=== PATIENT | male | born 1955 | race African-American/Black ===

== ENCOUNTER 2020-05-02 18:33 | Inpatient (IN) | payer OTHER, SELFPAY ==
[2020-05-02] VITALS (10 sets, daily range): BP systolic 142–171; BP diastolic 91–109; PULSE 72–101; RESP 18–35; TEMP 36.6–37.2; O2SAT 98–100
--- NOTE | ~2020-05-02 | XR_ITS ---
EXAMINATION: XR chest 1V portable INDICATION: Shortness of breath and hypoxia TECHNIQUE: Portable AP chest at 1907 hours COMPARISON: None available FINDINGS: There are airspace opacities of the mid and lower lung zones. No pleural effusion or pneumo thorax is identified. The heart size is upper limits of normal for technique. IMPRESSION: 1. Airspace opacities of the mid and lower lung zones, consistent with atelectasis versus pneumonia. Reviewed, dictated and finalized at location A. IMPRESSION: 1. Airspace opacities of the mid and lower lung zones, consistent with atelecta sis versus pneumonia.
--- NOTE | 2020-05-02 18:36 | ECG_ITS ---
Measurements Intervals [place] Rate: 97 P: MT: 0 QRS: 55 QRSD: 122 T: 96 QT: 376 QTc: 479 Interpretive Statements ECTOPIC ATRIAL RHYTHM CHANGES TO SINUS RHYTHM VENTRICULAR PREMATURE COMPLEX BORDERLINE ST-T WAVE ABNORMALITY- HIGH LATERAL LEADS BASELINE ARTIFACT- II, III, AVF, V2-V6 ABNORMAL ECG Electronically Signed On 05-02-2020 19:40:12 CDT by Willard Funk D.O.
--- NOTE | 2020-05-02 18:46 | ED.GENADULT ---
HPI - General Adult General Chief complaint: Shortness of Breath/Dyspnea Stated complaint: difficulty breathing Time Seen by Provider: 05/02/20 18:35 Source: patient and other (friend) History of Present Illness HPI narrative: Patient is a 65 y/o male complaining of severe SOB starting earlier today. There is no alleviating or exacerbating factor. He has some cough. He denies chest pain for fever. He was given Neb by EMS. He has history of COPD. He is not on O2. He reportedly had sat of 53% on RA when EMS arrived. He was given Neb and started on CPAP by EMS. Related Data Home Medications Medication Instructions Recorded Confirmed Unable to Obtain Home Medications 05/02/20 05/02/20 Allergies Allergy/AdvReac Type Severity Reaction Status Date / Time No Known Allergies Allergy Verified 05/02/20 18:47 Review of Systems Constitutional: Constitutional: Denies chills, Denies fever(s), Denies headache(s) and Denies weakness Eyes: Eyes: Denies blurry vision ENT: Denies headache(s) and Denies neck pain Cardiovascular: Cardiovascular: Denies chest pain and Reports dyspnea Respiratory: Respiratory: Reports cough and Reports dyspnea Gastrointestinal: Gastrointestinal: Denies abdominal pain, Denies diarrhea, Denies nausea and Denies vomiting Genitourinary: Genitourinary: Denies hematuria and Denies dysuria Musculoskeletal: Musculoskeletal: Denies back pain and Denies neck pain Neurologic: Denies headache(s) and Denies weakness [facility] Social History Social History Smoking status: Current every day smoker Tobacco type: cigarettes Alcohol intake: current Drinks per week: 10 Substance use: never Gender identity (if verbalized by the patient): Male Spiritual care concerns: No Exam Const: General: well developed and acute distress Orientation/consciousness: oriented to person, oriented to place, oriented to time and patient oriented x3 HENMT: Head: normocephalic Ears: external ears normal General nose exam: Normal external nose present Eyes: General: appearance normal, both eyes and all related structures Conjunctivae: conjunctivae normal Neck: Neck: normal visual inspection and full ROM Chest: Chest palpation & inspection: normal inspection of the chest and no tenderness Resp: Effort & Inspection: labored and tachypneic Cardio: Rate: tachycardic Rhythm: regular rhythm GI: GI Palp: No abdominal tenderness and Yes Soft to palpation Skin: General skin exam: normal color and turgor normal Neuro: General: oriented to person, oriented to place, oriented to time and patient oriented x3 Cognition (Neuro): normal cognition Extrem: General: normal to inspection, full ROM and edema bilateral Psych: Appearance: grossly normal Mental Status: mental status grossly normal Affect: normal affect Course Consultations Consultation #1: Discussed with DWIGHT Mendiola, who agrees to admit to Dr. Schaefer. Date: 05/02/20 Time: 19:43 Vital Signs Vital signs: Vital Signs Temperature 37.2 C 05/02/20 18:40 Pulse Rate 101 H 05/02/20 18:40 Respiratory Rate 34 H 05/02/20 18:40 Blood Pressure 161/100 H 05/02/20 18:40 Pulse Oximetry 100 05/02/20 18:40 Temperature 36.6 C 05/02/20 20:22 Pulse Rate 87 05/02/20 21:10 Respiratory Rate 31 H 05/02/20 21:10 Blood Pressure 164/100 H 05/02/20 20:49 Pulse Oximetry 100 05/02/20 21:10 Medical Decision Making Vital Signs Vital Signs: Vital Signs Temperature 37.2 C 05/02/20 18:40 Pulse Rate 101 H 05/02/20 18:40 Respiratory Rate 34 H 05/02/20 18:40 Blood Pressure 161/100 H 05/02/20 18:40 Pulse Oximetry 100 05/02/20 18:40 Temperature 36.6 C 05/02/20 20:22 Pulse Rate 87 05/02/20 21:10 Respiratory Rate 31 H 05/02/20 21:10 Blood Pressure 164/100 H 05/02/20 20:49 Pulse Oximetry 100 05/02/20 21:10 Lab Data Result diagrams: 05/02/20 18:42 10/0
[2020-05-02 18:47] LABS: Alveolar/Arterial O2 Gradient 32.3 mmHg; Base Excess ABG -0.8 mEq/l (+/-2.0); Device NASAL CANNULA; Fractional Inspired Oxygen 32 %; HCO3 ABG 27.3 mEq/l (22.0-26.0); Modified Allen's Test Pass; Oxygen Content ABG 17.7 %vol (16.0-22.0); Oxygen Saturation ABG 97.9 % (95.0-100.0); Oxyhemoglobin 94.3 % THb (90.0-100.0); PCO2 ABG 60.9 mmHg (35.0-45.0); PO2 ABG 124.6 mmHg (80.0-100.0); PO2 FiO2 Ratio Arterial Blood 3.89 %; Site Drawn RIGHT RADIAL; Total Hemoglobin 13.2 g/dL (12.0-18.0); pH ABG 7.269 (7.350-7.450)
[2020-05-02] MEDS: Please add drug allergy info to patient profile. 1 EACH XX (18:51)
[2020-05-02] MEDS: methylPREDNISolone SOD SUCC 125 MG VIAL IV PUSH (18:51)
[2020-05-02] MEDS: FUROSEMIDE INJ 40 MG/4 ML VIAL IV PUSH (18:51)
[2020-05-02 18:52] LABS: Basophils Percent Auto 0.5 % (0.2-1.2); Eosinophils Absolute Auto 0.2 K/mm3 (0-0.3); Eosinophils Percent Auto 2.4 % (0-4.4); Hemoglobin 12.5 g/dL (14.0-18.0); Immature Granulocyte Absolute 0.05 K/mm3 (0.00-0.031); Immature Granulocyte Percent A 0.6 % (0-0.5); Lymphocytes Absolute Auto 2.04 K/mm3 (0.9-3.2); Lymphocytes Percent Auto 24.3 % (18.3-44.2); Mean Corpuscular HGB Conc 32.1 g/dl (32-36); Mean Corpuscular Hemoglobin 29.6 pg (26-34); Mean Corpuscular Volume 92.4 fl (80-100); Mean Platelet Volume 10.2 fl (7.4-10.4); Monocytes Absolute Auto 0.5 K/mm3 (0.1-0.6); Monocytes Percent Auto 6.3 % (2.6-8.5); Neutrophils Absolute Auto 5.5 K/mm3 (1.3-6.7); Neutrophils Percent Auto 65.9 % (45.5-73.1); Platelet Count Result 251 k/mm3 (150-375); Red Blood Count 4.22 M/mm3 (4.6-6.20); Red Cell Distribution Width 14.8 % (11.5-14.5); White Blood Count 8.4 K/mm3 (4.5-10.0)
--- NOTE | 2020-05-02 18:53 | PC.NURSE ---
pt and family unable to give home medications at this time.
[2020-05-02 19:01] LABS: Alanine Aminotransferase 18 U/L (4-50); Albumin Level 4.5 g/dL (3.5-5.1); Alkaline Phosphatase 94 U/L (38-126); Anion Gap 12 mmol/L (8-16); Aspartate Amino Transferase 26 U/L (17-59); Bilirubin,Total 0.2 mg/dL (0.2-1.3); Blood Urea Nitrogen 13 mg/dL (9-20); Calcium 9.2 mg/dL (8.4-10.2); Carbon Dioxide 30 mmol/L (22-30); Chloride 99 mmol/L (98-107); Estimated CRCL calculation 78 ml/min; Estimated Glomerular Filt Rate > 60; Glucose 171 mg/dL (75-110); Potassium 3.7 mmol/L (3.4-5.0); Sodium 141 mmol/L (137-145)
--- NOTE | 2020-05-02 19:08 | PC.NURSE ---
assumed care of pt at this time. Report from Jarad
--- NOTE | 2020-05-02 19:08 | PC.NURSE ---
REPORT TO LAVELL CRUZ AT THIS TIME, SHE HAS ASSUMED PT CARE.
[2020-05-02 19:15] LABS: NT Pro B Type Natriuretic Pept 274 PG/ML (5-100); Troponin I 0.034 ng/mL (0.000-0.034)
--- NOTE | 2020-05-02 21:17 | PC.NURSE ---
This patient, Philip Barron, was admitted to Intensive Care Unit-2. Patient/family oriented to hospital policies and general routines including ID bracelet, bed and alarms, visiting hours, pain management, procedures, bathroom and other care routines, personal items, smoking policy, room service/diet, and visiting hours. Valuables list has been completed. Information on how to activate the Rapid Response Team has been discussed. Patient/Family are encouraged to report perceived risks to care and to ask questions if they do not understand what they are told or what they should do.
[2020-05-02 21:51] LABS: Alveolar/Arterial O2 Gradient 57.6 mmHg; Base Excess ABG 0.3 mEq/l (+/-2.0); Fractional Inspired Oxygen 35 %; HCO3 ABG 24.7 mEq/l (22.0-26.0); Oxygen Saturation ABG 98.9 % (95.0-100.0); Oxyhemoglobin 96.8 % THb (90.0-100.0); PCO2 ABG 39.2 mmHg (35.0-45.0); PO2 ABG 146.4 mmHg (80.0-100.0); PO2 FiO2 Ratio Arterial Blood 4.18 %; pH ABG 7.417 (7.350-7.450)
[2020-05-02 21:52] LABS: Device BIPAP; Expiratory Pressure 8 cmH2O; Inspiratory Pressure 14 cmH2O; Modified Allen's Test Pass; Site Drawn RIGHT RADIAL
[2020-05-02 22:19] LABS: Troponin I 0.069 ng/mL (0.000-0.034)
[2020-05-03] VITALS (10 sets, daily range): BP systolic 136–147; BP diastolic 69–88; PULSE 75–91; RESP 18–22; TEMP 36.4–37.4; O2SAT 95–99
[2020-05-03 00:47] LABS: Troponin I 0.069 ng/mL (0.000-0.034)
--- NOTE | 2020-05-03 06:53 | PM.IMHP ---
H&P: HPI History of Present Illness Date/Time: 05/03/20 06:53 Chief complaint: acute respiratory failure Narrative: Philip Barron is a 65 year old male with PMHx DMII, HTN, COPD. He has a history of COPD, uses inhalers at home, however does not recall the medications. Will call pharmacy to reconcile medications. He went to [place], [place] 2 days ago to meet some friends. After he came back home he felt SOB. He states he has these episodes of dyspnea every once in a while, last time 5 years ago. He still smokes 1/2 ppd. He denies sick contacts, travels outside of [place]. In the ED: he was found to be hypoxic 53% on RA and tachypneic with RR 30s. labs normal. ABG 7.269/60.9/124.6. He was given nebulizer treatment and CPAP. He was admitted overnight to ICU for acute hypoxic and hypercapnic respiratory failure. Review of Systems Review of Systems: All systems reviewed & are unremarkable except as noted in HPI and below PMFSH Past Medical History Medical History (Updated 05/03/20 @ 08:32 by Elza Apple DO) COPD (chronic obstructive pulmonary disease) DMII (diabetes mellitus, type 2) HTN (hypertension) Family History Family History (Updated 05/03/20 @ 08:31 by Elza Apple DO) Other Diabetes mellitus Hypertension Social History Social History (Updated 05/03/20 @ 08:47 by Elza Apple DO) Smoking packs per day: 0.5 Smoking cigarettes per day: 10.0 Smoking status: Current every day smoker Tobacco type: cigarettes Alcohol intake: current Drinks per week: 10 Substance use: never Living arrangements: alone Occupation/Education: unemployed Additional occupation/education comments: Disabled Gender identity (if verbalized by the patient): Male Spiritual care concerns: No Meds Home Medications and Allergies Home Medications Medication Instructions Recorded Confirmed Type albuterol sulfate 2.5 mg INHALATION Q4H PRN 05/03/20 05/03/20 History albuterol sulfate See Rx Instructions .ROUTE 05/03/20 05/03/20 History .COMPLEX PRN cilostazol 1 mg PO TID 05/03/20 05/03/20 History gabapentin 300 mg PO BID 05/03/20 05/03/20 History hydrochlorothiazide 25 mg PO DAILY 05/03/20 05/03/20 History sitagliptin [Januvia] 100 mg PO DAILY 05/03/20 05/03/20 History trazodone 50 mg PO HS 05/03/20 05/03/20 History Allergies Allergy/AdvReac Type Severity Reaction Status Date / Time No Known Allergies Allergy Verified 05/02/20 18:47 Vital Signs Vital Signs - 24 hr 05/02/20 18:40 05/02/20 18:45 05/02/20 18:52 Temperature 37.2 C Pulse Rate 101 H 97 93 Respiratory Rate 34 H 35 H Blood Pressure 161/100 H 171/109 H Pulse Oximetry 100 100 100 05/02/20 18:55 05/02/20 20:22 05/02/20 20:49 Temperature 36.6 C Pulse Rate 94 87 88 Respiratory Rate 34 H 26 H 19 Blood Pressure 158/91 H 164/100 H Pulse Oximetry 100 100 100 05/02/20 21:10 05/02/20 22:00 05/02/20 22:49 Temperature 37.1 C Pulse Rate 87 76 73 Respiratory Rate 31 H 18 Blood Pressure 142/92 H Pulse Oximetry 100 100 100 05/02/20 23:26 05/03/20 00:00 05/03/20 01:39 Temperature 37.4 C Pulse Rate 72 77 75 Respiratory Rate 19 22 H Blood Pressure 140/81 Pulse Oximetry 98 95 99 05/03/20 01:40 05/03/20 02:00 05/03/20 04:00 Temperature 37.1 C Pulse Rate 75 78 77 Respiratory Rate 18 18 20 Blood Pressure 140/73 147/88 H Pulse Oximetry 98 99 96 05/03/20 06:00 Temperature 36.4 C Pulse Rate 76 Respiratory Rate 22 H Blood Pressure 136/69 Pulse Oximetry 98 H&P: Results Labs Labs: Short CBC 05/02/20 Range/Units 18:42 WBC 8.4 (4.5-10.0) K/mm3 Hgb 12.5 L (14.0-18.0) g/dL Hct 39.0 L (42.0-52.0) % Plt Count 251 (150-375) k/mm3 BMP 05/02/20 18:42 Sodium 141 Potassium 3.7 Chloride 99 Carbon Dioxide 30 BUN 13 Creatinine 1.00 Glucose 171 H Calcium 9.2 Cardiac Enzymes 05/02/20 05/02/20 05/03/20 Range/Units 18:42 21:48 00:10 Trop
[2020-05-03 09:29] LABS: Glucose Point of Care 166 (65-105)
--- NOTE | 2020-05-03 09:34 | PM.SD ---
Same Day Admit/Disch: HPI History of Present Illness Chief complaint: acute respiratory failure Narrative: Philip Barron is a 65 year old male with PMHx DMII, HTN, COPD. He has a history of COPD, uses inhalers at home, however does not recall the medications. Will call pharmacy to reconcile medications. He went to [place], [place] 2 days ago to meet some friends. After he came back home he felt SOB. He states he has these episodes of dyspnea every once in a while, last time 5 years ago. He still smokes 1/2 ppd. He denies sick contacts. Denies fever, chills, nausea, vomiting, diarrhea, chest pain, sputum production. In the ED: he was found to be hypoxic 53% on RA and tachypneic with RR 30s. labs normal, troponin <0.08. ABG 7.269/60.9/124.6. He was given nebulizer treatment and Bipap for 1 hour. He was admitted overnight to ICU for acute hypoxic respiratory failure. F/u ABG showed 7.417/39.2/146.4. Once he got to the ICU, he was O2sat 100% on room air. [facility] Past Medical History Medical History (Updated 05/03/20 @ 09:51 by Elza Apple DO) COPD (chronic obstructive pulmonary disease) Diabetes mellitus with peripheral autonomic neuropathy HTN (hypertension) Insomnia Family History Family History (Updated 05/03/20 @ 08:31 by Elza Apple DO) Other Diabetes mellitus Hypertension Social History Social History (Updated 05/03/20 @ 08:47 by Elza Apple DO) Smoking packs per day: 0.5 Smoking cigarettes per day: 10.0 Smoking status: Current every day smoker Tobacco type: cigarettes Alcohol intake: current Drinks per week: 10 Substance use: never Living arrangements: alone Occupation/Education: unemployed Additional occupation/education comments: Disabled Gender identity (if verbalized by the patient): Male Spiritual care concerns: No Same Day Admit/Disch: Med Pre-admit Medications Home Medications Medication Instructions Recorded Confirmed Type albuterol sulfate 2.5 mg INHALATION Q4H PRN 05/03/20 05/03/20 History albuterol sulfate See Rx Instructions .ROUTE 05/03/20 05/03/20 History .COMPLEX PRN cilostazol 1 mg PO TID 05/03/20 05/03/20 History gabapentin 300 mg PO BID 05/03/20 05/03/20 History hydrochlorothiazide 25 mg PO DAILY 05/03/20 05/03/20 History sitagliptin [Januvia] 100 mg PO DAILY 05/03/20 05/03/20 History trazodone 50 mg PO HS 05/03/20 05/03/20 History Exam Const: General: no acute distress HENMT: General nose exam: Normal nares present Mouth: Yes moist mucous membranes Eyes: General: appearance normal, both eyes and all related structures Sclera: sclerae normal Pupils: Equal, round and reactive pupils present Neck: Neck: supple and no JVD Resp: Effort & Inspection: normal respiratory effort Auscultation: no crackles, no rales, no rhonchi and wheezes expiratory wheezes and scattered wheezes Cardio: Rate: regular rate Rhythm: regular rhythm Heart sounds: no murmurs and no rubs GI: Auscultation: normal bowel sounds Skin: General skin exam: normal color Rashes: rashes noted Other: RLE distal dryness Neuro: Cognition (Neuro): normal cognition Speech: normal speech Motor exam (neuro): 5/5 motor strength present throughout Sensory Exam: normal sensation Extrem: General: normal to inspection and normal exam except as noted Other: dry skin RLE distal Psych: Mental Status: mental status grossly normal Affect: normal affect DS: Data Data Completed and Pending Labs on day of discharge: Labs from last 24 hours 05/03/20 05/03/20 05/02/20 09:08 00:10 21:48 WBC RBC Hgb Hct MCV MCH MCHC RDW Plt Count MPV Immature Gran % (Auto) Neut % (Auto) Lymph % (Auto) [place] % (Auto) Eos % (Auto) Baso % (Auto) Lymph # (Auto) [place] # (Auto) Eos # (Auto) Baso # (Auto) Abs Immat Gran (auto) Absolute Neuts (auto) Absolute Nucleated RBC Nucleated RBC % Puncture Si
[2020-05-03] MEDS: ALBUTEROL SULFATE (*SP) AEROSOL 1 PUFF 2 PUFF INHALATION ×2 (10:07→11:50)
[2020-05-03 12:39] LABS: Glucose Point of Care 156 (65-105)
[2020-05-03 14:31] LABS: SARS-CoV-2 RNA PCR Negative
== END 2020-05-03 13:40 | disposition home or self-care (01) | DRG 133 ==
LOC: ANHED 19:52 → ANHICU 21:34
PROVIDERS: Admitting Provider Internal Medicine; Emergency Provider Emergency Medicine; Visit Provider Student in an Organized Health Care Education/Training Program
DX: J96.01 Acute respiratory failure with hypoxia (principal); J44.1 Chronic obstructive pulmonary disease with (acute) exacerbation; Z20.828 Contact with and (suspected) exposure to other viral communicable diseases; E11.43 Type 2 diabetes mellitus with diabetic autonomic (poly)neuropathy; I10 Essential (primary) hypertension; G47.00 Insomnia, unspecified; F17.210 Nicotine dependence, cigarettes, uncomplicated
CPT/HCPCS: 36415; 36600; 71045; 80053; 82805; 83880; 84484; 85025; 87635; 93005; 94002; 94640; 96374; 96375; 99291; A9270; C9803; J1940; J2930; U0003

== ENCOUNTER 2021-02-27 18:21 | Inpatient (IN) | payer MEDICARE, MEDICAID, SELFPAY ==
--- NOTE | ~2021-02-27 | MR_ITS ---
EXAMINATION: MR brain/brain stem wo/w con DATE: 02/28/2021 12:45 INDICATION: Seizure. TECHNIQUE: Magnetic resonance imaging (MRI) of the brain and brainstem was performed without and with 20 mL MultiHance intravenous contrast. Sequences included sagittal and axial T1-weighted FSE, axial diffusion-weighted FS EPI, axial T2*-weighted GRE, axial T2-weighted FLAIR Propeller, and axial T2-we ighted Propeller. Postcontrast sequences included axial and coronal T1-weighted FSE. Apparent diffusi on coefficient (ADC) maps were created. COMPARISON: Head CT 02/27/2021 FINDINGS: There is old lacunar infarcts in the artem and thalami. There are old infarcts involving kathya ateral basal ganglia and anterior limb left internal capsule. There is a small old infarct in right f rontal lobe. There are scattered areas of nonspecific increased T2-weighted signal intensity in the c erebral white matter, which is within normal limits for the patient's age. There is no intracranial h emorrhage, acute infarction, or abnormal intracranial mass lesion. There is ex vacuo dilatation of an terior body of left lateral ventricle. There is an old blowout fracture of medial wall of left orbit. There are likely changes of right ocular lens replacement surgery. The mastoid air cells are normal. IMPRESSION: 1. Multiple old infarcts in the brain. Reviewed, dictated and finalized at location A.
--- NOTE | ~2021-02-27 | CT_ITS ---
EXAMINATION: CT brain wo con DATE: 02/27/2021 20:03 INDICATION: Seizure. TECHNIQUE: Computed tomography (CT) of the head was performed without intravenous contrast. The mA wa s adjusted according to patient size. Iterative reconstruction technique was employed. The dose-lengt h product was 605.33 mGy-cm. COMPARISON: None FINDINGS: There is an old lacunar infarct in the artem. There are old infarcts involving the bilateral basal ganglia and anterior limb left internal capsule. There is a small old infarct in right frontal lobe. There is no intracranial hemorrhage, acute infarction, or abnormal intracranial mass lesion. T he ventricles are normal in size. There are likely changes of right ocular lens replacement surgery. There is an old blowout fracture of medial wall of left orbit. The mastoid air cells are normal. IMPRESSION: 1. Multiple old infarcts in the brain. Reviewed, dictated and finalized at location A.
--- NOTE | ~2021-02-27 | US_ITS ---
EXAMINATION: US carotid duplex BI DATE: 02/28/2021 13:09 INDICATION: Stroke and seizure. Cerebral atherosclerosis. TECHNIQUE: Grayscale, color Doppler, and pulsed Doppler images of the cervical carotid arteries were obtained. The degree of vessel stenosis is placed in one of the following categories: normal, <50%, 5 0-69%, >=70% but less than near-occlusion, near-occlusion, or total occlusion. Note that percent sten osis relative to normal distal artery lumen diameter is indirectly measured from velocity measurement s as described by Jose Ramon, et al. Radiology 2003; [id number]. COMPARISON: None. FINDINGS: RIGHT: The right common carotid artery (CCA) peak systolic velocity (PSV) is 69 cm/s. The right internal car otid artery (ICA) PSV is 84 cm/s. The right ICA end-diastolic velocity (EDV) is 40 cm/s. The right IC A/CCA PSV ratio is 1.2. Grayscale and color Doppler images yield an estimate of <50% diameter reducti on from plaque in the ICA. The external carotid artery (ECA) PSV is 117 cm/s. There is antegrade flow in the right vertebral artery. LEFT: The left CCA PSV is 61 cm/s. The left ICA PSV is 85 cm/s. The left ICA EDV is 28 cm/s. The left ICA/C CA PSV ratio is 1.4. Grayscale and color Doppler images yield an estimate of <50% diameter reduction from plaque in the ICA. The ECA PSV is 68 cm/s. There is antegrade flow in the left vertebral artery. IMPRESSION: 1. <50% stenosis in the right internal carotid artery. 2. <50% stenosis in the left internal carotid artery. Reviewed, dictated and finalized at location A.
[2021-02-27 18:20] VITALS: BP 132/92; PULSE 86; RESP 22; TEMP 36.2; O2SAT 98
[2021-02-27 18:27] VITALS: RESP 16; O2SAT 99
--- NOTE | 2021-02-27 19:09 | PC.NURSE ---
report to LAVELL Ortiz
--- NOTE | 2021-02-27 19:25 | PC.NURSE ---
Assumed care of pt at this time. Pt A&Ox4, resting on stretcher. No complaints at this time. Reviewed visitor policy with pt and family.
[2021-02-27 19:26] VITALS: BP 122/77; PULSE 89; RESP 26; O2SAT 97
[2021-02-27 19:50] LABS: Alanine Aminotransferase 19 U/L (4-50); Albumin Level 4.4 g/dL (3.5-5.1); Alkaline Phosphatase 78 U/L (38-126); Anion Gap 16 mmol/L (8-16); Aspartate Amino Transferase 28 U/L (17-59); Bilirubin,Total 0.4 mg/dL (0.2-1.3); Blood Urea Nitrogen 17 mg/dL (9-20); Calcium 9.6 mg/dL (8.4-10.2); Carbon Dioxide 19 mmol/L (22-30); Chloride 102 mmol/L (98-107); Estimated CRCL calculation 73 ml/min; Estimated Glomerular Filt Rate > 60; Glucose 122 mg/dL (65-110); Phosphorus 4.1 mg/dL (2.5-4.5); Potassium 3.8 mmol/L (3.4-5.0); Sodium 137 mmol/L (137-145)
[2021-02-27 19:54] LABS: Basophils Percent Auto 0.4 % (0.2-1.2); Eosinophils Absolute Auto 0.2 K/mm3 (0-0.3); Eosinophils Percent Auto 2.3 % (0-4.4); Hematocrit 37.5 % (42.0-52.0); Hemoglobin 11.7 g/dL (14.0-18.0); Immature Granulocyte Absolute 0.05 K/mm3 (0.00-0.031); Immature Granulocyte Percent A 0.6 % (0-0.5); Lymphocytes Absolute Auto 2.41 K/mm3 (0.9-3.2); Lymphocytes Percent Auto 26.6 % (18.3-44.2); Mean Corpuscular HGB Conc 31.2 g/dl (32-36); Mean Corpuscular Hemoglobin 27.6 pg (26-34); Mean Corpuscular Volume 88.4 fl (80-100); Monocytes Absolute Auto 0.7 K/mm3 (0.1-0.6); Monocytes Percent Auto 8.2 % (2.6-8.5); Neutrophils Absolute Auto 5.6 K/mm3 (1.3-6.7); Neutrophils Percent Auto 61.9 % (45.5-73.1); Platelet Count Result 243 k/mm3 (150-375); Red Blood Count 4.24 M/mm3 (4.6-6.20); Red Cell Distribution Width 15.2 % (11.5-14.5); White Blood Count 9.1 K/mm3 (4.5-10.0)
[2021-02-27 20:02] LABS: Ethanol 42 mg/dL (<10)
[2021-02-27 20:26] LABS: Add Urine Microscopic? YES; Appearance Urine Clear (Clear); Bilirubin Urine Negative (Negative); Blood Urine Negative (Negative); Color Urine Yellow (Yellow); Glucose Urine UA Negative (Negative); Ketones Urine Negative (Negative); Leukocyte Esterase Ur Negative LEU/UL (Negative); Nitrate Urine Negative (Negative); Protein Urine 1+ mg/dL (Negative); RBC Urine 0-2 /hpf (0-2); Specific Grav Ur 1.015 (1.001-1.035); Squamous Epithelial Cell Urine Rare /hpf (Few); Urobilinogen Urine Negative mg/dL (<2.0); WBC Urine 0-3 /hpf
[2021-02-27 20:39] LABS: Amphetamine Screen Urine Negative (Negative); Barbiturate Screen Urine Negative (Negative); Benzodiazepines Screen Urine Negative (Negative); Cannabinoid Screen Urine Negative (Negative); Cocaine Screen Urine Negative (Negative); Methadone Screen Urine Negative (Negative); Opiate Screen Urine Negative (Negative); Phencyclidine Screen Urine Negative (Negative)
[2021-02-27 21:17] VITALS: BP 111/54; PULSE 85; RESP 27; O2SAT 100
[2021-02-27 22:15] VITALS: BP 125/79; PULSE 82; RESP 29; O2SAT 100
--- NOTE | 2021-02-27 22:59 | PC.NURSE ---
Pt c/o SOB at this time, increased WOB noted. Pt states he uses inhalers at home and hasn't been able to use since hes been in ED. EDP notified.
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
[2021-02-27] MEDS: ALBUTEROL SULFATE (*SP) AEROSOL 1 PUFF 2 PUFF INHALATION (23:32)
--- NOTE | 2021-02-27 23:36 | ECG_ITS ---
Measurements Intervals [place] Rate: 87 P: 258 [place]: 103 QRS: 50 QRSD: 98 T: 49 QT: 363 QTc: 439 Interpretive Statements ECTOPIC ATRIAL RHYTHM NONSPECIFIC T-WAVE ABNORMALITY- DIFFUSE LEADS BASELINE ARTIFACT- I, II, III, AVR, AVL, AVF, V4-V6 ABNORMAL ECG Electronically Signed On 03-01-2021 8:49:11 CDT by Willard Funk D.O.
--- NOTE | 2021-02-27 23:36 | PC.NURSE ---
respiratory at bedside
[2021-02-28] VITALS (15 sets, daily range): BP systolic 111–146; BP diastolic 65–90; PULSE 60–84; RESP 14–22; TEMP 36.1–36.9; O2SAT 96–100; BMI 32.5
--- NOTE | 2021-02-28 | ECHO_ITS ---
Patient Info Name: Philip Barron Age: 66 years : 1955 Gender: Male Ht: 73 in Wt: 246 lbs BSA: 2.43 m2 HR: 79 bpm BP: 132 / 81 mmHg Heart Rhythm: Sinus Rhythm Technical Quality: Fair Exam Date: 02/28/2021 9:49 AM Exam Location: [facility] Exam Room: [facility] Patient Status: Inpatient Admit Date: 02/27/2021 Staff Ordering Physician: Brenna Trejo MD Metalsmith Apprentice: [place] RDCS Attending Provider: Brenna Trejo MD Referring Physician: Maya JEFF; Exam Type: CA echo doppler color flow Study Info Indications - seizure Complete two-dimensional, color flow and Doppler transthoracic echocardiogram is performed. Summary 1. Complete two-dimensional, color flow and Doppler transthoracic echocardiogram is performed. 2. Left ventricular chamber dimension is normal. 3. Left ventricular systolic function is hyperdynamic, estimated at >70%. 4. The aortic valve is normal. 5. The mitral valve has normal leaflets. 6. Small posterior pericardial effusion. Left Ventricle Left ventricular chamber dimension is normal. Left ventricular systolic function is hyperdynamic, estimated at >70%. The left ventricular diastolic function is normal. Right Ventricle Right ventricular chamber dimension is normal. Left Atria Left atrial chamber dimension is normal. Right Atria Right atrial chamber dimension is normal. Aortic Valve The aortic valve is normal. Pulmonic Valve The pulmonic valve is not well visualized. Mitral Valve The mitral valve has normal leaflets. Tricuspid Valve The tricuspid valve leaflets are normal. Pericardium/Pleural There is trivial pericardial effusion. Aorta The aortic root size at the sinus of Valsalva is normal. Left Ventricular Outflow Tract Name Value Normal LVOT 2D LVOT Diameter 2.2 cm LVOT Doppler LVOT Peak Gradient 3 mmHg LVOT Mean Gradient 2 mmHg LVOT VTI 19 cm LVOT VTI/AV VTI Ratio 0.9 LVOT Stroke Volume 72 ml LVOT CO 14.1 l/min LVOT CI 5.8 l/min/m2 Pulmonic Valve Name Value Normal PV Doppler PV Peak Gradient 3 mmHg Mitral Valve Name Value Normal MV Doppler MV Decel [place] 333 cm/s2 MV PHT 60 ms MV Area (PHT) 3.7 cm2 4.0-5.0 MV Diastolic Function
[2021-02-28] MEDS: levETIRAcetam 1000MG/NACL100ML 1,000 MG/100 ML BAG 400 MG IVPB (00:15)
--- NOTE | 2021-02-28 00:53 | PM.IMHP ---
H&P: HPI History of Present Illness Date/Time: 02/28/21 00:53 Chief Complaint: SEIZURE Narrative: THIS IS A 66-YEAR-OLD MALE WITH PAST MEDICAL HISTORY SIGNIFICANT FOR COPD / EMPHYSEMA, PATIENT SMOKES 10 CIGARETTES A DAY DAILY, HYPERTENSION, TYPE 2 DIABETES MELLITUS. PATIENT HAS BEEN HIS USUAL STATE OF HEALTH UP UNTIL TODAY IN THE AFTERNOON AFTER ARRIVING HOME FROM [employer]OPPING AROUND WHEN HE HAD HIS EYES ROLL OVER AND HE FELL WITH A SEIZURE GRAND MAL SEIZURE TO THE GROUND CALLED EMS AND PATIENT WAS RUSHED TO THE HOSPITAL THERE WAS NO RELAXATION OF OF SPHINCTERS. PATIENT HAS NO RECOLLECTION OF THE EVENT. AT THE TIME OF MY VISIT HE DENIED ANY DISCOMFORT NO SHORTNESS OF BREATH NO COUGH NO SPUTUM PRODUCTION NO FEVERS NO RIGORS NO CHILLS NO DIZZINESS NO LIGHTHEADEDNESS NO HEADACHES NO CHANGES IN VISION. PRELIMINARY WORKUP WAS SIGNIFICANT FOR CT OF THE HEAD WITH MULTIPLE OLD STROKES. Review of Systems Review of Systems: SEIZURE Constitutional: Constitutional: Denies chills, Denies fatigue, Denies fever(s) and Denies weakness Eyes: Eyes: Denies change in vision ENT: Denies dysphagia, Denies dizziness, Denies nasal congestion, Denies nasal discharge, Denies nasal obstruction and Denies odynophagia Cardiovascular: Cardiovascular: Denies chest pain, Denies chest pain at rest, Denies chest pain with activity, Denies irregular heart rhythm, Denies leg edema, Denies lightheadedness, Denies radiating jaw, neck or arm pain, Denies palpitations, Denies dyspnea and Denies dyspnea on exertion Respiratory: Respiratory: Denies cough, Denies dyspnea and Denies wheezing Gastrointestinal: Gastrointestinal: Denies abdominal pain, Denies diarrhea, Denies nausea and Denies vomiting Genitourinary: Genitourinary: Reports no additional male genitourinary complaints Musculoskeletal: Comments: RIGHT WRIST BRACE Integumentary/Breasts: Skin/Breast: Reports system reviewed and no additional complaints, except as docu Neurologic: Denies Neuro-related abnormal movements, Denies vertigo, Denies dizziness and Reports seizure-like activity Psychiatric: Psychiatric: Reports no additional psychiatric complaints Endocrine: Endocrine: Reports no additional endocrine complaints Hematologic/Lymphatic: Hematologic/Lymphatic: Reports no additional hematologic/lymphatic complaints Allergic/Immunologic: Allergic/Immunologic: Reports no additional allergic/immunologic complaints [facility] Past Medical History Medical History (Updated 02/28/21 @ 01:05 by Brenna Trejo MD) COPD (chronic obstructive pulmonary disease) Diabetes mellitus with peripheral autonomic neuropathy HTN (hypertension) Insomnia Family History Family History (Updated 05/03/20 @ 08:31 by Elza Apple DO) Other Diabetes mellitus Hypertension Social History Social History (Updated 05/03/20 @ 08:47 by Elza Apple DO) Smoking packs per day: 0.5 Smoking cigarettes per day: 10.0 Smoking status: Current every day smoker Tobacco type: cigarettes Alcohol intake: current Drinks per week: 10 Substance use: never Additional occupation/education comments: Disabled Gender identity (if verbalized by the patient): Male Spiritual care concerns: No Meds Home Medications and Allergies Home Medications Medication Instructions Recorded Confirmed Type Januvia 100 mg PO DAILY 05/03/20 05/03/20 History albuterol sulfate See Rx Instructions .ROUTE 05/03/20 05/03/20 History .COMPLEX PRN cilostazol 1 mg PO TID 05/03/20 05/03/20 History gabapentin 300 mg PO BID 05/03/20 05/03/20 History hydrochlorothiazide 25 mg PO DAILY 05/03/20 05/03/20 History ipratropium-albuterol 3 ml INHALATION QID PRN #120 ml 05/03/20 Rx prednisone 40 mg PO DAILY #10 tablet 05/03/20 Rx trazodone 50 mg PO HS 05/03/20 05/03/20 History Allergies Allergy/AdvReac Type Severity Reaction Status Date / Time No Known Allergies Allergy Verified 02/27/21 18:25 Cindy
--- NOTE | 2021-02-28 01:17 | PC.NURSE ---
This patient, Philip Barron, was admitted to [facility] Surg Room 315-02. Patient/family oriented to hospital policies and general routines including ID bracelet, bed and alarms, visiting hours, pain management, procedures, bathroom and other care routines, personal items, smoking policy, room service/diet, and visiting hours. Information on how to activate the Rapid Response Team has been discussed. Patient/Family are encouraged to report perceived risks to care and to ask questions if they do not understand what they are told or what they should do.
[2021-02-28] MEDS: ALBUTEROL SULFATE NEB 2.5 MG/0.5 ML INH INHALATION ×5 (03:05→21:26)
[2021-02-28] MEDS: IPRATROPIUM BR 0.02% INH SOLN 0.5 MG/2.5 ML VIAL INHALATION ×5 (03:05→21:26)
--- NOTE | 2021-02-28 10:14 | WPDNEURCNPN ---
Assessment and Plan Additional Plan evaluation up until now has documented the fairly normal CBC with hemoglobin of 11.7 normal chemistry with blood sugar elevated and CT scan with multiple stroke without any bleed and normal ventricles, patient will be staffed is started on anticonvulsants and MRI of the brain will be obtained rule out any space-occupying lesion Consult date: 02/28/21 Time Seen: 08:30 HPI: Philip Barron is a 66 year old male has been admitted to the hospital with the information that he was in his usual state of health up until the day of admission in the afternoon after arriving from the [employer] shopping and suddenly his eyes rolled over and he fell with a seizure which was described as grand mal he was rushed to the hospital patient was unable to recall the event and complained of no discomfort at the time of initial evaluation patient does carry the history of 1. COPD with emphysema with history of smoking 10 cigarettes a day daily, history of COPD, she of diabetes mellitus with peripheral and autonomic neuropathy,h/o of hypertension, patient is reportedly drinking 10 drinks per week and smoking every day, his medications include Januvia, gabapentin, hydrochlorothiazide, prednisone, and trazodone, Review of Systems Review of Systems: All systems reviewed & are unremarkable except as noted in HPI and below PMFSH Past Medical History Medical History COPD (chronic obstructive pulmonary disease) Diabetes mellitus with peripheral autonomic neuropathy HTN (hypertension) Insomnia Family History Family History Sibling Diabetes mellitus Mother Hypertension Social History Social History Smoking packs per day: 0.5 Smoking cigarettes per day: 10.0 Years smoked: 49 Smoking pack-years: 24.50 Smoking status: Heavy tobacco smoker Tobacco type: cigarettes Second hand tobacco smoke exposure: Yes Alcohol intake: current Drinks per week: 7 Substance use: never Additional occupation/education comments: Disabled Gender identity (if verbalized by the patient): Male Spiritual care concerns: No Meds Home Medications and Allergies Home Medications Medication Instructions Recorded Confirmed Type Januvia 100 mg PO DAILY 05/03/20 02/28/21 History albuterol sulfate See Rx Instructions .ROUTE 05/03/20 02/28/21 History .COMPLEX PRN gabapentin 300 mg PO BID 05/03/20 02/28/21 History hydrochlorothiazide 25 mg PO DAILY 05/03/20 02/28/21 History ipratropium-albuterol 3 ml INHALATION QID PRN #120 ml 05/03/20 02/28/21 Rx Allergies Allergy/AdvReac Type Severity Reaction Status Date / Time No Known Allergies Allergy Verified 02/27/21 18:25 Vital Signs Vital Signs - 24 hr 02/27/21 18:20 02/27/21 18:27 02/27/21 19:26 Temperature 36.2 C L Pulse Rate 86 89 Respiratory Rate 22 H 16 26 H Blood Pressure 132/92 H 122/77 Pulse Oximetry 98 99 97 02/27/21 21:17 02/27/21 22:15 02/28/21 00:18 Temperature Pulse Rate 85 82 84 Respiratory Rate 27 H 29 H 22 H Blood Pressure 111/54 L 125/79 116/71 Pulse Oximetry 100 100 96 02/28/21 01:00 02/28/21 03:05 02/28/21 06:00 Temperature 36.1 C L 36.6 C Pulse Rate 82 66 75 Respiratory Rate 18 16 18 Blood Pressure 111/65 132/81 Pulse Oximetry 97 100 02/28/21 08:32 02/28/21 08:40 Temperature Pulse Rate 70 74 Respiratory Rate 18 18 Blood Pressure Pulse Oximetry Exam Narrative: examination revealed him to be awake alert cooperative in no obvious acute distress head normocephalic with no cranial bruit ear nose throat examination normal neck is supple with no cervical bruit no thyromegaly no lymphadenopathy heart regular with no murmur lungs clear with occasional rhonchi abdomen is soft with no organomegaly and neurologically was awake alert oriented x3 his speech nor dysphasic
[2021-02-28] MEDS: GABAPENTIN 300 MG CAPSULE PO ×2 (10:59→21:33)
[2021-02-28] MEDS: levETIRAcetam 500 MG TABLET PO ×2 (10:59→21:33)
[2021-02-28] MEDS: NICOTINE (*PBKC) 21 MG PATCH 1 PATCH TRANSDERM (11:50)
[2021-02-28] MEDS: hydroCHLOROthiazide 25 MG TABLET PO (11:51)
[2021-02-28] MEDS: ATORVASTATIN 40 MG TABLET PO (11:51)
[2021-02-28] MEDS: CLOPIDOGREL BISULFATE 75 MG TABLET PO (11:51)
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
[2021-02-28 17:43] LABS: Glucose Point of Care 206 mg/dl (65-105)
[2021-02-28] MEDS: INSULIN ASPART (*BKC) 100 UNITS/ML SUB-Q (18:51)
[2021-02-28] MEDS: THIAMINE HCL 100 MG TABLET PO (18:51)
[2021-02-28 21:49] LABS: Glucose Point of Care 136 mg/dl (65-105)
[2021-03-01] VITALS (14 sets, daily range): BP systolic 129–145; BP diastolic 76–88; PULSE 64–79; RESP 18–20; TEMP 36.2–36.7; O2SAT 98–100
[2021-03-01] MEDS: ALBUTEROL SULFATE NEB 2.5 MG/0.5 ML INH INHALATION ×4 (00:29→12:39)
[2021-03-01] MEDS: IPRATROPIUM BR 0.02% INH SOLN 0.5 MG/2.5 ML VIAL INHALATION ×4 (00:29→12:39)
[2021-03-01 06:51] LABS: Hematocrit 35.1 % (42.0-52.0); Hemoglobin 11.1 g/dL (14.0-18.0); Mean Corpuscular HGB Conc 31.6 g/dl (32-36); Mean Corpuscular Hemoglobin 27.5 pg (26-34); Mean Corpuscular Volume 87.1 fl (80-100); Mean Platelet Volume 10.5 fl (7.4-10.4); Platelet Count Result 205 k/mm3 (150-375); Red Blood Count 4.03 M/mm3 (4.6-6.20); Red Cell Distribution Width 14.9 % (11.5-14.5); White Blood Count 7.4 K/mm3 (4.5-10.0)
[2021-03-01 07:03] LABS: Anion Gap 7 mmol/L (8-16); Blood Urea Nitrogen 20 mg/dL (9-20); Calcium 9.8 mg/dL (8.4-10.2); Carbon Dioxide 27 mmol/L (22-30); Chloride 102 mmol/L (98-107); Estimated CRCL calculation 79 ml/min; Estimated Glomerular Filt Rate > 60; Glucose 142 mg/dL (65-110); Potassium 3.9 mmol/L (3.4-5.0); Sodium 136 mmol/L (137-145)
[2021-03-01 07:22] LABS: Hemoglobin A1C 7.6 % (<5.7)
[2021-03-01 07:39] LABS: Glucose Point of Care 156 mg/dl (65-105)
[2021-03-01] MEDS: NICOTINE (*PBKC) 21 MG PATCH 1 PATCH TRANSDERM (07:58)
[2021-03-01] MEDS: hydroCHLOROthiazide 25 MG TABLET PO (07:58)
[2021-03-01] MEDS: THIAMINE HCL 100 MG TABLET PO (07:59)
[2021-03-01] MEDS: FOLIC ACID 1 MG TABLET PO (07:59)
[2021-03-01] MEDS: ATORVASTATIN 40 MG TABLET PO (07:59)
[2021-03-01] MEDS: ENOXAPARIN 40 MG/0.4 ML SYRINGE SUB-Q (07:59)
[2021-03-01] MEDS: levETIRAcetam 500 MG TABLET PO (07:59)
[2021-03-01] MEDS: CLOPIDOGREL BISULFATE 75 MG TABLET PO (07:59)
[2021-03-01] MEDS: GABAPENTIN 300 MG CAPSULE PO (07:59)
[2021-03-01 08:06] LABS: Folic Acid 6.8 ng/mL (2.76->20)
--- NOTE | 2021-03-01 08:36 | PCRCNOTE ---
Window of time for administration has passed. See next scheduled administration.
[2021-03-01 09:02] LABS: Thyroid Stimulating Hormone Reflex < 0.015 uIU/mL (0.465-4.68)
--- NOTE | 2021-03-01 10:10 | WPDNEUROLOGY ---
Neurology EEG Report General Information Date of Study: 02/28/21 TEST eeg DIAGNOSIS seizures CONDITION OF RECORDING awake drowsy and sleep EEG NUMBER [id number] CLINICAL HISTORY patient reported he was told he had a stroke yesterday, he does not remember what happened or how he got here but feels fine now EEG DESCRIPTION basic resting occipital frequency consists of moderate amount of medium voltage 8 to 10 hertz per 2nd alpha admixed with low-voltage 15 to 21 hertz per 2nd beta activity. Low-voltage beta activity seen diffusely during drowsiness. Bilateral symmetrical sleep spindles are seen during sleep with muscle artifacts. Hyperventilation not done. Photic stimulation not done. Non paroxysmal. Nonfocal. Nonlateralizing. IMPRESSION No significant abnormalities noted
[2021-03-01 10:41] LABS: Free T4 Free Thyroxine Reflex 0.79 ng/dL (0.78-2.19)
[2021-03-01 11:41] LABS: Total Triiodothyronine (T3) 1.09 NG/ML (0.97-1.69)
[2021-03-01 12:26] LABS: Glucose Point of Care 148 mg/dl (65-105)
--- NOTE | 2021-03-01 13:39 | PM.DS ---
DS: Admitting Diagnosis Admitting Diagnosis Seizure DS: Discharge Diagnosis Discharge Diagnosis (1) Seizure: Code(s): R56.9 - Unspecified convulsions Status: Acute Assessment and Plan: (2) Cerebrovascular accident, old: Code(s): Z86.73 - Personal history of transient ischemic attack (TIA), and cerebral infarction without residual deficits Status: Acute (3) COPD (chronic obstructive pulmonary disease) with emphysema: Code(s): J43.9 - Emphysema, unspecified Status: Acute (4) Tobacco dependence: Code(s): F17.200 - Nicotine dependence, unspecified, uncomplicated Status: Acute (5) Alcoholism: Code(s): F10.20 - Alcohol dependence, uncomplicated Status: Acute (6) HTN (hypertension): Code(s): I10 - Essential (primary) hypertension Status: Acute (7) Diabetes mellitus with peripheral autonomic neuropathy: Code(s): E11.43 - Type 2 diabetes mellitus with diabetic autonomic (poly)neuropathy Status: Acute (8) Subclinical hyperthyroidism: Code(s): E05.90 - Thyrotoxicosis, unspecified without thyrotoxic crisis or storm Status: Acute DS: Summary Hospital Course Reason for hospitalization: 66yo male with Alcoholism, COPD, DM and HTN here for seizure. Please see H&P for details. Hospital Course: Patient admitted to [address] [place] [address] for seizures. He was started on Keppra. Etiology unclear but he does have history of strokes by the CT scan. He was unaware of having any strokes in the past. Urine drug screen was negative. Alcohol level was 42. He does admit to drinking 1 pint of alcohol per week so consider alcohol withdrawal seizures. Consider also dysrhythmia and as such he was placed on telemetry but no signifincat dysrhythmias noted. Carotid Doppler negative for severe stenosis. Brain MRI showed no acute findings but did reveal old CVAs. EEG was completed which showed normal record. Neurology was consulted. Patient was educated about the benefits of smoking and alcohol cessation. We started thiamine and folate and he was placed on CIWA protocol (CIWA ranged from 0-1). Blood pressure remained well controlled. Plavix and Lipitor added for his history of CVA but will change to aspirin. B12/Folate levels normal. TSH was <0.015 but FT4 0.79 and TT3 1.1 so felt to be subclinical hyperthyroid. No treatment but with plans for repeat thyroid levels after discharge. Glucose remained reasonably well controlled but A1c 7.6. Will need tighter glycemic control but this was deferred to his PCP. Patient did well and was able to be discharged home on 03/01/21. Patient's PCP is Angelia Oconnell but could not locate this provider's phone number to contact. My card was given to the patient Status at Discharge Cognitive/behavioral status at discharge: Stable Time Spent with Patient Time attestation: Total time spent providing and/or coordinating discharge services:38 minutes Time spent: Greater than 30 minutes Exam Narrative: AF 97.1 129/76 72 18 98% ra Gen - NARD sitting up in chair Chest - few inspiratory rhonchi, nml RR CV - RRR S1/S2; Tele showing occasional PVCs Abd - Soft, NT/ND, Positive BS Ext - No pedal edema Neuro - Alert and oriented. Focal right upper extremity weakness. Psych - Nml mood and affect Skin - Warm and dry DS: Data Data Completed and Pending Labs on day of discharge: Labs from last 24 hours 03/01/21 03/01/21 03/01/21 11:34 07:36 06:37 WBC RBC Hgb Hct MCV MCH MCHC RDW Plt Count MPV Sodium Potassium Chloride Carbon Dioxide Anion Gap BUN Creatinine Estim Creat Clear Calc Estimated GFR Glucose POC Capillary Glucose 148 H 156 H Hemoglobin A1c Calcium Vitamin B12 Folate TSH (Reflex) Free T4 Total T3 1.09 03/01/21 03/01/21 03/01/21 06:37 06:37 06:37 WBC RBC Hgb Hct MCV MCH MCHC RD
== END 2021-03-01 16:30 | disposition home or self-care (01) | DRG 101 ==
LOC: ANHED 23:38 → ANH3MEDSUR 02-28 02:20
PROVIDERS: Admitting Provider Internal Medicine; Emergency Provider Emergency Medicine; Visit Provider Internal Medicine
DX: R56.9 Unspecified convulsions (principal); E11.43 Type 2 diabetes mellitus with diabetic autonomic (poly)neuropathy; J43.9 Emphysema, unspecified; F17.210 Nicotine dependence, cigarettes, uncomplicated; F10.20 Alcohol dependence, uncomplicated; Y90.2 Blood alcohol level of 40-59 mg/100 ml; I10 Essential (primary) hypertension; E05.90 Thyrotoxicosis, unspecified without thyrotoxic crisis or storm; G47.00 Insomnia, unspecified; Z79.899 Other long term (current) drug therapy; Z86.73 Personal history of transient ischemic attack (TIA), and cerebral infarction without residual deficits
CPT/HCPCS: 36415; 70450; 70553; 80048; 80053; 80307; 81001; 82607; 82746; 82948; 83036; 84100; 84439; 84443; 84480; 85025; 85027; 93005; 93306; 93880; 94640; 95816; 99285; A9270; A9577; J1650; J1815; J1953

== ENCOUNTER 2021-06-06 11:00 | Outpatient (RCR) | payer MEDICARE, MEDICAID, SELFPAY ==
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
--- NOTE | 2021-05-04 10:55 | PCPTNOTE ---
The patient was cancelled for today's appt. The patient will be seeing OT instead of PT due to complexity of dx being more appropriate for OT. All PT visits to be cancelled and pt to continue with OT for same dx.
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
--- NOTE | 2021-05-16 09:53 | PCOTNOTE ---
Patient called & cancelled scheduled appointment this date due to not feeling well.
--- NOTE | 2021-05-18 11:45 | PCOTNOTE ---
Patient called & cancelled scheduled appointment this date due to not feeling well.
--- NOTE | 2021-05-28 11:35 | PCOTNOTE ---
Patient did not show or call to cancel scheduled appointment this AM. Called patient's phone number in our system and the voicemail said Lavern ; did not leave message. Late note for 05/25 - Patient did not show or call to cancel scheduled appointment.
--- NOTE | 2021-05-28 11:45 | PCOTNOTE ---
Patient called back and stated that he forgot about today's appointment and that he will be at Friday's appointment.
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
--- NOTE | 2021-06-08 11:26 | PCOTNOTE ---
OCCUPATIONAL THERAPY DISCHARGE NOTIFICATION 06/08/21 Patient:Philip Barron Date of :1955 Philip called today to cancel all of his remaining therapy appointments. He had a nerve conduction study done yesterday and his surgeon reports that he needs another surgery and to cancel therapy at this time. Patient?s initial visit was on 05/09/2021 and he had a total of 4 visits. The goals have been not met. Thank you for referring this patient to [facility]. Please review, sign, date and return this discharge summary KAI. I have been updated about the patient's current status and I agree with discharge from the above service at this time. Referring Physician Date Referring Provider: Tj Coughlin MD
== END 2021-06-08 12:44 | disposition home or self-care (01) ==
LOC: ANHOT 11:00
PROVIDERS: Visit Provider Psychiatry & Neurology Neurology
DX: R53.1 Weakness (principal)
CPT/HCPCS: 97110; 97112; 97162; 97166; L3806

== ENCOUNTER 2021-09-07 12:30 | Outpatient (RCR) | payer MEDICARE, MEDICAID, SELFPAY ==
--- NOTE | 2021-07-19 14:46 | OTOPEVAL ---
OCCUPATIONAL THERAPY INITIAL EVALUATION REPORT 07/19/21 Thank you for referring Philip Barron to [facility].? The patient is scheduled to be seen for therapy? 1-3x/week for 6 weeks. Please review, sign, date and return this plan of care KAI. I agree with and certify that the following plan of care is medically necessary. Referring Physician Date Attending Provider: Per Glez MD Referring Provider: Jessica Driscoll PA-C *OT Outpatient Evaluation Start: 07/19/21 13:36 Outpatient Past Medical History Past Medical History Source of Past Medical History Recalled from Previous Visit, Confirmed with Patient/Family Neurological History Hx Cerebrovascular Accident (CVA) Yes Hx Seizures Yes Cardiovascular History Hx Hypertension Yes Respiratory History Hx Asthma Yes Hx Chronic Obstructive Pulmonary Disease Yes (COPD) Hx Other Respiratory Disorders Yes: tobacco dependence Gastrointestinal History Hx Gastrointestinal Disorders No Significant History Genitourinary History Hx Genitourinary Disorders No Significant History Hematological History Hx Hematological Disorders No Significant History Endocrine History Hx Diabetes Yes: type 2 HEENT History Hx Glaucoma Yes Integumentary History Hx Skin Disorders No Significant History Reproductive History Hx Reproductive Disorders No Significant History Psychosocial History Hx Psychiatric Disorders No Significant History Pain History History of Any Previous or Ongoing No Significant History Instance of Pain Anesthesia History Hx Anesthesia Reactions No Significant History Other History Hx Other Medical Conditions Yes: Alcoholism Evaluation Information Problem Additional Evaluation Detail h/o radial nerve injury 09/10/20 07/12/21: Radial nerve exploration and decompression, radial tunnel release, cubital tunnel release, guyon canal release, carpal tunnel release, and pronator teres release Pain Assessment Timing of Pain Assessment Timing of Pain Assessment Assessment Pain Scale Pain Scale Used Numeric (1 - 10) Self Report Pain Assessment Right Arm(s) Reported Pain Level 0 Lowest Pain Intensity 0 Greatest Pain Intensity 0 Pain Score Pain Score 0: Self Report Upper Extremity Range of Motion Scapular/ Shoulder Range of Motion Right Shoulder Flexion - Active 100 Shoulder Extension - Active 60 Shoulder Abduction - Active 100 Shoulder Medial Rotation - Active Able to touch right hand to Query Text:Reach Behind the Back iliac
--- NOTE | 2021-08-14 11:29 | PCOTNOTE ---
Patient did not show up for scheduled appointment this date. Called patient and he did not answer. Voicemail box is full.
--- NOTE | 2021-08-16 11:41 | OTOPEVAL ---
OCCUPATIONAL THERAPY RE-EVALUATION AND POC UPDATE 08/16/21 Philip is making progress with functional flexibility of the right UE. He unfortunately continues to show no active wrist, finger, or thumb extension at this time. We have also submitted the paperwork for MANUEL splint for wrist extension. Continued skilled OT indicated for use of thermal modalities, CPM, ROM, strengthening, weight bearing, and electrical stimulation to facilitate optimal functional ROM and strength of the right UE. Thank you for referring [place] Barron to [facility].? The patient is scheduled to be seen for therapy? 2x/week for 4 weeks. Please review, sign, date and return this plan of care KAI. I agree with and certify that the following plan of care is medically necessary. Referring Physician Date Attending Provider: Per Glez MD Referring Provider: Jessica Driscoll PA-C *OT Outpatient Evaluation Start: 07/19/21 13:36 Evaluation Information Additional Evaluation Detail h/o radial nerve injury 09/10/20 07/12/21: Radial nerve exploration and decompression, radial tunnel release, cubital tunnel release, guyon canal release, carpal tunnel release, and pronator teres release of the right UE Subjective Information Patient has been working with Query Text:As Reported By Patient/ oupatient OT x4 weeks. He has Family attended 7 sessions total. OT has been focusing on improved flexibilty and ROM of the right UE. He reports that in the past 4 weeks his arm has become more flexibile and he has noticed a decrease in the swelling. Pain Assessment Timing of Pain Assessment Timing of Pain Assessment Re-assessment Pain Scale Pain Scale Used Numeric (1 - 10) Self Report Pain Assessment Right Arm(s) Reported Pain Level 0 Lowest Pain Intensity 0 Greatest Pain Intensity 0 Pain Score Pain Score 0: Self Report Upper Extremity Range of Motion Scapular/ Shoulder Range of Motion Right Shoulder Flexion - Active 120 Shoulder Extension - Active 60 Shoulder Abduction - Active 130 Shoulder Medial Rotation - Active Able to touch right hand to Query Text:Reach Behind the Back iliac crest. Shoulder Lateral Rotation - Active Able to touch right hand to Query Text:Reach Behind the Head top of head. Scapular/Shoulder Range of Motion Shoulder flexion improved from Comments 120* Shoulder abduction improved from 100* Shoulder ext, IR, and ER remained unchanged.
--- NOTE | 2021-08-21 08:47 | PCOTNOTE ---
Patient called & cancelled scheduled appointment this date due to having an allergic reaction to a shot he got yesterday.
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
--- NOTE | 2021-09-13 13:18 | PCOTNOTE ---
Patient did not show up for scheduled appointment (his re-evaluation) this date. Attempted to call the patient and there was no answer and his mailbox is full.
--- NOTE | 2021-10-17 11:39 | PCOTNOTE ---
This treatment is being continued on visit number [id number]. Please see documentation on both accounts to view progress. Completed interventions, outcomes, and problems have been marked as Inactive to facilitate the copying of the Care plan routine for recurring accounts.
== END 2021-10-17 11:28 | disposition home or self-care (01) ==
LOC: ANHOT 12:30
DX: S41.111D Laceration without foreign body of right upper arm, subsequent encounter (principal); S44.21XD Injury of radial nerve at upper arm level, right arm, subsequent encounter; G56.01 Carpal tunnel syndrome, right upper limb; G56.21 Lesion of ulnar nerve, right upper limb; M21.331 Wrist drop, right wrist
CPT/HCPCS: 97110; 97140; 97166; 97763; L3806

== ENCOUNTER 2021-11-16 11:00 | Outpatient (RCR) | payer MEDICARE, MEDICAID, SELFPAY ==
--- NOTE | 2021-10-17 11:39 | PCOTNOTE ---
The treatment documented on this account is a continuation of the treatment documented on visit number [id number]. Please see documentation on both accounts to view progress. The Plan of Care has been transitioned and updated within the new V#. I have addressed and agree with the discipline specific Problems, Interventions, and Goals for the current certification period. Completed interventions, outcomes, and problems have been marked as Inactive to facilitate the copying of the Care plan routine for recurring accounts.
--- NOTE | 2021-10-17 14:06 | OTOPEVAL ---
Addendum entered by KINA Brown/Sharmila, T 10/17/21 14:19: The patient is scheduled to be seen for therapy?2x/week for 4 weeks. Original Note: OCCUPATIONAL THERAPY RE-EVALUATION REPORT 10/17/21 Philip presents today after missing a month of therapy due to poor attendance and our clinic was not able to get a hold of him. Measurements today demonstrate slight improvements with active/passive forearm supination and passive wrist extension since his last re-evaluation on 08/16/21. He reports daily compliance with his MANUEL brace. Continued skilled OT indicated for use of thermal modalities for improved tissued extensibility, CPM, ROM, strengthening, weight bearing, electrical stimulation, splinting, and HEP education/progression to facilitate optimal functional ROM and strength of the right UE. Thank you for referring Philip Barron to [facility].? The patient is scheduled to be seen for therapy? ____x/week for ___ weeks. Please review, sign, date and return this plan of care AKI. I agree with and certify that the following plan of care is medically necessary. Referring Physician Date Attending Provider: Per Glez MD Referring Provider: Jessica Driscoll PA-C Additional Evaluation Detail h/o radial nerve injury 09/10/20 07/12/21: Radial nerve exploration and decompression, radial tunnel release, cubital tunnel release, guyon canal release, carpal tunnel release, and pronator teres release of the right UE Subjective Information Patient did not show for his Query Text:As Reported By Patient/ last re-evaluation, scheduled Family the week of 09/11/21. The last OT visit was on 09/07/21. We were unable to get a hold of him to reschedule. So unfortunately the last re- evaluation was completed . Patient reports that his arm feels more flexible, but continues to report no active wrist extension. He reports daily compliance with MANUEL brace daily and wears his custom orthotics. Pain Assessment Timing of Pain Assessment Timing of Pain Assessment Assessment Self Report Self Report Pain Level 0 Pain Score Pain Score 0: Self Report Upper Extremity Range of Motion Scapular/ Shoulder Range of Motion Right Shoulder Flexion - Active 125 Shoulder Extension - Active 70 Shoulder Abduction - Active 135 Shoulder Medial Rotation - Active Able to touch right hand to Query Text:Reach Behind the Back iliac crest. Shoulder Lateral Rotation - Active Able to touch right hand to Query Text:Reach Behind the Head
--- NOTE | 2021-10-17 16:12 | PTOPEVAL ---
PHYSICAL THERAPY INITIAL EVALUATION. Thank you for referring Philip Barron to [facility].? The patient is scheduled to be seen for therapy? 2x/week for 4 weeks. Please review, sign, date and return this plan of care KAI. I agree with and certify that the following plan of care is medically necessary. Referring Physician Date Attending Provider: PHYSICIAN NOT ON STAFF *PT Outpatient Evaluation Start: 10/17/21 Evaluation Information Diagnosis Weakness Subjective Information Pt states he is having no Query Text:As Reported By Patient/ difficulty getting around his Family home. Pt states he can walk fine and does not know why he is in therapy. He reports he is having surgery on 11/07/21 to remove calluses from his feet as he is diabetic. Pain Assessment Pain Score Pain Score 0: Self Report Lower Extremity Range of Motion General Lower Extremity Range of Motion WFL/Left,WFL/Right Lower Extremity Muscle Strength Testing Gross Lower Extremity Strength B LE grossly 4+/5 SLS: R < 1s, L < 1s Balance Assessment Tinetti Balance Assessment Tinetti Composite Score (Balance + Gait) Interpretation of Scores At risk for falls (19-24) 5 Time Sit to Stand Time in Seconds 19 5 Time Sit to Stand Comments without use of UEs. 1 loss of Query Text:Normative Data: If Greater balance requiring physical Than 15 Seconds, 74% Increase Risk for assist, restarted the test Recurrent Falls after Gait Assessment Gait Pattern Trendelenburg Gait Gait Pattern Observed Decreased Stride Length - Left ,Decreased Stride Length - Right Other Gait Observations Decreased gait speed, step length, and stride length. 2 Minute Walk Total Distance Walked (feet) 143 2 Minute Walk Gait Speed Score (feet/ 1.19 second) Number of Breaks Required 1 2 Minute Walk Test Comments Pt sat down after 1 lap and refused to go any further. 48s to complete 143 ft. Pt reports 10/10 pain in his B feet R>L and shortness of breath after 1 lap. PT Clinical Summary Philip is a 66 y/o male presents to therapy today with a diagnosis of weakness. He has been seen by occupational therapy previously and as still currently being treated for a radial nerve injury.
--- NOTE | 2021-10-26 13:21 | PCPTNOTE ---
Patient did not show up for scheduled appointment this date. Called and left voicemail about missed appointment. Reminded Pt of upcoming OT and PT appointments on Friday10/29/21 @ 11:00am and 12:00pm. This is Pt's first N/S.
--- NOTE | 2021-10-31 10:13 | PCPTNOTE ---
Patient called & cancelled scheduled appointment this date due to having an appointment to have blood drawn.
--- NOTE | 2021-11-16 10:46 | OTOPEVAL ---
OCCUPATIONAL THERAPY RE-EVALUATION REPORT AND D/C SUMMARY 11/16/21 Philip presents for OT re-evaluation after 6 treatment sessions since 10/17/21. Unfortunately there have only been minor improvements in ROM. Active ROM of the forearm remained unchanged. Passive supination improved by 5-10 degrees. No active wrist extension. Passive wrist extension improved by 5-10 degrees. He reports daily compliance with wearing his MANUEL brace (reports he wears in 1x/day). The patient would like to follow up with the MD before additional therapy is continued. At this time we are discharging from skilled therapy services with patient independent with all materials. Thank you for referring Philip Barron to [facility].? Please review, sign, date and return this D/C Summary KAI. I agree with and certify that the following plan of care is medically necessary. 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 He reports daily compliance with MANUEL brace and wears his custom orthotics. Pain Assessment Timing of Pain Assessment Timing of Pain Assessment Assessment Self Report Self Report Pain Level 0 Pain Score Pain Score 0: Self Report Upper Extremity Range of Motion Elbow/Forearm Range of Motion Right Elbow Flexion - Active 130 Elbow Extension - Active -30 Forearm Supination - Active 40 Forearm Supination - Passive 70 Elbow/Forearm Range of Motion Comments Flexion remained at 130* Extension decreased from -20* Active supination remained at 40* Passive supination improved from 65* Wrist Range of Motion Right Wrist Range of Motion Comments The wrist rests in 55* of flexion with no active extension palpable. Passive extension improved from 30* to 35*. Philip's initial OT evaluation at this clinic was on 05/09/21 where his passive
--- NOTE | 2021-11-16 11:51 | PTOPEVAL ---
PHYSICAL THERAPY PROGRESS REPORT AND DISCHARGE SUMMARY. Thank you for referring Philip Barron to [facility] [place].? The patient is scheduled to be discharged from skilled physical therapy services at this time. Please review, sign, date and return this plan of care KAI. I agree with and certify that the following plan of care is medically necessary. Referring Physician Date Attending Provider: PHYSICIAN NOT ON STAFF Evaluation Information Diagnosis Weakness Subjective Information Pt reports no improvement in Query Text:As Reported By Patient/ his balance or strength since Family starting therapy. Pain Assessment Pain Score Pain Score 0: Self Report Lower Extremity Range of Motion General Lower Extremity Range of Motion WFL/Left,WFL/Right Lower Extremity Muscle Strength Testing Gross Lower Extremity Strength B LE grossly 4+/5 SLS: R < 2s, L < 2s Balance Assessment 5 Time Sit to Stand Time in Seconds 14 5 Time Sit to Stand Comments without use of UEs, initially 19s Gait Assessment Gait Pattern Assessment Gait Pattern Trendelenburg Gait Gait Pattern Observed Decreased Stride Length - Left ,Decreased Stride Length -Right 2 Minute Walk 2 Minute Walk Test Comments At initial visit, pt sat down after 1 lap and refused to go any further. 48s to complete 143 ft. He did this again today. Pt declines pain in his leg but reports shortness of breath after 1 lap. PT Clinical Summary Philip presents to therapy today for his progress report following 5 therapy visits. Today he demonstrates improvements in his 5xSTS score. He continues to demonstrate balance impairments, decreased endurance, and decreased functional mobility. He reports poor compliance with his home exercises program and states he should probably just be discharged from therapy. Philip will then be discharged from skilled physical therapy services at this time. He was educated on the benefits of continuing his exercise and staying active upon discharge. PT Services Indicated No Treatment Frequency and Dur
== END 2021-12-06 15:50 | disposition home or self-care (01) ==
LOC: ANHPT 11:00
DX: S41.111D Laceration without foreign body of right upper arm, subsequent encounter (principal); S44.21XD Injury of radial nerve at upper arm level, right arm, subsequent encounter; G56.01 Carpal tunnel syndrome, right upper limb; G56.21 Lesion of ulnar nerve, right upper limb; M21.331 Wrist drop, right wrist
CPT/HCPCS: 97110; 97161; 97530

== ENCOUNTER 2022-10-06 15:34 | Inpatient (IN) | payer MEDICARE, MEDICAID, SELFPAY ==
[2022-10-06] VITALS (7 sets, daily range): BP systolic 118–172; BP diastolic 55–90; PULSE 62–80; RESP 16–24; TEMP 36.1–36.6; O2SAT 97–100; BMI 30.6
--- NOTE | ~2022-10-06 | MR_ITS ---
EXAMINATION: MR brain/brain stem wo/w con DATE: 10/07/2022 14:58 INDICATION: Transient ischemic attack. TECHNIQUE: Magnetic resonance imaging (MRI) of the brain and brainstem was performed without and with 20 mL MultiHance intravenous contrast. COMPARISON: Head CT 10/06/2022, 02/27/21 FINDINGS: There are acute and subacute infarcts in the bilateral cerebellum and bilateral occipital l obes. There is acute infarct in the anterior aspect of right thalamus. There is an old infarct in rig ht frontal lobe. There are scattered areas of nonspecific increased T2-weighted signal intensity in t he cerebral white matter and artem. There is an old lacunar infarct in the artem. There is no intracran ial hemorrhage or abnormal mass lesion. There is an old infarct in the left basal ganglia and anterio r limb left internal capsule. The ventricles are normal in size. There is an old blowout fracture inv olving the medial wall and floor of left orbit. There are likely changes of right ocular lens replace ment surgery. The mastoid air cells are normal. IMPRESSION: 1. Acute and subacute infarcts involving the bilateral cerebellum and bilateral occipital lobes. 2. Acute infarct in right thalamus. 3. Old infarcts involving the right frontal lobe, left basal ganglia, anterior limb left internal cap josie, and artem. 4. Mild nonspecific cerebral white matter disease and pontine disease, which likely represents chroni c small vessel ischemic disease. Reviewed, dictated and finalized at location A. IMPRESSION: 1. Acute and subacute infarcts involving the bilateral cerebellum and bilateral occipital lobes. 2. Acute infarct in right thalamus. 3. Old infarcts involving the right frontal lobe, left basal ganglia, anterior limb left internal capsule, and artem. 4. Mild nonspecific cerebral white matter disease and pontine disease, which jarvis aguila represents chronic small vessel ischemic disease.
--- NOTE | ~2022-10-06 | MR_ITS ---
EXAMINATION: MRA brain wo con DATE: 10/07/2022 14:58 INDICATION: Transient ischemic episode TECHNIQUE: Magnetic resonance angiography (MRA) of the brain was performed without intravenous contrast by the 3 D [id number] technique. COMPARISON: CT angiogram of the brain performed 10/06/2022 FINDINGS: Evaluation is mildly limited by some motion blurring. There is loss of the normal flow related signal in the intracranial left vertebral artery which occurs between the takeoff of the left inferior cere bellar artery and the confluence with the right vertebral and basilar arteries. There appears be a se manan 70-90% stenosis in the distal right vertebral artery and proximal basilar artery. The mid to dis melissa basilar artery and bilateral P1 segments are patent. Flow related signal is seen within the inter nal carotid arteries. There is some stenosis along the bilateral carotid siphons. The position of est imation of the degree of stenosis however is significantly limited by motion but appears to be of mod erate severity (50-70% stenosis) at the proximal aspect of the right carotid siphon and otherwise <50 %. There are no aneurysms identified. Bilateral A1 segments are patent. Flow in the cerebral arteries is symmetric. Chronic lacunar infarcts at the bilateral ganglia and the periventricular anterior rig ht frontal lobe and a couple in the artem. There is increased signal along the gyri at the anterior as pect of the bilateral cerebellar hemispheres with additional small region of increased signal within the right cerebellar hemisphere suspicious for acute to subacute infarcts. IMPRESSION: 1. Scattered atherosclerotic disease with high-grade stenosis at the distal right vertebral and proxi mal basilar arteries and occlusion of the distal left vertebral artery. 2. Moderate 50-70% stenosis at the proximal aspect of the right carotid siphon with mild, <50% stenos is throughout the remainder of the bilateral carotid siphons. 3. Regions of edema in the anterior bilateral occipital lobes and at the right cerebellar hemisphere corresponding to acute infarcts. Correlate with separate brain MRI report for further detail 4. Chronic old lacunar infarcts at the artem, right frontal lobe periventricular white matter and bila teral basal ganglia. Reviewed, dictated and finalized at location B. IMPRESSION: 1. Scattered atherosclerotic disease with high-grade stenosis at the distal rig ht vertebral and proximal basilar arteries and occlusion of the distal left carrie tebral artery. 2. Moderate 50-70% stenosis at the proximal aspect of the right carotid siphon with mild, <50% stenosis throughout the remainder of the bilateral carotid siph ons. 3. Regions of edema in the anterior bilateral occipital lobes and at the right cerebellar hemisphere corresponding to acute infarcts. Correlate with separate brain MRI report for further detail 4. Chronic old lacunar infarcts at the artem, right frontal lobe periventricular white matter and bilateral basal ganglia.
--- NOTE | ~2022-10-06 | CT_ITS ---
CT ANGIOGRAM NECK AND HEAD History: CVA. Technique: Serial spiral axial images through the head and neck were obtained during arterial phase I V injection of 100 cc of Omnipaque 350. 3-D postprocessing and MIP images were then reconstructed on the remote workstation. Dose reduction technique was used on this scan by utilizing automated exposur e control and iterative reconstruction technique. The dose-length product (DLP) was 1252.50 mGy-cm. CTA neck findings: Bilateral vertebral arteries are patent. There is focal high-grade stenosis at th e distal right vertebral artery related to calcified plaque (series 5 image 180). There is also high- grade stenosis at the distal left internal carotid artery, again related to large calcified plaque (s eries 5 images 178-183). Bilateral common carotid, internal carotid, and external carotid arteries are patent. There are small calcified plaques at the proximal right internal carotid artery without stenosis. There is large marleen cified plaque at the distal left common carotid artery, with high-grade, approximately 95%, stenosis at the distal left common carotid artery. No distinct stenosis of the proximal left internal carotid artery. The proximal right internal carotid artery demonstrates 0% stenosis relative to the normal di stal artery lumen diameter. The proximal left internal carotid artery demonstrates 0% stenosis relati ve to the normal distal artery lumen diameter. CTA head findings: There is complete lack of opacification of the proximal basilar artery, consistent with embolus versus possibly severe stenosis. The mid and distal basilar artery are patent. Bilatera l posterior cerebral arteries are patent. Distal internal carotid arteries, middle cerebral arteries, and anterior cerebral arteries are patent. No large vessel occlusion. There is extensive atheroscler otic change of the cavernous portions of the bilateral internal carotid arteries, with areas of high- grade stenosis bilaterally in these regions. Impression: Focal area of lack of enhancement of the proximal basilar artery, compatible with either embolus or s evere stenosis. Mid and distal basilar artery and posterior cerebral arteries are patent. Focal high-grade stenoses at the distal vertebral arteries related to atherosclerotic calcification, as detailed above. Extensive calcified plaque with high-grade (95%) stenosis at the distal left common carotid artery. Extensive atherosclerotic calcification of the bilateral cavernous internal carotid arteries, with ar eas of high-grade stenosis bilaterally in these regions. Reviewed, dictated and finalized at location M. Impression: Focal area of lack of enhancement of the proximal basilar artery, compatible wi th either embolus or severe stenosis. Mid and distal basilar artery and posteri or cerebral arteries are patent. Focal high-grade stenoses at the distal vertebral arteries related to atheroscl erotic calcification, as detailed above. Extensive calcified plaque with high-grade (95%) stenosis at the distal left co mmon carotid artery. Extensive atherosclerotic calcification of the bilateral cavernous internal car otid arteries, with areas of high-grade stenosis bilaterally in these regions.
--- NOTE | ~2022-10-06 | MR_ITS ---
EXAMINATION: MRA neck wo/w con DATE: 10/07/2022 14:59 INDICATION: Transient ischemic attack. TECHNIQUE: Magnetic resonance angiography (MRA) of the neck was performed without and with 20 mL Mult iHance intravenous contrast. COMPARISON: Neck CTA 10/06/2022 FINDINGS: The vertebral arteries are codominant. There is severe stenosis of distal left vertebral artery. Ther e is mild stenosis of distal right vertebral artery. There is severe stenosis of proximal basilar art shahla. There is moderate stenosis of distal left common carotid artery. There is plaque in the proximal internal carotid arteries. There is 0% stenosis of the proximal right internal carotid artery relati ve to normal distal artery lumen diameter (NASCET criteria). There is 0% stenosis of the proximal le ft internal carotid artery relative to normal distal artery lumen diameter. There is moderate stenosi s of the intracranial internal carotid arteries. IMPRESSION: 1. Severe stenosis of distal left vertebral artery and proximal basilar artery. 2. Moderate stenosis of distal left common carotid artery. 3. 0% stenosis of the proximal internal carotid arteries relative to normal distal artery lumen diame ters (NASCET criteria). 4. Moderate stenosis of the intracranial internal carotid arteries. Reviewed, dictated and finalized at location A. IMPRESSION: 1. Severe stenosis of distal left vertebral artery and proximal basilar artery. 2. Moderate stenosis of distal left common carotid artery. 3. 0% stenosis of the proximal internal carotid arteries relative to normal dis melissa artery lumen diameters (NASCET criteria). 4. Moderate stenosis of the intracranial internal carotid arteries.
--- NOTE | ~2022-10-06 | CT_ITS ---
Non-contrast Head CT History: Altered mental status COMPARISON: 02/27/2021 Technique: Axial non-contrast imaging of the brain was performed. Dose reduction technique was used on this scan by utilizing automated exposure control and iterative reconstruction technique. The dose -length product (DLP) was 605.33 mGy-cm. Findings: There are hypodense areas involving the bilateral cerebellar hemispheres, right greater den n left, as well as the bilateral occipital lobes, suspicious for subacute versus possibly chronic inf arcts. Stable chronic lacunar infarct noted in the left basal ganglia. The ventricles and subarachnoi d spaces are normal in size. The calvarium appears normal. The visualized paranasal sinuses and mas toid air cells are clear. Impression: Extensive hypodense areas in the bilateral cerebellar hemispheres and bilateral occipital lobes, susp icious for subacute versus possibly chronic infarcts. MRI advised to better assess for restricted dif fusion which would indicate acute to subacute ischemia. There is stable chronic lacunar infarct in th e left basal ganglia. Reviewed, dictated and finalized at location M. Impression: Extensive hypodense areas in the bilateral cerebellar hemispheres and bilateral occipital lobes, suspicious for subacute versus possibly chronic infarcts. MRI advised to better assess for restricted diffusion which would indicate acute t o subacute ischemia. There is stable chronic lacunar infarct in the left basal ganglia.
--- NOTE | 2022-10-06 15:49 | ECG_ITS ---
Measurements Intervals [place] Rate: 68 P: -84 IA: 101 QRS: 30 QRSD: 95 T: -20 QT: 318 QTc: 340 Interpretive Statements ECTOPIC ATRIAL RHYTHM ATRIAL AND VENTRICULAR PREMATURE COMPLEXES NONSPECIFIC T-WAVE ABNORMALITY- INF/HIGH LAT LEADS BASELINE ARTIFACT- I, II, AVR, V4-V6 ABNORMAL ECG COMPARED TO ECG 02/27/2021 23:36:10 NO SIGNIFICANT CHANGES Electronically Signed On 10-06-2022 20:33:03 CDT by Willard Funk D.O.
[2022-10-06 16:10] LABS: Basophils Percent Auto 0.4 % (0.2-1.2); Eosinophils Absolute Auto 0.2 K/mm3 (0-0.3); Eosinophils Percent Auto 2.2 % (0-4.4); Hematocrit 40.1 % (42.0-52.0); Hemoglobin 13.1 g/dL (14.0-18.0); Immature Granulocyte Absolute 0.05 K/mm3 (0.00-0.031); Immature Granulocyte Percent A 0.7 % (0-0.5); Lymphocytes Absolute Auto 1.76 K/mm3 (0.9-3.2); Lymphocytes Percent Auto 25.8 % (18.3-44.2); Mean Corpuscular HGB Conc 32.7 g/dl (32-36); Mean Corpuscular Hemoglobin 29.4 pg (26-34); Mean Corpuscular Volume 89.9 fl (80-100); Mean Platelet Volume 10.3 fl (7.4-10.4); Monocytes Absolute Auto 0.5 K/mm3 (0.1-0.6); Monocytes Percent Auto 6.7 % (2.6-8.5); Neutrophils Absolute Auto 4.4 K/mm3 (1.3-6.7); Neutrophils Percent Auto 64.2 % (45.5-73.1); Platelet Count Result 228 k/mm3 (150-375); Red Blood Count 4.46 M/mm3 (4.6-6.20); Red Cell Distribution Width 13.7 % (11.5-14.5); White Blood Count 6.8 K/mm3 (4.5-10.0)
[2022-10-06 16:21] LABS: Alanine Aminotransferase 17 U/L (6-50); Albumin Level 4.2 g/dL (3.5-5.1); Alkaline Phosphatase 86 U/L (38-126); Anion Gap 6 mmol/L (8-16); Aspartate Amino Transferase 22 U/L (17-59); Bilirubin,Total 0.5 mg/dL (0.2-1.3); Blood Urea Nitrogen 7 mg/dL (9-20); Calcium 9.4 mg/dL (8.4-10.2); Carbon Dioxide 30 mmol/L (22-30); Chloride 102 mmol/L (98-107); Estimated CRCL calculation 91 ml/min; Estimated Glomerular Filt Rate > 60; Glucose 86 mg/dL (65-110); Potassium 3.8 mmol/L (3.4-5.0); Sodium 138 mmol/L (137-145)
[2022-10-06 17:08] LABS: Appearance Urine Clear (Clear); Bilirubin Urine Negative (Negative); Blood Urine Negative (Negative); Color Urine Yellow (Yellow); Glucose Urine UA Negative (Negative); Ketones Urine Negative (Negative); Leukocyte Esterase Ur Negative LEU/UL (Negative); Nitrate Urine Negative (Negative); Protein Urine Negative (Negative); Specific Grav Ur 1.007 (1.001-1.035)
[2022-10-06 17:12] LABS: Add Urine Microscopic? NO
[2022-10-06 17:33] LABS: Influenza A QL RT-PCR Negative (Negative); Influenza B QL RT-PCR Negative (Negative); RSV RNA, RT-PCR Negative (Negative); SARS-CoV-2 RNA PCR Negative
[2022-10-06 17:44] LABS: Magnesium 1.9 mg/dL (1.6-2.3)
--- NOTE | 2022-10-06 17:47 | ECG_ITS ---
Measurements Intervals [place] Rate: 68 P: -90 LA: 111 QRS: 52 QRSD: 92 T: 87 QT: 411 QTc: 439 Interpretive Statements ECTOPIC ATRIAL RHYTHM ATRIAL AND VENTRICULAR PREMATURE COMPLEXES BORDERLINE T WAVE ABNORMALITY- LAT/HIGH LAT LEADS BASELINE ARTIFACT- I, II, III, V1-V2 ABNORMAL ECG COMPARED TO ECG 10/06/2022 15:59:59 NO SIGNIFICANT CHANGES Electronically Signed On 10-06-2022 20:41:10 CDT by Willard Funk D.O.
[2022-10-06 18:21] LABS: Thyroid Stimulating Hormone Reflex 0.635 uIU/mL (0.465-4.68)
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
--- NOTE | 2022-10-06 20:22 | PM.IMHP ---
H&P: HPI History of Present Illness Date/Time: 10/06/22 20:22 Chief Complaint: Altered mental status Narrative: This is a 67-year-old male with past medical history significant for multiple strokes, former tobacco user, type diabetes mellitus, alcoholism, COPD/emphysema, hypertension. Patient was brought to the emergency room for evaluation after he started driving her a radically his scooter at [employer] and had garbled speech patient has no recollection of the events I am obtaining most of the history from daughter who is at bedside at the time of my visit patient had total resolution of symptoms according to daughter. Patient has been his usual state of health up until this point. Denies any vision changes, headaches, shortness of breath, cough, sputum production, fevers, rigors, chills, nausea, vomiting patient has right hand paralysis secondary to trauma. Preliminary workup was significant for CT angiogram of the brain was reported as: CTA head findings: There is complete lack of opacification of the proximal basilar artery, consistent with embolus versus possibly severe stenosis. The mid and distal basilar artery are patent. Bilateral posterior cerebral arteries are patent. Distal internal carotid arteries, middle cerebral arteries, and anterior cerebral arteries are patent. No large vessel occlusion. There is extensive atherosclerotic change of the cavernous portions of the bilateral internal carotid arteries, with areas of high-grade stenosis bilaterally in these regions. Impression: Focal area of lack of enhancement of the proximal basilar artery, compatible with either embolus or severe stenosis. Mid and distal basilar artery and posterior cerebral arteries are patent. Focal high-grade stenoses at the distal vertebral arteries related to atherosclerotic calcification, as detailed above. Extensive calcified plaque with high-grade (95%) stenosis at the distal left common carotid artery. Extensive atherosclerotic calcification of the bilateral cavernous internal carotid arteries, with areas of high-grade stenosis bilaterally in these regions. Review of Systems Review of Systems: ROS unobtainable: Yes unobtainable due to mental status (Patient has no recollection of events) [facility] Past Medical History Medical History Alcoholism COPD (chronic obstructive pulmonary disease) Diabetes mellitus with peripheral autonomic neuropathy HTN (hypertension) Insomnia Subclinical hyperthyroidism Family History Family History Sibling Diabetes mellitus Mother Hypertension Social History Social History Smoking packs per day: 1 Smoking cigarettes per day: 20.0 Years smoked: 50 Smoking pack-years: 50.00 Smoking status: Current every day smoker Tobacco type: cigarettes Second hand tobacco smoke exposure: Yes Alcohol intake: current Drinks per week: 6 Substance use: never Substance use type: does not use Living arrangements: alone Occupation/Education: unemployed Additional occupation/education comments: Disabled Gender identity (if verbalized by the patient): Male Spiritual care concerns: No Meds Home Medications and Allergies Home Medications Medication Instructions Recorded Confirmed Type albuterol sulfate 90 mcg/actuation See Rx Instructions .Route 05/03/20 10/06/22 History aerosol inhaler .COMPLEX PRN Shortness Of Breath sitagliptin phosphate 100 mg 100 mg PO DAILY 05/03/20 10/06/22 History tablet (Januvia) aspirin 81 mg chewable tablet 81 mg PO DAILY #30 tabs 03/01/21 10/06/22 Rx gabapentin 300 mg capsule 300 mg PO BID #60 caps 04/23/22 10/06/22 Rx amlodipine 5 mg tablet 5 mg PO DAILY 10/06/22 10/06/22 History budesonide-formoterol HFA 160 1 inh inhalation DAILY 10/06/22 10/06/22 History mcg-4.5 mcg/actuation
--- NOTE | 2022-10-06 21:00 | PC.NURSE ---
Patient sitting on edge of bed eating at this time. Patient was able to ambulate to toilet and urinate with 1 assist.
--- NOTE | 2022-10-06 22:15 | PC.NURSE ---
This patient, Philip Barron, was admitted to IMU Room 205-02. Patient/family oriented to hospital policies and general routines including ID bracelet, bed and alarms, visiting hours, pain management, procedures, bathroom and other care routines, personal items, smoking policy, room service/diet, and visiting hours. Information on how to activate the Rapid Response Team has been discussed. Patient/Family are encouraged to report perceived risks to care and to ask questions if they do not understand what they are told or what they should do.
[2022-10-07] VITALS (13 sets, daily range): BP systolic 110–141; BP diastolic 50–89; PULSE 55–69; RESP 15–20; TEMP 36.6–36.8; O2SAT 98–100
[2022-10-07] MEDS: ALBUTEROL SULFATE (*SP) AEROSOL 1 PUFF 2 PUFF INHALATION (05:01)
--- NOTE | 2022-10-07 09:18 | PM.IMPN ---
Progress Note: A&P Assessment and Plan (1) AMS (altered mental status): Code(s): R41.82 - Altered mental status, unspecified Status: Acute Assessment and Plan: Resolved Concern for TIA versus CVA (2) Brain TIA: Code(s): G45.9 - Transient cerebral ischemic attack, unspecified Status: Acute Assessment and Plan: Head and neck CTA showed severe stenosis of the proximal basilar artery, high-grade stenoses at the distal vertebral arteries, extensive plaque with high-grade 95% stenosis at the distal left common carotid artery, extensive atherosclerotic disease of the bilateral cavernous internal carotid arteries with high-grade stenosis bilaterally Neurology consult ordered and pending Continue neuro checks Will likely need neurosurgical consultation (3) Diabetes mellitus with peripheral autonomic neuropathy: Code(s): E11.43 - Type 2 diabetes mellitus with diabetic autonomic (poly)neuropathy Status: Acute Assessment and Plan: Accu-Cheks, sliding scale, check A1c, Januvia (4) COPD (chronic obstructive pulmonary disease): Code(s): J44.9 - Chronic obstructive pulmonary disease, unspecified Status: Acute Assessment and Plan: Not in exacerbation, stable (5) Alcoholism: Code(s): F10.20 - Alcohol dependence, uncomplicated Status: Acute Assessment and Plan: Check serum alcohol CIWA per protocol (6) Tobacco dependence: Code(s): F17.200 - Nicotine dependence, unspecified, uncomplicated Status: Acute Assessment and Plan: Nicotine patch as needed Plan DVT prophylaxis with SCDs GI prophylaxis not indicated Code status full code Subjective Date/time seen: 10/07/22 09:18 Interval history: 67-year-old male with past medical history of multiple strokes, diabetes, alcoholism is presenting after he was found driving his scooter radically a [employer] with dysarthria and amnesia of the event. Symptoms completely resolved upon arrival to the ER. No overnight events noted. No chest pain or shortness of breath. No nausea, vomiting or diarrhea. No fevers or chills. Review of Systems Review of Systems: 12 point review of systems was assessed and was negative except as noted in the HPI Exam Narrative: General: No acute distress, alert and oriented per baseline HEENT: Atraumatic, normocephalic, mucous membranes moist CV: Regular rate and rhythm, S1, S2 Lungs: Clear to auscultation bilaterally, no rales or crackles noted, no wheezes, good air entry Abdomen: Soft, nontender, nondistended Extremities: Normal to inspection Skin: No rashes noted, no lesions or wounds seen Psych: Euthymic, normal affect Neuro: Cranial nerves 2-12 grossly intact, strength +5/5 upper and lower extremities bilaterally Objective Data Vital Signs Vital Signs: Vital Signs - 24 hr 10/06/22 15:39 10/06/22 16:13 10/06/22 16:15 Temperature 97.8 F Pulse Rate 80 75 68 Respiratory Rate 16 19 23 H Blood Pressure 172/90 H 165/88 H Pulse Oximetry 100 100 Oxygen Delivery Room Air 10/06/22 16:17 10/06/22 22:23 10/06/22 22:39 Temperature 97 F L Pulse Rate 65 70 Respiratory Rate 24 H 20 Blood Pressure 164/86 H 169/89 H Pulse Oximetry 100 97 Oxygen Delivery Room Air 10/06/22 22:27 10/06/22 23:38 10/07/22 00:00 Temperature 97.8 F Pulse Rate 69 62 Respiratory Rate 20 Blood Pressure 118/55 L Pulse Oximetry 97 Oxygen Delivery Room Air 10/07/22 00:00 10/07/22 02:00 10/07/22 04:35 Temperature Pulse Rate 55 L 59 L Respiratory Rate Blood Pressure Pulse Oximetry Oxygen Delivery Room Air 10/07/22 04:00 10/07/22 04:00 10/07/22 05:52 Temperature 97.8 F Pulse Rate 61 55 L 65 Respiratory Rate 18 Blood Pressure 129/75 Pulse Oximetry 98 Oxygen Delivery 10/07/22 07:40 10/07/22 08:00 Temperature 97.8 F Pulse Rate 60 60 Respiratory Rate 18 Blo
[2022-10-07] MEDS: FLUTICASONE/SALMETEROL 115-21 MCG INHALER 1 PUFF 2 PUFF INHALATION ×2 (09:44→19:40)
[2022-10-07 09:54] LABS: Ethanol < 10 mg/dL (<10)
[2022-10-07] MEDS: amLODIPine BESYLATE 5 MG TABLET PO (10:16)
[2022-10-07] MEDS: GABAPENTIN 300 MG CAPSULE PO ×2 (10:16→18:25)
[2022-10-07] MEDS: lisinopriL 10 MG TABLET 30 MG PO (10:17)
[2022-10-07] MEDS: ASPIRIN 81 MG CHEWABLE TABLET PO (10:17)
--- NOTE | 2022-10-07 10:59 | WPDNEURCNPN ---
Assessment and Plan Assessment and plan (1) Acute stroke due to ischemia: Code(s): I63.9 - Cerebral infarction, unspecified Status: Acute (2) AMS (altered mental status): Code(s): R41.82 - Altered mental status, unspecified Status: Acute (3) Diabetes mellitus with peripheral autonomic neuropathy: Code(s): E11.43 - Type 2 diabetes mellitus with diabetic autonomic (poly)neuropathy Status: Acute (4) COPD (chronic obstructive pulmonary disease): Code(s): J44.9 - Chronic obstructive pulmonary disease, unspecified Status: Acute (5) HTN (hypertension): Code(s): I10 - Essential (primary) hypertension Status: Acute (6) Tobacco dependence: Code(s): F17.200 - Nicotine dependence, unspecified, uncomplicated Status: Acute (7) Seizure: Code(s): R56.9 - Unspecified convulsions Status: Acute Plan Philip Barron is a 67 year old male with a history of prior left sided lacunar stroke, seizures, COPD, alcohol use, chronic smoker, hypothyroidism, and diabetes who presented due to altered mental status. Found to have bilateral occipital and cerebellar infarcts (subacute vs chronic). CTA brain revealed possible thrombus vs high grade stenosis of the proximal basilar artery -- which is likely the etiology of his stroke. No intervention was recommended for patient as his symptoms resolved. - MRI brain w/o contrast - MRA brain and MRA neck - Start Aspirin 81mg daily - If no complete vessel occlusion, will also add Plavix x 3 months - Check LDL, will likely need statin - Surface echocardiogram - Resume home Keppra 500mg BID - Discussed importance of smoking cessation Consult date: 10/07/22 Reason for consult: Concern for stroke HPI: Philip Barron is a 67 year old male with a history of prior left sided lacunar stroke, seizures, COPD, alcohol use, chronic smoker, hypothyroidism, and diabetes who presented due to altered mental status. Patient was driving a motorized scooter erratically on the day of presetnation and appeared to be leaning to the right. This episode lasted about five minutes, and then patient was back to baseline. Family does report that patient seemed more confused over the past few weeks. His blood pressure on admission was in the 170s systolic. Labs were unrevealing. His CT head showed possible subacute vs chronic infarct in the bilateral cerebellar hemispheres and bilateral occipital lobes. CTA brain/carotid showed possible embolus or severe stenosis at the proximal basilar artery, high grade stenosis of the distal vertebral arteries, 95% stenosis of the distal left common carotid artery and high grade stenosis in bilateral cavernous ICAs. Case was discussed with [facility] stroke team who recommend against thrombectomy for this patient. They recommended MRA brain for more detailed view of stenosis. Review of Systems Constitutional: Constitutional: Reports no additional constitutional complaints Eyes: Eyes: Reports no additional eye complaints ENT: Reports system reviewed and no additional complaints, except as documented Cardiovascular: Cardiovascular: Reports no additional cardiovascular complaints Respiratory: Respiratory: Reports no additional respiratory complaints Gastrointestinal: Gastrointestinal: Reports no additional gastrointestinal complaints Genitourinary: Genitourinary: Reports no additional male genitourinary complaints Musculoskeletal: Musculoskeletal: Reports no additional musculoskeletal complaints Integumentary/Breasts: Skin/Breast: Reports system reviewed and no additional complaints, except as docu Neurologic: Reports as per HPI Psychiatric: Psychiatric: Reports confusion PMFSH Past Medical History Medical History Alcoholism COPD (chronic obstructive pulmonary disease) Diabetes mellitus with peripheral autonomic neuropathy HTN (hypertension) Insomnia Subclinical hyp
[2022-10-07 12:06] LABS: Glucose Point of Care 136 mg/dl (65-105)
[2022-10-07 13:32] LABS: Glucose Point of Care 163 mg/dl (65-105)
[2022-10-07 16:23] LABS: Glucose Point of Care 194 mg/dl (65-105)
[2022-10-07] MEDS: ATORVASTATIN 40 MG TABLET 80 MG PO (18:25)
[2022-10-07] MEDS: EMPAGLIFLOZIN 10 MG TABLET PO (18:26)
[2022-10-07] MEDS: CLOPIDOGREL BISULFATE 75 MG TABLET PO (18:26)
[2022-10-07] MEDS: SODIUM CHLORIDE 0.9% IV 500 ML IV CONT (18:27)
[2022-10-07 20:04] LABS: Glucose Point of Care 178 mg/dl (65-105)
[2022-10-08] VITALS (7 sets, daily range): BP systolic 128; BP diastolic 65; PULSE 55–73; RESP 12; TEMP 36.6; O2SAT 98
--- NOTE | 2022-10-08 | ECHO_ITS ---
Patient Info Name: Philip Barron Age: 67 years : 1955 Gender: Male Ht: 73 in Wt: 231 lbs BSA: 2.35 m2 HR: 57 bpm BP: 140 / 76 mmHg Heart Rhythm: Sinus Rhythm Technical Quality: Fair Exam Date: 10/08/2022 7:42 AM Exam Location: Echo Lab Patient Status: Inpatient Admit Date: 10/07/2022 Staff Ordering Physician: Kinza Mancuso DO Geographical Historian: Brenda Delong RDCS Attending Provider: Brenna Trejo MD Referring Physician: Jamee FORD; Exam Type: CA echo doppler w bubble study Study Info Indications - CVA Complete two-dimensional, color flow and Doppler transthoracic echocardiogram is performed with agitated saline. Contrast/Agitated Saline Contrast/Ag. Saline: Agitated Saline Amount: 30.00 ml Administered By: Brenda Delong RDCS Existing IV Access: Yes IV Access Condition: patent with no signs of infiltration Summary 1. Left ventricular chamber dimension is normal. 2. Left ventricular systolic function is normal, estimated at 65-70%. 3. There is moderately increased left ventricular wall thickness. 4. The left ventricular diastolic function is grade I diastolic dysfunction. 5. Right ventricular systolic function is normal. 6. Right atrial chamber dimension is mildly enlarged. 7. Intact interatrial septum visualized by color flow and agitated saline imaging. Negative bubble study. 8. There is mild tricuspid valve regurgitation. Left Ventricle Left ventricular chamber dimension is normal. Left ventricular systolic function is normal, estimated at 65-70%. There is moderately increased left ventricular wall thickness. The left ventricular diastolic function is grade I diastolic dysfunction. Right Ventricle Right ventricular chamber dimension is normal. Right ventricular systolic function is normal. Left Atria Left atrial chamber dimension is normal. Right Atria Right atrial chamber dimension is mildly enlarged. Atrial Septum Intact interatrial septum visualized by color flow and agitated saline imaging. Negative bubble study. Aortic Valve The aortic valve is probable trileaflet. There is no aortic valve stenosis. There is no aortic valve regurgitation. Pulmonic Valve The pulmonic valve is not well visualized. Mitral Valve The mitral valve has normal leaflets. There is no mitral valve stenosis. There is trace mitral valve regurgitation. The mitral valve annulus is mildly calcified. Tricuspid Valve There is no significant tricuspid valve stenosis. There is mild tricuspid valve regurgitation. Pericardium/Pleural The pericardium appears epicardial fat pad. There is no pericardial effusion. Inferior Vena Cava Normal inferior vena cava with >50% collapse upon inspiration consistent with normal right atrial pressure, 3 mmHg. Aorta The aortic root size at the sinus of Valsalva is normal. Left Ventricular Outflow Tract Name Value Normal LVOT 2D LVOT Diameter 2.2 cm LVOT Doppler LVOT Peak Gradient 1 mmHg LVOT Mean Gradient 1 mmHg
[2022-10-08 02:38] LABS: Barbiturate Screen Urine Negative (Negative); Benzodiazepines Screen Urine Negative (Negative)
[2022-10-08 02:40] LABS: Cannabinoid Screen Urine Negative (Negative); Cocaine Screen Urine Negative (Negative); Methadone Screen Urine Negative (Negative); Opiate Screen Urine Negative (Negative); Phencyclidine Screen Urine Negative (Negative)
[2022-10-08 02:43] LABS: Amphetamine Screen Urine Negative (Negative)
[2022-10-08 07:51] LABS: Glucose Point of Care 123 mg/dl (65-105)
[2022-10-08] MEDS: FLUTICASONE/SALMETEROL 115-21 MCG INHALER 1 PUFF 2 PUFF INHALATION (08:26)
[2022-10-08] MEDS: ATORVASTATIN 40 MG TABLET 80 MG PO (09:20)
[2022-10-08] MEDS: ASPIRIN 81 MG CHEWABLE TABLET PO (09:20)
[2022-10-08] MEDS: CLOPIDOGREL BISULFATE 75 MG TABLET PO (09:20)
[2022-10-08] MEDS: EMPAGLIFLOZIN 10 MG TABLET PO (09:20)
[2022-10-08] MEDS: GABAPENTIN 300 MG CAPSULE PO (09:20)
--- NOTE | 2022-10-08 12:02 | PM.IMPN ---
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, high-grade stenoses at the distal vertebral arteries, extensive plaque with high-grade 95% stenosis at the distal left common carotid artery, extensive atherosclerotic disease of the bilateral cavernous internal carotid arteries with high-grade stenosis bilaterally Neurology consult ordered and pending Continue neuro checks Neurosurgical consultation pending Stroke Neurology [facility] recommending aspirin 81 mg, Plavix 75 mg, Lipitor 80 mg, Jardiance 10 mg and to keep blood pressure systolic 130-150, diastolic 70-90 with neuro checks q.4 hours while inpatient, NIHSS qshift (3) Diabetes mellitus with peripheral autonomic neuropathy: Code(s): E11.43 - Type 2 diabetes mellitus with diabetic autonomic (poly)neuropathy Status: Acute Assessment and Plan: Accu-Cheks, sliding scale, check A1c, Januvia (4) COPD (chronic obstructive pulmonary disease): Code(s): J44.9 - Chronic obstructive pulmonary disease, unspecified Status: Acute Assessment and Plan: Not in exacerbation, stable (5) Alcoholism: Code(s): F10.20 - Alcohol dependence, uncomplicated Status: Acute Assessment and Plan: Check serum alcohol CIWA per protocol (6) Tobacco dependence: Code(s): F17.200 - Nicotine dependence, unspecified, uncomplicated Status: Acute Assessment and Plan: Nicotine patch as needed Plan DVT prophylaxis with SCDs GI prophylaxis not indicated Code status full code Subjective Date/time seen: 10/08/22 12:02 Interval history: 67-year-old male with past medical history of multiple strokes, diabetes, alcoholism is presenting after he was found driving his scooter radically a [employer] with dysarthria and amnesia of the event. Symptoms completely resolved upon arrival to the ER. No overnight events noted. No chest pain or shortness of breath. No nausea, vomiting or diarrhea. No fevers or chills. Exam Narrative: General: No acute distress, alert and oriented per baseline HEENT: Atraumatic, normocephalic, mucous membranes moist CV: Regular rate and rhythm, S1, S2 Lungs: Clear to auscultation bilaterally, no rales or crackles noted, no wheezes, good air entry Abdomen: Soft, nontender, nondistended Extremities: Normal to inspection Skin: No rashes noted, no lesions or wounds seen Psych: Euthymic, normal affect Neuro: Cranial nerves 2-12 grossly intact, strength +5/5 upper and lower extremities bilaterally Objective Data Vital Signs Vital Signs: Vital Signs - 24 hr 10/07/22 16:00 10/07/22 16:00 10/07/22 18:08 Temperature 97.8 F Pulse Rate 63 63 Respiratory Rate 20 Blood Pressure 110/50 L 121/71 Pulse Oximetry 100 Oxygen Delivery 10/07/22 19:40 10/07/22 20:00 10/07/22 20:00 Temperature Pulse Rate 69 63 Respiratory Rate 15 Blood Pressure Pulse Oximetry Oxygen Delivery Room Air 10/07/22 23:54 10/08/22 00:00 10/08/22 04:00 Temperature 98.2 F Pulse Rate 68 56 L 57 L Respiratory Rate 20 Blood Pressure 140/76 Pulse Oximetry 99 Oxygen Delivery 10/08/22 05:51 10/08/22 07:55 Temperature 97.9 F Pulse Rate 57 L Respiratory Rate 12 Blood Pressure 128/65 Pulse Oximetry 98 98 Oxygen Delivery Room Air Intake/Output Intake/Output: Intake & Output 10/05/22 10/06/22 10/07/22 10/08/22 22:59 23:59 23:59 23:59 Intake Total 1080 390 Output Total 950 600 Balance 130 -210 Meds/Results Medications: Active Medications Generic Name Dose Route Start Las
[2022-10-08 12:05] LABS: Glucose Point of Care 108 mg/dl (65-105)
--- NOTE | 2022-10-08 17:17 | PM.DS ---
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, high-grade stenoses at the distal vertebral arteries, extensive plaque with high-grade 95% stenosis at the distal left common carotid artery, extensive atherosclerotic disease of the bilateral cavernous internal carotid arteries with high-grade stenosis bilaterally Neurology consult ordered and pending Continue neuro checks Neurosurgical consultation pending Stroke Neurology [facility] recommending aspirin 81 mg, Plavix 75 mg, Lipitor 80 mg, Jardiance 10 mg and to keep blood pressure systolic 130-150, diastolic 70-90 with neuro checks q.4 hours while inpatient, NIHSS qshift (3) Diabetes mellitus with peripheral autonomic neuropathy: Code(s): E11.43 - Type 2 diabetes mellitus with diabetic autonomic (poly)neuropathy Status: Acute Assessment and Plan: Accu-Cheks, sliding scale, check A1c, Januvia (4) COPD (chronic obstructive pulmonary disease): Code(s): J44.9 - Chronic obstructive pulmonary disease, unspecified Status: Acute Assessment and Plan: Not in exacerbation, stable (5) Alcoholism: Code(s): F10.20 - Alcohol dependence, uncomplicated Status: Acute Assessment and Plan: Check serum alcohol CIWA per protocol (6) Tobacco dependence: Code(s): F17.200 - Nicotine dependence, unspecified, uncomplicated Status: Acute Assessment and Plan: Nicotine patch as needed Plan DVT prophylaxis with SCDs GI prophylaxis not indicated Code status full code DS: Summary Hospital Course Hospital Course: 67-year-old male with past medical history significant for multiple strokes, tobacco abuse, diabetes, COPD and emphysema presented with mental status found to have acute CVA. MRI, head and neck CTA ordered and showed multiple high-grade stenotic lesions throughout the brain. Stroke Neurology team at [facility] was consulted and recommended aspirin 81 mg, Plavix 75 mg, Lipitor 80 mg, Jardiance 10 mg and follow-up outpatient. All of patient's symptoms resolved. He was discharged in stable condition with close outpatient follow-up by Neurology. See above for details. Time Spent with Patient Time attestation: Total time spent providing and/or coordinating discharge services: Exam Narrative: General: No acute distress, alert and oriented per baseline HEENT: Atraumatic, normocephalic, mucous membranes moist CV: Regular rate and rhythm, S1, S2 Lungs: Clear to auscultation bilaterally, no rales or crackles noted, no wheezes, good air entry Abdomen: Soft, nontender, nondistended Extremities: Normal to inspection Skin: No rashes noted, no lesions or wounds seen Psych: Euthymic, normal affect Neuro: Cranial nerves 2-12 grossly intact, strength +5/5 upper and lower extremities bilaterally DS: Data Data Completed and Pending Labs on day of discharge: Labs from last 24 hours 10/08/22 10/08/22 10/08/22 11:43 07:34 02:14 POC Capillary Glucose 108 H 123 H Urine Opiates Screen Negative Urine Methadone Screen Negative Ur Barbiturates Screen Negative Ur Phencyclidine Scrn Negative Ur Amphetamine Screen Negative U Benzodiazepines Scrn Negative Urine Cocaine Screen Negative U Cannabinoids Screen Negative 10/07/22 19:49 POC Capillary Glucose 178 H Urine Opiates Screen Urine Methadone Screen Ur Barbiturates Screen Ur Phencyclidine Scrn Ur Amphetamine Screen U Benzodiazepines Scrn Urine Cocaine Screen U Cannabinoi
== END 2022-10-08 18:03 | disposition home or self-care (01) | DRG 69 ==
LOC: ANHED 20:06 → ANHIMU 21:07
PROVIDERS: Emergency Medicine; Admitting Provider Internal Medicine; Emergency Provider Emergency Medicine; PCP Nurse Practitioner Family; Visit Provider Student in an Organized Health Care Education/Training Program
DX: G45.9 Transient cerebral ischemic attack, unspecified (principal); E11.43 Type 2 diabetes mellitus with diabetic autonomic (poly)neuropathy; F10.20 Alcohol dependence, uncomplicated; F17.210 Nicotine dependence, cigarettes, uncomplicated; R47.1 Dysarthria and anarthria; J43.9 Emphysema, unspecified; Z79.82 Long term (current) use of aspirin; Z79.899 Other long term (current) drug therapy; Z20.822 Contact with and (suspected) exposure to COVID-19
CPT/HCPCS: 36415; 70450; 70496; 70498; 70544; 70549; 70553; 80053; 80307; 81003; 82948; 83735; 84443; 85025; 87637; 93005; 93306; 94640; 94762; 96360; 96375; 99285; A9270; A9577; G0378; J7040; Q9967

== ENCOUNTER 2023-09-03 12:48 | Emergency (ER) | payer OTHER, SELFPAY ==
[2023-09-03] VITALS (7 sets, daily range): BP systolic 135–141; BP diastolic 74–89; PULSE 72–75; RESP 14–18; TEMP 36.7–36.8; O2SAT 99–100
--- NOTE | 2023-09-03 13:39 | ED.LOWEXIN ---
HPI - Extremity Injury (Lower) General Chief Complaint: Extremity Injury, Lower Stated Complaint: diabetic, foot pain Time Seen by Provider: 09/03/23 13:16 Source: patient and family Mode of arrival: ambulatory Limitations: no limitations History of Present Illness HPI Narrative: This is a 68 year old male that presents to the ER for foot pain. Ongoing over the last several months. Reports history of neuropathy due to diabetes. 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 Denies fever, erythema or edema. Related Data Home Medications Medication Instructions Recorded Confirmed albuterol sulfate 90 mcg/actuation See Rx Instructions .Route 05/03/20 10/06/22 aerosol inhaler .COMPLEX PRN Shortness Of Breath amlodipine 5 mg tablet 5 mg PO DAILY 10/06/22 10/06/22 budesonide-formoterol HFA 160 1 inh inhalation DAILY 10/06/22 10/06/22 mcg-4.5 mcg/actuation aerosol inhaler (Symbicort) lisinopril 30 mg tablet 30 mg PO DAILY 10/06/22 10/06/22 Allergies Allergy/AdvReac Type Severity Reaction Status Date / Time No Known Allergies Allergy Verified 12/19/22 13:06 Review of Systems Review of Systems: CONSTITUTIONAL: Denies fever SKIN: Denies rash All systems reviewed & are unremarkable except as noted in HPI and below PMFSH Past Medical History Medical History Alcoholism COPD (chronic obstructive pulmonary disease) Diabetes mellitus with peripheral autonomic neuropathy HTN (hypertension) Insomnia Subclinical hyperthyroidism Family History Family History Sibling Diabetes mellitus Mother Hypertension Social History Social History Smoking packs per day: 2 Smoking cigarettes per day: 40.0 Years smoked: 50 Smoking pack-years: 100.00 Smoking status: Current every day smoker Tobacco type: cigarettes Second hand tobacco smoke exposure: Yes Alcohol intake: current Drinks per week: 6 Substance use: never Substance use type: does not use Lack of Transportation: No Lack of Food: Often True Current Housing: I Have Housing Concerned About Future Housing: No Difficulty Paying Gas/Electric Bills: No Difficulty Paying for Meds: YES Currently Unemployed: YES Education: High School Diploma/GED Difficulty w/ Childcare or Family Care: No Living arrangements: alone Occupation/Education: unemployed Additional occupation/education comments: Disabled Gender identity (if verbalized by the patient): Male Spiritual care concerns: No Exam Narrative: GENERAL: Well-appearing, well-nourished, and in no acute distress. HEAD: Normocephalic, atraumatic. EYES: EOMI. CHEST: No respiratory distress. HEART: Regular rate EXTREMITIES: Normal range of motion. No erythema or edema. Toenails are overgrown and very thick. No wounds noted SKIN: Warm, dry, no rash. NEURO: No focal deficits. Alert and oriented x3. PSYCH: Normal mood and affect Course Course Emergency Course: Patient and family agree with plan of care Vital Signs Vital signs: Vital Signs Blood Pressure 141/89 H 09/03/23 12:54 Temperature 98.2 F 09/03/23 13:46 Pulse Rate 72 09/03/23 13:46 Respiratory Rate 18 09/03/23 13:46 Blood Pressure 136/74 09/03/23 13:46 Pulse Oximetry 99 09/03/23 13:46 Oxygen Delivery Room Air 09/03/23 13:01 MDM - Extremity Injury (Lower) MDM Narrative Medical decision making narrative: Patient presents to the emergency department for overgrown toenail. Reporting they were having trouble getting him in to see a base filler operator due to his insurance. Patient is afebrile and nontoxic appearing. There are no wounds or evidence of infection on his exam. He does already take gabapentin for his diabetic neuropathy. I was able to find provid
== END 2023-09-03 14:06 | disposition home or self-care (01) ==
LOC: ANHED 14:02
PROVIDERS: Emergency Provider Physician Assistant; PCP Nurse Practitioner Family
DX: L60.8 Other nail disorders (principal); G62.9 Polyneuropathy, unspecified; J44.9 Chronic obstructive pulmonary disease, unspecified; E11.9 Type 2 diabetes mellitus without complications; I10 Essential (primary) hypertension; F17.210 Nicotine dependence, cigarettes, uncomplicated
CPT/HCPCS: 99281

== ENCOUNTER 2024-09-07 14:52 | Observation (INO) | payer OTHER, SELFPAY ==
[2024-09-07] VITALS (11 sets, daily range): BP systolic 145–192; BP diastolic 80–155; PULSE 78–96; RESP 16–31; TEMP 36.6–36.7; O2SAT 94–100
--- NOTE | ~2024-09-07 | XR_ITS ---
CHEST RADIOGRAPH, PA AND LATERAL CLINICAL HISTORY: sob . COMPARISON: 05/02/2020 TECHNIQUE: PA and lateral views of the chest. FINDINGS The cardiomediastinal silhouette is unremarkable. The lungs are clear. Visualized osseous structures and soft tissues are unremarkable. IMPRESSION: No focal infiltrate or effusion. Reviewed, dictated and finalized at location A. GLASS TECHNICIAN
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
--- OUTSIDE RECORDS SUMMARY | 2024-09-07 15:33 | XMS_ITS | Clinical Summary ---
Author Organization [facility] Medical Office Building A Address [address] [place] [address] Care Team Providers Care Therapist Phys Name Role Phone Cecile Terrell NP Primary Care Provider [phone] Allergies No known active allergies Medications albuterol HFA (PROVENTIL HFA,VENTOLIN HFA,PROAIR HFA) 90 mcg/actuation inhaler Inhale 2 puffs every 6 (six) hours as needed 7 Active beclomethasone dipropionate (Qvar RediHaler) 40 mcg/actuation inhaler INL 2 PFS PO BID 9 Active budesonide-formot Lesia (SYMBICORT) 80-4.5 mcg/actuation inhaler Inhale 2 puffs 2 (two) times a day Active gabapentin (NEURONTIN) 300 mg capsule Take 300 mg by mouth 2 (two) times a day Active hydroCHLOROthiazi de (HYDRODIURIL) 25 mg tablet Take 25 mg by mouth daily 8 Active lisinopriL (PRINIVIL,ZESTRIL ) 5 mg tablet Take 5 mg by mouth daily 9 Active simvastatin (ZOCOR) 40 mg tablet Take 40 mg by mouth nightly 8 Active Januvia 100 mg tablet TK 1 T PO QD 0 Active traMADoL (ULTRAM) 50 mg tablet TK 1 T PO Q 12 H PRN 8 Active Incruse Ellipta 62.5 mcg/actuation blister with device INL 1 PUFF PO QD 0 Active aspirin 81 mg enteric coated tablet Take 81 mg by mouth daily Active Active Problems Problem Noted Date Diagnosed Date Other fecal abnormalities 07/24/2020 Overview (07/24/2020): Added automatically from request for surgery [id number] Positive colorectal cancer s creening using DNA-based stool test 07/24/2020 Overview (07/24/2020): Added automatically from request for surgery [id number] PVD (peripheral vascular disease) (CMS/HCC) 02/2020 Assessment & Plan (03/13/2021 1:56 PM CDT): Patient has 1 block claudication but wants to remain conservative with his management. I have encouraged him to continue with walking, resting with claudication, and then continued walking. He will continue with aggressive secondary risk factor modification including smoking cessation attempts. I will plan to review his care on an annual or as-needed basis. Assessment & Plan (03/08/2020 10:13 AM CDT): Patient has not yet obtained his lower extremity CT angiogram to evaluate his claudicant like pain and nonhealing diabetic ulcers. This will be obtained and will contact him by phone if no change in therapy can be offered. Type 2 diabetes mellitus wit h diabetic peripheral angiopathy without gangrene, without long-term current use of insulin 11/03/2019 Essential hypertension 11/03/2019 Assessment & Plan (03/08/2020 10:14 AM CDT): Patient's blood pressure was again elevated today. It may be reasonable to consider substitution of a moderate dihydropyridine calcium channel shania for his lisinopril. I will leave that decision up to you. Mixed hyperlipidemia 11/03/2019 Bilateral carotid artery stenosis 11/03/2019 Assessment & Plan (03/13/2021 1:56 PM CDT): Patient remains asymptomatic with his known carotid disease. He will continue with aggressive secondary risk factor modification. Assessment & Plan (03/08/2020 10:13 AM CDT): With mild disease we will continue with aggressive secondary risk factor modification. I will relook at his lipid profile to make sure his target value of 50 mg/dL or less has been achieved. Other emphysema 11/03/2019 Shortness of breath 11/03/2019 Assessment & Plan (03/08/2020 10:15 AM CDT): The patient has not yet obtain proBNP value. We will obtain this along with metabolic panel prior to his CT angiogram. Smoker 11/03/2019 Assessment & Plan (03/08/2020 10:14 AM CDT): I again stressed the importance of smoking cessation. Surgical History Surgery Date Site/Laterality Comments COLONOSCOPY 08/22/2020 Medical History Medical History Date Comments Shortness of breath Type 2 diabetes mellitus (HCC) Hypertension COPD (chronic obstructive pulmonary disease) (HC C) Carotid artery disease (HCC) Hyperlipidemia Family History Medical History Relation Name Comments No Known Problems Brother No Known Problems Father No Known Problems Father's Brother No Known Problems Father's Sister No Known Problems Maternal Grandfather No Known Problems Maternal Grandmother No Known Problems Mother No Known Problems Mother's Brother No Known Problems Mother's Sister No Known Problems Paternal Grandfather No Known Problems Paternal Grandmother No Known Problems Sister Relation Name Status Comments Brother Father Father's Brother Father's Sister Maternal Grandfather Maternal Grandmother Mother Mother's Brother Mother's Sister Paternal Grandfather Paternal Grandmother Sister Social History Tobacco Use Types Packs/Day Years Used Date Smoking Tobacco: Every Day Cigarettes 0.5 40 Personal Safety Answer Date Recorded Getting School Help Needed Not on file 09/23 Sex and Gender Information Value Date Recorded Sex Assigned at Not on file Legal Sex Male 9:22 AM [employer] Gender Identity Not on file Sexual Orientation Not on file Obstetrics History Last Filed Vital Signs Vital Sign Reading Time Taken Comments Blood Pressure 114/70 03/13/2021 1:17 PM CDT Pulse 66 03/13/2021 1:17 PM CDT Temperature 36 C (96.8 F) 08/22/2020 2:57 PM [employer] Respiratory Rate 14 03/13/2021 1:17 PM CDT Oxygen Saturation 100% 08/22/2020 2:57 PM [employer] Inhaled Oxygen Concentration - - Weight 112.5 kg (248 lb) 04/03/2023 1:41 PM CDT Height 185.4 cm (6' 1 ) 04/03/2023 1:41 PM CDT Body Mass Index 32.72 04/03/2023 1:41 PM CDT Plan of Treatment Health Maintenance Due Date Last Done Comments Albumin Creatinine Ratio, Urine 1955 Depression Screening 1955 Fall Risk Assessment 1955 Hepatitis C Screening 1955 Prostate Cancer Screening-PSA 1955 Dilated Eye Exam 1955 Foot Exam 1955 Pneumococcal vaccine 65+ (1 of 2 - PCV) 1963 Hepatitis B Screening 1975 Zoster Vaccine (1 of 2) 2007 Abdominal Aortic Aneurysm (A AA) Screen 2022 04/04/2020 Well Visit 65+ 2022 Hemoglobin A1C 09/24/2022 03/27/2022, 10/31/2021 Lipid Panel 10/31/2022 10/31/2021, 04/04/2020 eGFR 03/27/2023 03/27/2022, 04/0 12/2021, 04/04/2020 Influenza Vaccine (#1) 2024 , 06/05/2019, 06/04/2019, Additional history exists DTaP/Tdap/Td Vaccine (3 - Td or Tdap) 2028 01/12/2018, 08/17/2017 Colon Cancer Screening-Colonoscopy 08/22/2030 08/22/2020 Colon Cancer Screening-CT Colonography Discontinued 08/22/2020 Colon Cancer Screening-DNA Stool Discontinued 08/22/19 Colon Cancer Screening-FIT Discontinued 08/22/2020 Colon Cancer Screening-Sigmoidoscopy Discontinued 08/22/2020 Procedures Procedure Name Priority Date/Time Associated Diagnosis Comments EGFR Routine 03/27/2022 12:52 PM CDT HEMOGLOBIN A1C Routine 03/27/2022 12:52 PM CDT LIPID PANEL Routine 10/31/2021 11:45 AM CDT COLONOSCOPY 08/22/2020 1:47 PM [employer] CTA ABDOMINAL AORTA AND BILATERAL ILIOFEMORAL RUNOFF Schedule Routine, Read Routine (OP Routine) 04/04/2020 4:17 PM CDT Claudication (CMS/HCC) from Last 3 Months or Most Recently Relevant to Health Maintenance Results * eGFR (03/27/2022 12:52 PM CDT) eGFR 77 mL/min/1. 73 m2 [facility]) Comment: Interpretive Data Reference Interval Normal >/= 90 mL/min/1.73m2 Mildly decreased* 60 - 89 mL/min/1.73m2 Mildly to moderately decreased 45 - 59 mL/min/1.73m2 Moderately to severely decreased 30 - 44 mL/min/1.73m2 Severely decreased 15 - 29 mL/min/1.73m2 Kidney Failure < 15 mL/min/1.73m2 *Relative to young adult level Estimated glomerular filtration rate is determined by the 2020 CKD-EPI equation recommended by the National Kidney Foundation (A Unifying Approach to GFR Estimation: Recommendations of the NKF-ASK Task Force on Reassessing the Inclusion of Race in Diagnosing Kidney Disease, JASN 2020). The CKD-EPI equation should not be used for patients with unstable renal function and has not been validated in children and those over 70. Current interpretive data was last reviewed 2021. Blood 03/27/2022 12:5 2 PM CDT 03/27/2022 3:20 PM CDT us Jt Banegas MD LAB BLOOD ORDERABL ES Final Result [facility] ([place]) [address] [facility] [place] [address] * (ABNORMAL) Hemoglobin A1c (03/27/2022 12:52 PM CDT) Hgb A1C 6.6(H) 4.0 - 5.6 % [facility] Estimated Average Glucose 143 mg/dL [facility] Comment: The ADA recommends reporting an estimated Average Glucose (eAG) with all Hemoglobin A1c results using the equation derived from a study of 507 normal and diabetic adults. Minority populations were underrepresented and children were not included. (Diabetes Care 31:4482-9994, 2008). The eAG is not equivalent to a fasting glucose. Blood 03/27/2022 12:5 2 PM CDT 03/27/2022 3:20 PM CDT Jt Banegas MD LAB BLOOD ORDERABL ES Final Result [facility] Department [place] [address] * Lipid panel (10/31/2021 11:45 AM CDT) Cholesterol 159 30 - 199 mg/dL [facility]) Comment: Interpretive Data Ages < or = 19 years Acceptable: <170 mg/dL Borderline high: 170-199 mg/dL High: >or= 200 mg/dL Ages > or = 20 years Desirable: <200 mg/dL Borderline high: 200-239 mg/dL High: >or= 240 mg/dL Literature References: 1. Expert Panel on Integrated Guidelines for Cardiovascular Health and Risk Reduction in Children and Adolescents. Pediatrics 2011;128:S213 2. NCEP Expert Panel. Circulation 2004;110:227 Current Interpretive Data was last revised on 2018. Triglycerides 85 <=149 mg/dL [facility]) Comment: Interpretive Data Ages < or = 9 years Acceptable: <75 mg/dL Borderline high: 75-99 mg/dL High: >or= 100 mg/dL Ages 10 to 20 years Acceptable: <90 mg/dL Borderline high: 90-129 mg/dL High: >or= 130 mg/dL Ages > or = 20 years Desirable: <150 mg/dL Borderline high: 150-199 mg/dL High: 200-499 mg/dL Very high: >or= 499 mg/dL Literature References: 1. Expert Panel on Integrated Guidelines for Cardiovascular Health and Risk Reduction in Children and Adolescents. Pediatrics 2011;128:S213 2. NCEP Expert Panel. Circulation 2004;110:227 Current Interpretive Data was last revised on 2018. HDL 46 >=40 mg/dL [facility] ([place]) Comment: Interpretive Data Ages < or = 19 years Acceptable: >45 mg/dL Borderline low: 40-45 mg/dL Low: <40 mg/dL Ages > or = 20 years Desirable: >or= 60 mg/dL Low: <40 mg/dL Literature References: 1. Expert Panel on Integrated Guidelines for Cardiovascular Health and Risk Reduction in Children and Adolescents. Pediatrics 2011;128:S213 2. NCEP Expert Panel. Circulation 2004;110:227 Current Interpretive Data was last revised on 2018. LDL, calculated 96 <=129 mg/dL [facility] ([place]) Comment: Interpretive Data Ages < or = 19 years Acceptable: <110 mg/dL Borderline high: 110-129 mg/dL High: >or= 130 mg/dL Ages > or = 20 years Optimal: <100 mg/dL Near optimal: 100-129 mg/dL Borderline high: 130-159 mg/dL High: >160 mg/dL Literature References: 1. Expert Panel on Integrated Guidelines for Cardiovascular Health and Risk Reduction in Children and Adolescents. Pediatrics 2011;128:S213 2. NCEP Expert Panel. Circulation 2004;110:227 Current Interpretive Data was last revised on 2018. Non-HDL Cholesterol 113 mg/dL [facility] ([place]) Comment: Interpretive Data Ages < or = 19 years Acceptable: <120 mg/dL Borderline high: 120-144 mg/dL High: >145 mg/dL Ages > or = 20 years When triglycerides are >200 mg/dL, Non-HDL cholesterol is a secondary target of therapy with treatment goals that are 30 mg/dL greater than the LDL cholesterol target. Literature References: 1. Expert Panel on Integrated Guidelines for Cardiovascular Health and Risk Reduction in Children and Adolescents. Pediatrics 2011;128:S213 2. NCEP Expert Panel. Circulation 2004;110:227 Current Interpretive Data was last revised on 2018. Chol/HDL ratio 3 [facility] ([place]) Blood 10/31/2021 11:4 5 AM CDT 10/31/2021 12:09 PM CDT Olseun Banegas MD LAB BLOOD ORDERABL ES Final Result [facility] [place] [address] Department of Laboratories [place], [place] [id number] * COLONOSCOPY (08/22/2020 1:47 PM [employer]ER) Anatomical Region Laterality Modality Other Narrative Procedure Note Ignacio Landers MD - 08/22/2020 1:[address] [facility] Patient Name: Philip Barron Procedure Date: 08/22/2020 1:47 PM Date of : 1955 Admit Type: Outpatient Age: 65 Gender: Male Attending MD: Ignacio Landers M.D. Room: [facility] ENDOSCOPY ROOM 1 Note Status: Finalized Patient Profile: This is a 65 year old male. No family history ofcolon cancer. Noted recently positive Cologuard test. Procedure: Colonoscopy Indications: Screening for colorectal malignant neoplasm, This is the patient's first colonoscopy Referring MD: Vineet Conklin, ANP Providers: Ignacio Landers M.D. Impression: - Diverticulosis in the sigmoid colon and in the descending colon. - One 5 mm polyp in the sigmoid colon, removed witha jumbo cold forceps. Resected and retrieved. - Internal hemorrhoids. Recommendation: - Await pathology results. - Repeat colonoscopy in 3 years for screeningpurposes. - Continue present medications. Medicines: Monitored Anesthesia Care Complications: No immediate complications. Estimated Blood Loss: Estimated blood loss: none. Procedure: Pre-Anesthesia Assessment: - Prior to the procedure, a History and Physical was performed, and patient medications and allergieswere reviewed. The patient's tolerance of previous anesthesia was also reviewed. The risks and benefitsof the procedure and the sedation options and riskswere discussed with the patient. All questions were answered, and informed consent was obtained. Prior Anticoagulants: The patient has taken no previous anticoagulant or antiplatelet agents. ASA Grade Assessment: II - A patient with mild systemicdisease. After reviewing the risks and benefits, the patientwas deemed in satisfactory condition to undergo the procedure. The benefits, risks and alternatives of theprocedure and sedation were discussed and informed consent was obtained. All questions were answered. Please referto the signed informed consent document in the medical record. The scope was passed under direct vision.The Pediatric Colonoscope [id number]-H190L [id number] was introduced through the anus and advanced to the the cecum, identified by appendiceal orifice andileocecal valve. The bowel preparation used was Miralax. The bowel preparation used was bisacodyl tablets. Bowel prep was administered using a split dose. Thequality of the bowel preparation was good. Findings: The perianal and digital rectal examinations were normal. The cecum appeared normal. The ascending colon appeared normal. The transverse colon is unremarkable. Multiple small-mouthed diverticula were found in the sigmoid colonand descending colon. A 5 mm polyp was found in the sigmoid colon. The polyp was sessile.The polyp was removed with a jumbo cold forceps. Resection and retrieval were complete. Internal hemorrhoids were found during retroflexion. The hemorrhoids were small. Electronically signed by Ignacio Landers M.D. Ignacio Landers M.D. 08/22/2020 2:31:41 PM Number of Addenda: 0 Note Initiated On: 08/22/2020 1:47 PM Procedure Code(s): --- Professional --- 47905, Colonoscopy, flexible; with biopsy, single or multiple Diagnosis Code(s): --- Professional --- Z12.11, Encounter for screening for malignant neoplasm of colon K64.8, Other hemorrhoids D12.5, Benign neoplasm of sigmoid colon K57.30, Diverticulosis of large intestine without perforation orabscess without bleeding CPT copyright 2017 [employer]. All rights reserved. The codes documented in this report are preliminary and upon medicare sales representative reviewmay be revised to meet current compliance requirements. Recognized by the [employer] for promoting quality in endoscopy Ignacio Landers MD ENDOSCOPY PROCEDURES Final Result * CTA Abdominal Aorta And Bilateral Iliofemoral Runoff (04/04/2020 4:17 PM CDT) Anatomical Region Laterality Modality Body Bilateral Computed Tomogra phy 04/04/2020 4:19 PM CDT Impressions 04/04/2020 4:42 PM CDT 1. Right lower extremity: 1 cm moderate stenosis at the origin of the SFA. Diffuse atherosclerosis of the vessels in the leg with two-vessel runoff to the ankle consisting of a severely and diffusely diseased anterior tibial artery and a reconstituted peroneal artery. 2. Left lower extremity: Diffuse atherosclerosis of the vessels in the leg, slightly better than the right. Two-vessel runoff to the ankle consisting of a severely and diffusely diseased anterior tibial artery and a peroneal artery with multifocal severe stenoses proximally. 3. Small indeterminate pulmonary nodules at the lung bases. Recommend follow-up chest CT in 6-12 months to document stability. Electronically signed by: Jono Cortez M.D. Narrative 04/04/2020 4:42 PM CDT EXAMINATION: CTA ABDOMINAL AORTA AND BILATERAL ILIOFEMORAL RUNOFF ORDERING HEALTHCARE PROVIDER: GIL BREWSTER HISTORY: 65-year-old male with peripheral vascular disease presents with bilateral lower extremity claudication. COMPARISON: None available. TECHNIQUE: CT angiography of the abdomen, pelvis, and lower extremities was performed following the uneventful intravenous administration of 125 ml Optiray-350. Vascular 3D images were generated on a dedicated workstation and also reviewed. FINDINGS: VASCULAR FINDINGS: Abdominal Aorta and Branches: Celiac axis: no significant stenosis SMA: no significant stenosis NIKHIL: A least moderate stenosis at the origin. Right renal vessels: 2 right renal arteries without significant stenosis Left renal vessels: 2 left renal arteries without significant stenosis Infrarenal aorta: Diffuse atherosclerotic calcification without significant stenosis or aneurysmal dilatation. Pelvic Vessels: R. Common iliac artery: no significant stenosis R. External iliac artery: no significant stenosis R. Internal iliac artery: no significant stenosis L. Common iliac artery: no significant stenosis L. External iliac artery: no significant stenosis L. Internal iliac artery: no significant stenosis Right Lower Extremity: R. Common femoral artery: no significant stenosis R. Profunda femoris artery: no significant stenosis R. Superficial femoral artery: Short segmental moderate narrowing of 1 cm at the origin. The remainder of the vessel is diffusely atherosclerotic without significant stenosis. R. Popliteal artery: No significant stenosis R. Anterior tibial artery: Diffusely and heavily calcified which limits sensitivity for evaluation of luminal patency. There is likely multifocal severe stenosis. R. Tibioperoneal trunk: Occluded. R. Posterior tibial artery: Diffusely calcified without definite internal flow, likely occluded. R. Peroneal artery: Reconstituted proximally and patent to the level of the ankle. R. Dorsalis pedis artery: Occluded proximally with distal reconstitution through collaterals. R. Plantar artery: Reconstituted approximately and appears patent. Left Lower Extremity: L. Common femoral artery: no significant stenosis L. Profunda femoris artery: no significant stenosis L. Superficial femoral artery: no significant stenosis L. Popliteal artery: no significant stenosis L. Anterior tibial artery: Occluded at the origin with proximal reconstitution. Multifocal severe stenoses are seen throughout the entire vessel. L. Tibioperoneal trunk: Severe stenosis throughout. L. Posterior tibial artery: Diffusely atherosclerotic without definite flow. L. Peroneal artery: Multifocal severe stenoses proximally, but patent to the ankle. L. Dorsalis pedis artery: Occluded proximally with reconstitution in the mid foot. L. Plantar artery: Reconstituted and appears patent. NON-VASCULAR FINDINGS: Patchy bibasilar opacities are present, likely atelectasis. There are small bilateral Bochdalek hernias. A 7 mm nodule is noted in the left lung base. Another 5 mm nodule in the right lower lobe adjacent to the major fissure also present. Liver, spleen, kidneys, adrenals, pancreas, gallbladder, visualized gastrointestinal tract including the appendix, and urinary bladder are normal on this arterial phase study. Prostate gland is within upper limits of normal in size. Morphology of bilateral seminal seminal vesicles is normal and symmetric. Colonic diverticulosis present without diverticulitis. Bone window images demonstrate no suspicious osseous lesions or acute fractures. Procedure Note Jono Cortez MD - 04/04/2020 EXAMINATION: CTA ABDOMINAL AORTA AND BILATERAL ILIOFEMORAL RUNOFF ORDERING HEALTHCARE PROVIDER: GIL BREWSTER HISTORY: 65-year-old male with peripheral vascular disease presents with bilateral lower extremity claudication. COMPARISON: None available. TECHNIQUE: CT angiography of the abdomen, pelvis, and lower extremities was performed following the uneventful intravenous administration of 125 ml Optiray-350. Vascular 3D images were generated on a dedicated workstation and also reviewed. FINDINGS: VASCULAR FINDINGS: Abdominal Aorta and Branches: Celiac axis: no significant stenosis SMA: no significant stenosis NIKHIL: A least moderate stenosis at the origin. Right renal vessels: 2 right renal arteries without significant stenosis Left renal vessels: 2 left renal arteries without significant stenosis Infrarenal aorta: Diffuse atherosclerotic calcification without significant stenosis or aneurysmal dilatation. Pelvic Vessels: R. Common iliac artery: no significant stenosis R. External iliac artery: no significant stenosis R. Internal iliac artery: no significant stenosis L. Common iliac artery: no significant stenosis L. External iliac artery: no significant stenosis L. Internal iliac artery: no significant stenosis Right Lower Extremity: R. Common femoral artery: no significant stenosis R. Profunda femoris artery: no significant stenosis R. Superficial femoral artery: Short segmental moderate narrowing of 1 cm at the origin. The remainder of the vessel is diffusely atherosclerotic without significant stenosis. R. Popliteal artery: No significant stenosis R. Anterior tibial artery: Diffusely and heavily calcified which limits sensitivity for evaluation of luminal patency. There is likely multifocal severe stenosis. R. Tibioperoneal trunk: Occluded. R. Posterior tibial artery: Diffusely calcified without definite internal flow, likely occluded. R. Peroneal artery: Reconstituted proximally and patent to the level of the ankle. R. Dorsalis pedis artery: Occluded proximally with distal reconstitution through collaterals. R. Plantar artery: Reconstituted approximately and appears patent. Left Lower Extremity: L. Common femoral artery: no significant stenosis L. Profunda femoris artery: no significant stenosis L. Superficial femoral artery: no significant stenosis L. Popliteal artery: no significant stenosis L. Anterior tibial artery: Occluded at the origin with proximal reconstitution. Multifocal severe stenoses are seen throughout the entire vessel. L. Tibioperoneal trunk: Severe stenosis throughout. L. Posterior tibial artery: Diffusely atherosclerotic without definite flow. L. Peroneal artery: Multifocal severe stenoses proximally, but patent to the ankle. L. Dorsalis pedis artery: Occluded proximally with reconstitution in the mid foot. L. Plantar artery: Reconstituted and appears patent. NON-VASCULAR FINDINGS: Patchy bibasilar opacities are present, likely atelectasis. There are small bilateral Bochdalek hernias. A 7 mm nodule is noted in the left lung base. Another 5 mm nodule in the right lower lobe adjacent to the major fissure also present. Liver, spleen, kidneys, adrenals, pancreas, gallbladder, visualized gastrointestinal tract including the appendix, and urinary bladder are normal on this arterial phase study. Prostate gland is within upper limits of normal in size. Morphology of bilateral seminal seminal vesicles is normal and symmetric. Colonic diverticulosis present without diverticulitis. Bone window images demonstrate no suspicious osseous lesions or acute fractures. IMPRESSION: 1. Right lower extremity: 1 cm moderate stenosis at the origin of the SFA. Diffuse atherosclerosis of the vessels in the leg with two-vessel runoff to the ankle consisting of a severely and diffusely diseased anterior tibial artery and a reconstituted peroneal artery. 2. Left lower extremity: Diffuse atherosclerosis of the vessels in the leg, slightly better than the right. Two-vessel runoff to the ankle consisting of a severely and diffusely diseased anterior tibial artery and a peroneal artery with multifocal severe stenoses proximally. 3. Small indeterminate pulmonary nodules at the lung bases. Recommend follow-up chest CT in 6-12 months to document stability. Electronically signed by: Jono Cortez M.D. Gil Brewster DO IMG CT PROCEDURES Final Res ult from Last 3 Months or Most Recently Relevant to Health Maintenance Insurance [facility] MEDICARE [facility] MEDICARE IDPA MANAGED MEDICARE GENERIC RISK OTHER [facility] MEDICARE HMO [facility] Advance Directives For more information, please contact: [phone] * Full Code (Latest Code Status on File) Date Activated Date Inactivated Comments 08/22/2020 1:38 PM 08/22/2020 7:14 PM * Full Code Date Activated Date Inactivated Comments 08/22/2020 1:38 PM 08/22/2020 1:38 PM Care Teams Therapist Phys Relationship Specialty Start Date End Date Cecile Terrell NP [address] [address] PCP - General Family Medicine 03/13/21
--- OUTSIDE RECORDS SUMMARY | 2024-09-07 15:33 | XMS_ITS | Referral Summary ---
Author Organization [facility] Address [address] [place] [address] Care Team Providers Care Biophysics Scientist Name Role Phone Unknown, Provider Primary Care Provider Unavaila ble Source Comments [facility],non-owned Affiliates and Associated Physician Practices is amultiple site organization consisting of ambulatory clinics and hospital sitesin [place], [place], [place] and [place]. This disclosure is being madepursuant to the Care Everywhere program and may not contain all information available regarding this patient. 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 [...] file Gender Identity Male 09/11/2020 8:16 AM [employer]AD [employer] WORK[employer] Sexual Orientation Not on file Last Filed Vital Signs Vital Sign Reading Time Taken Comments Blood Pressure 143/89 08/19/2023 3:24 PM LE[employer] WORK[employer] Pulse 71 08/19/2023 3:24 PM LEAD SUP[employer] WORK[employer] Temperature 36.6 C (97.9 F) 08/19/2023 3:24 PM LEAD SUPPL[employer] WORKER Respiratory Rate 18 08/19/2023 3:24 PM LEAD SUPPLY WORKER Oxygen Saturation 98% 08/19/2023 3:24 PM LEAD SUPPLY WORKER Inhaled Oxygen Concentration - - Weight 110.5 kg (243 lb 9.6 oz) 08/19/2023 3:24 PM LEAD SUPPLY WORKER Height 185.4 cm (6' 1 ) 08/19/2023 3:24 PM LEAD SUPPLY WORKER Body Mass Index 32.14 08/19/2023 3:24 PM LEAD SUPPLY WORKER Functional Status Functional Status Response Date of Assess ment Is person deaf or have serious hearing difficult y? No 12/16/2022 Is person blind or have serious difficulty seein g? No 12/16/2022 Does person have serious dif ficulty walking/climbing stairs? Yes 12/16/2022 Does person have difficulty dressing/bathing? Ye s 12/16/2022 Does person have difficulty doing errands alone? Yes 12/16/2022 Cognitive Status Response Date of Assessm ent Does person have difficulty concentrating/remembering/making decisions? No 12/16/2022 Plan of Treatment Not on file Goals Goal Patient Goal Type Associated Problems Recent Progress Patient-Stated? Author Mobility General No change(2020 12:52 PM CDT) No Fe Thapa, RN Note: Expected end date: 07/27/21 The goal is to maintain or improve your mobility at the optimum level for you. Interventions: PT Medical Devices Implanted Type Area Section Weaver Device Identifier Shelf Expiration Date Model / Serial / Lot Graft Tissue Avance Nrv 30mm Algrf 4-5mm Implanted:Qty: 1 on 09/12/2020 by Per Glez MD at 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) HEMOGLOBIN A1C Routine 09/11/2020 8:14 AM LEAD SUPPLY WORKER from Last 3 Months or Most Recently Relevant to Health Maintenance Results * (ABNORMAL) BASIC METABOLIC PANEL (CALCIUM TOTAL) (12/16/2022 8:35 AM [facility]) BUN 10 7 - 26 mg/dL 12/16/2022 9:29 AM [facility] Creatinine 0.94 0.71 - 1.16 mg/dL 12/16/2022 9:29 AM [facility] Sodium 143 136 - 145 mmol/L 12/16/2022 9:29 AM [facility] Potassium 4.4 3.5 - 4.5 mmol/L 12/16/2022 9:29 AM [facility] Chloride 105 98 - 107 mmol/L 12/16/2022 9:29 AM [facility] CO2 27 22 - 29 mmol/L 12/16/2022 9:29 AM [facility] Glucose 129(H) 70 - 115 mg/dL 12/16/2022 9:29 AM [facility] Calcium 9.3 8.4 - 10.2 mg/dL 12/16/2022 9:29 AM [facility] Anion Gap 15 8 - 18 12/16/2022 9:29 AM [facility] BUN/Creatinine Ratio 11 7 - 23 12/16/2022 9:29 AM [facility] Osmolality Calculated 297 270 - 300 mOsm/kg 12/16/2022 9:29 AM [facility] eGFR by CKD-EPI 90 >=90 mL/min/1.7 3 m2 12/16/2022 9:29 AM [facility] Blood BLOOD SPECIMEN / Unknown Venipuncture / Unknown 12/16/2022 8:35 AM T 12/16/2022 9:02 AM [facility] Fanta Grubbs PA-C LAB - CHEMISTRY O RDERABLES [facility] [address] [place] [address], [facility] [phone] * (ABNORMAL) HEMOGLOBIN A1C (09/11/2020 8:14 AM [facility]) Hemoglobin A1c 7.1(H) 4.4 - 6.3 % 09/11/2020 10:41 AM [facility] Estimated Average Glucose 157 mg/dL 09/11/2020 10:41 AM [facility] Comment: HbA1c Interpretation: Treatment target values recommended by ADA and other clinical organizations should be used to evaluate metabolic control in patients. Treatment Target Values: Normal : < 5.7% Pre-diabetes: 5.7-6.4% Diabetes: Equal to or greater than 6.5% Reference: [place] Diabetes Association Standards of Care in Diabetes -2014 In patients 70 years and older consider HbA1c target range of 7.0-7.5% Reference: Diabetes Mellitus in Older People: Position Statement on behalf of the International Association of Gerontology and Geriatrics (IAGG), the Diabetes Working Republican for Older People (EDWPOP), and the International Task Force of Experts in Diabetes. Mikhail Godinez, et al. J [employer] Medical Directors Association. 2012 Test results diagnostic of diabetes should be repeated for confirmation. The Sebia Capillary 2 assay for the measurement of HbA1c is a National Glycohemoglobin Standardization Program (NGSP)certified method. Blood BLOOD SPECIMEN / Unknown Venipuncture / Unknown 09/11/2020 8:14 AM LEAD SUPPLY WORKER 09/11/2020 8:18 AM LEAD SUPPLY WORKER Narrative [facility] - 09/11/2020 10:41 AM LEAD SUPPLY WORKER note^<nlbl:[email or web address]_changed> Margarita Plata APRN-CLIENT SERVICES ASSISTANT LAB - CHEMISTRY ORDERABLES [facility] [address] [place] [address], [facility] [phone] from Last 3 Months or Most Recently Relevant to Health Maintenance Insurance Payer Benefit Plan / Group Subscriber ID Effective Dates Phone Address Type [facility] [place] [facility] [place] MED[place] [id number] 02/25/2023-Pres ent [address] [place] [address] Medicaid Managed Care [facility] HMO POS MEDICARE ADV [id number] 07/28/2022-Pres ent [employer] [address] [address] [place] [address] Medicare-Man aged Care MEDICAID - OUT OF STATE [place] [id number] Effective for all dates [address] [address] [place] [address] Medicaid MEDICAID - OUT OF STATE [place] [id number] Effective for all dates [address] [address] [place] [address] Medicaid MEDICARE WPS MEDICARE PART B [id number] 06/27/2020-Pre sent [address] [address] [place] [address] Medicare MEDICAID - OUT OF STATE [place] [id number] Effective for all dates [address] [address] [place] [address] Medicaid MEDICARE WPS MEDICARE PART B [id number] 06/27/2020-Pre sent [address] [address] [place] [address] Medicare MEDICAID - OUT OF STATE [place] [id number] Effective for all dates [address] [address] [place] [address] Medicaid MEDICAID - OUT OF STATE [place] [id number] Effective for all dates [address] [address] [place] [address] Medicaid MEDICAID - OUT OF STATE [place] [id number] Effective for all dates [address] [address] [place] [address] Medicaid [employer] HMO POS MEDICARE ADV [id number] 07/28/2022-Pres ent [employer] [address] [address] [place] [address] Medicare-Man aged Care MEDICAID - OUT OF STATE [place] [id number] Effective for all dates [address] [address] [place] [address] Medicaid MEDICARE WPS MEDICARE PART B [id number] 06/27/2020-Pre sent [address] [address] [place] [address] Medicare [employer] WELL[employer] HMO POS MEDICARE ADV [id number] 07/28/2021-Pres ent [employer] [address] [address] [place] [address] Medicare-Man aged Care MEDICAID - OUT OF STATE MEDICAID [facility] PUBLIC AID [id number] Effective for all dates [address] [address] [place] [address] Medicaid MEDICARE WPS MEDICARE PART B [id number] 06/27/2020-Pre sent [address] [address] [place] [address] Medicare [employer] WELL[employer]ARE HMO POS MEDICARE ADV [id number] 07/28/2021-Pres ent [employer] [address] [address] [place] [address] Medicare-Man aged Care MEDICAID - OUT OF STATE MED[place]ID [place] PUBLIC [place] [id number] Effective for all dates [address] [address] [place] [address] Medicaid MEDICARE WPS MEDICARE PART B [id number] 06/27/2020-Pre sent [address] [address] [place] [address] Medicare [employer] HMO POS MEDICARE ADV [id number] 07/28/2021-Pres ent [employer] [address] [address] [place] [address] Medicare-Man aged Care MEDICAID - OUT OF STATE MED[place] [id number] Effective for all dates [address] [address] [place] [address] Medicaid MEDICARE WPS MEDICARE PART B [id number] 06/27/2020-Pre sent [address] [address] [place] [address] Medicare [employer] WELLCARE HMO POS MEDICARE ADV [id number] 07/28/2021-Pres ent [employer] [address] [address] [place] [address] Medicare-Man aged Care MEDICAID - OUT OF STATE [place] [id number] Effective for all dates [address] [address] [place] [address] Medicaid MEDICARE WPS MEDICARE PART B [id number] 06/27/2020-Pre sent [address] [address] [place] [address] Medicare [employer] WELLCARE HMO POS MEDICARE ADV [id number] 07/28/2021-Pres ent [employer] [address] [address] [place] [address] Medicare-Man aged Care MEDICAID - OUT OF STATE MEDICAID [facility] PUBLIC AID [id number] Effective for all dates [address] [address] [place] [address] Medicaid MEDICARE WPS MEDICARE PART B [id number] 06/27/2020-Pre sent [address] [address] [place] [address] Medicare [employer] WELL[employer]ARE HMO POS MEDICARE ADV [id number] 07/28/2021-Pres ent [employer] [address] [address] [place] [address] Medicare-Man aged Care MEDICAID - OUT OF STATE MEDICAID [place] [id number] Effective for all dates [address] [address] [place] [address] Medicaid MEDICARE WPS MEDICARE PART B [id number] 06/27/2020-Pre sent [address] [address] [place] [address] Medicare [employer] WELL[employer]ARE HMO POS MEDICARE ADV [id number] 07/28/2021-Pres ent [employer] [address] [address] [place] [address] Medicare-Man aged Care MEDICAID - OUT OF STATE MED[place] [id number] Effective for all dates [address] [address] [place] [address] Medicaid MEDICARE WPS MEDICARE PART B [id number] 06/27/2020-Pre sent [address] [address] [place] [address] Medicare [employer] WELL[employer]ARE HMO POS MEDICARE ADV [id number] 07/28/2021-Pres ent [employer] [address] [address] [place] [address] Medicare-Man aged Care MEDICAID - OUT OF STATE MEDICAID [place] [id number] Effective for all dates [address] [address] [place] [address] Medicaid [employer] WELL[employer]ARE HMO POS MEDICARE ADV [id number] 07/28/2022-Pres ent [employer] [address] [address] [place] [address] Medicare-Man aged Care [employer] HMO POS MEDICARE ADV [id number] 07/28/2021-Pres ent [employer] [address] [address] [place] [address] Medicare-Man aged Care MEDICAID - OUT OF STATE [place] [id number] Effective for all dates [address] [address] [place] [address] Medicaid [employer] WELL[employer]ARE HMO POS MEDICARE ADV [id number] 07/28/2021-Pres ent [employer] [address] [address] [place] [address] Medicare-Man aged Care MEDICAID - OUT OF STATE MED[place] [id number] Effective for all dates [address] [address] [place] [address] Medicaid [employer] WELL[employer]ARE HMO POS MEDICARE ADV [id number] 07/28/2021-Pres ent [employer] [address] [address] [place] [address] Medicare-Man aged Care MEDICAID - OUT OF STATE MED[place] [id number] Effective for all dates [address] [address] [place] [address] Medicaid [employer] WELLCARE HMO POS MEDICARE ADV [id number] 07/28/2021-Pres ent [employer] [address] [address] [place] [address] Medicare-Man aged Care MEDICAID - OUT OF STATE MEDICAID [facility] PUBLIC AID [id number] Effective for all dates [id number] [place] [place] [address] Medicaid [employer] WELLCARE HMO POS MEDICARE ADV [id number] 07/28/2021-Pres ent [employer] [address] [address] [place] [address] Medicare-Man aged Care MEDICAID - OUT OF STATE MED[place] [id number] Effective for all dates [address] [address] [place] [address] Medicaid [employer] WELLCARE HMO POS MEDICARE ADV [id number] 07/28/2021-Pres ent [employer] [address] [address] [place] [address] Medicare-Man aged Care MEDICAID - OUT OF STATE MEDICAID [facility] PUBLIC AID [id number] Effective for all dates [address] [address] [place] [address] Medicaid [employer] WELLCARE HMO POS MEDICARE ADV [id number] 07/28/2021-Pres ent [employer] [address] [address] [place] [address] Medicare-Man aged Care MEDICAID - OUT OF STATE MEDICAID [facility] PUBLIC AID [id number] Effective for all dates [address] [address] [place] [address] Medicaid [employer] WELLCARE HMO POS MEDICARE ADV [id number] 07/28/2021-Pres ent [employer] [address] [address] [place] [address] Medicare-Man aged Care MEDICAID - OUT OF STATE MEDICAID [facility] PUBLIC AID [id number] Effective for all dates [address] [address] [place] [address] Medicaid [employer] WELLCARE HMO POS MEDICARE ADV [id number] 07/28/2021-Pres ent [employer] [address] [address] [place] [address] Medicare-Man aged Care MEDICAID - OUT OF STATE MED[place]ID [place] PUBLIC A[place] [id number] Effective for all dates [address] [address] [place] [address] Medicaid [employer] WELLCARE HMO POS MEDICARE ADV [id number] 07/28/2021-Pres ent [employer] [address] [address] [place] [address] Medicare-Man aged Care MEDICAID - OUT OF STATE MEDICAID [facility] PUBLIC AID [id number] Effective for all dates [address] [address] [place] [address] Medicaid [employer] WELLCARE HMO POS MEDICARE ADV [id number] 07/28/2021-Pres ent [employer] [address] [address] [place] [address] Medicare-Man aged Care MEDICAID - OUT OF STATE MEDICAID [facility] PUBLIC AID [id number] Effective for all dates [address] [address] [place] [address] Medicaid [employer] WELLCARE HMO POS MEDICARE ADV [id number] 07/28/2021-Pres ent [employer] [address] [address] [place] [address] Medicare-Man aged Care MEDICAID - OUT OF STATE MEDICAID [facility] PUBLIC AID [id number] Effective for all dates [address] [address] [place] [address] Medicaid [employer] WELLCARE HMO POS MEDICARE ADV [id number] 07/28/2021-Pres ent [employer] [address] [address] [place] [address] Medicare-Man aged Care MEDICAID - OUT OF STATE MEDICAID [place] [id number] Effective for all dates [address] [address] [place] [address] Medicaid [employer] WELLCARE HMO POS MEDICARE ADV [id number] 07/28/2021-Pres ent [employer] [address] [address] [place] [address] Medicare-Man aged Care MEDICAID - OUT OF STATE MEDICAID [place] [id number] Effective for all dates [address] [address] [place] [address] Medicaid [employer] WELLCARE HMO POS MEDICARE ADV [id number] 07/28/2021-Pres ent [employer] [address] [address] [place] [address] Medicare-Man aged Care MEDICAID - OUT OF STATE MEDICAID [place] [id number] Effective for all dates [address] [address] [place] [address] Medicaid [employer] WELLCARE HMO POS MEDICARE ADV [id number] 07/28/2021-Pres ent [employer] [address] [address] [place] [address] Medicare-Man aged Care MEDICAID - OUT OF STATE MEDICAID [place] PUBLIC [place] [id number] Effective for all dates [address] [address] [place] [address] Medicaid [employer] WELLCARE HMO POS MEDICARE ADV [id number] 07/28/2021-Pres ent [employer] [address] [address] [place] [address] Medicare-Man aged Care MEDICAID - OUT OF STATE MEDICAID [place] PUBLIC [place] [id number] Effective for all dates [address] [address] [place] [address] Medicaid MEDICARE WPS MEDICARE PART B [id number] 06/27/2020-Pre sent [address] [address] [place] [address] Medicare MEDICAID - OUT OF STATE MEDICAID [place] [id number] Effective for all dates [address] [address] [place] [address] Medicaid MEDICARE WPS MEDICARE PART B [id number] 06/27/2020-Pre sent [address] [address] [place] [address] Medicare MEDICAID - OUT OF STATE MEDICAID [place] [id number] Effective for all dates [address] [address] [place] [address] Medicaid MEDICARE WPS MEDICARE PART B [id number] 06/27/2020-Pre sent [address] [address] [place] [address] Medicare MEDICAID - OUT OF STATE MEDICAID [place] [id number] Effective for all dates [address] [address] [place] [address] Medicaid MEDICARE WPS MEDICARE PART B [id number] 06/27/2020-Pre sent [address] [address] [place] [address] Medicare MEDICAID - OUT OF STATE MEDICAID [place] [id number] Effective for all dates [address] [address] [place] [address] Medicaid MEDICARE WPS MEDICARE PART B [id number] 06/27/2020-Pre sent [address] [address] [place] [address] Medicare MEDICAID - OUT OF STATE MEDICAID [facility] PUBLIC AID [id number] Effective for all dates [address] [address] [place] [address] Medicaid MEDICARE WPS MEDICARE PART B [id number] 06/27/2020-Pre sent [address] [address] [place] [address] Medicare MEDICAID - OUT OF STATE MEDICAID [place] [id number] Effective for all dates [address] [address] [place] [address] Medicaid MEDICAID - OUT OF STATE MEDICAID [place] [id number] Effective for all dates [address] [address] [place] [address] Medicaid MEDICAID - OUT OF STATE MEDICAID [place] [id number] Effective for all dates [address] [address] [place] [address] Medicaid MEDICAID - OUT OF STATE MEDICAID [place] [id number] Effective for all dates [address] [address] [place] [address] Medicaid MEDICAID - OUT OF [facility] MEDICAID - [place] [id number] Effective for all dates [address] [address] [place] [address] Medicaid MEDICAID - OUT OF [facility] MEDICAID - [place] [id number] Effective for all dates [id number] [place] [address] Medicaid MEDICAID - OUT OF [facility] MEDICAID - [place] [id number] Effective for all dates [address] [address] [place] [address] Medicaid MEDICAID - OUT OF [facility] MEDICAID - [place] [id number] Effective for all dates [address] [address] [place] [address] Medicaid MEDICARE WPS MEDICARE PART B [id number] 06/27/2020-Pre sent [address] [address] [place] [address] Medicare MEDICARE WPS MEDICARE PART B [id number] 06/27/2020-Pre sent [address] [address] [place] [address] Medicare Advance Directives * Full Code (Latest Code Status on File) Date Activated Date Inactivated Comments 09/11/2020 11:47 PM 09/13/2020 3:46 PM * Full Code Date Activated Date Inactivated Comments 09/10/2020 11:11 AM 09/11/2020 7:25 PM Care Teams Biophysics Scientist Relationship Specialty Start Date End Date Unknown, Provider PCP - General 01/01/18
--- OUTSIDE RECORDS SUMMARY | 2024-09-07 15:33 | XMS_ITS | Referral Summary ---
Author Organization [facility] Medical Office Building A Address [address] [place] [address] Care Team Providers Care Clinical Unit Coordinator Name Role Phone Cecile Terrell NP Primary Care Provider [phone] Allergies No known active allergies Medications albuterol [...] (07/24/2020): Added automatically from request for surgery [id number] Positive colorectal cancer s creening using DNA-based stool test 07/24/2020 Overview (07/24/2020): Added automatically from request for surgery [id number] PVD (peripheral vascular disease) (CMS/HCC) 02/2020 Assessment [...] again stressed the importance of smoking cessation. Social History Tobacco Use Types Packs/Day Years Used Date Smoking Tobacco: Every Day Cigarettes 0.5 40 Personal Safety Answer Date Recorded Getting School Help Needed Not on file 09/23 Sex and Gender Information Value Date Recorded Sex Assigned at Not on file Legal Sex Male 9:22 AM SERVICE DELIVERY MANAGEMENT CONSULTANT Gender Identity Not on file Sexual Orientation Not on file Last Filed Vital Signs Vital Sign Reading Time Taken Comments Blood Pressure 114/70 03/13/2021 1:17 PM CDT Pulse 66 03/13/2021 1:17 PM CDT Temperature 36 C (96.8 F) 08/22/2020 2:57 PM SERVICE DELIVERY MANAGEMENT CONSULTANT Respiratory Rate 14 03/13/2021 1:17 PM CDT Oxygen Saturation 100% 08/22/2020 2:57 PM SERVICE DELIVERY MANAGEMENT CONSULTANT Inhaled Oxygen Concentration - - Weight 112.5 kg (248 lb) 04/03/2023 1:41 PM CDT Height 185.4 cm (6' 1 ) 04/03/2023 1:41 PM CDT Body Mass Index 32.72 04/03/2023 1:41 PM CDT Plan of Treatment Not on file Procedures Procedure Name Priority Date/Time Associated Diagnosis Comments EGFR Routine 03/27/2022 12:52 PM CDT HEMOGLOBIN A1C Routine 03/27/2022 12:52 PM CDT LIPID PANEL Routine 10/31/2021 11:45 AM CDT COLONOSCOPY 08/22/2020 1:47 PM SERVICE DELIVERY MANAGEMENT CONSULTANT CTA ABDOMINAL AORTA AND BILATERAL ILIOFEMORAL RUNOFF [...] BLOOD ORDERABL ES Final Result DALLIN WILCOX ([place]) 1 [facility] Department of Laboratories [place], [place] [id number] * (ABNORMAL) Hemoglobin A1c (03/27/2022 12:52 PM [...] and children were not included. (Diabetes Care 31:4495-6468, 2008). The eAG is not equivalent to a fasting glucose. Blood 03/27/2022 12:5 2 PM CDT 03/27/2022 3:20 PM CDT Jt Banegas MD LAB BLOOD ORDERABL ES Final Result DALLIN WILCOX ([place]) 1 [facility] Department [place] [address] * Lipid panel (10/31/2021 11:45 AM CDT) [...] last revised on 2018. Chol/HDL ratio 3 TAYLORNE Fatou WILCOX ([place]) Blood 10/31/2021 11:4 5 AM CDT 10/31/2021 12:09 PM CDT Jt Banegas MD LAB BLOOD ORDERABL ES Final Result DALLIN [facility] [place] 1 [facility] Department [place] [address] * COLONOSCOPY (08/22/2020 1:47 PM SERVICE DELIVERY MANAGEMENT CONSULTANT) Anatomical Region Laterality Modality Other Narrative Procedure Note Ignacio Landers MD - 08/22/2020 1:47 PM CST [facility] Patient Name: Philip Barron Procedure Date: 08/22/2020 1:47 PM Date of : 1955 Admit Type: Outpatient Age: 65 Gender: Male Attending MD: Ignacio Landers M.D. Room: [facility] ROOM 1 Note Status: Finalized Patient [...] passed under direct vision.The Pediatric Colonoscope PCF-H190L [id number] was introduced through the anus and advanced [...] 1:47 PM Procedure Code(s): --- Professional --- 76638, Colonoscopy, flexible; with biopsy, single or multiple Diagnosis Code(s): --- Professional --- Z12.11, Encounter for screening for malignant neoplasm of colon K64.8, Other hemorrhoids D12.5, Benign neoplasm of sigmoid colon K57.30, Diverticulosis of large intestine without perforation orabscess without bleeding CPT copyright 2017 [employer]. All rights reserved. The codes documented in this report are preliminary and upon chief mechanical engineer reviewmay be revised to meet current compliance requirements. Recognized by the [place] [employer] for promoting quality [...] Most Recently Relevant to Health Maintenance Insurance [facility] MEDICARE O [facility] MEDICARE IDPA MANAGED MEDICARE GENERIC RISK OTHER [facility] MEDICARE HMO [facility] Advance Directives For more information, please contact: [phone] * Full Code (Latest Code Status on File) Date Activated Date Inactivated Comments 08/22/2020 1:38 PM 08/22/2020 7:14 PM * Full Code Date Activated Date Inactivated Comments 08/22/2020 1:38 PM 08/22/2020 1:38 PM Care Teams Clinical Unit Coordinator Relationship Specialty Start Date End Date Cecile Terrell NP [address] [address] PCP - General Family Medicine 03/13/21
--- OUTSIDE RECORDS SUMMARY | 2024-09-07 15:34 | XMS_ITS | Encounter Summary ---
Author Organization [facility] Address [address] [facility] [place] [address] Phone Care Team Providers Care Potato Inspector Name Role Phone Cecile Terrell APRN, CNP Primary Care Provider Reason for Referral * PT/OT/ST (Routine) - Closed Specialty Diagnoses / Procedures Referred By Contdave t Referred To Contact Occupational Therapy Diagnoses Wrist drop, right wrist Cecile Terrell APRN, CNP [address] [place] [address] Phone: tel: fax: [facility] at [address] [address] Phone: tel: fax: Referral ID Status Reason Start Date Expiration Date Visits Re quested Visits Authorized [id number] Closed 03/11/2024 50 3 Scheduling Instructions Encounter Details Date Type Department Care Team (Latest Contact Info) Description 03/11/2024 Transcribe Orders [facility] [address] [place] [address] Cecile Terrell APRN, CNP [address] [place] [address] Wrist drop, right wrist (Primary Dx) Social History Tobacco Use Types Packs/Day Years Used Date Smoking Tobacco: Every Day Cigarettes Smokeless Tobacco: Never Comments:about 10 cigarettes Alcohol Use Standard Drinks/Week Comments Not Currently 0 (1 standard drink = 0.6 oz pur e alcohol) daily Sex and Gender Information Value Date Recorded Sex Assigned at Not on file Legal Sex Male 10:26 PM CDT Gender Identity Not on file Sexual Orientation Not on file documented as of this encounter Plan of Treatment Scheduled Referrals Name Type Priority Associated Diagnoses Order Schedule OCCUPATIONAL THERAPY REFERRAL Outpatient Referral Routine Wrist drop, right wrist Expected: 03/11/2024, Expires: 03/11/2025 documented as of this encounter Visit Diagnoses Diagnosis Wrist drop, right wrist- Primary documented in this encounter Care Teams Potato Inspector Relationship Specialty Start Date End Date Cecile Terrell APRN, [employer] [address] [place] [address] PCP - General Advanced Practice Nurse 04/22/22 documented as of this encounter
--- OUTSIDE RECORDS SUMMARY | 2024-09-07 15:34 | XMS_ITS | Data Portability ---
Author Organization [facility] AMIESugar Address [address] [place] [address] Care Team Providers Care Box Annealer Name Role Phone RYLEE, CECILE Primary Care Provider [phone] Assessment Encounter Date Assessment Date Assessment LastModified by Organization Details LastModified Time 08/21/2023 08/21/2023 Mr. Barron presented in office today for f/u appointment. Not available 08/23/2023 13:11:46 12/18/2023 12/18/2023 Mr. Barron presented in the office today accompanied by caregiver for follow up appointment and Medicare wellness exam. Not available 12/20/2023 19:49:07 01/20/2024 01/20/2024 Mr. Barron arrived in the office today, accompanied by caregiver, for a wigh-gw-qdnd appointment regarding the need for a powered wheelchair to assist with mobility. Not available 01/22/2024 14:43:15 02/19/2024 02/19/2024 Mr. Barron presented in office today for follow up appointment. Patient complaining of tooth pain since last visit. Not available 02/22/2024 23:36:33 Plan of Treatment Reminders Order Date Submit Date Provider Last Modified By Organization Details Last Modified Time Details Appointments None recorded. Lab CBC w/ auto diff 2023 024 jose ramon [facility] (Lab), [address] [place], [address], 12:56:51 ige, total, serum 2023 024 jose ramon [facility] ([facility]), [address], [place], [address], 12:57:29 HbA1c (hemoglob in A1c), blood 2023 024 [facility], [address] [facility] [address], [place], [address], 4 11:14:59 lipid panel, serum 2023 024 [facility], [address] [facility], [place], [address], 4 11:14:59 PSA, total, serum or plasma 2023 024 [facility], [address] [place] [address] 2, [place], [address], 4 11:14:59 CMP, serum or plasma 2023 024 [facility], [address] [facility] [address], [place], [address], 4 11:14:59 CBC w/ auto diff 2023 024 [facility], [address] [place] [address] 2, [place], [address], 11:14:59 HbA1c (hemoglob in A1c), blood 2023 024 [facility] In-Office Order, Internal Use Only DO Not Attach Compendium DO Not Attach Compendium, Do Not Delete/merge, [id number] 12:31:30 Referral physical therapist referral 2023 024 [facility], [address] [facility], [facility] [address], [place], [address], 4 12:06:29 podiatris t referral 2023 024 [facility] Prado DPM, [address] [facility], [address], [place], [address], 4 15:08:08 podiatris t referral 2023 024 garrett [facility], [facility], [address], [facility] [address], [place], [address], 4 13:38:43 gastroent erologist referral 2023 024 alfredofitz Singletary MD, [address] [facility], [facility] [address], [place], [address], 4 12:59:51 Procedures pulmonary stress test, simple (PROC) - 6 Minute Walk Test 2023 024 [facility], [address] [place] [address], [address], 5 05:01:11 polysomno graphy, split night (PROC) 2023 024 [facility], [address] [place] [address], [address], 5 05:01:11 Surgeries None recorded. Imaging LDCT, chest, for lung cancer screening 2023 024 [facility], [address] [place] [address], [address], 4 09:55:58 PFT, complete - W/ Post Bronchodi lator Spirometr y 2023 024 [facility], [address] [place] [address], [address], 4 05:01:06 Medication Orders albuterol sulfate HFA 90 mcg/actua tion aerosol inhaler 2023 024 [id number], [address] [facility], [place], [place], [id number], 4 12:02:57 Symbicort 160 mcg-4.5 mcg/actua tion HFA aerosol inhaler 2023 024 [facility], [address] [facility], [place], [place], [id number], 4 10:46:50 doxycycli ne monohydra te 100 mg tablet 2023 024 [facility], [address] [facility], [place], [place], [id number], 4 10:46:01 prednison e 10 mg tablets in a dose pack 2023 024 [facility] #69020, [address] [facility], [place], [place], [id number], 4 10:46:55 albuterol sulfate HFA 90 mcg/actua tion aerosol inhaler 2023 024 [facility], [address] [facility], [place], [place], [id number], 4 11:01:18 bupropion HCl XL 150 mg 24 hr tablet, extended release [address] [facility] #92499, [address] [facility], [place], [place], [id number], 4 14:33:14 amoxicill in 875 mg tablet 2023 024 [facility], [address] [place], [place], [id number], 4 12:19:48 bupropion HCl XL 150 mg 24 hr tablet, extended release [address] [facility] #67259, [address] [place] [address], [id number], 12:24:31 Patient TargetsNo targets recorded. Patient Instructions Encounter Date Encounter Id Patient Instructions Last Modified By Organization Details Last Modified Time 08/21/2023 [id number] - Always present to ER or Urgent Care with any progression of/alarming symptoms, significant changes in symptoms or any concerning or urgent matters Not available 08/23/2023 13:17:26 10/27/2023 [id number] Quitting Tobacco : Care Instructions ajamous Not available 10/27/2023 10:46:37 chronic obstructive pulmonary disease (COPD): care instructions ajamous Not available 10/27/2023 10:46:37 learning about chronic bronchitis ajamous Not available 10/27/2023 10:46:38 12/18/2023 [id number] Quitting Tobacco : Care Instructions Not available 12/20/2023 19:55:20 advance care planning: care instructions Not available 12/18/2023 11:08:50 preventing falls : care instructions Not available 12/18/2023 11:08:51 Quitting Tobacco : Care Instructions Not available 12/18/2023 11:08:51 Medicare [facility] Preventive Checklist Not available 12/18/2023 11:08:51 eating healthy foods: care instructions Not available 12/18/2023 11:08:51 AD8 Dementia Screening Interview Not available 12/18/2023 11:08:51 A healthy lifestyle: care instructions Not available 12/18/2023 11:08:50 - Always present to ER or Urgent Care with any progression of/alarming symptoms, significant changes in symptoms or any concerning or urgent matters Not available 12/18/2023 11:00:29 01/20/2024 [id number] - Always present to ER or Urgent Care with any progression of/alarming symptoms, significant changes in symptoms or any concerning or urgent matters Not available 01/20/2024 10:39:56 02/19/2024 [id number] - Always present to ER or Urgent Care with any progression of/alarming symptoms, significant changes in symptoms or any concerning or urgent matters Not available 02/19/2024 12:17:04 Reason for Referral [employer] Supervisor Referral for Type 2 diabetes mellitus Referring Physician: Cecile Mckee [facility], Encounter Date: 08/21/2023 Physical Therapist Referral for Cerebrovascular accident Referring Physician: Cecile Mckee [facility] [place], Encounter Date: 08/21/2023 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 Referral for History of polyp of colon Referring Physician: Cecile Mckee [facility] [place], Encounter Date: 12/18/2023 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 Problems Name Problem SNOMED Code Status Onset Date Resolution Date Notes Provider Name and Address Organization Details Recorded Time Type 2 diabetes mellitus 00007828 Active 2017 Not Available [facility] 2 22:01:02 Well controlled type 2 diabetes mellitus 809494737 Active 2017 Not Available [facility] 2 22:01:02 Feeling suicidal 265293744 Active 2017 Not Available [facility] 2 22:01:02 Pain in bilateral legs 7092531986779 9108 Active 2017 Not Available [facility] 2 22:01:02 Foot callus 670515163 Active 2017 Not Available [facility] 2 22:01:02 Neuropathy 735546502 Active 2018 Not Available [facility] 2 22:01:02 Pain in bilateral lower legs 6181419945547 9106 Active 2018 Not Available [facility] 2 22:01:02 Insomnia 135522534 Active 2019 Not Available [facility] 2 22:01:02 Peripheral vascular disease 753531847 Active 2019 Not Available [facility] 2 22:01:02 Body mass index 30+ - obesity 755902896 Active 2021 Not Available [facility] 2 22:01:02 Dizziness 293545706 Active 2022 CECILE MCKEE NP Attn: Accounting ,[address] [place], [address] , [place] [facility] 3 11:55:08 Cerebrovas cular accident 651626402 Active 2022 CECILE MCKEE NP Attn: Accounting ,[address] [place], [place], [address] [place] [address] , [place] - [facility] 4 16:28:56 Hyperlipid emia 01616522 Active 2023 CECILE MCKEE NP Attn: Accounting ,[address] [place], [address] , [place] [facility] 4 11:08:40 Impaired mobility 83137538 Active 2023 CECILE MCKEE NP Attn: Accounting ,[address] [place], [address] , [place] [facility] 4 14:34:08 Chronic obstructiv e pulmonary disease 22473996 Active Not Available [facility] 2 22:01:02 Essential hypertensi on 58670839 Active Not Available [facility] 2 22:01:02 Tobacco user 405664968 Active Not Available [facility] 2 22:01:02 Blood glucose outside reference range 642988829 Active Not Available [facility] 2 22:01:02 Dyspnea 842767729 Active Not Available [facility] 2 22:01:02 Problem Notes None recorded. Medical Equipment None Reported. Allergies No known drug allergies Medications Name Sig Start Date Stop Date Status Note LastModified by Organization Details LastModified Time atorvastati n 40 mg tablet TAKE 2 TABLETS BY MOUTH DAILY 07/03 completed Not Available Not Available Not Available terbinafine HCl 1 % topical cream 10/26 completed Not Available Not Available Not Available Qvar 80 mcg/actuati on Metered Aerosol oral inhaler Inhale 2 puffs twice a day by inhalatio n route. 03/13 completed Not Available Not Available Not Available prednisone 10 mg tablet 12/17 completed Not Available Not Available Not Available nicotine 14 mg/24 hr daily transdermal patch Apply 1 patch every day by transderm al route. 10/26 completed Not Available Not Available Not Available ipratropium 0.5 mg-albutero l 3 mg (2.5 mg base)/3 mL nebulizatio n soln U 3 ML VIA NEB QID PRF SOB 03/15 completed Not Available Not Available Not Available albuterol sulfate 2.5 mg/3 mL (0.083 %) solution for nebulizatio n USE 1 VIAL PER NEBULIZER THREE TIMES DAILY NEEDED active Not Available Not Available No t Available ammonium lactate 12 % lotion APPLY TO FEET TWICE DAILY 07/16 completed Not Available Not Available Not Available trazodone 50 mg tablet Take 1 tablet every day by oral route at bedtime. 10/26 completed Not Available Not Available Not Available cilostazol 50 mg tablet TAKE 1 TABLET BY MOUTH TWICE DAILY 09/18 completed Not Available Not Available Not Available ofloxacin 0.3 % eye drops 10/26 completed Not Available Not Available Not Available levetiracet am 500 mg tablet TAKE 1 TABLET BY MOUTH EVERY 12 HOURS 07/03 completed Not Available Not Available Not Available hydrocodone 5 mg-acetamin ophen 325 mg tablet TAKE 1 TABLET BY MOUTH EVERY 6 HOURS NEEDED FOR PAIN 01/15 completed Not Available Not Available Not Available lisinopril 20 mg tablet TAKE 1 TABLET BY MOUTH EVERY DAY 10/10 completed Not Available Not Available Not Available ondansetron HCl 4 mg tablet active Not Available Not Available Not Available prednisone 20 mg tablet 10/26 completed Not Available Not Available Not Available clopidogrel 75 mg tablet TAKE 1 TABLET BY MOUTH EVERY DAY 12/17 completed Not Available Not Available Not Available amlodipine 5 mg tablet TAKE 1 TABLET BY MOUTH EVERY DAY active Not Available Not Available No t Available sildenafil 25 mg tablet Take 1 tablet by oral route. 01/15 completed Not Available Not Available Not Available aspirin 81 mg tablet,wendie yed release TAKE 1 TABLET BY MOUTH EVERY DAY 07/03 completed Not Available Not Available Not Available doxycycline monohydrate 100 mg tablet TAKE 1 TABLET BY MOUTH TWICE DAILY FOR 7 DAYS 12/17 completed Not Available Not Available Not Available tramadol 50 mg tablet TAKE 1 TABLET BY MOUTH EVERY 12 HOURS NEEDED active Not Available Not Available No t Available triamcinolo ne acetonide 0.1 % topical cream APPLY THIN LAYER EXTERNALL Y TO THE AFFECTED AREA TWICE DAILY 10/26 completed Not Available Not Available Not Available simvastatin 40 mg tablet 10/26 completed Not Available Not Available Not Available ketorolac 0.5 % eye drops 10/26 completed Not Available Not Available Not Available prednisone 10 mg tablets in a dose pack Take 1 dose pk by oral route for 6 days. 12/17 completed Not Available Not Available Not Available amoxicillin 875 mg tablet Take 1 tablet every 12 hours by oral route for 7 days. active Not Available Not Available No t Available prednisolon e acetate 1 % eye drops,suspe nsion 10/26 completed Not Available Not Available Not Available trazodone 100 mg tablet TAKE 1 TABLET BY MOUTH EVERY DAY 01/15 completed Not Available Not Available Not Available ciprofloxac in 0.3 % eye drops active Not Available Not Available No t Available amlodipine 10 mg tablet take one tablet by mouth every day 03/13 completed Not Available Not Available Not Available benzonatate 100 mg capsule Take 1 capsule 3 times a day by oral route for 10 days. 07/03 completed Not Available Not Available Not Available cephalexin 500 mg capsule 02/04 completed Not Available Not Available Not Available nystatin 100,000 unit/gram topical cream APPLY THIN LAYER TO EFFECTED AREA TWICE DAILY 10/26 completed Not Available Not Available Not Available lisinopril 10 mg tablet Take 1 tablet every day by oral route. 03/11 completed Not Available Not Available Not Available Advair Diskus 250 mcg-50 mcg/dose powder for inhalation INHALE 1 PUFF BY MOUTH TWICE DAILY active Not Available Not Available No t Available nicotine 21 mg/24 hr daily transdermal patch Apply 1 patch every day by transderm al route. 11/19 completed Not Available Not Available Not Available lisinopril 30 mg tablet TAKE 1 TABLET BY MOUTH EVERY DAY 2024 active Not Available Not Available Not Avai lable betamethaso ne dipropionat e 0.05 % topical cream APPLY THIN LAYER EXTERNALL Y TO THE AFFECTED AREA EVERY DAY 10/26 completed Not Available Not Available Not Available gabapentin 300 mg capsule TAKE 1 CAPSULE BY MOUTH TWICE DAILY active Not Available Not Available No t Available sertraline 25 mg tablet 10/26 completed Not Available Not Available Not Available aspirin 81 mg chewable tablet CHEW AND SWALLOW 1 TABLET BY MOUTH DAILY 01/15 completed Not Available Not Available Not Available ammonium lactate 12 % topical cream APPLY TOPICALLY TO THE AFFECTED AREA EVERY DAY NEEDED active Not Available Not Available No t Available lisinopril 5 mg tablet 03/11 completed Not Available Not Available Not Available hydrochloro thiazide 25 mg tablet TAKE 1 TABLET BY MOUTH EVERY DAY active Not Available Not Available No t Available gabapentin 100 mg capsule 10/26 completed Not Available Not Available Not Available albuterol sulfate HFA 90 mcg/actuati on aerosol inhaler INHALE 2 PUFFS BY MOUTH EVERY 4 HOURS NEEDED 2023 active Not Available Not Available Not Avai lable ketoconazol e 2 % topical cream APPLY TOPICALLY TO THE AFFECTED AREA ON TOENAILS EVERY DAY 12/17 completed Not Available Not Available Not Available sertraline 50 mg tablet 10/26 completed Not Available Not Available Not Available nicotine 7 mg/24 hr daily transdermal patch Apply 1 patch every day by transderm al route. 10/26 completed Not Available Not Available Not Available nicotine 21mg/24hr-1 4mg/24hr-7m g/24hr daily transderm patches,seq uentl Apply 1 patch every day by transderm al route as directed. 02/04 completed Not Available Not Available Not Available bupropion HCl XL 150 mg 24 hr tablet, extended release TAKE 1 TABLET BY MOUTH EVERY DAY active Not Available Not Available No t Available amlodipine 10 mg-atorvast atin 10 mg tablet 03/13 completed Not Available Not Available Not Available Spiriva with HandiHaler 18 mcg and inhalation capsules INHALE CONTENTS OF 1 CAPSULE ONCE DAILY USING HANDIHALE R 08/11 completed Not Available Not Available Not Available Flovent HFA 44 mcg/actuati on aerosol inhaler INHALE 2 PUFFS BY MOUTH TWICE DAILY 08/30 completed Not Available Not Available Not Available Flovent HFA 110 mcg/actuati on aerosol inhaler INHALE 1 PUFF BY MOUTH TWICE DAILY 10/26 completed Not Available Not Available Not Available pregabalin 25 mg capsule TAKE ONE CAPSULE BY MOUTH TWICE DAILY 01/15 completed Not Available Not Available Not Available Advair HFA 115 mcg-21 mcg/actuati on aerosol inhaler USE 2 INHALATIO NS BY MOUTH TWICE DAILY active Not Available Not Available No t Available Januvia 100 mg tablet TAKE 1 TABLET BY MOUTH EVERY DAY, NEEDS TO SCHEDULE APPOINTME NT WITH PCP FOR ADDITIONA L REFILLS 2024 active Not Available Not Available Not Avai lable hydrochloro thiazide 12.5 mg tablet TAKE 1 TABLET BY MOUTH EVERY DAY active Not Available Not Available No t Available Symbicort 80 mcg-4.5 mcg/actuati on HFA aerosol inhaler INHALE 2 PUFFS BY MOUTH TWICE DAILY 03/17 completed Not Available Not Available Not Available Tudorza Pressair 400 mcg/actuati on breath activated 03/11 completed Not Available Not Available Not Available Jardiance 10 mg tablet TAKE 1 TABLET BY MOUTH DAILY 11/19 completed Not Available Not Available Not Available Spiriva Respimat 2.5 mcg/actuati on solution for inhalation Inhale 2 puff(s) every day by inhalatio n route. 08/11 completed Not Available Not Available Not Available Incruse Ellipta 62.5 mcg/actuati on powder for inhalation INHALE 1 PUFF BY MOUTH EVERY DAY 03/15 completed Not Available Not Available Not Available Qvar RediHaler 40 mcg/actuati on HFA breath activated aerosol INHALE 2 PUFFS BY MOUTH TWICE DAILY 06/04 completed Not Available Not Available Not Available Afluria Quad 60 mcg (15 mcg x 4)/0.5 mL IM suspension 07/10 completed Not Available Not Available Not Available Afluria Qd (36 mos up)(PF)60 mcg (15 mcg x4)/0.5 mL IM syringe 07/10 completed Not Available Not Available Not Available aspirin 81 mg capsule Take 1 capsule every day by oral route. 01/15 completed Not Available Not Available Not Available Breyna 160 mcg-4.5 mcg/actuati on HFA aerosol inhaler INHALE 2 PUFFS BY MOUTH TWICE DAILY active Not Available Not Available No t Available Vitals Date Recorded Body height Body mass index (BMI) Body weight Oxygen saturation Oxygen saturation in Arterial blood by Pulse oximetry Heart rate Respiratory rate Body temperature Systolic blood pressure Diastolic blood pressure Provider Name and Address Organization Details Last Updated DateTime 4 186.69 cm 31.8 kg/m2 920726. 89 g 97 % 97 % 78 /min 18 /min 97.3 [degF] 138 mm[Hg] 80 mm[Hg] Olga Rendon LPN [facility] 4 11:34:34 Date Recorded Body height Pain severity - 0-10 verbal numeric rating [Score] - Reported Body temperature Body mass index (BMI) Body weight Oxygen saturation Oxygen saturation in Arterial blood by Pulse oximetry Heart rate Respiratory rate Systolic blood pressure Diastolic blood pressure Provider Name and Address Organization Details Last Updated DateTime 4 185.42 cm 0 98.4 [degF] 31.4 kg/m2 452873. 98 g 96 % 96 % 76 /min 18 /min 120 mm[Hg] 72 mm[Hg] Cecile Jasso LPN [facility] 4 10:00:23 Date Recorded Body height Respiratory rate Body mass index (BMI) Body weight Body temperature Heart rate Oxygen saturation Oxygen saturation in Arterial blood by Pulse oximetry Systolic blood pressure Diastolic blood pressure Provider Name and Address Organization Details Last Updated DateTime 4 185.42 cm 16 /min 31.6 kg/m2 458778. 73 g 97.1 [degF] 77 /min 94 % 94 % 115 mm[Hg] 70 mm[Hg] Kallie Loera MA [facility] 4 10:53:57 Date Recorded Body height Respiratory rate Body mass index (BMI) Body weight Body temperature Heart rate Oxygen saturation Oxygen saturation in Arterial blood by Pulse oximetry Systolic blood pressure Diastolic blood pressure Provider Name and Address Organization Details Last Updated DateTime 4 185.42 cm 16 /min 31.8 kg/m2 211567. 11 g 96.9 [degF] 89 /min 91 % 91 % 126 mm[Hg] 75 mm[Hg] Kallie Loera MA [facility] 4 10:36:24 Date Recorded Body height Respiratory rate Body mass index (BMI) Body weight Body temperature Heart rate Oxygen saturation Oxygen saturation in Arterial blood by Pulse oximetry Systolic blood pressure Diastolic blood pressure Provider Name and Address Organization Details Last Updated DateTime 4 185.42 cm 16 /min 30.7 kg/m2 996082. 88 g 96.9 [degF] 68 /min 97 % 97 % 147 mm[Hg] 84 mm[Hg] Kallie Loera MA [facility] 4 12:06:25 Date Recorded Systolic blood pressure Diastolic blood pressure Provider Name and Address Organization Details Last Updated DateTime 02/19/2024 131 mm[Hg] 82 mm[Hg] CECILE MCKEE NP Attn: Accounting,[address] [place], [address], [facility] 02/19/2024 12:24:27 Social History Question Answer Notes LastModified by Organizat ion Details LastModified Time Tobacco Smoking Status Current Every Day Smoker Yesy Aguirre MA [facility], [facility] 04/26/2015 10:19:30 Do You Have An Advance Directive? No Information not available 10/27/2023 What Is Your Level Of Alcohol Consumption? Moderate 3 Beers A Day [email or web address] Information not available 03/15/2022 Are You Blind Or Do You Have Difficulty Seeing? No Information not available 10/26/2020 What Is Your Level Of Caffeine Consumption? Heavy 1-3 Cups Coffee Per Day Information not available 03/12/2021 In The 14 Days Before Symptom Onset, Have You Had Close Contact With A Laboratory-confi rmed COVID-19 While That Case Was Ill? No Information not available 08/20/2021 In The 14 Days Before Symptom Onset, Have You Had Close Contact With A Person Who Is Under Investigation For COVID-19 While That Person Was Ill? No Information not available 08/20/2021 Have You Been To An Area Known To Be High Risk For COVID-19? No Information not available 08/20/2021 Are You Currently Employed? No Disability Information not available 10/26/2020 Are You Deaf Or Do You Have Serious Difficulty Hearing? No Information not available 10/26/2020 What Type Of Diet Are You Following? REGULAR Information not available 10/26/2020 Are There Any Guns Present In Your Home? No Information not available 01/15/2022 Marital Status Single [email or web address] Informatio n not available 04/26/2015 Do You Have A Medical Power Of Record Tester? No Information not available 10/27/2023 What Was The Date Of Your Most Recent Tobacco Screening? 02/19/2024 Information not available 02/19/2024 What Is Your Current Pack Years? 30ormorepac kyears Information not available 11/19/2022 What Is Your Relationship Status? Single Information not available 10/26/2020 Do You Use Your Seat Belt Or Car Seat Routinely? Yes Information not available 08/20/2021 Do You Have Smoke And Carbon Monoxide Detectors In Your Home? Yes Information not available 10/26/2020 At What Age Did You Start Smoking Tobacco? 15 Information not available 07/16/2022 Are You Passively Exposed To Smoke? Yes Information not available 10/26/2020 How Much Tobacco Do You Smoke? 1 PPD Smokes 1 1/2 Pack Daily Information not available 11/19/2022 Do You Feel Stressed (tense, Restless, Nervous, Or Anxious, Or Unable To Sleep At Night)? [id number] Information not available 10/26/2020 Do You Use Any Illicit Or Recreational Drugs? No Information not available 10/26/2020 Do You Use Sunscreen Routinely? No Information not available 01/15/2022 Has Tobacco Cessation Counseling Been Provided? Yes Information not available 08/20/2021 On What Date Was Tobacco Cessation Counseling Provided? 02/19/2024 Information not available 02/19/2024 How Many Years Have You Smoked Tobacco? 53 Information not available 08/21/2023 Do You Or Have You Ever Used Any Other Forms Of Tobacco Or Nicotine? No Information not available 10/26/2020 Sex: Male Functional Status Question Answer Note LastModified by Organization D etails LastModified Time Are you able to care for yourself? Yes Information n ot available 10/26/2020 Mental Status None recorded. Family History Relationship Description Onset Age of this Age Resolved Age Notes LastModified by Organization Details LastModified Time Mother Alcohol abuse [email or web address] Not available 2015 15:16:33 Mother Diabetes mellitus [email or web address] Not available 2015 15:16:33 Mother Heart disease [email or web address] Not available 2015 15:16:33 Mother Hypertensive disorder [email or web address] Not available 2015 15:16:33 Father Alcohol abuse [email or web address] Not available 2015 15:16:33 Sister Hypertensive disorder [email or web address] Not available 2015 15:16:33 Brother Hypertensive disorder [email or web address] Not available 2015 15:16:33 Medical History Condition Response High Blood Pressure Y Stroke Y COPD Y Asthma Y Immunizations Vaccine Type Date Status Note Provider Nam e and Address Organization Details Recorded Time Influenza, split virus, quadrivalent, preservative 8 completed Not Available [facility] 02/12/2022 22:01:02 Influenza, split virus, quadrivalent, preservative 9 completed Not Available [facility] 08/21/2023 11:12:24 Influenza, split virus, quadrivalent, preservative 0 completed Not Available [facility] 08/21/2023 11:12:24 COVID-19, mRNA, LNP-S, PF, 100 mcg/0.5mL dose or 50 mcg/0.25mL dose 1 completed CECILE MCKEE NP Attn: Accounting[address] [place], [address], [facility] 07/16/2022 12:34:00 Influenza, split virus, quadrivalent, preservative 11/15/202 1 completed Not Available [facility] 08/21/2023 11:12:24 pneumococcal polysaccharide PPV23 2 completed CECILE MCKEE, REED MAN Attn: Accounting[address] [facility], [place], [address], [place] [facility] 07/16/2022 12:34:00 Influenza, split virus, quadrivalent, preservative 5 completed CECILE MCKEE, REED MAN Attn: Accounting,[address] [facility], [place], [place], [address] [place] [address], [place] [facility] 07/16/2022 12:34:00 Influenza, split virus, quadrivalent, preservative 9 completed CECILE MCKEE, REED MAN Attn: Accounting,[address] [facility], [place], [address], [place] [facility] 07/16/2022 12:34:00 Tdap 8 completed CECILE MCKEE, REED MAN Attn: Accounting,[address] [facility], [place], [address], [place] [facility] 07/16/2022 12:34:00 Influenza, split virus, quadrivalent, PF 1 completed CECILE MCKEE, REED MAN Attn: Accounting,[address] [facility], [place], [address], [place] [facility] 07/16/2022 12:34:00 Influenza, split virus, quadrivalent, PF 0 completed CECILE MCKEE, REED MAN Attn: Accounting,[address] [facility], [place], [address], [place] [facility] 07/16/2022 12:34:00 Tdap 8 completed CECILE MCKEE, REED MAN Attn: Accounting,[address] [facility], [place], [address], [place] [facility] 07/16/2022 12:34:00 Influenza, adjuvanted, quadrivalent, PF 2 completed CECILE MCKEE, REED MAN Attn: Accounting,[address] [facility], [place], [address], [place] [facility] 07/16/2022 12:39:32 Influenza, high-dose, quadrivalent, PF 3 completed CECILE MCKEE, REED MAN Attn: Accounting,[address] [place], [place], [address] [place] [address], [place] [facility] 07/03/2023 11:18:46 Pneumococcal conjugate PCV20, polysaccharide [id number] conjugate, adjuvant, PF 3 completed CECILE MCKEE, REED MAN Attn: Accounting[address] [place], [address], [place] [facility] 07/03/2023 11:18:46 COVID-19, mRNA, LNP-S, PF, haritha-sucrose, 30 mcg/0.3 mL 3 completed CECILE MCKEE, REED MAN Attn: Accounting[address] [place], [place], [address] [place] [address], [place] [facility] 07/03/2023 11:18:46 COVID-19, mRNA, LNP-S, PF, 100 mcg/0.5mL dose or 50 mcg/0.25mL dose 1 completed Sarah Sandoval LPN null, [place] [facility] 11/03/2020 12:23:21 COVID-19, mRNA, LNP-S, PF, 100 mcg/0.5mL dose or 50 mcg/0.25mL dose 1 completed Ahmet Rodriguez [place], [place] [facility] 12/01/2020 16:10:47 Past Encounters Encounter ID Performer Location Encounter Start Date Encounter Closed Date Diagnosis/Indication Diagnosis SNOMED-CT Code Diagnosis ICD10 Code Diagnosis Note [id number] Tatianna Lindsay [facility] [address] [place] [address] 04/26/2015 10:05:11 04/26/2015 14:16:21 Chronic obstructive pulmonary disease 24671913 Essential hypertension 98504813 Tobacco user 442971691 Adult heal th examination 561359601 Screening for malignant neoplasm of prostate 344972494 Influenza vaccine needed 1140743436 [id number] Vineet Lindsay [facility] [address] [place] [address] 11/02/2015 10:18:01 11/02/2015 12:26:48 Dyspnea 749762585 R06.00 Chronic ob structive pulmonary disease 24154759 J44.9 Tobacco user 715594349 Z 72.0 [id number] Vineet Lindsay [facility] [address] [place] [address] 11/16/2015 15:08:14 11/17/2015 09:40:13 Dyspnea 158378866 R06.00 Chronic ob structive pulmonary disease 59472764 J44.9 Essential hypertension 61851075 I10 [id number] Vineet Lindsay [facility] [address] [place] [address] 03/13/2017 14:24:48 03/14/2017 10:04:56 Chronic obstructive pulmonary disease 00014264 J44.9 Tobacco user 323282205 Z 72.0 Essential hypertension 19900685 I10 Adult heal th examination 300186880 Z00.00 [id number] Lincoln Hollis MD [facility] [address] [place] [address] 08/19/2017 16:17:27 08/21/2017 11:22:41 Essential hypertension 32062674 I10 Blood gluc ose outside reference range 907580400 R73.09 Chronic ob structive pulmonary disease 04869788 J44.9 Hyperglycemia 06665610 R 73.9 Soft tissu e lesion of foot region 878656236 M79.9 Smoker 90180744 F17.275 [id number] LilliamNell Lindsay [facility] [address] [place] [address] 1 10/13/2017 14:01:00 10/14/2017 11:16:44 Chronic obstructive pulmonary disease 93946253 J44.9 Tobacco user 633372608 Z 72.0 Essential hypertension 81608494 I10 Well contr olled type 2 diabetes mellitus 563077157 E11.9 Serum crea tinine above reference range 096486045 R79.89 [id number] Vineet Anderson 14 IM 4 [facility] [address] [address] 02/04/2018 14:12:52 02/17/2018 09:42:19 Tobacco user 768340609 Z72.0 Chronic ob structive pulmonary disease 63114591 J44.9 Well contr olled type 2 diabetes mellitus 254802095 E11.9 Essential hypertension 47597617 I10 Pain in bi lateral legs 1667891132 1052957 M79.604 M79.586 [id number] Vineet Anderson 14 IM 4 [facility] [place] [address] 03/09/2018 13:34:57 03/11/2018 10:22:53 Feeling suicidal 619823075 R45.851 Recent hospitaliz ation at [place] Has f/u with psych gissel. Pain in bi lateral legs 3400592917 3816873 M79.604 M79.605 Has f/u with cardiology [id number] Vineet Anderson 14 IM 4 [facility] [place] [address] 04/01/2018 12:39:27 04/02/2018 14:54:46 Foot callus 213118378 L84 [id number] Vineet Anderson 14 IM 4 [facility] [place] [address] 06/17/2018 15:37:43 06/20/2018 11:14:15 Tobacco user 287886397 Z72.0 Chronic ob structive pulmonary disease 53713766 J44.9 Well contr olled type 2 diabetes mellitus 820735526 E11.9 Essential hypertension 24596787 I10 [id number] Vineet Anderson 14 IM 4 [facility] [place] [address] 10/13/2018 14:32:52 10/14/2018 09:24:56 Tobacco user 336581151 Z72.0 Chronic ob structive pulmonary disease 35135154 J44.9 Well contr olled type 2 diabetes mellitus 247716267 E11.9 Essential hypertension 84911507 I10 Preparatio n of medical certificate 508350003 Z02.79 Surgical clearance for cataract [id number] THU Atkinson 14 IM 4 [facility] [place] [address] 01/25/2019 10:51:18 01/26/2019 11:29:54 Tobacco user 849234321 Z72.0 Chronic ob structive pulmonary disease 37001647 J44.9 Well contr olled type 2 diabetes mellitus 228146343 E11.9 Essential hypertension 96991464 I10 Neuropathy 371779783 G62 .9 Pain in bi lateral lower legs 4247375831 0216820 M79.661 M79.899 [id number] THU Atkinson 14 IM 4 [facility] [place] [address] 03/11/2019 15:09:34 03/12/2019 12:24:54 Pain in bilateral lower legs 1056753878 0775227 M79.661 M79.662 Essential hypertension 98353569 I10 Acute exac erbation of chronic obstructive pulmonary disease 613898952 J44.1 Order nebulizer machine [id number] THU Atkinson 14 IM [address] [facility] [place] [address] 06/10/2019 14:11:23 06/11/2019 10:06:10 Tobacco user 563104073 Z72.0 Chronic ob structive pulmonary disease 43463585 J44.9 Well contr olled type 2 diabetes mellitus 567084061 E11.9 Essential hypertension 26091608 I10 Neuropathy 551539192 G62 .9 [id number] Vineet Anderson 14 IM [address] [facility] [place] [address] 10/27/2019 08:02:43 10/28/2019 14:24:19 Tobacco user 210308214 Z72.0 Chronic ob structive pulmonary disease 29828206 J44.9 Neuropathy 517503336 G62 .9 Type 2 dinorah betes mellitus 13244049 E11.9 Essential hypertension 20595425 I10 Insomnia 847577478 G47.0 0 Peripheral vascular disease 474486316 I73.9 [id number] Vineet Anderson 14 IM [address] [facility] [place] [address] 01/26/2020 09:21:05 01/31/2020 17:16:46 Tobacco user 878189610 Z72.0 Chronic ob structive pulmonary disease 69080629 J44.9 Insomnia 726941579 G47.0 0 Neuropathy 652871325 G62 .9 Type 2 dinorah betes mellitus 15147157 E11.9 Essential hypertension 00335214 I10 [id number] THU Atkinson 14 IM [address] [facility] [place] [address] 06/08/2020 14:59:58 06/09/2020 21:02:34 Tobacco user 481510490 Z72.0 Chronic ob structive pulmonary disease 39619567 J44.9 Insomnia 296760015 G47.0 0 Neuropathy 675908137 G62 .9 Peripheral vascular disease 583755620 I73.9 Type 2 dinorah betes mellitus 94545979 E11.9 Essential hypertension 41626780 I10 Screening for malignant neoplasm of colon 635048409 Z12.11 [id number] [facility] [address] [place] [address] 10/26/2020 10:35:42 10/30/2020 14:39:24 Essential hypertension 04207628 I10 - b/p in office today 158/100 - Continue medication as prescribed and diet/exerc ise as previously discussed. - Take occasional BP s, call if consistent ly >140/90. - Discussed reasons for sooner f/u than months. - Patient verbalizes understand ing. Type 2 dinorah betes mellitus 87766140 E11.21 - Educated on goal of blood sugars (A1C of 7% and fasting of 80-130) and informatio n below. Postprandi al BG of less than 180. - Encouraged weight loss and diet changes. - Monitor BP with goal of <130/80. - Stop smoking. - Continue statin and next level due {{3 months 6 months* 1 year}} - Eye exam yearly and dentist regularly. - Next A1C due {{1 month 2 months 3 months * 6 months}} - Next microalbum in due {{2 months 3 months 6 months 9 months 1 year*}} - RTC or call if blood sugars not controlled . - Check feet daily and notify PCP immediatel y of abnormalit y. - F/U in {{1 week 2 weeks 1 month 3 months * 6 months}} Tobacco user 655354407 Z 72.0 - Patient is a current cigarette smoker, states he smokes 1 pk per day and currently has no desire to quit. - Patient advised in the derogatory effects of smoking - Counseling for smoking cessation completed Screening for malignant neoplasm of prostate 599680533 Z12.5 Chronic ob structive pulmonary disease 11066531 J44.9 - Encouraged and educated on the importance of pneumonia and influenza vaccinatio n. - Encouraged good pulmonary hygiene. Patient to notify provider if condition worsens or report immediatel y to ED with respirator y distress. - RTC in 3 months. (unstable 1 month) [id number] EDEN Henning 14 IM 4 [facility] [place] [address] 11/03/2020 11:14:51 11/04/2020 11:11:19 Administration of SARS-CoV-2 antigen vaccine 377905275 Z23 [id number] CECILE MCKEE NP [facility] [address] [place] [address] 11/16/2020 11:38:47 11/17/2020 14:23:23 Complaining of erectile dysfunction 910715671 N52.9 Essential hypertension 49107285 I10 - b/p in office today - Continue medication as prescribed and diet/exerc ise as previously discussed. - Take occasional BP s, call if consistent ly >140/90. - Discussed reasons for sooner f/u than months. - Patient verbalizes understand ing. Chronic ob structive pulmonary disease 45854542 J44.9 - Encouraged and educated on the importance of pneumonia and influenza vaccinatio n. - Encouraged good pulmonary hygiene. Patient to notify provider if condition worsens or report immediatel y to ED with respirator y distress. - RTC in 3 months. (unstable 1 month) [id number] Maddi Zambrano LPN [facility] [address] [place] [address] 12/01/2020 15:54:01 12/18/2020 15:34:43 Administration of SARS-CoV-2 antigen vaccine 364805386 Z23 [id number] MILY DAMONn 14 IM 4 [facility] Dr [address] [place] [address] 03/12/2021 11:39:24 03/19/2021 15:36:34 Essential hypertension 33038980 I10 - b/p in office today , patient states he had not taken his medication . - Continue medication as prescribed and diet/exerc ise as previously discussed. - Take occasional BP s, call if consistent ly >140/90. - Discussed reasons for sooner f/u than months. - Patient verbalizes understand ing. Serum thyr oid stimulating hormone level outside reference range 489067038 R79.89 Renewal of prescription 320738676 Z76.0 [id number] CECILE MCKEE NP Justin 14 IM 4 [facility] [address] [place] [address] 08/20/2021 11:40:17 08/23/2021 13:13:04 Essential hypertension 90704306 I10 - b/p in office today 130/78 - Continue medication as prescribed and diet/exerc ise as previously discussed. - Take occasional BP s, call if consistent ly >140/90. - Discussed reasons for sooner f/u than months. - Patient verbalizes understand ing. Well contr olled type 2 diabetes mellitus 290250927 E11.9 - Educated on goal of blood sugars (A1C of 7% and fasting of 80-130) and informatio n below. Postprandi al BG of less than 180.- Encouraged weight loss and diet changes.- Monitor BP with goal of <130/80.- Stop smoking.- Eye exam yearly and dentist regularly. - Next A1C due {{2 months 3 months 6 months* 9 months 1 year}}- RTC or call if blood sugars not controlled .- Check feet daily and notify PCP immediatel y of abnormalit y.- Take ASA daily.F/U in {{1 week 2 weeks 1 month 3 months 6 months*}} Tobacco user 526372958 Z 72.0 - Patient is a current cigarette smoker, states he smokes 1/4 pk per day and currently has no desire to quit. - Patient advised in the derogatory effects of smoking - Counseling for smoking cessation completed Administra tion of pneumococcal vaccine 85571159 Z23 - recommende d annual pneumococc al vaccinatio n Chronic ob structive pulmonary disease 80370805 J44.9 - Encouraged and educated on the importance of pneumonia and influenza vaccinatio n. - Encouraged good pulmonary hygiene. Patient to notify provider if condition worsens or report immediatel y to ED with respirator y distress. - RTC in 3 months. (unstable 1 month) [id number] CECILE MCKEE NP [facility] [address] [place] [address] 10/18/2021 10:05:10 10/23/2021 11:14:29 Pre-surgery evaluation 590924310 Z01.818 - Scheduled for [facility] on 11/[address] Waters Chronic ob structive pulmonary disease 31783110 J44.9 - Encouraged and educated on the importance of pneumonia and influenza vaccinatio n. - Encouraged good pulmonary hygiene. Patient to notify provider if condition worsens or report immediatel y to ED with respirator y distress. - RTC in 3 months. (unstable 1 month) Tobacco user 502630564 Z 72.0 - Patient is a current cigarette smoker, states he smokes 1/4 pk per day and currently has no desire to quit. - Patient advised in the derogatory effects of smoking - Counseling for smoking cessation completed [id number] DEANDRE GARCIA NP [facility] (Adult Med) [address] [place] [address] 03/15/2022 14:36:11 03/18/2022 12:01:54 Chronic obstructive pulmonary disease 57571835 J44.9 MDI [facility] Lu pickering, 6 min walk Dyspnea on exertion 6084 5006 R06.09 Echo, r/o PHTN Body mass index 30+ - obesity 227309884 Z68.32 Nicotine dependence 5629 4008 Z87.891 down to 5 cigarettes a day for past 4 months1/2 ppd for 50 years, 25 PYH Snoring 19396575 R06.83 Overnight oximetry study pending, may need sleep study Essential hypertension 58779585 I10 [id number] CECILE MCKEE NP [facility] [address] [place] [address] 01/15/2022 11:19:53 01/16/2022 11:29:57 Essential hypertension 13211461 I10 - b/p in office today 128/72 - Continue medication as prescribed and diet/exerc ise as previously discussed. - Take occasional BP s, call if consistent ly >140/90. - Discussed reasons for sooner f/u than months. - Patient verbalizes understand ing. Type 2 dinorah betes mellitus 78807893 E11.21 - Educated on goal of blood sugars (A1C of 7% and fasting of 80-130) and informatio n below. Postprandi al BG of less than 180. - Encouraged weight loss and diet changes. - Monitor BP with goal of <130/80. - Stop smoking. - Continue statin and next level due {{3 months 6 months* 1 year}} - Eye exam yearly and dentist regularly. - Next A1C due {{1 month 2 months 3 months 6 months*}} - Next microalbum in due {{2 months 3 months 6 months 9 months 1 year*}} - RTC or call if blood sugars not controlled . - Check feet daily and notify PCP immediatel y of abnormalit y. - F/U in {{1 week 2 weeks 1 month 3 months 6 months*}} Tobacco user 305483104 Z 72.0 - Patient is a current cigarette smoker, states he smokes 1/4 pk per day and currently has no desire to quit. - Patient advised in the derogatory effects of smoking - Counseling for smoking cessation completed Body mass index 30+ - obesity 289554897 Z68.31 advised low fat, low cholestero l, low carb diet, regular exercise and weight reduction. Positive s creening for depression on PHQ-9 (Patient Health Questionnaire 9) 5166155787 60439 Z13.89 - Discussed symptoms of depression /anxiety as well as the different treatment types.- All questions and concerns were addressed. - Pt is to monitor symptoms and RTC sooner if symptoms are worsening or not improving. [id number] CECILE MCKEE NP [facility] [address] [place] [address] 07/16/2022 12:07:46 07/17/2022 14:49:46 Essential hypertension 68610195 I10 - b/p in office today 148/86. Patient states he has not been taking Lisinopril . - Continue medication as prescribed and diet/exerc ise as previously discussed. - Take occasional BP s, call if consistent ly >140/90. - Discussed reasons for sooner f/u than months. - Patient verbalizes understand ing. Tobacco user 705368725 Z 72.0 - Patient is a current cigarette smoker, states he smokes 1/4 pk per day and currently has no desire to quit. - Patient advised in the derogatory effects of smoking - Counseling for smoking cessation completed Obesity 671057414 E66.9 advised low fat, low cholestero l, low carb diet, regular exercise and weight reduction. Type 2 dinorah betes mellitus 57265297 E11.21 - Educated on goal of blood sugars (A1C of 7% and fasting of 80-130) and informatio n below. Postprandi al BG of less than 180. - Encouraged weight loss and diet changes. - Monitor BP with goal of <130/80. - Stop smoking. - Continue statin and next level due {{3 months 6 months* 1 year}} - Eye exam yearly and dentist regularly. - Next A1C due {{1 month 2 months 3 months 6 months*}} - Next microalbum in due {{2 months 3 months 6 months 9 months 1 year*}} - RTC or call if blood sugars not controlled . - Check feet daily and notify PCP immediatel y of abnormalit y. - F/U in {{1 week 2 weeks 1 month 3 months 6 months*}} Renewal of prescription 595715935 Z76.0 [id number] Lincoln Hollis MD [facility] [address] [place] [address] 09/02/2022 10:40:43 09/04/2022 09:44:15 Tobacco user 685532451 Z72.0 - Patient is a current cigarette smoker, states he smokes 1/4 pk per day and currently has no desire to quit. - Patient advised in the derogatory effects of smoking - Counseling for smoking cessation completed Essential hypertension 14267842 I10 - b/p in office today 148/86. Patient states he has not been taking Lisinopril . - Continue medication as prescribed and diet/exerc ise as previously discussed. - Take occasional BP s, call if consistent ly >140/90. - Discussed reasons for sooner f/u than months. - Patient verbalizes understand ing. Dizziness 461988414 R42 - Patient reports improvemen t of dizzy spells after he eats sugar.- Patient encourage to check blood sugar and blood pressure the next time he has an episode of dizziness. VU.- RTC for new or worsening symptoms. Type 2 dinorah betes mellitus 50392915 E11.21 - Educated on goal of blood sugars (A1C of 7% and fasting of 80-130) and informatio n below. Postprandi al BG of less than 180. - Encouraged weight loss and diet changes. - Monitor BP with goal of <130/80. - Stop smoking. - Continue statin and next level due {{3 months 6 months* 1 year}} - Eye exam yearly and dentist regularly. - Next A1C due {{1 month 2 months 3 months 6 months*}} - Next microalbum in due {{2 months 3 months 6 months 9 months 1 year*}} - RTC or call if blood sugars not controlled . - Check feet daily and notify PCP immediatel y of abnormalit y. - F/U in {{1 week 2 weeks 1 month 3 months 6 months*}} [id number] CECILE MCKEE NP [facility] [address] [place] [address] 09/18/2022 15:06:47 09/19/2022 09:55:38 Essential hypertension 67799351 I10 - b/p in office today 161/92 - Continue medication as prescribed and diet/exerc ise as previously discussed. - Take occasional BP s, call if consistent ly >140/90. - Discussed reasons for sooner f/u than months. - Patient verbalizes understand ing. History of syncope 41117 70628 51946 Z86.79 - r/o cardiac etiology Hemiparesis 44489027 G81 .91 - Patient advised to present to ER to r/o CVA [id number] [facility] (Adult Med) [address] [place] [address] 10/30/2022 11:50:21 10/31/2022 09:15:42 Chronic obstructive pulmonary disease 66827560 J44.9 StableMDI [facility] buterol, nebsRefill Symbicort 160 mcg Nicotine dependence 5629 4008 Z87.891 1/2 ppd for 50 years, 25 PYHWill order LDCT, lung cancer screening. Discussed risk/benef its, importance of annual screening adherence, and smoking cessation. Body mass index 30+ - obesity 960393296 Z68.32 Essential hypertension 01074069 I10 Controlled [id number] CECILE MCKEE NP [facility] [address] [place] [address] 11/19/2022 11:05:52 11/20/2022 11:02:15 Essential hypertension 42229440 I10 - b/p in office today 150/73 - Continue medication as prescribed and diet/exerc ise as previously discussed. - Take occasional BP s, call if consistent ly >140/90. - Discussed reasons for sooner f/u than months. - Patient verbalizes understand ing. Tobacco user 123749645 Z 72.0 - Patient is a current cigarette smoker, states he smokes 1.5 pk per day and currently has no desire to quit. - Patient advised in the derogatory effects of smoking - Counseling for smoking cessation completed Type 2 dinorah betes mellitus 88969172 E11.21 - Educated on goal of blood sugars (A1C of 7% and fasting of 80-130) and informatio n below. Postprandi al BG of less than 180. - Encouraged weight loss and diet changes. - Monitor BP with goal of <130/80. - Stop smoking. - Continue statin and next level due {{3 months 6 months* 1 year}} - Eye exam yearly and dentist regularly. - Next A1C due {{1 month 2 months 3 months 6 months*}} - Next microalbum in due {{2 months 3 months 6 months 9 months 1 year*}} - RTC or call if blood sugars not controlled . - Check feet daily and notify PCP immediatel y of abnormalit y. - F/U in {{1 week 2 weeks 1 month 3 months 6 months*}} Cerebrovas cular accident [id number] I63.9 - Bettye, the patient's niece, reports that the patient has an appointmen t with a neurologis t on 12/21/2022 but cannot recollect the name. [id number] CECILE MCKEE NP [facility] [address] [place] [address] 12/31/2022 11:05:21 01/03/2023 14:55:02 Essential hypertension [id number] I10 - b/p in office today 151/82 - Continue medication as prescribed and diet/exerc ise as previously discussed. - Take occasional BP s, call if consistent ly >140/90. - Discussed reasons for sooner f/u than 6 months. - Patient verbalizes understand ing. Type 2 dinorah betes mellitus 14274140 E11.21 - Educated on goal of blood sugars (A1C of 7% and fasting of 80-130) and informatio n below. Postprandi al BG of less than 180. - Encouraged weight loss and diet changes. - Monitor BP with goal of <130/80. - Stop smoking. - Continue statin and next level due {{3 months 6 months* 1 year}} - Eye exam yearly and dentist regularly. - Next A1C due {{1 month 2 months 3 months 6 months*}} - Next microalbum in due {{2 months 3 months 6 months 9 months 1 year*}} - RTC or call if blood sugars not controlled . - Check feet daily and notify PCP immediatel y of abnormalit y. - F/U in {{1 week 2 weeks 1 month 3 months 6 months*}} Cerebrovas cular accident [id number] I63.9 - Bettye golden reports patient needs assistance with (cooking, dressing, cleaning) Upper resp iratory infection 46042554 J06.9 [id number] CECILE MCKEE NP [facility] [address] [place] [address] 07/03/2023 11:06:35 07/29/2023 14:05:51 Chronic obstructive pulmonary disease 11108301 J44.9 - Encouraged and educated on the importance of pneumonia and influenza vaccinatio n. - Encouraged good pulmonary hygiene. Patient to notify provider if condition worsens or report immediatel y to ED with respirator y distress. - RTC in 3 months. (unstable 1 month) Essential hypertension 56997790 I10 - b/p in office today 138/84 - Continue medication as prescribed and diet/exerc ise as previously discussed. - Take occasional BP s, call if consistent ly >140/90. - Discussed reasons for sooner f/u than 6 months. - Patient verbalizes understand ing. Type 2 dinorah betes mellitus 14246953 E11.21 - Educated on goal of blood sugars (A1C of 7% and fasting of 80-130) and informatio n below. Postprandi al BG of less than 180. - Encouraged weight loss and diet changes. - Monitor BP with goal of <130/80. - Stop smoking. - Continue statin and next level due {{3 months 6 months* 1 year}} - Eye exam yearly and dentist regularly. - Next A1C due {{1 month 2 months 3 months 6 months*}} - Next microalbum in due {{2 months 3 months 6 months 9 months 1 year*}} - RTC or call if blood sugars not controlled . - Check feet daily and notify PCP immediatel y of abnormalit y. - F/U in {{1 week 2 weeks 1 month 3 months 6 months*}} Tobacco user [id number] Z 72.0 - Patient is a current cigarette smoker, states he smokes 1.5 pk per day and currently has no desire to quit. - Patient advised in the derogatory effects of smoking - Counseling for smoking cessation completed [id number] CECILE MCKEE NP [facility] [address] [place] [address] 08/21/2023 10:53:19 08/28/2023 16:08:48 Essential hypertension 52117257 I10 - b/p in office today 138/84 - Continue medication as prescribed and diet/exerc ise as previously discussed. - Take occasional BP s, call if consistent ly >140/90. - Discussed reasons for sooner f/u than 6 months. - Patient verbalizes understand ing. Type 2 dinorah betes mellitus 61831425 E11.21 - Educated on goal of blood sugars (A1C of 7% and fasting of 80-130) and informatio n below. Postprandi al BG of less than 180. - Encouraged weight loss and diet changes. - Monitor BP with goal of <130/80. - Stop smoking. - Continue statin and next level due {{3 months 6 months* 1 year}} - Eye exam yearly and dentist regularly. - Next A1C due {{1 month 2 months 3 months 6 months*}} - Next microalbum in due {{2 months 3 months 6 months 9 months 1 year*}} - RTC or call if blood sugars not controlled . - Check feet daily and notify PCP immediatel y of abnormalit y. - F/U in {{1 week 2 weeks 1 month 3 months 6 months*}} Cerebrovas cular accident [id number] I63.9 - Bettye niece reports patient needs assistance with (cooking, dressing, cleaning) Tobacco user [id number] Z 72.0 - Patient is a current cigarette smoker, states he smokes 1.5 pk per day and currently has no desire to quit. - Patient advised in the derogatory effects of smoking - Counseling for smoking cessation completed Chronic ob structive pulmonary disease 02616711 J44.9 - Encouraged and educated on the importance of pneumonia and influenza vaccinatio n. - Encouraged good pulmonary hygiene. Patient to notify provider if condition worsens or report immediatel y to ED with respirator y distress. - RTC in 3 months. (unstable 1 month) [id number] Rajni Jordan MD [facility] [address] [place] [address] 10/27/2023 09:12:41 10/29/2023 16:10:28 Chronic bronchitis 60392292 J42 I will check PFTs, 6MWT, CBC and IgE Pulmonary emphysema 8743 3001 J43.9 I will add Symbicort to Albuterol and give steroids and doxy Sleep disorder 99235836 G47.9 I will check Split sleep study Nicotine dependence 5629 4008 F17.200 30 PYH, I will check LDCT [id number] CECILE MCKEE NP [facility] [address] [place] [address] 12/18/2023 10:31:00 12/23/2023 16:01:46 Tobacco user 197688834 Z72.0 - Patient is a current cigarette smoker, states he smokes 1.5 pk per day and currently has no desire to quit. - Patient advised in the derogatory effects of smoking - Counseling for smoking cessation completed Essential hypertension 56390179 I10 - b/p in office today 115/70 - Continue medication as prescribed and diet/exerc ise as previously discussed. - Take occasional BP s, call if consistent ly >140/90. - Discussed reasons for sooner f/u than 6 months. - Patient verbalizes understand ing. Type 2 dinorah betes mellitus 79912899 E11.21 - Educated on goal of blood sugars (A1C of 7% and fasting of 80-130) and informatio n below. Postprandi al BG of less than 180. - Encouraged weight loss and diet changes. - Monitor BP with goal of <130/80. - Stop smoking. - Continue statin and next level due {{3 months 6 months* 1 year}} - Eye exam yearly and dentist regularly. - Next A1C due {{1 month 2 months 3 months 6 months*}} - Next microalbum in due {{2 months 3 months 6 months 9 months 1 year*}} - RTC or call if blood sugars not controlled . - Check feet daily and notify PCP immediatel y of abnormalit y. - F/U in {{1 week 2 weeks 1 month 3 months 6 months*}} Screening for malignant neoplasm of prostate 900286476 Z12.5 Obesity 995637882 E66.9 advised low fat, low cholestero l, low carb diet, regular exercise and weight reduction. History of polyp of colon 717241436 Z86.010 - 5 mm polyp removed 07/2020, repeat colonoscop y was recommende d at 5 years Adult [facility] th examination 134183317 Z00.00 Health Risk Assessment collected and reviewed Hyperlipidemia 71025419 E78.5 [id number] CECILE MCKEE NP [facility] [address] [place] [address] 01/20/2024 10:06:28 01/26/2024 13:40:47 Depressive disorder 81050291 F32.A Chronic ob structive pulmonary disease 99019504 J44.9 - Encouraged and educated on the importance of pneumonia and influenza vaccinatio n. - Encouraged good pulmonary hygiene. Patient to notify provider if condition worsens or report immediatel y to ED with respirator y distress. - RTC in 3 months. (unstable 1 month) [id number] CECILE MCKEE NP [facility] [address] [place] [address] 02/19/2024 11:56:39 02/23/2024 09:55:15 Type 2 diabetes mellitus 70521358 E11.21 - Educated on goal of blood sugars (A1C of 7% and fasting of 80-130) and informatio n below. Postprandi al BG of less than 180. - Encouraged weight loss and diet changes. - Monitor BP with goal of <130/80. - Stop smoking. - Continue statin and next level due {{3 months 6 months* 1 year}} - Eye exam yearly and dentist regularly. - Next A1C due {{1 month 2 months 3 months 6 months*}} - Next microalbum in due {{2 months 3 months 6 months 9 months 1 year*}} - RTC or call if blood sugars not controlled . - Check feet daily and notify PCP immediatel y of abnormalit y. - F/U in {{1 week 2 weeks 1 month 3 months 6 months*}} Essential hypertension 37159611 I10 - b/p in office today 147/84, repeat pressure 131/82 - Continue medication as prescribed and diet/exerc ise as previously discussed. - Take occasional BP s, call if consistent ly >140/90. - Discussed reasons for sooner f/u than 4 months. - Patient verbalizes understand ing. Depressive disorder 9241 1794 F32.A - Discussed symptoms of depression /anxiety as well as the different treatment types.- Pt to started on Hydroxyzin e daily as directed.- Encouraged psychother apy in adjunct with medication therapy,.- All questions and concerns were addressed. - Pt to take meds as directed.- Pt is to monitor symptoms and RTC sooner if symptoms are worsening or not improving. Infection of tooth 54103 8007 K04.7 - Apply ice/cold pack on the outside of cheek for 10 to 20 minutes at a time to reduce pain and face swelling in face and jaw- Take the full course of antibiotic s as prescribed , even if you are feeling better- Take pain reliever in conjuction with anbx to help with pain- Do not smoke or vape with nicotine.- Schedule appointmen t with dentist- RTC if you have new or worse symptoms of infection Health Concerns Section Related Observation LastModified by Organization Detai ls LastModified Time None Recorded Concern Status LastModified by Organization Details LastModified Time None Recorded Advance Directives Directive N: Payers Encounter Date Sequence Insurance Name Policy Number Policy Pal[place] Covered Member ID Pal[place] Member ID Guarantor Name 08/21/2023 1 [facility] ON OR AFTER 07/28/2020 - DUAL ELIGIBLE (MEDICARE REPLACEMENT/AD VANTAGE - HMO) [id number] Philip Barron [id number] Philip Barron 10/27/2023 2 [place] WHEN MEDICARE OR MEDICARE REPLACEMENT PRIMARY) Philip Barron [id number] Philip Barron 10/27/2023 1 [facility] - DOS ON OR AFTER 2020 - DUAL ELIGIBLE (MEDICARE REPLACEMENT/AD VANTAGE - HMO) [id number] Philip Barron [id number] Philip Barron 12/18/2023 1 [facility] - DOS ON OR AFTER 2020 - DUAL ELIGIBLE (MEDICARE REPLACEMENT/AD VANTAGE - HMO) [id number] Philip Barron [id number] Philip Barron 01/20/2024 1 [facility] - DOS ON OR AFTER 2020 - DUAL ELIGIBLE (MEDICARE REPLACEMENT/AD VANTAGE - HMO) [id number] Philip Barron [id number] Philip Barron 02/19/2024 1 [facility] - DOS ON OR AFTER 2020 - DUAL ELIGIBLE (MEDICARE REPLACEMENT/AD VANTAGE - HMO) [id number] Philip Barron [id number] Philip Barron Notes Date Note Type Note Provider Name and Address Organization Details Recorded Time 08/21/2023 text/html Diabetes F/UReported bypatient.Labs:last A1C result: 7.0 (07/03/23)Hypertens ion F/UReported bypatient.Associate d Symptoms:no dizziness; no lightheadedness; no chest pain; no shortness of breath; no palpitations Medications:taking medications as directed CECILE MCKEE NP Attn: [employer],[address] [place], [address], [facility] 08/23/2023 13:18:13 10/27/2023 text/html Patient is here for evaluation of SOB. He has 30 PYH of smoking. He lives in [facility], He's up to date with COVID-19 vaccine. He has history of wheezing, cough and exertional dyspnea. he sleeps OK. Rajni Jordan MD [address] [place], [address], [facility] 10/27/2023 10:47:07 12/18/2023 text/html Diabetes F/UReported bypatient.Labs:last A1C result: 7.0Hypertension F/UReported bypatient.Associate d Symptoms:no dizziness; no lightheadedness; no chest pain; no shortness of breath; no palpitations; no edema Medications:taking medications as directed; no side effects from medicationMAW 2Reported bypatient.Diet and Nutrition:healthy diet Fracture Risk:no history of fractures; no sudden unexplained fractures Concentration and Memory:decreased concentrating ability;memory lapses or loss;forgetting words Speech/Motor difficulties:speech difficulties;diffic ulty expressing formulated concepts;difficulty writing/copying;kno cking things over when trying to pick them up Hearing:no loss of hearing Vision:worsening;bl urred vision Activities of Daily Living:able to bathe with limited or no assistance; able to contol urination and bowels; able to toilet with limited or no assistance;unable to dress without assistance;unable to feed self without assistance;unable to get out of chair or bed without assistance;unable to groom without assistance Instrumental Activities of Daily Living:unable to do house work without assistance;unable to grocery shop without assistance;unable to manage medications without assistance;unable to to prepare meals without assistance Falls Risk Assessment:no dizziness/vertigo; fall(s) in the past year 1 Home Safety:no unsafe marcos hazzards; working smoke/CO detectors; no fire arms; has hand bars in the bathroom/shower; good lighting in the home Mr. Barron presented in the office today accompanied by caregiver for follow up appointment and Medicare wellness exam. CECILE MCKEE NP Attn: [facility],[address] [place], [address], [facility] 12/20/2023 19:57:42 01/20/2024 text/html Mr. Barron arrived in the office today, accompanied by caregiver, for a [id number] appointment regarding the need for a powered wheelchair to assist with mobility. CECILE MCKEE NP Attn: [facility],[address] [place], [address], [facility] 01/22/2024 14:43:52 02/19/2024 text/html Anxiety/Depressi onR eported bypatient.Quality:s ymptoms improved Severity:denies suicidal ideations Duration:stablizing Diabetes F/UReported bypatient.Labs:last A1C result: 7.0 (07/03/2023)Hyperte nsion F/UReported bypatient.Associate d Symptoms:no dizziness; no lightheadedness; no chest pain; no shortness of breath; no palpitations; no edema Medications:taking medications as directed; no side effects from medication Mr. Barron presented in office today for follow up appointment. Patient complaining of tooth pain since last visit. CECILE MCKEE NP Attn: [employer],[address] [place], [address], [facility] 02/22/2024 23:37:17
--- OUTSIDE RECORDS SUMMARY | 2024-09-07 15:34 | XMS_ITS | Encounter Summary ---
Author Organization [facility] Address [address] [place] [address] [place] [address] Care Team Providers Care Windows Migration Technician Name Role Phone Unknown, Provider Primary Care Provider Unavaila ble Reason for Visit * Reason Comments Refill Request Encounter Details Date Type Department Care Team (Late st Contact Info) Description 10/14/2018 Refill [facility] [address] [facility] [address] [place] [address] Nava Morgan MD [address] [place] [address] Refill Request Social History Tobacco Use Types Packs/Day Years Used Date Smoking Tobacco: Every Day Cigarettes 0.5 35 Smokeless Tobacco: Never Alcohol Use Standard Drinks/Week Comments No 0 (1 standard drink = 0.6 oz pur e alcohol) Sex and Gender Information Value Date Recorded Sex Assigned at Not on file Gender Identity Male 09/11/2020 8:16 AM RESEARCH NURSE Sexual Orientation Not on file documented as of this encounter Plan of Treatment Not on file documented as of this encounter Visit Diagnoses Not on filedocumented in this encounter Additional Health Concerns Infection Onset Date Last Indicated Resolved Time COVID-19 Under Investigation 09/10/2020 09/10/2020 09/10/2020 9:39 PM RESEARCH NURSE documented as of this encounter Care Teams Windows Migration Technician Relationship Specialty Start Date End Date Unknown, Provider PCP - General 01/01/18 documented as of this encounter
--- OUTSIDE RECORDS SUMMARY | 2024-09-07 15:34 | XMS_ITS | Encounter Summary ---
Author Organization [facility] Address [address] [place] [address] Phone Care Team Providers Care Information Technology Assistant Name Role Phone Xander, Cecile Godinez APRN, SHARI Primary Care Provider Reason for Visit * Reason Onset Date Comments Appointment 04/01/2024 Encounter Details Date Type Department Care Team (Late st Contact Info) Description [facility]/01[facility]2024 [facility] [address], [address] [place] [id number] Carlos Patino PTA [place] Appointment Social History Tobacco Use Types Packs/Day Years [...] on file documented as of this encounter Miscellaneous Notes * Telephone Encounter - Carlos Patino PTA - 04/01/2024 9:26 AM CDT ----- Message from Diana sent at 04/01/2024 8:50 AM CDT ----- Regarding: cdx sick from covid and flu vaccine documented in this encounter Plan of Treatment Not on file documented as of this encounter Visit Diagnoses Not on filedocumented in this encounter Care Teams Information Technology Assistant Relationship Specialty Start Date End Date Cecile Terrell, HAND MOLDER, CORPORATE COMPLIANCE DIRECTOR [address] [place] [address] PCP - General Advanced Practice Nurse 04/22/22 documented as of this encounter
--- OUTSIDE RECORDS SUMMARY | 2024-09-07 15:34 | XMS_ITS | Patient Health Summary ---
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 measuring 68%. 2. 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 I, Dr. Sarwat Lanza, was present and performed/supervised theentire procedure. Moderate sedation on this adult patient was ordered by me, administered intravenously in my presence, and monitored by [facility] as an independent trained observer who was present throughout the procedure. The following parameters were monitored: oxygen saturation, heart rate, blood pressure, and response to care. For details on pre-moderate sedation and post-moderate sedation patient evaluation,please review the evaluation forms in [facility]. For details on monitored clinical parameters during the intra-service sedation time, please review the procedure nurse documentation in [facility]. ISarwat MD have personally reviewed and interpreted this examination/study. > Interpreting Provider: Sarwat Lanza MD on 12/18/2022 11:21 AM Sarwat Lanza MD IR ORDERABLES * (ABNORMAL) GLUCOSE - POINT OF CARE (12/16/2022 8:49 AM CDT) Only the most recent of16 resultswithin the time period is included. Glucose WB/POC 140(H) 70 - 115 mg/dL 12/16/2022 1:50 PM CDT [facility] Specimen Type Cap Fingerstick 2022 1:50 PM CDT [facility] Blood BLOOD SPECIMEN / Unknown 12/16/2022 8:49 AM CDT 12/16/2022 1:50 PM CDT Sarwat Lanza MD LAB - POINT OF CARE ORDERABLES Performing Organization Address [facility] Co de Phone Number [address] [phone], [facility] [phone] * PT-INR [facility] (12/16/2022 8:35 AM CDT) Only the most recent of2 resultswithin the time period is included. PT 14.4 12.1 - 14.8 Seconds 12/16/2022 9:26 AM CDT [facility] INR 1.1 See Comment 12/16/2022 9:26 AM T [facility] Comment:The suggested therap eutic range for standard coumadin (warfarin) therapy is an INR of 2.0-3.0. For high-risk patients (Mechanical Mitral Valve Prosthesis, etc.), the suggested prophylactic therapeutic range is an INR of 2.5-3.5. Blood BLOOD SPECIMEN / Unknown Venipuncture / Unknown 12/16/2022 8:35 AM CDT 12/16/2022 9:02 AM CDT Fanta Grubbs PA-C LAB - COAGULATION ORDERABLES Performing Organization Address [facility]/ZIP Co de Phone Number [address] [phone], [facility] [phone] * (ABNORMAL) CBC W AUTO DIFFERENTIAL (12/16/2022 8:35 AM CDT) Only the most recent of5 resultswithin the time period is included. WBC 7.6 3.5 - 10.5 10 3/uL 12/16/2022 9:06 AM CDT [facility] RBC 4.53 4.30 - 5.70 10 6/uL 12/16/2022 9:06 AM [facility] Hemoglobin 12.9 12.0 - 17.6 g/dL 12/16/2022 9:06 AM [facility] Hematocrit 40.6 35.2 - 51.7 % 12/16/2022 9:06 AM [facility] MCV 89.6 80.7 - 98.3 fL 12/16/2022 9:06 AM [facility] MCH 28.5 26.7 - 34.0 pg 12/16/2022 9:06 AM [facility] MCHC 31.8 30.8 - 35.9 g/dL 12/16/2022 9:06 AM [facility] RDW-SD 46.0 36.0 - 50.0 fL 12/16/2022 9:06 AM [facility] RDW-CV 14.0 11.2 - 14.8 % 12/16/2022 9:06 AM [facility] Platelet Count 214 150 - 400 10 3/uL 12/16/2022 9:06 AM [facility] MPV 10.5 9.4 - 12.9 fL 12/16/2022 9:06 AM [facility] nRBC Absolute 0.00 0 10 3/uL 12/16/2022 9:06 AM [facility] nRBC Auto 0.0 0 /100 WBC 12/16/2022 9:06 AM [facility] Neutrophils % 70.7(H) 35.0 - 70.0 % 12/16/2022 9:06 AM [facility] Lymphocytes % 19.7(L) 20.0 - 43.0 % 12/16/2022 9:06 AM [facility] Monocytes % 6.4 5.0 - 13.0 % 12/16/2022 9:06 AM [facility] Eosinophils % 2.1 0.0 - 6.0 % 12/16/2022 9:06 AM [facility] Basophil % 0.4 0.0 - 2.0 % 12/16/2022 9:06 AM [facility] Neutrophils Absolute 5.39 1.60 - 7.00 10 3/uL 12/16/2022 9:06 AM [facility] Lymphocyte Absolute 1.50 1.10 - 3.90 10 3/uL 12/16/2022 9:06 AM [facility] Monocytes Absolute 0.49 0.26 - 1.07 10 3/uL 12/16/2022 9:06 AM [facility] Eosinophils Absolute 0.16 0.00 - 0.47 10 3/uL 12/16/2022 9:06 AM [facility] Basophils Absolute 0.03 0.00 - 0.08 10 3/uL 12/16/2022 9:06 AM [facility] Immature Granulocytes % 0.7 0.0 - 1.0 % 12/16/2022 9:06 AM [facility] Immature Granulocytes Absolute 0.05 12/16/2022 9:06 AM [facility] Blood BLOOD SPECIMEN / Unknown Venipuncture / Unknown 12/16/2022 8:35 AM CDT 12/16/2022 9:02 AM CDT Fanta Grubbs PA-C LAB - HEMATOLOGY ORDERABLES [facility] [address] [place] [phone], [facility] [phone] * (ABNORMAL) BASIC METABOLIC PANEL (CALCIUM TOTAL) (12/16/2022 8:35 AM CDT) Only the most recent of5 resultswithin the time period is included. BUN 10 7 - 26 mg/dL 12/16/2022 9:29 AM [facility] Creatinine 0.94 0.71 - 1.16 mg/dL 12/16/2022 9:29 AM [facility] Sodium 143 136 - 145 mmol/L 12/16/2022 9:29 AM [facility] Potassium 4.4 3.5 - 4.5 mmol/L 12/16/2022 9:29 AM [facility] Chloride 105 98 - 107 mmol/L 12/16/2022 9:29 AM [facility] CO2 27 22 - 29 mmol/L 12/16/2022 9:29 AM [facility] Glucose 129(H) 70 - 115 mg/dL 12/16/2022 9:29 AM [facility] Calcium 9.3 8.4 - 10.2 mg/dL 12/16/2022 9:29 AM [facility] Anion Gap 15 8 - 18 12/16/2022 9:29 AM [facility] BUN/Creatinine Ratio 11 7 - 23 12/16/2022 9:29 AM [facility] Osmolality Calculated 297 270 - 300 mOsm/kg 12/16/2022 9:29 AM [facility] eGFR by CKD-EPI 90 >=90 mL/min/1.7 3 m2 12/16/2022 9:29 AM [facility] Blood BLOOD SPECIMEN / Unknown Venipuncture / Unknown 12/16/2022 8:35 AM CDT 12/16/2022 9:02 AM CDT Fanta Grubbs PA-C LAB - CHEMISTRY O RDERABLES Performing Organization Address City/State/[facility] Co de Phone Number [facility] [address] [place] [phone], [facility] [phone] * CARDIAC RHYTHM STRIP ORDER (07/09/2021 5:42 PM SECURITY OPERATIONS SPECIALIST) Only the most recent of2 resultswithin the time period is included. Narrative 07/09/2021 5:42 PM SECURITY OPERATIONS SPECIALIST Ordered by an unspecified provider. Scanned Document CARDIAC SERVICES ORD ERABLES * ETT LINE PERFORMABLE (07/04/2021 11:28 AM SECURITY OPERATIONS SPECIALIST) Narrative Mckenzie Hagen APRN-CRNA - 07/04/2021 11:28 AM SECURITY OPERATIONS SPECIALIST Mckenzie Hagen APRN-CRNA 07/04/2021 11:29 AM Endotracheal Tube Placement: Patient Location: OR. Intubation Event Date/Time: 07/04/2021 11:18 AM Procedure: intubation (22929). Procedure Section: Sedation: under general anesthesia. Indications for Airway Management: anesthesia Procedure pretreatments used? No Induction: standard IV Patient Position: sniffing Mask Ventilation: easy. Blade Type: Lisa Blade Size: 4 Laryngoscopy View: grade 1 (full cords) Intubation Adjuncts: stylet Tube: endotracheal tube Tube type: cuff - inflated Tube Size (MM): 8 Depth of Insertion (CM): 22 Measured From: gums Cuff volume (mL): 6 Cuff Inflated With: air Number of Attempts: 1. Placement Verified By: direct visualization, bilateral breath sounds, chest auscultation and CO2 monitor Tube secured with: adhesive tape. Dentition unchanged? Yes Difficult Airway? No. Procedure Start Time: 07/04/2021 11:18 AM. Staff Section Anesthesia Provider: Mckenzie Hagen APRN-CRNA, Performed the procedure John Cartagena DO GENERAL ANESTHESIA O RDERABLES * EMG WITH NERVE CONDUCTION STUDY (05/31/2021 3:32 PM CDT) Narrative Per Marrufo MD - 05/31/2021 3:32 PM CDT Per Marrufo MD 05/31/2021 3:[address], [address] [phone] Patient: Philip Barron V #: Physician: Per Marrufo MD Sex: Male ID#: [id number] Ref Phys: Angela Garvey. PA-Med : 1955 Date: 05/31/2021 Development Manager: Jona Cool Patient Complaints: The patient is a 66 year old male with complaints of pain, numbness, weakness, and tingling in the right hand. The symptoms have been present for 9 months. The patient has a history of diabetes mellitus. Query right wrist drop. EMG & NCV Findings: 1. The left radial motor nerve conduction study showed prolonged onset latency (Elbow, 4.0 ms), prolonged onset latency (Up Arm, 6.7 ms), and slow conduction velocity (Elbow-Up Arm, 44 m/s). 2. The right radial motor nerve conduction study showed prolonged onset latency (Forearm, 4.7 ms), small amplitude (Forearm, 1.2 mV), prolonged onset latency (Up Arm, 5.6 ms), and small amplitude (Up Arm, 0.1 mV). 3. The right ulnar motor nerve conduction study showed prolonged onset latency (3.7 ms) and slow conduction velocity (A Elbow-B Elbow, 36 m/s). 4. The right radial Anti Sensory nerve conduction study showed no response (Wrist) and no response (Site 2). 5. The right Median Digit II Sensory nerve conduction study showed prolonged peak latency (4.3 ms), small amplitude (15.2 V), and slow conduction velocity (Wrist-2nd Digit, 37 m/s). 6. The right Ulnar Digit V Sensory nerve conduction study showed prolonged peak latency (4.8 ms), small amplitude (9.2 V), and slow conduction velocity (Wrist-5th Digit, 34 m/s). 7. All remaining nerve conduction studies (as indicated in the following tables) were normal. 8. F Wave minimal latencies the right median F wave was no response. 9. The right ulnar F wave was no response. Needle EMG evaluation of the right first dorsal interosseous muscle showed increased insertional activity, 1+ Fibs/PSWs, large motor unit amplitude, long motor unit duration, few polyphasic potentials, and moderately reduced recruitment. The right extensor indicis muscle showed increased insertional activity, 2+ Fibs/PSWs, absent motor unit amplitude, absent motor unit duration, absent polyphasic potentials, and absent recruitment. The right extensor digitorum communis muscle showed increased insertional activity, increased Fibs/PSWs, absent motor unit amplitude, absent motor unit duration, absent polyphasic potentials, and absent recruitment. The right triceps muscle showed mildly reduced recruitment. The right flexor carpi ulnaris muscle showed large motor unit amplitude, long motor unit duration, and moderately reduced recruitment. The right brachioradialis muscle showed increased insertional activity, increased Fibs/PSWs, absent motor unit duration, and absent recruitment. EMG of all remaining muscles (as indicated in the following table) was normal. IMPRESSION This is an abnormal EDX study indicative of: 1. 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 This is supported by findings of absent radial sensory potential, severely low radial motor potential and denervation potentials at and distal to brachioradialis and other innervated myotome. 2. Moderate right ulnar neuropathy across elbow. 3. 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 4. The medial antebrachial cutaneous showed normal symmetric potentials. The right lateral antebrachial cutaneous response showed relative low potential but in isolation not supportive of brachial plexopathy. Per Marrufo MD Diplomate, [place] [employer] and [employer] Board Certified in Clinical Neurophysiology and Neurology Nerve Conduction Studies Motor Summary Table Stim Site NR Onset (ms) Norm Onset (ms) O-P Amp (mV) Norm O-P Amp Neg Area (mVms) Site1 Site2 Delta-0 (ms) Dist (cm) Master (m/s) Norm Master (m/s) Right Median Motor (Abd Poll Brev) 36.3 C Wrist 4.1 <4.5 14.5 >3 39.73 Elbow Wrist 5.0 27.0 54 >48 Elbow 9.1 13.0 39.34 Left Radial Motor (Ext Ind Prop) 36.3 C Forearm 2.7 <2.9 5.2 >2.0 24.40 Forearm Elbow 1.3 11.0 85 >50 Elbow 4.0 <2.9 4.9 >2.0 25.39 Elbow Up Arm 2.7 12.0 44 >50 Up Arm 6.7 <2.9 4.5 >2.0 22.95 Right Radial Motor (Ext Ind Prop) 36.3 C Forearm 4.7 <2.9 1.2 >2.0 5.25 Up Arm 5.6 <2.9 0.1 >2.0 0.15 Site 4 8.3 0.0 0.00 Right Ulnar Motor (Abd Dig Minimi) 36.3 C Wrist 3.7 <3.6 16.6 >5 55.10 B Elbow Wrist 4.4 24.0 55 >48 B Elbow 8.1 15.8 56.03 A Elbow B Elbow 2.8 10.0 36 >48 A Elbow 10.9 13.1 44.20 Anti Sensory Summary Table Stim Site NR Onset (ms) Peak (ms) Norm Onset (ms) O-P Amp ( V) Norm O-P Amp Site1 Site2 Delta-0 (ms) Dist (cm) Master (m/s) Norm Master (m/s) Left Lat Ante Brach Cutan Anti Sensory (Lat Forearm) 36.3 C Lat Biceps 2.3 2.7 7.4 Lat Biceps Lat Forearm 2.3 0.0 Site 2 2.3 2.7 8.3 Right Lat Ante Brach Cutan Anti Sensory (Lat Forearm) 36.3 C Lat Biceps 1.8 2.3 1.8 Lat Biceps Lat Forearm 1.8 0.0 Site 2 1.9 2.3 0.7 Left Med Ante Brach Cutan Anti Sensory (Med Forearm) 36.3 C Elbow 1.5 1.9 9.5 Elbow Med Forearm 1.5 0.0 Right Med Ante Brach Cutan Anti Sensory (Med Forearm) 36.3 C Elbow 1.5 2.0 11.7 Elbow Med Forearm 1.5 0.0 Right Radial Anti Sensory (Snuff Box) 36.3 C Wrist NR >15 Wrist Snuff Box 10.0 Site 2 NR Sensory Summary Table Stim Site NR Onset (ms) Peak (ms) P-T Amp ( V) Norm P-T Amp Site1 Site2 Delta-0 (ms) Dist (cm) Master (m/s) Norm Master (m/s) Right Median Digit II Sensory (2nd Digit) 36.3 C Wrist 3.8 4.3 15.2 >20 Wrist 2nd Digit 3.8 14.0 37 >48 Right Ulnar Digit V Sensory (5th Digit) 36.3 C Wrist 4.1 4.8 9.2 >17.0 Wrist 5th Digit 4.1 14.0 34 >50 F Wave Studies NR F-Lat (ms) Lat Norm (ms) L-R F-Lat (ms) L-R Lat Norm Right Median (Mrkrs) (Abd Poll Brev) 36.3 C NR <33 <2.2 Right Ulnar (Mrkrs) (Abd Dig Min) 36.3 C NR <36 <2.5 EMG Side Muscle Nerve Root Insrt Fibs Psw Fasc Amp Dur Poly Recrt Comm Right 1stDorInt Ulnar C8-T1 Incr Nml 1+ 0 Incr Incr 1+ Reduced (mod) Right ExtIndicis Radial (Post Int) C7-8 Incr 2+ 1+ 0 NA NA NA NA Right ExtDigCom Radial (Post Int) C7-8 Incr 3+ 2+ 0 NA NA NA NA Right Triceps Radial C6-7-8 Nml Nml Nml 0 Nml Nml 0 Reduced (mild) Right FlexCarpiUln Ulnar C8,T1 Nml Nml Nml 0 Incr Incr 0 Reduced (mod) Right Abd Poll Brev Median C8-T1 Nml Nml Nml 0 Nml Nml 0 Nml Right Brachioradialis Radial C5-6 Incr 3+ 2+ 0 Nml NA 0 NA Waveforms: Angela Garvey PA-C NEUROLOGY ORDERABLE S * EMG WITH NERVE CONDUCTION STUDY (01/26/2021 1:08 PM CDT) Narrative Mendy Saucedo MD - 01/26/2021 1:08 PM CDT Mendy Saucedo MD 01/26/2021 2:45 PM Full Name: Philip Barron Procedure #: [id number] Gender: Male Date of : 1955 Visit Date: 01/26/2021 13:04 Age: 66 Years Examining Physician: Mendy Saucedo MD Referring Physician: Per Glez MD Reason for Test: laceration of right upper extremity. History: Previous injury to the right upper limb. Repeat EDX is recommended for assessment of severity and for prognosis. Previous study was done in October 13, 2020. Pt s exam is limited due to pain and he is guarding his right arm in a flexed position so exam is not possible. SNC Nerve / Sites Rec. Site Onset Lat Peak Lat PP Amp Segments Distance Peak Diff Velocity Temp. ms ms V mm ms m/s C R Radial - Anatomical snuff box (Forearm) Forearm Wrist NR NR NR Forearm - Wrist 100 NR 31.6 Ref. ?2.5 ?15.0 Ref. ?53 R Median, Ulnar - Transcarpal comparison Median Palm Wrist 2.3 2.8 16.9 Median Palm - Wrist 80 35 32 Ref. ?2.2 ?40.0 Ref. ?53 Ulnar Palm Wrist 1.5 2.4 8.7 Ulnar Palm - Wrist 80 52 31.7 Ref. ?2.1 ?11.0 Ref. ?53 Median Palm - Ulnar Palm 0.3 31.7 Ref. ?0.4 R Lateral antebrachial cutaneous - Forearm (Elbow) Elbow Forearm 2.5 3.0 13.6 Elbow - Forearm 120 48 32.4 Ref. ?3.3 ?5.0 Ref. 2 Forearm 2.4 3.0 15.1 2 - Elbow 0.0 33 R Medial antebrachial cutaneous - Forearm (Elbow) Elbow Forearm 2.9 3.4 7.2 Elbow - Forearm 120 41 Ref. ?3.3 ?3.0 Ref. MNC Nerve / Sites Muscle Latency Amplitude Segments Lat Diff Distance Velocity ms mV ms mm m/s R Median - APB Wrist APB 4.7 10.1 Wrist - APB 70 Ref. ?4.5 ?3.0 Ref. Elbow APB 10.6 9.3 Elbow - Wrist 5.9 290 49 Ref. Ref. ?48 R Ulnar - ADM Wrist ADM 3.4 12.7 Wrist - ADM 70 Ref. ?3.6 ?5.0 Ref. B.Elbow ADM 8.6 11.8 B.Elbow - Wrist 5.2 270 52 Ref. Ref. ?48 A.Elbow ADM 11.3 10.8 A.Elbow - B.Elbow 2.7 100 37 Ref. Ref. ?48 A.Elbow - Wrist 7.9 R Radial - EIP Forearm EIP NR NR Forearm - EIP Ref. ?2.0 Ref. R Ulnar - FDI Wrist FDI 4.6 5.8 Wrist - FDI B.Elbow FDI 10.3 5.5 B.Elbow - Wrist 5.6 270 48 Ref. Ref. ?49 A.Elbow FDI 12.8 5.1 A.Elbow - B.Elbow 2.5 100 40 Ref. Ref. ?49 A.Elbow - Wrist 8.2 EMG Summary Table Insertional Spontaneous Volitional MUAPs Muscle Nerve Roots Insertional Fib PSW Fasc Duration Amplitude Poly Recruitment R. APB Median C8-T1 Normal Pt did not tolerate. Interpretation: The right radial sensory SNAP response is absent. The right radial motor CMAP response is absent. The right median sensory SNAP amplitude is decreased; the peak latency is prolonged; and the conduction velocity is reduced. The right ulnar sensory SNAP amplitude is decreased; the peak latency is prolonged; and the conduction velocity is reduced. The right medial antebrachial sensory SNAP amplitude is normal; the peak latency is prolonged. The right lateral antebrachial sensory SNAP response is normal. The right median motor CMAP amplitude is normal; the distal latency is prolonged, and the conduction velocity is normal. The right ulnar motor CMAP amplitude is normal when recording at the FDI, the distal latency is normal and the conduction velocity is reduced across the elbow. The right ulnar motor CMAP amplitude is normal when recording at the ADM, the distal latency is normal and the conduction velocity is reduced across the elbow. The needle EMG exam of the right APB was not tolerated by the patient and he declined completion of the study. Conclusions: This study is incomplete as patient did not tolerate the needle EMG exam. This study is abnormal. There is evidence for: 1. 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 The exact severity is not determined in this study due to the inability to obtain NEE due to patient s intolerance to pain as above. These findings are unchanged when compared to the previous study done on October 13/2021. 2. Right ulnar neuropathy at the elbow. The severity of which is not determined in this study due to inability to obtain the NEE data as above. These findings are unchanged when compared to the previous study done on October 13/2021. 3. Right radial neuropathy the severity and exact localization of which is not determined in this study due to the above mentioned reasons. These findings are also unchanged when compared to the previous study done on October 13/2021. 4. 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 Further conclusion is not possible due to the absence of the NEE data. When compared with previous study, this current study shows improvement of the right lateral antebrachial nerve s amplitude while persistence of the prolonged latency of the right medial antebrachial nerve. Clinical correlation is recommended. Mendy Saucedo MD Per Glez MD NEUROLOGY ORDERABLES * APHERESIS/TRANSFUSION ORDER (09/18/2020 6:59 PM SECURITY OPERATIONS SPECIALIST) Narrative 09/18/2020 6:59 PM SECURITY OPERATIONS SPECIALIST Ordered by an unspecified provider. Scanned Document NURSING - VITAL SIGN S AND ASSESSMENT * EKG 12-LEAD (09/13/2020 6:03 AM SECURITY OPERATIONS SPECIALIST) Ventricular Rate 73 BPM [facility] Atrial Rate 73 BPM [facility] P-R Interval 138 ms [facility] QRS Duration ms 90 ms [facility] Q-T Interval ms 412 ms [facility] QTC Calculation (Bezet) 453 ms [facility] Calculated R [place] 31 degrees [facility] Calculated T [place] 72 degrees [facility] Interpretation EKG NORMAL SINUS RHYTHM NONSPECIFIC T WAVE ABNORMALITY ABNORMAL ECG Confirmed by MD Claudia, Iker ([id number]) on 09/13/2020 7:50:42 AM [facility] M[facility] 09/13/2020 6:03 AM SECURITY OPERATIONS SPECIALIST 09/13/2020 7:50 AM SECURITY OPERATIONS SPECIALIST Fer Jasso DO ECG ORDERABLES Performing Organization Address City/[facility]/ZIP Co de Phone Number [facility] * MAGNESIUM BLOOD (09/13/2020 2:51 AM SECURITY OPERATIONS SPECIALIST) Only the most recent of3 resultswithin the time period is included. Magnesium 2.0 1.6 - 2.6 mg/dL 09/13/2020 4:42 AM SECURITY OPERATIONS SPECIALIST [facility] Blood BLOOD SPECIMEN / Unknown Lab Venipuncture / Unknown 09/13/2020 2:51 AM SECURITY OPERATIONS SPECIALIST 09/13/2020 4:13 AM SECURITY OPERATIONS SPECIALIST Fer Jasso DO LAB - CHEMISTRY ORDE RABLES Performing Organization Address City/[facility] Co de Phone Number [facility] [address] [phone] * ETT LINE PERFORMABLE (09/12/2020 1:04 PM SECURITY OPERATIONS SPECIALIST) Narrative Hayley Johnston APRN-CRNA - 09/12/2020 1:04 PM SECURITY OPERATIONS SPECIALIST Hayley Johnston APRN-CRNA 09/12/2020 1:04 PM Endotracheal Tube Placement: Patient Location: OR. Intubation Event Date/Time: 09/12/2020 12:21 PM Procedure: intubation (37421). Procedure Section: Sedation: under general anesthesia. Indications for Airway Management: anesthesia Induction: standard IV Patient Position: sniffing Mask Ventilation: easy. Blade Type: Mc Blade Size: 2 Laryngoscopy View: grade 2 (partial cords) Intubation Adjuncts: cricoid pressure and stylet Tube: endotracheal tube Placement: oral Tube type: cuff - inflated Tube Size (MM): 8 Depth of Insertion (CM): 23 Measured From: lips Cuff volume (mL): 9 Cuff Inflated With: air Number of Attempts: 1. Ventilation between attempts: No. Placement Verified By: direct visualization, bilateral breath sounds, chest auscultation and CO2 monitor Tube secured with: adhesive tape. Difficult Airway? No. Procedure Start Time: 09/12/2020 12:21 PM. Staff Section Anesthesia Provider: Hayley Johnston APRN-HIMA, Performed the procedure John Cartagena DO GENERAL ANESTHESIA O RDERABLES * PREPARE (CROSSMATCH) RBC UNIT(S), 1 Units (09/12/2020 2:17 AM SECURITY OPERATIONS SPECIALIST) Only the most recent of2 resultswithin the time period is included. [facility] Unit Description N/A [facility] BLOOD [facility]ANK LAB Blood Bank BLOOD SPECIMEN / Unknown 09/10/2020 11:30 AM SECURITY OPERATIONS SPECIALIST Sergio Vela DO LAB - BLOOD BANK ORD ERABLES Performing Organization Address [facility]/ZIP Co de Phone Number [facility]OD [facility] [address] [place] [address], [facility] [phone] * PHOSPHORUS BLOOD (09/12/2020 1:58 AM SECURITY OPERATIONS SPECIALIST) Only the most recent of2 resultswithin the time period is included. [facility] Phosphorus 3.7 2.3 - 4.7 mg/dL 09/12/2020 2:47 AM SECURITY OPERATIONS SPECIALIST [facility] Blood BLOOD SPECIMEN / Unknown Venipuncture / Unknown 09/12/2020 1:58 AM SECURITY OPERATIONS SPECIALIST 09/12/2020 2:26 AM SECURITY OPERATIONS SPECIALIST Tomer Nolasco MD LAB - CHEMISTRY JANETTE SANDHU [facility] [address] [place] [address] * (ABNORMAL) HEMOGLOBIN A1C (09/11/2020 8:14 AM SECURITY OPERATIONS SPECIALIST) [facility] Hemoglobin A1c 7.1(H) 4.4 - 6.3 % 09/11/2020 10:41 AM [facility] Estimated Average Glucose 157 mg/dL 09/11/2020 10:41 AM [facility] Comment: HbA1c Interpretation: Treatment target values recommended by ADA and other clinical organizations should be used to evaluate metabolic control in patients. Treatment Target Values: Normal : < 5.7% Pre-diabetes: 5.7-6.4% Diabetes: Equal to or greater than 6.5% Reference: [place] Diabetes Association Standards of Care in Diabetes -2014 In patients 70 years and older consider HbA1c target range of 7.0-7.5% Reference: Diabetes Mellitus in Older People: Position Statement on behalf of the International Association of Gerontology and Geriatrics (IAGG), the Diabetes Working Republican for Older People (EDWPOP), and the International Task Force of Experts in Diabetes. Mikhail Godinez, et al. J [employer] Association. 2012 Test results diagnostic of diabetes should be repeated for confirmation. The Sebia Capillary 2 assay for the measurement of HbA1c is a National Glycohemoglobin Standardization Program (NGSP)certified method. Blood BLOOD SPECIMEN / Unknown Venipuncture / Unknown 09/11/2020 8:14 AM SECURITY OPERATIONS SPECIALIST 09/11/2020 8:18 AM SECURITY OPERATIONS SPECIALIST Narrative [facility] - 09/11/2020 10:41 AM SECURITY OPERATIONS SPECIALIST note^<nlbl:demographic_changed> Margarita Plata APRN-PHOTOGRAPHER ASSISTANT LAB - CHEMISTRY ORDERABLES Performing Organization Address City/State/[facility] Co de Phone Number [address] [address], [facility] [phone] * XR CHEST 1VW PORTABLE (09/11/2020 4:37 AM SECURITY OPERATIONS SPECIALIST) Only the most recent of2 resultswithin the time period is included. Anatomical Region Laterality Modality Chest Radiographic Emilee ging 09/11/2020 8:47 AM SECURITY OPERATIONS SPECIALIST Impressions 09/11/2020 2:46 PM SECURITY OPERATIONS SPECIALIST FINDINGS/IMPRESSION: There is a small left pleural effusion with associated compressive atelectasis. There is mild bilateral lower lung field opacities, likely representing atelectasis and/or pneumonia. There is no pneumothorax. The cardiomediastinal silhouette is normal. The visible bony thorax is intact. Dictated by Alec Dumas MD (transporter radiology). I, Dr.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 gastrocnemius muscle and left rectusfemoris. IMPRESSION: Right lower extremity angiogram: Patent to the knee. 1 vessel runoffbelow the knee. Left lower extremity angiogram: Patent to the knee. 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 Dictated by Sondra Dobbins MD (transporter radiology). I, Dr. KIM HAMILTON M.D. have personally reviewed and interpreted this examination/study. This report was electronically signed by KIM HAMILTON M.D. on 02/06/2018 4:38 PM . Nava Morgan MD CT ORDERABLES * (ABNORMAL) CREATININE BLOOD - POCT (IP) [facility] (02/06/2018 7:43 AM CDT) Creatinine POCT 1.51(A) 0.3 - 1.3 mg/dL [facility] POCT TESTING eGFR POCT 60 60 ml/min [facility] POCT TESTING Blood BLOOD SPECIMEN / Unknown 02/06/2018 7:43 AM CDT Nava Morgan MD LAB - POINT OF CARE ORDERABLES [facility] POCT TESTING [address] [phone] Care Teams Newspaper Managing Editor Relationship Specialty Start Date End Date Unknown, Provider PCP - General 01/01/18
--- OUTSIDE RECORDS SUMMARY | 2024-09-07 15:34 | XMS_ITS | Encounter Summary ---
Author Organization [facility] Address [address] [facility] [place] [address] Phone Care Team Providers Care Table Tender Name Role Phone Cecile Terrell APRN, CNP Primary Care Provider Reason for Referral * PT/OT/ST (Routine) - Closed Specialty Diagnoses / Procedures Referred By Contdave t Referred To Contact Physical Therapy Diagnoses Cerebrovascular accident (CVA), unspecified mechanism (HCC) Cecile Terrell APRN, CNP [address] [place] [address] Phone: tel: fax: [facility] at [address] [address] Phone: tel: fax: Referral ID Status Reason Start Date Expiration Date Visits Re quested Visits Authorized [id number] Closed 02/11/2024 50 11 Scheduling Instructions Encounter Details Date Type Department Care Team (Latest Contact Info) Description 02/11/2024 Transcribe Orders [facility] [address] [place] [address] Cecile Terrell APRN, CNP [address] [place] [address] Cerebrovascular accident (CVA), unspecified mechanism (HCC) (Primary Dx) Social History Tobacco Use Types [...] Scheduled Referrals Name Type Priority Associated Diagnoses Orde r Schedule PHYSICAL THERAPY REFERRAL Outpatient Referral Routine Cerebrovascular accident (CVA), unspecified mechanism (HCC) Expected: 02/11/2024, Expires: 02/10/2025 documented as of this encounter Visit Diagnoses Diagnosis Cerebrovascular accident (CVA), unspecified mechanism (HCC)- Primary documented in this encounter Care Teams Table Tender Relationship Specialty Start Date End Date Cecile Terrell APRN, CAR RECORD CLERK [address] [place] [address] PCP - General Advanced Practice Nurse 04/22/22 documented as of this encounter
--- OUTSIDE RECORDS SUMMARY | 2024-09-07 15:34 | XMS_ITS | Encounter Summary ---
Author Organization [facility] Address [address] [place] [address] Phone Care Team Providers Care Exercise Science Instructor Name Role Phone Romaine Frank DO Primary Care Provider Vineet Conklin GUSSET FOLDER Primary Care Provider [phone] Cecile Terrell GUSSET FOLDER Primary Care Provider + [phone] Encounter Details Date Type Department Care Team (Late st Contact Info) Description 05/13/2014 Orders Only [facility] O[facility]CON[facility] Provider, MD Nereyda [address] [place] [id number] Social History Tobacco Use Types Packs/Day Years Used Date Smoking Tobacco: Never Assessed Sex and Gender Information Value Date Recorded Sex Assigned at Not on file 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 Historical Provider NURSING COMMUNICATION Fin al Result documented in this encounter Visit Diagnoses Not on filedocumented in this encounter Care Teams Exercise Science Instructor Relationship Specialty Start Date End Date Romaine Frank DO [address] [place] [address] [address] [place] [address] PCP - General Cardiovascular Disease 09/14/19 0 Vineet Conklin NP [address] [facility] [address] [place] [address] PCP - General Internal Medicine 12/09/19 03/12/21 Cecile Terrell NP [address] [address] PCP - General Family Medicine 03/13/21 documented as of this encounter
--- OUTSIDE RECORDS SUMMARY | 2024-09-07 15:34 | XMS_ITS | Data Portability ---
Author Organization [facility]) Address [address] [place] [address] Care Team Providers Care Railroad Emergency Services Manager Name Role Phone ALLEN GILMORE Primary Care Provider [phone] Assessment Encounter Date Assessment Date Assessment LastModified by Organization Details LastModified Time 10/05/2021 10/05/2021 66 y/o with history of diabetes and hypertension. Presenting with bilateral lower extremity pain at rest. Ultrasound performed today shows evidence of severe arterial disease. I believe that he is at risk for limb loss. This represents critical limb ischemia. My recommendation is lower extremity angiogram with possible intervention. He does also appear to have venous disease. I plan to bring him back after his arterial disease has been addressed to get a venous ultrasound. After his arterial disease has been treated, I would also prescribe compression therapy. Given that he is a diabetic, I will refer him to Podiatry for routine foot care. The risks, benefits, and alternatives were discussed with the patient. The patient states they understand and wish to proceed. Treatment planning is underway. I spent a total of 60 minutes with the patient. The time was spent reviewing the chart and forming a treatment plan [email or web address] Not available 10/05/2021 12:48:55 12/04/2021 12/04/2021 66 yo with symptomatic PVD, s/p right lower extremity intervention. Patient is feeling better with improved symptoms and improved skin integrity. He is scheduled for another revascularization of the left lower extremity. [email or web address] Not available 12/04/2021 10:04:06 03/22/2022 03/22/2022 67 yo with symptomatic PVD, s/p right lower extremity intervention. He has significant improvement in his right lower extremity rest pain. However, he continues to complain of left lower extremity pain, particularly upon ambulation. He has tried conservative therapy, however his symptoms that he will persist. I will plan for left lower extremity angiogram with revascularization. Treatment planning is underway. [email or web address] Not available 03/22/2022 09:57:22 Plan of Treatment Reminders Order Date Submit Date Provider Last Modified By Organization Details Last Modified Time Details Appointments None recorded. Lab None recorded. Referral fish drier referral - For Routine Diabetic Foot Care 2021 022 [email or web address] 3 Carlos Hammonds, [address] [place], [address], 12:37:33 Procedures None recorded. Surgeries None recorded. Imaging None recorded. Medication Orders Adult Low Dose Aspirin 81 mg tablet,wendie yed release 2021 022 [id number], [address] , [place], [place], [id number], 12:02:24 Plavix 75 mg tablet 2021 022 [id number], [address], [place], [place], [id number], 12:02:25 Patient TargetsNo targets recorded. Patient InstructionsNo instructions recorded. 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 [email or web address] Not Available 2021 17:00:54 Result Notes None recorded. Problems Name Problem SNOMED Code Status Onset Date Resolution Date Notes Provider Name and Address Organization Details Recorded Time Essential hypertension 41426786 Active 2021 donovan rodriguez, [place] [facility] and 2 07:17:04 Diabetes mellitus 12950827 Active 2021 donovan june null, [place] - [facility] and 07:17:01 Moderate chronic obstructive pulmonary disease 043316726 Active 2021 donovan june null, [place] - [facility] and 07:17:09 Problem Notes None recorded. Procedures Surgical History Date Name Laterality Status Provider Name and Address Organization Details Recorded Time OA LE revascularization completed Jt Banegas MD [address] [place] [address], [phone], [place] - [facility] 11/19/2021 12:01:11 OA LE revascularization [place] Jt Banegas [place] [address] [place] [address], [phone], [place] - [facility] and 11/11/2021 03:47:29 [email or web address] completed Anahy Karthik [place] - [facility] and 10/05/2021 12:55:33 OA LE Quantiflow study completed [facility] - [facility] and 10/05/2021 11:26:41 procedure on upper arm completed [facility] - [facility] and 10/05/2021 11:34:13 Imaging Results Imaging Date Name Status [facility]Modified by [facility] Details LastModified Time 10/04/2021 US, doppler, venous completed [email or web address] Information not available 12/12/2021 17:00:54 Procedure Notes None recorded. Medical Equipment None Reported. Allergies No known drug allergies Medications Name Sig Start Date Stop Date Status Note LastModified by Organization Details LastModified Time albuterol sulfate 2.5 mg/3 mL (0.083 %) solution for nebulization USE 3 ML VIA NEBULIZER THREE TIMES DAILY NEEDED active Not Available Not Available No t Available lisinopril 20 mg tablet TAKE 1 TABLET BY MOUTH DAILY active Not Available Not Available No t Available Plavix 75 mg tablet Take 1 tablet(s) every day by oral route for 90 days. active Not Available Not Available No t Available aspirin 81 mg tablet,delaye d release TAKE 1 TABLET BY MOUTH EVERY DAY active Not Available Not Available No t Available trazodone 100 mg tablet Take 1 tablet twice a day by oral route. active Not Available Not Available No t Available gabapentin 300 mg capsule TAKE 1 CAPSULE BY MOUTH TWICE DAILY active Not Available Not Available No t Available hydrochloroth iazide 25 mg tablet TAKE 1 TABLET BY MOUTH EVERY DAY active Not Available Not Available No t Available albuterol sulfate HFA 90 mcg/actuation aerosol inhaler INHALE 2 PUFFS BY MOUTH EVERY 4 HOURS NEEDED active Not Available Not Available No t Available Flovent HFA 44 mcg/actuation aerosol inhaler INHALE 2 PUFFS BY MOUTH TWICE DAILY active Not Available Not Available No t Available sertraline active Not Available Not Av ailable Not Available Januvia 100 mg tablet TAKE 1 TABLET BY MOUTH EVERY DAY active Not Available Not Available No t Available Symbicort 160 mcg-4.5 mcg/actuation HFA aerosol inhaler INHALE 2 PUFFS BY MOUTH TWICE DAILY active Not Available Not Available No t Available Vitals Date Recorded Body height Body mass index (BMI) Body weight Heart rate Heart rate Systolic blood pressure Diastolic blood pressure Systolic blood pressure Diastolic blood pressure Provider Name and Address Organization Details Last Updated DateTime 2 185.42 cm 33.8 kg/m2 410619. 65 g 70 /min 60 /min 160 mm[Hg] 89 mm[Hg] 142 mm[Hg] 76 mm[Hg] aSrah Oquendo [facility] 2 12:17:14 Date Recorded Body height Body mass index (BMI) Body weight Heart rate Systolic blood pressure Diastolic blood pressure Provider Name and Address Organization Details Last Updated DateTime 2 185.42 cm 33.8 kg/m2 694811. 65 g 60 /min 142 mm[Hg] 76 mm[Hg] Anahy Angeles [facility] 2 12:55:47 Date Recorded Body height Body mass index (BMI) Body weight Heart rate Systolic blood pressure Diastolic blood pressure Provider Name and Address Organization Details Last Updated DateTime 2 185.42 cm 33.4 kg/m2 349455. 87 g 74 /min 98 mm[Hg] 58 mm[Hg] donovan june [place] - [facility] 2 08:38:06 Date Recorded Body height Body mass index (BMI) Body weight Heart rate Systolic blood pressure Diastolic blood pressure Provider Name and Address Organization Details Last Updated DateTime 2 185.42 cm 31 kg/m2 362615. 21 g 78 /min 123 mm[Hg] 77 mm[Hg] donovan june [place] - [facility] 2 07:16:19 Date Recorded Body height Provider Name an d Address Organization Details Last Updated DateTime 12/04/2021 185.42 cm Divina Hallmandridge [place] - [facility] 12/04/2021 09:58:35 Date Recorded Body height Provider Name an d Address Organization Details Last Updated DateTime 03/22/2022 185.42 cm Anahy Angeles [place] - [facility] 03/22/2022 09:31:18 Social History Question Answer Notes LastModified by [email or web address] ion Details LastModified Time Tobacco Smoking Status Current Every Day Smoker Sarah rodriguez, [place] - [facility] and 10/05/2021 11:31:45 Are You Blind Or Do You Have Difficulty Seeing? Yes Difficulty Seeing. Went To Eye Doctor Yesterday And Will Be Getting Glasses. [email or web address] Information not available 10/05/2021 In The 14 Days Before Symptom Onset, Have You Had Close Contact With A Laboratory-confi rmed COVID-19 While That Case Was Ill? No [email or web address] Information not available 10/05/2021 In The 14 Days Before Symptom Onset, Have You Had Close Contact With A Person Who Is Under Investigation For COVID-19 While That Person Was Ill? No [email or web address] Information not available 10/05/2021 Have You Been To An Area Known To Be High Risk For COVID-19? No [email or web address] Information not available 10/05/2021 Are You Deaf Or Do You Have Serious Difficulty Hearing? No Information not available 10/05/2021 What Type Of Diet Are You Following? DIABETIC Patient Is Supposed To Be On A Diabetic Diet, But States He Eats What He Wants. [email or web address] Information not available 10/05/2021 Have You Processed Blood Or Body Fluids From An Ebola Virus Disease Patient Without Appropriate PPE? No [email or web address] Information not available 10/05/2021 Do You Reside In Or Have You Traveled To An Area Where Ebola Virus Transmission Is Active? No [email or web address] Information not available 10/05/2021 What Is The Highest Grade Or Level Of School You Have Completed Or The Highest Degree You Have Received? HK65166-5 [email or web address] Information not available 10/05/2021 What Was The Date Of Your Most Recent Tobacco Screening? 03/22/2022 [email or web address] Information not available 03/22/2022 How Much Tobacco Do You Smoke? 0.5 PPD [email or web address] Information not available 03/22/2022 Do You Or Have You Ever Used Any Other Forms Of Tobacco Or Nicotine? No [email or web address] Information not available 03/22/2022 Sex: Unknown Functional Status Question Answer Note LastModified by Organizat ion Details LastModified Time Do you have difficulty walking or climbing stairs? Yes Has issues because of the pain in his legs and the callouses on his feet. [email or web address] Information not available 10/05/2021 Are you able to walk? YESWOREST Stops frequently to issues with his legs. States It's like they lose energy. Information not available 10/05/2021 Do you have difficulty doing errands alone? No [email or web address] Information not available 10/05/2021 Do you have difficulty dressing or bathing? No [email or web address] Information not available 10/05/2021 What is your exercise level? None [email or web address] Information not available 10/05/2021 Mental Status Question Answer Note LastModified by Organization D etails LastModified Time Do you have difficulty concentrating, remembering or making decisions? No Information no t available 10/05/2021 Family History Nothing Reported. Medical History Condition Response Anxiety Disorder N Varicose Veins N Anticoagulation therapy N Diabetes Y Coronary Artery Disease N Bleeding Disorder N Hyperlipidemia N Cancer N Stroke N Asthma N COPD Y Pacemaker N Clotting Disorder N Anemia N Neurologic Disorder N Hepatitis N Genitourinary Disease N Heart Disease N Ulcers N Gastrointestinal Disease N Pulmonary Embolism N Deep Vein Thrombosis N Hypertension Y Kidney Disease N Past Encounters Encounter ID Performer Location Encounter Start Date Encounter Closed Date Diagnosis/Indication Diagnosis SNOMED-CT Code Diagnosis ICD10 Code Diagnosis Note [id number] Jt Banegas MD [address] ( [facility] [address] [place] [address] 10/05/2021 10:50:39 10/09/2021 10:42:19 Peripheral vascular disease 292765557 I73.9 Varicose v eins of lower extremity 98233792 I83.893 Primary ve nous insufficiency of leg 652334917 I87.2 Bilateral lower limb pain at rest due to atherosclerosis 2499793768 5191833 I70.223 Complicati on due to diabetes mellitus 74563752 E11.59 [id number] Anahy [address] [place] [address] [place] [address] 10/05/2021 12:45:41 10/10/2021 11:13:53 Bilateral lower limb pain at rest due to atherosclerosis 6674989862 7207487 I70.223 [id number] ( [place] ) [address] [place] [address] 11/07/2021 08:11:12 11/19/2021 12:50:05 Bilateral lower limb pain at rest due to atherosclerosis 5197978144 2513652 I70.223 [id number] Jt Banegas MD [address] ( [place] ) [address] [place] [address] 11/19/2021 06:55:59 11/19/2021 17:47:49 Bilateral lower limb pain at rest due to atherosclerosis 6620704255 7145617 I70.[id number] [address] [facility] ,[facility] [address] [place] [address] 12/04/2021 09:46:32 12/04/2021 10:19:40 Bilateral lower limb pain at rest due to atherosclerosis 1773980764 0098778 I70.223 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 [place] [address] 03/22/2022 09:29:10 03/22/2022 10:04:47 Bilateral lower limb pain at rest due to atherosclerosis 3444429379 8801128 I70.223 Health Concerns Section Related Observation LastModified by Organization Detai ls LastModified Time None Recorded Concern Status LastModified by Organization Details LastModified Time None Recorded Advance Directives Directive None Recorded Payers Encounter Date Sequence Insurance Name Policy Number Policy Palma Covered Member ID Palma Member ID Guarantor Name 10/05/2021 1 [employer] (MEDICARE REPLACEMENT/A DVANTAGE - PPO) Philip Barron [id number] Philip Barron 11/07/2021 1 [employer] (MEDICARE REPLACEMENT/A DVANTAGE - PPO) Philip Barron [id number] Philip Barron 11/19/2021 1 [employer] (MEDICARE REPLACEMENT/A DVANTAGE - PPO) Philip Barron [id number] Philip Barron 12/04/2021 1 [employer] (MEDICARE REPLACEMENT/A DVANTAGE - PPO) Philip Anderson [id number] Philip Anderson 03/22/2022 1 [employer] (MEDICARE REPLACEMENT/A DVANTAGE - PPO) Philip Anderson [id number] Philip Anderson Notes Date Note Type Note Provider Name and Address Organization Details Recorded Time 10/05/2021 text/html Arterial Occlusi ve Disease: Lower ExtremityReported bypatient.[facility] Quality:cramping; burning; aching; tingling; pain with exertion; cramping with exertion Severity:severe Duration:has noted for years Onset/Timing:continuou s; at rest; with exercise begins at <1/2 block; with exercise begins at 1 block Context:tobacco use Aggravating Factors:walking; standing Associated Symptoms:weakness;numb ness/tingling;paresthe susan;[place] [address], [address], [facility] and 10/05/2021 13:31:13 11/07/2021 text/html Patient with a h istory of {{right left bilateral *}}{{claudication rest pain* tissue loss/ulcer}}, presenting for angiogram with possible intervention Jt Banegas MD [address] [place] [address], [address], [address], [facility] and 11/11/2021 03:58:24 11/19/2021 text/html Patient with a h istory of {{right left bilateral *}}{{claudication rest pain* tissue loss/ulcer}}, presenting for angiogram with possible intervention Jt Banegas MD [address] [place] [address], [phone], [facility] and 11/19/2021 12:02:39 12/04/2021 text/html {{____ 66#}} yo with symptomatic PVD, presenting for follow up after lower extremity intervention. There are no acute issues. He reports his right leg and foot is feeling much better. He is able to walk more easily (yesterday he was able to walk to the park for the first time in a long time and he is planning on fishing in his [place] for the first time ever). Divina rodriguez, [facility] and 12/04/2021 10:05:08 03/22/2022 text/html {{____ 67#}} yo with symptomatic PVD, presenting for follow up after Right lower extremity intervention. He reports that when he is stationary, his legs feel similar. However, when he ambulates, he feels pain in his left lower extremity. 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 Otherwise, stated he has been doing fine since his procedure. He has no other complaints. He has not been taking his plavix. Jt Banegas [place] [address] [place] [address], [address], [address], [facility] and 03/22/2022 09:58:15
--- OUTSIDE RECORDS SUMMARY | 2024-09-07 15:34 | XMS_ITS | Encounter Summary ---
Author Organization [facility] Healthcare Address [address] [place] [address] Care Team Providers Care Twister Hand Name Role Phone Vineet Conklin COIL MACHINE OPERATOR Primary Care Provider [phone] Cecile Terrell COIL MACHINE OPERATOR Primary Care Provider [phone] Encounter Details Date Type Department Care Team ([facility] Contact Info) Description 03/21/[address] [address] [place] Pelayo, Social History Tobacco Use Types Packs/Day Years Used Date Smoking Tobacco: Every Day Sex and Gender Information Value Date Recorded Sex Assigned at Not on file 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
--- OUTSIDE RECORDS SUMMARY | 2024-09-07 15:34 | XMS_ITS | Data Portability ---
Author Organization [facility] [employer], Main Office Address [address] [place] [address] Assessment Encounter Date Assessment Date Assessment LastModified by Organization Details LastModified Time 11/04/2022 11/04/2022 This note is dictated and transcribed by [employer]. Sanding Machine Tender variances may occur. Despite proofreading, typographical errors may occur. [email or web address] Not available 11/04/2022 12:28:44 Plan of Treatment Reminders Order Date Submit Date Provider Last Modified By Organization Details Last Modified Time Details Appointments None recorded. Lab None recorded. Referral None recorded. Procedures None recorded. Surgeries None recorded. Imaging None recorded. Medication Orders ammonium lactate 12 % topical cream [address] [id number], [address], [place], [id number], 3 12:50:54 ketoconazol e 2 % topical cream 2022 023 [email or web address] [facility] #[id number], [address], [place], [phone], 4 08:37:08 Patient TargetsNo targets recorded. Patient InstructionsNo instructions recorded. Reason for Referral None Reported. Problems Name Problem SNOMED Code Status Onset Date Resolution Date Notes Provider Name and Address Organization Details Recorded Time Hypercholeste rolemia 72121386 Active 2017 Not Available [facility] 3 20:19:51 Dry skin 19910733 Active 2019 Not Available [facility] 3 20:19:51 Foot callus 849832757 Active 2019 Not Available [facility] 3 20:19:51 Dry skin dermatitis 149872023 Active 2019 Not Available [facility] 3 20:19:51 Bronchitis 04291574 Active 2017 Not Available [facility] 3 20:19:51 Depressive disorder 74206882 Active 2017 Not Available [facility] 3 20:19:51 Arthritis 0862022 Active 2017 Not Available [facility] 3 20:19:51 Onychomycosis of toenails 426293668 Active 2017 Not Available [facility] 3 20:19:51 Diabetic peripheral neuropathy 953549754 Active 2017 Not Available [facility] 3 20:19:52 Foot pain 98300050 Active 2017 Not Available [facility] 3 20:19:52 Tinea pedis 4133103 Active 2019 Not Available [facility] 3 20:19:52 Diabetes mellitus 28717948 Active 2017 Not Available [facility] 3 20:19:52 Severe dry skin 802155185 Active 2022 Markus Kerr DPM [address], [place], [address] , [employer] 3 12:28:19 Notes:eye problems, difficul ty sleeping, balance problems, numbness or tingling, shortness of breath, excessive thirst, sleep apnea, vision problems Problem Notes None recorded. Procedures Surgical History Date Name Laterality Status Provider Name and Address Organization Details Recorded Time 3 Nail Debridement completed Markus Kerr DPM [address], [place], [address], [employer] 11/04/2022 14:49:25 3 Callus Debridement, One completed Markus Kerr DPM [address], [place], [address], [employer] 11/04/2022 14:49:17 Imaging Results None recorded. Procedure Notes None recorded. Medical Equipment None Reported. Allergies No known drug allergies Medications Name Sig Start Date Stop Date Status Note LastModified by Organization Details LastModified Time atorvastati n 40 mg tablet TAKE 2 TABLETS BY MOUTH DAILY 03/08 completed Not Available Not Available Not Available terbinafine HCl 1 % topical cream CINDY TO THE AFFECTED AND SURROUNDI NG AREAS OF SKIN ONCE D active Not Available Not Available No t Available prednisone 10 mg tablet active Not Available Not Available Not Available nicotine 14 mg/24 hr daily transdermal patch 03/08 completed Not Available Not Available Not Available ipratropium 0.5 mg-albutero l 3 mg (2.5 mg base)/3 mL nebulizatio n soln U 3 ML VIA NEB QID PRF SOB 03/08 completed Not Available Not Available Not Available albuterol sulfate 2.5 mg/3 mL (0.083 %) solution for nebulizatio n USE 1 VIAL PER NEBULIZER THREE TIMES DAILY NEEDED active Not Available Not Available No t Available ammonium lactate 12 % lotion APPLY TO FEET TWICE DAILY 03/08 completed Not Available Not Available Not Available trazodone 50 mg tablet TK 1 T PO QD HS active Not Available Not Available No t Available cilostazol 50 mg tablet TAKE 1 TABLET BY MOUTH TWICE DAILY 03/08 completed Not Available Not Available Not Available ofloxacin 0.3 % eye drops 03/08 completed Not Available Not Available Not Available levetiracet am 500 mg tablet TAKE 1 TABLET BY MOUTH EVERY 12 HOURS 03/08 completed Not Available Not Available Not Available hydrocodone 5 mg-acetamin ophen 325 mg tablet TAKE 1 TABLET BY MOUTH EVERY 6 HOURS NEEDED FOR PAIN 03/08 completed Not Available Not Available Not Available lisinopril 20 mg tablet TAKE 1 TABLET BY MOUTH EVERY DAY 03/08 completed Not Available Not Available Not Available prednisone 20 mg tablet TK 2 TS PO D active Not Available Not Available No t Available clopidogrel 75 mg tablet TAKE 1 TABLET BY MOUTH EVERY DAY 03/08 completed Not Available Not Available Not Available amlodipine 5 mg tablet TAKE 1 TABLET BY MOUTH EVERY DAY 03/08 completed Not Available Not Available Not Available aspirin 81 mg tablet,wendie yed release TAKE 1 TABLET BY MOUTH EVERY DAY 03/08 completed Not Available Not Available Not Available doxycycline monohydrate 100 mg tablet TAKE 1 TABLET BY MOUTH TWICE DAILY FOR 7 DAYS active Not Available Not Available No t Available tramadol 50 mg tablet active Not Available Not Available No t Available triamcinolo ne acetonide 0.1 % topical cream CINDY TO THE BOTTOM OF BOTH FEET IN THE MORNING active Not Available Not Available No t Available simvastatin 40 mg tablet TK 1 T PO HS active Not Available Not Available No t Available ketorolac 0.5 % eye drops 03/08 completed Not Available Not Available Not Available amoxicillin 875 mg tablet TAKE 1 TABLET BY MOUTH EVERY 12 HOURS FOR 7 DAYS active Not Available Not Available No t Available prednisolon e acetate 1 % eye drops,suspe nsion active Not Available Not Available Not Available trazodone 100 mg tablet TAKE 1 TABLET BY MOUTH EVERY DAY active Not Available Not Available No t Available cephalexin 500 mg capsule 08/23 completed Not Available Not Available Not Available lisinopril 10 mg tablet 03/08 completed Not Available Not Available Not Available Advair Diskus 250 mcg-50 mcg/dose powder for inhalation INHALE 1 PUFF BY MOUTH TWICE DAILY active Not Available Not Available No t Available nicotine 21 mg/24 hr daily transdermal patch CINDY 1 PA EXT TO THE SKIN QD 03/08 completed Not Available Not Available Not Available lisinopril 30 mg tablet TAKE 1 TABLET BY MOUTH EVERY DAY active Not Available Not Available No t Available gabapentin 300 mg capsule TAKE 1 CAPSULE BY MOUTH TWICE DAILY active Not Available Not Available No t Available sertraline 25 mg tablet active Not Available Not Available Not Available aspirin 81 mg chewable tablet CHEW AND SWALLOW 1 TABLET BY MOUTH DAILY 03/08 completed Not Available Not Available Not Available ammonium lactate 12 % topical cream APPLY TOPICALLY TO THE AFFECTED AREA EVERY DAY NEEDED active Not Available Not Available No t Available lisinopril 5 mg tablet TK 1 T PO QD 03/08 completed Not Available Not Available Not Available hydrochloro thiazide 25 mg tablet TAKE 1 TABLET BY MOUTH EVERY DAY 03/08 completed Not Available Not Available Not Available gabapentin 100 mg capsule 03/08 completed Not Available Not Available Not Available albuterol sulfate HFA 90 mcg/actuati on aerosol inhaler INHALE 2 PUFFS BY MOUTH EVERY 4 HOURS NEEDED active Not Available Not Available No t Available ketoconazol e 2 % topical cream APPLY TOPICALLY TO THE AFFECTED AREA ON TOENAILS EVERY DAY 03/08 completed Not Available Not Available Not Available sertraline 50 mg tablet active Not Available Not Available Not Available nicotine 7 mg/24 hr daily transdermal patch 03/08 completed Not Available Not Available Not Available bupropion HCl XL 150 mg 24 hr tablet, extended release TAKE 1 TABLET BY MOUTH EVERY DAY active Not Available Not Available No t Available Spiriva with HandiHaler 18 mcg and inhalation capsules active Not Available Not Available Not Available OneTouch UltraSoft Lancets TEST BLOOD SUGARS ONCE D active Not Available Not Available No t Available Flovent HFA 44 mcg/actuati on aerosol inhaler INHALE 2 PUFFS BY MOUTH TWICE DAILY 03/08 completed Not Available Not Available Not Available Flovent HFA 110 mcg/actuati on aerosol inhaler INHALE 1 PUFF BY MOUTH TWICE DAILY 03/08 completed Not Available Not Available Not Available pregabalin 25 mg capsule TAKE ONE CAPSULE BY MOUTH TWICE DAILY active Not Available Not Available No t Available OneTouch Ultra2 Meter kit USE TO TEST BS ONCE D active Not Available Not Available No t Available Advair HFA 115 mcg-21 mcg/actuati on aerosol inhaler USE 2 INHALATIO NS BY MOUTH TWICE DAILY active Not Available Not Available No t Available Januvia 100 mg tablet TAKE 1 TABLET BY MOUTH EVERY DAY active Not Available Not Available No t Available hydrochloro thiazide 12.5 mg tablet TAKE 1 TABLET BY MOUTH EVERY DAY active Not Available Not Available No t Available Symbicort 80 mcg-4.5 mcg/actuati on HFA aerosol inhaler INL 2 PFS PO BID active Not Available Not Available No t Available Jardiance 10 mg tablet TAKE 1 TABLET BY MOUTH DAILY 03/08 completed Not Available Not Available Not Available Spiriva Respimat 2.5 mcg/actuati on solution for inhalation INL 2 PFS PO QD active Not Available Not Available No t Available Incruse Ellipta 62.5 mcg/actuati on powder for inhalation INHALE 1 PUFF BY MOUTH EVERY DAY 03/08 completed Not Available Not Available Not Available Qvar RediHaler 40 mcg/actuati on HFA breath activated aerosol INHALE 2 PUFFS BY MOUTH TWICE DAILY active Not Available Not Available No t Available OneTouch Ultra Blue Test Strip TEST BS ONCE D UTD active Not Available Not Available No t Available Afluria Qd 2018- (36 mos up)(PF)60 mcg (15 mcg x4)/0.5 mL IM syringe ADM 0.5ML IM UTD 03/08 completed Not Available Not Available Not Available Afluria Qd 2019- (36 mos up)(PF)60 mcg (15 mcg x4)/0.5 mL IM syringe ADM 0.5ML IM UTD 03/08 completed Not Available Not Available Not Available Breyna 160 mcg-4.5 mcg/actuati on HFA aerosol inhaler Inhale 2 puffs twice a day by inhalatio n route. active Not Available Not Available No t Available Vitals Date Recorded Body mass index (BMI) Body mass index (BMI) Body height Body height Body height Heart rate Body weight Body weight Systolic blood pressure Diastolic blood pressure Provider Name and Address Organization Details Last Updated DateTime 3 20.7 kg/m2 20.7 kg/m2 185.42 cm 185.42 cm 185.42 cm 56 /min 83547 g 68185 g 110 mm[Hg] 90 mm[Hg] Not Available [facility] 3 20:19:29 Date Recorded Heart rate Respiratory rate Oxygen saturation Oxygen saturation in Arterial blood by Pulse oximetry Systolic blood pressure Diastolic blood pressure Provider Name and Address Organization Details Last Updated DateTime 3 80 /min 18 /min 98 % 98 % 123 mm[Hg] 66 mm[Hg] Odalys Sierra [facility] [employer] 3 12:02:15 Social History Question Answer Notes LastModified by Organizat ion Details LastModified Time Tobacco Smoking Status Current Every Day Smoker RITO Yoon null, [facility] [employer] 03/08/2024 08:39:24 What Is Your Level Of Alcohol Consumption? Moderate Information not available 03/08/2024 Do You Use Any Illicit Or Recreational Drugs? No Information not available 03/08/2024 Sex: Unknown Functional Status None recorded. Mental Status None recorded. Family History Relationship Description Onset Age of this Age Resolved Age Notes LastModified by Organization Details LastModified Time Mother Alcohol abuse [email or web address] Not available 2023 08:38:19 Mother Diabetes mellitus [email or web address] Not available 2023 08:38:27 Mother Heart disease [email or web address] Not available 2023 08:38:36 Mother Hypertensive disorder [email or web address] Not available 2023 08:38:43 Father Alcohol abuse [email or web address] Not available 2023 08:38:51 Brother Hypertensive disorder [email or web address] Not available 2023 08:38:58 Sister Hypertensive disorder [email or web address] Not available 2023 08:39:02 Medical History Condition Response ARTHRITIS Y DIABETES, TYPE Y DEPRESSION (INCLUDING POST ) Y COPD Y HYPERTENSION Y STROKE/TIA Y HIGH CHOLESTEROL / HYPERLIPIDEMIA Y Past Encounters Encounter ID Performer Location Encounter Start Date Encounter Closed Date Diagnosis/Indication Diagnosis SNOMED-CT Code Diagnosis ICD10 Code Diagnosis Note [id number] [facility] [address] [place] [address] 10/09/2020 00:00:00 10/09/2020 09:57:58 [id number] [facility] [address] [place] [address] 03/05/2021 00:00:00 03/05/2021 14:48:07 [id number] [facility] [address] [place] [address] 06/14/2021 00:00:00 06/14/2021 20:46:13 [id number] Markus Kerr DPM [facility] [address] [place] [address] 11/04/2022 11:56:31 11/04/2022 15:22:57 Severe dry skin 755224487 L85.3 Rx Amlactin newDaily foot hygieneFol low-up 3 months Onychomyco sis of toenails 471902863 B35.1 Educated on conditionN ails 1 through 10 were debrided with sharp mechanical debridemen t without incident. Nails were debrided and greater than 50% length and thickness where needed. Diabetic p eripheral neuropathy 788549683 E11.40 Patient educated on neuropathy , diabetes, diabetic diet, and daily foot exams. Patient is to check feet daily for new wounds, blisters, redness to prevent infection and ulceration s to the feet. Patient will return to clinic in 3 months for diabetic foot workup. Health Concerns Section Related Observation LastModified by Organization Detai ls LastModified Time None Recorded Concern Status LastModified by Organization Details LastModified Time None Recorded Advance Directives Directive None Recorded Payers Encounter Date Sequence Insurance Name Policy Number Policy Palma Covered Member ID Palma Member ID Guarantor Name 11/04/2022 1 [place] Philip Barron [id number] Philip Barron 11/04/2022 1 [place] [facility] Philip Barron [id number] Philip E Anderson Notes Date Note Type Note Provider Name and Address Organization Details Recorded Time 11/04/2022 text/html . Patient is a 67-year-old male who returns the office for follow-up on diabetic foot exam. Patient has neuropathy of the feet but denies any wounds or infection. Patient states he has a significantly painful callus under the plantar right foot and elongated toenails. Patient states that he cannot cut his own nails or take care of the callus. Patient denies any open wounds or sores. Patient denies any injury of the foot. Patient denies any other pedal complaints. Markus Kerr DPM [address] [facility], [facility] [address], [place], [address], [facility] 11/04/2022 14:50:14
--- OUTSIDE RECORDS SUMMARY | 2024-09-07 15:34 | XMS_ITS | Clinical Summary ---
Author Organization [facility] Address [address] [place] [address] Phone Care Team Providers Care Behavioral Technician Name Role Phone Xander, Cecile Godinez APRN, SHARI Primary Care Provider Allergies No known active allergies Medications albuterol (PROVENTIL HFA, VENTOLIN HFA) 108 (90 Base) MCG/ACT Aerosol Solution take 2 Puffs by inhalation every 6 hours as needed for Wheezing. 1 Inhaler 7 Active JANUVIA 100 MG Tablet TK 1 T PO QD 4 8 Active Umeclidinium [place] (INCRUSE ELLIPTA IN) take by inhalation. Active budesonide-form oterol fumarate (SYMBICORT) 80-4.5 MCG/ACT Aerosol take 2 Puffs by inhalation 2 times daily. Active hydroCHLOROthia zide 25 MG Tablet Take 25 mg by mouth daily. Active LISINOPRIL PO Take 5 mg by mouth. Active gabapentin (NEURONTIN) 300 MG Capsule Take 300 mg by mouth 2 times daily. Active predniSONE (DELTASONE) 20 MG Tablet Use as directed. 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 [place] or callus 10/06/2017 Dermatophytosis of nail 10/06/2017 Immunizations Immunization Administration Dates Next Due Influenza Vaccine greater than 3 yrs 06/04/2019 TDAP Vaccine 01/12/2018,08/17/2017 Family History Medical History Relation Name Comments Diabetes Brother Diabetes Mother Relation Name Status Comments Brother Mother Social History Tobacco Use Types Packs/Day Years Used Date Smoking Tobacco: Every Day Cigarettes Smokeless Tobacco: Never Tobacco Cessation:Ready to Q uit: Yes; Counseling Given: Yes Comments:about 10 cigarettes Alcohol Use Standard Drinks/Week Comments Not Currently 0 (1 standard drink = 0.6 oz pur e alcohol) daily Sex and Gender Information Value Date Recorded Sex Assigned at Not on file Legal Sex Male 10:26 PM CDT Gender Identity Not on file Sexual Orientation Not on file Last Filed Vital Signs Vital Sign Reading Time Taken Comments Blood Pressure 152/90 06/18/2019 12:50 PM COMPUTER PROGRAMMER Pulse 77 06/18/2019 12:50 PM COMPUTER PROGRAMMER Temperature 36.7 C (98.1 F) 06/18/2019 12:50 PM COMPUTER PROGRAMMER Respiratory Rate 17 06/18/2019 12:50 PM COMPUTER PROGRAMMER Oxygen Saturation 94% 06/18/2019 12:50 PM COMPUTER PROGRAMMER Inhaled Oxygen Concentration - - Weight 115.7 kg (255 lb) 06/18/2019 12:50 PM COMPUTER PROGRAMMER Height 185.4 cm (6' 1 ) 06/18/2019 12:50 PM COMPUTER PROGRAMMER Body Mass Index 33.64 06/18/2019 12:50 PM COMPUTER PROGRAMMER Plan of Treatment Health Maintenance Due Date Last Done Comments Diabetes: Eye Exam 1957 Diabetes: Foot Exam 1955 Hepatitis C Virus (HCV) Screening 1955 Cologuard 2007 Immunochemical Fecal Occult Blood 2007 Zoster Immunization (1 of 2) 2007 PSA Discussion 01/14/2012 Diabetes: Nephropathy Screening 03/05/2020 03/05/2019, 02/25/2018, 03/01/2016 Diabetes: Hemoglobin A1c 09/24/2022 03/27/2022, 08/28 SARS-COV-2 Immunization ( season) 2024 04/02/2024, 05/15/2023, 06/28/2021, Additional history exists Td Immunization Every 10 Years (Adults With 1 Tdap) 2028 01/12/2018, 08/17/2017 Colonoscopy 08/22/2030 08/22/2020 Colorectal Cancer Screening 08/22/2030 Respiratory Syncytial Virus (RSV) Immunization (Adult) (1 - 1-dose 75+ series) 01/14/2032 08/22/2020 DTaP/Tdap/Td Immunization Discontinued 01/12/2018, Pneumococcal Immunization (50+ years) Completed 06/08/2023, 08/20/2021 Pneumococcal Immunization Combined Discontinued 06/08/2023, 08/20/2021 Influenza Immunization Completed 4, 05/15/2023, 06/01/2022, Additional history exists Hepatitis B Immunization Aged Out No longer eligible based on patient's age to complete this topic Meningococcal Immunization (ACWY) Aged Out No longer eligible based on patient's age to complete this topic Rotavirus Immunization Aged Out No lo nger eligible based on patient's age to complete this topic Procedures Procedure Name Priority Date/Time Associated Diagnosis Comments CMP (COMPREHENSIVE METABOLIC PANEL) STAT 03/05/2019 1:35 PM CDT from Last 3 Months or Most Recently Relevant to Health Maintenance Results * (ABNORMAL) CMP (Comprehensive Metabolic Panel) (03/05/2019 1:35 PM CDT) SODIUM 138 136 - 144 mmol/L 03/05/2019 2:07 PM CDT [facility] POTASSIUM 4.0 3.5 - 5.1 mmol/L 03/05/2019 2:07 PM CDT [facility] CHLORIDE 99(L) 100 - 110 mmol/L 03/05/2019 2:07 PM CDT [facility] CO2, VENOUS 28 22 - 32 mmol/L 03/05/2019 2:07 PM CDT [facility] ANION GAP 15.0 8.0 - 20.0 mmol/L 03/05/2019 2:07 PM CDT [facility] GLUCOSE 114(H) 70 - 99 mg/dL 03/05/2019 2:07 PM CDT [facility] BUN 9 8 - 23 mg/dL 03/05/2019 2:07 PM CDT [facility] CREATININE, BLOOD 1.10 0.80 - 1.30 mg/dL 03/05/2019 2:07 PM CDT [facility] BUN/CREATININE RATIO 8(L) 12 - 20 ratio 03/05/2019 2:07 PM [facility] TOTAL PROTEIN 7.6 6.0 - 8.3 g/dL 03/05/2019 2:07 PM T [facility] ALBUMIN 4.1 3.5 - 5.2 g/dL 03/05/2019 2:07 PM T [facility] Comment: The colormetric methods used for the determination of Albumin may lead to falsely elevated test results in patients suffering from renal failure or insufficiency due to interference with other proteins. A/G RATIO 1.2 1.0 - 2.0 03/05/2019 2:07 PM CDT [facility] CALCIUM 9.9 8.9 - 10.3 mg/dL 03/05/2019 2:07 PM [facility] T BILI 0.3 <=1.2 mg/dL 03/05/2019 2:07 PM [facility] SGOT (AST) 22 <=40 U/L 03/05/2019 2:07 PM [facility] SGPT (ALT) 18 <=41 U/L 03/05/2019 2:07 PM T [facility] ALKALINE PHOSPHATASE 76 40 - 130 U/L 03/05/2019 2:07 PM [facility] GFR, EST. NONAFRICAN >60 >=60 03/05/2019 2:07 PM CDT [facility] GFR, EST. >60 >=60 019 2:07 PM [facility] Comment: Creatinine Clearance is the preferred criteria for selecting drug dose adjustments in renally impaired patients. The GFR is provided as additional pertinent clinical information. GFR is reported in mL/min/1.73 sq m. Blood specimen (specimen) Venous Catheter (IV) / Unknown 03/05/2019 1:35 PM CDT 03/05/2019 1:43 PM CDT Sergio Mcgowan MD CHEMISTRY ORDERABLES Final Result [facility] [address] [place] [address] from Last 3 Months or Most Recently Relevant to Health Maintenance Insurance MEDICARE C [employer] Care Teams Behavioral Technician Relationship Specialty Start Date End Date Cecile Terrell APRN, CONTAINER W[employer]ER MACHINE [address] [place] [address] PCP - General Advanced Practice Nurse 04/22/22
--- NOTE | 2024-09-07 17:45 | ED.SOB ---
HPI - SOB/Dyspnea General Chief Complaint: Shortness of Breath/Dyspnea <Fanta Ruffin PA-C - Last Filed: 09/07/24 17:55> Stated Complaint: shortness of breath <Fanta Ruffin PA-C - Last Filed: 09/07/24 17:55> Time Seen by Provider: 09/07/24 17:46 <WILY Crook Last Filed: 09/07/24 17:55> Focused HPI: Patient is a 69 y/o male, with PMH of copd, DM, HTN, alcoholism, who presents to the ED via EMS with report of SOB. patient reports having increased shortness of breath since yesterday. Worse with exertion. He has had a mild cough, rhinorrhea, subjective fevers over the last couple of days. He does note that he ran out of his inhalers 2 days ago. Also states he has been out of his nebulizer machine since this summer. Has not followed up with his doctor for this. Denies pain or swelling in legs, significant chest pain, sick contacts. GENERAL: Appears older than stated age, well-nourished, and in no acute distress. HEAD: Normocephalic, atraumatic. CHEST: Clear to auscultation. ?No respiratory distress. No significant focal lung sounds. HEART: Regular rate and rhythm.? NEURO: ?Alert and oriented x3. [place]. Patient screened in triage and initial orders placed.? ?Additional care and disposition to be based upon?diagnostic testing and treatment. <Fanta Ruffin PA-C - Last Filed: 09/07/24 17:55> Source: patient <WILY Crook Last Filed: 09/07/24 17:55> Mode of arrival: EMS <WILY Crook Last Filed: 09/07/24 17:55> Limitations: no limitations <WILY Crook Last Filed: 09/07/24 17:55> History of Present Illness HPI Narrative: Agree with the above with the following additions/corrections: Has been short of breath for a few days. Does not chronically have a cough with his COPD but does now. No previous Bipap or intubation for COPD exacerbation. Not on anticoagulation. No chest pain. Denies edema. No hemoptysis. No prior DVT/PE. <Yamileth Dove MD - Last Filed: 09/09/24 11:08> Related Data Home Medications: Home Medications ?Medication ?Instructions ?Recorded ?Confirmed ?Last Taken ?Type albuterol sulfate 90 mcg/actuation See Rx Instructions .Route 05/03/20 09/07/24 02/27/21 History aerosol inhaler .COMPLEX PRN Shortness Of Breath amlodipine 5 mg tablet 5 mg PO DAILY 10/06/22 09/07/24 Unknown History budesonide-formoterol HFA 160 1 inh inhalation DAILY 10/06/22 09/07/24 Unknown History mcg-4.5 mcg/actuation aerosol inhaler (Symbicort) lisinopril 30 mg tablet 30 mg PO DAILY 10/06/22 09/07/24 09/07/24 History <Fanta Ruffin PA-C - Last Filed: 09/07/24 17:55> Allergies/Adverse Reactions: Allergies Allergy/AdvReac Type Severity Reaction Status Date / Time No Known Allergies Allergy Verified 09/07/24 21:05 <Fanta Ruffin PA-C - Last Filed: 09/07/24 17:55> [facility] Past Medical History Medical History: Medical History Subclinical hyperthyroidism Alcoholism Diabetes mellitus with peripheral autonomic neuropathy Insomnia COPD (chronic obstructive pulmonary disease) HTN (hypertension) <Fanta Ruffin PA-C - Last Filed: 09/07/24 17:55> Family History Family History: Family History Sibling Diabetes mellitus Mother Hypertension Father Liver failure <Fanta Ruffin PA-C - Last Filed: 09/07/24 17:55> Social History Social History: Social History Smoking packs per day: 1 Smoking cigarettes per day: 20.0 Years smoked: 50 Smoking pack-years: 50.00 Smoking status: Current every day smoker Tobacco type: cigarettes Second hand tobacco smoke exposure: Yes Alcohol intake: former Drinks per week: 6 Substance use: never Substance use type: does not use Do You Feel Safe in your Home?: Yes Lack of Transportation: No Lack of Food: Never True Current Housing: I Have Housing Concerned About Future Housing: No Difficulty Paying Gas/Electric Bills: No Difficulty Paying for Meds: No Currently Unemployed: No Education: Grade School Difficulty w/ Childcare or Family Care: No Living arrangements: alone Occupation/Education: unemployed Additional occupation/education comments: Disabled Gender identity (if verbalized by the patient): Male Spiritual care concerns: No <Fanta Ruffin PA-C - Last Filed: 09/07/24 17:55> Exam Narrative: GENERAL: Well-appearing, well-nourished, and in no acute distress. HEAD: Normocephalic, atraumatic. EYES: Non injected, non icteric ENT: Nares clear, no rhinorrhea or epistaxis. NECK: Supple. CHEST: Speaking in full sentences but labored, becomes dyspneic and tachypneic. Diffuse wheezes bilaterally. HEART: Regular rate and rhythm. . ABDOMEN: Soft, nondistended. EXTREMITIES: Normal range of motion. No lower extremity edema bilaterally. SKIN: Warm, dry, no rash. NEURO: No focal deficits. Alert and oriented x3. PSYCH: Normal mood and affect. <Yamileth Dove MD - Last Filed: 09/09/24 11:08> Course Vital Signs Vital signs: Vital Signs Temperature 97.9 F 09/07/24 15:12 Pulse Rate 96 09/07/24 15:12 Respiratory Rate 16 09/07/24 15:12 Blood Pressure 145/99 H 09/07/24 15:12 Pulse Oximetry 100 09/07/24 15:12 Oxygen Delivery Room Air 09/07/24 15:12 Temperature 97.4 F L 09/09/24 08:00 Pulse Rate 65 09/09/24 10:33 Respiratory Rate 18 09/09/24 10:33 Blood Pressure 142/88 H 09/09/24 08:00 Pulse Oximetry 99 09/09/24 10:23 Oxygen Delivery Room Air 09/09/24 10:23 <Fanta Ruffin PA-C - Last Filed: 09/07/24 17:55> Vital Signs Temperature 97.9 F 09/07/24 15:12 Pulse Rate 96 09/07/24 15:12 Respiratory Rate 16 09/07/24 15:12 Blood Pressure 145/99 H 09/07/24 15:12 Pulse Oximetry 100 09/07/24 15:12 Oxygen Delivery Room Air 09/07/24 15:12 Temperature 97.4 F L 09/09/24 08:00 Pulse Rate 65 09/09/24 10:33 Respiratory Rate 18 09/09/24 10:33 Blood Pressure 142/88 H 09/09/24 08:00 Pulse Oximetry 99 09/09/24 10:23 Oxygen Delivery Room Air 09/09/24 10:23 <Yamileth Dove MD - Last Filed: 09/09/24 11:08> MDM - SOB/Dyspnea MDM Narrative Medical decision making narrative: MSE by CINDY in triage. <Fanta Ruffin PA-C - Last Filed: 09/07/24 17:55> MSE by CINDY in triage. Patient has a history of COPD and is a smoker. Presents with SOB and a new cough. Ran out of inhalers and nebulizer machine broken. In the emergency department he is afebrile with vital signs notable for hypertension. The hypertension worsens upon repeat assessment and he has also becomes tachypneic at this time. BNP iselevated, less than would be predicted for acute heart failure given the reference range of the assay for patient's age, though close. His troponin is barely though technically elevated, less than previous. Given Aspirin and will obtain repeat. Viral swab negative. YEARS Algorithm : No Clinical signs of DVT: No Hemoptysis: No PE is most likely diagnosis: No D-dimer >1000ng/mL: No Result: PE Excluded; will not proceed with further workup. BAP-65 Score for Acute Exacerbation of COPD (predicts mortality in acute COPD exacerbation) BUN >/=25 mg/dL (No 0, Yes +1): 0 AMS (No 0, Yes +1): 0 Pulse >/=109 beats/min (No 0, Yes +1): 0 Age, years: 41-64 versus >/= 65: >65 Result: Class III , 1% in hospital mortality. Has received steroid, magnesium, DuoNeb and multiple albuterol treatments. 3 hour troponin is still elevated, higher than previous. 6 hours ordered. He remains without chest pain on reassessment and although States he is feeling somewhat better he continues to be tight and wheezy. Patient will require admission for continued management monitoring. 6 hour troponin ordered as are fluids and additional albuterol. Diabetic diet ordered. Confirms Full Code status. Discussed with hospitalist Dr Dupree. Will be IMU given NSTEMI. <Yamileth Dove MD - Last Filed: 09/09/24 11:08> Differential Diagnosis Differential diagnosis: Likely acute exacerbation of chronic obstructive airways disease, congestive heart failure, community acquired pneumonia, pulmonary embolism and other (ACS) <Yamileth Dove MD - Last Filed: 09/09/24 11:08> Lab Data Attestation: I reviewed the patient's lab results. <Yamileth Dove MD - Last Filed: 09/09/24 11:08> Result diagrams: 09/08/24 05:24 09/08/24 05:24 <Fanta Ruffin PA-C - Last Filed: 09/07/24 17:55> Labs: Lab Results 09/07/24 09/07/24 09/07/24 Range/Units 18:52 21:17 21:17 WBC 7.4 (4.5-10.0) K/mm3 RBC 4.58 L (4.6-6.20) M/mm3 Hgb 13.9 L (14.0-18.0) g/dL Hct 42.3 (42.0-52.0) % MCV 92.4 (80-100) fl MCH 30.3 (26-34) pg MCHC 32.9 (32-36) g/dl RDW 14.2 (11.5-14.5) % Plt Count 218 (150-375) k/mm3 MPV 10.0 (7.4-10.4) fl Immature Gran % (Auto) 0.5 (0-0.5) % Neut % (Auto) 65.4 (45.5-73.1) % Lymph % (Auto) 19.7 (18.3-44.2) % [place] % (Auto) 7.6 (2.6-8.5) % Eos % (Auto) 6.4 H (0-4.4) % Baso % (Auto) 0.4 (0.2-1.2) % Lymph # (Auto) 1.45 (0.9-3.2) K/mm3 [place] # (Auto) 0.6 (0.1-0.6) K/mm3 Eos # (Auto) 0.5 H (0-0.3) K/mm3 Baso # (Auto) 0.0 (0.0-0.1) K/mm3 Abs Immat Gran (auto) 0.04 H (0.00-0.031) K/mm3 Absolute Neuts (auto) 4.8 (1.3-6.7) K/mm3 Absolute Nucleated RBC 0.000 (0.0-0.012) K/mm3 Nucleated RBC % 0.0 (0.0-0.2) % PT 15.0 H (11.1-14.7) Seconds INR 1.2 APTT 28.3 (22.3-36.8) Seconds D-Dimer 0.95 H (<0.48) ug/mL Sodium 141 (137-145) mmol/L Potassium 3.9 (3.4-5.0) mmol/L Chloride 104 (98-107) mmol/L Carbon Dioxide 29 (22-30) mmol/L Anion Gap 8 (4-12) mmol/L BUN 12 D (9-20) mg/dL Creatinine 0.99 (0.7-1.3) mg/dL Estim Creat Clear Calc Not Reportable Estimated GFR > 60 (59 - ) Glucose 92 (65-110) mg/dL Calcium 9.5 (8.4-10.2) mg/dL Magnesium 1.7 Cancelled (1.6-2.3) mg/dL Total Bilirubin 0.5 (0.2-1.3) mg/dL AST 24 (17-59) U/L ALT 15 (6-50) U/L Alkaline Phosphatase 82 (38-126) U/L Troponin I 0.035 H* 0.042 H* (0.000-0.034) ng/mL NT-Pro-B Natriuret Pep 810 H (19.9-100) pg/mL Total Protein 7.0 (6.3-8.2) g/dL Albumin 4.2 (3.5-5.1) g/dL Influenza A (RT-PCR) Negative (Negative) Influenza B (RT-PCR) Negative (Negative) RSV (RT-PCR) Negative (Negative) SARS-CoV-2 RNA (RT-PCR) Negative (Negative) <Fanta Ruffin PA-C - Last Filed: 09/07/24 17:55> Lab Results 09/07/24 09/07/24 09/07/24 Range/Units 18:52 21:17 21:17 WBC 7.4 (4.5-10.0) K/mm3 RBC 4.58 L (4.6-6.20) M/mm3 Hgb 13.9 L (14.0-18.0) g/dL Hct 42.3 (42.0-52.0) % MCV 92.4 (80-100) fl MCH 30.3 (26-34) pg MCHC 32.9 (32-36) g/dl RDW 14.2 (11.5-14.5) % Plt Count 218 (150-375) k/mm3 MPV 10.0 (7.4-10.4) fl Immature Gran % (Auto) 0.5 (0-0.5) % Neut % (Auto) 65.4 (45.5-73.1) % Lymph % (Auto) 19.7 (18.3-44.2) % [place] % (Auto) 7.6 (2.6-8.5) % Eos % (Auto) 6.4 H (0-4.4) % Baso % (Auto) 0.4 (0.2-1.2) % Lymph # (Auto) 1.45 (0.9-3.2) K/mm3 [place] # (Auto) 0.6 (0.1-0.6) K/mm3 Eos # (Auto) 0.5 H (0-0.3) K/mm3 Baso # (Auto) 0.0 (0.0-0.1) K/mm3 Abs Immat Gran (auto) 0.04 H (0.00-0.031) K/mm3 Absolute Neuts (auto) 4.8 (1.3-6.7) K/mm3 Absolute Nucleated RBC 0.000 (0.0-0.012) K/mm3 Nucleated RBC % 0.0 (0.0-0.2) % PT 15.0 H (11.1-14.7) Seconds INR 1.2 APTT 28.3 (22.3-36.8) Seconds D-Dimer 0.95 H (<0.48) ug/mL Sodium 141 (137-145) mmol/L Potassium 3.9 (3.4-5.0) mmol/L Chloride 104 (98-107) mmol/L Carbon Dioxide 29 (22-30) mmol/L Anion Gap 8 (4-12) mmol/L BUN 12 D (9-20) mg/dL Creatinine 0.99 (0.7-1.3) mg/dL Estim Creat Clear Calc Not Reportable Estimated GFR > 60 (59 - ) Glucose 92 (65-110) mg/dL Calcium 9.5 (8.4-10.2) mg/dL Magnesium 1.7 Cancelled (1.6-2.3) mg/dL Total Bilirubin 0.5 (0.2-1.3) mg/dL AST 24 (17-59) U/L ALT 15 (6-50) U/L Alkaline Phosphatase 82 (38-126) U/L Troponin I 0.035 H* 0.042 H* (0.000-0.034) ng/mL NT-Pro-B Natriuret Pep 810 H (19.9-100) pg/mL Total Protein 7.0 (6.3-8.2) g/dL Albumin 4.2 (3.5-5.1) g/dL Influenza A (RT-PCR) Negative (Negative) Influenza B (RT-PCR) Negative (Negative) RSV (RT-PCR) Negative (Negative) SARS-CoV-2 RNA (RT-PCR) Negative (Negative) <Yamileth Dove MD - Last Filed: 09/09/24 11:08> Imaging Data Radiologist's impression: MPRESSION: No focal infiltrate or effusion. <Yamileth Dove MD - Last Filed: 09/09/24 11:08> ECG Data EKG #1: Attestation: I personally reviewed and interpreted this ECG as follows: <Yamileth Dove MD - Last Filed: 09/09/24 11:08> ECG completion date: 09/07/24 <Yamileth Dove MD - Last Filed: 09/09/24 11:08> ECG completion time: 18:58 <Yamileth Dove MD - Last Filed: 09/09/24 11:08> Interpretation: Pre populated EKG algorithm suggests a junctional rhythm however are appreciable P-waves in complexes. [employer] interprets as atrial. Ventricular rate 79 beats per minute, SC interval 1 2. QRS 98. QT/QTC 402/437. Good R-wave progression across the precordial leads. T-wave flattening in inferior leads. <Yamileth Dove MD - Last Filed: 09/09/24 11:08> Discharge Plan Discharge Clinical Impression: Non-ST elevation [place] (NSTEMI), COPD exacerbation, Smokes cigarettes <Fanta Ruffin PA-C - Last Filed: 09/07/24 17:55> Patient Disposition: Still a Patient <Fanta Ruffin PA-C - Last Filed: 09/07/24 17:55> Condition: Stable <Fanta Ruffin PA-C - Last Filed: 09/07/24 17:55>
--- NOTE | 2024-09-07 17:50 | ECG_ITS ---
Test Date: 2024-09-07 18:58:28 Measurements Intervals [place] Rate: 79 P: 266 NV: 102 QRS: 51 QRSD: 98 T: 60 QT: 402 QTc: 462 Interpretive Statements ECTOPIC ATRIAL RHYTHM WITH OCCASIONAL VENTRICULAR PREMATURE COMPLEXES NONSPECIFIC ST & T-WAVE ABNORMALITY- DIFFUSE LEADS BASELINE ARTIFACT- I, II, III, AVR, AVL, AVF, V1-V6 ABNORMAL ECG No previous ECG available for comparison Electronically Signed On 09-07-2024 20:07:31 [employer] by Willard Funk D.O.
[2024-09-07 19:01] LABS: Basophils Percent Auto 0.4 % (0.2-1.2); Eosinophils Absolute Auto 0.5 K/mm3 (0-0.3); Eosinophils Percent Auto 6.4 % (0-4.4); Hematocrit 42.3 % (42.0-52.0); Hemoglobin 13.9 g/dL (14.0-18.0); Immature Granulocyte Absolute 0.04 K/mm3 (0.00-0.031); Immature Granulocyte Percent A 0.5 % (0-0.5); Lymphocytes Absolute Auto 1.45 K/mm3 (0.9-3.2); Lymphocytes Percent Auto 19.7 % (18.3-44.2); Mean Corpuscular HGB Conc 32.9 g/dl (32-36); Mean Corpuscular Hemoglobin 30.3 pg (26-34); Mean Corpuscular Volume 92.4 fl (80-100); Monocytes Absolute Auto 0.6 K/mm3 (0.1-0.6); Monocytes Percent Auto 7.6 % (2.6-8.5); Neutrophils Absolute Auto 4.8 K/mm3 (1.3-6.7); Neutrophils Percent Auto 65.4 % (45.5-73.1); Platelet Count Result 218 k/mm3 (150-375); Red Blood Count 4.58 M/mm3 (4.6-6.20); Red Cell Distribution Width 14.2 % (11.5-14.5); White Blood Count 7.4 K/mm3 (4.5-10.0)
[2024-09-07 19:11] LABS: Alanine Aminotransferase 15 U/L (6-50); Albumin Level 4.2 g/dL (3.5-5.1); Alkaline Phosphatase 82 U/L (38-126); Anion Gap 8 mmol/L (4-12); Aspartate Amino Transferase 24 U/L (17-59); Bilirubin,Total 0.5 mg/dL (0.2-1.3); Blood Urea Nitrogen 12 mg/dL (9-20); Calcium 9.5 mg/dL (8.4-10.2); Carbon Dioxide 29 mmol/L (22-30); Chloride 104 mmol/L (98-107); Estimated Glomerular Filt Rate > 60; Glucose 92 mg/dL (65-110); Potassium 3.9 mmol/L (3.4-5.0); Sodium 141 mmol/L (137-145)
[2024-09-07 19:25] LABS: INR 1.2
[2024-09-07 19:27] LABS: NT Pro B Type Natriuretic Pept 810 pg/mL (19.9-100); Partial Thromboplastin Time 28.3 Seconds (22.3-36.8); Troponin I 0.035 ng/mL (0.000-0.034)
[2024-09-07 19:48] LABS: Influenza A QL RT-PCR Negative (Negative); Influenza B QL RT-PCR Negative (Negative); RSV RNA, RT-PCR Negative (Negative); SARS-CoV-2 RNA PCR Negative (Negative)
--- OUTSIDE RECORDS SUMMARY | 2024-09-07 21:00 | XMS_ITS | Referral Summary ---
Author Organization [facility] [employer] Address [address] [place] [address] Care Team Providers Care Information Systems Consultant Name Role Phone Unknown, Provider Primary Care Provider Unavaila ble Source Comments [facility] [employer],non-owned Affiliates and Associated Physician Practices is amultiple site organization consisting of ambulatory clinics and hospital sitesin [place], [place], [place] and [place]. This disclosure is being madepursuant to the Care Everywhere program and may not contain all information available regarding this patient. 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 [...] file Gender Identity Male 09/11/2020 8:16 AM [employer] Sexual Orientation Not on file Last Filed Vital Signs Vital Sign Reading Time Taken Comments Blood Pressure 143/89 08/19/2023 3:24 PM [employer] Pulse 71 08/19/2023 3:24 PM [employer] Temperature 36.6 C (97.9 F) 08/19/2023 3:24 PM [employer] Respiratory Rate 18 08/19/2023 3:24 PM [employer] Oxygen Saturation 98% 08/19/2023 3:24 PM [employer] Inhaled Oxygen Concentration - - Weight 110.5 kg (243 lb 9.6 oz) 08/19/2023 3:24 PM [employer] Height 185.4 cm (6' 1 ) 08/19/2023 3:24 PM [employer] Body Mass Index 32.14 08/19/2023 3:24 PM [employer] Functional Status Functional Status Response Date of [...] Interventions: PT Medical Devices Implanted Type Area [employer]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 Shelf Expiration Date Model / Serial / Lot Graft Tissue Avance Nrv 30mm Algrf 4-5mm Implanted:Qty: 1 on 09/12/2020 by Per Glez MD at [facility] Right: Arm [employer] 05/27/2023 [id number] / / [id number] Description:CC Procedures Procedure Name Priority Date/Time Associated Diagnosis Comments BASIC METABOLIC PANEL (CALCIUM TOTAL) Routine 12/16/2022 8:35 AM CDT 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) HEMOGLOBIN A1C Routine 09/11/2020 8:14 AM [employer] from Last 3 Months or Most Recently Relevant to Health Maintenance Results * (ABNORMAL) BASIC METABOLIC PANEL (CALCIUM TOTAL) (12/16/2022 8:35 AM [facility]) BUN 10 7 - 26 mg/dL 12/16/2022 9:29 AM [facility] Creatinine 0.94 0.71 - 1.16 mg/dL 12/16/2022 9:29 AM [facility] Sodium 143 136 - 145 mmol/L 12/16/2022 9:29 AM [facility] Potassium 4.4 3.5 - 4.5 mmol/L 12/16/2022 9:29 AM [facility] Chloride 105 98 - 107 mmol/L 12/16/2022 9:29 AM [facility] CO2 27 22 - 29 mmol/L 12/16/2022 9:29 AM [facility] Glucose 129(H) 70 - 115 mg/dL 12/16/2022 9:29 AM [facility] Calcium 9.3 8.4 - 10.2 mg/dL 12/16/2022 9:29 AM [facility] Anion Gap 15 8 - 18 12/16/2022 9:29 AM [facility] BUN/Creatinine Ratio 11 7 - 23 12/16/2022 9:29 AM [facility] Osmolality Calculated 297 270 - 300 mOsm/kg 12/16/2022 9:29 AM [facility] eGFR by CKD-EPI 90 >=90 mL/min/1.7 3 m2 12/16/2022 9:29 AM [facility] Blood BLOOD SPECIMEN / Unknown Venipuncture / Unknown 12/16/2022 8:35 AM T 12/16/2022 9:02 AM [facility] Fanta Grubbs PA-C LAB - CHEMISTRY O RDERABLES [facility] [address] [place] [address], [facility] [phone] * (ABNORMAL) HEMOGLOBIN A1C (09/11/2020 8:14 AM [facility]) Hemoglobin A1c 7.1(H) 4.4 - 6.3 % 09/11/2020 10:41 AM [facility] Estimated Average Glucose 157 mg/dL 09/11/2020 10:41 AM [facility] Comment: HbA1c Interpretation: Treatment target values recommended by ADA and other clinical organizations should be used to evaluate metabolic control in patients. Treatment Target Values: Normal : < 5.7% Pre-diabetes: 5.7-6.4% Diabetes: Equal to or greater than 6.5% Reference: [place] Diabetes Association Standards of Care in Diabetes -2014 In patients 70 years and older consider HbA1c target range of 7.0-7.5% Reference: Diabetes Mellitus in Older People: Position Statement on behalf of the International Association of Gerontology and Geriatrics (IAGG), the Diabetes Working Democrat for Older People (EDWPOP), and the International Task Force of Experts in Diabetes. Mikhail Godinez, et al. J Citizen [place] Medical Directors Association. 2012 Test results diagnostic of diabetes should be repeated for confirmation. The Sebia Capillary 2 assay for the measurement of HbA1c is a National Glycohemoglobin Standardization Program (NGSP)certified method. Blood BLOOD SPECIMEN / Unknown Venipuncture / Unknown 09/11/2020 8:14 AM [employer] 09/11/2020 8:18 AM [employer] Narrative [facility] - 09/11/2020 10:41 AM [employer] note^<nlbl:[email or web address]_changed> Margarita Plata APRN-COMPRESSOR MECHANIC LAB - CHEMISTRY ORDERABLES [facility] [address] [place] [address], [facility] [phone] from Last 3 Months or Most Recently Relevant to Health Maintenance Insurance Payer Benefit Plan / Group Subscriber ID Effective Dates Phone Address Type [facility] [employer] [facility] [place] [employer] [place] [id number] 02/25/2023-Pres ent [address] [place] [address] Medicaid Managed Care [facility] HMO POS MEDICARE ADV [id number] 07/28/2022-Pres ent [employer] [address] [address] [place] [address] Medicare-Man aged Care MEDICAID - OUT OF STATE [place] PUBLIC [place] [id number] Effective for all dates [address] [address] [place] [address] Medicaid MEDICAID - OUT OF STATE [place] [id number] Effective for all dates [address] [address] [place] [address] Medicaid MEDICARE WPS MEDICARE PART B [id number] 06/27/2020-Pre sent [address] [address] [place] [address] Medicare MEDICAID - OUT OF STATE [place] [id number] Effective for all dates [address] [address] [place] [address] Medicaid MEDICARE WPS MEDICARE PART B [id number] 06/27/2020-Pre sent [address] [address] [place] [address] Medicare MEDICAID - OUT OF STATE MED[place] [id number] Effective for all dates [address] [address] [place] [address] Medicaid MEDICAID - [place] OF STATE MED[place] [id number] Effective for all dates [address] [address] [place] [address] Medicaid MEDICAID - OUT OF STATE MED[place] [id number] Effective for all dates [address] [address] [place] [address] Medicaid [employer] WELLCARE HMO POS MEDICARE ADV [id number] 07/28/2022-Pres ent [employer] [address] [address] [place] [address] Medicare-Man aged Care MEDICAID - OUT OF STATE MED[place] [id number] Effective for all dates [address] [address] [place] [address] Medicaid MEDICARE WPS MEDICARE PART B [id number] 06/27/2020-Pre [place] [address] [address] [place] [address] Medicare [employer] WELLCARE HMO POS MEDICARE ADV [id number] 07/28/2021-Pres ent [employer] [address] [address] [place] [address] Medicare-Man aged Care MEDICAID - OUT OF STATE MEDICAID [facility] PUBLIC AID [id number] Effective for all dates [address] [address] [place] [address] Medicaid MEDICARE WPS MEDICARE PART B [id number] 06/27/2020-Pre sent [address] [address] [place] [address] Medicare [employer]LL[employer] WELLCARE HMO POS MEDICARE ADV [id number] 07/28/2021-Pres ent [employer] [address] [address] [place] [address] Medicare-Man aged Care MEDICAID - OUT OF STATE MEDICAID - [place] PUBLIC AID [id number] Effective for all dates [address] [address] [place] [address] Medicaid MEDICARE WPS MEDICARE PART B [id number] 06/27/2020-Pre [place] [address] [address] [place] [address] Medicare [employer]LL[employer] WELLCARE HMO POS MEDICARE ADV [id number] 07/28/2021-Pres ent [employer] [address] [address] [place] [address] Medicare-Man aged Care MEDICAID - OUT OF STATE MEDICA[place] PUBLIC AID [id number] Effective for all dates [address] [address] [place] [address] Medicaid MEDICARE WPS MEDICARE PART B [id number] 06/27/2020-Pre sent [address] [address] [place] [address] Medicare [employer]LL[employer] WELLCARE HMO POS MEDICARE ADV [id number] 07/28/2021-Pres ent [employer] [address] [address] [place] [address] Medicare-Man aged Care MEDICAID - OUT OF STATE MED[place] [id number] Effective for all dates [address] [address] [place] [address] Medicaid MEDICARE WPS MEDICARE PART B [id number] 06/27/2020-Pre sent [address] [address] [place] [address] Medicare WELLCARE WELLCARE HMO POS MEDICARE ADV [id number] 07/28/2021-Pres ent [employer] [address] [address] [place] [address] Medicare-Man aged Care MEDICAID - OUT OF STATE MEDICAID [facility] PUBLIC AID [id number] Effective for all dates [address] [address] [place] [address] Medicaid MEDICARE WPS MEDICARE PART B [id number] 06/27/2020-Pre sent [address] [address] [place] [address] Medicare WELL[employer]ARE WELLCARE HMO POS MEDICARE ADV [id number] 07/28/2021-Pres ent [employer] [address] [address] [place] [address] Medicare-Man aged Care MEDICAID - OUT OF STATE MEDICAID [place] PUBLIC [place]ID [id number] Effective for all dates [address] [address] [place] [address] Medicaid MEDICARE WPS MEDICARE PART B [id number] 06/27/2020-Pre sent [address] [address] [place] [address] Medicare [employer]LL[employer] WELLCARE HMO POS MEDICARE ADV [id number] 07/28/2021-Pres ent [employer] [address] [address] [place] [address] Medicare-Man aged Care MEDICAID - OUT OF STATE MEDICAID [place] PUBLIC AID [id number] Effective for all dates [address] [address] [place] [address] Medicaid MEDICARE WPS MEDICARE PART B [id number] 06/27/2020-Pre sent [address] [address] [place] [address] Medicare WELLCARE WELLCARE HMO POS MEDICARE ADV [id number] 07/28/2021-Pres ent [employer] [address] [address] [place] [address] Medicare-Man aged Care MEDICAID - OUT OF STATE MEDICAID - [place] PUBLIC AID [id number] Effective for all dates [address] [address] [place] [address] Medicaid [employer]LL[employer] WELLCARE HMO POS MEDICARE ADV [id number] 07/28/2022-Pres ent [employer] [address] [address] [place] [address] Medicare-Man aged Care [employer] WELLCARE HMO POS MEDICARE ADV [id number] 07/28/2021-Pres ent [employer] [address] [address] [place] [address] Medicare-Man aged Care MEDICAID - OUT OF STATE MEDICAID [place] PUBLIC [place] [id number] Effective for all dates [address] [address] [place] [address] Medicaid WELLCARE WELLCARE HMO POS MEDICARE ADV [id number] 07/28/2021-Pres ent [employer] [address] [address] [place] [address] Medicare-Man aged Care MEDICAID - OUT OF STATE MED[place]ID [place] [id number] Effective for all dates [address] [address] [place] [address] Medicaid [employer]LL[employer]ARE WELLCARE HMO POS MEDICARE ADV [id number] 07/28/2021-Pres ent [employer] [address] [address] [place] [address] Medicare-Man aged Care MEDICAID - OUT OF STATE MED[place]ID [place] [id number] Effective for all dates [address] [address] [place] [address] Medicaid [employer]LLCARE WELLCARE HMO POS MEDICARE ADV [id number] 07/28/2021-Pres ent [employer] [address] [address] [place] [address] Medicare-Man aged Care MEDICAID - OUT OF STATE MEDICAID [facility] PUBLIC AID [id number] Effective for all dates [address] [place] [address] Medicaid WELLCARE WELLCARE HMO POS MEDICARE ADV [id number] 07/28/2021-Pres ent [employer] [address] [address] [place] [address] Medicare-Man aged Care MEDICAID - OUT OF STATE MED[place]ID [place] [id number] Effective for all dates [address] [address] [place] [address] Medicaid WELLCARE WELLCARE HMO POS MEDICARE ADV [id number] 07/28/2021-Pres ent [employer] [address] [address] [place] [address] Medicare-Man aged Care MEDICAID - OUT OF STATE MEDICAID [facility] PUBLIC AID [id number] Effective for all dates [address] [address] [place] [address] Medicaid WELLCARE WELLCARE HMO POS MEDICARE ADV [id number] 07/28/2021-Pres ent [employer] [address] [address] [place] [address] Medicare-Man aged Care MEDICAID - OUT OF STATE MEDICAID [facility] PUBLIC AID [id number] Effective for all dates [address] [address] [place] [address] Medicaid WELLCARE WELLCARE HMO POS MEDICARE ADV [id number] 07/28/2021-Pres ent [employer] [address] [address] [place] [address] Medicare-Man aged Care MEDICAID - OUT OF STATE MEDICAID [facility] PUBLIC AID [id number] Effective for all dates [address] [address] [place] [address] Medicaid WELLCARE WELLCARE HMO POS MEDICARE ADV [id number] 07/28/2021-Pres ent [employer] [address] [address] [place] [address] Medicare-Man aged Care MEDICAID - OUT OF STATE MEDICAID - [place] PUBLIC AID [id number] Effective for all dates [address] [address] [place] [address] Medicaid WELLCARE WELLCARE HMO POS MEDICARE ADV [id number] 07/28/2021-Pres ent [employer] [address] [address] [place] [address] Medicare-Man aged Care MEDICAID - OUT OF STATE MEDICAID [facility] PUBLIC AID [id number] Effective for all dates [address] [address] [place] [address] Medicaid WELLCARE WELLCARE HMO POS MEDICARE ADV [id number] 07/28/2021-Pres ent [employer] [address] [address] [place] [address] Medicare-Man aged Care MEDICAID - OUT OF STATE MEDICAID [facility] PUBLIC AID [id number] Effective for all dates [address] [address] [place] [address] Medicaid WELLCARE WELLCARE HMO POS MEDICARE ADV [id number] 07/28/2021-Pres ent [employer] [address] [address] [place] [address] Medicare-Man aged Care MEDICAID - OUT OF STATE MEDICAID [facility] PUBLIC AID [id number] Effective for all dates [address] [address] [place] [address] Medicaid WELLCARE WELLCARE HMO POS MEDICARE ADV [id number] 07/28/2021-Pres ent [employer] [address] [address] [place] [address] Medicare-Man aged Care MEDICAID - OUT OF STATE MED[place]ID [place] PUBLIC AID [id number] Effective for all dates [address] [address] [place] [address] Medicaid WELLCARE WELLCARE HMO POS MEDICARE ADV [id number] 07/28/2021-Pres ent [employer] [address] [address] [place] [address] Medicare-Man aged Care MEDICAID - OUT OF STATE MEDICAID [place] PUBLIC A[place] [id number] Effective for all dates [address] [address] [place] [address] Medicaid WELLCARE WELLCARE HMO POS MEDICARE ADV [id number] 07/28/2021-Pres ent [employer] [address] [address] [place] [address] Medicare-Man aged Care MEDICAID - OUT OF STATE MEDICAID [place] PUBLIC AID [id number] Effective for all dates [address] [address] [place] [address] Medicaid WELLCARE WELLCARE HMO POS MEDICARE ADV [id number] 07/28/2021-Pres ent [employer] [address] [address] [place] [address] Medicare-Man aged Care MEDICAID - OUT OF STATE MEDICAID [place] PUBLIC A[place] [id number] Effective for all dates [address] [address] [place] [address] Medicaid WELLCARE WELLCARE HMO POS MEDICARE ADV [id number] 07/28/2021-Pres ent [employer] [address] [address] [place] [address] Medicare-Man aged Care MEDICAID - OUT OF STATE MED[place]ID [place] [id number] Effective for all dates [address] [address] [place] [address] Medicaid MEDICARE WPS MEDICARE PART B [id number] 06/27/2020-Pre sent [address] [address] [place] [address] Medicare MEDICAID - OUT OF STATE MED[place]ID [place] [id number] Effective for all dates [address] [address] [place] [address] Medicaid MEDICARE WPS MEDICARE PART B [id number] 06/27/2020-Pre sent [address] [address] [place] [address] Medicare MEDICAID - OUT OF STATE MED[place]ID [place] [id number] Effective for all dates [address] [address] [place] [address] Medicaid MEDICARE WPS MEDICARE PART B [id number] 06/27/2020-Pre sent [address] [address] [place] [address] Medicare MEDICAID - OUT OF STATE MED[place]ID [place] [id number] Effective for all dates [address] [address] [place] [address] Medicaid MEDICARE WPS MEDICARE PART B [id number] 06/27/2020-Pre sent [address] [address] [place] [address] Medicare MEDICAID - OUT OF STATE MEDICAID [place] [id number] Effective for all dates [address] [address] [place] [address] Medicaid MEDICARE WPS MEDICARE PART B [id number] 06/27/2020-Pre sent [address] [address] [place] [address] Medicare MEDICAID - OUT OF STATE MEDICAID [facility] PUBLIC AID [id number] Effective for all dates [address] [address] [place] [address] Medicaid MEDICARE WPS MEDICARE PART B [id number] 06/27/2020-Pre sent [address] [address] [place] [address] Medicare MEDICAID - OUT OF STATE MED[place]ID [place] [id number] Effective for all dates [address] [address] [place] [address] Medicaid MEDICAID - OUT OF STATE MEDICAID [place] [id number] Effective for all dates [address] [address] [place] [address] Medicaid MEDICAID - OUT OF STATE MEDICAID [place] [id number] Effective for all dates [address] [address] [place] [address] Medicaid MEDICAID - OUT OF STATE MEDICAID [place] PUBLIC A[place] [id number] Effective for all dates [address] [address] [place] [address] Medicaid MEDICAID - OUT OF [facility] MEDICAID - [place] PUBLIC AID [id number] Effective for all dates [address] [address] [place] [address] Medicaid MEDICAID - OUT OF [facility] MEDICAID - [place] PUBLIC AID [id number] Effective for all dates [address] [place] [address] Medicaid MEDICAID - OUT OF [facility] MEDICAID - [place] PUBLIC AID [id number] Effective for all dates [address] [address] [place] [address] Medicaid MEDICAID - OUT OF [facility] MEDICAID - [place] PUBLIC AID [id number] Effective for all dates [address] [address] [place] [address] Medicaid MEDICARE WPS MEDICARE PART B [id number] 06/27/2020-Pre sent [address] [address] [place] [address] Medicare MEDICARE WPS MEDICARE PART B [id number] 06/27/2020-Pre sent [address] [address] [place] [address] Medicare Advance Directives * Full Code (Latest Code Status on File) Date Activated Date Inactivated Comments 09/11/2020 11:47 PM 09/13/2020 3:46 PM * Full Code Date Activated Date Inactivated Comments 09/10/2020 11:11 AM 09/11/2020 7:25 PM Care Teams Information Systems Consultant Relationship Specialty Start Date End Date Unknown, Provider PCP - General 01/01/18
--- OUTSIDE RECORDS SUMMARY | 2024-09-07 21:00 | XMS_ITS | Clinical Summary ---
Author Organization [facility] [employer] Address [address] [place] [address] Care Team Providers Care Protective Signal Superintendent Name Role Phone Unknown, Provider Primary Care Provider Unavaila ble Source Comments [facility] [employer],non-owned Affiliates and Associated Physician Practices is amultiple site organization consisting of ambulatory clinics and hospital sitesin [place], [place] and [place]. This disclosure is being madepursuant to the Care Everywhere program and may not contain all information available regarding this patient. 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 [...] file Gender Identity Male 09/11/2020 8:16 AM VOCATIONAL 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 TEACHER Sexual Orientation Not on file Last Filed Vital Signs Vital Sign Reading Time Taken Comments Blood Pressure 143/89 08/19/2023 3:24 PM VOCATIONAL CHILDCARE TEACHER Pulse 71 08/19/2023 3:24 PM VOCATIONAL CHILDCARE TEACHER Temperature 36.6 C (97.9 F) 08/19/2023 3:24 PM VOCATIONAL CHILDCARE TEACHER Respiratory Rate 18 08/19/2023 3:24 PM VOCATIONAL CHILDCARE TEACHER Oxygen Saturation 98% 08/19/2023 3:24 PM VOCATIONAL CHILDCARE TEACHER Inhaled Oxygen Concentration - - Weight 110.5 kg (243 lb 9.6 oz) 08/19/2023 3:24 PM VOCATIONAL CHILDCARE TEACHER Height 185.4 cm (6' 1 ) 08/19/2023 3:24 PM VOCATIONAL CHILDCARE TEACHER Body Mass Index 32.14 08/19/2023 3:24 PM VOCATIONAL CHILDCARE TEACHER Plan of Treatment Health Maintenance Due Date [...] Interventions: PT Medical Devices Implanted Type Area Rolled Glass Crosscutter Device Identifier Shelf Expiration Date Model / Serial / Lot Graft Tissue Avance Nrv 30mm Algrf 4-5mm Implanted:Qty: 1 on 09/12/2020 by Per Glez MD at [facility] Right: Arm [employer] 05/27/2023 [id number] / / [id number] Description:CC Procedures Procedure Name Priority Date/Time Associated Diagnosis Comments BASIC METABOLIC PANEL (CALCIUM TOTAL) Routine 12/16/2022 8:35 AM CDT 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) HEMOGLOBIN A1C Routine 09/11/2020 8:14 AM VOCATIONAL CHILDCARE TEACHER from Last 3 Months or Most Recently Relevant to Health Maintenance Results * (ABNORMAL) BASIC METABOLIC PANEL (CALCIUM TOTAL) (12/16/2022 8:35 AM CDT) BUN 10 7 - 26 mg/dL 12/16/2022 9:29 AM CDT [facility] Creatinine 0.94 0.71 - 1.16 mg/dL 12/16/2022 9:29 AM CDT [facility] Sodium 143 136 - 145 mmol/L 12/16/2022 9:29 AM [facility] Potassium 4.4 3.5 - 4.5 mmol/L 12/16/2022 9:29 AM [facility] Chloride 105 98 - 107 mmol/L 12/16/2022 9:29 AM [facility] CO2 27 22 - 29 mmol/L 12/16/2022 9:29 AM [facility] Glucose 129(H) 70 - 115 mg/dL 12/16/2022 9:29 AM [facility] Calcium 9.3 8.4 - 10.2 mg/dL 12/16/2022 9:29 AM [facility] Anion Gap 15 8 - 18 12/16/2022 9:29 AM [facility] BUN/Creatinine Ratio 11 7 - 23 12/16/2022 9:29 AM [facility] Osmolality Calculated 297 270 - 300 mOsm/kg 12/16/2022 9:29 AM [facility] eGFR by CKD-EPI 90 >=90 mL/min/1.7 3 m2 12/16/2022 9:29 AM [facility] Blood BLOOD SPECIMEN / Unknown Venipuncture / Unknown 12/16/2022 8:35 AM T 12/16/2022 9:02 AM [facility] Fanta Grubbs PA-C LAB - CHEMISTRY O RDERABLES [facility] [address] [place] [address], [facility] [phone] * (ABNORMAL) HEMOGLOBIN A1C (09/11/2020 8:14 AM [facility]) Hemoglobin A1c 7.1(H) 4.4 - 6.3 % 09/11/2020 10:41 AM [facility] Estimated Average Glucose 157 mg/dL 09/11/2020 10:41 AM [facility] Comment: HbA1c Interpretation: Treatment target values recommended by ADA and other clinical organizations should be used to evaluate metabolic control in patients. Treatment Target Values: Normal : < 5.7% Pre-diabetes: 5.7-6.4% Diabetes: Equal to or greater than 6.5% Reference: [place] Diabetes Association Standards of Care in Diabetes -2014 In patients 70 years and older consider HbA1c target range of 7.0-7.5% Reference: Diabetes Mellitus in Older People: Position Statement on behalf of the International Association of Gerontology and Geriatrics (IAGG), the Diabetes Working Democrat for Older People (EDWPOP), and the International Task Force of Experts in Diabetes. Mikhail Godinez et al. J [place] Medical Directors Association. 2012 Test results diagnostic of diabetes should be repeated for confirmation. The Sebia Capillary 2 assay for the measurement of HbA1c is a National Glycohemoglobin Standardization Program (NGSP)certified method. Blood BLOOD SPECIMEN / Unknown Venipuncture / Unknown 09/11/2020 8:14 AM VOCATIONAL CHILDCARE TEACHER 09/11/2020 8:18 AM VOCATIONAL CHILDCARE TEACHER Narrative [facility] - 09/11/2020 10:41 AM VOCATIONAL CHILDCARE TEACHER note^<nlbl:demographic_changed> Margarita Plata APRN-HOTEL SECURITY OFFICER LAB - CHEMISTRY ORDERABLES Performing Organization Address City/State/[facility] Co de Phone Number [facility] [address] [place] [address], [facility] [phone] from Last 3 Months or Most Recently Relevant to Health Maintenance Insurance Payer Benefit Plan / Group Subscriber ID Effective Dates Phone Address Type [facility] [place] [facility] [id number] 02/25/2023-Pres ent [address] [place] [address] Medicaid Managed Care WELLCARE WELLCARE HMO POS MEDICARE ADV [id number] 07/28/2022-Pres ent [facility] [address] [address] [place] [address] Medicare-Man aged Care MEDICAID - OUT OF [facility] [place]ID [place] [id number] Effective for all dates [address] [address] [place] [address] Medicaid MEDICAID - OUT OF [facility] [place]ID [place] [id number] Effective for all dates [address] [address] [place] [address] Medicaid MEDICARE WPS MEDICARE PART B [id number] 06/27/2020-Pre sent [address] [address] [place] [address] Medicare MEDICAID - OUT OF STATE [place] [id number] Effective for all dates [address] [address] [place] [address] Medicaid MEDICARE WPS MEDICARE PART B [id number] 06/27/2020-Pre sent [address] [address] [place] [address] Medicare MEDICAID - OUT OF STATE [place] [id number] Effective for all dates [address] [address] [place] [address] Medicaid MEDICAID - OUT OF [facility] [place]ICAID [place] [id number] Effective for all dates [address] [address] [place] [address] Medicaid MEDICAID - OUT OF [facility] [place]ID [place] [id number] Effective for all dates [address] [address] [place] [address] Medicaid WELLCARE WELLCARE HMO POS MEDICARE ADV [id number] 07/28/2022-Pres ent [employer] [address] [address] [place] [address] Medicare-Man aged Care MEDICAID - OUT OF STATE MEDICA[place] [id number] Effective for all dates [address] [address] [place] [address] Medicaid MEDICARE WPS MEDICARE PART B [id number] 06/27/2020-Pre sent [address] [address] [place] [address] Medicare WELLCARE WELLCARE HMO POS MEDICARE ADV [id number] 07/28/2021-Pres ent [employer] PLANS [address] [address] [place] [address] Medicare-Man aged Care MEDICAID - OUT OF STATE [place] [id number] Effective for all dates [address] [address] [place] [address] Medicaid MEDICARE WPS MEDICARE PART B [id number] 06/27/2020-Pre sent [address] [address] [place] [address] Medicare WELLCARE WELLCARE HMO POS MEDICARE ADV [id number] 07/28/2021-Pres ent [employer] PLANS [address] [address] [place] [address] Medicare-Man aged Care MEDICAID - OUT OF STATE MEDICAID [facility] PUBLIC AID [id number] Effective for all dates [address] [address] [place] [address] Medicaid MEDICARE WPS MEDICARE PART B [id number] 06/27/2020-Pre sent [address] [address] [place] [address] Medicare WELLCARE WELLCARE HMO POS MEDICARE ADV [id number] 07/28/2021-Pres ent [employer] PLANS [address] [address] [place] [address] Medicare-Man aged Care MEDICAID - OUT OF STATE MED[place] [id number] Effective for all dates [address] [address] [place] [address] Medicaid MEDICARE WPS MEDICARE PART B [id number] 06/27/2020-Pre sent [address] [address] [place] [address] Medicare WELLCARE WELLCARE HMO POS MEDICARE ADV [id number] 07/28/2021-Pres ent [employer] [facility] PLANS [address] [address] [place] [address] Medicare-Man aged Care MEDICAID - OUT OF STATE MED[place] [id number] Effective for all dates [address] [address] [place] [address] Medicaid MEDICARE WPS MEDICARE PART B [id number] 06/27/2020-Pre sent [address] [address] [place] [address] Medicare WELLCARE WELLCARE HMO POS MEDICARE ADV [id number] 07/28/2021-Pres ent [employer] [facility] PL[employer] [address] [address] [place] [address] Medicare-Man aged Care MEDICAID - OUT OF STATE MED[place] [id number] Effective for all dates [address] [address] [place] [address] Medicaid MEDICARE WPS MEDICARE PART B [id number] 06/27/2020-Pre sent [address] [address] [place] [address] Medicare WELLCARE WELLCARE HMO POS MEDICARE ADV [id number] 07/28/2021-Pres ent [employer] [facility] [address] [address] [place] [address] Medicare-Man aged Care MEDICAID - OUT OF STATE MED[place] [id number] Effective for all dates [address] [address] [place] [address] Medicaid MEDICARE WPS MEDICARE PART B [id number] 06/27/2020-Pre sent [address] [address] [place] [address] Medicare WELLCARE WELLCARE HMO POS MEDICARE ADV [id number] 07/28/2021-Pres ent [employer] [facility] [address] [address] [place] [address] Medicare-Man aged Care MEDICAID - OUT OF STATE MED[place] [id number] Effective for all dates [address] [address] [place] [address] Medicaid MEDICARE WPS MEDICARE PART B [id number] 06/27/2020-Pre sent [address] [address] [place] [address] Medicare WELLCARE WELLCARE HMO POS MEDICARE ADV [id number] 07/28/2021-Pres ent [employer] [facility] [address] [address] [place] [address] Medicare-Man aged Care MEDICAID - OUT OF STATE MED[place] [id number] Effective for all dates [address] [address] [place] [address] Medicaid WELLCARE WELLCARE HMO POS MEDICARE ADV [id number] 07/28/2022-Pres ent [employer] [facility] [address] [address] [place] [address] Medicare-Man aged Care WELLCARE WELLCARE HMO POS MEDICARE ADV [id number] 07/28/2021-Pres ent [employer] [facility] [address] [address] [place] [address] Medicare-Man aged Care MEDICAID - OUT OF STATE MEDICA[place] [id number] Effective for all dates [address] [address] [place] [address] Medicaid WELLCARE WELLCARE HMO POS MEDICARE ADV [id number] 07/28/2021-Pres ent [employer] [facility] [address] [address] [place] [address] Medicare-Man aged Care MEDICAID - OUT OF STATE MED[place]ID [place] [id number] Effective for all dates [address] [address] [place] [address] Medicaid WELLCARE WELLCARE HMO POS MEDICARE ADV [id number] 07/28/2021-Pres ent [employer] [facility] [address] [address] [place] [address] Medicare-Man aged Care MEDICAID - OUT OF STATE [place] [id number] Effective for all dates [address] [address] [place] [address] Medicaid WELLCARE WELLCARE HMO POS MEDICARE ADV [id number] 07/28/2021-Pres ent [employer] [facility] [address] [address] [place] [address] Medicare-Man aged Care MEDICAID - OUT OF STATE MEDICAID [facility] PUBLIC AID [id number] Effective for all dates [address] [address] [place] [address] Medicaid WELLCARE WELLCARE HMO POS MEDICARE ADV [id number] 07/28/2021-Pres ent [employer] [facility] [address] [address] [place] [address] Medicare-Man aged Care MEDICAID - OUT OF STATE MED[place]ID [place] [id number] Effective for all dates [address] [address] [place] [address] Medicaid WELLCARE WELLCARE HMO POS MEDICARE ADV [id number] 07/28/2021-Pres ent [employer] [facility] [address] [address] [place] [address] Medicare-Man aged Care MEDICAID - OUT OF STATE MEDICAID [facility] PUBLIC AID [id number] Effective for all dates [address] [address] [place] [address] Medicaid WELLCARE WELLCARE HMO POS MEDICARE ADV [id number] 07/28/2021-Pres ent [employer] [facility] [address] [address] [place] [address] Medicare-Man aged Care MEDICAID - OUT OF STATE [place] [id number] Effective for all dates [address] [address] [place] [address] Medicaid WELLCARE WELLCARE HMO POS MEDICARE ADV [id number] 07/28/2021-Pres ent [employer] [facility] [address] [address] [place] [address] Medicare-Man aged Care MEDICAID - OUT OF [place] [id number] Effective for all dates [address] [address] [place] [address] Medicaid WELLCARE WELLCARE HMO POS MEDICARE ADV [id number] 07/28/2021-Pres ent [employer] [facility] [address] [address] [place] [address] Medicare-Man aged Care MEDICAID - OUT OF STATE MED[place] [id number] Effective for all dates [address] [address] [place] [address] Medicaid WELLCARE WELLCARE HMO POS MEDICARE ADV [id number] 07/28/2021-Pres ent [employer] [facility] [address] [address] [place] [address] Medicare-Man aged Care MEDICAID - OUT OF STATE MED[place] [id number] Effective for all dates [address] [address] [place] [address] Medicaid WELLCARE WELLCARE HMO POS MEDICARE ADV [id number] 07/28/2021-Pres ent [employer] [facility] [address] [address] [place] [address] Medicare-Man aged Care MEDICAID - OUT OF STATE MEDICAID [place] [id number] Effective for all dates [address] [address] [place] [address] Medicaid WELLCARE WELLCARE HMO POS MEDICARE ADV [id number] 07/28/2021-Pres ent [facility] [facility] [employer] [address] [address] [place] [address] Medicare-Man aged Care MEDICAID - OUT OF STATE MEDICAID [place] [id number] Effective for all dates [address] [address] [place] [address] Medicaid WELLCARE WELLCARE HMO POS MEDICARE ADV [id number] 07/28/2021-Pres ent [employer] [facility] [employer] [address] [address] [place] [address] Medicare-Man aged Care MEDICAID - OUT OF STATE MEDICAID [place] [id number] Effective for all dates [address] [address] [place] [address] Medicaid WELLCARE WELLCARE HMO POS MEDICARE ADV [id number] 07/28/2021-Pres ent [employer] [facility] [employer] [address] [address] [place] [address] Medicare-Man aged Care MEDICAID - OUT OF STATE MED[place]ID [place] [id number] Effective for all dates [address] [address] [place] [address] Medicaid WELLCARE WELLCARE HMO POS MEDICARE ADV [id number] 07/28/2021-Pres ent [employer] [facility] [employer] [address] [address] [place] [address] Medicare-Man aged Care MEDICAID - OUT OF STATE MED[place]ID [place] [id number] Effective for all dates [address] [address] [place] [address] Medicaid WELLCARE WELLCARE HMO POS MEDICARE ADV [id number] 07/28/2021-Pres ent [employer] [facility] [address] [address] [place] [address] Medicare-Man aged Care MEDICAID - OUT OF STATE MEDICAID [place] [id number] Effective for all dates [address] [address] [place] [address] Medicaid WELLCARE WELLCARE HMO POS MEDICARE ADV [id number] 07/28/2021-Pres ent [employer] [facility] [employer] [address] [address] [place] [address] Medicare-Man aged Care MEDICAID - OUT OF STATE MEDICAID [place] [id number] Effective for all dates [address] [address] [place] [address] Medicaid MEDICARE WPS MEDICARE PART B [id number] 06/27/2020-Pre sent [address] [address] [place] [address] Medicare MEDICAID - OUT OF STATE MEDICAID [place] [id number] Effective for all dates [address] [address] [place] [address] Medicaid MEDICARE WPS MEDICARE PART B [id number] 06/27/2020-Pre sent [address] [address] [place] [address] Medicare MEDICAID - OUT OF STATE MEDICAID [place] [id number] Effective for all dates [address] [address] [place] [address] Medicaid MEDICARE WPS MEDICARE PART B [id number] 06/27/2020-Pre sent [address] [address] [place] [address] Medicare MEDICAID - OUT OF STATE MEDICAID [place] [id number] Effective for all dates [address] [address] [place] [address] Medicaid MEDICARE WPS MEDICARE PART B [id number] 06/27/2020-Pre sent [address] [address] [place] [address] Medicare MEDICAID - OUT OF STATE MEDICAID [place] [id number] Effective for all dates [address] [address] [place] [address] Medicaid MEDICARE WPS MEDICARE PART B [id number] 06/27/2020-Pre sent [address] [address] [place] [address] Medicare MEDICAID - OUT OF STATE MEDICAID [place] [id number] Effective for all dates [id number] [place] [address] Medicaid MEDICARE WPS MEDICARE PART B [id number] 06/27/2020-Pre sent [address] [address] [place] [address] Medicare MEDICAID - OUT OF STATE MEDICAID - [place] [id number] Effective for all dates [id number] [place] [address] Medicaid MEDICAID - OUT OF STATE MEDICAID [place] [id number] Effective for all dates [address] [place] [address] Medicaid MEDICAID - OUT OF STATE MEDICAID - [place] [id number] Effective for all dates [address] [place] [address] Medicaid MEDICAID - OUT OF STATE MEDICAID - [place] [id number] Effective for all dates [id number] [place] [address] Medicaid MEDICAID - OUT OF STATE MEDICAID - [place] [id number] Effective for all dates [id number] [place] [address] Medicaid MEDICAID - OUT OF STATE MEDICAID - [place] [id number] Effective for all dates [id number] [place] [address] Medicaid MEDICAID - OUT OF STATE MEDICAID - [place] [id number] Effective for all dates [id number] [place] [address] Medicaid MEDICAID - OUT OF STATE MEDICAID - [place] [id number] Effective for all dates [phone] [address] [address] [place] [address] Medicaid MEDICARE WPS MEDICARE PART B [id number] 06/27/2020-Pre sent [address] [address] [place] [address] Medicare MEDICARE WPS MEDICARE PART B [id number] 06/27/2020-Pre sent [address] [address] [place] [address] Medicare Advance Directives * Full Code (Latest Code Status on File) Date Activated Date Inactivated Comments 09/11/2020 11:47 PM 09/13/2020 3:46 PM * Full Code Date Activated Date Inactivated Comments 09/10/2020 11:11 AM 09/11/2020 7:25 PM Care Teams Protective Signal Superintendent Relationship Specialty Start Date End Date Unknown, Provider PCP - General 01/01/18
--- OUTSIDE RECORDS SUMMARY | 2024-09-07 21:00 | XMS_ITS | Clinical Summary ---
Author Organization [facility] Medical Office Building A Address [address] [place] [address] Care Team Providers Care Vacuum Cooker Operator Name Role Phone Cecile Terrell NP Primary Care Provider [phone] Allergies No known active allergies Medications albuterol [...] (07/24/2020): Added automatically from request for surgery [id number] Positive colorectal cancer s creening using DNA-based stool test 07/24/2020 Overview (07/24/2020): Added automatically from request for surgery [id number] PVD (peripheral vascular disease) (CMS/HCC) 02/2020 Assessment [...] on file Legal Sex Male 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 Gender Identity Not on file Sexual Orientation Not on file Obstetrics History Last Filed Vital Signs Vital Sign Reading Time Taken Comments Blood Pressure 114/70 03/13/2021 1:17 PM CDT Pulse 66 03/13/2021 1:17 PM CDT Temperature 36 C (96.8 F) 08/22/2020 2:57 PM MECHANICAL PRESS OPERATOR Respiratory Rate 14 03/13/2021 1:17 PM CDT Oxygen Saturation 100% 08/22/2020 2:57 PM MECHANICAL PRESS OPERATOR Inhaled Oxygen Concentration - - Weight 112.5 [...] 11:45 AM CDT COLONOSCOPY 08/22/2020 1:47 PM MECHANICAL PRESS OPERATOR CTA ABDOMINAL AORTA AND BILATERAL ILIOFEMORAL RUNOFF [...] BLOOD ORDERABL ES Final Result [facility] ([place]) [facility] [place] [address] * (ABNORMAL) Hemoglobin A1c (03/27/2022 [...] and children were not included. (Diabetes Care 31:1873-1602, 2008). The eAG is not equivalent to a fasting glucose. Blood 03/27/2022 12:5 2 PM CDT 03/27/2022 3:20 PM CDT Jt Banegas MD LAB BLOOD ORDERABL ES Final Result [facility] Department [place] [address] * Lipid panel (10/31/2021 11:45 AM CDT) [...] MD LAB BLOOD ORDERABL ES Final Result [facility] [place] [address] Department of Laboratories [place], [place] [id number] * COLONOSCOPY (08/22/2020 1:47 PM MECHANICAL PRESS OPERATOR) Anatomical Region Laterality Modality Other Narrative Procedure Note Ignacio Landers MD - 08/22/2020 1:47 PM CST [facility] Patient Name: Philip Barron Procedure Date: 08/22/2020 1:47 PM Date of : 1955 Admit Type: Outpatient Age: 65 Gender: Male Attending MD: Ignacio Landers M.D. Room: [facility] ENDOSCOPY ROOM 1 Note Status: Finalized Patient [...] passed under direct vision.The Pediatric Colonoscope [id number] was introduced through the anus and advanced [...] 1:47 PM Procedure Code(s): --- Professional --- 91064, Colonoscopy, flexible; with biopsy, single or multiple Diagnosis Code(s): --- Professional --- Z12.11, Encounter for screening for malignant neoplasm of colon K64.8, Other hemorrhoids D12.5, Benign neoplasm of sigmoid colon K57.30, Diverticulosis of large intestine without perforation orabscess without bleeding CPT copyright 2017 [employer]. All rights reserved. The codes documented in this report are preliminary and upon textile machine operator reviewmay be revised to meet current compliance requirements. Recognized by the [employer] for promoting quality [...] months to document stability. Electronically signed by: Joon Cortez M.D. Narrative 04/04/2020 4:42 PM CDT [...] Most Recently Relevant to Health Maintenance Insurance [facility] MEDICARE O [facility] MEDICARE IDPA MANAGED MEDICARE GENERIC RISK OTHER [facility] MEDICARE HMO [facility] Advance Directives For more information, please contact: [phone] * Full Code (Latest Code Status on File) Date Activated Date Inactivated Comments 08/22/2020 1:38 PM 08/22/2020 7:14 PM * Full Code Date Activated Date Inactivated Comments 08/22/2020 1:38 PM 08/22/2020 1:38 PM Care Teams Vacuum Cooker Operator Relationship Specialty Start Date End Date Cecile Terrell NP [address] [address] PCP - General Family Medicine 03/13/21
--- OUTSIDE RECORDS SUMMARY | 2024-09-07 21:00 | XMS_ITS | Referral Summary ---
Author Organization [facility] Medical Office Building A Address [address] [place] [address] Care Team Providers Care Admissions Dean Name Role Phone Cecile Terrell NP Primary Care Provider [phone] Allergies No known active allergies Medications albuterol [...] (07/24/2020): Added automatically from request for surgery [id number] Positive colorectal cancer s creening using DNA-based stool test 07/24/2020 Overview (07/24/2020): Added automatically from request for surgery [id number] PVD (peripheral vascular disease) (CMS/HCC) 02/2020 Assessment [...] on file Legal Sex Male 9:22 AM 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] Result DALLIN WILCOX ([place]) 1 [facility] Department of Laboratories [place], [place] [id number] * (ABNORMAL) Hemoglobin A1c (03/27/2022 12:52 PM [...] and children were not included. (Diabetes Care 31:5224-9828, 2008). The eAG is not equivalent to a fasting glucose. Blood 03/27/2022 12:5 2 PM CDT 03/27/2022 3:20 PM CDT Jt Banegas MD LAB BLOOD ORDERABL ES Final Result DALLIN WILCOX ([place]) 1 [facility] [place] [address] * Lipid panel (10/31/2021 11:45 AM CDT) [...] LAB BLOOD ORDERABL ES Final Result [facility] [place] 1 [facility] [place] [address] * COLONOSCOPY (08/22/2020 1:47 PM INFANTRY INDIRECT FI[employer]MEMBER) Anatomical Region Laterality Modality Other Narrative Procedure Note Ignacio Landers MD - 08/22/2020 1:47 PM CST [facility] Patient Name: Philip Barron Procedure Date: 08/22/2020 1:47 PM Date of : 1955 Admit Type: Outpatient Age: 65 Gender: Male Attending MD: Ignacio Landers M.D. Room: [facility] RO[facility] 1 Note Status: Finalized Patient [...] passed under direct vision.The Pediatric Colonoscope [id number] was introduced through the anus and advanced [...] 1:47 PM Procedure Code(s): --- Professional --- 98310, Colonoscopy, flexible; with biopsy, single or multiple Diagnosis Code(s): --- Professional --- Z12.11, Encounter for screening for malignant neoplasm of colon K64.8, Other hemorrhoids D12.5, Benign neoplasm of sigmoid colon K57.30, Diverticulosis of large intestine without perforation orabscess without bleeding CPT copyright 2017 [employer]. All rights reserved. The codes documented in this report are preliminary and upon customer sales distributor reviewmay be revised to meet current compliance [...] Most Recently Relevant to Health Maintenance Insurance [facility] MEDICARE O [facility] MEDICARE IDPA MANAGED MEDICARE GENERIC RISK [facility] Advance Directives For more information, please contact: [phone] * Full Code (Latest Code Status on File) Date Activated Date Inactivated Comments 08/22/2020 1:38 PM 08/22/2020 7:14 PM * Full Code Date Activated Date Inactivated Comments 08/22/2020 1:38 PM 08/22/2020 1:38 PM Care Teams Admissions Dean Relationship Specialty Start Date End Date Cecile Terrell NP [address] [address] PCP - General Family Medicine 03/13/21
--- OUTSIDE RECORDS SUMMARY | 2024-09-07 21:00 | XMS_ITS | Patient Health Summary ---
Author Organization [facility] Address [address] [place] [address] Care Team Providers Care Winterizer Name Role Phone Unknown, Provider Primary Care Provider Unavaila ble Note from [facility],non-owned Affiliates and Associated Physician Practices is amultiple site organization consisting of ambulatory clinics and hospital sitesin [place], [place], [place] and [place]. This disclosure is being madepursuant to the Care Everywhere program and may not contain all information available regarding this patient. 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 [...] file Gender Identity Male 09/11/2020 8:16 AM [employer] Sexual Orientation Not on file Last Filed Vital Signs Vital Sign Reading Time Taken Comments Blood Pressure 143/89 08/19/2023 3:24 PM [employer] Pulse 71 08/19/2023 3:24 PM [employer] Temperature 36.6 C (97.9 F) 08/19/2023 3:24 PM [employer] Respiratory Rate 18 08/19/2023 3:24 PM [employer] Oxygen Saturation 98% 08/19/2023 3:24 PM [employer] Inhaled Oxygen Concentration - - Weight 110.5 kg (243 lb 9.6 oz) 08/19/2023 3:24 PM [employer] Height 185.4 cm (6' 1 ) 08/19/2023 3:24 PM [employer] Body Mass Index 32.14 08/19/2023 3:24 PM [employer] Medical Devices Implanted Type Area Early Childhood Assistant Device Identifier Shelf Expiration Date Model / Serial / Lot Graft Tissue Avance Nrv 30mm Algrf 4-5mm Implanted:Qty: 1 on 09/12/2020 by Per Glez MD at [facility] Right: Arm [employer] 05/27/2023 [id number] / / [id number] Description:CC Procedures * VAS LEFT ARTERIAL DUPLEX [...] 07/04/2021) * ENDOTRACHEAL TUBE NOTE(Performed 07/04/2021) * ID REVISE MEDIAN N/CARPAL TUNNEL SURG(Performed 07/04/2021) Performed [...] 09/13/2020) Performed for Atrial fibrillation, unspecified type ([facility]) * MAGNESIUM BLOOD(Performed 09/13/2020) * CBC W AUTO DIFFERENTIAL(Performed 09/13/2020) * BASIC METABOLIC PANEL (CALCIUM TOTAL)(Performed 09/13/2020) * GLUCOSE - POINT OF CARE(Performed 09/12/2020) * GLUCOSE - POINT OF CARE(Performed 09/12/2020) * GLUCOSE - POINT OF CARE(Performed 09/12/2020) * ENDOTRACHEAL TUBE NOTE(Performed 09/12/2020) * ID MUSC/TENDON REPAIR EACH; ARM/ELBOW(Performed 09/12/2020) Performed for [...] 09/10/2020) * ENDOTRACHEAL TUBE NOTE(Performed 09/10/2020) * ID EXPLORE WOUND,EXTREMITY(Performed 09/10/2020) Performed for Disorder * [...] LEFT ARTERIAL DUPLEX LE (09/08/2023 10:47 AM [employer]) Anatomical Region Laterality Modality Lower Extremity Intravascular Ul trasound 09/08/2023 9:36 AM [employer] Narrative Procedure Note Rob Yancey MD - 09/11/2023 Jono Morgan MD VASCULAR LAB ORDER DERRICK * VAS ARTERIAL ANKLE ARM INDEX (09/08/2023 10:47 AM [employer]) Anatomical Region Laterality Modality Ankle / Foot, Upper Extremity In travascular Ultrasound 09/08/2023 9:54 AM [employer] Narrative Procedure Note Rob Yancey MD - 09/09/2023 Authorizing Provider Result Kate Morgan MD VASCULAR LAB ORDER DERRICK * VAS CAROTID DUPLEX BILATERAL (09/08/2023 10:36 AM [employer]) Anatomical Region Laterality Modality Neck Intravascular Ul trasound 09/08/2023 9:07 AM [employer] Narrative Procedure Note Rob Yancey MD - [...] evaluation, please review the evaluation forms in [facility]. For details on monitored clinical parameters during the intra-service sedation time, please review the procedure nurse documentation in [facility]. Sarwat De Leon MD have personally reviewed [...] angiography to further evaluate degree of stenosis. Inspector Structural Bonding: Franchise Development Manager(s): Andrew Root Vessels: Ultrasound Guided Access of [...] this adult patient was ordered by the shuffle board operator, administered intravenously in my presence, and [...] patient evaluation, please review the evaluation in [facility]. For details on monitored clinical parameters during the intra-service sedation time, please review the procedure nurse documentation in [facility]. Procedural detail: The risks, benefits, and alternatives [...] Following a series of exchanges, a 5 Angolan 11 cm Glidesheath slender was placed in the radial artery. A radial angiogram was performed through the sheath. A spasmolytic cocktail containing 3000u heparin, 2.5mg verapamil, and 200mcg of nitroglycerin was administered. A 5 Angolan Glidecath Golden 2 diagnostic catheter along with [...] angiography to further evaluate degree of stenosis. Inspector Structural Bonding: Franchise Development Manager(s): Andrew Root Vessels: Ultrasound Guided Access of [...] this adult patient was ordered by the shuffle board operator, administered intravenously in my presence, and [...] patient evaluation, please review the evaluation in [facility]. For details on monitored clinical parameters during the intra-service sedation time, please review the procedure nurse documentation in [facility]. Procedural detail: The risks, benefits, and alternatives [...] needle. Followinga series of exchanges, a 5 Angolan 11 cm Glidesheath slender was placed inthe radial artery. A radial angiogram was performed through the sheath. A spasmolytic cocktail containing 3000u heparin, 2.5mg verapamil, [id number] of nitroglycerin was administered. A 5 Angolan Glidecath Golden 2 diagnostic catheter along with [...] the arterial system.Hemostasis was achieved using a ProspX radial band closure device. Hemostasis was immediate [...] intravenously in my presence, and monitored by [facility] as an independent trained observer who was present throughout the procedure. The following parameters were monitored: oxygen saturation, heart rate, blood pressure, and response to care. For details on pre-moderate sedation and post-moderate sedation patient evaluation,please review the evaluation forms in [facility]. For details on monitored clinical parameters during the intra-service sedation time, please review the procedure nurse documentation in [facility]. ISarwat MD have personally reviewed and interpreted [...] Type Cap Fingerstick 2022 1:50 PM CDT [facility] Blood BLOOD SPECIMEN / Unknown 12/16/2022 8:49 AM CDT 12/16/2022 1:50 PM CDT Sarwat Lanza MD LAB - POINT OF CARE ORDERABLES Performing Organization Address [facility] Co de Phone Number [address] [phone], [facility] [phone] * PT-INR [facility] (12/16/2022 8:35 AM CDT) Only the most recent of2 resultswithin the time period is included. PT 14.4 12.1 - 14.8 Seconds 12/16/2022 9:26 AM CDT [facility] INR 1.1 See Comment 12/16/2022 9:26 AM T [facility] Comment:The suggested therap eutic range for standard coumadin (warfarin) therapy is an INR of 2.0-3.0. For high-risk patients (Mechanical Mitral Valve Prosthesis, etc.), the suggested prophylactic therapeutic range is an INR of 2.5-3.5. Blood BLOOD SPECIMEN / Unknown Venipuncture / Unknown 12/16/2022 8:35 AM CDT 12/16/2022 9:02 AM CDT Fanta Grubbs PA-C LAB - COAGULATION ORDERABLES Performing Organization Address [facility]/ZIP Co de Phone Number [address] [address], [facility] [phone] * (ABNORMAL) CBC W AUTO DIFFERENTIAL (12/16/2022 8:35 AM CDT) Only the most recent of5 resultswithin the time period is included. WBC 7.6 3.5 - 10.5 10 3/uL 12/16/2022 9:06 AM CDT [facility] RBC 4.53 4.30 - 5.70 10 6/uL 12/16/2022 9:06 AM [facility] Hemoglobin 12.9 12.0 - 17.6 g/dL 12/16/2022 9:06 AM [facility] Hematocrit 40.6 35.2 - 51.7 % 12/16/2022 9:06 AM [facility] MCV 89.6 80.7 - 98.3 fL 12/16/2022 9:06 AM [facility] MCH 28.5 26.7 - 34.0 pg 12/16/2022 9:06 AM [facility] MCHC 31.8 30.8 - 35.9 g/dL 12/16/2022 9:06 AM [facility] RDW-SD 46.0 36.0 - 50.0 fL 12/16/2022 9:06 AM [facility] RDW-CV 14.0 11.2 - 14.8 % 12/16/2022 9:06 AM [facility] Platelet Count 214 150 - 400 10 3/uL 12/16/2022 9:06 AM [facility] MPV 10.5 9.4 - 12.9 fL 12/16/2022 9:06 AM [facility] nRBC Absolute 0.00 0 10 3/uL 12/16/2022 9:06 AM [facility] nRBC Auto 0.0 0 /100 WBC 12/16/2022 9:06 AM [facility] Neutrophils % 70.7(H) 35.0 - 70.0 % 12/16/2022 9:06 AM [facility] Lymphocytes % 19.7(L) 20.0 - 43.0 % 12/16/2022 9:06 AM [facility] Monocytes % 6.4 5.0 - 13.0 % 12/16/2022 9:06 AM [facility] Eosinophils % 2.1 0.0 - 6.0 % 12/16/2022 9:06 AM [facility] Basophil % 0.4 0.0 - 2.0 % 12/16/2022 9:06 AM [facility] Neutrophils Absolute 5.39 1.60 - 7.00 10 3/uL 12/16/2022 9:06 AM [facility] Lymphocyte Absolute 1.50 1.10 - 3.90 10 3/uL 12/16/2022 9:06 AM [facility] Monocytes Absolute 0.49 0.26 - 1.07 10 3/uL 12/16/2022 9:06 AM [facility] Eosinophils Absolute 0.16 0.00 - 0.47 10 3/uL 12/16/2022 9:06 AM [facility] Basophils Absolute 0.03 0.00 - 0.08 10 3/uL 12/16/2022 9:06 AM [facility] Immature Granulocytes % 0.7 0.0 - 1.0 % 12/16/2022 9:06 AM [facility] Immature Granulocytes Absolute 0.05 12/16/2022 9:06 AM [facility] Blood BLOOD SPECIMEN / Unknown Venipuncture / Unknown 12/16/2022 8:35 AM CDT 12/16/2022 9:02 AM CDT Fanta Grubbs PA-C LAB - HEMATOLOGY ORDERABLES [facility] [address] [place] [address], [facility] [phone] * (ABNORMAL) BASIC METABOLIC PANEL (CALCIUM TOTAL) (12/16/2022 8:35 AM CDT) Only the most recent of5 resultswithin the time period is included. BUN 10 7 - 26 mg/dL 12/16/2022 9:29 AM [facility] Creatinine 0.94 0.71 - 1.16 mg/dL 12/16/2022 9:29 AM [facility] Sodium 143 136 - 145 mmol/L 12/16/2022 9:29 AM [facility] Potassium 4.4 3.5 - 4.5 mmol/L 12/16/2022 9:29 AM [facility] Chloride 105 98 - 107 mmol/L 12/16/2022 9:29 AM [facility] CO2 27 22 - 29 mmol/L 12/16/2022 9:29 AM [facility] Glucose 129(H) 70 - 115 mg/dL 12/16/2022 9:29 AM [facility] Calcium 9.3 8.4 - 10.2 mg/dL 12/16/2022 9:29 AM [facility] Anion Gap 15 8 - 18 12/16/2022 9:29 AM [facility] BUN/Creatinine Ratio 11 7 - 23 12/16/2022 9:29 AM [facility] Osmolality Calculated 297 270 - 300 mOsm/kg 12/16/2022 9:29 AM [facility] eGFR by CKD-EPI 90 >=90 mL/min/1.7 3 m2 12/16/2022 9:29 AM [facility] Blood BLOOD SPECIMEN / Unknown Venipuncture / Unknown 12/16/2022 8:35 AM CDT 12/16/2022 9:02 AM CDT Fanta Grubbs PA-C LAB - CHEMISTRY O RDERABLES Performing Organization Address City/State/[facility] Co de Phone Number [facility] [address] [place] [phone], [facility] [phone] * CARDIAC RHYTHM STRIP ORDER (07/09/2021 5:42 PM [employer]) Only the most recent of2 resultswithin the time period is included. Narrative 07/09/2021 5:42 PM [employer] Ordered by an unspecified provider. Scanned Document CARDIAC SERVICES ORD ERABLES * ETT LINE PERFORMABLE (07/04/2021 11:28 AM [employer]) Narrative Mckenzie Hagen APRN-CRNA - 07/04/2021 11:28 AM [employer] Mckenzie Hagen APRN-CRNA 07/04/2021 11:29 AM Endotracheal Tube Placement: Patient Location: OR. Intubation Event Date/Time: 07/04/2021 11:18 AM Procedure: intubation ([id number]). Procedure Section: Sedation: under general anesthesia. Indications [...] CDT Per Marrufo MD 05/31/2021 3:[address], [address] [phone] Patient: Philip Barron V #: Physician: Per Marrufo MD Sex: Male ID#: [id number] Ref Phys: Angela Garvey. PA-Med : 1955 Date: 05/31/2021 Sales Agent Insurance: Jona Cool Patient Complaints: The patient is [...] of brachial plexopathy. Per Marrufo MD Diplomate, [place] Board of Psychiatry and Neurology Board Certified [...] ORDERABLES * APHERESIS/TRANSFUSION ORDER (09/18/2020 6:59 PM [employer]) Narrative 09/18/2020 6:59 PM [employer] Ordered by an unspecified provider. Scanned Document NURSING - VITAL SIGN S AND ASSESSMENT * EKG 12-LEAD (09/13/2020 6:03 AM [employer]) Ventricular Rate 73 BPM [facility] Atrial Rate 73 BPM [facility] P-R Interval 138 ms [facility] QRS Duration ms 90 ms [facility] Q-T Interval ms 412 ms [facility] QTC Calculation (Bezet) 453 ms [facility] Calculated R [place] 31 degrees [facility] Calculated T [place] 72 degrees [facility] Interpretation EKG NORMAL SINUS RHYTHM NONSPECIFIC T WAVE ABNORMALITY ABNORMAL ECG Confirmed by MD Claudia, Iker ([id number]) on 09/13/2020 7:50:42 AM [facility] MUSE 09/13/2020 6:03 AM [employer] 09/13/2020 7:50 AM [employer] Fer Jasso DO ECG ORDERABLES Performing Organization Address City/[facility]/ZIP Co de Phone Number [facility] MUSE * MAGNESIUM BLOOD (09/13/2020 2:51 AM [employer] EX[employer]) Only the most recent of3 resultswithin the time period is included. Magnesium 2.0 1.6 - 2.6 mg/dL 09/13/2020 4:42 AM [employer]EC [facility] Blood BLOOD SPECIMEN / Unknown Lab Venipuncture / Unknown 09/13/2020 2:51 AM [employer] 09/13/2020 4:13 AM [employer] Fer Jasso DO LAB - CHEMISTRY ORDE RABLES Performing Organization Address City/[facility] Co de Phone Number [facility] [address] [phone] * ETT LINE PERFORMABLE (09/12/2020 1:04 PM [employer]) Narrative Hayley Johnston APRN-CRNA - 09/12/2020 1:04 PM [employer] Hayley Johnston APRN-CRNA 09/12/2020 1:04 PM Endotracheal Tube Placement: Patient Location: OR. Intubation Event Date/Time: 09/12/2020 12:21 PM Procedure: intubation ([id number]). Procedure Section: Sedation: under general anesthesia. Indications [...] RBC UNIT(S), 1 Units (09/12/2020 2:17 AM [employer]) Only the most recent of2 resultswithin the time period is included. [facility] Unit Description N/A [facility] BLOOD BANK LAB Blood Bank BLOOD SPECIMEN / Unknown 09/10/2020 11:30 AM [employer] Sergio Vela DO LAB - BLOOD BANK ORD ERABLES Performing Organization Address [facility]/ZIP Co de Phone Number [facility] BLOOD BANK LAB [address] [place] [address], [facility] [phone] * PHOSPHORUS BLOOD (09/12/2020 1:58 AM [employer] EX[employer]) Only the most recent of2 resultswithin the time period is included. [facility] Phosphorus 3.7 2.3 - 4.7 mg/dL 09/12/2020 2:47 AM [employer] EXEC [facility] Blood BLOOD SPECIMEN / Unknown Venipuncture / Unknown 09/12/2020 1:58 AM [employer] 09/12/2020 2:26 AM [employer] Tomer Nolasco MD LAB - CHEMISTRY JANETTE SANDHU [facility] [address] [place] [address] * (ABNORMAL) HEMOGLOBIN A1C (09/11/2020 8:14 AM [employer] EXEC) [facility] Hemoglobin A1c 7.1(H) 4.4 - 6.3 % 09/11/2020 10:41 AM [facility] Estimated Average Glucose 157 mg/dL 09/11/2020 10:41 AM [facility] Comment: HbA1c Interpretation: Treatment target values recommended by ADA and other clinical organizations should be used to evaluate metabolic control in patients. Treatment Target Values: Normal : < 5.7% Pre-diabetes: 5.7-6.4% Diabetes: Equal to or greater than 6.5% Reference: [place] Diabetes Association Standards of Care in Diabetes -2014 In patients 70 years and older consider HbA1c target range of 7.0-7.5% Reference: Diabetes Mellitus in Older People: Position Statement on behalf of the International Association of Gerontology and Geriatrics (IAGG), the Diabetes Working Green Party for Older People (EDWPOP), and the International Task Force of Experts in Diabetes. Mikhail Godinez, et al. J [employer] Medical Directors Association. 2012 Test results diagnostic of diabetes should be repeated for confirmation. The Sebia Capillary 2 assay for the measurement of HbA1c is a National Glycohemoglobin Standardization Program (NGSP)certified method. Blood BLOOD SPECIMEN / Unknown Venipuncture / Unknown 09/11/2020 8:14 AM [employer] 09/11/2020 8:18 AM [employer] EXEC Narrative [facility] - 09/11/2020 10:41 AM [employer] note^<nlbl:demographic_changed> Margarita Plata APRN-SOLDER [employer] MAKER LAB - CHEMISTRY ORDERABLES Performing Organization Address City/State/[facility] Co de Phone Number [address] [phone], [facility] [phone] * XR CHEST 1VW PORTABLE (09/11/2020 4:37 AM [employer]) Only the most recent of2 resultswithin the time period is included. Anatomical Region Laterality Modality Chest Radiographic Emilee ging 09/11/2020 8:47 AM [employer] Impressions 09/11/2020 2:46 PM [employer] FINDINGS/IMPRESSION: There is a small left pleural effusion with associated compressive atelectasis. There is mild bilateral lower lung field opacities, likely representing atelectasis and/or pneumonia. There is no pneumothorax. The cardiomediastinal silhouette is normal. The visible bony thorax is intact. Dictated by Alec Dumas MD (human resources vice president). I, Dr. HOEP KIM have personally reviewed and interpreted this examination/study. This report was electronically signed by HOPE KIM on 09/11/2020 2:46 PM . Narrative 09/11/2020 2:46 PM [employer] EXAMINATION: XR CHEST 1VW PORTABLE HISTORY: S41.111A: [...] thorax isintact. Dictated by Alec Dumas MD (human resources vice president). I, Dr. HOPE KIM have personally reviewed and interpreted this examination/study. This report was electronically signed by HOPE KIM on 12:46 PM . Sergio Gretchen Mirian DO DIAGNOSTIC IMAGING O RDERABLES * SARS-COV-2 (COVID-19)+INFLU A+B PCR RAPID (09/10/2020 6:30 PM [employer]) COVID-19 PCR Not detected Not detected 09/10/19 9:39 PM [employer]EC [facility] Influenza A Rapid KIAH Not Detected Not Detected 09/10/2020 9:39 PM [employer]EC [facility] Influenza B KIAH Rapid Not Detected Not Detected 09/10/2020 9:39 PM [employer]EC [facility] Microbiology SPECIMEN FROM NASOPHARYNGEAL STRUCTURE / Unknown Collection / Unknown 09/10/2020 6:30 PM [employer] 09/10/2020 9:11 PM [employer] EXEC Narrative [facility] - 09/10/2020 9:39 PM [employer] Influenza assay performed by Nucleic Acid [employer]ification. [...] acid amplification assay performance was validated by [facility]. This test has been authorized by the [...] Vela DO LAB - MICROBIOLOGY O RDERABLES [address] [address], [facility] [phone] * 4 Units (09/10/2020 1:45 PM [employer] EX[employer]) Unit Description LR Whole BLood [facility] BLOOD BANK LAB Unit ABO O [facility] BLOOD [facility] LAB Unit Rh POS [facility] BLOOD BANK LAB Product [facility] [id number] [facility] B LOOD BANK LAB Unit Donor # [id number] [facility] BLOOD [facility]ANK LAB Unit Status released [facility] BLOO D BANK LAB Product Code [id number] [facility] BLO OD BANK LAB Blood Type Barcode 5100 [facility] BLOOD [facility]ANK LAB Expiration Date [id number] S BLOOD BANK LAB Unit Description LR Whole BLood [facility] BLOOD BANK LAB Unit ABO O [facility] BLOOD BANK LAB Unit Rh POS [facility] BLOOD BANK LAB Product Number [id number] [facility] B LOOD BANK LAB Unit Donor # [id number] [facility] BLOOD [facility]ANK LAB Unit Status released [facility] BLOO D BANK LAB Product Code [id number] [facility] BLO OD BANK LAB Blood Type Barcode 5100 [facility] BLOOD BANK LAB Expiration Date [id number] S BLOOD BANK LAB Unit Description LR Whole BLood [facility] BLOOD BANK LAB Unit ABO O [facility] BLOOD BANK LAB Unit Rh POS [facility] BLOOD BANK LAB Product Number [id number] [facility] B LOOD BANK LAB Unit Donor # [id number] [facility] BLOOD BANK LAB Unit Status released [facility] Product Code [id number] [facility] Blood Type Barcode [address] [facility] Expiration Date [id number] S BLOOD BANK LAB Unit Description LR Whole [facility] BLOOD BANK LAB Unit ABO O [facility] BLOOD B[facility] LAB Unit POS [facility] BLOOD [facility] LAB Product Number [id number] [facility] B LOOD BANK LAB Unit Donor # [id number] [facility] BLOOD [facility]ANK LAB Unit Status released [facility] BLOO D BANK LAB Product Code [id number] [facility] BLO OD BANK LAB Blood Type Barcode 5100 [facility] BLOOD [facility] LAB Expiration Date [id number] S BLOOD BANK LAB Unit Description LR Whole BLood [facility] BLOOD BANK LAB Unit ABO O [facility] BLOOD [facility] LAB Unit POS [facility] BLOOD [facility] LAB Product Number [id number] [facility] B LOOD BANK LAB Unit Donor # [id number] [facility] BLOOD BANK LAB Unit Status transfused [facility] BLO OD BANK LAB Product Code [id number] [facility] BLO OD BANK LAB Blood Type Barcode 5100 [facility] BLOOD BANK LAB Expiration Date [id number] S BLOOD BANK LAB Unit Description LR Whole BLood [facility] BLOOD BANK LAB Unit ABO O [facility] BLOOD BANK LAB Unit POS [facility] BLOOD BANK LAB Product Number [id number] [facility] B LOOD BANK LAB Unit Donor # [id number] [facility] BLOOD BANK LAB Unit Status released [facility] BLOO D BANK LAB Product Code [id number] [facility] BLO OD BANK LAB Blood Type Barcode 5100 [facility] Expiration Date [id number] S BLOOD BANK LAB Unit Description LR Whole BLood [facility] B[facility]OD [facility] Unit ABO O [facility] Unit Rh POS [facility] Product Number [id number] [facility] B LOOD BANK LAB Unit Donor # [id number] [facility] Unit Status released [facility] D [facility] Product Code [id number] [facility] OD [facility] Blood Type Barcode 5100 [facility] Expiration Date [id number] [facility] BLOOD [facility]ANK [facility] Unit Description LR Whole BLood [facility] Unit ABO O [facility] Unit POS [facility] Product Number [id number] [facility] B LOOD BANK LAB Unit Donor # [id number] [facility] Unit Status released [facility] Product Code [id number] [facility] OD [facility] Blood Type Barcode 5100 [facility] Expiration Date [id number] [facility] BLOOD [facility] LAB Blood Bank BLOOD SPECIMEN / Unknown 09/10/2020 11:30 AM B2B MANAGED SERVICE SALES EXEC Justin Tafoya MD LAB - BLOOD BANK OR DERABLES [facility] B[facility]OD [facility] [address] [place] [address], [facility] [phone] * PREPARE FFP UNIT(S), 6 Units (09/10/2020 1:07 PM B2B MANAGED SERVICE SALES EXEC) Unit Description Thawed Plasma 5D [facility] B[facility]OD [facility] Unit ABO AB [facility] Unit POS [facility] Product Number [id number] [facility] B LOOD BANK LAB Unit Donor # [id number] [facility] Unit Status released [facility] BL[facility] D [facility] Product Code [id number] [facility] OD BANK [facility] Blood Type Barcode 8400 [facility] Expiration Date [id number] [facility] BLOOD [facility] Unit Description Thawed Plasma 5D [facility] Unit ABO AB [facility] Unit POS [facility] Product Number [id number] [facility] B LOOD BANK LAB Unit Donor # [id number] [facility] Unit Status released [facility] Product Code [id number] [facility] OD BANK [facility] Blood Type Barcode 8400 [facility] Expiration Date [id number] [facility] BLOOD [facility] Unit Description Thawed Plasma 5D [facility] Unit ABO AB [facility] Unit POS [facility] Product Number [id number] [facility] B LOOD BANK LAB Unit Donor # [id number] [facility] Unit Status released [facility] BL[facility] D [facility] Product Code [id number] [facility] BLO OD BANK [facility] Blood Type Barcode 8400 [facility] Expiration Date [id number] S BLOOD BANK LAB Unit Description Thawed Plasma 5D [facility] Unit ABO AB [facility] Unit Rh POS [facility] Product Number [id number] [facility] B LOOD BANK LAB Unit Donor # [id number] [facility] Unit Status released [facility] BL[facility] D [facility]ANK [facility] Product Code [id number] [facility] B[facility] OD [facility]ANK [facility] Blood Type Barcode 8400 [facility] Expiration Date [id number] [facility] BLOOD [facility] LAB Blood Bank BLOOD SPECIMEN / Unknown 09/10/2020 11:30 AM B2B MANAGED SERVICE SALES EXEC Sergio Vela DO LAB - BLOOD BANK ORD ERABLES [facility] B[facility]OD [facility] [address] [place] [address], [place] [phone] * PREPARE PLATELET PHERESIS UNIT(S), 1 Units (09/10/2020 1:04 PM B2B MANAGED SERVICE SALES EXEC) Unit Description LR PLT Phere IRR [facility] B[facility]OD [facility] Unit ABO O [facility] B[facility] Unit Rh POS [facility] Product Number [id number] [facility] B LOOD BANK LAB Unit Donor # [id number] [facility] Unit Status released [facility] BL[facility] D [facility] Product Code [id number] [facility] BLO OD BANK LAB Blood Type Barcode 5100 [facility] Expiration Date [id number] [facility] BLOOD BANK LAB Blood Bank BLOOD SPECIMEN / Unknown 09/10/2020 11:30 AM B2B MANAGED SERVICE SALES EXEC Sergio Vela DO LAB - BLOOD BANK ORD ERABLES [facility] B[facility]OD [facility] [address] [place] [address], [place] [phone] * ETT LINE PERFORMABLE (09/10/2020 11:42 AM B2B MANAGED SERVICE SALES EXEC) Narrative Angela Duran MD - 09/10/2020 11:42 AM B2B MANAGED SERVICE SALES EXEC Angela Duran MD 09/10/2020 11:42 AM Endotracheal Tube Placement: Patient Location: OR. Intubation Event Date/Time: 09/10/2020 11:22 AM Procedure: intubation (02100). Procedure Section: Sedation: under general anesthesia. Indications [...] RIGHT 2VW OR MORE (09/10/2020 11:24 AM B2B MANAGED SERVICE SALES EXEC) Anatomical Region Laterality Modality Upper Extremity Radiographic Emilee ging 09/10/2020 12:1 3 PM B2B MANAGED SERVICE SALES EXEC Impressions 09/10/2020 3:29 PM B2B MANAGED SERVICE SALES EXEC FINDINGS/IMPRESSION: There is a proximal arm tourniquet. A soft tissue defect with subjacent soft tissue swelling and subcutaneous gas is seen in the mid-distal arm. The humerus appears intact. No large embedded radiopaque foreign body is identified. Medial and lateral distal humeral epicondylar enthesopathy. Report dictated by Ke Rodríguez MD (human resources vice president). I, Dr. EMIL ALLEN have personally reviewed and interpreted this examination/study. This report was electronically signed by EMIL ALLEN on 09/10/2020 3:29 PM . Narrative 09/10/2020 3:29 PM B2B MANAGED SERVICE SALES EXEC EXAMINATION: XR HUMERUS RIGHT 2VW OR MORE [...] enthesopathy. Report dictated by Ke Rodríguez MD (human resources vice president). I, Dr. EMIL ALLEN have personally reviewed and interpreted this examination/study. This report was electronically signed by EMIL ALLEN on 09/10/2020 3:29 PM . Sergio Vela DO DIAGNOSTIC IMAGING O RDERABLES * PTT [facility] (09/10/2020 11:23 AM B2B MANAGED SERVICE SALES EXEC) APTT 25.7 23.0 - 38.4 Seconds 09/10/2020 11:39 AM B2B MANAGED SERVICE SALES EXEC [facility] Comment:Suggested therapeuti c range for full dose I.V. unfractionated heparin therapy for venous thromboembolism is 71 to 109 seconds. Blood BLOOD SPECIMEN / Unknown Venipuncture / Unknown 09/10/2020 11:23 AM B2B MANAGED SERVICE SALES EXEC 09/10/2020 11:31 AM B2B MANAGED SERVICE SALES EXEC Sergio Vela DO LAB - COAGULATION OR DERABLES [facility] [address] [place] [address], [facility] [phone] * TYPE + SCREEN PANEL (09/10/2020 11:23 AM B2B MANAGED SERVICE SALES EXEC) Antibody Screen NEG 12:16 PM B2B MANAGED SERVICE SALES EXEC [facility] BLOOD [facility] ABO Rh O POS 09/10/2020 12:16 PM B2B MANAGED SERVICE SALES EXEC [facility] B[facility]OD [facility] Blood Bank BLOOD SPECIMEN / Unknown Venipuncture / Unknown 09/10/2020 11:23 AM B2B MANAGED SERVICE SALES EXEC 09/10/2020 11:30 AM B2B MANAGED SERVICE SALES EXEC Sergio Vela DO LAB - BLOOD BANK ORD SARI Performing Organization Address [facility]/ZIP Co de Phone Number [facility] BLOOD BANK LAB [address] [place] [address], [facility] [phone] * (ABNORMAL) ALCOHOL ETHYL BLOOD (09/10/2020 11:23 AM B2B MANAGED SERVICE SALES EXEC) Ethanol (mg/dL) 38(H) None Detected mg/dL 09/10/2020 12:07 PM B2B MANAGED SERVICE SALES EXEC [facility] Comment:Ethanol in the patie nt's blood will contribute to the osmolar gap. Ethanol's contribution to the osmolar gap can be estimated by dividing the concentration of ethanol in mg/dL by 4.6. Blood BLOOD SPECIMEN / Unknown Venipuncture / Unknown 09/10/2020 11:23 AM B2B MANAGED SERVICE SALES EXEC 09/10/2020 11:28 AM B2B MANAGED SERVICE SALES EXEC Sergio Wardper LAB - CHEMISTRY JANETTE SANDHU Performing Organization Address [facility]/ZIP Co de Phone Number [facility] [address] [place] [address], [facility] [phone] * CARDIAC EKG ORDER (02/09/2018 1:53 PM [...] with reconstitution. Dictated by Sondra Dobbins MD (human resources vice president). I, Dr. KIM HAMILTON M.D. have personally [...] with reconstitution. Dictated by Sondra Dobbins MD (human resources vice president). I, Dr. KIM HAMILTON M.D. have personally reviewed and interpreted this examination/study. This report was electronically signed by KIM HAMILTON M.D. on 02/06/2018 4:38 PM . Nava Morgan MD CT ORDERABLES * (ABNORMAL) CREATININE BLOOD - POCT (IP) [facility] (02/06/2018 7:43 AM CDT) Creatinine POCT 1.51(A) 0.3 - 1.3 mg/dL [facility] POCT TESTING eGFR POCT 60 60 ml/min [facility] POCT TESTING Blood BLOOD SPECIMEN / Unknown 02/06/2018 7:43 AM CDT Nava Morgan MD LAB - POINT OF CARE ORDERABLES [facility] POCT TESTING [address] [phone] Care Teams Winterizer Relationship Specialty Start Date End Date Unknown, Provider PCP - General 01/01/18
--- OUTSIDE RECORDS SUMMARY | 2024-09-07 21:01 | XMS_ITS | Encounter Summary ---
Author Organization [facility] Address [address] [place] [address] Phone Care Team Providers Care Narcotics And Vice Detective Name Role Phone Romaine Frank DO Primary Care Provider Vineet Conklin POLICYHOLDER INFORMATION CLERK Primary Care Provider [phone] Cecile Terrell POLICYHOLDER INFORMATION CLERK Primary Care Provider + [phone] Encounter Details Date Type Department Care Team (Late st Contact Info) Description 05/13/2014 Orders Only [facility] OPH CLINCONV Provider, MD Nereyda [address] [place] [address] Social History Tobacco Use Types Packs/Day Years Used Date Smoking Tobacco: Never Assessed Sex and Gender Information Value Date Recorded Sex Assigned at Not on file Legal Sex Male 9:22 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
--- OUTSIDE RECORDS SUMMARY | 2024-09-07 21:01 | XMS_ITS | Encounter Summary ---
Author Organization [facility] Address [address] [facility] [place] [address] Phone Care Team Providers Care Anode Worker Name Role Phone Cecile Terrell APRN, CNP Primary Care Provider Reason for Referral * PT/OT/ST (Routine) - Closed Specialty Diagnoses / Procedures Referred By Contdave t Referred To Contact Physical Therapy Diagnoses Cerebrovascular accident (CVA), unspecified mechanism (HCC) Cecile Terrell APRN, CNP [address] [place] [address] Phone: tel: fax: [facility] at [address] [address] Phone: tel: fax: Referral ID Status Reason Start Date Expiration Date Visits Re quested Visits Authorized [id number] Closed 02/11/2024 50 11 Scheduling Instructions Encounter Details Date Type Department Care Team (Latest Contact Info) Description 02/11/2024 Transcribe Orders [facility] [address] [place] [address] Cecile Terrell APRN, CNP [address] [place] [address] Cerebrovascular accident (CVA), unspecified mechanism [...] Primary documented in this encounter Care Teams Anode Worker Relationship Specialty Start Date End Date Cecile Terrell APRN, SPRINKLING SYSTEM INSTALLER [address] [place] [address] PCP - General Advanced Practice Nurse 04/22/22 documented as of this encounter
--- OUTSIDE RECORDS SUMMARY | 2024-09-07 21:01 | XMS_ITS | Clinical Summary ---
Author Organization [facility] Address [address] [place] [address] Phone Care Team Providers Care Manager Case Name Role Phone Xander, Cecile Godinez APRN, SHARI Primary Care Provider Allergies No known active allergies Medications albuterol (PROVENTIL HFA, VENTOLIN HFA) 108 (90 Base) MCG/ACT Aerosol Solution take 2 Puffs by inhalation every 6 hours as needed for Wheezing. 1 Inhaler 7 Active JANUVIA 100 MG Tablet TK 1 T PO QD 4 8 Active Umeclidinium [place] (INCRUSE [place]) take by inhalation. 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 [place] or callus 10/06/2017 Dermatophytosis of nail 10/06/2017 [...] Comments Blood Pressure 152/90 06/18/2019 12:50 PM ANNEALING OVEN OPERATOR Pulse 77 06/18/2019 12:50 PM ANNEALING OVEN OPERATOR Temperature 36.7 C (98.1 F) 06/18/2019 12:50 PM ANNEALING OVEN OPERATOR Respiratory Rate 17 06/18/2019 12:50 PM ANNEALING OVEN OPERATOR Oxygen Saturation 94% 06/18/2019 12:50 PM ANNEALING OVEN OPERATOR Inhaled Oxygen Concentration - - Weight 115.7 kg (255 lb) 06/18/2019 12:50 PM ANNEALING OVEN OPERATOR Height 185.4 cm (6' 1 ) 06/18/2019 12:50 PM ANNEALING OVEN OPERATOR Body Mass Index 33.64 06/18/2019 12:50 PM ANNEALING OVEN OPERATOR Plan of Treatment Health Maintenance Due Date [...] - 144 mmol/L 03/05/2019 2:07 PM CDT [facility] POTASSIUM 4.0 3.5 - 5.1 mmol/L 03/05/2019 2:07 PM CDT [facility] CHLORIDE 99(L) 100 - 110 mmol/L 03/05/2019 2:07 PM CDT [facility] CO2, VENOUS 28 22 - 32 mmol/L 03/05/2019 2:07 PM CDT [facility] ANION GAP 15.0 8.0 - 20.0 mmol/L 03/05/2019 2:07 PM CDT [facility] GLUCOSE 114(H) 70 - 99 mg/dL 03/05/2019 2:07 PM CDT [facility] BUN 9 8 - 23 mg/dL 03/05/2019 2:07 PM CDT [facility] CREATININE, BLOOD 1.10 0.80 - 1.30 mg/dL 03/05/2019 2:07 PM CDT [facility] BUN/CREATININE RATIO 8(L) 12 - 20 ratio 03/05/2019 2:07 PM [facility] TOTAL PROTEIN 7.6 6.0 - 8.3 g/dL 03/05/2019 2:07 PM T [facility] ALBUMIN 4.1 3.5 - 5.2 g/dL 03/05/2019 2:07 PM T [facility] Comment: The colormetric methods used for the determination of Albumin may lead to falsely elevated test results in patients suffering from renal failure or insufficiency due to interference with other proteins. A/G RATIO 1.2 1.0 - 2.0 03/05/2019 2:07 PM CDT [facility] CALCIUM 9.9 8.9 - 10.3 mg/dL 03/05/2019 2:07 PM [facility] T BILI 0.3 <=1.2 mg/dL 03/05/2019 2:07 PM [facility] SGOT (AST) 22 <=40 U/L 03/05/2019 2:07 PM [facility] SGPT (ALT) 18 <=41 U/L 03/05/2019 2:07 PM T [facility] ALKALINE PHOSPHATASE 76 40 - 130 U/L 03/05/2019 2:07 PM [facility] GFR, EST. NONAFRICAN >60 >=60 03/05/2019 2:07 PM CDT [facility] GFR, EST. >60 >=60 019 2:07 PM [facility] Comment: Creatinine Clearance is the preferred criteria for selecting drug dose adjustments in renally impaired patients. The GFR is provided as additional pertinent clinical information. GFR is reported in mL/min/1.73 sq m. Blood specimen (specimen) Venous Catheter (IV) / Unknown 03/05/2019 1:35 PM CDT 03/05/2019 1:43 PM CDT Sergio Mcgowan MD CHEMISTRY ORDERABLES Final Result [facility] [address] [place] [address] from Last 3 Months or Most Recently Relevant to Health Maintenance Insurance MEDICARE C [place] Care Teams Manager Case Relationship Specialty Start Date End Date Cecile Terrell APRN, SUPERVISOR MATRIX [address] [place] [address] PCP - General Advanced Practice Nurse 04/22/22
--- OUTSIDE RECORDS SUMMARY | 2024-09-07 21:01 | XMS_ITS | Encounter Summary ---
Author Organization [facility] Address [address] [facility] [place] [address] Phone Care Team Providers Care Python Programmer Name Role Phone Cecile Terrell APRN, CNP Primary Care Provider Reason for Referral * PT/OT/ST (Routine) - Closed Specialty Diagnoses / Procedures Referred By Contdave t Referred To Contact Occupational Therapy Diagnoses Wrist drop, right wrist Cecile Terrell APRN, CNP [address] [place] [address] Phone: tel: fax: [facility] at [address] [address] Phone: tel: fax: Referral ID Status Reason Start Date Expiration Date Visits Re quested Visits Authorized [id number] Closed 03/11/2024 50 3 Scheduling Instructions Encounter Details Date Type Department Care Team (Latest Contact Info) Description 03/11/2024 Transcribe Orders [facility] [address] [place] [address] Cecile Terrell APRN, CNP [address] [place] [address] Wrist drop, right wrist (Primary [...] Primary documented in this encounter Care Teams Python Programmer Relationship Specialty Start Date End Date Cecile Terrell APRN, FINANCIAL AID MANAGER [address] [place] [address] PCP - General Advanced Practice Nurse 04/22/22 documented as of this encounter
--- OUTSIDE RECORDS SUMMARY | 2024-09-07 21:01 | XMS_ITS | Encounter Summary ---
Author Organization [facility] Address [address] [place] [address] [place] [address] Care Team Providers Care Depositing Machine Operator Name Role Phone Unknown, Provider Primary Care Provider Unavaila ble Reason for Visit * Reason Comments Refill Request Encounter Details Date Type Department Care Team (Late st Contact Info) Description 10/14/2018 Refill [facility] [address] [facility] [address] [place] [address] Nava Morgan MD [address] [place] [address] Refill Request Social History Tobacco Use Types Packs/Day Years Used Date Smoking Tobacco: Every Day Cigarettes 0.5 35 Smokeless Tobacco: Never Alcohol Use Standard Drinks/Week Comments No 0 (1 standard drink = 0.6 oz pur e alcohol) Sex and Gender Information Value Date Recorded Sex Assigned at Not on file Gender Identity Male 09/11/2020 8:16 AM DRYING MACHINE OPERATOR Sexual Orientation Not on file documented as of this encounter Plan of Treatment Not on file documented as of this encounter Visit Diagnoses Not on filedocumented in this encounter Additional Health Concerns Infection Onset Date Last Indicated Resolved Time COVID-19 Under Investigation 09/10/2020 09/10/2020 09/10/2020 9:39 PM DRYING MACHINE OPERATOR documented as of this encounter Care Teams Depositing Machine Operator Relationship Specialty Start Date End Date Unknown, Provider PCP - General 01/01/18 documented as of this encounter
--- OUTSIDE RECORDS SUMMARY | 2024-09-07 21:01 | XMS_ITS | Encounter Summary ---
Author Organization [facility] Healthcare Address [address] [place] [address] Care Team Providers Care Canvass Manager Name Role Phone Vineet Conklin BARREL HANDLER Primary Care Provider [phone] Cecile Terrell BARREL HANDLER Primary Care Provider [phone] Encounter Details Date Type Department Care Team ([facility] Contact Info) Description 03/21/[address] [address] [place], Social History Tobacco Use Types Packs/Day Years Used Date Smoking Tobacco: Every Day Sex and Gender Information Value Date Recorded Sex Assigned at Not on file Legal Sex Male 9:22 AM PLASTERER HELPER Gender Identity Not on file Sexual Orientation Not on file documented as of this encounter Plan of Treatment Not on file documented as of this encounter Visit Diagnoses Not on filedocumented in this encounter Care Teams Canvass Manager Relationship Specialty Start Date End Date Vineet Conklin NP PCP - General Internal Medicine 12/09/19 03/12/21 Cecile Terrell NP [address] [address] PCP - General Family Medicine 03/13/21 documented as of this encounter
--- OUTSIDE RECORDS SUMMARY | 2024-09-07 21:01 | XMS_ITS | Encounter Summary ---
Author Organization [facility] Address [address] [place] [address] Phone Care Team Providers Care Landscape Crew Member Name Role Phone Xander, Cecile Godinez APRN, SHARI Primary Care Provider Reason for Visit * Reason Onset Date Comments Appointment 04/01/2024 Encounter Details Date Type Department Care Team (Late st Contact Info) Description 04/01/2024 [facility]phone [facility] [address], [address] [place] [phone] Carlos Patino PTA [place] Appointment Social History Tobacco Use Types Packs/Day [...] on filedocumented in this encounter Care Teams Landscape Crew Member Relationship Specialty Start Date End Date Cecile Terrell, VIDEO NETWORK ENGINEER, LADLE WATCHER [address] [place] [address] PCP - General Advanced Practice Nurse 04/22/22 documented as of this encounter
--- NOTE | 2024-09-07 21:08 | ECG_ITS ---
Test Date: 2024-09-07 21:32:42 Measurements Intervals [place] Rate: 81 P: -87 WA: 114 QRS: 43 QRSD: 94 T: 30 QT: 398 QTc: 465 Interpretive Statements ECTOPIC ATRIAL RHYTHM NONSPECIFIC T-WAVE ABNORMALITY- ANT/INF LEADS BASELINE ARTIFACT- I, AVR, AVL, AVF, V4-V5 ABNORMAL ECG ABNORMAL RHYTHM ECG Compared to ECG 09/07/2024 18:58:28 NO SIGNIFICANT CHANGE Electronically Signed On 09-08-2024 07:01:49 FACILITIES COORDINATOR by Willard Funk D.O.
[2024-09-07] MEDS: IPRATROPIUM 0.5 MG/ALBUTEROL SULFATE 2.5 MG AMPUL.NEB 3 ML INHALATION ×2 (21:17→23:12)
[2024-09-07] MEDS: methylPREDNISolone SOD SUCC 125 MG VIAL IV PUSH (21:21)
[2024-09-07] MEDS: MAGNESIUM SULF 2 GM/WATER 50ML 2 GM/50 ML BAG IVPB (21:22)
[2024-09-07] MEDS: AZITHROMYCIN 500 MG/NS 250 ML 500 MG/250 ML BAG 250 MG IVPB (21:27)
[2024-09-07] MEDS: ALBUTEROL SULFATE NEB 2.5 MG/3 ML INH 10 MG INHALATION (21:30)
[2024-09-07 21:33] LABS: Magnesium 1.7 mg/dL (1.6-2.3)
[2024-09-07 21:57] LABS: D Dimer 0.95 ug/mL (<0.48)
[2024-09-07 22:14] LABS: Troponin I 0.042 ng/mL (0.000-0.034)
[2024-09-07] MEDS: SODIUM CHLORIDE 0.9% IV 1,000 ML 999 ML IV CONT (23:14)
[2024-09-08] VITALS (26 sets, daily range): BP systolic 143–180; BP diastolic 70–86; PULSE 58–95; RESP 16–22; TEMP 36.3–36.7; O2SAT 95–100; BMI 30.9
--- NOTE | 2024-09-08 00:21 | ADMGEN ---
This patient, Philip Barron, was admitted to IMU Room 206-. Patient/family oriented to hospital policies and general routines including ID bracelet, bed and alarms, visiting hours, pain management, procedures, bathroom and other care routines, personal items, smoking policy, room service/diet, and visiting hours. Information on how to activate the Rapid Response Team has been discussed. Patient/Family are encouraged to report perceived risks to care and to ask questions if they do not understand what they are told or what they should do.
--- NOTE | 2024-09-08 00:41 | P.HP_ITS ---
H&P: HPI History of Present Illness Date/Time: 09/08/24 00:41 Chief Complaint: Shortness of breath Narrative: This is a pleasant 69-year-old male with a past medical history COPD, non-insulin diabetes mellitus, hypertension, alcohol use disorder, peripheral neuropathy. The patient presents from home to [place] ER via EMS for shortness of breath for 1 day. The patient often responds with sarcasm which did her so accurate information gathering and upon multiple attempts to retrieve accurate medical information it is not possible. Reportedly the patient has had cough rhinorrhea subjective fevers and shortness of breath over 1 or 2 days. He reports he is out of his nebulizer machine and does not take medications because he ran out. When asked about illicit drug use he reports that is not possible since he is 69 years old. He reports active tobacco abuse. When asked about alcohol use he reports sometimes and when asked about how many drinks per week or day he has he repeats the words sometimes. In the ER he had an elevated troponin 2.035 and then 0.042. Quad viral screen negative. Chest x-ray without acute abnormalities. Saturating well on room air, uncontrolled hypertension. In the ER the patient was given DuoNebs, magnesium, Solu-Medrol, azithromycin. Afterwards patient reported he was feeling better. Review of Systems Review of Systems: All systems reviewed & are unremarkable except as noted in HPI and below (HPI) PMFSH Past Medical History Medical History Alcoholism COPD (chronic obstructive pulmonary disease) Diabetes mellitus with peripheral autonomic neuropathy HTN (hypertension) Insomnia Subclinical hyperthyroidism Family History Family History Sibling Diabetes mellitus Mother Hypertension Social History Social History Smoking packs per day: 2 Smoking cigarettes per day: 40.0 Years smoked: 50 Smoking pack-years: 100.00 Smoking status: Current every day smoker Tobacco type: cigarettes Second hand tobacco smoke exposure: Yes Alcohol intake: current Drinks per week: 6 Substance use: never Substance use type: does not use Lack of Transportation: No Lack of Food: Often True Current Housing: I Have Housing Concerned About Future Housing: No Difficulty Paying Gas/Electric Bills: No Difficulty Paying for Meds: YES Currently Unemployed: YES Education: High School Diploma/GED Difficulty w/ Childcare or Family Care: No Living arrangements: alone Occupation/Education: unemployed Additional occupation/education comments: Disabled Gender identity (if verbalized by the patient): Male Spiritual care concerns: No Meds Home Medications and Allergies Home Medications ?Medication ?Instructions ?Recorded ?Confirmed ?Type albuterol sulfate 90 mcg/actuation See Rx Instructions .Route 05/03/20 09/07/24 History aerosol inhaler .COMPLEX PRN Shortness Of Breath amlodipine 5 mg tablet 5 mg PO DAILY 10/06/22 09/07/24 History budesonide-formoterol HFA 160 1 inh inhalation DAILY 10/06/22 09/07/24 History mcg-4.5 mcg/actuation aerosol inhaler (Symbicort) lisinopril 30 mg tablet 30 mg PO DAILY 10/06/22 09/07/24 History atorvastatin 40 mg tablet 80 mg (2 x 40 mg) PO DAILY 1 month 10/08/22 09/07/24 Rx #60 tabs empagliflozin 10 mg tablet 10 mg PO DAILY 1 month #30 tabs 10/08/22 09/07/24 Rx (Jardiance) gabapentin 300 mg capsule See Rx Instructions .Route 05/14/23 09/07/24 Rx .COMPLEX #60 caps Allergies Allergy/AdvReac Type Severity Reaction Status Date / Time No Known Allergies Allergy Verified 09/07/24 21:05 Vital Signs Vital Signs - 24 hr 09/07/24 15:12 09/07/24 20:21 09/07/24 21:02 Temperature 97.9 F 98.0 F Pulse Rate 96 84 85 Respiratory Rate 16 22 H Blood Pressure 145/99 H 173/94 H Pulse Oximetry 100 94 Oxygen Delivery Room Air 09/07/24 21:03 09/07/24 21:03 09/07/24 21:04 Temperature Pulse Rate 86 Respiratory Rate 31 H Blood Pressure 192/155 H Pulse Oximetry 100 100 100 Oxygen Delivery Room Air Room Air 09/07/24 21:19 09/07/24 21:25 09/07/24 22:32 Temperature Pulse Rate 84 84 Respiratory Rate 26 H 26 H Blood Pressure Pulse Oximetry 100 Oxygen Delivery Room Air 09/07/24 22:33 09/07/24 23:14 09/07/24 23:24 Temperature 97.8 F Pulse Rate 82 82 78 Respiratory Rate 23 H 25 H 27 H Blood Pressure 162/80 H Pulse Oximetry 97 Oxygen Delivery 09/08/24 00:15 Temperature 97.4 F L Pulse Rate 80 Respiratory Rate 16 Blood Pressure 174/77 H Pulse Oximetry 98 Oxygen Delivery Exam Const: General: comfortable and no acute distress Other: A&O x3 Eyes: Pupils: Equal, round and reactive pupils present Neck: Neck: supple Resp: Effort & Inspection: normal respiratory effort Other: Expiratory wheeze Cardio: Rate: regular rate Rhythm: regular rhythm Heart sounds: no gallops, no murmurs and no rubs GI: GI Palp: Yes Soft to palpation and No Tenderness to palpation present (GI) Extrem: General: no edema H&P: Results Labs Labs: Short CBC 09/07/24 Range/Units 18:52 WBC 7.4 (4.5-10.0) K/mm3 Hgb 13.9 L (14.0-18.0) g/dL Hct 42.3 (42.0-52.0) % Plt Count 218 (150-375) k/mm3 BMP 09/07/24 18:52 Sodium 141 Potassium 3.9 Chloride 104 Carbon Dioxide 29 BUN 12 D Creatinine 0.99 Glucose 92 Calcium 9.5 Cardiac Enzymes 09/07/24 09/07/24 Range/Units 18:52 21:17 Troponin I 0.035 H* 0.042 H* (0.000-0.034) ng/mL Liver Function 09/07/24 Range/Units 18:52 Total Bilirubin 0.5 (0.2-1.3) mg/dL AST 24 (17-59) U/L ALT 15 (6-50) U/L Alkaline Phosphatase 82 (38-126) U/L Albumin 4.2 (3.5-5.1) g/dL Assessment and Plan Assessment and plan (1) HTN (hypertension): Code(s): I10 - Essential (primary) hypertension Status: Acute (2) Acute exacerbation of chronic obstructive pulmonary disease (COPD): Code(s): J44.1 - Chronic obstructive pulmonary disease with (acute) exacerbation Status: Acute (3) Tobacco dependence: Code(s): F17.200 - Nicotine dependence, unspecified, uncomplicated Status: Acute Plan This is a pleasant 69-year-old male with a past medical history COPD, non-insulin diabetes mellitus, hypertension, alcohol use disorder, peripheral neuropathy. The patient presents from home to [place] ER via EMS for shortness of breath for 1 day. The patient often responds with sarcasm which did her so accurate information gathering and upon multiple attempts to retrieve accurate medical information it is not possible. Reportedly the patient has had cough rhinorrhea subjective fevers and shortness of breath over 1 or 2 days. He reports he is out of his nebulizer machine and does not take medications because he ran out. When asked about illicit drug use he reports that is not possible since he is 69 years old. He reports active tobacco abuse. When asked about alcohol use he reports sometimes and when asked about how many drinks per week or day he has he repeats the words sometimes. In the ER he had an elevated troponin 2.035 and then 0.042. Quad viral screen negative. Chest x-ray without acute abnormalities. Saturating well on room air, uncontrolled hypertension. In the ER the patient was given DuoNebs, magnesium, Solu-Medrol, azithromycin. Afterwards patient reported he was feeling better. ----- Acute COPD exacerbation. He has a new cough, azithromycin started. Received Solu-Medrol, continue with prednisone. DuoNebs q.6 hours. Continue to trend out troponins. No chest pain, likely demand ischemia. EKG without acute ischemia. He received aspirin. Continue HEADING SAW OPERATOR atorvastatin Uncontrolled hypertension. Continue his HEADING SAW OPERATOR amlodipine 5 mg p.o. q.day and lisinopril 30 mg p.o. q.day. continue management after repeat blood pressure. ----- Cardiac diabetic diet Patient wishes to be full code. Reason lock IV. Hospitalist [facility] Advance Care Plan I have confirmed that the patient's Advanced Care Plan is present, code status is documented, or surrogate decision maker is listed in patient medical record.: Yes Medication Reconciliation I have utilized all available resources to obtain, update and review the patients current medications (includes all prescriptions, OTC, herbals, cannabis, and nutritional supplements).: Yes
[2024-09-08 00:50] LABS: Glucose Point of Care 174 mg/dl (65-105)
[2024-09-08 01:38] LABS: Troponin I 0.033 ng/mL (0.000-0.034)
[2024-09-08] MEDS: amLODIPine BESYLATE 5 MG TABLET PO (01:44)
[2024-09-08] MEDS: lisinopriL 10 MG TABLET 30 MG PO (01:45)
[2024-09-08] MEDS: IPRATROPIUM 0.5 MG/ALBUTEROL SULFATE 2.5 MG AMPUL.NEB 3 ML INHALATION ×4 (02:21→21:30)
[2024-09-08 05:52] LABS: Eosinophils Percent Auto 0.2 % (0-4.4); Hematocrit 42.1 % (42.0-52.0); Hemoglobin 13.6 g/dL (14.0-18.0); Immature Granulocyte Absolute 0.04 K/mm3 (0.00-0.031); Immature Granulocyte Percent A 0.6 % (0-0.5); Lymphocytes Absolute Auto 0.29 K/mm3 (0.9-3.2); Lymphocytes Percent Auto 4.5 % (18.3-44.2); Mean Corpuscular HGB Conc 32.3 g/dl (32-36); Mean Corpuscular Hemoglobin 30.2 pg (26-34); Mean Corpuscular Volume 93.3 fl (80-100); Mean Platelet Volume 10.7 fl (7.4-10.4); Monocytes Absolute Auto 0.1 K/mm3 (0.1-0.6); Monocytes Percent Auto 1.2 % (2.6-8.5); Neutrophils Percent Auto 93.5 % (45.5-73.1); Platelet Count Result 205 k/mm3 (150-375); Red Blood Count 4.51 M/mm3 (4.6-6.20); Red Cell Distribution Width 14.1 % (11.5-14.5); White Blood Count 6.4 K/mm3 (4.5-10.0)
[2024-09-08 06:08] LABS: Anion Gap 9 mmol/L (4-12); Blood Urea Nitrogen 13 mg/dL (9-20); Carbon Dioxide 26 mmol/L (22-30); Chloride 104 mmol/L (98-107); Estimated CRCL calculation 89 ml/min; Estimated Glomerular Filt Rate > 60; Glucose 231 mg/dL (65-110); Magnesium 2.1 mg/dL (1.6-2.3); Potassium 4.3 mmol/L (3.4-5.0); Sodium 139 mmol/L (137-145)
[2024-09-08 06:19] LABS: Procalcitonin 0.1 ng/mL
[2024-09-08] MEDS: LABETALOL HCL INJ 100 MG/20 ML VIAL 10 MG IV PUSH (06:19)
[2024-09-08 07:58] LABS: Glucose Point of Care 212 mg/dl (65-105)
[2024-09-08] MEDS: INSULIN GLARGINE (*BKC) 100 UNITS/ML 10 UNITS SUB-Q (09:26)
[2024-09-08] MEDS: INSULIN ASPART (*BKC) 100 UNITS/ML SUB-Q ×2 (09:27→20:10)
[2024-09-08] MEDS: FLUTICASONE/SALMETEROL 115-21 MCG INHALER 1 PUFF 2 PUFF INHALATION ×2 (09:28→21:30)
[2024-09-08] MEDS: ATORVASTATIN 40 MG TABLET 80 MG PO (09:29)
[2024-09-08] MEDS: ENOXAPARIN 40 MG/0.4 ML SYRINGE SUB-Q (09:29)
[2024-09-08] MEDS: GABAPENTIN 300 MG CAPSULE BY MOUTH ×2 (09:29→16:41)
[2024-09-08] MEDS: predniSONE 20 MG TABLET 40 MG PO (09:30)
--- NOTE | 2024-09-08 10:08 | PM.IMPN ---
Progress Note: A&P Assessment and Plan (1) HTN (hypertension): Code(s): I10 - Essential (primary) hypertension Status: Acute (2) Acute exacerbation of chronic obstructive pulmonary disease (COPD): Code(s): J44.1 - Chronic obstructive pulmonary disease with (acute) exacerbation Status: Acute (3) Tobacco dependence: Code(s): F17.200 - Nicotine dependence, unspecified, uncomplicated Status: Acute Plan This is a pleasant 69-year-old male with a past medical history COPD, non-insulin diabetes mellitus, hypertension, alcohol use disorder, peripheral neuropathy. The patient presents from home to [place] ER via EMS for shortness of breath for 1 day. patient has had cough rhinorrhea subjective fevers and shortness of breath over 1 or 2 days. He reports he is out of his nebulizer machine and does not take medications because he ran out. Elevated troponin In the ER he had an elevated troponin 2.035 and then 0.042. Patient denies chest pain EKG shows ectopic atrial rhythm no specific ST or T-wave changes Continue Lipitor Possible demand ischemia due to uncontrolled infection and COPD exacerbation Start aspirin 325 mg once, 80 mg daily p.o. Follow-up echocardiogram Telemetry monitoring Consult cardiology for evaluation treatment Acute COPD exacerbation. Patient has a productive cough, tobacco dependence Patient has acute better bronchitis Azithromycin started. X-ray shows no acute pulmonary issue Received Solu-Medrol, continue with prednisone. DuoNebs q.6 hours. Uncontrolled hypertension. 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 q.day and lisinopril 30 mg p.o. q.day. continue management after repeat blood pressure. Uncontrolled type 2 diabetes Likely secondary to steroid Start glargine 10 unit daily Start insulin sliding scale a.c. and q.h.s. ----- Cardiac diabetic diet Patient wishes to be full code. Reason lock IV. Subjective Date/time seen: 09/08/24 10:08 Interval history: Saw exam patient today, patient still has dyspnea, improving, patient has palpitation, denies lightheadedness, patient still has some chest pain, worse with cough. Patient is afebrile, blood pressure stable, Exam Narrative: GENERAL: Pleasant, in no acute distress. Well-nourished. - EYES: EOMI. Anicteric. - HENT: Moist mucous membranes. - LUNGS: Coarse breath sound bilaterally no wheezing, rhonchi, or rales. - CARDIOVASCULAR: Regular rate and rhythm. No murmur. No JVD. - ABDOMEN: Soft, non-tender and non-distended. No palpable masses. - EXTREMITIES: No edema. Peripheral pulses 2+. Non-tender. - NEUROLOGIC: No focal neurological deficits. CN II-XII grossly intact. - PSYCHIATRIC: Awake, Alert and oriented x 3. Appropriate mood and affect. - SKIN: No rashes or lesions. Warm. - LYMPH: No cervical lymphadenopathy. Objective Data Vital Signs Vital Signs: Vital Signs - 24 hr 09/07/24 15:12 09/07/24 20:21 09/07/24 21:02 Temperature 97.9 F 98.0 F Pulse Rate 96 84 85 Respiratory Rate 16 22 H Blood Pressure 145/99 H 173/94 H Pulse Oximetry 100 94 Oxygen Delivery Room Air 09/07/24 21:03 09/07/24 21:03 09/07/24 21:04 Temperature Pulse Rate 86 Respiratory Rate 31 H Blood Pressure 192/155 H Pulse Oximetry 100 100 100 Oxygen Delivery Room Air Room Air 09/07/24 21:19 09/07/24 21:25 09/07/24 22:32 Temperature Pulse Rate 84 84 Respiratory Rate 26 H 26 H Blood Pressure Pulse Oximetry 100 Oxygen Delivery Room Air 09/07/24 22:33 09/07/24 23:14 09/07/24 23:24 Temperature 97.8 F Pulse Rate 82 82 78 Respiratory Rate 23 H 25 H 27 H Blood Pressure 162/80 H Pulse Oximetry 97 Oxygen Delivery 09/08/24 00:15 09/08/24 00:29 09/08/24 02:00 Temperature 97.4 F L Pulse Rate 80 80 85 Respiratory Rate 16 Blood Pressure 174/77 H Pulse Oximetry 98 Oxygen Delivery 09/08/24 02:21 09/08/24 02:27 09/08/24 04:00 Temperature Pulse Rate 82 83 75 Respiratory Rate 18 18 Blood Pressure Pulse Oximetry Oxygen Delivery 09/08/24 05:33 09/08/24 06:00 09/08/24 06:19 Temperature 97.6 F Pulse Rate 77 69 68 Respiratory Rate 18 Blood Pressure 180/86 H Pulse Oximetry 95 Oxygen Delivery 09/08/24 07:40 09/08/24 09:29 09/08/24 09:29 Temperature 97.6 F Pulse Rate 95 60 Respiratory Rate 18 18 Blood Pressure 151/71 H Pulse Oximetry 100 98 Oxygen Delivery Room Air 09/08/24 09:36 Temperature Pulse Rate 58 L Respiratory Rate 18 Blood Pressure Pulse Oximetry Oxygen Delivery Intake/Output Intake/Output: Intake & Output 09/05/24 09/06/24 09/07/24 09/08/24 23:59 23:59 23:59 23:59 Intake Total 300 1480 Balance 300 1480 Meds/Results Medications: Active Medications Generic Name Dose Route Start Last Admin Trade Name Freq PRN Reason Stop Dose Admin Acetaminophen 650 mg 09/07/24 23:12 Acetaminophen 325 Mg Tablet PO Q4H PRN Mild Pain (1-3) or Fever Albuterol/Ipratropium 3 ml 09/08/24 02:00 09/08/24 09:28 Ipratropium 0.5 Mg/Albuterol Sulfate 2.5 Mg Ampul.Neb 3 Ml INHALATION 3 ml Q6HRT KELVIN Administration Amlodipine Besylate 5 mg 09/08/24 09:00 09/08/24 01:30 Amlodipine Besylate 5 Mg Tablet PO Not Given DAILY KELVIN Atorvastatin Calcium 80 mg 09/08/24 09:00 09/08/24 09:29 Atorvastatin 40 Mg Tablet PO 80 mg DAILY KELVIN Administration Dextrose 12.5 gm 09/07/24 23:22 Dextrose 50% 25 Gm/50 Ml Syringe IV PUSH PRN PRN Hypoglycemia Protocol Enoxaparin Sodium 40 mg 09/08/24 09:00 09/08/24 09:29 Enoxaparin 40 Mg/0.4 Ml Syringe SUB-Q 40 mg DAILY KELVIN Administration Gabapentin 300 mg 09/08/24 09:00 09/08/24 09:29 Gabapentin 300 Mg Capsule BY MOUTH 300 mg BID KELVIN Administration Glucose 15 gm 09/07/24 23:22 Glucose Oral Gel 15 Gm Of Glucse In 37.5 Gm Tube PO PRN PRN Hypoglycemia Protocol Dextrose 1,000 mls @ 100 mls/hr 09/07/24 23:22 Dextrose 5% 1,000 Ml IVPB PRN PRN Hypoglycemia Protocol Azithromycin 250 mg/ Sodium 250 mls @ 250 mls/hr 09/08/24 22:00 Chloride IVPB Q24H [facility] Insulin Aspart 3 - 6 units 09/08/24 12:00 09/08/24 09:27 Insulin Aspart (*Bkc) 100 Units/Ml SUB-Q 3 units TIDWM [facility] Administration Protocol Insulin Aspart 1 - 3 units 09/08/24 21:00 Insulin Aspart (*Bkc) 100 Units/Ml SUB-Q HS [facility] Protocol Insulin Glargine 10 units 09/08/24 09:00 09/08/24 09:26 Insulin Glargine (*Bkc) 100 Units/Ml SUB-Q 10 units DAILY KELVIN Administration Lisinopril 30 mg 09/08/24 09:00 09/08/24 01:31 Lisinopril 10 Mg Tablet PO Not Given DAILY KELVIN Prednisone 40 mg 09/08/24 08:00 09/08/24 09:30 Prednisone 20 Mg Tablet PO 40 mg DAILY@0800 [facility] Administration Fluticasone/Salmeterol 2 puff 09/08/24 08:00 09/08/24 09:28 Fluticasone/Salmeterol 115-21 Mcg Inhaler 1 Puff INHALATION 2 puff Q12HRT [facility] Administration Radiology Results: ITS Impressions Chest X-Ray 09/07/24 18:40 IMPRESSION: No focal infiltrate or effusion. Labs Labs: Laboratory Results - last 24 hr 09/07/24 09/07/24 09/07/24 18:52 21:17 21:17 WBC 7.4 RBC 4.58 L Hgb 13.9 L Hct 42.3 MCV 92.4 MCH 30.3 MCHC 32.9 RDW 14.2 Plt Count 218 MPV 10.0 Immature Gran % (Auto) 0.5 Neut % (Auto) 65.4 Lymph % (Auto) 19.7 [place] % (Auto) 7.6 Eos % (Auto) 6.4 H Baso % (Auto) 0.4 Lymph # (Auto) 1.45 [place] # (Auto) 0.6 Eos # (Auto) 0.5 H Baso # (Auto) 0.0 Abs Immat Gran (auto) 0.04 H Absolute Neuts (auto) 4.8 Absolute Nucleated RBC 0.000 Nucleated RBC % 0.0 PT 15.0 H INR 1.2 APTT 28.3 D-Dimer 0.95 H Sodium 141 Potassium 3.9 Chloride 104 Carbon Dioxide 29 Anion Gap 8 BUN 12 D Creatinine 0.99 Estim Creat Clear Calc Not Reportable Estimated GFR > 60 Glucose 92 POC Capillary Glucose Calcium 9.5 Magnesium 1.7 Cancelled Total Bilirubin 0.5 AST 24 ALT 15 Alkaline Phosphatase 82 Troponin I 0.035 H* 0.042 H* NT-Pro-B Natriuret Pep 810 H Total Protein 7.0 Albumin 4.2 Procalcitonin Influenza A (RT-PCR) Negative Influenza B (RT-PCR) Negative RSV (RT-PCR) Negative SARS-CoV-2 RNA (RT-PCR) Negative 09/08/24 09/08/24 09/08/24 00:47 01:04 05:24 WBC 6.4 RBC 4.51 L Hgb 13.6 L Hct 42.1 MCV 93.3 MCH 30.2 MCHC 32.3 RDW 14.1 Plt Count 205 MPV 10.7 H Immature Gran % (Auto) 0.6 H Neut % (Auto) 93.5 H Lymph % (Auto) 4.5 L [place] % (Auto) 1.2 L Eos % (Auto) 0.2 Baso % (Auto) 0.0 L Lymph # (Auto) 0.29 L [place] # (Auto) 0.1 Eos # (Auto) 0.0 Baso # (Auto) 0.0 Abs Immat Gran (auto) 0.04 H Absolute Neuts (auto) 6.0 Absolute Nucleated RBC 0.000 Nucleated RBC % 0.0 PT INR APTT D-Dimer Sodium 139 Potassium 4.3 Chloride 104 Carbon Dioxide 26 Anion Gap 9 BUN 13 Creatinine 0.90 Estim Creat Clear Calc 89 Estimated GFR > 60 Glucose 231 H POC Capillary Glucose 174 H Calcium 9.0 Magnesium 2.1 Total Bilirubin AST ALT Alkaline Phosphatase Troponin I 0.033 D NT-Pro-B Natriuret Pep Total Protein Albumin Procalcitonin 0.1 Influenza A (RT-PCR) Influenza B (RT-PCR) RSV (RT-PCR) SARS-CoV-2 RNA (RT-PCR) 09/08/24 07:52 WBC RBC Hgb Hct MCV MCH MCHC RDW Plt Count MPV Immature Gran % (Auto) Neut % (Auto) Lymph % (Auto) [place] % (Auto) Eos % (Auto) Baso % (Auto) Lymph # (Auto) [place] # (Auto) Eos # (Auto) Baso # (Auto) Abs Immat Gran (auto) Absolute Neuts (auto) Absolute Nucleated RBC Nucleated RBC % PT INR APTT D-Dimer Sodium Potassium Chloride Carbon Dioxide Anion Gap BUN Creatinine Estim Creat Clear Calc Estimated GFR Glucose POC Capillary Glucose 212 H Calcium Magnesium Total Bilirubin AST ALT Alkaline Phosphatase Troponin I NT-Pro-B Natriuret Pep Total Protein Albumin Procalcitonin Influenza A (RT-PCR) Influenza B (RT-PCR) RSV (RT-PCR) SARS-CoV-2 RNA (RT-PCR)
[2024-09-08 11:31] LABS: Glucose Point of Care 182 mg/dl (65-105)
--- NOTE | 2024-09-08 12:55 | P.CONCA_ITS ---
Assessment and Plan Assessment and plan (1) Elevated troponin: Code(s): R79.89 - Other specified abnormal findings of blood chemistry Status: Acute Plan 1. Elevated troponin 2. Acute COPD exacerbation 3. Non-insulin dependent diabetes 4. Hypertension 5. Alcohol use 6. Peripheral neuropathy PLAN: -Troponin elevation is minimal and flat. This is not an acute coronary syndrome, likely 2/2 COPD exacerbation. Echocardiogram ordered by primary team. If echo without significant abnormality, then no additional cardiac workup recommended. History of Present Illness History of Present Illness Consult date/time: 09/08/24 12:55 Requesting physician: Dawna Hobbs MD Consult reason: Other (Elevated troponin) Reason For Visit: COPD exacerbation; NSTEMI Narrative: We are consulted for elevated troponin. This is a 69 year old male with COPD, non-insulin dependent diabetes, hypertension, alcohol use, peripheral neuropathy who presented with shortness of breath. Admitted for COPD exacerbation. Workup showed troponin elevation of 0.035, 0.042, 0.033. He denies chest pain. EKGs show ectopic atrial rhythm with nonspecific STTW abnormality. No prior cardiac history. He is feeling better with treatment of his COPD. Review of Systems 2 Review of Systems: All systems reviewed & are unremarkable except as noted in HPI and below (HPI) [facility] Past Medical History Medical History Subclinical hyperthyroidism Alcoholism Diabetes mellitus with peripheral autonomic neuropathy Insomnia COPD (chronic obstructive pulmonary disease) HTN (hypertension) Family History Family History Sibling Diabetes mellitus Mother Hypertension Father Liver failure Social History Social History Smoking packs per day: 1 Smoking cigarettes per day: 20.0 Years smoked: 50 Smoking pack-years: 50.00 Smoking status: Current every day smoker Tobacco type: cigarettes Second hand tobacco smoke exposure: Yes Alcohol intake: former Drinks per week: 6 Substance use: never Substance use type: does not use Do You Feel Safe in your Home?: Yes Lack of Transportation: No Lack of Food: Never True Current Housing: I Have Housing Concerned About Future Housing: No Difficulty Paying Gas/Electric Bills: No Difficulty Paying for Meds: No Currently Unemployed: No Education: Grade School Difficulty w/ Childcare or Family Care: No Living arrangements: alone Occupation/Education: unemployed Additional occupation/education comments: Disabled Gender identity (if verbalized by the patient): Male Spiritual care concerns: No Meds Home Medications and Allergies Home Medications ?Medication ?Instructions ?Recorded ?Confirmed ?Type albuterol sulfate 90 mcg/actuation See Rx Instructions .Route 05/03/20 09/07/24 History aerosol inhaler .COMPLEX PRN Shortness Of Breath amlodipine 5 mg tablet 5 mg PO DAILY 10/06/22 09/07/24 History budesonide-formoterol HFA 160 1 inh inhalation DAILY 10/06/22 09/07/24 History mcg-4.5 mcg/actuation aerosol inhaler (Symbicort) lisinopril 30 mg tablet 30 mg PO DAILY 10/06/22 09/07/24 History atorvastatin 40 mg tablet 80 mg (2 x 40 mg) PO DAILY 1 month 10/08/22 09/07/24 Rx #60 tabs empagliflozin 10 mg tablet 10 mg PO DAILY 1 month #30 tabs 10/08/22 09/07/24 Rx (Jardiance) gabapentin 300 mg capsule See Rx Instructions .Route 05/14/23 09/07/24 Rx .COMPLEX #60 caps Allergies Allergy/AdvReac Type Severity Reaction Status Date / Time No Known Allergies Allergy Verified 09/07/24 21:05 Vital Signs Vital Signs - 24 hr 09/07/24 15:12 09/07/24 20:21 09/07/24 21:02 Temperature 36.6 C 36.7 C Pulse Rate 96 84 85 Respiratory Rate 16 22 H Blood Pressure 145/99 H 173/94 H Pulse Oximetry 100 94 Oxygen Delivery Room Air 09/07/24 21:03 09/07/24 21:03 09/07/24 21:04 Temperature Pulse Rate 86 Respiratory Rate 31 H Blood Pressure 192/155 H Pulse Oximetry 100 100 100 Oxygen Delivery Room Air Room Air 09/07/24 21:19 09/07/24 21:25 09/07/24 22:32 Temperature Pulse Rate 84 84 Respiratory Rate 26 H 26 H Blood Pressure Pulse Oximetry 100 Oxygen Delivery Room Air 09/07/24 22:33 09/07/24 23:14 09/07/24 23:24 Temperature 36.6 C Pulse Rate 82 82 78 Respiratory Rate 23 H 25 H 27 H Blood Pressure 162/80 H Pulse Oximetry 97 Oxygen Delivery 09/08/24 00:15 09/08/24 00:29 09/08/24 02:00 Temperature 36.3 C L Pulse Rate 80 80 85 Respiratory Rate 16 Blood Pressure 174/77 H Pulse Oximetry 98 Oxygen Delivery 09/08/24 02:21 09/08/24 02:27 09/08/24 04:00 Temperature Pulse Rate 82 83 75 Respiratory Rate 18 18 Blood Pressure Pulse Oximetry Oxygen Delivery 09/08/24 05:33 09/08/24 06:00 09/08/24 06:19 Temperature 36.4 C Pulse Rate 77 69 68 Respiratory Rate 18 Blood Pressure 180/86 H Pulse Oximetry 95 Oxygen Delivery 09/08/24 07:40 09/08/24 08:00 09/08/24 08:00 Temperature 36.4 C Pulse Rate 95 61 Respiratory Rate 18 Blood Pressure 151/71 H Pulse Oximetry 100 98 Oxygen Delivery Room Air 09/08/24 09:29 09/08/24 09:29 09/08/24 09:36 Temperature Pulse Rate 60 58 L Respiratory Rate 18 18 Blood Pressure Pulse Oximetry 98 Oxygen Delivery Room Air 09/08/24 10:00 09/08/24 11:39 Temperature 36.6 C Pulse Rate 71 71 Respiratory Rate 22 H Blood Pressure 143/74 H Pulse Oximetry 100 Oxygen Delivery Exam 2 Const: General: no acute distress HENMT: Mouth: Yes moist mucous membranes Eyes: General: appearance normal, both eyes and all related structures S clera: sclerae normal Resp: Effort & Inspection: normal respiratory effort Cardio: Rate: regular rate Rhythm: regular rhythm Heart sounds: no murmurs Skin: General skin exam: normal color Neuro: Speech: normal speech Psych: Mental Status: mental status grossly normal Affect: normal affect Results Labs and Meds 09/08/24 05:24 09/08/24 05:24 Lab results: Cardiac Enzymes 09/07/24 09/07/24 09/08/24 Range/Units 18:52 21:17 01:04 AST 24 (17-59) U/L Troponin I 0.035 H* 0.042 H* 0.033 D (0.000-0.034) ng/mL Coagulation 09/07/24 Range/Units 18:52 PT 15.0 H (11.1-14.7) Seconds APTT 28.3 (22.3-36.8) Seconds CBC 09/07/24 09/08/24 Range/Units 18:52 05:24 WBC 7.4 6.4 (4.5-10.0) K/mm3 RBC 4.58 L 4.51 L (4.6-6.20) M/mm3 Hgb 13.9 L 13.6 L (14.0-18.0) g/dL Hct 42.3 42.1 (42.0-52.0) % Plt Count 218 205 (150-375) k/mm3 Lymph # (Auto) 1.45 0.29 L (0.9-3.2) K/mm3 [place] # (Auto) 0.6 0.1 (0.1-0.6) K/mm3 Eos # (Auto) 0.5 H 0.0 (0-0.3) K/mm3 Baso # (Auto) 0.0 0.0 (0.0-0.1) K/mm3 Comprehensive Metabolic Panel 09/07/24 09/08/24 Range/Units 18:52 05:24 Sodium 141 139 (137-145) mmol/L Potassium 3.9 4.3 (3.4-5.0) mmol/L Chloride 104 104 (98-107) mmol/L Carbon Dioxide 29 26 (22-30) mmol/L BUN 12 D 13 (9-20) mg/dL Creatinine 0.99 0.90 (0.7-1.3) mg/dL Glucose 92 231 H (65-110) mg/dL Calcium 9.5 9.0 (8.4-10.2) mg/dL AST 24 (17-59) U/L ALT 15 (6-50) U/L Alkaline Phosphatase 82 (38-126) U/L Total Protein 7.0 (6.3-8.2) g/dL Albumin 4.2 (3.5-5.1) g/dL Intake and Output 09/07/24 09/08/24 09/08/24 23:59 07:59 15:59 Intake Total 300 1240 480 Output Total 300 Balance 300 1240 180 Intake: IV 300 1000 Sodium Chloride 0.9% IV 1,000 1000 ml @ 999 mls/hr IV CONT .Q1H1M STA Rx#:[id number] Azithromycin 500 mg/Ns 250 ml 250 500 mg In 250 ml @ 250 mls/hr IVPB ONCE ONE Rx#:[id number] Magnesium Sulf 2 gm/Water 50Ml 50 2 gm In 50 ml @ 25 mls/hr IVPB ONCE ONE Rx#:[id number] Oral 240 480 Output: Urine 300 Other: # Unmeasured Voids 1 Patient Weight 09/08/24 23:59 Weight 106.3 kg
[2024-09-08 16:19] LABS: Glucose Point of Care 176 mg/dl (65-105)
[2024-09-08 19:54] LABS: Glucose Point of Care 209 mg/dl (65-105)
[2024-09-08] MEDS: AZITHROMYCIN IV 250 MG in SODIUM CHLORIDE 0.9% IV 250 ML IVPB (22:19)
[2024-09-09] VITALS (28 sets, daily range): BP systolic 111–162; BP diastolic 65–92; PULSE 61–82; RESP 16–24; TEMP 36.3–36.7; O2SAT 95–100
[2024-09-09] MEDS: IPRATROPIUM 0.5 MG/ALBUTEROL SULFATE 2.5 MG AMPUL.NEB 3 ML INHALATION ×5 (02:25→19:35)
[2024-09-09 08:14] LABS: Glucose Point of Care 122 mg/dl (65-105)
--- NOTE | 2024-09-09 08:29 | P.PNIM_ITS ---
Progress Note: A&P Assessment and Plan (1) HTN (hypertension): Code(s): I10 - Essential (primary) hypertension Status: Acute (2) Acute exacerbation of chronic obstructive pulmonary disease (COPD): Code(s): J44.1 - Chronic obstructive pulmonary disease with (acute) exacerbation Status: Acute (3) Tobacco dependence: Code(s): F17.200 - Nicotine dependence, unspecified, uncomplicated Status: Acute Plan This is a pleasant 69-year-old male with a past medical history COPD, non-insulin diabetes mellitus, hypertension, alcohol use disorder, peripheral neuropathy. The patient presents from home to [place] [facility] via EMS for shortness of breath for 1 day. patient has had cough rhinorrhea subjective fevers and shortness of breath over 1 or 2 days. He reports he is out of his nebulizer machine and does not take medications because he ran out. Acute COPD exacerbation. Patient has a productive cough, tobacco dependence Patient has acute better bronchitis Azithromycin started. X-ray shows no acute pulmonary issue Received Solu-Medrol, continue with prednisone. DuoNebs q.6 hours. Uncontrolled hypertension. continue his [employer] amlodipine 5 mg p.o. q.day and lisinopril 30 mg p.o. q.day. continue management after repeat blood pressure. Uncontrolled type 2 diabetes Likely secondary to steroid Start glargine 10 unit daily Start insulin sliding scale a.c. and q.h.s. Elevated troponin In the ER he had an elevated troponin 2.035 and then 0.042. Patient denies chest pain EKG shows ectopic atrial rhythm no specific ST or T-wave changes Continue Lipitor Possible demand ischemia due toinfection and COPD exacerbation Start aspirin 325 mg once, 80 mg daily p.o. Follow-up echocardiogram pending Telemetry monitoring Consult cardiology for evaluation treatment Appreciate laboratory sample carrier consultation - Cardiac diabetic diet Patient wishes to be full code. Reason lock IV. Subjective Date/time seen: 09/09/24 08:29 Interval history: I saw examined patient today patient feels better today, dyspnea continue to improve, denies chest pain abdomen pain Patient is afebrile, blood pressure stable, Exam Narrative: GENERAL: Pleasant, in no acute distress. Well-nourished. - EYES: EOMI. Anicteric. - HENT: Moist mucous membranes. - LUNGS: Coarse breath sound bilaterall y no wheezing, rhonchi, or rales. - CARDIOVASCULAR: Regular rate and rhyth m. No murmur. No JVD. - ABDOMEN: Soft, non-tender and non-dist ended. No palpable masses. - EXTREMITIES: No edema. Peripheral puls es 2+. Non-tender. - NEUROLOGIC: No focal neurological defi cits. CN II-XII grossly intact. - PSYCHIATRIC: Awake, Alert and oriented x 3. Appropriate mood and affect. - SKIN: No rashes or lesions. Warm. - LYMPH: No cervical lymphadenopathy. Objective Data Vital Signs Vital Signs: Vital Signs - 24 hr 09/08/24 09:29 09/08/24 09:29 09/08/24 09:36 Temperature Pulse Rate 60 58 L Respiratory Rate 18 18 Blood Pressure Pulse Oximetry 98 Oxygen Delivery Room Air 09/08/24 10:00 09/08/24 11:39 09/08/24 12:00 Temperature 97.8 F Pulse Rate 71 71 Respiratory Rate 22 H Blood Pressure 143/74 H Pulse Oximetry 100 100 Oxygen Delivery Room Air 09/08/24 12:00 09/08/24 14:00 09/08/24 14:17 Temperature Pulse Rate 73 71 72 Respiratory Rate 18 Blood Pressure Pulse Oximetry Oxygen Delivery 09/08/24 14:26 09/08/24 16:00 09/08/24 16:00 Temperature 98 F Pulse Rate 68 76 74 Respiratory Rate 18 20 Blood Pressure 161/80 H Pulse Oximetry 100 Oxygen Delivery 09/08/24 16:00 09/08/24 18:00 09/08/24 20:00 Temperature Pulse Rate 86 75 Respiratory Rate Blood Pressure Pulse Oximetry 100 Oxygen Delivery Room Air 09/08/24 20:02 09/08/24 21:30 09/08/24 21:42 Temperature 98.1 F Pulse Rate 79 77 77 Respiratory Rate 20 20 20 Blood Pressure 150/70 H Pulse Oximetry 96 Oxygen Delivery 09/08/24 22:00 09/09/24 00:00 09/09/24 00:06 Temperature 98.1 F Pulse Rate 76 76 82 Respiratory Rate 20 Blood Pressure 128/65 Pulse Oximetry 95 Oxygen Delivery 09/09/24 02:00 09/09/24 02:25 09/09/24 02:37 Temperature Pulse Rate 68 68 68 Respiratory Rate 16 16 Blood Pressure Pulse Oximetry Oxygen Delivery 09/09/24 03:41 09/09/24 04:00 02/13/25 05:59 Temperature 97.6 F Pulse Rate 65 63 68 Respiratory Rate 20 16 Blood Pressure 111/87 Pulse Oximetry 100 Oxygen Delivery 09/09/24 06:00 09/09/24 06:07 09/09/24 08:00 Temperature 97.4 F L Pulse Rate 61 68 63 Respiratory Rate 16 20 Blood Pressure 142/88 H Pulse Oximetry 99 Oxygen Delivery Intake/Output Intake/Output: Intake & Output 09/06/24 09/07/24 09/08/24 09/09/24 23:59 23:59 23:59 23:59 Intake Total 300 2160 250 Output Total 550 Balance 300 1610 250 Meds/Results Medications: Active Medications Generic Name Dose Route Start Last Admin Trade Name Freq PRN Reason Stop Dose Admin Acetaminophen 650 mg 09/07/24 23:12 Acetaminophen 325 Mg Tablet PO Q4H PRN Mild Pain (1-3) or Fever Albuterol/Ipratropium 3 ml 09/08/24 02:00 09/09/24 02:25 Ipratropium 0.5 Mg/Albuterol Sulfate 2.5 Mg Ampul.Neb 3 Ml INHALATION 3 ml Q6HRT KELVIN Administration Amlodipine Besylate 5 mg 09/08/24 09:00 09/08/24 01:30 Amlodipine Besylate 5 Mg Tablet PO Not Given DAILY KELVIN Atorvastatin Calcium 80 mg 09/08/24 09:00 09/08/24 09:29 Atorvastatin 40 Mg Tablet PO 80 mg DAILY KELVIN Administration Dextrose 12.5 gm 09/07/24 23:22 Dextrose 50% 25 Gm/50 Ml Syringe IV PUSH PRN PRN Hypoglycemia Protocol Enoxaparin Sodium 40 mg 09/08/24 09:00 09/08/24 09:29 Enoxaparin 40 Mg/0.4 Ml Syringe SUB-Q 40 mg DAILY KELVIN Administration Gabapentin 300 mg 09/08/24 09:00 09/08/24 16:41 Gabapentin 300 Mg Capsule BY MOUTH 300 mg BID KELVIN Administration Glucose 15 gm 09/07/24 23:22 Glucose Oral Gel 15 Gm Of Glucse In 37.5 Gm Tube PO PRN PRN Hypoglycemia Protocol Dextrose 1,000 mls @ 100 mls/hr 09/07/24 23:22 Dextrose 5% 1,000 Ml IVPB PRN PRN Hypoglycemia Protocol Azithromycin 250 mg/ Sodium 250 mls @ 250 mls/hr 09/08/24 22:00 09/08/24 22:19 Chloride IVPB 250 mls/hr Q24H KELVIN Administration Insulin Aspart 3 - 6 units 09/08/24 12:00 09/08/24 16:41 Insulin Aspart (*Bkc) 100 Units/Ml SUB-Q Not Given TIDWM KELVIN Protocol Insulin Aspart 1 - 3 units 09/08/24 21:00 09/08/24 20:10 Insulin Aspart (*Bkc) 100 Units/Ml SUB-Q 1 units HS KELVIN Administration Protocol Insulin Glargine 10 units 09/08/24 09:00 09/08/24 09:26 Insulin Glargine (*Bkc) 100 Units/Ml SUB-Q 10 units DAILY KELVIN Administration Lisinopril 30 mg 09/08/24 09:00 09/08/24 01:31 Lisinopril 10 Mg Tablet PO Not Given DAILY KELVIN Perflutren Lipid Microsphere 0 ml 09/08/24 10:18 Perflutren Lipid Microspheres 1.5 Ml Vial Diluted To 10 Ml Total Volume IV PUSH 09/11/24 10:18 ONCE PRN adequate visualization Protocol Prednisone 40 mg 09/08/24 08:00 09/08/24 09:30 Prednisone 20 Mg Tablet PO 40 mg DAILY@0800 [facility] Administration Fluticasone/Salmeterol 2 puff 09/08/24 08:00 09/08/24 21:30 Fluticasone/Salmeterol 115-21 Mcg Inhaler 1 Puff INHALATION 2 puff Q12HRT KELVIN Administration Radiology Results: ITS Impressions Chest X-Ray 09/07/24 18:40 IMPRESSION: No focal infiltrate or effusion. Labs Labs: Laboratory Results - last 24 hr 09/08/24 09/08/24 09/08/24 11:28 16:14 19:47 POC Capillary Glucose 182 H 176 H 209 H 09/09/24 07:51 POC Capillary Glucose 122 H
[2024-09-09] MEDS: amLODIPine BESYLATE 5 MG TABLET PO (09:37)
[2024-09-09] MEDS: INSULIN GLARGINE (*BKC) 100 UNITS/ML 10 UNITS SUB-Q (09:37)
[2024-09-09] MEDS: predniSONE 20 MG TABLET 40 MG PO (09:37)
[2024-09-09] MEDS: ATORVASTATIN 40 MG TABLET 80 MG PO (09:37)
[2024-09-09] MEDS: lisinopriL 10 MG TABLET 30 MG PO (09:38)
[2024-09-09] MEDS: GABAPENTIN 300 MG CAPSULE BY MOUTH ×2 (09:38→18:12)
[2024-09-09] MEDS: ENOXAPARIN 40 MG/0.4 ML SYRINGE SUB-Q (09:39)
--- NOTE | 2024-09-09 10:18 | ECHO_ITS ---
Patient Info Name: Philip Barron Age: 69 years : 1955 Gender: Male Ht: 73 in Wt: 236 lbs BSA: 2.37 m2 HR: 68 bpm BP: 118 / 87 mmHg Heart Rhythm: Sinus Rhythm Technical Quality: Good Exam Date: 09/09/2024 2:06 PM Exam Location: Echo Lab Exam Room: [facility] Patient Status: Inpatient Admit Date: 09/07/2024 Staff Ordering Physician: Dawna Hobbs MD Physical Therapy Supervisor: Janet Hansen RDCS Attending Provider: Rosi Ramos MD Exam Type: CA echo doppler color flow Study Info Indications - Elevated troponin Complete two-dimensional, color flow and Doppler transthoracic echocardiogram is performed. Summary 1. Left ventricular chamber dimension is normal. 2. Left ventricular systolic function is normal, estimated at 60-65%. 3. There is mildly increased left ventricular wall thickness. 4. The left ventricular diastolic function is grade I diastolic dysfunction. 5. Right ventricular systolic function is normal. 6. Left atrial chamber dimension is mildly enlarged. 7. The aortic root size at the sinus of Valsalva is mildly dilated. 8. No significant valvular disease. Left Ventricle Left ventricular chamber dimension is normal. Left ventricular systolic function is normal, estimated at 60-65%. There is mildly increased left ventricular wall thickness. The left ventricular diastolic function is grade I diastolic dysfunction. Right Ventricle Right ventricular chamber dimension is normal. Right ventricular systolic function is normal. Left Atria Left atrial chamber dimension is mildly enlarged. Right Atria Right atrial chamber dimension is normal. Atrial Septum Intact interatrial septum visualized by color flow imaging. Aortic Valve The aortic valve is not well visualized. There is no aortic valve stenosis. There is no aortic valve regurgitation. Pulmonic Valve The pulmonic valve is not well visualized. Mitral Valve There is no mitral valve regurgitation. Tricuspid Valve There is trace tricuspid valve regurgitation. Pericardium/Pleural The pericardium appears epicardial fat pad. There is no pericardial effusion. Inferior Vena Cava Normal inferior vena cava with >50% collapse upon inspiration consistent with normal right atrial pressure, 3 mmHg. Aorta The aortic root size at the sinus of Valsalva is mildly dilated. Left Ventricular Outflow Tract Name Value Normal LVOT 2D LVOT Diameter 2.5 cm LVOT Doppler LVOT Peak Gradient 3 mmHg LVOT Mean Gradient 2 mmHg LVOT VTI 17 cm LVOT VTI/AV VTI Ratio 1.0 LVOT Stroke Volume 81 ml LVOT CO 6.4 l/min LVOT CI 2.7 l/min/m2 Pulmonic Valve Name Value Normal PV Doppler PV Peak Gradient 2 mmHg Mitral Valve Name Value Normal MV Doppler MV Peak Gradient 3 mmHg MV Mean Gradient 1 mmHg MV Decel [place] 398 cm/s2 MV PHT 61 ms MV Area (PHT) 3.6 cm2 4.0-5.0 MV Area (Cont Eq VTI) 3.4 cm2 MV Regurgitation Doppler MR Peak Gradient 48 mmHg MV Diastolic Function MV E Peak Velocity 83 cm/s MV A Peak Velocity 66 cm/s MV E/A 1.3 MV Decel Time 209 ms MV Annular TDI MV E/e' (Septal) 10.9 <=8.0 MV E/e' (Lateral) 6.6 <=8.0 MV E/e' (Average) 8.8 Tricuspid Valve Name Value Normal TV Regurgitation Doppler TR Peak Velocity 282 cm/s TR Peak Gradient 32 mmHg Estimated PAP/RSVP RA Pressure 3 mmHg <=5 PA Systolic Pressure 35 mmHg <36 RV Systolic Pressure 35 mmHg <36 Aortic Valve Name Value Normal AV Doppler AV Peak Velocity 99 cm/s AV Peak Gradient 4 mmHg AV Mean Gradient 2 mmHg AV VTI 17 cm AV Area (Cont Eq VTI) 4.8 cm2 >=3.0 AV Area (Cont Eq Master) 4.3 cm2 AV Regurgitation 2D LVOT Area 4.7 cm2 Ventricles Name Value Normal LV Dimensions 2D/MM IVS Diastolic Thickness (2D) 1.0 cm 0.6-1.0 LVID Diastole (2D) 5.8 cm 4.2-5.8 LVIW Diastolic Thickness (2D) 1.1 cm 0.6-1.0 LVID Systole (2D) 4.2 cm 2.5-4.0 LVOT Diameter 2.5 cm LV Mass (2D Cubed) 234.25 g 88.00-224.00 LV Mass Index (2D Cubed) 99 g/m2 49-115 Relative Wall Thickness (2D) 0.36 LV Fractional Shortening/Ejection Fraction 2D/MM LV Fractional Shortening (2D) 27 % 25-43 LV EF (2D Teicholz) 52 % 52-72 LV Diastolic Volume (4C MOD) 155 ml LV EF (4C MOD) 65 % LV Diastolic Length (4C) 9.2 cm LV Systolic Length (4C) 7.8 cm LV Stroke Volume (4C MOD) 101 ml Atria Name Value Normal LA Dimensions LA Volume (4C A-L) 112 ml Report Signatures
[2024-09-09] MEDS: FLUTICASONE/SALMETEROL 115-21 MCG INHALER 1 PUFF 2 PUFF INHALATION (10:19)
[2024-09-09 11:48] LABS: Glucose Point of Care 134 mg/dl (65-105)
[2024-09-09 16:27] LABS: Glucose Point of Care 188 mg/dl (65-105)
[2024-09-09 20:26] LABS: Glucose Point of Care 220 mg/dl (65-105)
[2024-09-09] MEDS: INSULIN ASPART (*BKC) 100 UNITS/ML SUB-Q (20:58)
[2024-09-09] MEDS: AZITHROMYCIN IV 250 MG in SODIUM CHLORIDE 0.9% IV 250 ML IVPB (21:00)
[2024-09-10] VITALS (13 sets, daily range): BP systolic 133–172; BP diastolic 71–96; PULSE 60–85; RESP 14–24; TEMP 36.4–36.5; O2SAT 97–100
[2024-09-10] MEDS: IPRATROPIUM 0.5 MG/ALBUTEROL SULFATE 2.5 MG AMPUL.NEB 3 ML INHALATION ×2 (02:31→07:30)
[2024-09-10] MEDS: FLUTICASONE/SALMETEROL 115-21 MCG INHALER 1 PUFF 2 PUFF INHALATION (07:31)
[2024-09-10 09:29] LABS: Glucose Point of Care 111 mg/dl (65-105)
--- NOTE | 2024-09-10 09:32 | P.PNIM_ITS ---
Progress Note: A&P Assessment and Plan (1) HTN (hypertension): Code(s): I10 - Essential (primary) hypertension Status: Acute (2) Acute exacerbation of chronic obstructive pulmonary disease (COPD): Code(s): J44.1 - Chronic obstructive pulmonary disease with (acute) exacerbation Status: Acute (3) Tobacco dependence: Code(s): F17.200 - Nicotine dependence, unspecified, uncomplicated Status: Acute Plan This is a pleasant 69-year-old male with a past medical history COPD, non-insulin diabetes mellitus, hypertension, alcohol use disorder, peripheral neuropathy. The patient presents from home to [place] via EMS for shortness of breath for 1 day. patient has had cough rhinorrhea subjective fevers and shortness of breath over 1 or 2 days. He reports he is out of his nebulizer machine and does not take medications because he ran out. Acute COPD exacerbation. Patient has a productive cough, tobacco dependence Patient has acute better bronchitis Azithromycin started. X-ray shows no acute pulmonary issue Received Solu-Medrol, continue with prednisone. DuoNebs q.6 hours. Uncontrolled hypertension. continue his [employer] amlodipine 5 mg p.o. q.day and lisinopril 30 mg p.o. q.day. Controlled now Uncontrolled type 2 diabetes Likely secondary to steroid Start glargine 10 unit daily Start insulin sliding scale a.c. and q.h.s. Resume home medication on discharge Elevated troponin In the ER he had an elevated troponin 2.035 and then 0.042. Patient denies chest pain EKG shows ectopic atrial rhythm no specific ST or T-wave changes Continue Lipitor Possible demand ischemia due toinfection and COPD exacerbation Start aspirin 325 mg once, 80 mg daily p.o. Follow-up echocardiogram GENERAL: Pleasant, in no acute distress. Well- nourished. - EYES: EOMI. Anicteric. - HENT: Moist mucous membranes. - LUNGS: Clear to auscultation bilaterally, no wheezing, rhonchi, or rales. - CARDIOVASCULAR: Regular rate and rhythm. No murmur. No JVD. - ABDOMEN: Soft, non-tender and non-distended. No palpable masses. - EXTREMITIES: No edema. Peripheral pulses 2+. Non-tender. - NEUROLOGIC: No focal neurological deficits. CN II-XII grossly intact. - PSYCHIATRIC: Awake, Alert and oriented x 3. Appropriate mood and affect. - SKIN: No rashes or lesions. Warm. - LYMPH: No cervical lymphadenopathy. Telemetry monitoring Consult cardiology for evaluation treatment Appreciate mainframe systems administrator consultation - Cardiac diabetic diet Patient wishes to be full code. Reason lock IV. Subjective Date/time seen: 09/10/24 09:32 Interval history: I saw examined patient today. Patient feels comfortable, denies shortness breath, cough, chest pain abdomen pain Patient is afebrile, blood pressure stable, patient is afebrile blood pressure stable no O2 desaturation on room air, Exam Narrative: GENERAL: Pleasant, in no acute distress. Well-nourished. - EYES: EOMI. Anicteric. - HENT: Moist mucous membranes. - LUNGS: Clear to auscultation bilateral ly, no wheezing, rhonchi, or rales. - CARDIOVASCULAR: Regular rate and rhyth m. No murmur. No JVD. - ABDOMEN: Soft, non-tender and non-dist ended. No palpable masses. - EXTREMITIES: No edema. Peripheral puls es 2+. Non-tender. - NEUROLOGIC: No focal neurological defi cits. CN II-XII grossly intact. - PSYCHIATRIC: Awake, Alert and oriented x 3. Appropriate mood and affect. - SKIN: No rashes or lesions. Warm. - LYMPH: No cervical lymphadenopathy. Objective Data Vital Signs Vital Signs: Vital Signs - 24 hr 09/09/24 10:00 09/09/24 10:19 09/09/24 10:23 Temperature Pulse Rate 64 68 Respiratory Rate 18 Blood Pressure Pulse Oximetry 99 Oxygen Delivery Room Air 09/09/24 10:33 09/09/24 12:00 09/09/24 12:00 Temperature 97.5 F L Pulse Rate 65 74 82 Respiratory Rate 18 16 Blood Pressure 162/89 H Pulse Oximetry 99 Oxygen Delivery 09/09/24 12:00 09/09/24 14:00 09/09/24 15:11 Temperature Pulse Rate 80 72 Respiratory Rate 18 Blood Pressure Pulse Oximetry Oxygen Delivery Room Air 09/09/24 15:24 09/09/24 16:00 09/09/24 16:00 Temperature Pulse Rate 72 76 Respiratory Rate 18 Blood Pressure Pulse Oximetry Oxygen Delivery Room Air 09/09/24 16:00 09/09/24 18:00 09/09/24 19:35 Temperature 97.5 F L Pulse Rate 74 74 65 Respiratory Rate 24 H 18 Blood Pressure 156/84 H Pulse Oximetry 100 Oxygen Delivery 09/09/24 19:38 09/09/24 19:47 09/09/24 20:00 Temperature Pulse Rate 70 Respiratory Rate 18 Blood Pressure Pulse Oximetry 98 Oxygen Delivery Room Air Room Air 09/09/24 20:00 09/09/24 20:36 09/09/24 22:00 Temperature 97.5 F L Pulse Rate 72 77 71 Respiratory Rate 24 H Blood Pressure 149/92 H Pulse Oximetry 100 Oxygen Delivery 09/09/24 23:55 09/10/24 00:00 09/10/24 00:00 Temperature Pulse Rate 72 83 Respiratory Rate 18 Blood Pressure Pulse Oximetry Oxygen Delivery Room Air 09/10/24 00:21 09/10/24 00:30 09/10/24 02:00 Temperature 97.6 F Pulse Rate 85 65 Respiratory Rate 24 H Blood Pressure 172/96 H 150/83 H Pulse Oximetry 100 Oxygen Delivery 09/10/24 02:32 09/10/24 04:00 09/10/24 04:00 Temperature Pulse Rate 77 60 Respiratory Rate 20 Blood Pressure Pulse Oximetry Oxygen Delivery Room Air 09/10/24 04:20 09/10/24 06:00 09/10/24 07:32 Temperature 97.6 F Pulse Rate 81 65 61 Respiratory Rate 24 H 14 Blood Pressure 133/73 Pulse Oximetry 100 Oxygen Delivery 09/10/24 07:32 09/10/24 07:52 09/10/24 08:12 Temperature 97.7 F Pulse Rate 64 66 Respiratory Rate 18 18 Blood Pressure 152/71 H Pulse Oximetry 97 100 Oxygen Delivery Room Air Intake/Output Intake/Output: Intake & Output 09/07/24 09/08/24 09/09/24 09/10/24 23:59 23:59 23:59 23:59 Intake Total 300 2410 1760 550 Output Total 550 Balance 300 1860 1760 550 Meds/Results Medications: Active Medications Generic Name Dose Route Start Last Admin Trade Name Freq PRN Reason Stop Dose Admin Acetaminophen 650 mg 09/07/24 23:12 Acetaminophen 325 Mg Tablet PO Q4H PRN Mild Pain (1-3) or Fever Albuterol/Ipratropium 3 ml 09/08/24 02:00 09/10/24 07:30 Ipratropium 0.5 Mg/Albuterol Sulfate 2.5 Mg Ampul.Neb 3 Ml INHALATION 3 ml Q6HRT KELVIN Administration Amlodipine Besylate 5 mg 09/08/24 09:00 09/09/24 09:37 Amlodipine Besylate 5 Mg Tablet PO 5 mg DAILY KELVIN Administration Atorvastatin Calcium 80 mg 09/08/24 09:00 09/09/24 09:37 Atorvastatin 40 Mg Tablet PO 80 mg DAILY KELVIN Administration Dextrose 12.5 gm 09/07/24 23:22 Dextrose 50% 25 Gm/50 Ml Syringe IV PUSH PRN PRN Hypoglycemia Protocol Enoxaparin Sodium 40 mg 09/08/24 09:00 09/09/24 09:39 Enoxaparin 40 Mg/0.4 Ml Syringe SUB-Q 40 mg DAILY KELVIN Administration Gabapentin 300 mg 09/08/24 09:00 09/09/24 18:12 Gabapentin 300 Mg Capsule BY MOUTH 300 mg BID KELVIN Administration Glucose 15 gm 09/07/24 23:22 Glucose Oral Gel 15 Gm Of Glucse In 37.5 Gm Tube PO PRN PRN Hypoglycemia Protocol Dextrose 1,000 mls @ 100 mls/hr 09/07/24 23:22 Dextrose 5% 1,000 Ml IVPB PRN PRN Hypoglycemia Protocol Azithromycin 250 mg/ Sodium 250 mls @ 250 mls/hr 09/08/24 22:00 09/09/24 23:00 Chloride IVPB Infused Q24H KELVIN Infusion Insulin Aspart 3 - 6 units 09/08/24 12:00 09/09/24 17:53 Insulin Aspart (*Bkc) 100 Units/Ml SUB-Q Not Given TIDWM [facility] Protocol Insulin Aspart 1 - 3 units 09/08/24 21:00 09/09/24 20:58 Insulin Aspart (*Bkc) 100 Units/Ml SUB-Q 1 units HS KELVIN Administration Protocol Insulin Glargine 10 units 09/08/24 09:00 09/09/24 09:37 Insulin Glargine (*Bkc) 100 Units/Ml SUB-Q 10 units DAILY KELVIN Administration Lisinopril 30 mg 09/08/24 09:00 09/09/24 09:38 Lisinopril 10 Mg Tablet PO 30 mg DAILY KELVIN Administration Perflutren Lipid Microsphere 0 ml 09/08/24 10:18 Perflutren Lipid Microspheres 1.5 Ml Vial Diluted To 10 Ml Total Volume IV PUSH 09/11/24 10:18 ONCE PRN adequate visualization Protocol Prednisone 40 mg 09/08/24 08:00 09/09/24 09:37 Prednisone 20 Mg Tablet PO 40 mg DAILY@0800 KELVIN Administration Fluticasone/Salmeterol 2 puff 09/08/24 08:00 09/10/24 07:31 Fluticasone/Salmeterol 115-21 Mcg Inhaler 1 Puff INHALATION 2 puff Q12HRT KELVIN Administration Radiology Results: ITS Impressions Chest X-Ray 09/07/24 18:40 IMPRESSION: No focal infiltrate or effusion. Labs Labs: Laboratory Results - last 24 hr 09/09/24 09/09/24 09/09/24 11:43 15:29 20:08 POC Capillary Glucose 134 H 188 H 220 H 09/10/24 07:19 POC Capillary Glucose 111 H
--- NOTE | 2024-09-10 09:34 | P.DS_ITS ---
DS: Admitting Diagnosis Discharge Date 09/10 Admitting Diagnosis (1) HTN (hypertension): Code(s): I10 - Essential (primary) hypertension Status: Acute (2) Acute exacerbation of chronic obstructive pulmonary disease (COPD): Code(s): J44.1 - Chronic obstructive pulmonary disease with (acute) exacerbation Status: Acute (3) Tobacco dependence: Code(s): F17.200 - Nicotine dependence, unspecified, uncomplicated Status: Acute DS: Discharge Diagnosis Discharge Diagnosis (1) HTN (hypertension): Code(s): I10 - Essential (primary) hypertension Status: Acute (2) Acute exacerbation of chronic obstructive pulmonary disease (COPD): Code(s): J44.1 - Chronic obstructive pulmonary disease with (acute) exacerbation Status: Acute (3) Tobacco dependence: Code(s): F17.200 - Nicotine dependence, unspecified, uncomplicated Status: Acute DS: Summary Hospital Course Hospital Course: This is a pleasant 69-year-old male with a past medical history COPD, non-insulin diabetes mellitus, hypertension, alcohol use disorder, peripheral neuropathy. The patient presents from home to [place] [facility] via EMS for shortness of breath for 1 day. patient has had cough rhinorrhea subjective fevers and shortness of breath over 1 or 2 days. He reports he is out of his nebulizer machine and does not take medications because he ran out. The following med issues have been addressed during hospitalization Acute COPD exacerbation. Patient has a productive cough, tobacco dependence Patient has acute better bronchitis Azithromycin started. X-ray shows no acute pulmonary issue Received Solu-Medrol, continue with prednisone. DuoNebs q.6 hours. Continue Symbicort 2 5 b.i.d., albuterol inhaler and DuoNeb nebulizer p.r.n. Continue prednisone 20 mg daily p.o. azithromycin 250 mg daily for 3 days Uncontrolled hypertension. continue his [employer] amlodipine 5 mg p.o. q.day and lisinopril 30 mg p.o. q.day. Controlled now Uncontrolled type 2 diabetes Likely secondary to steroid Start glargine 10 unit daily Start insulin sliding scale a.c. and q.h.s. Resume home medication on discharge Elevated troponin In the ER he had an elevated troponin 2.035 and then 0.042. Patient denies chest pain EKG shows ectopic atrial rhythm no specific ST or T-wave changes Continue Lipitor Possible demand ischemia due toinfection and COPD exacerbation Start aspirin 325 mg once, 80 mg daily p.o. Follow-up echocardiogram GENERAL: Pleasant, in no acute distress. Well- nourished. - EYES: EOMI. Anicteric. - HENT: Moist mucous membranes. - LUNGS: Clear to auscultation bilaterally, no wheezing, rhonchi, or rales. - CARDIOVASCULAR: Regular rate and rhythm. No murmur. No JVD. - ABDOMEN: Soft, non-tender and non-distended. No palpable masses. - EXTREMITIES: No edema. Peripheral pulses 2+. Non-tender. - NEUROLOGIC: No focal neurological deficits. CN II-XII grossly intact. - PSYCHIATRIC: Awake, Alert and oriented x 3. Appropriate mood and affect. - SKIN: No rashes or lesions. Warm. - LYMPH: No cervical lymphadenopathy. Telemetry monitoring Consult cardiology for evaluation treatment Appreciate shoes hand sewer consultation No further cardiac ischemia workup per shoes hand sewer recommendation - Time Spent with Patient Time attestation: Total time spent providing and/or coordinating discharge services: Exam Narrative: GENERAL: Pleasant, in no acute distress. Well-nourished. - EYES: EOMI. Anicteric. - HENT: Moist mucous membranes. - LUNGS: Clear to auscultation bilateral ly, no wheezing, rhonchi, or rales. - CARDIOVASCULAR: Regular rate and rhyth m. No murmur. No JVD. - ABDOMEN: Soft, non-tender and non-dist ended. No palpable masses. - EXTREMITIES: No edema. Peripheral puls es 2+. Non-tender. - NEUROLOGIC: No focal neurological defi cits. CN II-XII grossly intact. - PSYCHIATRIC: Awake, Alert and oriented x 3. Appropriate mood and affect. - SKIN: No rashes or lesions. Warm. - LYMPH: No cervical lymphadenopathy. DS: Data Data Completed and Pending Labs on day of discharge: Labs from last 24 hours 09/10/24 09/09/24 09/09/24 07:19 20:08 15:29 POC Capillary Glucose 111 H 220 H 188 H 09/09/24 11:43 POC Capillary Glucose 134 H Discharge Plan Discharge Attending physician on discharge: Dawna Hobbs Consulting providers: Danielle Gaspar Discharging Clinician: Dawna Hobbs Anticipated Discharge Date/Time: 09/10/24 09:35 Patient Disposition: Home, Self-Care Activity: as tolerated Diet: as tolerated, heart healthy and diabetic Patient Instructions: Antibiotic Form Patient Language: Amharic Stand Alone Forms: General Discharge Information Follow-up/Referrals: Xander,YAN Huber [Primary Care Provider] - (Patient needs to see primary care doctor in 1 week) Discharge Medications: New (DME) nebulizer accessories Kit See Rx Instructions .Route Qty: 1 0RF Rx Instructions: As directed (DME) nebulizer and compressor Device See Rx Instructions .Route Qty: 1 0RF Rx Instructions: As directed ipratropium-albuterol 0.5 mg-3 mg(2.5 mg base)/3 mL Solution For Nebulization 3 ml inhalation Q6HRT PRN (Reason: Dyspnea) Qty: 60 1RF prednisone 20 mg Tablet 20 mg PO DAILY@0800 Qty: 3 0RF azithromycin 250 mg tablet 250 mg PO DAILY 3 Days Qty: 3 0RF Rx Instructions: start on day 2 of therapy Continued amlodipine 5 mg tablet 5 mg PO DAILY lisinopril 30 mg tablet 30 mg PO DAILY atorvastatin 40 mg Tablet 80 mg PO DAILY 30 Days Qty: 60 0RF Jardiance 10 mg Tablet 10 mg PO DAILY 30 Days Qty: 30 0RF gabapentin 300 mg capsule See Rx Instructions .ROUTE .COMPLEX Qty: 60 3RF Dose Instruction: TAKE 1 CAPSULE BY MOUTH TWICE DAILY Rx Instructions: TAKE 1 CAPSULE BY MOUTH TWICE DAILY budesonide-formoterol [Symbicort] 160-4.5 mcg/actuation HFA aerosol inhaler 1 inh INHALATION DAILY Qty: 1 1RF albuterol sulfate 90 mcg/actuation HFA aerosol inhaler See Rx Instructions .ROUTE .COMPLEX PRN (Reason: Shortness Of Breath) Qty: 1 2RF Rx Instructions: 1 inh inhaled Date of admission: 09/07/24 23:45 Primary Care Provider: NashCecile Admitting Provider: Rosi Ramos Attending physician on admission: Rosi Ramos Condition: Stable
[2024-09-10] MEDS: GABAPENTIN 300 MG CAPSULE BY MOUTH (09:47)
[2024-09-10] MEDS: predniSONE 20 MG TABLET 40 MG PO (09:47)
[2024-09-10] MEDS: lisinopriL 10 MG TABLET 30 MG PO (09:47)
[2024-09-10] MEDS: amLODIPine BESYLATE 5 MG TABLET PO (09:47)
[2024-09-10] MEDS: ATORVASTATIN 40 MG TABLET 80 MG PO (09:48)
[2024-09-10] MEDS: ENOXAPARIN 40 MG/0.4 ML SYRINGE SUB-Q (09:50)
[2024-09-10] MEDS: INSULIN GLARGINE (*BKC) 100 UNITS/ML 10 UNITS SUB-Q (09:53)
[2024-09-10 11:18] LABS: Glucose Point of Care 143 mg/dl (65-105)
--- OUTSIDE RECORDS SUMMARY | 2024-09-13 11:10 | XMS_ITS | Patient Health Summary ---
Author Organization [facility] [employer] Address [address] [place] [address] Care Team Providers Care Aircraft Engine Specialist Name Role Phone Unknown, Provider Primary Care Provider Unavaila ble Note from [facility] [employer] [facility],non-owned Affiliates and Associated Physician Practices is amultiple site organization consisting of ambulatory clinics and hospital sitesin [place], [place] and [place]. This disclosure is being madepursuant to the Care Everywhere program and may not contain all information available regarding this patient. Last updated 18.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 [...] file Gender Identity Male 09/11/2020 8:16 AM STATE APPELLATE CLERK Sexual Orientation Not on file Last Filed Vital Signs Vital Sign Reading Time Taken Comments Blood Pressure 143/89 08/19/2023 3:24 PM STATE APPELLATE CLERK Pulse 71 08/19/2023 3:24 PM STATE APPELLATE CLERK Temperature 36.6 C (97.9 F) 08/19/2023 3:24 PM STATE APPELLATE CLERK Respiratory Rate 18 08/19/2023 3:24 PM STATE APPELLATE CLERK Oxygen Saturation 98% 08/19/2023 3:24 PM STATE APPELLATE CLERK Inhaled Oxygen Concentration - - Weight 110.5 kg (243 lb 9.6 oz) 08/19/2023 3:24 PM STATE APPELLATE CLERK Height 185.4 cm (6' 1 ) 08/19/2023 3:24 PM STATE APPELLATE CLERK Body Mass Index 32.14 08/19/2023 3:24 PM STATE APPELLATE CLERK Medical Devices Implanted Type Area Tailings Worker Device Identifier Shelf Expiration Date Model / Serial / Lot Graft Tissue Avance Nrv 30mm Algrf 4-5mm Implanted:Qty: 1 on 09/12/2020 by Per Glez MD at [facility] Right: Arm [employer] 05/27/2023 [id number] / / [id number] Description:CC Procedures * VAS LEFT ARTERIAL DUPLEX [...] 07/04/2021) * ENDOTRACHEAL TUBE NOTE(Performed 07/04/2021) * VT REVISE MEDIAN N/CARPAL TUNNEL SURG(Performed 07/04/2021) Performed [...] 09/13/2020) Performed for Atrial fibrillation, unspecified type ([facility]) * MAGNESIUM BLOOD(Performed 09/13/2020) * CBC W AUTO DIFFERENTIAL(Performed 09/13/2020) * BASIC METABOLIC PANEL (CALCIUM TOTAL)(Performed 09/13/2020) * GLUCOSE - POINT OF CARE(Performed 09/12/2020) * GLUCOSE - POINT OF CARE(Performed 09/12/2020) * GLUCOSE - POINT OF CARE(Performed 09/12/2020) * ENDOTRACHEAL TUBE NOTE(Performed 09/12/2020) * VT MUSC/TENDON REPAIR EACH; ARM/ELBOW(Performed 09/12/2020) Performed for [...] 09/10/2020) * ENDOTRACHEAL TUBE NOTE(Performed 09/10/2020) * VT EXPLORE WOUND,EXTREMITY(Performed 09/10/2020) Performed for Disorder * [...] LEFT ARTERIAL DUPLEX LE (09/08/2023 10:47 AM STATE APPELLATE CLERK) Anatomical Region Laterality Modality Lower Extremity Intravascular Ul trasound 09/08/2023 9:36 AM STATE APPELLATE CLERK Narrative Procedure Note Rob Yancey MD - 09/11/2023 Jono Morgan MD VASCULAR LAB ORDER DERRICK * VAS ARTERIAL ANKLE ARM INDEX (09/08/2023 10:47 AM STATE APPELLATE CLERK) Anatomical Region Laterality Modality Ankle / Foot, Upper Extremity In travascular Ultrasound 09/08/2023 9:54 AM STATE APPELLATE CLERK Narrative Procedure Note Rob Yancey MD - 09/09/2023 Authorizing Provider Result Kate Morgan MD VASCULAR LAB ORDER DERRICK * VAS CAROTID DUPLEX BILATERAL (09/08/2023 10:36 AM STATE APPELLATE CLERK) Anatomical Region Laterality Modality Neck Intravascular Ul trasound 09/08/2023 9:07 AM STATE APPELLATE CLERK Narrative Procedure Note Rob Yancey MD - [...] evaluation, please review the evaluation forms in [facility]. For details on monitored clinical parameters during the intra-service sedation time, please review the procedure nurse documentation in [facility]. Sarwat De Leon MD have personally reviewed [...] angiography to further evaluate degree of stenosis. Dye House Supervisor: Tower Operator(s): Andrew Root Vessels: Ultrasound Guided Access of [...] this adult patient was ordered by the hoop riveting machine operator helper, administered intravenously in my presence, and monitored [...] patient evaluation, please review the evaluation in [facility]. For details on monitored clinical parameters during the intra-service sedation time, please review the procedure nurse documentation in [facility]. Procedural detail: The risks, benefits, and alternatives [...] Following a series of exchanges, a 5 Australian 11 cm Glidesheath slender was placed in the radial artery. A radial angiogram was performed through the sheath. A spasmolytic cocktail containing 3000u heparin, 2.5mg verapamil, and 200mcg of nitroglycerin was administered. A 5 Australian Glidecath Golden 2 diagnostic catheter along with [...] angiography to further evaluate degree of stenosis. Dye House Supervisor: Tower Operator(s): Andrew Root Vessels: Ultrasound Guided Access of [...] this adult patient was ordered by the hoop riveting machine operator helper, administered intravenously in my presence, and monitored [...] patient evaluation, please review the evaluation in [facility]. For details on monitored clinical parameters during the intra-service sedation time, please review the procedure nurse documentation in [facility]. Procedural detail: The risks, benefits, and alternatives [...] needle. Followinga series of exchanges, a 5 Australian 11 cm Glidesheath slender was placed inthe radial artery. A radial angiogram was performed through the sheath. A spasmolytic cocktail containing 3000u heparin, 2.5mg verapamil, [id number] of nitroglycerin was administered. A 5 Australian Glidecath Golden 2 diagnostic catheter along with [...] the arterial system.Hemostasis was achieved using a Contratan.do radial band closure device. Hemostasis was immediate [...] intravenously in my presence, and [facility] as an independent trained observer who was present throughout the procedure. The following parameters were monitored: oxygen saturation, heart rate, blood pressure, and response to care. For details on pre-moderate sedation and post-moderate sedation patient evaluation,please review the evaluation forms in [facility]. For details on monitored clinical parameters during the intra-service sedation time, please review the procedure nurse documentation in [facility]. ISarwat MD have personally reviewed and interpreted [...] Type Cap Fingerstick 2022 1:50 PM CDT [facility] Blood BLOOD SPECIMEN / Unknown 12/16/2022 8:49 AM CDT 12/16/2022 1:50 PM CDT Sarwat Lanza MD LAB - POINT OF CARE ORDERABLES Performing Organization Address [facility] Co de Phone Number [address] [address], [facility] [phone] * PT-INR [facility] (12/16/2022 8:35 AM CDT) Only the most recent of2 resultswithin the time period is included. PT 14.4 12.1 - 14.8 Seconds 12/16/2022 9:26 AM CDT [facility] INR 1.1 See Comment 12/16/2022 9:26 AM T [facility] Comment:The suggested therap eutic range for standard coumadin (warfarin) therapy is an INR of 2.0-3.0. For high-risk patients (Mechanical Mitral Valve Prosthesis, etc.), the suggested prophylactic therapeutic range is an INR of 2.5-3.5. Blood BLOOD SPECIMEN / Unknown Venipuncture / Unknown 12/16/2022 8:35 AM CDT 12/16/2022 9:02 AM CDT Fanta Grubbs PA-C LAB - COAGULATION ORDERABLES Performing Organization Address [facility]/ZIP Co de Phone Number [address] [phone], [facility] [phone] * (ABNORMAL) CBC W AUTO DIFFERENTIAL (12/16/2022 8:35 AM CDT) Only the most recent of5 resultswithin the time period is included. WBC 7.6 3.5 - 10.5 10 3/uL 12/16/2022 9:06 AM CDT [facility] RBC 4.53 4.30 - 5.70 10 6/uL 12/16/2022 9:06 AM [facility] Hemoglobin 12.9 12.0 - 17.6 g/dL 12/16/2022 9:06 AM [facility] Hematocrit 40.6 35.2 - 51.7 % 12/16/2022 9:06 AM [facility] MCV 89.6 80.7 - 98.3 fL 12/16/2022 9:06 AM [facility] MCH 28.5 26.7 - 34.0 pg 12/16/2022 9:06 AM [facility] MCHC 31.8 30.8 - 35.9 g/dL 12/16/2022 9:06 AM [facility] RDW-SD 46.0 36.0 - 50.0 fL 12/16/2022 9:06 AM [facility] RDW-CV 14.0 11.2 - 14.8 % 12/16/2022 9:06 AM [facility] Platelet Count 214 150 - 400 10 3/uL 12/16/2022 9:06 AM [facility] MPV 10.5 9.4 - 12.9 fL 12/16/2022 9:06 AM [facility] nRBC Absolute 0.00 0 10 3/uL 12/16/2022 9:06 AM [facility] nRBC Auto 0.0 0 /100 WBC 12/16/2022 9:06 AM [facility] Neutrophils % 70.7(H) 35.0 - 70.0 % 12/16/2022 9:06 AM [facility] Lymphocytes % 19.7(L) 20.0 - 43.0 % 12/16/2022 9:06 AM [facility] Monocytes % 6.4 5.0 - 13.0 % 12/16/2022 9:06 AM [facility] Eosinophils % 2.1 0.0 - 6.0 % 12/16/2022 9:06 AM [facility] Basophil % 0.4 0.0 - 2.0 % 12/16/2022 9:06 AM [facility] Neutrophils Absolute 5.39 1.60 - 7.00 10 3/uL 12/16/2022 9:06 AM [facility] Lymphocyte Absolute 1.50 1.10 - 3.90 10 3/uL 12/16/2022 9:06 AM [facility] Monocytes Absolute 0.49 0.26 - 1.07 10 3/uL 12/16/2022 9:06 AM [facility] Eosinophils Absolute 0.16 0.00 - 0.47 10 3/uL 12/16/2022 9:06 AM [facility] Basophils Absolute 0.03 0.00 - 0.08 10 3/uL 12/16/2022 9:06 AM [facility] Immature Granulocytes % 0.7 0.0 - 1.0 % 12/16/2022 9:06 AM [facility] Immature Granulocytes Absolute 0.05 12/16/2022 9:06 AM [facility] Blood BLOOD SPECIMEN / Unknown Venipuncture / Unknown 12/16/2022 8:35 AM CDT 12/16/2022 9:02 AM CDT Fanta Grubbs PA-C LAB - HEMATOLOGY ORDERABLES [facility] [address] [place] [phone], [facility] [phone] * (ABNORMAL) BASIC METABOLIC PANEL (CALCIUM TOTAL) (12/16/2022 8:35 AM CDT) Only the most recent of5 resultswithin the time period is included. BUN 10 7 - 26 mg/dL 12/16/2022 9:29 AM [facility] Creatinine 0.94 0.71 - 1.16 mg/dL 12/16/2022 9:29 AM [facility] Sodium 143 136 - 145 mmol/L 12/16/2022 9:29 AM [facility] Potassium 4.4 3.5 - 4.5 mmol/L 12/16/2022 9:29 AM [facility] Chloride 105 98 - 107 mmol/L 12/16/2022 9:29 AM [facility] CO2 27 22 - 29 mmol/L 12/16/2022 9:29 AM [facility] Glucose 129(H) 70 - 115 mg/dL 12/16/2022 9:29 AM [facility] Calcium 9.3 8.4 - 10.2 mg/dL 12/16/2022 9:29 AM [facility] Anion Gap 15 8 - 18 12/16/2022 9:29 AM [facility] BUN/Creatinine Ratio 11 7 - 23 12/16/2022 9:29 AM [facility] Osmolality Calculated 297 270 - 300 mOsm/kg 12/16/2022 9:29 AM [facility] eGFR by CKD-EPI 90 >=90 mL/min/1.7 3 m2 12/16/2022 9:29 AM [facility] Blood BLOOD SPECIMEN / Unknown Venipuncture / Unknown 12/16/2022 8:35 AM CDT 12/16/2022 9:02 AM CDT Fanta Grubbs PA-C LAB - CHEMISTRY O RDERABLES Performing Organization Address City/State/[facility] Co de Phone Number [facility] [address] [place] [phone], [facility] [phone] * CARDIAC RHYTHM STRIP ORDER (07/09/2021 5:42 PM STATE APPELLATE CLERK) Only the most recent of2 resultswithin the time period is included. Narrative 07/09/2021 5:42 PM STATE APPELLATE CLERK Ordered by an unspecified provider. Scanned Document CARDIAC SERVICES ORD ERABLES * ETT LINE PERFORMABLE (07/04/2021 11:28 AM STATE APPELLATE CLERK) Narrative Mckenzie Hagen APRN-CRNA - 07/04/2021 11:28 AM STATE APPELLATE CLERK Mckenzie Hagen APRN-CRNA 07/04/2021 11:29 AM Endotracheal Tube Placement: Patient Location: OR. Intubation Event Date/Time: 07/04/2021 11:18 AM Procedure: intubation ([id number]). Procedure Section: Sedation: under general anesthesia. Indications [...] CDT Per Marrufo MD 05/31/2021 3:[address], [address] [phone] Patient: Philip Barron V #: Physician: Per Marrufo MD Sex: Male ID#: [id number] Ref Phys: Angela Garvey. PA-Med : 1955 Date: 05/31/2021 Top Tile Decorator: Jona Cool Patient Complaints: The patient is [...] of brachial plexopathy. Per Marrufo MD Diplomate, [place] [employer] Psychiatry and Neurology Board Certified [...] ORDERABLES * APHERESIS/TRANSFUSION ORDER (09/18/2020 6:59 PM STATE APPELLATE CLERK) Narrative 09/18/2020 6:59 PM STATE APPELLATE CLERK Ordered by an unspecified provider. Scanned Document NURSING - VITAL SIGN S AND ASSESSMENT * EKG 12-LEAD (09/13/2020 6:03 AM STATE APPELLATE CLERK) Ventricular Rate 73 BPM [facility] Atrial Rate 73 BPM [facility] P-R Interval 138 ms [facility] QRS Duration ms 90 ms [facility] Q-T Interval ms 412 ms [facility] QTC Calculation (Bezet) 453 ms [facility] Calculated R [place] 31 degrees [facility] Calculated T [place] 72 degrees [facility] Interpretation EKG NORMAL SINUS RHYTHM NONSPECIFIC T WAVE ABNORMALITY ABNORMAL ECG Confirmed by MD Claudia, Iker ([id number]) on 09/13/2020 7:50:42 AM [facility] MUSE 09/13/2020 6:03 AM STATE APPELLATE CLERK 09/13/2020 7:50 AM STATE APPELLATE CLERK Fer Jasso DO ECG ORDERABLES Performing Organization Address City/[facility]/ZIP Co de Phone Number [facility] MUSE * MAGNESIUM BLOOD (09/13/2020 2:51 AM STATE APPELLATE CLERK) Only the most recent of3 resultswithin the time period is included. Magnesium 2.0 1.6 - 2.6 mg/dL 09/13/2020 4:42 AM STATE APPELLATE CLERK [facility] Blood BLOOD SPECIMEN / Unknown Lab Venipuncture / Unknown 09/13/2020 2:51 AM STATE APPELLATE CLERK 09/13/2020 4:13 AM STATE APPELLATE CLERK Fer Jasso DO LAB - CHEMISTRY ORDE RABLES Performing Organization Address City/[facility] Co de Phone Number [facility] [address] [phone] * ETT LINE PERFORMABLE (09/12/2020 1:04 PM STATE APPELLATE CLERK) Narrative Hayley Johnston APRN-CRNA - 09/12/2020 1:04 PM STATE APPELLATE CLERK Hayley Johnston APRN-CRNA 09/12/2020 1:04 PM Endotracheal Tube Placement: Patient Location: OR. Intubation Event Date/Time: 09/12/2020 12:21 PM Procedure: intubation ([id number]). Procedure Section: Sedation: under general anesthesia. Indications [...] RBC UNIT(S), 1 Units (09/12/2020 2:17 AM STATE APPELLATE CLERK) Only the most recent of2 resultswithin the time period is included. [facility] Unit Description N/A [facility] BLOOD BANK LAB Blood Bank BLOOD SPECIMEN / Unknown 09/10/2020 11:30 AM STATE APPELLATE CLERK Sergio Vela DO LAB - BLOOD BANK ORD ERABLES Performing Organization Address [facility]/ZIP Co de Phone Number [facility] BLOOD BANK LAB [address] [place] [address], [facility] [phone] * PHOSPHORUS BLOOD (09/12/2020 1:58 AM STATE APPELLATE CLERK) Only the most recent of2 resultswithin the time period is included. [facility] Phosphorus 3.7 2.3 - 4.7 mg/dL 09/12/2020 2:47 AM STATE APPELLATE CLERK [facility] Blood BLOOD SPECIMEN / Unknown Venipuncture / Unknown 09/12/2020 1:58 AM STATE APPELLATE CLERK 09/12/2020 2:26 AM STATE APPELLATE CLERK Tomer Nolasco MD LAB - CHEMISTRY JANETTE SANDHU [facility] [address] [place] [address] * (ABNORMAL) HEMOGLOBIN A1C (09/11/2020 8:14 AM STATE APPELLATE CLERK) [facility] Hemoglobin A1c 7.1(H) 4.4 - 6.3 % 09/11/2020 10:41 AM [facility] Estimated Average Glucose 157 mg/dL 09/11/2020 10:41 AM [facility] Comment: HbA1c Interpretation: Treatment target values recommended by ADA and other clinical organizations should be used to evaluate metabolic control in patients. Treatment Target Values: Normal : < 5.7% Pre-diabetes: 5.7-6.4% Diabetes: Equal to or greater than 6.5% Reference: [place] Diabetes [employer] Standards of Care in Diabetes -2014 In patients 70 years and older consider HbA1c target range of 7.0-7.5% Reference: Diabetes Mellitus in Older People: Position Statement on behalf of the International Association of Gerontology and Geriatrics (IAGG), the Diabetes Working Libertarian for Older People (EDWPOP), and the International Task Force of Experts in Diabetes. Mikhail Godinez, et al. J [place] [employer] Association. 2012 Test results diagnostic of diabetes should be repeated for confirmation. The Sebia Capillary 2 assay for the measurement of HbA1c is a National Glycohemoglobin Standardization Program (NGSP)certified method. Blood BLOOD SPECIMEN / Unknown Venipuncture / Unknown 09/11/2020 8:14 AM STATE APPELLATE CLERK 09/11/2020 8:18 AM STATE APPELLATE CLERK Narrative [facility] - 09/11/2020 10:41 AM STATE APPELLATE CLERK note^<nlbl:demographic_changed> Margarita Plata APRN-MICROBIOLOGICAL ANALYST LAB - CHEMISTRY ORDERABLES Performing Organization Address City/State/[facility] Co de Phone Number [address] [phone], [facility] [phone] * XR CHEST 1VW PORTABLE (09/11/2020 4:37 AM STATE APPELLATE CLERK) Only the most recent of2 resultswithin the time period is included. Anatomical Region Laterality Modality Chest Radiographic Emilee ging 09/11/2020 8:47 AM STATE APPELLATE CLERK Impressions 09/11/2020 2:46 PM STATE APPELLATE CLERK FINDINGS/IMPRESSION: There is a small left pleural effusion with associated compressive atelectasis. There is mild bilateral lower lung field opacities, likely representing atelectasis and/or pneumonia. There is no pneumothorax. The cardiomediastinal silhouette is normal. The visible bony thorax is intact. Dictated by Alec Dumas MD (residential appraiser). I, Dr. HOPE KIM have personally reviewed and interpreted this examination/study. This report was electronically signed by HOPE KIM on 09/11/2020 2:46 PM . Narrative 09/11/2020 2:46 PM STATE APPELLATE CLERK EXAMINATION: XR CHEST 1VW PORTABLE HISTORY: S41.111A: [...] thorax isintact. Dictated by Alec Dumas MD (residential appraiser). I, Dr. HOPE KIM have personally reviewed and interpreted this examination/study. This report was electronically signed by HOPE KIM on 12:46 PM . Sergio Gretchen Mirian DO DIAGNOSTIC IMAGING O RDERABLES * SARS-COV-2 (COVID-19)+INFLU A+B PCR RAPID (09/10/2020 6:30 PM STATE APPELLATE CLERK) COVID-19 PCR Not detected Not detected 09/10/19 9:39 PM STATE APPELLATE CLERK [facility] Influenza A Rapid KIAH Not Detected Not Detected 09/10/2020 9:39 PM STATE APPELLATE CLERK [facility] Influenza B KIAH Rapid Not Detected Not Detected 09/10/2020 9:39 PM STATE APPELLATE CLERK [facility] Microbiology SPECIMEN FROM NASOPHARYNGEAL STRUCTURE / Unknown Collection / Unknown 09/10/2020 6:30 PM STATE APPELLATE CLERK 09/10/2020 9:11 PM STATE APPELLATE CLERK Narrative [facility] - 09/10/2020 9:39 PM STATE APPELLATE CLERK Influenza assay performed by [employer]. [...] acid amplification assay performance was validated by [facility]. This test has been authorized by [...] Vela DO LAB - MICROBIOLOGY O RDERABLES [address] [address], [facility] [phone] * 4 Units (09/10/2020 1:45 PM STATE APPELLATE CLERK) Unit Description LR Whole BLood [facility] BLOOD BANK LAB Unit ABO O [facility] B[facility]OD [facility] LAB Unit Rh POS [facility] B[facility]OD [facility] Product Number E0033 [facility] B LOOD BANK LAB Unit Donor # [id number] [facility] B[facility]OD [facility] Unit Status released [facility] BLOO D BANK LAB Product Code [id number] [facility] BLO OD BANK LAB Blood Type Barcode 5100 [facility] Expiration Date [id number] S BLOOD BANK LAB Unit Description LR Whole BLood [facility] BLOOD [facility] LAB Unit ABO O [facility] BLOOD [facility] Unit Rh POS [facility] BLOOD [facility] Product Number E0033 [facility] B LOOD B[facility] LAB Unit Donor # [id number] [facility]LO[facility] Unit Status released [facility] BLOO D BANK LAB Product Code [id number] [facility] BLO OD BANK LAB Blood Type Barcode 5100 [facility] BLOOD [facility] LAB Expiration Date [id number] S BLOOD BANK LAB Unit Description LR Whole BLood [facility] BLOOD [facility] LAB Unit ABO O [facility] BLOOD [facility] Unit Rh POS [facility] BLOOD [facility] Product Number E0033 [facility] B LOOD [facility] Unit Donor # [id number] [facility] Unit Status released [facility] BLOO D BANK LAB Product Code [id number] [facility] BLO OD BANK LAB Blood Type Barcode 5100 [facility] BLOOD [facility] LAB Expiration Date [id number] S BLOOD BANK LAB Unit Description LR Whole BLood [facility] BLOOD [facility] LAB Unit ABO O [facility] BLOOD [facility] Unit POS [facility] BLOOD [facility] Product Number E0033 [facility] B LOOD BANK LAB Unit Donor # [id number] [facility] BLOOD [facility] Unit Status released [facility] BLOO D BANK LAB Product Code [id number] [facility] BLO OD BANK LAB Blood Type Barcode 5100 [facility] BLOOD [facility] LAB Expiration Date [id number] S BLOOD BANK LAB Unit Description LR Whole BLood [facility] BLOOD [facility] LAB Unit ABO O [facility] BLOOD [facility] Unit POS [facility] BLOOD [facility] Product Number E0033 [facility] B LOOD BANK LAB Unit Donor # [id number] [facility] B[facility]OD [facility] Unit Status transfused [facility] BLO OD BANK LAB Product Code [id number] [facility] BLO OD BANK LAB Blood Type Barcode 5100 [facility] BLOOD [facility] LAB Expiration Date [id number] S BLOOD BANK LAB Unit Description LR Whole BLood [facility] BLOOD [facility] LAB Unit ABO O [facility] BLOOD [facility] LAB Unit POS [facility] BLOOD [facility] Product Number E0033 [facility] B LOOD BANK LAB Unit Donor # [id number] [facility] BLOOD [facility] LAB Unit Status released [facility] BLOO D BANK LAB Product Code [id number] [facility] BLO OD BANK LAB Blood Type Barcode 5100 [facility] BLOOD [facility] LAB Expiration Date [id number] S BLOOD BANK LAB Unit Description LR Whole BLood [facility] BLOOD B[facility] LAB Unit ABO O [facility] BLOOD [facility] LAB Unit Rh POS [facility] BLOOD [facility] LAB Product Number E0033 [facility] B LOOD BANK LAB Unit Donor # [id number] [facility] BLOOD [facility] Unit Status released [facility] BLOO D BANK LAB Product Code [id number] [facility] BLO OD BANK LAB Blood Type Barcode 5100 [facility] BLOOD [facility] LAB Expiration Date [id number] [facility] BLOOD B[facility] LAB Unit Description LR Whole BLood [facility] Unit ABO O [facility] Unit POS [facility] Product Number [id number] [facility] Unit Donor # [id number] [facility] Unit Status released [facility] D [facility] Product Code [id number] [facility] OD [facility]ANK LAB Blood Type Barcode 5100 [facility] Expiration Date [phone] [facility] B[facility]OD [facility] LAB Blood Bank BLOOD SPECIMEN / Unknown 09/10/2020 11:30 AM STATE APPELLATE CLERK Justin Tafoya MD LAB - BLOOD BANK OR DERABLES [facility] [address] [place] [address], [facility] [phone] * PREPARE FFP UNIT(S), 6 Units (09/10/2020 1:07 PM STATE APPELLATE CLERK) Unit Description Thawed Plasma 5D [facility]OD [facility] Unit ABO AB [facility] Unit POS [facility] Product Number [id number] [facility] Unit Donor # [id number] [facility] Unit Status released [facility] Product Code [id number] [facility] OD [facility]ANK LAB Blood Type Barcode 8400 [facility] Expiration Date [phone] [facility] B[facility]OD [facility] Unit Description Thawed Plasma 5D [facility] Unit ABO AB [facility] Unit POS [facility] Product Number E5550 [facility]OD [facility] Unit Donor # [id number] [facility] Unit Status released [facility] Product Code [id number] [facility] OD [facility] Blood Type Barcode 8400 [facility] Expiration Date [phone] [facility] BLOOD [facility] LAB Unit Description Thawed Plasma 5D [facility] Unit ABO AB [facility] Unit POS [facility] Product Number E2121 [facility] B LOOD [facility] LAB Unit Donor # [id number] [facility] Unit Status released [facility] Product Code [id number] [facility] BLO OD [facility]ANK LAB Blood Type Barcode 8400 [facility] Expiration Date [phone] S BLOOD BANK LAB Unit Description Thawed Plasma 5D [facility]OD [facility] Unit ABO AB [facility] Unit Rh POS [facility] Product Number E2684 [facility]OD [facility] Unit Donor # [id number] [facility] Unit Status released [facility] Product Code [id number] [facility] BLO OD BANK LAB Blood Type Barcode 8400 [facility] Expiration Date [phone] [facility] BLOOD BANK LAB Blood Bank BLOOD SPECIMEN / Unknown 09/10/2020 11:30 AM STATE APPELLATE CLERK Sergio Vela DO LAB - BLOOD BANK ORD ERABLES [facility] [address] [place] [address], [place] [phone] * PREPARE PLATELET PHERESIS UNIT(S), 1 Units (09/10/2020 1:04 PM STATE APPELLATE CLERK) Unit Description LR PLT Phere IRR [facility] BLOOD [facility] LAB Unit ABO O [facility] Unit Rh POS [facility] Product Number P11 [facility]OD [facility] Unit Donor # [id number] [facility] Unit Status released [facility] BL[facility] D [facility]ANK LAB Product Code [id number] [facility] BLO OD BANK LAB Blood Type Barcode 5100 [facility] Expiration Date [phone] [facility] BLOOD BANK LAB Blood Bank BLOOD SPECIMEN / Unknown 09/10/2020 11:30 AM STATE APPELLATE CLERK Sergio Vela DO LAB - BLOOD BANK ORD ERABLES [facility] [address] [place] [address], [place] [phone] * ETT LINE PERFORMABLE (09/10/2020 11:42 AM STATE APPELLATE CLERK) Narrative Angela Duran MD - 09/10/2020 11:42 AM STATE APPELLATE CLERK Angela Duran MD 09/10/2020 11:42 AM Endotracheal Tube Placement: Patient Location: OR. Intubation Event Date/Time: 09/10/2020 11:22 AM Procedure: intubation (81359). Procedure Section: Sedation: under general anesthesia. Indications [...] RIGHT 2VW OR MORE (09/10/2020 11:24 AM STATE APPELLATE CLERK) Anatomical Region Laterality Modality Upper Extremity Radiographic Emilee ging 09/10/2020 12:1 3 PM STATE APPELLATE CLERK Impressions 09/10/2020 3:29 PM STATE APPELLATE CLERK FINDINGS/IMPRESSION: There is a proximal arm tourniquet. A soft tissue defect with subjacent soft tissue swelling and subcutaneous gas is seen in the mid-distal arm. The humerus appears intact. No large embedded radiopaque foreign body is identified. Medial and lateral distal humeral epicondylar enthesopathy. Report dictated by Ke Rodríguez MD (residential appraiser). I, Dr. EMIL ALLEN have personally reviewed and interpreted this examination/study. This report was electronically signed by EMIL ALLEN on 09/10/2020 3:29 PM . Narrative 09/10/2020 3:29 PM STATE APPELLATE CLERK EXAMINATION: XR HUMERUS RIGHT 2VW OR MORE [...] enthesopathy. Report dictated by Ke Rodríguez MD (residential appraiser). I, Dr. EMIL ALLEN have personally reviewed and interpreted this examination/study. This report was electronically signed by EMIL ALLEN on 09/10/2020 3:29 PM . Sergio Vela DO DIAGNOSTIC IMAGING O RDERABLES * PTT [facility] (09/10/2020 11:23 AM STATE APPELLATE CLERK) APTT 25.7 23.0 - 38.4 Seconds 09/10/2020 11:39 AM STATE APPELLATE CLERK [facility] Comment:Suggested therapeuti c range for full dose I.V. unfractionated heparin therapy for venous thromboembolism is 71 to 109 seconds. Blood BLOOD SPECIMEN / Unknown Venipuncture / Unknown 09/10/2020 11:23 AM STATE APPELLATE CLERK 09/10/2020 11:31 AM STATE APPELLATE CLERK Sergio Vela DO LAB - COAGULATION OR DERABLES [facility] [address] [place] [address], [facility] [phone] * TYPE + SCREEN PANEL (09/10/2020 11:23 AM STATE APPELLATE CLERK) Antibody Screen NEG 12:16 PM STATE APPELLATE CLERK [facility] B[facility]OD [facility] LAB ABO Rh O POS 09/10/2020 12:16 PM STATE APPELLATE CLERK [facility] Blood Bank BLOOD SPECIMEN / Unknown Venipuncture / Unknown 09/10/2020 11:23 AM STATE APPELLATE CLERK 09/10/2020 11:30 AM STATE APPELLATE CLERK Sergio Vela DO LAB - BLOOD BANK ORD SARI Performing Organization Address [facility]/ZIP Co de Phone Number [facility] [address] [place] [address], [facility] [phone] * (ABNORMAL) ALCOHOL ETHYL BLOOD (09/10/2020 11:23 AM STATE APPELLATE CLERK) Ethanol (mg/dL) 38(H) None Detected mg/dL 09/10/2020 12:07 PM STATE APPELLATE CLERK [facility] Comment:Ethanol in the patie nt's blood will contribute to the osmolar gap. Ethanol's contribution to the osmolar gap can be estimated by dividing the concentration of ethanol in mg/dL by 4.6. Blood BLOOD SPECIMEN / Unknown Venipuncture / Unknown 09/10/2020 11:23 AM STATE APPELLATE CLERK 09/10/2020 11:28 AM STATE APPELLATE CLERK Sergio Wardper LAB - CHEMISTRY JANETTE SANDHU Performing Organization Address [facility]/ZIP Co de Phone Number [facility] [address] [place] [address], [facility] [phone] * CARDIAC EKG ORDER (02/09/2018 1:53 PM [...] with reconstitution. Dictated by Sondra Dobbins MD (residential appraiser). I, Dr. KIM HAMILTON M.D. have personally [...] with reconstitution. Dictated by Sondra Dobbins MD (residential appraiser). I, Dr. KIM HAMILTON M.D. have personally reviewed and interpreted this examination/study. This report was electronically signed by KIM HAMILTON M.D. on 02/06/2018 4:38 PM . Nava Morgan MD CT ORDERABLES * (ABNORMAL) CREATININE BLOOD - POCT (IP) [facility] (02/06/2018 7:43 AM CDT) Creatinine POCT 1.51(A) 0.3 - 1.3 mg/dL [facility] POCT TESTING eGFR POCT 60 60 ml/min [facility] POCT TESTING Blood BLOOD SPECIMEN / Unknown 02/06/2018 7:43 AM CDT Nava Morgan MD LAB - POINT OF CARE ORDERABLES [facility] POCT TESTING [address] [phone] Care Teams Aircraft Engine Specialist Relationship Specialty Start Date End Date Unknown, Provider PCP - General 01/01/18
--- OUTSIDE RECORDS SUMMARY | 2024-09-13 11:10 | XMS_ITS | Encounter Summary ---
Author Organization [facility] Address [address] [facility] [place] [address] Phone Care Team Providers Care Dental Laboratory Supervisor Name Role Phone Cecile Terrell APRN, CNP Primary Care Provider Reason for Referral * PT/OT/ST (Routine) - Closed Specialty Diagnoses / Procedures Referred By Contdave t Referred To Contact Occupational Therapy Diagnoses Wrist drop, right wrist Cecile Terrell APRN, CNP [address] [place] [address] Phone: tel: fax: [facility] at [address] [address] Phone: tel: fax: Referral ID Status Reason Start Date Expiration Date Visits Re quested Visits Authorized [id number] Closed 03/11/2024 50 3 Scheduling Instructions Encounter Details Date Type Department Care Team (Latest Contact Info) Description 03/11/2024 Transcribe Orders [facility] [address] [place] [address] Cecile Terrell APRN, CNP [address] [place] [address] Wrist drop, right wrist (Primary [...] Primary documented in this encounter Care Teams Dental Laboratory Supervisor Relationship Specialty Start Date End Date Cecile Terrell APRN, SHOT CORE DRILL OPERATOR [address] [place] [address] PCP - General Advanced Practice Nurse 04/22/22 documented as of this encounter
--- OUTSIDE RECORDS SUMMARY | 2024-09-13 11:10 | XMS_ITS | Referral Summary ---
Author Organization [facility] Address [address] [place] [address] Care Team Providers Care Coal Miner Name Role Phone Cecile Terrell NP Primary Care Provider [phone] Allergies No known active allergies Medications albuterol [...] (07/24/2020): Added automatically from request for surgery [id number] Positive colorectal cancer s creening using DNA-based stool test 07/24/2020 Overview (07/24/2020): Added automatically from request for surgery [id number] PVD (peripheral vascular disease) (CMS/HCC) 02/2020 Assessment [...] on file Legal Sex Male 9:22 AM LINK KNITTING MACHINE OPERATOR Gender Identity Not on file Sexual Orientation Not on file Last Filed Vital Signs Vital Sign Reading Time Taken Comments Blood Pressure 114/70 03/13/2021 1:17 PM CDT Pulse 66 03/13/2021 1:17 PM CDT Temperature 36 C (96.8 F) 08/22/2020 2:57 PM LINK KNITTING MACHINE OPERATOR Respiratory Rate 14 03/13/2021 1:17 PM CDT Oxygen Saturation 100% 08/22/2020 2:57 PM LINK KNITTING MACHINE OPERATOR Inhaled Oxygen Concentration - - Weight [...] 11:45 AM CDT COLONOSCOPY 08/22/2020 1:47 PM LINK KNITTING MACHINE OPERATOR CTA ABDOMINAL AORTA AND BILATERAL ILIOFEMORAL [...] Result DALLIN WILCOX ([place]) 1 [facility] Department of Laboratories [place], [place] [id number] * (ABNORMAL) Hemoglobin A1c (03/27/2022 12:52 PM [...] and children were not included. (Diabetes Care 31:3677-6063, 2008). The eAG is not equivalent to a fasting glucose. Blood 03/27/2022 12:5 2 PM CDT 03/27/2022 3:20 PM CDT Jt Banegas MD LAB BLOOD ORDERABL ES Final Result DALLIN WILCOX (ETTERS) 1 [facility] [place] [address] * Lipid panel (10/31/2021 11:45 AM CDT) [...] LAB BLOOD ORDERABL ES Final Result DALLIN [facility] SHANNON 1 [facility] Department [place] [address] * COLONOSCOPY (08/22/2020 1:47 PM LINK KNITTING MACHINE OPERATOR) Anatomical Region Laterality Modality Other Narrative Procedure Note Ignacio Landers MD - 08/22/2020 1:47 PM CST [facility] Patient Name: Philip Barron Procedure Date: 08/22/2020 1:47 PM Date of : 1955 Admit Type: Outpatient Age: 65 Gender: Male Attending MD: Ignacio Landers M.D. Room: [facility] ENDOSCOPY ROOM 1 Note Status: Finalized [...] passed under direct vision.The Pediatric Colonoscope [id number] was introduced through the anus and advanced [...] 1:47 PM Procedure Code(s): --- Professional --- 78308, Colonoscopy, flexible; with biopsy, single or multiple Diagnosis Code(s): --- Professional --- Z12.11, Encounter for screening for malignant neoplasm of colon K64.8, Other hemorrhoids D12.5, Benign neoplasm of sigmoid colon K57.30, Diverticulosis of large intestine without perforation orabscess without bleeding CPT copyright 2017 [employer]. All rights reserved. The codes documented in this report are preliminary and upon inside wireman reviewmay be revised to meet current compliance requirements. Recognized by the [place] [employer] for promoting quality [...] Most Recently Relevant to Health Maintenance Insurance [facility] MEDICARE O [facility] MEDICARE IDPA MANAGED MEDICARE GENERIC RISK OTHER [facility] HMO [facility] Advance Directives For more information, please contact: [phone] * Full Code (Latest Code Status on File) Date Activated Date Inactivated Comments 08/22/2020 1:38 PM 08/22/2020 7:14 PM * Full Code Date Activated Date Inactivated Comments 08/22/2020 1:38 PM 08/22/2020 1:38 PM Care Teams Coal Miner Relationship Specialty Start Date End Date Cecile Terrell NP [address] [address] PCP - General Family Medicine 03/13/21
--- OUTSIDE RECORDS SUMMARY | 2024-09-13 11:10 | XMS_ITS | Referral Summary ---
Author Organization [facility] Address [address] [place] [address] Care Team Providers Care Manager Strategy & Account Name Role Phone Unknown, Provider Primary Care Provider Unavaila ble Source Comments [facility],non-owned Affiliates and Associated Physician Practices is amultiple site organization consisting of ambulatory clinics and hospital sitesin [place], [place], [place] and [place]. This disclosure is being madepursuant to the Care Everywhere program and may not contain all information available regarding this patient. 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 [...] file Gender Identity Male 09/11/2020 8:16 AM [employer] Sexual Orientation Not on file Last Filed Vital Signs Vital Sign Reading Time Taken Comments Blood Pressure 143/89 08/19/2023 3:24 PM [employer] Pulse 71 08/19/2023 3:24 PM [employer] Temperature 36.6 C (97.9 F) 08/19/2023 3:24 PM [employer] Respiratory Rate 18 08/19/2023 3:24 PM [employer] Oxygen Saturation 98% 08/19/2023 3:24 PM [employer] Inhaled Oxygen Concentration - - Weight 110.5 kg (243 lb 9.6 oz) 08/19/2023 3:24 PM [employer] Height 185.4 cm (6' 1 ) 08/19/2023 3:24 PM [employer] Body Mass Index 32.14 08/19/2023 3:24 PM [employer] Functional Status Functional Status Response Date of [...] Interventions: PT Medical Devices Implanted Type Area Mis Manager Device Identifier Shelf Expiration Date Model / Serial / Lot Graft Tissue Avance Nrv 30mm Algrf 4-5mm Implanted:Qty: 1 on 09/12/2020 by Per Glez MD at [facility] Right: Arm [employer] 05/27/2023 [id number] / / [id number] Description:CC Procedures Procedure Name Priority Date/Time Associated Diagnosis Comments BASIC METABOLIC PANEL (CALCIUM TOTAL) Routine 12/16/2022 8:35 AM CDT 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) BUN 10 7 - 26 mg/dL 12/16/2022 9:29 AM [facility] Creatinine 0.94 0.71 - 1.16 mg/dL 12/16/2022 9:29 AM [facility] Sodium 143 136 - 145 mmol/L [...] 12/16/2022 8:35 AM T 12/16/2022 9:[address] [facility] Fanta Grubbs PA-C LAB - CHEMISTRY O RDERABLES [facility] [address] [place] [address], [facility] [phone] * (ABNORMAL) HEMOGLOBIN A1C (09/11/2020 8:14 AM [facility]) Hemoglobin A1c 7.1(H) 4.4 - 6.3 % 09/11/2020 10:41 AM [facility] Estimated Average Glucose 157 mg/dL 09/11/2020 10:41 AM [facility] Comment: HbA1c Interpretation: Treatment target values recommended by ADA and other clinical organizations should be used to evaluate metabolic control in patients. Treatment Target Values: Normal : < 5.7% Pre-diabetes: 5.7-6.4% Diabetes: Equal to or greater than 6.5% Reference: [place] [employer] Standards of Care in Diabetes -2014 In patients 70 years and older consider HbA1c target range of 7.0-7.5% Reference: Diabetes Mellitus in Older People: Position Statement on behalf of the International Association of Gerontology and Geriatrics (IAGG), the Diabetes Working Republican for Older People (EDWPOP), and the International Task Force of Experts in Diabetes. Mikhail Godinez, et al. J [place] [employer] Association. 2012 Test results diagnostic of diabetes should be repeated for confirmation. The Sebia Capillary 2 assay for the measurement of HbA1c is a National Glycohemoglobin Standardization Program (NGSP)certified method. Blood BLOOD SPECIMEN / Unknown Venipuncture / Unknown 09/11/2020 8:14 AM FISH CLE[employer]ER 09/11/2020 8:18 AM FISH CLE[employer]ER Narrative [facility] - 09/11/2020 10:41 AM [employer]ER note^<nlbl:[email or web address]_changed> Margarita Plata APRN-APPRAISER [employer] TAX LAB - CHEMISTRY ORDERABLES [facility] [address] [place] [address], [facility] [phone] from Last 3 Months or Most Recently Relevant to Health Maintenance Insurance Payer Benefit Plan / Group Subscriber ID Effective Dates Phone Address Type [facility] [place] [facility] [employer] [place] [id number] 02/25/2023-Pres ent [address] [place] [address] Medicaid Managed Care [facility] HMO POS MEDICARE ADV [id number] 07/28/2022-Pres ent [employer] [address] [address] [place] [address] Medicare-Man aged Care MEDICAID - OUT OF STATE [place] [id number] Effective for all dates [address] [address] [place] [address] Medicaid MEDICAID - OUT OF STATE [place] [id number] Effective for all dates [address] [address] [place] [address] Medicaid MEDICARE WPS MEDICARE PART B [id number] 06/27/2020-Pre sent [address] [address] [place] [address] Medicare MEDICAID - OUT OF STATE [place] [id number] Effective for all dates [address] [address] [place] [address] Medicaid MEDICARE WPS MEDICARE PART B [id number] 06/27/2020-Pre sent [address] [address] [place] [address] Medicare MEDICAID - OUT OF STATE [place] [id number] Effective for all dates [address] [address] [place] [address] Medicaid MEDICAID - OUT OF STATE [place] [id number] Effective for all dates [address] [address] [place] [address] Medicaid MEDICAID - OUT OF STATE [place] [id number] Effective for all dates [address] [address] [place] [address] Medicaid [employer] HMO POS MEDICARE ADV [id number] 07/28/2022-Pres ent [employer] [address] [address] [place] [address] Medicare-Man aged Care MEDICAID - OUT OF STATE [place] [id number] Effective for all dates [address] [address] [place] [address] Medicaid MEDICARE WPS MEDICARE PART B [id number] 06/27/2020-Pre sent [address] [address] [place] [address] Medicare [employer] HMO POS MEDICARE ADV [id number] 07/28/2021-Pres ent [employer] [address] [address] [place] [address] Medicare-Man aged Care MEDICAID - OUT OF STATE MEDICAID [facility] PUBLIC AID [id number] Effective for all dates [address] [address] [place] [address] Medicaid MEDICARE WPS MEDICARE PART B [id number] 06/27/2020-Pre sent [address] [address] [place] [address] Medicare [employer] HMO POS MEDICARE ADV [id number] 07/28/2021-Pres ent [employer] [address] [address] [place] [address] Medicare-Man aged Care MEDICAID - OUT OF STATE MED[place] PUBLIC [place] [id number] Effective for all dates [address] [address] [place] [address] Medicaid MEDICARE WPS MEDICARE PART B [id number] 06/27/2020-Pre sent [address] [address] [place] [address] Medicare [employer] HMO POS MEDICARE ADV [id number] 07/28/2021-Pres ent [employer] [address] [address] [place] [address] Medicare-Man aged Care MEDICAID - OUT OF STATE [place] [id number] Effective for all dates [address] [address] [place] [address] Medicaid MEDICARE WPS MEDICARE PART B [id number] 06/27/2020-Pre sent [address] [address] [place] [address] Medicare [employer] HMO POS MEDICARE ADV [id number] 07/28/2021-Pres ent [employer] [address] [address] [place] [address] Medicare-Man aged Care MEDICAID - OUT OF STATE [place] [id number] Effective for all dates [address] [address] [place] [address] Medicaid MEDICARE WPS MEDICARE PART B [id number] 06/27/2020-Pre sent [address] [address] [place] [address] Medicare [employer] HMO POS MEDICARE ADV [id number] 07/28/2021-Pres ent [employer] [address] [address] [place] [address] Medicare-Man aged Care MEDICAID - OUT OF STATE MEDICAID [facility] PUBLIC AID [id number] Effective for all dates [address] [address] [place] [address] Medicaid MEDICARE WPS MEDICARE PART B [id number] 06/27/2020-Pre sent [address] [address] [place] [address] Medicare [employer] HMO POS MEDICARE ADV [id number] 07/28/2021-Pres ent [employer] [address] [address] [place] [address] Medicare-Man aged Care MEDICAID - OUT OF STATE MED[place] [id number] Effective for all dates [address] [address] [place] [address] Medicaid MEDICARE WPS MEDICARE PART B [id number] 06/27/2020-Pre sent [address] [address] [place] [address] Medicare [employer] HMO POS MEDICARE ADV [id number] 07/28/2021-Pres ent [employer] [address] [address] [place] [address] Medicare-Man aged Care MEDICAID - OUT OF STATE MED[place] [id number] Effective for all dates [address] [address] [place] [address] Medicaid MEDICARE WPS MEDICARE PART B [id number] 06/27/2020-Pre sent [address] [address] [place] [address] Medicare [employer] HMO POS MEDICARE ADV [id number] 07/28/2021-Pres ent [employer] [address] [address] [place] [address] Medicare-Man aged Care MEDICAID - OUT OF STATE MED[place] [id number] Effective for all dates [address] [address] [place] [address] Medicaid [employer] HMO POS MEDICARE ADV [id number] 07/28/2022-Pres ent [employer] [address] [address] [place] [address] Medicare-Man aged Care [employer] HMO POS MEDICARE ADV [id number] 07/28/2021-Pres ent [employer] [address] [address] [place] [address] Medicare-Man aged Care MEDICAID - OUT OF STATE [place] [id number] Effective for all dates [address] [address] [place] [address] Medicaid [employer] HMO POS MEDICARE ADV [id number] 07/28/2021-Pres ent [employer] [address] [address] [place] [address] Medicare-Man aged Care MEDICAID - OUT OF STATE [place] [id number] Effective for all dates [address] [address] [place] [address] Medicaid [employer] HMO POS MEDICARE ADV [id number] 07/28/2021-Pres ent [employer] [address] [address] [place] [address] Medicare-Man aged Care MEDICAID - OUT OF STATE [place] [id number] Effective for all dates [address] [address] [place] [address] Medicaid [employer] HMO POS MEDICARE ADV [id number] 07/28/2021-Pres ent [employer] [address] [address] [place] [address] Medicare-Man aged Care MEDICAID - OUT OF STATE MEDICAID [facility] PUBLIC AID [id number] Effective for all dates [id number] [place] [address] Medicaid [employer] HMO POS MEDICARE ADV [id number] 07/28/2021-Pres ent [employer] [address] [address] [place] [address] Medicare-Man aged Care MEDICAID - OUT OF STATE [place] [id number] Effective for all dates [address] [address] [place] [address] Medicaid [employer] HMO POS MEDICARE ADV [id number] 07/28/2021-Pres ent [employer] [address] [address] [place] [address] Medicare-Man aged Care MEDICAID - OUT OF STATE MEDICAID [facility] PUBLIC AID [id number] Effective for all dates [address] [address] [place] [address] Medicaid [employer] HMO POS MEDICARE ADV [id number] 07/28/2021-Pres ent [employer] [address] [address] [place] [address] Medicare-Man aged Care MEDICAID - OUT OF STATE MEDICAID [facility] PUBLIC AID [id number] Effective for all dates [address] [address] [place] [address] Medicaid [employer] HMO POS MEDICARE ADV [id number] 07/28/2021-Pres ent [employer] [address] [address] [place] [address] Medicare-Man aged Care MEDICAID - OUT OF STATE MEDICAID [facility] PUBLIC AID [id number] Effective for all dates [address] [address] [place] [address] Medicaid [employer] HMO POS MEDICARE ADV [id number] 07/28/2021-Pres ent [employer] [address] [address] [place] [address] Medicare-Man aged Care MEDICAID - OUT OF STATE MED[place]ID [place] PUBLIC A[place] [id number] Effective for all dates [address] [address] [place] [address] Medicaid [employer] HMO POS MEDICARE ADV [id number] 07/28/2021-Pres ent [employer] [address] [address] [place] [address] Medicare-Man aged Care MEDICAID - OUT OF STATE MEDICAID [facility] PUBLIC AID [id number] Effective for all dates [address] [address] [place] [address] Medicaid [employer] HMO POS MEDICARE ADV [id number] 07/28/2021-Pres ent [employer] [address] [address] [place] [address] Medicare-Man aged Care MEDICAID - OUT OF STATE MEDICAID [facility] PUBLIC AID [id number] Effective for all dates [address] [address] [place] [address] Medicaid [employer] HMO POS MEDICARE ADV [id number] 07/28/2021-Pres ent [employer] [address] [address] [place] [address] Medicare-Man aged Care MEDICAID - OUT OF STATE MEDICAID [facility] PUBLIC AID [id number] Effective for all dates [address] [address] [place] [address] Medicaid [employer] HMO POS MEDICARE ADV [id number] 07/28/2021-Pres ent [employer] [address] [address] [place] [address] Medicare-Man aged Care MEDICAID - OUT OF [place] [id number] Effective for all dates [address] [address] [place] [address] Medicaid [employer] HMO POS MEDICARE ADV [id number] 07/28/2021-Pres ent [employer] [address] [address] [place] [address] Medicare-Man aged Care MEDICAID - OUT OF [place] MED[place]ID [place] [id number] Effective for all dates [address] [address] [place] [address] Medicaid [employer] HMO POS MEDICARE ADV [id number] 07/28/2021-Pres ent [employer] [address] [address] [place] [address] Medicare-Man aged Care MEDICAID - OUT OF STATE MED[place]ID [place] [id number] Effective for all dates [address] [address] [place] [address] Medicaid [employer] WE[employer] HMO POS MEDICARE ADV [id number] 07/28/2021-Pres ent [employer] [address] [address] [place] [address] Medicare-Man aged Care MEDICAID - OUT OF STATE MEDICAID [place] [id number] Effective for all dates [address] [address] [place] [address] Medicaid [employer] WELL[employer] HMO POS MEDICARE ADV [id number] 07/28/2021-Pres ent [employer] [address] [address] [place] [address] Medicare-Man aged Care MEDICAID - OUT OF STATE MEDICAID [place] [id number] Effective for all dates [address] [address] [place] [address] Medicaid MEDICARE WPS MEDICARE PART B [id number] 06/27/2020-Pre sent [address] [address] [place] [address] Medicare MEDICAID - OUT OF STATE MED[place]ID [place] [id number] Effective for all dates [address] [address] [place] [address] Medicaid MEDICARE WPS MEDICARE PART B [id number] 06/27/2020-Pre sent [address] [address] [place] [address] Medicare MEDICAID - OUT OF STATE MED[place]ID [place] [id number] Effective for all dates [address] [address] [place] [address] Medicaid MEDICARE WPS MEDICARE PART B [id number] 06/27/2020-Pre sent [address] [address] [place] [address] Medicare MEDICAID - OUT OF STATE MED[place]ID [place] [id number] Effective for all dates [address] [address] [place] [address] Medicaid MEDICARE WPS MEDICARE PART B [id number] 06/27/2020-Pre sent [address] [address] [place] [address] Medicare MEDICAID - OUT OF STATE MED[place] [id number] Effective for all dates [address] [address] [place] [address] Medicaid MEDICARE WPS MEDICARE PART B [id number] 06/27/2020-Pre sent [address] [address] [place] [address] Medicare MEDICAID - OUT OF STATE MEDICAID [facility] PUBLIC AID [id number] Effective for all dates [address] [address] [place] [address] Medicaid MEDICARE WPS MEDICARE PART B [id number] 06/27/2020-Pre sent [address] [address] [place] [address] Medicare MEDICAID - OUT OF STATE MED[place] [id number] Effective for all dates [address] [address] [place] [address] Medicaid MEDICAID - OUT OF STATE MEDICAID [place] [id number] Effective for all dates [address] [address] [place] [address] Medicaid MEDICAID - OUT OF STATE MEDICAID [place] [id number] Effective for all dates [address] [address] [place] [address] Medicaid MEDICAID - OUT OF STATE MEDICAID [place] [id number] Effective for all dates [address] [address] [place] [address] Medicaid MEDICAID - [facility] MEDICAID - [place] [id number] Effective for all dates [address] [address] [place] [address] Medicaid MEDICAID - OUT OF [facility] MEDICAID - [place] [id number] Effective for all dates [address] [place] [address] Medicaid MEDICAID - OUT OF [facility] MEDICAID - [place] [id number] Effective for all dates [address] [address] [place] [address] Medicaid MEDICAID - OUT OF [facility] MEDICAID - [place] [id number] Effective for all dates [address] [address] [place] [address] Medicaid MEDICARE WPS MEDICARE PART B [id number] 06/27/2020-Pre sent [address] [address] [place] [address] Medicare MEDICARE WPS MEDICARE PART B [id number] 06/27/2020-Pre sent [address] [address] [place] [address] Medicare Advance Directives * Full Code (Latest Code Status on File) Date Activated Date Inactivated Comments 09/11/2020 11:47 PM 09/13/2020 3:46 PM * Full Code Date Activated Date Inactivated Comments 09/10/2020 11:11 AM 09/11/2020 7:25 PM Care Teams Manager Strategy & Account Relationship Specialty Start Date End Date Unknown, Provider PCP - General 01/01/18
--- OUTSIDE RECORDS SUMMARY | 2024-09-13 11:10 | XMS_ITS | Clinical Summary ---
Author Organization [facility] Address [address] [place] [address] Care Team Providers Care Auger Supervisor Name Role Phone Unknown, Provider Primary Care Provider Unavaila ble Source Comments [facility],non-owned Affiliates and Associated Physician Practices is amultiple site organization consisting of ambulatory clinics and hospital sitesin [place], [place], [place] and [place]. This disclosure is being madepursuant to the Care Everywhere program and may not contain all information available regarding this patient. 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 [...] file Gender Identity Male 09/11/2020 8:16 AM ASSOCIATE PROFESSOR OF COMMUNICATION Sexual Orientation Not on file Last Filed Vital Signs Vital Sign Reading Time Taken Comments Blood Pressure 143/89 08/19/2023 3:24 PM ASSOCIATE PROFESSOR OF COMMUNICATION Pulse 71 08/19/2023 3:24 PM ASSOCIATE PROFESSOR OF COMMUNICATION Temperature 36.6 C (97.9 F) 08/19/2023 3:24 PM ASSOCIATE PROFESSOR OF COMMUNICATION Respiratory Rate 18 08/19/2023 3:24 PM ASSOCIATE PROFESSOR OF COMMUNICATION Oxygen Saturation 98% 08/19/2023 3:24 PM ASSOCIATE PROFESSOR OF COMMUNICATION Inhaled Oxygen Concentration - - Weight 110.5 kg (243 lb 9.6 oz) 08/19/2023 3:24 PM ASSOCIATE PROFESSOR OF COMMUNICATION Height 185.4 cm (6' 1 ) 08/19/2023 3:24 PM ASSOCIATE PROFESSOR OF COMMUNICATION Body Mass Index 32.14 08/19/2023 3:24 PM ASSOCIATE PROFESSOR OF COMMUNICATION Plan of Treatment Health Maintenance Due Date [...] Interventions: PT Medical Devices Implanted Type Area Employee Placement Specialist Device Identifier Shelf Expiration Date Model / Serial / Lot Graft Tissue Avance Nrv 30mm Algrf 4-5mm Implanted:Qty: 1 on 09/12/2020 by Per Glez MD at [facility] Right: Arm [employer] 05/27/2023 [id number] / / [id number] Description:CC Procedures Procedure Name Priority Date/Time Associated Diagnosis Comments BASIC METABOLIC PANEL (CALCIUM TOTAL) Routine 12/16/2022 8:35 AM CDT 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 Potassium 4.4 3.5 - 4.5 mmol/L 12/16/2022 9:29 AM [facility] Chloride 105 98 - 107 mmol/L 12/16/2022 9:29 AM [facility] CO2 27 22 - 29 mmol/L 12/16/2022 9:29 AM [facility] Glucose 129(H) 70 - 115 mg/dL 12/16/2022 9:29 AM [facility] Calcium 9.3 8.4 - 10.2 mg/dL 12/16/2022 9:29 AM [facility] Anion Gap 15 8 - 18 12/16/2022 9:29 AM [facility] BUN/Creatinine Ratio 11 7 - 23 12/16/2022 9:29 AM [facility] Osmolality Calculated 297 270 - 300 mOsm/kg 12/16/2022 9:29 AM [facility] eGFR by CKD-EPI 90 >=90 mL/min/1.7 3 m2 12/16/2022 9:29 AM [facility] Blood BLOOD SPECIMEN / Unknown Venipuncture / Unknown 12/16/2022 8:35 AM T 12/16/2022 9:02 AM [facility] Fanta Grubbs PA-C LAB - CHEMISTRY O RDERABLES [facility] [address] [place] [address], [facility] [phone] * (ABNORMAL) HEMOGLOBIN A1C (09/11/2020 8:14 AM [facility]) Hemoglobin A1c 7.1(H) 4.4 - 6.3 % 09/11/2020 10:41 AM [facility] Estimated Average Glucose 157 mg/dL 09/11/2020 10:41 AM [facility] Comment: HbA1c Interpretation: Treatment target values recommended by ADA and other clinical organizations should be used to evaluate metabolic control in patients. Treatment Target Values: Normal : < 5.7% Pre-diabetes: 5.7-6.4% Diabetes: Equal to or greater than 6.5% Reference: [place] Diabetes Association Standards of Care in Diabetes -2014 In patients 70 years and older consider HbA1c target range of 7.0-7.5% Reference: Diabetes Mellitus in Older People: Position Statement on behalf of the International Association of Gerontology and Geriatrics (IAGG), the Diabetes Working Libertarian for Older People (EDWPOP), and the International Task Force of Experts in Diabetes. Mikhail Godinez et al. J [place] Medical Directors Association. 2012 Test results diagnostic of diabetes should be repeated for confirmation. The Sebia Capillary 2 assay for the measurement of HbA1c is a National Glycohemoglobin Standardization Program (NGSP)certified method. Blood BLOOD SPECIMEN / Unknown Venipuncture / Unknown 09/11/2020 8:14 AM ASSOCIATE PROFESSOR OF COMMUNICATION 09/11/2020 8:18 AM ASSOCIATE PROFESSOR OF COMMUNICATION Narrative [facility] - 09/11/2020 10:41 AM ASSOCIATE PROFESSOR OF COMMUNICATION note^<nlbl:demographic_changed> Margarita Plata APRN-SHELLS INSPECTOR LAB - CHEMISTRY ORDERABLES Performing Organization Address City/State/[facility] Co de Phone Number [facility] [address] [place] [address], [facility] [phone] from Last 3 Months or Most Recently Relevant to Health Maintenance Insurance Payer Benefit Plan / Group Subscriber ID Effective Dates Phone Address Type [facility] [place] [facility] [place] [id number] 02/25/2023-Pres ent [address] [place] [address] Medicaid Managed Care WELLCARE WELLCARE HMO POS MEDICARE ADV [id number] 07/28/2022-Pres ent [facility] HEALTH PLANS [address] [address] [place] [address] Medicare-Man aged Care MEDICAID - OUT OF [facility] [place] [id number] Effective for all dates [address] [address] [place] [address] Medicaid MEDICAID - OUT OF [facility] [place] [id number] Effective for all dates [address] [address] [place] [address] Medicaid MEDICARE WPS MEDICARE PART B [id number] 06/27/2020-Pre sent [address] [address] [place] [address] Medicare MEDICAID - OUT OF [place] [id number] Effective for all dates [address] [address] [place] [address] Medicaid MEDICARE WPS MEDICARE PART B [id number] 06/27/2020-Pre sent [address] [address] [place] [address] Medicare MEDICAID - OUT OF [place] [id number] Effective for all dates [address] [address] [place] [address] Medicaid MEDICAID - OUT OF [facility] [place] [id number] Effective for all dates [address] [address] [place] [address] Medicaid MEDICAID - OUT OF [facility] [place] [id number] Effective for all dates [address] [address] [place] [address] Medicaid WELLCARE WELLCARE HMO POS MEDICARE ADV [id number] 07/28/2022-Pres ent [employer] PLANS [address] [address] [place] [address] Medicare-Man aged Care MEDICAID - OUT OF STATE [place] [id number] Effective for all dates [address] [address] [place] [address] Medicaid MEDICARE WPS MEDICARE PART B [id number] 06/27/2020-Pre sent [address] [address] [place] [address] Medicare WELLCARE WELLCARE HMO POS MEDICARE ADV [id number] 07/28/2021-Pres ent [employer] [facility] [address] [address] [place] [address] Medicare-Man aged Care MEDICAID - OUT OF [place] [id number] Effective for all dates [address] [address] [place] [address] Medicaid MEDICARE WPS MEDICARE PART B [id number] 06/27/2020-Pre sent [address] [address] [place] [address] Medicare WELLCARE WELLCARE HMO POS MEDICARE ADV [id number] 07/28/2021-Pres ent [employer] PLANS [address] [address] [place] [address] Medicare-Man aged Care MEDICAID - OUT OF STATE MEDICAID [facility] PUBLIC AID [id number] Effective for all dates [address] [address] [place] [address] Medicaid MEDICARE WPS MEDICARE PART B [id number] 06/27/2020-Pre sent [address] [address] [place] [address] Medicare WELLCARE WELLCARE HMO POS MEDICARE ADV [id number] 07/28/2021-Pres ent [employer] [facility] PLANS [address] [address] [place] [address] Medicare-Man aged Care MEDICAID - OUT OF [place] [id number] Effective for all dates [address] [address] [place] [address] Medicaid MEDICARE WPS MEDICARE PART B [id number] 06/27/2020-Pre sent [address] [address] [place] [address] Medicare WELLCARE WELLCARE HMO POS MEDICARE ADV [id number] 07/28/2021-Pres ent [employer] [facility] PLANS [address] [address] [place] [address] Medicare-Man aged Care MEDICAID - OUT OF STATE [place] [id number] Effective for all dates [address] [address] [place] [address] Medicaid MEDICARE WPS MEDICARE PART B [id number] 06/27/2020-Pre sent [address] [address] [place] [address] Medicare WELLCARE WELLCARE HMO POS MEDICARE ADV [id number] 07/28/2021-Pres ent [employer] [facility] PLANS [address] [address] [place] [address] Medicare-Man aged Care MEDICAID - OUT OF STATE [place] [id number] Effective for all dates [address] [address] [place] [address] Medicaid MEDICARE WPS MEDICARE PART B [id number] 06/27/2020-Pre sent [address] [address] [place] [address] Medicare WELLCARE WELLCARE HMO POS MEDICARE ADV [id number] 07/28/2021-Pres ent [employer] [facility] PLANS [address] [address] [place] [address] Medicare-Man aged Care MEDICAID - OUT OF STATE [place] [id number] Effective for all dates [address] [address] [place] [address] Medicaid MEDICARE WPS MEDICARE PART B [id number] 06/27/2020-Pre sent [address] [address] [place] [address] Medicare WELLCARE WELLCARE HMO POS MEDICARE ADV [id number] 07/28/2021-Pres ent [employer] [facility] [address] [address] [place] [address] Medicare-Man aged Care MEDICAID - OUT OF STATE [place] [id number] Effective for all dates [address] [address] [place] [address] Medicaid MEDICARE WPS MEDICARE PART B [id number] 06/27/2020-Pre sent [address] [address] [place] [address] Medicare WELLCARE WELLCARE HMO POS MEDICARE ADV [id number] 07/28/2021-Pres ent [employer] [facility] [address] [address] [place] [address] Medicare-Man aged Care MEDICAID - OUT OF [place] [id number] Effective for all dates [address] [address] [place] [address] Medicaid WELLCARE WELLCARE HMO POS MEDICARE ADV [id number] 07/28/2022-Pres ent [employer] [facility] [address] [address] [place] [address] Medicare-Man aged Care WELLCARE WELLCARE HMO POS MEDICARE ADV [id number] 07/28/2021-Pres ent [employer] [facility] [address] [address] [place] [address] Medicare-Man aged Care MEDICAID - OUT OF STATE [place] [id number] Effective for all dates [address] [address] [place] [address] Medicaid WELLCARE WELLCARE HMO POS MEDICARE ADV [id number] 07/28/2021-Pres ent [employer] [facility] [address] [address] [place] [address] Medicare-Man aged Care MEDICAID - OUT OF STATE [place] [id number] Effective for all dates [address] [address] [place] [address] Medicaid WELLCARE WELLCARE HMO POS MEDICARE ADV [id number] 07/28/2021-Pres ent [employer] [facility] [address] [address] [place] [address] Medicare-Man aged Care MEDICAID - OUT OF STATE [place] [id number] Effective for all dates [address] [address] [place] [address] Medicaid WELLCARE WELLCARE HMO POS MEDICARE ADV [id number] 07/28/2021-Pres ent [employer] [address] [address] [place] [address] Medicare-Man aged Care MEDICAID - OUT OF STATE MEDICAID [facility] PUBLIC AID [id number] Effective for all dates [address] [address] [place] [address] Medicaid WELLCARE WELLCARE HMO POS MEDICARE ADV [id number] 07/28/2021-Pres ent [employer] [facility] [address] [address] [place] [address] Medicare-Man aged Care MEDICAID - OUT OF [place] [id number] Effective for all dates [address] [address] [place] [address] Medicaid WELLCARE WELLCARE HMO POS MEDICARE ADV [id number] 07/28/2021-Pres ent [employer] [facility] [address] [address] [place] [address] Medicare-Man aged Care MEDICAID - OUT OF STATE MEDICAID [facility] PUBLIC AID [id number] Effective for all dates [address] [address] [place] [address] Medicaid WELLCARE WELLCARE HMO POS MEDICARE ADV [id number] 07/28/2021-Pres ent [employer] [address] [address] [place] [address] Medicare-Man aged Care MEDICAID - OUT OF [place] [id number] Effective for all dates [address] [address] [place] [address] Medicaid WELLCARE WELLCARE HMO POS MEDICARE ADV [id number] 07/28/2021-Pres ent [employer] [address] [address] [place] [address] Medicare-Man aged Care MEDICAID - OUT OF [place] [id number] Effective for all dates [address] [address] [place] [address] Medicaid WELLCARE WELLCARE HMO POS MEDICARE ADV [id number] 07/28/2021-Pres ent [employer] [facility] [address] [address] [place] [address] Medicare-Man aged Care MEDICAID - OUT OF STATE [place] [id number] Effective for all dates [address] [address] [place] [address] Medicaid WELLCARE WELLCARE HMO POS MEDICARE ADV [id number] 07/28/2021-Pres ent [employer] [facility] [address] [address] [place] [address] Medicare-Man aged Care MEDICAID - OUT OF STATE MED[place] [id number] Effective for all dates [address] [address] [place] [address] Medicaid WELLCARE WELLCARE HMO POS MEDICARE ADV [id number] 07/28/2021-Pres ent [employer] [facility] [address] [address] [place] [address] Medicare-Man aged Care MEDICAID - OUT OF STATE MED[place] [id number] Effective for all dates [address] [address] [place] [address] Medicaid WELLCARE WELLCARE HMO POS MEDICARE ADV [id number] 07/28/2021-Pres ent [employer] [facility] [address] [address] [place] [address] Medicare-Man aged Care MEDICAID - OUT OF STATE MED[place] [id number] Effective for all dates [address] [address] [place] [address] Medicaid WELLCARE WELLCARE HMO POS MEDICARE ADV [id number] 07/28/2021-Pres ent [employer] [facility] [address] [address] [place] [address] Medicare-Man aged Care MEDICAID - OUT OF STATE MED[place] [id number] Effective for all dates [address] [address] [place] [address] Medicaid WELLCARE WELLCARE HMO POS MEDICARE ADV [id number] 07/28/2021-Pres ent [employer] [facility] [address] [address] [place] [address] Medicare-Man aged Care MEDICAID - OUT OF [place] [id number] Effective for all dates [address] [address] [place] [address] Medicaid WELLCARE WELLCARE HMO POS MEDICARE ADV [id number] 07/28/2021-Pres ent [employer] [facility] [address] [address] [place] [address] Medicare-Man aged Care MEDICAID - OUT OF [place] MED[place] [id number] Effective for all dates [address] [address] [place] [address] Medicaid WELLCARE WELLCARE HMO POS MEDICARE ADV [id number] 07/28/2021-Pres ent [employer] [facility] [employer] [address] [address] [place] [address] Medicare-Man aged Care MEDICAID - OUT OF STATE MEDICA[place] [id number] Effective for all dates [address] [address] [place] [address] Medicaid WELLCARE WELLCARE HMO POS MEDICARE ADV [id number] 07/28/2021-Pres ent [employer] [facility] [address] [address] [place] [address] Medicare-Man aged Care MEDICAID - OUT OF STATE MEDICAID [place] [id number] Effective for all dates [address] [address] [place] [address] Medicaid MEDICARE WPS MEDICARE PART B [id number] 06/27/2020-Pre sent [address] [address] [place] [address] Medicare MEDICAID - OUT OF STATE MEDICA[place] [id number] Effective for all dates [address] [address] [place] [address] Medicaid MEDICARE WPS MEDICARE PART B [id number] 06/27/2020-Pre sent [address] [address] [place] [address] Medicare MEDICAID - OUT OF STATE MEDICAID [place] [id number] Effective for all dates [address] [address] [place] [address] Medicaid MEDICARE WPS MEDICARE PART B [id number] 06/27/2020-Pre sent [address] [address] [place] [address] Medicare MEDICAID - OUT OF STATE [place] [id number] Effective for all dates [address] [address] [place] [address] Medicaid MEDICARE WPS MEDICARE PART B [id number] 06/27/2020-Pre sent [address] [address] [place] [address] Medicare MEDICAID - OUT OF STATE MED[place] [id number] Effective for all dates [address] [address] [place] [address] Medicaid MEDICARE WPS MEDICARE PART B [id number] 06/27/2020-Pre sent [address] [address] [place] [address] Medicare MEDICAID - OUT OF [place] [id number] Effective for all dates [id number] [place] [address] Medicaid MEDICARE WPS MEDICARE PART B [id number] 06/27/2020-Pre sent [address] [address] [place] [address] Medicare MEDICAID - OUT OF STATE MEDICA[place] [id number] Effective for all dates [id number] [place] [address] Medicaid MEDICAID - OUT OF STATE MEDICA[place] [id number] Effective for all dates [address] [place] [address] Medicaid MEDICAID - OUT OF STATE MEDICA[place] [id number] Effective for all dates [address] [place] [address] Medicaid MEDICAID - OUT OF STATE MEDICAID [place] [id number] Effective for all dates [id number] [place] [address] Medicaid MEDICAID - OUT OF STATE MEDICAID [place] [id number] Effective for all dates [id number] [place] [address] Medicaid MEDICAID - OUT OF STATE MEDICAID [place] [id number] Effective for all dates [address] [place] [address] Medicaid MEDICAID - OUT OF STATE MED[place] [id number] Effective for all dates [id number] [place] [address] Medicaid MEDICAID - OUT OF STATE MEDICAID [place] [id number] Effective for all dates [phone] [address] [address] [place] [address] Medicaid MEDICARE WPS MEDICARE PART B [id number] 06/27/2020-Pre sent [address] [address] [place] [address] Medicare MEDICARE WPS MEDICARE PART B [id number] 06/27/2020-Pre sent [address] [address] [place] [address] Medicare Advance Directives * Full Code (Latest Code Status on File) Date Activated Date Inactivated Comments 09/11/2020 11:47 PM 09/13/2020 3:46 PM * Full Code Date Activated Date Inactivated Comments 09/10/2020 11:11 AM 09/11/2020 7:25 PM Care Teams Auger Supervisor Relationship Specialty Start Date End Date Unknown, Provider PCP - General 01/01/18
--- OUTSIDE RECORDS SUMMARY | 2024-09-13 11:10 | XMS_ITS | Clinical Summary ---
Author Organization [facility] Address [address] [place] [address] Phone Care Team Providers Care Salesperson Flying Squad Name Role Phone Xander, Cecile Godinez APRN, SHARI Primary Care Provider Allergies No known active allergies Medications albuterol (PROVENTIL HFA, VENTOLIN HFA) 108 (90 Base) MCG/ACT Aerosol Solution take 2 Puffs by inhalation every 6 hours as needed for Wheezing. 1 Inhaler 7 Active JANUVIA 100 MG Tablet TK 1 T PO QD 4 8 Active Umeclidinium [place] (INCRUSE ELLIPTA IN) take by inhalation. 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 [place] or callus 10/06/2017 Dermatophytosis of nail 10/06/2017 [...] Comments Blood Pressure 152/90 06/18/2019 12:50 PM [facility] Pulse 77 06/18/2019 12:50 PM [facility] Temperature 36.7 C (98.1 F) 06/18/2019 12:50 PM [facility] Respiratory Rate 17 06/18/2019 12:50 PM [facility] Oxygen Saturation 94% 06/18/2019 12:50 PM [facility] Inhaled Oxygen Concentration - - Weight 115.7 kg (255 lb) 06/18/2019 12:50 PM [facility] Height 185.4 cm (6' 1 ) 06/18/2019 12:50 PM [facility] Body Mass Index 33.64 06/18/2019 12:50 PM [facility] Plan of Treatment Health Maintenance Due Date [...] - 144 mmol/L 03/05/2019 2:07 PM CDT [facility] POTASSIUM 4.0 3.5 - 5.1 mmol/L 03/05/2019 2:07 PM CDT [facility] CHLORIDE 99(L) 100 - 110 mmol/L 03/05/2019 2:07 PM CDT [facility] CO2, VENOUS 28 22 - 32 mmol/L 03/05/2019 2:07 PM CDT [facility] ANION GAP 15.0 8.0 - 20.0 mmol/L 03/05/2019 2:07 PM CDT [facility] GLUCOSE 114(H) 70 - 99 mg/dL 03/05/2019 2:07 PM CDT [facility] BUN 9 8 - 23 mg/dL 03/05/2019 2:07 PM CDT [facility] CREATININE, BLOOD 1.10 0.80 - 1.30 mg/dL 03/05/2019 2:07 PM CDT [facility] BUN/CREATININE RATIO 8(L) 12 - 20 ratio 03/05/2019 2:07 PM [facility] TOTAL PROTEIN 7.6 6.0 - 8.3 g/dL 03/05/2019 2:07 PM T [facility] ALBUMIN 4.1 3.5 - 5.2 g/dL 03/05/2019 2:07 PM T [facility] Comment: The colormetric methods used for the determination of Albumin may lead to falsely elevated test results in patients suffering from renal failure or insufficiency due to interference with other proteins. A/G RATIO 1.2 1.0 - 2.0 03/05/2019 2:07 PM CDT [facility] CALCIUM 9.9 8.9 - 10.3 mg/dL 03/05/2019 2:07 PM [facility] T BILI 0.3 <=1.2 mg/dL 03/05/2019 2:07 PM [facility] SGOT (AST) 22 <=40 U/L 03/05/2019 2:07 PM [facility] SGPT (ALT) 18 <=41 U/L 03/05/2019 2:07 PM T [facility] ALKALINE PHOSPHATASE 76 40 - 130 U/L 03/05/2019 2:07 PM [facility] GFR, EST. NONAFRICAN >60 >=60 03/05/2019 2:07 PM CDT [facility] GFR, EST. >60 >=60 019 2:07 PM [facility] Comment: Creatinine Clearance is the preferred criteria for selecting drug dose adjustments in renally impaired patients. The GFR is provided as additional pertinent clinical information. GFR is reported in mL/min/1.73 sq m. Blood specimen (specimen) Venous Catheter (IV) / Unknown 03/05/2019 1:35 PM CDT 03/05/2019 1:43 PM CDT Sergio Mcgowan MD CHEMISTRY ORDERABLES Final Result [facility] [address] [place] [address] from Last 3 Months or Most Recently Relevant to Health Maintenance Insurance MEDICARE C [employer] Care Teams Salesperson Flying Squad Relationship Specialty Start Date End Date Cecile Terrell APRN, GROUNDS AND NURSERY SPECIALIST [address] [place] [address] PCP - General Advanced Practice Nurse 04/22/22
--- OUTSIDE RECORDS SUMMARY | 2024-09-13 11:10 | XMS_ITS | Encounter Summary ---
Author Organization [facility] Address [address] [facility] [place] [address] Phone Care Team Providers Care Drum Stock Clerk Name Role Phone Cecile Terrell APRN, CNP Primary Care Provider Reason for Referral * PT/OT/ST (Routine) - Closed Specialty Diagnoses / Procedures Referred By Contdave t Referred To Contact Physical Therapy Diagnoses Cerebrovascular accident (CVA), unspecified mechanism (HCC) Cecile Terrell APRN, CNP [address] [place] [address] Phone: tel: fax: [facility] at [address] [address] Phone: tel: fax: Referral ID Status Reason Start Date Expiration Date Visits Re quested Visits Authorized [id number] Closed 02/11/2024 50 11 Scheduling Instructions Encounter Details Date Type Department Care Team (Latest Contact Info) Description 02/11/2024 Transcribe Orders [facility] [address] [place] [address] Cecile Terrell APRN, CNP [address] [place] [address] Cerebrovascular accident (CVA), unspecified mechanism [...] Primary documented in this encounter Care Teams Drum Stock Clerk Relationship Specialty Start Date End Date Cecile Terrell APRN, ANSWERING SERVICE AGENT [address] [place] [address] PCP - General Advanced Practice Nurse 04/22/22 documented as of this encounter
--- OUTSIDE RECORDS SUMMARY | 2024-09-13 11:10 | XMS_ITS | Clinical Summary ---
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 Gender Identity Not on file Sexual Orientation Not on file Obstetrics History Last Filed Vital Signs Vital Sign Reading Time Taken Comments Blood Pressure 114/70 03/13/2021 1:17 PM CDT Pulse 66 03/13/2021 1:17 PM CDT Temperature 36 C (96.8 F) 08/22/2020 2:57 PM CARDIAC CARE UNIT NURSE Respiratory Rate 14 03/13/2021 1:17 PM CDT Oxygen Saturation 100% 08/22/2020 2:57 PM CARDIAC CARE UNIT NURSE Inhaled Oxygen Concentration - - Weight 112.5 [...] 11:45 AM CDT COLONOSCOPY 08/22/2020 1:47 PM CARDIAC CARE UNIT NURSE CTA ABDOMINAL AORTA AND BILATERAL ILIOFEMORAL RUNOFF Schedule Routine, Read Routine (OP Routine) 04/04/2020 4:17 PM CDT Claudication (CMS/HCC) from Last 3 Months or Most Recently Relevant to Health Maintenance Results * eGFR (03/27/2022 12:52 PM CDT) eGFR 77 mL/min/1. 73 m2 [facility] ([facility]) Comment: Interpretive Data Reference Interval [...] BLOOD ORDERABL ES Final Result [facility] ([facility]) [address] [facility] [place] [address] * (ABNORMAL) Hemoglobin A1c (03/27/2022 [...] and children were not included. (Diabetes Care 31:1366-2685, 2008). The eAG is not equivalent to a fasting glucose. Blood 03/27/2022 12:5 2 PM CDT 03/27/2022 3:20 PM CDT Jt Banegas MD LAB BLOOD ORDERABL ES Final Result [facility] [address] [facility] Department [place] [address] * Lipid panel (10/31/2021 11:45 AM CDT) [...] LAB BLOOD ORDERABL ES Final Result [facility] [address] Department of Laboratories [place], [place] [id number] * COLONOSCOPY (08/22/2020 1:47 PM CARDIAC CARE UNIT NURSE) Anatomical Region Laterality Modality Other Narrative Procedure Note Ignacio Landers MD - 08/22/2020 1:47 PM CST [facility] Patient Name: Philip Barron Procedure Date: 08/22/2020 1:47 PM Date of : 1955 Admit Type: Outpatient Age: 65 Gender: Male Attending MD: Ignacio Landers M.D. Room: [facility] 1 Note Status: Finalized [...] passed under direct vision.The Pediatric Colonoscope [id number]-[id number] was introduced through the anus and advanced [...] small. Electronically signed by Ignacio Landers M.D. Igncaio Landers M.D. 08/22/2020 2:31:41 PM Number of Addenda: 0 Note Initiated On: 08/22/2020 1:47 PM Procedure Code(s): --- Professional --- 35019, Colonoscopy, flexible; with biopsy, single or multiple Diagnosis Code(s): --- Professional --- Z12.11, Encounter for screening for malignant neoplasm of colon K64.8, Other hemorrhoids D12.5, Benign neoplasm of sigmoid colon K57.30, Diverticulosis of large intestine without perforation orabscess without bleeding CPT copyright 2017 [employer]. All rights reserved. The codes documented in this report are preliminary and upon hims coder reviewmay be revised to meet current compliance requirements. Recognized by the [place] [employer] for promoting quality [...] Most Recently Relevant to Health Maintenance Insurance [facility] MEDICARE O [facility] MEDICARE IDPA MANAGED MEDICARE GENERIC RISK OTHER [facility] MEDICARE HMO [facility] Advance Directives For more information, please contact: [phone] * Full Code (Latest Code Status on File) Date Activated Date Inactivated Comments 08/22/2020 1:38 PM 08/22/2020 7:14 PM * Full Code Date Activated Date Inactivated Comments 08/22/2020 1:38 PM 08/22/2020 1:38 PM Care Teams Senior Clinical Study Manager Relationship Specialty Start Date End Date Cecile Terrell NP [address] [address] PCP - General Family Medicine 03/13/21
--- OUTSIDE RECORDS SUMMARY | 2024-09-13 11:10 | XMS_ITS | Encounter Summary ---
Author Organization [facility] Healthcare Address [address] [place] [address] Care Team Providers Care Flatlock Sewing Machine Operator Name Role Phone Vineet Conklin PATTERN TECHNICIAN Primary Care Provider [phone] Cecile Terrell PATTERN TECHNICIAN Primary Care Provider [phone] Encounter Details Date Type Department Care Team ([facility] Contact Info) Description 03/21/[address] [address] [place] Pelayo, Social History Tobacco Use Types Packs/Day Years Used Date Smoking Tobacco: Every Day Sex and Gender Information Value Date Recorded Sex Assigned at Not on file 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
--- OUTSIDE RECORDS SUMMARY | 2024-09-13 11:10 | XMS_ITS | Encounter Summary ---
Author Organization [facility] Address [address] [place] [address] Phone Care Team Providers Care Deployment Engineer Name Role Phone Romaine Frank DO Primary Care Provider Vineet Conklin FARM MORTGAGE AGENT Primary Care Provider [phone] Cecile Terrell FARM MORTGAGE AGENT Primary Care Provider [phone] Encounter Details Date Type Department Care Team (Late st Contact Info) Description 05/13/2014 Orders Only [facility] Provider, MD Nereyda [address] [place] [address] Social History Tobacco Use Types Packs/Day Years Used Date Smoking Tobacco: Never Assessed Sex and Gender Information Value Date Recorded Sex Assigned at Not on file 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 Gender Identity Not on file Sexual Orientation [...] on filedocumented in this encounter Care Teams Deployment Engineer Relationship Specialty Start Date End Date Romaine Frank DO [address] [place] [address] [address]E [address] [place] [address] PCP - General Cardiovascular Disease 09/14/19 0 Vineet Conklin NP [address] [facility] [address] [place] [address] PCP - General Internal Medicine 12/09/19 03/12/21 Cecile Terrell NP [address] [address] PCP - General Family Medicine 03/13/21 documented as of this encounter
--- OUTSIDE RECORDS SUMMARY | 2024-09-13 11:10 | XMS_ITS | Encounter Summary ---
Author Organization [facility] Address [address] [place] [address] Phone Care Team Providers Care Operator And Truck Driver Name Role Phone Xander, Cecile Godinez APRN, SHARI Primary Care Provider Reason for Visit * Reason Onset Date Comments Appointment 04/01/2024 Encounter Details Date Type Department Care Team (Late st Contact Info) Description 04/01/2024 [facility]phone [facility] [address] [place] [id number] Carlos Patino PTA [place] Appointment Social History Tobacco Use Types Packs/Day [...] on filedocumented in this encounter Care Teams Operator And Truck Driver Relationship Specialty Start Date End Date Cecile Terrell, FLEET SALES MANAGER, MOTOR BUILDER WINDER [address] [place] [address] PCP - General Advanced Practice Nurse 04/22/22 documented as of this encounter
--- OUTSIDE RECORDS SUMMARY | 2024-09-13 11:10 | XMS_ITS | Data Portability ---
Author Organization [facility], Main Office Address [address] [place] [address] Assessment Encounter Date Assessment Date Assessment LastModified by Organization Details LastModified Time 11/04/2022 11/04/2022 This note is dictated and transcribed by [employer]. Regional Hr Manager variances may occur. Despite proofreading, typographical errors may occur. [email or web address] Not available 11/04/2022 12:28:44 Plan of Treatment Reminders Order Date Submit Date Provider Last Modified By Organization Details Last Modified Time Details Appointments None recorded. Lab None recorded. Referral None recorded. Procedures None recorded. Surgeries None recorded. Imaging None recorded. Medication Orders ammonium lactate 12 % topical cream 2022 023 [id number], [address] [place], [place], [id number], 3 12:50:54 ketoconazol e 2 % topical cream 2022 023 [email or web address] [id number], [address] [place], [place], [id number], 4 08:37:08 Patient TargetsNo targets recorded. Patient InstructionsNo instructions recorded. Reason for Referral None Reported. Problems Name Problem SNOMED Code Status Onset Date Resolution Date Notes Provider Name and Address Organization Details Recorded Time Hypercholeste rolemia 24759164 Active 2017 Not Available [facility] 3 20:19:51 Dry skin 18807388 Active 2019 Not Available [facility] 3 20:19:51 Foot callus 104539148 Active 2019 Not Available [facility] 3 20:19:51 Dry skin dermatitis 643815142 Active 2019 Not Available [facility] 3 20:19:51 Bronchitis 53736778 Active 2017 Not Available [facility] 3 20:19:51 Depressive disorder 18125058 Active 2017 Not Available [facility] 3 20:19:51 Arthritis 4154335 Active 2017 Not Available [facility] 3 20:19:51 Onychomycosis of toenails 041193959 Active 2017 Not Available [facility] 3 20:19:51 Diabetic peripheral neuropathy 142040042 Active 2017 Not Available [facility] 3 20:19:52 Foot pain 67319631 Active 2017 Not Available [facility] 3 20:19:52 Tinea pedis 4251039 Active 2019 Not Available [facility] 3 20:19:52 Diabetes mellitus 10125505 Active 2017 Not Available [facility] 3 20:19:52 Severe dry skin 918999533 Active 2022 Markus Kerr DPM [address], [address], [place], [address] , [employer] 3 12:28:19 Notes:eye problems, difficul ty sleeping, balance problems, numbness or tingling, shortness of breath, excessive thirst, sleep apnea, vision problems Problem Notes None recorded. Procedures Surgical History Date Name Laterality Status Provider Name and Address Organization Details Recorded Time 3 Nail Debridement completed Makrus Kerr DPM [address], [address], [place], [address], [employer] 11/04/2022 14:49:25 3 Callus Debridement, One completed Markus Kerr DPM [address], [place], [address], [employer] 11/04/2022 14:49:17 Imaging Results None recorded. Procedure [...] cm 185.42 cm 185.42 cm 56 /min 05272 g 88293 g 110 mm[Hg] 90 mm[Hg] Not Available [facility] 3 20:19:29 Date Recorded Heart rate Respiratory rate Oxygen saturation Oxygen saturation in Arterial blood by Pulse oximetry Systolic blood pressure Diastolic blood pressure Provider Name and Address Organization Details Last Updated DateTime 3 80 /min 18 /min 98 % 98 % 123 mm[Hg] 66 mm[Hg] Odalys Sierra [facility] 3 12:02:15 Social History Question Answer Notes LastModified by Organizat ion Details LastModified Time Tobacco Smoking Status Current Every Day Smoker RITO Yoon null, [facility] 03/08/2024 08:39:24 What Is Your Level Of [...] TYPE Y DEPRESSION (INCLUDING POST ) Y HYPERTENSION Y COPD Y STROKE/TIA Y HIGH CHOLESTEROL / HYPERLIPIDEMIA Y Past Encounters Encounter ID Performer Location Encounter Start Date Encounter Closed Date Diagnosis/Indication Diagnosis SNOMED-CT Code Diagnosis ICD10 Code Diagnosis Note [id number] [facility] [address] [place] [address] 10/09/2020 00:00:00 10/09/2020 09:57:58 [id number] [facility] [address] [place] [address] 03/05/2021 00:00:00 03/05/2021 14:48:07 [id number] [facility] [address] [place] [address] 06/14/2021 00:00:00 06/14/2021 20:46:13 [id number] Markus Kerr DPM [facility] [address] [place] [address] 11/04/2022 11:56:31 11/04/2022 15:22:57 Severe dry skin 607384572 L85.3 Rx Amlactin newDaily foot hygieneFol low-up 3 months Onychomyco sis of toenails 693159495 B35.1 Educated on conditionN ails 1 through 10 were debrided with sharp mechanical debridemen t without incident. Nails were debrided and greater than 50% length and thickness where needed. Diabetic p eripheral neuropathy 526614204 E11.40 Patient educated on neuropathy , diabetes, [...] [place] Member ID Guarantor Name 11/04/2022 1 [place] Philip Barron [id number] Philip Barron 11/04/2022 1 [place] [facility] Philip Barron [id number] Philip E Anderson Notes Date Note Type [...] other pedal complaints. Markus Kerr DPM [address] [facility], [facility] [address], [place], [address], [facility] 11/04/2022 14:50:14
--- OUTSIDE RECORDS SUMMARY | 2024-09-13 11:11 | XMS_ITS | Encounter Summary ---
Author Organization [facility] Address [address] [place] [address] [place] [address] Care Team Providers Care Flour Inspector Name Role Phone Unknown, Provider Primary Care Provider Unavaila ble Reason for Visit * Reason Comments Refill Request Encounter Details Date Type Department Care Team (Late st Contact Info) Description 10/14/2018 Refill [facility] [address] [facility] [address] [place] [address] Nava Morgan MD [address] [place] [address] Refill Request Social History Tobacco Use Types Packs/Day Years Used Date Smoking Tobacco: Every Day Cigarettes 0.5 35 Smokeless Tobacco: Never Alcohol Use Standard Drinks/Week Comments No 0 (1 standard drink = 0.6 oz pur e alcohol) Sex and Gender Information Value Date Recorded Sex Assigned at Not on file Gender Identity Male 09/11/2020 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
--- OUTSIDE RECORDS SUMMARY | 2024-09-13 11:11 | XMS_ITS | Data Portability ---
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 Treatment planning is underway. [email or web address] Not available 03/22/2022 09:57:22 Plan of Treatment Reminders Order Date Submit Date Provider Last Modified By Organization Details Last Modified Time Details Appointments None recorded. Lab None recorded. 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 Surgeries None recorded. Imaging None recorded. Medication Orders Adult Low Dose Aspirin 81 mg tablet,wendie yed release 2021 022 [id number], [address] , [place], [place], [phone], 12:02:24 Plavix 75 mg tablet 2021 022 [facility] #[id number], [address], [place], [place], [phone], 12:02:25 Patient TargetsNo targets recorded. Patient InstructionsNo instructions recorded. 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 [email or web address] Not Available 2021 17:00:54 Result Notes None recorded. Problems Name Problem SNOMED Code Status Onset Date Resolution Date Notes Provider Name and Address Organization Details Recorded Time Essential hypertension 89649768 Active 2021 donovan rodriguez, [place] [facility] and 2 07:17:04 Diabetes mellitus 04253639 Active 2021 donovan june null, [place] - [facility] and 07:17:01 Moderate chronic obstructive pulmonary disease 334180198 Active 2021 donovan june null, [place] - [facility] and 07:17:09 Problem Notes None recorded. Procedures Surgical History Date Name Laterality Status Provider Name and Address Organization Details Recorded Time OA LE revascularization completed Jt Banegas MD [address] [place] [address], [phone], [place] [facility] 11/19/2021 12:01:11 OA LE revascularization completed Jt Banegas MD [id number] [place] [address], [address], [place] - [facility] and 11/11/2021 03:47:29 [email or web address] completed Anahy Karthik [place] - [facility] and 10/05/2021 12:55:33 OA LE Quantiflow study completed [facility] - [facility] and 10/05/2021 11:26:41 procedure on upper arm completed [facility] - [facility] and 10/05/2021 11:34:13 Imaging Results Imaging Date Name Status [facility] Details LastModified Time 10/04/2021 US, doppler, venous completed [email or web address] Information not available 12/12/2021 17:00:54 Procedure Notes [...] Updated DateTime 2 185.42 cm 33.8 kg/m2 455729. 65 g 70 /min 60 /min 160 mm[Hg] 89 mm[Hg] 142 mm[Hg] 76 mm[Hg] Sarah Oquendo [facility] 2 12:17:14 Date Recorded Body height Body mass index (BMI) Body weight Heart rate Systolic blood pressure Diastolic blood pressure Provider Name and Address Organization Details Last Updated DateTime 2 185.42 cm 33.8 kg/m2 950618. 65 g 60 /min 142 mm[Hg] 76 mm[Hg] Anahy Angeles [facility] and 2 12:55:47 Date Recorded Body height Body mass index (BMI) Body weight Heart rate Systolic blood pressure Diastolic blood pressure Provider Name and Address Organization Details Last Updated DateTime 2 185.42 cm 33.4 kg/m2 547941. 87 g 74 /min 98 mm[Hg] 58 mm[Hg] donovan jnue [place] - [facility] and 2 08:38:06 Date Recorded Body height Body mass index (BMI) Body weight Heart rate Systolic blood pressure Diastolic blood pressure Provider Name and Address Organization Details Last Updated DateTime 2 185.42 cm 31 kg/m2 428610. 21 g 78 /min 123 mm[Hg] 77 [...] Social History Question Answer Notes LastModified by [email or web address] ion Details LastModified Time Tobacco Smoking Status Current Every Day Smoker Sarah rodriguez, [place] - [facility] and 10/05/2021 11:31:45 Are You Blind Or Do You Have Difficulty Seeing? Yes Difficulty Seeing. Went To Eye Doctor Yesterday And Will Be Getting Glasses. [email or web address] Information not available 10/05/2021 In The 14 Days Before Symptom Onset, Have You Had Close Contact With A Laboratory-confi rmed COVID-19 While That Case Was Ill? No [email or web address] Information not available 10/05/2021 In The 14 Days Before Symptom Onset, Have You Had Close Contact With A Person Who Is Under Investigation For COVID-19 While That Person Was Ill? No [email or web address] Information not available 10/05/2021 Have You Been To An Area Known To Be High Risk For COVID-19? No Information not available 10/05/2021 Are You Deaf Or Do You Have Serious Difficulty Hearing? No [email or web address] Information not available 10/05/2021 What Type Of Diet Are You Following? DIABETIC Patient Is Supposed To Be On A Diabetic Diet, But States He Eats What He Wants. [email or web address] Information not available 10/05/2021 Have You Processed Blood Or Body Fluids From An Ebola Virus Disease Patient Without Appropriate PPE? No [email or web address] Information not available 10/05/2021 Do You Reside In Or Have You Traveled To An Area Where Ebola Virus Transmission Is Active? No [email or web address] Information not available 10/05/2021 What Is The Highest Grade Or Level Of School You Have Completed Or The Highest Degree You Have Received? QB20660-9 [email or web address] Information not available 10/05/2021 What Was The Date Of Your Most Recent Tobacco Screening? 03/22/2022 [email or web address] Information not available 03/22/2022 How Much Tobacco Do You Smoke? 0.5 PPD [email or web address] Information not available 03/22/2022 Do You Or Have You Ever Used Any Other Forms Of Tobacco Or Nicotine? No [email or web address] Information not available 03/22/2022 Sex: Unknown Functional Status Question Answer Note LastModified by Organizat ion Details LastModified Time Do you have difficulty walking or climbing stairs? Yes Has issues because of the pain in his legs and the callouses on his feet. [email or web address] Information not available 10/05/2021 Are you able to walk? YESWOREST Stops frequently to issues with his legs. States It's like they lose energy. [email or web address] Information not available 10/05/2021 Do you have difficulty doing errands alone? No [email or web address] Information not available 10/05/2021 Do you have difficulty dressing or bathing? No [email or web address] Information not available 10/05/2021 What is your exercise level? None [email or web address] Information not available 10/05/2021 Mental Status Question Answer Note LastModified by Organization D etails LastModified Time Do you have difficulty concentrating, remembering or making decisions? No [email or web address] Information no t available 10/05/2021 Family History [...] [address] Jt [address] ( [facility] [address] [place] [address] 10/05/2021 10:50:39 10/09/2021 10:42:19 Peripheral vascular disease 723979421 I73.9 Varicose v eins of lower extremity 51168209 I83.893 Primary ve nous insufficiency of leg 613671316 I87.2 Bilateral lower limb pain at rest due to atherosclerosis 9368675482 7453356 I70.223 Complicati on due to diabetes mellitus 64188003 E11.59 [address] [place] [address] [place] [address] 10/05/2021 12:45:41 10/10/2021 11:13:53 Bilateral lower limb pain at rest due to atherosclerosis 1166544578 0527462 I70.223 [address] ( [place] ) [address] [place] [address] 11/07/2021 08:11:12 11/19/2021 12:50:05 Bilateral lower limb pain at rest due to atherosclerosis 3143583714 0836483 I70.223 [address] Jt [address] [place] [address] ( [place] ) [address] [place] [address] 11/19/2021 06:55:59 11/19/2021 17:47:49 Bilateral lower limb pain at rest due to atherosclerosis 1246418170 3694141 I70.[address] [address] [facility] ,[facility] [address] [place] [address] 12/04/2021 09:46:32 12/04/2021 10:19:40 Bilateral lower limb pain at rest due to atherosclerosis 5110949747 6519073 I70.223 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 571880265 L97.509 [address] ( [place] ) [address] [facility] [place] [address] 03/22/2022 09:29:10 03/22/2022 10:04:47 Bilateral lower limb pain at rest due to atherosclerosis 0917986154 6953565 I70.223 Health Concerns Section Related Observation LastModified by Organization Detai ls LastModified Time None Recorded Concern Status LastModified by Organization Details LastModified Time None Recorded Advance Directives Directive None Recorded Payers Encounter Date Sequence Insurance Name Policy Number Policy Palma Covered Member ID Palma Member ID Guarantor Name 10/05/2021 1 [employer] (MEDICARE REPLACEMENT/A DVANTAGE - PPO) Philip Barron [id number] Philip Barron 11/07/2021 1 [employer] (MEDICARE REPLACEMENT/A DVANTAGE - PPO) Philip Barron [id number] Philip Barron 11/19/2021 1 [employer] (MEDICARE REPLACEMENT/A DVANTAGE - PPO) Philip Barron [id number] Philip Barron 12/04/2021 1 [employer] (MEDICARE REPLACEMENT/A DVANTAGE - PPO) Philip Anderson [id number] Philip Anderson 03/22/2022 1 [employer] (MEDICARE REPLACEMENT/A DVANTAGE - PPO) Philip Anderson [id number] Philip Anderson Notes Date Note Type Note Provider Name and Address Organization Details Recorded Time 10/05/2021 text/html Arterial Occlusi ve Disease: Lower ExtremityReported bypatient.[facility] Quality:cramping; burning; aching; tingling; pain with exertion; cramping with exertion Severity:severe Duration:has noted for years Onset/Timing:continuou s; at rest; with exercise begins at <1/2 block; with exercise begins at 1 block Context:tobacco use Aggravating Factors:walking; standing Associated Symptoms:weakness;numb ness/tingling;paresthe susan;[place] [address], [address], [facility] and 10/05/2021 13:31:13 11/07/2021 text/html Patient with a h istory of {{right left bilateral *}}{{claudication rest pain* tissue loss/ulcer}}, presenting for angiogram with possible intervention Jt Banegas [place] [address] [place] [address], [address], [address], [facility] and 11/11/2021 03:58:24 11/19/2021 text/html Patient with a h istory of {{right left bilateral *}}{{claudication rest pain* tissue loss/ulcer}}, presenting for angiogram with possible intervention Jt Banegas MD [address] [place] [address], [address], [facility] and 11/19/2021 12:02:39 12/04/2021 text/html [...] for the first time ever). Divina rodriguez, [facility] and 12/04/2021 10:05:08 03/22/2022 text/html [...] been taking his plavix. Jt Banegas [place] [address] [place] [address], [address], [address], [facility] and 03/22/2022 09:58:15
--- OUTSIDE RECORDS SUMMARY | 2024-09-13 11:11 | XMS_ITS | Data Portability ---
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 Not available 01/22/2024 14:43:15 02/19/2024 02/19/2024 Mr. Barron presented in office today for follow up appointment. Patient complaining of tooth pain since last visit. Not available 02/22/2024 23:36:33 Plan of Treatment Reminders Order Date Submit Date Provider Last Modified By Organization Details Last Modified Time Details Appointments None recorded. Lab HbA1c (hemoglob in A1c), blood 2023 024 [facility] In-Office Order, Internal Use Only DO Not Attach Compendium DO Not Attach Compendium, Do Not Delete/merge, [id number] 12:31:30 HbA1c (hemoglob in A1c), blood 2023 024 [facility], [address] [facility] [address], [place], [address], 11:14:59 lipid panel, serum 2023 024 [facility], [address] [place] [address] 2, [place], [address], 4 11:14:59 PSA, total, serum or plasma 2023 024 [facility], [address] [place] [address] 2, [place], [address], 11:14:59 CMP, serum or plasma 2023 024 [facility], [address] [place] [address], [place], [address], 11:14:59 CBC w/ auto diff 2023 024 [facility], [address] [place] [address], [place], [address], 11:14:59 CBC w/ auto diff 2023 024 [email or web address] [facility]), [address] [place], [address], 12:56:51 ige, total, serum 2023 024 [email or web address] [facility]), [address] [place], [address], 12:57:29 Referral podiatris t referral 2023 024 [email or web address] [facility], [facility], [address] [place] [address], [address], 13:38:43 gastroent erologist referral 2023 024 [email or web address] Singletary MD, [address] [facility], [address], [place], [address], 4 12:59:51 physical therapist referral 2023 024 [facility], [address] [facility], [address], [place], [address], 4 12:06:29 podiatris t referral 2023 024 [facility] Prado DPM, [address] [facility], [facility] [address], [place], [address], 4 15:08:08 Procedures pulmonary stress test, simple (PROC) - 6 Minute Walk Test 2023 024 [facility], [address] [place] [address], [address], 5 05:01:11 polysomno graphy, split night (PROC) 2023 024 [facility], [address] [place] [address], [address], 5 05:01:11 Surgeries None recorded. Imaging LDCT, chest, for lung cancer screening 2023 024 [facility], [address] [place] [address], [address], 4 09:55:58 PFT, complete - W/ Post Bronchodi lator Spirometr y 2023 024 [facility], [address] [place] [address], [address], 4 05:01:06 Medication Orders amoxicill in 875 mg tablet 2023 024 [facility] #[facility], [address] , [place], [place], [id number], 4 12:19:48 bupropion HCl XL 150 mg 24 hr tablet, extended release [address] [facility]75704, [address] [facility], [place], [id number], 4 12:24:31 albuterol sulfate HFA 90 mcg/actua tion aerosol inhaler 2023 024 [facility] #34541, [address] [facility], [place], [place], [id number], 4 11:01:18 bupropion HCl XL 150 mg 24 hr tablet, extended release [address] [facility]70076, [address] [facility], [place], [place], [id number], 4 14:33:14 Symbicort 160 mcg-4.5 mcg/actua tion HFA aerosol inhaler 2023 024 [facility] #52338, [address] [facility], [place], [place], [id number], 4 10:46:50 doxycycli ne monohydra te 100 mg tablet 2023 024 [facility], [address] [facility], [place], [place], [id number], 4 10:46:01 prednison e 10 mg tablets in a dose pack 2023 024 [facility] #15200, [address] [place], [place], [id number], 4 10:46:55 albuterol sulfate HFA 90 mcg/actua tion aerosol inhaler 2023 024 [facility] #26594, [address] [place] [address], [id number], 12:02:57 Patient TargetsNo targets recorded. Patient Instructions Encounter Date Encounter Id Patient Instructions Last Modified By Organization Details Last Modified Time 08/21/2023 [id number] - Always present to ER or Urgent Care with any progression of/alarming symptoms, significant changes in symptoms or any concerning or urgent matters Not available 08/23/2023 13:17:26 10/27/2023 [id number] Quitting Tobacco : Care Instructions ajamous Not available 10/27/2023 10:46:37 chronic obstructive pulmonary disease (COPD): care instructions ajamous Not available 10/27/2023 10:46:37 learning about chronic bronchitis ajamous Not available 10/27/2023 10:46:38 12/18/2023 [id number] Quitting Tobacco : Care Instructions Not available 12/20/2023 19:55:20 advance care planning: care instructions Not available 12/18/2023 11:08:50 preventing falls : care instructions Not available 12/18/2023 11:08:51 Quitting Tobacco : Care Instructions Not available 12/18/2023 11:08:51 Medicare [facility] Preventive Checklist Not available 12/18/2023 11:08:51 eating healthy foods: care instructions Not available 12/18/2023 11:08:51 AD8 Dementia Screening Interview Not available 12/18/2023 11:08:51 A healthy lifestyle: care instructions Not available 12/18/2023 11:08:50 - Always present to ER or Urgent Care with any progression of/alarming symptoms, significant changes in symptoms or any concerning or urgent matters Not available 12/18/2023 11:00:29 01/20/2024 [id number] - Always present to ER or Urgent Care with any progression of/alarming symptoms, significant changes in symptoms or any concerning or urgent matters Not available 01/20/2024 10:39:56 02/19/2024 [id number] - Always present to ER or Urgent Care with any progression of/alarming symptoms, significant changes in symptoms or any concerning or urgent matters Not available 02/19/2024 12:17:04 Reason for Referral 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 Referral for Type 2 diabetes mellitus Referring Physician: Cecile Mckee [facility], Encounter Date: 08/21/2023 Physical Therapist Referral for Cerebrovascular accident Referring Physician: Cecile Mckee [facility] [place], Encounter Date: 08/21/2023 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 Referral for History of polyp of colon Referring Physician: Cecile Mckee [facility] [place], Encounter Date: 12/18/2023 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 Referral for Type 2 diabetes mellitus Referring Physician: Cecile Mckee [facility], Encounter Date: 12/18/2023 Results Created Date Observation Date Name Description Value Unit Range Abnormal Flag Note LastModifiedBy Organization Detail LastModifiedTime 02/19/2002/19/2024 HbA1c (hemo globi n A1c), blood HbA1c 6.6 Not Available In-Office Order Internal Use Only DO Not Attach Compendium DO Not Attach Compendium, Do Not Delete/merge, [id number] 02/19/2024 12:12:02 09/08/1909/07/2024 XR, chest , 2 view No observ ation record ed. [facility] [address] [facility] [address], [place], [address], 09/08/2024 11:30:02 Result Notes None recorded. Problems Name Problem SNOMED Code Status Onset Date Resolution Date Notes Provider Name and Address Organization Details Recorded Time Type 2 diabetes mellitus 49615458 Active 2017 Not Available [facility] 2 22:01:02 Well controlled type 2 diabetes mellitus 793376959 Active 2017 Not Available [facility] 2 22:01:02 Feeling suicidal 739106121 Active 2017 Not Available [facility] 2 22:01:02 Pain in bilateral legs 7109785066449 9108 Active 2017 Not Available [facility] 2 22:01:02 Foot callus 967481229 Active 2017 Not Available [facility] 2 22:01:02 Neuropathy 642393908 Active 2018 Not Available [facility] 2 22:01:02 Pain in bilateral lower legs 0906301275756 9106 Active 2018 Not Available [facility] 2 22:01:02 Insomnia 373271241 Active 2019 Not Available [facility] 2 22:01:02 Peripheral vascular disease 322411239 Active 2019 Not Available [facility] 2 22:01:02 Body mass index 30+ - obesity 651117538 Active 2021 Not Available [facility] 2 22:01:02 Dizziness 963940280 Active 2022 CECILE MCKEE NP Attn: Accounting ,[address] [place], [address] , [place] [facility] 3 11:55:08 Cerebrovas cular accident 740639813 Active 2022 CECILE MCKEE NP Attn: Accounting ,[address] [place], [address] , [place] [facility] 4 16:28:56 Hyperlipid emia 57915644 Active 2023 CECILE MCKEE NP Attn: Accounting ,[address] [place], [address] , [place] [facility] 4 11:08:40 Impaired mobility 11723444 Active 2023 CECILE MCKEE NP Attn: Accounting ,[address] [place], [address] , [place] [facility] 4 14:34:08 Chronic obstructiv e pulmonary disease 68091918 Active Not Available [facility] 2 22:01:02 Essential hypertensi on 29619202 Active Not Available [facility] 2 22:01:02 Tobacco user 376186610 Active Not Available [facility] 2 22:01:02 Blood glucose outside reference range 664337540 Active Not Available [facility] 2 22:01:02 Dyspnea 460384383 Active Not Available [facility] 22:01:02 Problem Notes None recorded. Procedures Surgical History None recorded. Imaging Results Imaging Date Name Status LastModified by Organiz ation Details LastModified Time 09/07/2024 XR, chest, 2 view active [facility] [address], [place], [address], 09/08/2024 11:30:02 Procedure Notes None recorded. Medical Equipment None [...] Available Not Available Not Available Afluria Quad 6849-5830 60 mcg (15 mcg x 4)/0.5 mL IM suspension 07/10 completed Not Available Not Available Not Available Afluria Qd 2018- (36 mos up)(PF)60 [...] Updated DateTime 4 186.69 cm 31.8 kg/m2 405826. 89 g 97 % 97 % 78 /min 18 /min 97.3 [degF] 138 mm[Hg] 80 mm[Hg] Olga Rendon LPN [place] [facility] 4 11:34:34 Date Recorded Body height Pain severity - 0-10 verbal numeric rating [Score] - Reported Body temperature Body mass index (BMI) Body weight Oxygen saturation Oxygen saturation in Arterial blood by Pulse oximetry Heart rate Respiratory rate Systolic blood pressure Diastolic blood pressure Provider Name and Address Organization Details Last Updated DateTime 4 185.42 cm 0 98.4 [degF] 31.4 kg/m2 466646. 98 g 96 % 96 % 76 /min 18 /min 120 mm[Hg] 72 mm[Hg] Cecile Jasso LPN [place] [facility] 4 10:00:23 Date Recorded Body height Respiratory rate Body mass index (BMI) Body weight Body temperature Heart rate Oxygen saturation Oxygen saturation in Arterial blood by Pulse oximetry Systolic blood pressure Diastolic blood pressure Provider Name and Address Organization Details Last Updated DateTime 4 185.42 cm 16 /min 31.6 kg/m2 211544. 73 g 97.1 [degF] 77 /min 94 % 94 % 115 mm[Hg] 70 mm[Hg] Kallie Loera MA [facility] 4 10:53:57 Date Recorded Body height Respiratory rate Body mass index (BMI) Body weight Body temperature Heart rate Oxygen saturation Oxygen saturation in Arterial blood by Pulse oximetry Systolic blood pressure Diastolic blood pressure Provider Name and Address Organization Details Last Updated DateTime 4 185.42 cm 16 /min 31.8 kg/m2 974920. 11 g 96.9 [degF] 89 /min 91 % 91 % 126 mm[Hg] 75 mm[Hg] Kallie Loera MA [facility] 4 10:36:24 Date Recorded Body height Respiratory rate Body mass index (BMI) Body weight Body temperature Heart rate Oxygen saturation Oxygen saturation in Arterial blood by Pulse oximetry Systolic blood pressure Diastolic blood pressure Provider Name and Address Organization Details Last Updated DateTime 4 185.42 cm 16 /min 30.7 kg/m2 789731. 88 g 96.9 [degF] 68 /min 97 % 97 % 147 mm[Hg] 84 mm[Hg] Kallie Loera MA [facility] 4 12:06:25 Date Recorded Systolic blood pressure Diastolic blood pressure Provider Name and Address Organization Details Last Updated DateTime 02/19/2024 131 mm[Hg] 82 mm[Hg] CECILE MCKEE NP Attn: Accounting,[address] [place], [address], [facility] 02/19/2024 12:24:27 Social History Question Answer Notes LastModified by Organizat ion Details LastModified Time Tobacco Smoking Status Current Every Day Smoker Yesy Aguirre MA null, [facility] 04/26/2015 10:19:30 Do You Have An Advance [...] Do You Have A Medical Power Of Color Print Inspector? No Information not available 10/27/2023 What Was [...] Anxious, Or Unable To Sleep At Night)? [id number] Information not available 10/26/2020 Do You Use [...] virus, quadrivalent, preservative 8 completed Not Available [facility] 02/12/2022 22:01:02 Influenza, split virus, quadrivalent, preservative 9 completed Not Available [facility] 08/21/2023 11:12:24 Influenza, split virus, quadrivalent, preservative 0 completed Not Available [facility] 08/21/2023 11:12:24 COVID-19, mRNA, LNP-S, PF, 100 mcg/0.5mL dose or 50 mcg/0.25mL dose 1 completed CECILE MCKEE, WILLOWER Attn: Accounting,[address] [facility], [place], [place], [address] [place] [address], [place] [facility] 07/16/2022 12:34:00 Influenza, split virus, quadrivalent, preservative 1 completed Not Available [facility] 08/21/2023 11:12:24 pneumococcal polysaccharide PPV23 2 completed CECILE MCKEE, WILLOWER Attn: Accounting,[address] [facility], [place], [place], [address] [place] [address], [place] [facility] 07/16/2022 12:34:00 Influenza, split virus, quadrivalent, preservative 5 completed CECILE MCKEE, WILLOWER Attn: Accounting,[address] [facility], [place], [address] [place] [address], [place] [facility] 07/16/2022 12:34:00 Influenza, split virus, quadrivalent, preservative 9 completed CECILE MCKEE, WILLOWER Attn: Accounting,[address] [facility], [place], [address] [place] [address], [place] [facility] 07/16/2022 12:34:00 Tdap 8 completed CECILE MCKEE, WILLOWER Attn: Accounting,[address] [facility], [place], [place], [address] [place] [address], [place] [facility] 07/16/2022 12:34:00 Influenza, split virus, quadrivalent, PF 1 completed CECILE MCKEE, WILLOWER Attn: Accounting,[address] [facility], [place], [address] [place] [address], [place] [facility] 07/16/2022 12:34:00 Influenza, split virus, quadrivalent, PF 0 completed CECILE MCKEE, WILLOWER Attn: Accounting,[address] [facility], [place], [address] [place] [address], [place] [facility] 07/16/2022 12:34:00 Tdap 8 completed CECILE MCKEE, WILLOWER Attn: Accounting,[address] [facility], [place], [address] [place] [address], [place] [facility] 07/16/2022 12:34:00 Influenza, adjuvanted, quadrivalent, PF 2 completed CECILE MCKEE, WILLOWER Attn: Accounting,[address] [facility], [place], [address] [place] [address], [place] [facility] 07/16/2022 12:39:32 Influenza, high-dose, quadrivalent, PF 3 completed CECILE MCKEE, WILLOWER Attn: Accounting,[address] [facility], [place], [address] [place] [address], [place] [facility] 07/03/2023 11:18:46 Pneumococcal conjugate PCV20, polysaccharide [id number] conjugate, adjuvant, PF 3 completed CECILE MCKEE, WILLOWER Attn: Accounting,[address] [facility], [place], [place], [address] [place] [address], [place] [facility] 07/03/2023 11:18:46 COVID-19, mRNA, LNP-S, PF, haritha-sucrose, 30 mcg/0.3 mL 3 completed CECILE MCKEE, WILLOWER Attn: Accounting,[address] [facility], [place], [address] [place] [address], [place] [facility] 07/03/2023 11:18:46 COVID-19, mRNA, [...] SNOMED-CT Code Diagnosis ICD10 Code Diagnosis Note [id number] Tatianna Lindsay [facility] [address] [place] [address] 04/26/2015 10:05:11 04/26/2015 14:16:21 Chronic obstructive pulmonary disease 76746816 Essential hypertension 48769926 Tobacco user 370261735 Adult heal th examination 625344669 Screening for malignant neoplasm of prostate 511613230 Influenza vaccine needed 0550606378 106 [id number] Vineet Lindsay [facility] [address] [place] [address] 11/02/2015 10:18:01 11/02/2015 12:26:48 Dyspnea 965477249 R06.00 Chronic ob structive pulmonary disease 33397469 J44.9 Tobacco user 859386910 Z 72.0 [id number] Vineet Lindsay [facility] [address] [place] [address] 11/16/2015 15:08:14 11/17/2015 09:40:13 Dyspnea 462708506 R06.00 Chronic ob structive pulmonary disease 21752387 J44.9 Essential hypertension 58882101 I10 [id number] Vineet Conklin [facility] [address] [place] [address] 03/13/2017 14:24:48 03/14/2017 10:04:56 Chronic obstructive pulmonary disease 54654969 J44.9 Tobacco user 065925614 Z 72.0 Essential hypertension 07646461 I10 Adult [facility] th examination 601183105 Z00.00 [id number] Lincoln Hollis MD [facility] [address] [place] [address] 08/19/2017 16:17:27 08/21/2017 11:22:41 Essential hypertension 18583542 I10 Blood gluc ose outside reference range 863349623 R73.09 Chronic ob structive pulmonary disease 54494369 J44.9 Hyperglycemia 94772515 R 73.9 Soft tissu e lesion of foot region 865558371 M79.9 Smoker 49674087 F17.507 [id number] Vineet Conklin [facility] [address] [place] [address] 10/13/2017 14:01:00 10/14/2017 11:16:44 Chronic obstructive pulmonary disease 09721753 J44.9 Tobacco user 723486186 Z 72.0 Essential hypertension 46832659 I10 Well contr olled type 2 diabetes mellitus 733487847 E11.9 Serum crea tinine above reference range 001890732 R79.89 [id number] Vineet Anderson 14 IM [address] [facility] [place] [address] 02/04/2018 14:12:52 02/17/2018 09:42:19 Tobacco user 651904984 Z72.0 Chronic ob structive pulmonary disease 21416718 J44.9 Well contr olled type 2 diabetes mellitus 706592485 E11.9 Essential hypertension 69782879 I10 Pain in bi lateral legs 6287751639 6410739 M79.604 M79.139 [id number] Vineet Anderson 14 IM 4 [facility] [place] [address] 03/09/2018 13:34:57 03/11/2018 10:22:53 Feeling suicidal 763003901 R45.851 Recent hospitaliz ation at [place] Has f/u with psych gissel. Pain in bi lateral legs 9319945835 1177314 M79.604 M79.605 Has f/u with cardiology [id number] Vineet Anderson 14 IM 4 [facility] [place] [address] 04/01/2018 12:39:27 04/02/2018 14:54:46 Foot callus 291030958 L84 [id number] Vineet Anderson 14 IM 4 [facility] [place] [address] 06/17/2018 15:37:43 06/20/2018 11:14:15 Tobacco user 859834433 Z72.0 Chronic ob structive pulmonary disease 89008554 J44.9 Well contr olled type 2 diabetes mellitus 683789481 E11.9 Essential hypertension 68803142 I10 [id number] Vineet Anderson 14 IM 4 [facility] [place] [address] 10/13/2018 14:32:52 10/14/2018 09:24:56 Tobacco user 690396779 Z72.0 Chronic ob structive pulmonary disease 36327481 J44.9 Well contr olled type 2 diabetes mellitus 865681306 E11.9 Essential hypertension 78150301 I10 Preparatio n of medical certificate 910605177 Z02.79 Surgical clearance for cataract [id number] THU Atkinson 14 IM 4 [facility] [place] [address] 01/25/2019 10:51:18 01/26/2019 11:29:54 Tobacco user 876544525 Z72.0 Chronic ob structive pulmonary disease 16571622 J44.9 Well contr olled type 2 diabetes mellitus 678373643 E11.9 Essential hypertension 20100449 I10 Neuropathy 910552336 G62 .9 Pain in bi lateral lower legs 9881583247 5249961 M79.661 M79.967 [id number] THU Atkinson 14 IM 4 [facility] [place] [address] 03/11/2019 15:09:34 03/12/2019 12:24:54 Pain in bilateral lower legs 1596990176 8033748 M79.661 M79.662 Essential hypertension 22320764 I10 Acute exac erbation of chronic obstructive pulmonary disease 022973803 J44.1 Order nebulizer machine [id number] THU Atkinson 14 IM 4 [facility] [place] [address] 06/10/2019 14:11:23 06/11/2019 10:06:10 Tobacco user 666466166 Z72.0 Chronic ob structive pulmonary disease 20838408 J44.9 Well contr olled type 2 diabetes mellitus 906560232 E11.9 Essential hypertension 76579255 I10 Neuropathy 954153951 G62 .9 [id number] Vineet Anderson 14 IM 4 [facility] [place] [address] 10/27/2019 08:02:43 10/28/2019 14:24:19 Tobacco user 243711282 Z72.0 Chronic ob structive pulmonary disease 30147230 J44.9 Neuropathy 274286559 G62 .9 Type 2 dinorah betes mellitus 67649232 E11.9 Essential hypertension 83914958 I10 Insomnia 221406296 G47.0 0 Peripheral vascular disease 113069416 I73.9 [id number] Vineet Anderson 14 IM 4 [facility] [place] [address] 01/26/2020 09:21:05 01/31/2020 17:16:46 Tobacco user 679684984 Z72.0 Chronic ob structive pulmonary disease 67939855 J44.9 Insomnia 540120002 G47.0 0 Neuropathy 644433004 G62 .9 Type 2 dinorah betes mellitus 75418918 E11.9 Essential hypertension 43191648 I10 [id number] Yesy Aguirre MA Lawrence 14 IM 4 [facility] [address] [place] [place] [address] 06/08/2020 14:59:58 06/09/2020 21:02:34 Tobacco user 834378933 Z72.0 Chronic ob structive pulmonary disease 27494309 J44.9 Insomnia 599187120 G47.0 0 Neuropathy 449015666 G62 .9 Peripheral vascular disease 041922384 I73.9 Type 2 dinorah betes mellitus 85158243 E11.9 Essential hypertension 44351375 I10 Screening for malignant neoplasm of colon 632930697 Z12.11 [id number] Lea Armenta MA [facility] [address] [place] [address] 10/26/2020 10:35:42 10/30/2020 14:39:24 Essential hypertension 11288090 I10 - b/p in office today 158/100 - Continue medication as prescribed and diet/exerc ise as previously discussed. - Take occasional BP s, call if consistent ly >140/90. - Discussed reasons for sooner f/u than months. - Patient verbalizes understand ing. Type 2 dinorah betes mellitus 65232058 E11.21 - Educated on goal of blood [...] 3 months * 6 months}} Tobacco user 432748273 Z 72.0 - Patient is a current cigarette smoker, states he smokes 1 pk per day and currently has no desire to quit. - Patient advised in the derogatory effects of smoking - Counseling for smoking cessation completed Screening for malignant neoplasm of prostate 988293979 Z12.5 Chronic ob structive pulmonary disease 68193938 J44.9 - Encouraged and educated on the importance of pneumonia and influenza vaccinatio n. - Encouraged good pulmonary hygiene. Patient to notify provider if condition worsens or report immediatel y to ED with respirator y distress. - RTC in 3 months. (unstable 1 month) [id number] EDEN Henning 14 IM 4 [facility] [place] [address] 11/03/2020 11:14:51 11/04/2020 11:11:19 Administration of SARS-CoV-2 antigen vaccine 197400309 Z23 [id number] CECILE MCKEE NP [facility] [address] [place] [address] 11/16/2020 11:38:47 11/17/2020 14:23:23 Complaining of erectile dysfunction 872380232 N52.9 Essential hypertension 56360993 I10 - b/p in office today 156/70 - Continue medication as prescribed and diet/exerc ise as previously discussed. - Take occasional BP s, call if consistent ly >140/90. - Discussed reasons for sooner f/u than months. - Patient verbalizes understand ing. Chronic ob structive pulmonary disease 33957270 J44.9 - Encouraged and educated on the importance of pneumonia and influenza vaccinatio n. - Encouraged good pulmonary hygiene. Patient to notify provider if condition worsens or report immediatel y to ED with respirator y distress. - RTC in 3 months. (unstable 1 month) [id number] Maddi Zambrano LPN [facility] [address] [place] [address] 12/01/2020 15:54:01 12/18/2020 15:34:43 Administration of SARS-CoV-2 antigen vaccine [id number] Z23 [id number] MILY DAMON 14 IM 4 [facility] [place] [address] 03/12/2021 11:39:24 03/19/2021 15:36:34 Essential hypertension 92187632 I10 - b/p in office today 156/70, patient states he had not taken his medication . - Continue medication as prescribed and diet/exerc ise as previously discussed. - Take occasional BP s, call if consistent ly >140/90. - Discussed reasons for sooner f/u than months. - Patient verbalizes understand ing. Serum thyr oid stimulating hormone level outside reference range 359412454 R79.89 Renewal of prescription 115702241 Z76.0 [id number] CECILE MCKEE NP [place] 14 IM 4 [facility] [address] [place] [address] 08/20/2021 11:40:17 08/23/2021 13:13:04 Essential hypertension 01408754 I10 - b/p in office today 130/78 - Continue medication as prescribed and diet/exerc ise as previously discussed. - Take occasional BP s, call if consistent ly >140/90. - Discussed reasons for sooner f/u than months. - Patient verbalizes understand ing. Well contr olled type 2 diabetes mellitus 476479532 E11.9 - Educated on goal of blood [...] month 3 months 6 months*}} Tobacco user 696519558 Z 72.0 - Patient is a current cigarette smoker, states he smokes 1/4 pk per day and currently has no desire to quit. - Patient advised in the derogatory effects of smoking - Counseling for smoking cessation completed Administra tion of pneumococcal vaccine 37528566 Z23 - recommende d annual pneumococc al vaccinatio n Chronic ob structive pulmonary disease 44587271 J44.9 - Encouraged and educated on the importance of pneumonia and influenza vaccinatio n. - Encouraged good pulmonary hygiene. Patient to notify provider if condition worsens or report immediatel y to ED with respirator y distress. - RTC in 3 months. (unstable 1 month) [id number] CECILE MCKEE NP [facility] [address] [place] [address] 10/18/2021 10:05:10 10/23/2021 11:14:29 Pre-surgery evaluation 091445775 Z01.818 - Scheduled for Aif on 11/[address] Waters Chronic ob structive pulmonary disease 90739164 J44.9 - Encouraged and educated on the importance of pneumonia and influenza vaccinatio n. - Encouraged good pulmonary hygiene. Patient to notify provider if condition worsens or report immediatel y to ED with respirator y distress. - RTC in 3 months. (unstable 1 month) Tobacco user 551225693 Z 72.0 - Patient is a current cigarette smoker, states he smokes 1/4 pk per day and currently has no desire to quit. - Patient advised in the derogatory effects of smoking - Counseling for smoking cessation completed [id number] DEANDRE GARCIA NP [facility] (Adult Med) [address] [place] [address] 03/15/2022 14:36:11 03/18/2022 12:01:54 Chronic obstructive pulmonary disease 71560829 J44.9 MDI [facility], 6 min walk Dyspnea on exertion 6084 5006 R06.09 Echo, r/o PHTN Body mass index 30+ - obesity 285310218 Z68.32 Nicotine dependence 5629 4008 Z87.891 down to 5 cigarettes a day for past 4 months1/2 ppd for 50 years, 25 PYH Snoring 36547735 R06.83 Overnight oximetry study pending, may need sleep study Essential hypertension 43762652 I10 [id number] CECILE MCKEE NP [facility] [address] [place] [address] 01/15/2022 11:19:53 01/16/2022 11:29:57 Essential hypertension 85604125 I10 - b/p in office today 128/72 - Continue medication as prescribed and diet/exerc ise as previously discussed. - Take occasional BP s, call if consistent ly >140/90. - Discussed reasons for sooner f/u than months. - Patient verbalizes understand ing. Type 2 dinorah betes mellitus 93518301 E11.21 - Educated on goal of blood [...] month 3 months 6 months*}} Tobacco user 651375041 Z 72.0 - Patient is a current cigarette smoker, states he smokes 1/4 pk per day and currently has no desire to quit. - Patient advised in the derogatory effects of smoking - Counseling for smoking cessation completed Body mass index 30+ - obesity 939742462 Z68.31 advised low fat, low cholestero l, low carb diet, regular exercise and weight reduction. Positive s creening for depression on PHQ-9 (Patient Health Questionnaire 9) 6044742102 52903 Z13.89 - Discussed symptoms of depression /anxiety as well as the different treatment types.- All questions and concerns were addressed. - Pt is to monitor symptoms and RTC sooner if symptoms are worsening or not improving. [id number] CECILE MCKEE NP [facility] [address] [place] [address] 07/16/2022 12:07:46 07/17/2022 14:49:46 Essential hypertension 36919523 I10 - b/p in office today 148/86. Patient states he has not been taking Lisinopril . - Continue medication as prescribed and diet/exerc ise as previously discussed. - Take occasional BP s, call if consistent ly >140/90. - Discussed reasons for sooner f/u than months. - Patient verbalizes understand ing. Tobacco user 354088758 Z 72.0 - Patient is a current cigarette smoker, states he smokes 1/4 pk per day and currently has no desire to quit. - Patient advised in the derogatory effects of smoking - Counseling for smoking cessation completed Obesity 718551761 E66.9 advised low fat, low cholestero l, low carb diet, regular exercise and weight reduction. Type 2 dinorah betes mellitus 70389533 E11.21 - Educated on goal of blood [...] 3 months 6 months*}} Renewal of prescription 093946084 Z76.0 [id number] Lincoln Hollis MD [facility] [address] [place] [address] 09/02/2022 10:40:43 09/04/2022 09:44:15 Tobacco user 749126704 Z72.0 - Patient is a current cigarette smoker, states he smokes 1/4 pk per day and currently has no desire to quit. - Patient advised in the derogatory effects of smoking - Counseling for smoking cessation completed Essential hypertension 12332280 I10 - b/p in office today 148/86. Patient states he has not been taking Lisinopril . - Continue medication as prescribed and diet/exerc ise as previously discussed. - Take occasional BP s, call if consistent ly >140/90. - Discussed reasons for sooner f/u than months. - Patient verbalizes understand ing. Dizziness 375659031 R42 - Patient reports improvemen t of dizzy spells after he eats sugar.- Patient encourage to check blood sugar and blood pressure the next time he has an episode of dizziness. VU.- RTC for new or worsening symptoms. Type 2 dinorah betes mellitus 08690752 E11.21 - Educated on goal of blood [...] weeks 1 month 3 months 6 months*}} [id number] CECILE MCKEE NP [facility] [address] [place] [address] 09/18/2022 15:06:47 09/19/2022 09:55:38 Essential hypertension 04103664 I10 - b/p in office today 161/92 - Continue medication as prescribed and diet/exerc ise as previously discussed. - Take occasional BP s, call if consistent ly >140/90. - Discussed reasons for sooner f/u than months. - Patient verbalizes understand ing. History of syncope 15121 05415 85455 Z86.79 - r/o cardiac etiology Hemiparesis 71254877 G81 .91 - Patient advised to present to ER to r/o CVA [id number] [facility] (Adult Med) [address] [place] [address] 10/30/2022 11:50:21 10/31/2022 09:15:42 Chronic obstructive pulmonary disease 38650398 J44.9 StableMDI [facility] butero, nebsRefill Symbicort 160 mcg Nicotine dependence 5629 4008 Z87.891 1/2 ppd for 50 years, 25 PYHWill order LDCT, lung cancer screening. Discussed risk/benef its, importance of annual screening adherence, and smoking cessation. Body mass index 30+ - obesity 853070409 Z68.32 Essential hypertension 05618090 I10 Controlled [id number] CECILE MCKEE NP [facility] [address] [place] [address] 11/19/2022 11:05:52 11/20/2022 11:02:15 Essential hypertension 99788593 I10 - b/p in office today 150/73 - Continue medication as prescribed and diet/exerc ise as previously discussed. - Take occasional BP s, call if consistent ly >140/90. - Discussed reasons for sooner f/u than months. - Patient verbalizes understand ing. Tobacco user 424494370 Z 72.0 - Patient is a current cigarette smoker, states he smokes 1.5 pk per day and currently has no desire to quit. - Patient advised in the derogatory effects of smoking - Counseling for smoking cessation completed Type 2 dinorah betes mellitus 65067541 E11.21 - Educated on goal of blood [...] 3 months 6 months*}} Cerebrovas cular accident 893714915 I63.9 - Bettye, the patient's niece, reports that the patient has an appointmen t with a neurologis t on 12/21/2022 but cannot recollect the name. [id number] CECILE MCKEE NP [facility] [address] [place] [address] 12/31/2022 11:05:21 01/03/2023 14:55:02 Essential hypertension 52592492 I10 - b/p in office today 151/82 - Continue medication as prescribed and diet/exerc ise as previously discussed. - Take occasional BP s, call if consistent ly >140/90. - Discussed reasons for sooner f/u than 6 months. - Patient verbalizes understand ing. Type 2 dinorah betes mellitus 54826620 E11.21 - Educated on goal of blood [...] 3 months 6 months*}} Cerebrovas cular accident 062104502 I63.9 - Bettye niirina reports patient needs assistance with (cooking, dressing, cleaning) Upper resp iratory infection 76622152 J06.9 [id number] CECILE MCKEE NP [facility] [address] [place] [address] 07/03/2023 11:06:35 07/29/2023 14:05:51 Chronic obstructive pulmonary disease 49397897 J44.9 - Encouraged and educated on the importance of pneumonia and influenza vaccinatio n. - Encouraged good pulmonary hygiene. Patient to notify provider if condition worsens or report immediatel y to ED with respirator y distress. - RTC in 3 months. (unstable 1 month) Essential hypertension 81935432 I10 - b/p in office today 138/84 - Continue medication as prescribed and diet/exerc ise as previously discussed. - Take occasional BP s, call if consistent ly >140/90. - Discussed reasons for sooner f/u than 6 months. - Patient verbalizes understand ing. Type 2 dinorah betes mellitus 59101764 E11.21 - Educated on goal of blood [...] month 3 months 6 months*}} Tobacco user 402835850 Z 72.0 - Patient is a current cigarette smoker, states he smokes 1.5 pk per day and currently has no desire to quit. - Patient advised in the derogatory effects of smoking - Counseling for smoking cessation completed [id number] CECILE MCKEE NP [facility] [address] [place] [address] 08/21/2023 10:53:19 08/28/2023 16:08:48 Essential hypertension 06223547 I10 - b/p in office today 138/84 - Continue medication as prescribed and diet/exerc ise as previously discussed. - Take occasional BP s, call if consistent ly >140/90. - Discussed reasons for sooner f/u than 6 months. - Patient verbalizes understand ing. Type 2 dinorah betes mellitus 16132684 E11.21 - Educated on goal of blood [...] 3 months 6 months*}} Cerebrovas cular accident 235613733 I63.9 - Bettye golden reports patient needs assistance with (cooking, dressing, cleaning) Tobacco user 680695090 Z 72.0 - Patient is a current cigarette smoker, states he smokes 1.5 pk per day and currently has no desire to quit. - Patient advised in the derogatory effects of smoking - Counseling for smoking cessation completed Chronic ob structive pulmonary disease 98504198 J44.9 - Encouraged and educated on the importance of pneumonia and influenza vaccinatio n. - Encouraged good pulmonary hygiene. Patient to notify provider if condition worsens or report immediatel y to ED with respirator y distress. - RTC in 3 months. (unstable 1 month) [id number] Rajni Jordan MD [facility] [address] [place] [address] 10/27/2023 09:12:41 10/29/2023 16:10:28 Chronic bronchitis 36951040 J42 I will check PFTs, 6MWT, CBC and IgE Pulmonary emphysema 8743 3001 J43.9 I will add Symbicort to Albuterol and give steroids and doxy Sleep disorder 90533286 G47.9 I will check Split sleep study Nicotine dependence 5629 4008 F17.200 30 PYH, I will check LDCT [id number] CECILE MCKEE NP [facility] [address] [place] [address] 12/18/2023 10:31:00 12/23/2023 16:01:46 Tobacco user 372845179 Z72.0 - Patient is a current cigarette smoker, states he smokes 1.5 pk per day and currently has no desire to quit. - Patient advised in the derogatory effects of smoking - Counseling for smoking cessation completed Essential hypertension 24703979 I10 - b/p in office today 115/70 - Continue medication as prescribed and diet/exerc ise as previously discussed. - Take occasional BP s, call if consistent ly >140/90. - Discussed reasons for sooner f/u than 6 months. - Patient verbalizes understand ing. Type 2 dinorah betes mellitus 98165817 E11.21 - Educated on goal of blood [...] months*}} Screening for malignant neoplasm of prostate 049133787 Z12.5 Obesity 918241518 E66.9 advised low fat, low cholestero l, low carb diet, regular exercise and weight reduction. History of polyp of colon 237975904 Z86.010 - 5 mm polyp removed 07/2020, repeat colonoscop y was recommende d at 5 years Adult [facility] th examination 892805838 Z00.00 Health Risk Assessment collected and reviewed Hyperlipidemia 47398229 E78.5 [id number] CECILE MCKEE NP [facility] [address] [place] [address] 01/20/2024 10:06:28 01/26/2024 13:40:47 Depressive disorder 54850682 F32.A Chronic ob structive pulmonary disease 56490437 J44.9 - Encouraged and educated on the importance of pneumonia and influenza vaccinatio n. - Encouraged good pulmonary hygiene. Patient to notify provider if condition worsens or report immediatel y to ED with respirator y distress. - RTC in 3 months. (unstable 1 month) [id number] [facility] MCKEE [facility] [address] [place] [address] 02/19/2024 11:56:39 02/23/2024 09:55:15 Type 2 diabetes mellitus 17416794 E11.21 - Educated on goal of blood [...] month 3 months 6 months*}} Essential hypertension 82977914 I10 - b/p in office today 147/84, repeat pressure 131/82 - Continue medication as prescribed and diet/exerc ise as previously discussed. - Take occasional BP s, call if consistent ly >140/90. - Discussed reasons for sooner f/u than 4 months. - Patient verbalizes understand ing. Depressive disorder 0992 9007 F32.A - Discussed symptoms of depression /anxiety as well as the different treatment types.- Pt to started on Hydroxyzin e daily as directed.- Encouraged psychother apy in adjunct with medication therapy,.- All questions and concerns were addressed. - Pt to take meds as directed.- Pt is to monitor symptoms and RTC sooner if symptoms are worsening or not improving. Infection of tooth 36249 8007 K04.7 - Apply ice/cold pack on [...] [place] Member ID Guarantor Name 08/21/2023 1 [facility] - DOS ON OR AFTER 2020 - DUAL ELIGIBLE (MEDICARE REPLACEMENT/AD VANTAGE - HMO) [id number] Philip Barron [id number] Philip Barron 10/27/2023 2 [place] WHEN MEDICARE OR MEDICARE REPLACEMENT PRIMARY) Philip Barron [id number] Philip Barron 10/27/2023 1 [facility] ON OR AFTER 07/28/2020 - DUAL ELIGIBLE (MEDICARE REPLACEMENT/AD VANTAGE - HMO) [id number] Philip Barron [id number] Philip Barron 12/18/2023 1 [facility] ON OR AFTER 07/28/2020 - DUAL ELIGIBLE (MEDICARE REPLACEMENT/AD VANTAGE - HMO) [id number] Philip Barron [id number] Philip Barron 01/20/2024 1 [facility] ON OR AFTER 07/28/2020 - DUAL ELIGIBLE (MEDICARE REPLACEMENT/AD VANTAGE - HMO) [id number] Philip Barron [id number] Philip Barron 02/19/2024 1 [facility] ON OR AFTER 07/28/2020 - DUAL ELIGIBLE (MEDICARE REPLACEMENT/AD VANTAGE - HMO) [id number] Philip Barron [id number] Philip Barron Notes Date Note Type Note Provider Name and Address Organization Details Recorded Time 08/21/2023 text/html Diabetes F/UReported bypatient.Labs:last A1C result: 7.0 (07/03/23)Hypertens ion F/UReported bypatient.Associate d Symptoms:no dizziness; no lightheadedness; no chest pain; no shortness of breath; no palpitations Medications:taking medications as directed CECILE MCKEE NP Attn: Accounting,[address] [place], [address], [facility] 08/23/2023 13:18:13 10/27/2023 text/html Patient is here for evaluation of SOB. He has 30 PYH of smoking. He lives in [facility], He's up to date with COVID-19 vaccine. He has history of wheezing, cough and exertional dyspnea. he sleeps OK. Rajni Jordan MD [address] [facility], [place], [address], [place] [facility] 10/27/2023 10:47:07 12/18/2023 text/html Diabetes F/UReported bypatient.Labs:last [...] Medicare wellness exam. CECILE MCKEE NP Attn: [employer]ing,[address] [place], [address], [facility] [place] 12/20/2023 19:57:42 01/20/2024 text/html Mr. Barron arrived in the office today, accompanied by caregiver, for a tloc-ys-zqoh appointment regarding the need for a powered wheelchair to assist with mobility. CECILE MCKEE NP Attn: [address] [place], [address], [facility] [place] 01/22/2024 14:43:52 02/19/2024 text/html Anxiety/Depressi onR eported [...] of tooth pain since last visit. CECILE MKCEE NP Attn: Accounting,[address] [place], [address], [facility] 02/22/2024 23:37:17
== END 2024-09-10 13:05 | disposition home or self-care (01) ==
LOC: ANHED 23:21 → ANHIMU 09-08 10:57
PROVIDERS: Physician Assistant; Student in an Organized Health Care Education/Training Program; Admitting Provider General Practice; Emergency Provider Student in an Organized Health Care Education/Training Program; PCP Nurse Practitioner Family; Visit Provider Hospitalist
DX: J44.1 Chronic obstructive pulmonary disease with (acute) exacerbation (principal); J44.0 Chronic obstructive pulmonary disease with (acute) lower respiratory infection; J20.9 Acute bronchitis, unspecified; F17.210 Nicotine dependence, cigarettes, uncomplicated; I10 Essential (primary) hypertension; E11.42 Type 2 diabetes mellitus with diabetic polyneuropathy; F10.90 Alcohol use, unspecified, uncomplicated; R79.89 Other specified abnormal findings of blood chemistry; E03.8 Other specified hypothyroidism; G47.00 Insomnia, unspecified; Z20.822 Contact with and (suspected) exposure to COVID-19; Z79.51 Long term (current) use of inhaled steroids; Z79.899 Other long term (current) drug therapy
CPT/HCPCS: 36415; 71046; 80048; 80053; 82948; 83735; 83880; 84145; 84484; 85025; 85380; 85610; 85730; 87637; 93005; 93306; 94640; 96361; 96365; 96366; 96372; 96375; 99285; A9270; G0378; J0456; J1650; J1815; J2919; J3475; J7030; J7050; J7512

== ENCOUNTER 2024-10-01 05:35 | Observation (INO) | payer OTHER, SELFPAY ==
[2024-10-01] VITALS (17 sets, daily range): BP systolic 120–172; BP diastolic 57–97; PULSE 69–92; RESP 18–28; TEMP 36.2–36.9; O2SAT 95–100; BMI 28.1
--- NOTE | ~2024-10-01 | CT_ITS ---
EXAMINATION: CT cervical spine wo con DATE: 10/01/2024 06:32 INDICATION: Neck pain. Injury. TECHNIQUE: Computed tomography (CT) of the cervical spine was performed without intravenous contrast. Automated exposure control and iterative reconstruction technique were employed. The dose-length pro duct was 619.11 mGy-cm. COMPARISON: CTA neck 10/06/2022 FINDINGS: There is 6 degrees dextrocurvature of cervical spine. Vertebral body heights are normal. Th ere is mildly decreased disc height at C5-C6. The following disc levels are specifically discussed: C2-C3: There is mild right and severe left uncovertebral joint osteoarthritis. There is mild right an d severe left facet joint osteoarthritis. There is mild left neural foraminal stenosis. There is no c entral canal stenosis. C3-C4: There is mild bilateral uncovertebral joint osteoarthritis. There is mild right and severe lef t facet joint osteoarthritis. There is mild left neural foraminal stenosis. There is no central canal stenosis. C4-C5: There is mild bilateral uncovertebral joint osteoarthritis. There is mild right and moderate l eft facet joint osteoarthritis. There is mild left neural foraminal stenosis. There is no central can al stenosis. C5-C6: There is mild bilateral uncovertebral joint osteoarthritis. There is mild bilateral facet join t osteoarthritis. There is mild bilateral neural foraminal stenosis. There is mild central canal sten osis. C6-C7: There is no uncovertebral joint osteoarthritis. There is mild bilateral facet joint osteoarthr itis. There is no neural foraminal stenosis. There is no central canal stenosis. C7-T1: There is no uncovertebral joint osteoarthritis. There is mild bilateral facet joint osteoarthr itis. There is no neural foraminal stenosis. There is no central canal stenosis. IMPRESSION: 1. No fracture. 2. Mild cervical spondylosis. Reviewed, dictated and finalized at location A. 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
--- NOTE | ~2024-10-01 | CT_ITS ---
EXAMINATION: CTA chest PE protocol DATE: 10/01/2024 08:31 INDICATION: Shortness of breath. TECHNIQUE: Computed tomography (CT) pulmonary angiogram of the chest was performed with 100 mL Omnipa que-350 intravenous contrast. Additional 3D reconstructions utilizing coronal maximum intensity proje ction (MIP) were performed. Automated exposure control and iterative reconstruction technique were em ployed. The dose-length product was 1032.39 mGy-cm. COMPARISON: None FINDINGS: No evident pulmonary embolism. Sensitivity is decreased in some of the segmental and subsegmental pul monary arteries in the lower lungs due to some respiratory motion artifact. Mild emphysema. No pneumo lucero, pulmonary edema, pleural effusion or pneumothorax. Heart size is normal. Atherosclerotic coronar y artery calcification is. Lipomatous hypertrophy of the atrial septum. No pericardial effusion. Thor acic aorta is normal in caliber with no dissection. No pathologically enlarged thoracic lymphadenopat hy. Visualized upper abdomen is unremarkable. Mild thoracic spondylosis. IMPRESSION: 1. No pulmonary embolism or other acute cardiopulmonary disease. Sensitivity decreased in some of the segmental and subsegmental pulmonary arteries in the lower lungs due to respiratory motion artifact. 2. Mild emphysema. Reviewed, dictated and finalized at location B. [employer]ING [employer] IMPRESSION: 1. No pulmonary embolism or other acute cardiopulmonary disease. Sensitivity de creased in some of the segmental and subsegmental pulmonary arteries in the low er lungs due to respiratory motion artifact. 2. Mild emphysema.
--- NOTE | ~2024-10-01 | XR_ITS ---
EXAMINATION: XR wrist RT min 3V DATE: 10/01/2024 06:58 INDICATION: Right wrist pain. Fall. TECHNIQUE: 4 views of right wrist were obtained. COMPARISON: None. FINDINGS: Alignment is normal. No acute fracture. There is an old healed fracture of second proximal phalanx. Joint spaces are normal. IMPRESSION: 1. No acute fracture. Reviewed, dictated and finalized at location A. 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 No acute fracture.
--- NOTE | ~2024-10-01 | CT_ITS ---
EXAMINATION: CT brain wo con DATE: 10/01/2024 06:30 INDICATION: Head injury. TECHNIQUE: Computed tomography (CT) of the head was performed without intravenous contrast. The mA wa s adjusted according to patient size. Iterative reconstruction technique was employed. The dose-lengt h product was 681.00 mGy-cm. COMPARISON: Head CT 10/06/2022, brain MRI 10/07/2022 FINDINGS: There are old infarcts in the cerebellum bilaterally. There are old infarcts in the occipit al lobes, bilateral basal ganglia, left internal capsule, thalami, artem, and right frontal lobe. Ther e are scattered areas of low attenuation in the cerebral white matter, which is within normal limits for the patient's age. There is no intracranial hemorrhage, acute infarction, or abnormal intracrania l mass lesion. There is ex vacuo dilatation of body of left lateral ventricle. There is an old blowou t fracture of medial wall of left orbit. There is mild mucosal thickening in the paranasal sinuses. T here are likely changes of right ocular lens replacement surgery. The mastoid air cells are normal. IMPRESSION: 1. Old infarcts in the brain. Reviewed, dictated and finalized at location A. UP
--- NOTE | ~2024-10-01 | XR_ITS ---
EXAMINATION: XR hip RT 2V w AP pelvis DATE: 10/01/2024 06:58 INDICATION: Right hip pain. Fall. TECHNIQUE: An anteroposterior view of the pelvis and 2 views of right hip were obtained. COMPARISON: None. FINDINGS: Alignment is normal. No acute fracture. Osseous pubis is noted. The hip joint spaces are no rmal. IMPRESSION: 1. No acute fracture. Reviewed, dictated and finalized at location A. LAYER IMPRESSION: 1. No acute fracture.
--- NOTE | ~2024-10-01 | XR_ITS ---
EXAMINATION: XR chest 1V DATE: 10/01/2024 06:58 INDICATION: Shortness of breath. TECHNIQUE: A single frontal view of the chest was obtained. COMPARISON: Chest 2 views 09/07/2024 FINDINGS: There is no pneumonia, pleural effusion, or pneumothorax. The heart size is normal. There a re prominent pericardial fat pads. IMPRESSION: 1. No acute cardiopulmonary disease. Reviewed, dictated and finalized at location A. 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
--- NOTE | 2024-10-01 05:41 | ECG_ITS ---
Test Date: 2024-10-01 05:42:28 Measurements Intervals [place] Rate: 84 P: 151 MO: 94 QRS: 27 QRSD: 86 T: 3 QT: 413 QTc: 488 Interpretive Statements ECTOPIC ATRIAL RHYTHM WITH SHORT MO INTERVAL MODERATE T-WAVE ABNORMALITY, CONSIDER ANTERIOR ISCHEMIA [-0.1+ mV T WAVE IN V3/V4] Compared to ECG 09/07/2024 21:32:42 NO SIGNIFICANT CHANGES Electronically Signed On 10-01-2024 16:28:29 PATIENT DAY COORDINATOR by Danielle Gaspar M.D.
[2024-10-01 06:18] LABS: Alveolar/Arterial O2 Gradient 42.1 mmHg; Base Excess ABG 1.7 mEq/l (+/-2.0); Fractional Inspired Oxygen 21 %; HCO3 ABG 26.4 mEq/l (22.0-26.0); Oxygen Saturation ABG 90.6 % (95.0-100.0); PCO2 ABG 41.5 mmHg (35.0-45.0); PO2 ABG 57.9 mmHg (80.0-100.0); PO2 FiO2 Ratio Arterial Blood 2.76 %; Total Hemoglobin 13.9 g/dL (12.0-18.0); pH ABG 7.421 (7.350-7.450)
[2024-10-01 06:20] LABS: Device ROOM AIR; Modified Allen's Test Pass; Site Drawn LEFT RADIAL
--- NOTE | 2024-10-01 06:22 | ED.GENADULT ---
HPI - General Adult General Chief complaint: Fall <Herbie Smart MD - Last Filed: 10/01/24 06:23> Stated complaint: Fall-rolled out of bed <Herbie Smart MD - Last Filed: 10/01/24 06:23> Time Seen by Provider: 10/01/24 05:48 <Herbie Smart MD - Last Filed: 10/01/24 06:23> History of Present Illness HPI narrative: Patient is a 69-year-old gentleman who presents emergency department with chief complaint of ground level fall. Patient has history of COPD exacerbations TIAs has had a prior stroke and the family reports that he has been falling more frequently and reports that over the last couple of weeks he has fallen 3 times the patient has had episodes of hypercapnic respiratory failure and today fell and landed on his right side family reports that he did strike his head and reports that he had pain in his right wrist and right hip <Herbie Smart MD - Last Filed: 10/01/24 06:23> Related Data Allergies/adverse reactions: Allergies Allergy/AdvReac Type Severity Reaction Status Date / Time No Known Allergies Allergy Verified 09/07/24 21:05 <Herbie Smart MD - Last Filed: 10/01/24 06:23> Review of Systems Review of Systems: A 10 system review of systems was completed on the patient and is negative except for what is stated in the HPI. Nursing and ancillary documentation was reviewed. <Herbie Smart MD - Last Filed: 10/01/24 06:23> [facility] Past Medical History Medical History: Medical History Subclinical hyperthyroidism Alcoholism Diabetes mellitus with peripheral autonomic neuropathy Insomnia COPD (chronic obstructive pulmonary disease) HTN (hypertension) <Herbie Smart MD - Last Filed: 10/01/24 06:23> Family History Family History: Family History Sibling Diabetes mellitus Mother Hypertension Father Liver failure <Herbie Smart MD - Last Filed: 10/01/24 06:23> Social History Social History: Social History Smoking packs per day: 1 Smoking cigarettes per day: 20.0 Years smoked: 50 Smoking pack-years: 50.00 Smoking status: Current every day smoker Tobacco type: cigarettes Second hand tobacco smoke exposure: Yes Alcohol intake: current Drinks per week: 4 Substance use: never Substance use type: does not use Do You Feel Safe in your Home?: Yes Lack of Transportation: No Lack of Food: Often True Current Housing: I Have Housing Concerned About Future Housing: No Difficulty Paying Gas/Electric Bills: No Difficulty Paying for Meds: No Currently Unemployed: No Education: High School Diploma/GED Difficulty w/ Childcare or Family Care: No Living arrangements: alone Occupation/Education: unemployed Additional occupation/education comments: Disabled Gender identity (if verbalized by the patient): Male Spiritual care concerns: No <Herbie Smart MD - Last Filed: 10/01/24 06:23> Exam Narrative: GENERAL: Well-appearing, well-nourished, and in no acute distress. HEAD: Normocephalic, atraumatic. EYES: PERRLA and EOMI. ENT: Nares clear, no rhinorrhea or epistaxis. Mucous membranes moist. NECK: Supple. CHEST: Clear to auscultation. No respiratory distress. HEART: Regular rate and rhythm. No murmur heard. Normal peripheral pulses. ABDOMEN: Soft, nontender, nondistended, normal active bowel sounds. EXTREMITIES: Normal range of motion right upper extremity is contracted. No edema. SKIN: Warm, dry, no rash. NEURO: No focal deficits. Alert and oriented x3. PSYCH: Normal mood and affect. <Herbie Smart MD - Last Filed: 10/01/24 06:23> Course Vital Signs Vital signs: Vital Signs Temperature 98.4 F 10/01/24 05:37 Pulse Rate 89 10/01/24 05:37 Respiratory Rate 22 H 10/01/24 05:37 Blood Pressure 172/97 H 10/01/24 05:37 Pulse Oximetry 98 10/01/24 05:37 Oxygen Delivery Room Air 10/01/24 05:37 Temperature 98.5 F 10/01/24 16:00 Pulse Rate 76 10/01/24 16:25 Respiratory Rate 20 10/01/24 16:25 Blood Pressure 149/84 H 10/01/24 16:00 Pulse Oximetry 100 10/01/24 16:00 Oxygen Delivery Nasal Cannula 10/01/24 11:15 Oxygen Flow Rate 2 10/01/24 11:15 <Herbie Smart MD - Last Filed: 10/01/24 06:23> Vital Signs Temperature 98.4 F 10/01/24 05:37 Pulse Rate 89 10/01/24 05:37 Respiratory Rate 22 H 10/01/24 05:37 Blood Pressure 172/97 H 10/01/24 05:37 Pulse Oximetry 98 10/01/24 05:37 Oxygen Delivery Room Air 10/01/24 05:37 Temperature 98.5 F 10/01/24 16:00 Pulse Rate 76 10/01/24 16:25 Respiratory Rate 20 10/01/24 16:25 Blood Pressure 149/84 H 10/01/24 16:00 Pulse Oximetry 100 10/01/24 16:00 Oxygen Delivery Nasal Cannula 10/01/24 11:15 Oxygen Flow Rate 2 10/01/24 11:15 <Markus Zacarais MD - Last Filed: 10/01/24 19:12> Medical Decision Making MDM Narrative Medical decision making narrative: 69-year-old male presents to the emergency department for evaluation for increased falls and increased shortness of breath. Patient is not on oxygen but does have 2 L O2 requirement. Patient is currently afebrile with no leukocytosis hemoglobin of 13.8. INR is 1.3. ABG did confirm hypoxia with a ox hemoglobin of 87%. Patient does have an elevated troponin of 0.044 patient does have history of elevated troponins this is not far from his previous baseline. Repeat troponins are pending. Patient does have an elevated Pro BNP 1100 this is higher than his typical values. Patient was negative for influenza RSV and for COVID. <Markus Zacarias MD - Last Filed: 10/01/24 19:12> Differential Diagnosis Differential Diagnosis: COVID, RSV, influenza, CHF, emphysema, COPD exacerbation <Markus Zacarias MD - Last Filed: 10/01/24 19:12> Vital Signs Vital Signs: Vital Signs Temperature 98.4 F 10/01/24 05:37 Pulse Rate 89 10/01/24 05:37 Respiratory Rate 22 H 10/01/24 05:37 Blood Pressure 172/97 H 10/01/24 05:37 Pulse Oximetry 98 10/01/24 05:37 Oxygen Delivery Room Air 10/01/24 05:37 Temperature 98.5 F 10/01/24 16:00 Pulse Rate 76 10/01/24 16:25 Respiratory Rate 20 10/01/24 16:25 Blood Pressure 149/84 H 10/01/24 16:00 Pulse Oximetry 100 10/01/24 16:00 Oxygen Delivery Nasal Cannula 10/01/24 11:15 Oxygen Flow Rate 2 10/01/24 11:15 <Herbie Smart MD - Last Filed: 10/01/24 06:23> Vital Signs Temperature 98.4 F 10/01/24 05:37 Pulse Rate 89 10/01/24 05:37 Respiratory Rate 22 H 10/01/24 05:37 Blood Pressure 172/97 H 10/01/24 05:37 Pulse Oximetry 98 10/01/24 05:37 Oxygen Delivery Room Air 10/01/24 05:37 Temperature 98.5 F 10/01/24 16:00 Pulse Rate 76 10/01/24 16:25 Respiratory Rate 20 10/01/24 16:25 Blood Pressure 149/84 H 10/01/24 16:00 Pulse Oximetry 100 10/01/24 16:00 Oxygen Delivery Nasal Cannula 10/01/24 11:15 Oxygen Flow Rate 2 10/01/24 11:15 <Markus Zacarias MD - Last Filed: 10/01/24 19:12> Lab Data Lab results reviewed: Yes I reviewed the patient's lab results. <Markus Zacarias MD - Last Filed: 10/01/24 19:12> Result diagrams: 10/01/24 06:22 10/01/24 06:22 <Herbie Smart MD - Last Filed: 10/01/24 06:23> Labs: Lab Results 10/01/24 Range/Units 06:22 WBC 6.8 (4.5-10.0) K/mm3 RBC 4.60 (4.6-6.20) M/mm3 Hgb 13.8 L (14.0-18.0) g/dL Hct 42.8 (42.0-52.0) % MCV 93.0 (80-100) fl MCH 30.0 (26-34) pg MCHC 32.2 (32-36) g/dl RDW 13.5 (11.5-14.5) % Plt Count 263 (150-375) k/mm3 MPV 10.0 (7.4-10.4) fl Immature Gran % (Auto) 0.7 H (0-0.5) % Neut % (Auto) 71.2 (45.5-73.1) % Lymph % (Auto) 16.1 L (18.3-44.2) % [place] % (Auto) 9.8 H (2.6-8.5) % Eos % (Auto) 1.8 (0-4.4) % Baso % (Auto) 0.4 (0.2-1.2) % Lymph # (Auto) 1.10 (0.9-3.2) K/mm3 [place] # (Auto) 0.7 H (0.1-0.6) K/mm3 Eos # (Auto) 0.1 (0-0.3) K/mm3 Baso # (Auto) 0.0 (0.0-0.1) K/mm3 Abs Immat Gran (auto) 0.05 H (0.00-0.031) K/mm3 Absolute Neuts (auto) 4.9 (1.3-6.7) K/mm3 Absolute Nucleated RBC 0.000 (0.0-0.012) K/mm3 Nucleated RBC % 0.0 (0.0-0.2) % PT 16.3 H (11.1-14.7) Seconds INR 1.3 APTT 27.5 (22.3-36.8) Seconds Sodium 140 (137-145) mmol/L Potassium 4.4 (3.4-5.0) mmol/L Chloride 102 (98-107) mmol/L Carbon Dioxide 31 H (22-30) mmol/L Anion Gap 7 (4-12) mmol/L BUN 8 L D (9-20) mg/dL Creatinine 0.90 (0.7-1.3) mg/dL Estim Creat Clear Calc 79 ml/min Estimated GFR > 60 (59 - ) Glucose 155 H (65-110) mg/dL Lactic Acid 1.1 (0.7-2.0) mmol/L Calcium 9.4 (8.4-10.2) mg/dL Magnesium 1.7 (1.6-2.3) mg/dL Total Bilirubin 0.6 (0.2-1.3) mg/dL AST 32 (17-59) U/L ALT 32 (6-50) U/L Alkaline Phosphatase 73 (38-126) U/L Troponin I 0.044 H* (0.000-0.034) ng/mL NT-Pro-B Natriuret Pep 1100 H (19.9-100) pg/mL Total Protein 7.0 (6.3-8.2) g/dL Albumin 3.7 (3.5-5.1) g/dL Influenza A (RT-PCR) Negative (Negative) Influenza B (RT-PCR) Negative (Negative) RSV (RT-PCR) Negative (Negative) SARS-CoV-2 RNA (RT-PCR) Negative (Negative) <Herbie Smart MD - Last Filed: 10/01/24 06:23> Lab Results 10/01/24 Range/Units 06:22 WBC 6.8 (4.5-10.0) K/mm3 RBC 4.60 (4.6-6.20) M/mm3 Hgb 13.8 L (14.0-18.0) g/dL Hct 42.8 (42.0-52.0) % MCV 93.0 (80-100) fl MCH 30.0 (26-34) pg MCHC 32.2 (32-36) g/dl RDW 13.5 (11.5-14.5) % Plt Count 263 (150-375) k/mm3 MPV 10.0 (7.4-10.4) fl Immature Gran % (Auto) 0.7 H (0-0.5) % Neut % (Auto) 71.2 (45.5-73.1) % Lymph % (Auto) 16.1 L (18.3-44.2) % [place] % (Auto) 9.8 H (2.6-8.5) % Eos % (Auto) 1.8 (0-4.4) % Baso % (Auto) 0.4 (0.2-1.2) % Lymph # (Auto) 1.10 (0.9-3.2) K/mm3 [place] # (Auto) 0.7 H (0.1-0.6) K/mm3 Eos # (Auto) 0.1 (0-0.3) K/mm3 Baso # (Auto) 0.0 (0.0-0.1) K/mm3 Abs Immat Gran (auto) 0.05 H (0.00-0.031) K/mm3 Absolute Neuts (auto) 4.9 (1.3-6.7) K/mm3 Absolute Nucleated RBC 0.000 (0.0-0.012) K/mm3 Nucleated RBC % 0.0 (0.0-0.2) % PT 16.3 H (11.1-14.7) Seconds INR 1.3 APTT 27.5 (22.3-36.8) Seconds Sodium 140 (137-145) mmol/L Potassium 4.4 (3.4-5.0) mmol/L Chloride 102 (98-107) mmol/L Carbon Dioxide 31 H (22-30) mmol/L Anion Gap 7 (4-12) mmol/L BUN 8 L D (9-20) mg/dL Creatinine 0.90 (0.7-1.3) mg/dL Estim Creat Clear Calc 79 ml/min Estimated GFR > 60 (59 - ) Glucose 155 H (65-110) mg/dL Lactic Acid 1.1 (0.7-2.0) mmol/L Calcium 9.4 (8.4-10.2) mg/dL Magnesium 1.7 (1.6-2.3) mg/dL Total Bilirubin 0.6 (0.2-1.3) mg/dL AST 32 (17-59) U/L ALT 32 (6-50) U/L Alkaline Phosphatase 73 (38-126) U/L Troponin I 0.044 H* (0.000-0.034) ng/mL NT-Pro-B Natriuret Pep 1100 H (19.9-100) pg/mL Total Protein 7.0 (6.3-8.2) g/dL Albumin 3.7 (3.5-5.1) g/dL Influenza A (RT-PCR) Negative (Negative) Influenza B (RT-PCR) Negative (Negative) RSV (RT-PCR) Negative (Negative) SARS-CoV-2 RNA (RT-PCR) Negative (Negative) <Markus Zacarias MD - Last Filed: 10/01/24 19:12> ABG Data ABG results: 10/01/24 06:10 Puncture Site Left radial ABG pH 7.421 ABG pCO2 41.5 ABG pO2 57.9 L ABG PO2/FiO2 Ratio 2.76 ABG HCO3 26.4 H ABG O2 Saturation 90.6 L ABG O2 Content 17.0 ABG Base Excess 1.7 A-a Gradient 42.1 Oxyhemoglobin 87.0 L* Total Hemoglobin 13.9 O2 Delivery Device Room air O2 Liters/Min Not Reportable FiO2 21 <Herbie Smart MD - Last Filed: 10/01/24 06:23> 10/01/24 06:10 Puncture Site Left radial ABG pH 7.421 ABG pCO2 41.5 ABG pO2 57.9 L ABG PO2/FiO2 Ratio 2.76 ABG HCO3 26.4 H ABG O2 Saturation 90.6 L ABG O2 Content 17.0 ABG Base Excess 1.7 A-a Gradient 42.1 Oxyhemoglobin 87.0 L* Total Hemoglobin 13.9 O2 Delivery Device Room air O2 Liters/Min Not Reportable FiO2 21 <Markus Zacarias MD - Last Filed: 10/01/24 19:12> Imaging Data Radiologist's impression: Impressions Cervical Spine CT 10/01/24 06:39 IMPRESSION: 1. No fracture. 2. Mild cervical spondylosis. Head CT 10/01/24 06:42 IMPRESSION: 1. Old infarcts in the brain. Chest X-Ray 10/01/24 06:59 IMPRESSION: 1. No acute cardiopulmonary disease. Wrist X-Ray 10/01/24 07:00 IMPRESSION: 1. No acute fracture. Hip/Pelvis X-Ray 10/01/24 07:01 IMPRESSION: 1. No acute fracture. <Markus Zacarias MD - Last Filed: 10/01/24 19:12> Discharge Plan Discharge Clinical Impression: Hypoxia, Elevated troponin, Episode of generalized weakness <Herbie Smart MD - Last Filed: 10/01/24 06:23> Patient Disposition: Still a Patient <Herbie Smart MD - Last Filed: 10/01/24 06:23> Condition: Serious <Herbie Smart MD - Last Filed: 10/01/24 06:23>
[2024-10-01 06:34] LABS: Basophils Percent Auto 0.4 % (0.2-1.2); Eosinophils Absolute Auto 0.1 K/mm3 (0-0.3); Eosinophils Percent Auto 1.8 % (0-4.4); Hematocrit 42.8 % (42.0-52.0); Hemoglobin 13.8 g/dL (14.0-18.0); Immature Granulocyte Absolute 0.05 K/mm3 (0.00-0.031); Immature Granulocyte Percent A 0.7 % (0-0.5); Lymphocytes Percent Auto 16.1 % (18.3-44.2); Mean Corpuscular HGB Conc 32.2 g/dl (32-36); Monocytes Absolute Auto 0.7 K/mm3 (0.1-0.6); Monocytes Percent Auto 9.8 % (2.6-8.5); Neutrophils Absolute Auto 4.9 K/mm3 (1.3-6.7); Neutrophils Percent Auto 71.2 % (45.5-73.1); Platelet Count Result 263 k/mm3 (150-375); Red Cell Distribution Width 13.5 % (11.5-14.5); White Blood Count 6.8 K/mm3 (4.5-10.0)
[2024-10-01 06:42] LABS: Lactic Acid Reflex 1.1 mmol/L (0.7-2.0)
[2024-10-01 06:44] LABS: INR 1.3; Prothrombin Time 16.3 Seconds (11.1-14.7)
[2024-10-01 06:45] LABS: Alanine Aminotransferase 32 U/L (6-50); Albumin Level 3.7 g/dL (3.5-5.1); Alkaline Phosphatase 73 U/L (38-126); Anion Gap 7 mmol/L (4-12); Aspartate Amino Transferase 32 U/L (17-59); Bilirubin,Total 0.6 mg/dL (0.2-1.3); Blood Urea Nitrogen 8 mg/dL (9-20); Calcium 9.4 mg/dL (8.4-10.2); Carbon Dioxide 31 mmol/L (22-30); Chloride 102 mmol/L (98-107); Estimated CRCL calculation 79 ml/min; Estimated Glomerular Filt Rate > 60; Glucose 155 mg/dL (65-110); Magnesium 1.7 mg/dL (1.6-2.3); Partial Thromboplastin Time 27.5 Seconds (22.3-36.8); Potassium 4.4 mmol/L (3.4-5.0); Sodium 140 mmol/L (137-145)
--- OUTSIDE RECORDS SUMMARY | 2024-10-01 06:51 | XMS_ITS | Encounter Summary ---
Author Organization [facility] Address [address] [place] [address] Phone Care Team Providers Care Project Management Manager Name Role Phone Romaine Frank DO Primary Care Provider Vineet Conklin RESOURCE RO[employer] SPECIAL EDUCATION TEACHER Primary Care Provider [phone] Cecile Terrell [employer]UCATION TE[employer]ER Primary Care Provider [phone] Encounter Details Date Type Department Care Team (Late st Contact Info) Description 05/13/2014 Orders Only [facility] OPH CLINCONV Provider, MD Nereyda [address] [place] [id number] Social History Tobacco Use Types Packs/Day Years Used Date Smoking Tobacco: Never Assessed Sex and Gender Information Value Date Recorded Sex Assigned at Not on file Legal Sex Male 9:22 AM [employer] Gender Identity Not on file Sexual Orientation [...] on filedocumented in this encounter Care Teams Project Management Manager Relationship Specialty Start Date End Date Romaine Frank DO [address] [place] [address] [address]E [address] [place] [address] PCP - General Cardiovascular Disease 09/14/19 0 Vineet Conklin NP [address] [facility] [address] [place] [address] PCP - General Internal Medicine 12/09/19 03/12/21 Cecile Terrell NP [address] [address] PCP - General Family Medicine 03/13/21 documented as of this encounter
--- OUTSIDE RECORDS SUMMARY | 2024-10-01 06:51 | XMS_ITS | Data Portability ---
Author Organization [facility], Main Office Address [address] [place] [address] Assessment Encounter Date Assessment Date Assessment LastModified by Organization Details LastModified Time 11/04/2022 11/04/2022 This note is dictated and transcribed by [employer]. Ware Finisher variances may occur. Despite proofreading, typographical errors [...] cream [address] [id number], [address] [place], [place], [id number], 3 12:50:54 ketoconazol e 2 % topical cream 2022 023 [email or web address] [facility] #[id number], [address] [place], [place], [id number], 4 08:37:08 Patient TargetsNo targets recorded. Patient InstructionsNo instructions recorded. Reason for Referral None Reported. Problems Name Problem SNOMED Code Status Onset Date Resolution Date Notes Provider Name and Address Organization Details Recorded Time Hypercholeste rolemia 27624851 Active 2017 Not Available [facility] 3 20:19:51 Dry skin 64645339 Active 2019 Not Available [facility] 3 20:19:51 Foot callus 368637016 Active 2019 Not Available [facility] 3 20:19:51 Dry skin dermatitis 610256262 Active 2019 Not Available [facility] 3 20:19:51 Bronchitis 61348324 Active 2017 Not Available [facility] 3 20:19:51 Depressive disorder 27516806 Active 2017 Not Available [facility] 3 20:19:51 Arthritis 2373270 Active 2017 Not Available [facility] 3 20:19:51 Onychomycosis of toenails 027088629 Active 2017 Not Available [facility] 3 20:19:51 Diabetic peripheral neuropathy 068265529 Active 2017 Not Available [facility] 3 20:19:52 Foot pain 96384517 Active 2017 Not Available [facility] 3 20:19:52 Tinea pedis 8751121 Active 2019 Not Available [facility] 3 20:19:52 Diabetes mellitus 19065501 Active 2017 Not Available [facility] 3 20:19:52 Severe dry skin 211041537 Active 2022 Markus Kerr DPM [address], [place], [address] , [employer] 3 12:28:19 Notes:eye problems, difficul ty sleeping, balance problems, numbness or tingling, shortness of breath, excessive thirst, sleep apnea, vision problems Problem Notes None recorded. Procedures Surgical History Date Name Laterality Status Provider Name and Address Organization Details Recorded Time 3 Nail Debridement completed Markus Kerr DPM [address], [place], [address], [employer] 11/04/2022 14:49:25 3 Callus Debridement, One completed Markus Kerr DPM [address], [place], [address], [employer] 11/04/2022 14:49:17 Imaging Results None recorded. Procedure [...] Date Recorded Body mass index (BMI) Body height Body weight Provider Name and Address Organization Details Last Updated DateTime 10/09/2020 20.7 kg/m2 185.42 cm 30038 g Not Available [facility] 09/25/2022 20:19:30 Date Recorded Body mass index (BMI) Body height Heart rate Body weight Systolic blood pressure Diastolic blood pressure Provider Name and Address Organization Details Last Updated DateTime 20.7 kg/m2 185.42 cm 56 /min 12091 g 110 mm[Hg] 90 mm[Hg] Not Available [facility] 3 20:19:29 Date Recorded Body height Provider Name an d Address Organization Details Last Updated DateTime 06/14/2021 185.42 cm Not Available [facility] 3 20:19:29 Date Recorded Heart rate Respiratory rate Oxygen saturation Oxygen saturation in Arterial blood by Pulse oximetry Systolic blood pressure Diastolic blood pressure Provider Name and Address Organization Details Last Updated DateTime 3 80 /min 18 /min 98 % 98 % 123 mm[Hg] 66 mm[Hg] Odalys Sierra [place] [employer] [facility] 3 12:02:15 Social History Question Answer Notes LastModified by Organizat ion Details LastModified Time Tobacco Smoking Status Current Every Day Smoker RITO Yoon, [facility] [employer] [facility] 03/08/2024 08:39:24 What Is Your Level Of [...] SNOMED-CT Code Diagnosis ICD10 Code Diagnosis Note [id number] [facility] [place] [address] [place] [address] 10/09/2020 00:00:00 10/09/2020 09:57:58 [id number] [facility] [place] [address] [place] [address] 03/05/2021 00:00:00 03/05/2021 14:48:07 [id number] [facility] [place] [address] [place] [address] 06/14/2021 00:00:00 06/14/2021 20:46:13 [id number] Markus Kerr DPM [facility] [place] [address] [place] [address] 11/04/2022 11:56:31 11/04/2022 15:22:57 Severe dry skin 583209656 L85.3 Rx Amlactin newDaily foot hygieneFol low-up 3 months Onychomyco sis of toenails 454451729 B35.1 Educated on conditionN ails 1 through 10 were debrided with sharp mechanical debridemen t without incident. Nails were debrided and greater than 50% length and thickness where needed. Diabetic p eripheral neuropathy [id number] E11.40 Patient educated on neuropathy , diabetes, [...] [place] Member ID Guarantor Name 11/04/2022 1 [place] Philip Barron [id number] Philip Barron 11/04/2022 1 [place] [employer] [facility] [employer] Philip Barron [id number] Philip Barron Notes Date Note Type Note [...] other pedal complaints. Markus Kerr DPM [address] [facility] [address], [place], [address], [place] [employer] 11/04/2022 14:50:14
--- OUTSIDE RECORDS SUMMARY | 2024-10-01 06:51 | XMS_ITS | Patient Health Summary ---
Author Organization [facility] Address [address] [place] [address] Care Team Providers Care Residential Treatment Staff Name Role Phone Unknown, Provider Primary Care Provider Unavaila ble Note from [facility],non-owned Affiliates and Associated Physician Practices is amultiple site organization consisting of ambulatory clinics and hospital sitesin [place], [place], [place] and [place]. This disclosure is being madepursuant to the Care Everywhere program and may not contain all information available regarding this patient. 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 [...] file Gender Identity Male 09/11/2020 8:16 AM TOURIST AGENT Sexual Orientation Not on file Last Filed Vital Signs Vital Sign Reading Time Taken Comments Blood Pressure 143/89 08/19/2023 3:24 PM TOURIST AGENT Pulse 71 08/19/2023 3:24 PM TOURIST AGENT Temperature 36.6 C (97.9 F) 08/19/2023 3:24 PM TOURIST AGENT Respiratory Rate 18 08/19/2023 3:24 PM TOURIST AGENT Oxygen Saturation 98% 08/19/2023 3:24 PM TOURIST AGENT Inhaled Oxygen Concentration - - Weight 110.5 kg (243 lb 9.6 oz) 08/19/2023 3:24 PM TOURIST AGENT Height 185.4 cm (6' 1 ) 08/19/2023 3:24 PM TOURIST AGENT Body Mass Index 32.14 08/19/2023 3:24 PM TOURIST AGENT Medical Devices Implanted Type Area Boiler House Supervisor Device Identifier Shelf Expiration Date Model / Serial / Lot Graft Tissue Avance Nrv 30mm Algrf 4-5mm Implanted:Qty: 1 on 09/12/2020 by Per Glez MD at [facility] Right: Arm [employer] 05/27/2023 [id number] / / [id number] Description:CC Procedures * VAS LEFT ARTERIAL DUPLEX [...] 07/04/2021) * ENDOTRACHEAL TUBE NOTE(Performed 07/04/2021) * MS REVISE MEDIAN N/CARPAL TUNNEL SURG(Performed 07/04/2021) Performed [...] 09/13/2020) Performed for Atrial fibrillation, unspecified type ([facility]) * MAGNESIUM BLOOD(Performed 09/13/2020) * CBC W AUTO DIFFERENTIAL(Performed 09/13/2020) * BASIC METABOLIC PANEL (CALCIUM TOTAL)(Performed 09/13/2020) * GLUCOSE - POINT OF CARE(Performed 09/12/2020) * GLUCOSE - POINT OF CARE(Performed 09/12/2020) * GLUCOSE - POINT OF CARE(Performed 09/12/2020) * ENDOTRACHEAL TUBE NOTE(Performed 09/12/2020) * MS MUSC/TENDON REPAIR EACH; ARM/ELBOW(Performed 09/12/2020) Performed for [...] 09/10/2020) * ENDOTRACHEAL TUBE NOTE(Performed 09/10/2020) * MS EXPLORE WOUND,EXTREMITY(Performed 09/10/2020) Performed for Disorder * [...] LEFT ARTERIAL DUPLEX LE (09/08/2023 10:47 AM TOURIST AGENT) Anatomical Region Laterality Modality Lower Extremity Intravascular Ul trasound 09/08/2023 9:36 AM TOURIST AGENT Narrative Procedure Note Rob Yancey MD - 09/11/2023 Jono Morgan MD VASCULAR LAB ORDER DERRICK * VAS ARTERIAL ANKLE ARM INDEX (09/08/2023 10:47 AM TOURIST AGENT) Anatomical Region Laterality Modality Ankle / Foot, Upper Extremity In travascular Ultrasound 09/08/2023 9:54 AM TOURIST AGENT Narrative Procedure Note Rob Yancey MD - 09/09/2023 Authorizing Provider Result Kate Morgan MD VASCULAR LAB ORDER DERRICK * VAS CAROTID DUPLEX BILATERAL (09/08/2023 10:36 AM TOURIST AGENT) Anatomical Region Laterality Modality Neck Intravascular Ul trasound 09/08/2023 9:07 AM TOURIST AGENT Narrative Procedure Note Rob Yancey MD - [...] evaluation, please review the evaluation forms in [facility]. For details on monitored clinical parameters during the intra-service sedation time, please review the procedure nurse documentation in [facility]. Sarwat De Leon MD have personally [...] angiography to further evaluate degree of stenosis. Carbon Setter: Clinical Medical Assistant(s): Andrew Root Vessels: Ultrasound Guided Access of Radial Artery Right Radial Artery Angiogram Right Common Carotid Artery Angiogram: Cervical and Cerebral Left Subclavian Artery Angiogram: Cervical and Cerebral Left Common Carotid Artery Angiogram: Cervical and Cerebral Right Subclavian Artery Angiogram: Cervical and Cerebral Anesthesia: Dr. oJhn De Leon was present for the entire duration of the procedure. Moderate sedation on this adult patient was ordered by the marsh buggy operator, administered intravenously in my presence, and [...] patient evaluation, please review the evaluation in [facility]. For details on monitored clinical parameters during the intra-service sedation time, please review the procedure nurse documentation in [facility]. Procedural detail: The risks, benefits, and [...] Following a series of exchanges, a 5 Sinhala 11 cm Glidesheath slender was placed in the radial artery. A radial angiogram was performed through the sheath. A spasmolytic cocktail containing 3000u heparin, 2.5mg verapamil, and 200mcg of nitroglycerin was administered. A 5 Sinhala Glidecath Golden 2 diagnostic catheter along with [...] angiography to further evaluate degree of stenosis. Carbon Setter: Clinical Medical Assistant(s): Andrew oRot Vessels: Ultrasound Guided Access of Radial Artery [...] this adult patient was ordered by the marsh buggy operator, administered intravenously in my presence, and [...] patient evaluation, please review the evaluation in [facility]. For details on monitored clinical parameters during the intra-service sedation time, please review the procedure nurse documentation in [facility]. Procedural detail: The risks, benefits, and [...] needle. Followinga series of exchanges, a 5 Sinhala 11 cm Glidesheath slender was placed inthe radial artery. A radial angiogram was performed through the sheath. A spasmolytic cocktail containing 3000u heparin, 2.5mg verapamil, [id number] of nitroglycerin was administered. A 5 Sinhala Glidecath Golden 2 diagnostic catheter along with [...] the arterial system.Hemostasis was achieved using a Shopow radial band closure device. Hemostasis was immediate [...] intravenously in my presence, and monitored [facility] as an independent trained observer who was present throughout the procedure. The following parameters were monitored: oxygen saturation, heart rate, blood pressure, and response to care. For details on pre-moderate sedation and post-moderate sedation patient evaluation,please review the evaluation forms in [facility]. For details on monitored clinical parameters during the intra-service sedation time, please review the procedure nurse documentation in [facility]. ISarwat MD have personally reviewed and [...] Type Cap Fingerstick 2022 1:50 PM CDT [facility] Blood BLOOD SPECIMEN / Unknown 12/16/2022 8:49 AM CDT 12/16/2022 1:50 PM CDT Sarwat Lanza MD LAB - POINT OF CARE ORDERABLES Performing Organization Address [facility] Co de Phone Number [address] [phone], [facility] [phone] * PT-INR [facility] (12/16/2022 8:35 AM CDT) Only the most recent of2 resultswithin the time period is included. PT 14.4 12.1 - 14.8 Seconds 12/16/2022 9:26 AM CDT [facility] INR 1.1 See Comment 12/16/2022 9:26 AM T [facility] Comment:The suggested therap eutic range for standard coumadin (warfarin) therapy is an INR of 2.0-3.0. For high-risk patients (Mechanical Mitral Valve Prosthesis, etc.), the suggested prophylactic therapeutic range is an INR of 2.5-3.5. Blood BLOOD SPECIMEN / Unknown Venipuncture / Unknown 12/16/2022 8:35 AM CDT 12/16/2022 9:02 AM CDT Fanta Grubbs PA-C LAB - COAGULATION ORDERABLES Performing Organization Address [facility]/ZIP Co de Phone Number [address] [phone], [facility] [phone] * (ABNORMAL) CBC W AUTO DIFFERENTIAL (12/16/2022 8:35 AM CDT) Only the most recent of5 resultswithin the time period is included. WBC 7.6 3.5 - 10.5 10 3/uL 12/16/2022 9:06 AM CDT [facility] RBC 4.53 4.30 - 5.70 10 6/uL 12/16/2022 9:06 AM [facility] Hemoglobin 12.9 12.0 - 17.6 g/dL 12/16/2022 9:06 AM [facility] Hematocrit 40.6 35.2 - 51.7 % 12/16/2022 9:06 AM [facility] MCV 89.6 80.7 - 98.3 fL 12/16/2022 9:06 AM [facility] MCH 28.5 26.7 - 34.0 pg 12/16/2022 9:06 AM [facility] MCHC 31.8 30.8 - 35.9 g/dL 12/16/2022 9:06 AM [facility] RDW-SD 46.0 36.0 - 50.0 fL 12/16/2022 9:06 AM [facility] RDW-CV 14.0 11.2 - 14.8 % 12/16/2022 9:06 AM [facility] Platelet Count 214 150 - 400 10 3/uL 12/16/2022 9:06 AM [facility] MPV 10.5 9.4 - 12.9 fL 12/16/2022 9:06 AM [facility] nRBC Absolute 0.00 0 10 3/uL 12/16/2022 9:06 AM [facility] nRBC Auto 0.0 0 /100 WBC 12/16/2022 9:06 AM [facility] Neutrophils % 70.7(H) 35.0 - 70.0 % 12/16/2022 9:06 AM [facility] Lymphocytes % 19.7(L) 20.0 - 43.0 % 12/16/2022 9:06 AM [facility] Monocytes % 6.4 5.0 - 13.0 % 12/16/2022 9:06 AM [facility] Eosinophils % 2.1 0.0 - 6.0 % 12/16/2022 9:06 AM [facility] Basophil % 0.4 0.0 - 2.0 % 12/16/2022 9:06 AM [facility] Neutrophils Absolute 5.39 1.60 - 7.00 10 3/uL 12/16/2022 9:06 AM [facility] Lymphocyte Absolute 1.50 1.10 - 3.90 10 3/uL 12/16/2022 9:06 AM [facility] Monocytes Absolute 0.49 0.26 - 1.07 10 3/uL 12/16/2022 9:06 AM [facility] Eosinophils Absolute 0.16 0.00 - 0.47 10 3/uL 12/16/2022 9:06 AM [facility] Basophils Absolute 0.03 0.00 - 0.08 10 3/uL 12/16/2022 9:06 AM [facility] Immature Granulocytes % 0.7 0.0 - 1.0 % 12/16/2022 9:06 AM [facility] Immature Granulocytes Absolute 0.05 12/16/2022 9:06 AM [facility] Blood BLOOD SPECIMEN / Unknown Venipuncture / Unknown 12/16/2022 8:35 AM CDT 12/16/2022 9:02 AM CDT Fanta Grubbs PA-C LAB - HEMATOLOGY ORDERABLES [facility] [address] [place] [phone], [facility] [phone] * (ABNORMAL) BASIC METABOLIC PANEL (CALCIUM TOTAL) (12/16/2022 8:35 AM CDT) Only the most recent of5 resultswithin the time period is included. BUN 10 7 - 26 mg/dL 12/16/2022 9:29 AM [facility] Creatinine 0.94 0.71 - 1.16 mg/dL 12/16/2022 9:29 AM [facility] Sodium 143 136 - 145 mmol/L 12/16/2022 9:29 AM [facility] Potassium 4.4 3.5 - 4.5 mmol/L 12/16/2022 9:29 AM [facility] Chloride 105 98 - 107 mmol/L 12/16/2022 9:29 AM [facility] CO2 27 22 - 29 mmol/L 12/16/2022 9:29 AM [facility] Glucose 129(H) 70 - 115 mg/dL 12/16/2022 9:29 AM [facility] Calcium 9.3 8.4 - 10.2 mg/dL 12/16/2022 9:29 AM [facility] Anion Gap 15 8 - 18 12/16/2022 9:29 AM [facility] BUN/Creatinine Ratio 11 7 - 23 12/16/2022 9:29 AM [facility] Osmolality Calculated 297 270 - 300 mOsm/kg 12/16/2022 9:29 AM [facility] eGFR by CKD-EPI 90 >=90 mL/min/1.7 3 m2 12/16/2022 9:29 AM [facility] Blood BLOOD SPECIMEN / Unknown Venipuncture / Unknown 12/16/2022 8:35 AM CDT 12/16/2022 9:02 AM CDT Fanta Grubbs PA-C LAB - CHEMISTRY O RDERABLES Performing Organization Address City/State/[facility] Co de Phone Number [facility] [address] [place] [phone], [facility] [phone] * CARDIAC RHYTHM STRIP ORDER (07/09/2021 5:42 PM TOURIST AGENT) Only the most recent of2 resultswithin the time period is included. Narrative 07/09/2021 5:42 PM TOURIST AGENT Ordered by an unspecified provider. Scanned Document CARDIAC SERVICES ORD ERABLES * ETT LINE PERFORMABLE (07/04/2021 11:28 AM TOURIST AGENT) Narrative Mckenzie Hagen APRN-CRNA - 07/04/2021 11:28 AM TOURIST AGENT Mckenzie Hagen APRN-CRNA 07/04/2021 11:29 AM Endotracheal Tube Placement: Patient Location: OR. Intubation Event Date/Time: 07/04/2021 11:18 AM Procedure: intubation ([id number]). Procedure Section: Sedation: under general anesthesia. Indications [...] CDT Per Marrufo MD 05/31/2021 3:[address], [address] [phone] Patient: Philip Barron V #: Physician: Per Marrufo MD Sex: Male ID#: [id number] Ref Phys: Angela Garvey. PA-Med : 1955 Date: 05/31/2021 Bus Inspector: Jona Cool Patient Complaints: The patient is [...] of brachial plexopathy. Per Marrufo MD Diplomate, [place] [employer] and Neu[employer] Board Certified [...] ORDERABLES * APHERESIS/TRANSFUSION ORDER (09/18/2020 6:59 PM TOURIST AGENT) Narrative 09/18/2020 6:59 PM TOURIST AGENT Ordered by an unspecified provider. Scanned Document NURSING - VITAL SIGN S AND ASSESSMENT * EKG 12-LEAD (09/13/2020 6:03 AM TOURIST AGENT) Ventricular Rate 73 BPM [facility] Atrial Rate 73 BPM [facility] P-R Interval 138 ms [facility] QRS Duration ms 90 ms [facility] Q-T Interval ms 412 ms [facility] QTC Calculation (Bezet) 453 ms [facility] Calculated R Irrigon 31 degrees [facility] Calculated T Irrigon 72 degrees [facility] Interpretation EKG NORMAL SINUS RHYTHM NONSPECIFIC T WAVE ABNORMALITY ABNORMAL ECG Confirmed by MD Claudia, Iker ([id number]) on 09/13/2020 7:50:42 AM [facility] MUSE 09/13/2020 6:03 AM TOURIST AGENT 09/13/2020 7:50 AM TOURIST AGENT Fer Jasso DO ECG ORDERABLES Performing Organization Address City/[facility]/ZIP Co de Phone Number [facility] MUSE * MAGNESIUM BLOOD (09/13/2020 2:51 AM TOURIST AGENT) Only the most recent of3 resultswithin the time period is included. Magnesium 2.0 1.6 - 2.6 mg/dL 09/13/2020 4:42 AM TOURIST AGENT [facility] Blood BLOOD SPECIMEN / Unknown Lab Venipuncture / Unknown 09/13/2020 2:51 AM TOURIST AGENT 09/13/2020 4:13 AM TOURIST AGENT Fer Jasso DO LAB - CHEMISTRY ORDE RABLES Performing Organization Address City/[facility] Co de Phone Number [facility] [address] [phone] * ETT LINE PERFORMABLE (09/12/2020 1:04 PM TOURIST AGENT) Narrative Hayley Johnston APRN-CRNA - 09/12/2020 1:04 PM TOURIST AGENT Hayley Johnston APRN-CRNA 09/12/2020 1:04 PM Endotracheal Tube Placement: Patient Location: OR. Intubation Event Date/Time: 09/12/2020 12:21 PM Procedure: intubation ([id number]). Procedure Section: Sedation: under general anesthesia. Indications [...] RBC UNIT(S), 1 Units (09/12/2020 2:17 AM TOURIST AGENT) Only the most recent of2 resultswithin the time period is included. [facility] Unit Description N/A [facility] Blood Bank BLOOD SPECIMEN / Unknown 09/10/2020 11:30 AM TOURIST AGENT Sergio Vela DO LAB - BLOOD BANK ORD ERABLES Performing Organization Address [facility]/ZIP Co de Phone Number [facility] [address] [place] [address], [facility] [phone] * PHOSPHORUS BLOOD (09/12/2020 1:58 AM TOURIST AGENT) Only the most recent of2 resultswithin the time period is included. [facility] Phosphorus 3.7 2.3 - 4.7 mg/dL 09/12/2020 2:47 AM TOURIST AGENT [facility] Blood BLOOD SPECIMEN / Unknown Venipuncture / Unknown 09/12/2020 1:58 AM TOURIST AGENT 09/12/2020 2:26 AM TOURIST AGENT Tomer Nolasco MD LAB - CHEMISTRY JANETTE SANDHU [facility] [address] [place] [address] * (ABNORMAL) HEMOGLOBIN A1C (09/11/2020 8:14 AM TOURIST AGENT) [facility] Hemoglobin A1c 7.1(H) 4.4 - 6.3 % 09/11/2020 10:41 AM [facility] Estimated Average Glucose 157 mg/dL 09/11/2020 10:41 AM [facility] Comment: HbA1c Interpretation: Treatment target values recommended by ADA and other clinical organizations should be used to evaluate metabolic control in patients. Treatment Target Values: Normal : < 5.7% Pre-diabetes: 5.7-6.4% Diabetes: Equal to or greater than 6.5% Reference: [place] [employer] Standards of Care in Diabetes -2014 In patients 70 years and older consider HbA1c target range of 7.0-7.5% Reference: Diabetes Mellitus in Older People: Position Statement on behalf of the International Association of Gerontology and Geriatrics (IAGG), the Diabetes Working Alliance Party for Older People (EDWPOP), and the International Task Force of Experts in Diabetes. Mikhail Godinez, et al. J [place] [employer]. 2012 Test results diagnostic of diabetes should be repeated for confirmation. The Sebia Capillary 2 assay for the measurement of HbA1c is a National Glycohemoglobin Standardization Program (NGSP)certified method. Blood BLOOD SPECIMEN / Unknown Venipuncture / Unknown 09/11/2020 8:14 AM TOURIST AGENT 09/11/2020 8:18 AM TOURIST AGENT Narrative [facility] - 09/11/2020 10:41 AM TOURIST AGENT note^<nlbl:demographic_changed> Margarita Plata APRN-ELECTROTYPE SERVICER LAB - CHEMISTRY ORDERABLES Performing Organization Address City/State/[facility] Co de Phone Number [address] [phone], [facility] [phone] * XR CHEST 1VW PORTABLE (09/11/2020 4:37 AM TOURIST AGENT) Only the most recent of2 resultswithin the time period is included. Anatomical Region Laterality Modality Chest Radiographic Emilee ging 09/11/2020 8:47 AM TOURIST AGENT Impressions 09/11/2020 2:46 PM TOURIST AGENT FINDINGS/IMPRESSION: There is a small left pleural effusion with associated compressive atelectasis. There is mild bilateral lower lung field opacities, likely representing atelectasis and/or pneumonia. There is no pneumothorax. The cardiomediastinal silhouette is normal. The visible bony thorax is intact. Dictated by Alec Dumas MD (vice president payer). I, Dr. HOPE KIM have personally reviewed and interpreted this examination/study. This report was electronically signed by HOPE KIM on 09/11/2020 2:46 PM . Narrative 09/11/2020 2:46 PM TOURIST AGENT EXAMINATION: XR CHEST 1VW PORTABLE HISTORY: S41.111A: [...] thorax isintact. Dictated by Alec Dumas MD (vice president payer). I, Dr. HOPE KIM have personally reviewed and interpreted this examination/study. This report was electronically signed by HOPE KIM on 12:46 PM . Sergio Gretchen Mirian DO DIAGNOSTIC IMAGING O RDERABLES * SARS-COV-2 (COVID-19)+INFLU A+B PCR RAPID (09/10/2020 6:30 PM TOURIST AGENT) COVID-19 PCR Not detected Not detected 09/10/19 9:39 PM TOURIST AGENT [facility] Influenza A Rapid KIAH Not Detected Not Detected 09/10/2020 9:39 PM TOURIST AGENT [facility] Influenza B KIAH Rapid Not Detected Not Detected 09/10/2020 9:39 PM TOURIST AGENT [facility] Microbiology SPECIMEN FROM NASOPHARYNGEAL STRUCTURE / Unknown Collection / Unknown 09/10/2020 6:30 PM TOURIST AGENT 09/10/2020 9:11 PM TOURIST AGENT Narrative [facility] - 09/10/2020 9:39 PM TOURIST AGENT Influenza assay performed by Nucleic Acid Amplification. [...] acid amplification assay performance was validated by [facility]. This test has been authorized by the [...] Vela DO LAB - MICROBIOLOGY O RDERABLES [address] [address], [facility] [phone] * 4 Units (09/10/2020 1:45 PM TOURIST AGENT) Unit Description LR Whole BLood [facility] Unit ABO O [facility] Unit Rh POS [facility] Product Number E0033 [facility] B LOOD [facility] Unit Donor # [id number] [facility] Unit Status released [facility] BLOO D BANK LAB Product Code [id number] [facility] BLO OD [facility]ANK LAB Blood Type Barcode 5100 [facility] Expiration Date [id number] S BLOOD BANK LAB Unit Description LR Whole BLood [facility] Unit ABO O [facility] Unit Rh POS [facility] Product [facility] E0033 [facility]OD [facility] Unit Donor # [id number] [facility] Unit Status released [facility] Product Code [id number] [facility] Blood Type Barcode 5100 [facility] Expiration Date [id number] S BLOOD BANK LAB Unit Description LR Whole BLood [facility] Unit ABO O [facility] Unit Rh POS [facility] Product Number E0033 [facility]OD [facility] Unit Donor # [id number] [facility] Unit Status released [facility] BL[facility] D [facility] Product Code [id number] [facility] B[facility] OD [facility] Blood Type Barcode 5100 [facility] Expiration Date [id number] S BLOOD BANK LAB Unit Description LR Whole BLood [facility] Unit ABO O [facility] Unit POS [facility] Product Number E0033 [facility]OD [facility] Unit Donor # [id number] [facility] Unit Status released [facility] D [facility] Product Code [id number] [facility] OD [facility] Blood Type Barcode 5100 [facility] Expiration Date [id number] S BLOOD BANK LAB Unit Description LR Whole BLood [facility] Unit ABO O [facility] Unit POS [facility] Product Number E0033 [facility] Unit Donor # [id number] [facility] Unit Status transfused [facility] OD [facility] Product Code [id number] [facility] Blood Type Barcode 5100 [facility] Expiration Date [id number] S BLOOD BANK LAB Unit Description LR Whole BLood [facility] Unit ABO O [facility] Unit POS [facility] Product Number E0033 [facility]OD [facility] Unit Donor # [id number] [facility] Unit Status released [facility] D [facility] Product Code [id number] [facility] Blood Type Barcode 5100 [facility] Expiration Date [id number] S BLOOD BANK LAB Unit Description LR Whole BLood [facility] Unit ABO O [facility] B[facility] Unit Rh POS [facility] Product Number E0033 [facility]OD [facility] Unit Donor # [id number] [facility] Unit Status released [facility] BL[facility] D [facility] Product Code [id number] [facility] [facility] Blood Type Barcode 5100 [facility] Expiration Date [phone] [facility] Unit Description LR Whole BLood [facility] Unit ABO O [facility] Unit POS [facility] Product Number [id number] [facility] Unit Donor # [id number] [facility] Unit Status released [facility] Product Code [id number] [facility] OD [facility] Blood Type Barcode 5100 [facility] Expiration Date [phone] [facility] Blood Bank BLOOD SPECIMEN / Unknown 09/10/2020 11:30 AM TOURIST AGENT Justin Tafoya MD LAB - BLOOD BANK OR DERABLES [facility] [address] [place] [address], [facility] [phone] * PREPARE FFP UNIT(S), 6 Units (09/10/2020 1:07 PM TOURIST AGENT) Unit Description Thawed Plasma 5D [facility] Unit ABO AB [facility] Unit POS [facility] Product Number [id number] [facility] Unit Donor # [id number] [facility] Unit Status released [facility] Product [facility] [id number] [facility]ANK [facility] Blood Type Barcode 8400 [facility] Expiration Date [phone] [facility] Unit Description Thawed Plasma 5D [facility] Unit ABO AB [facility] Unit POS [facility] Product Number [id number] [facility] Unit Donor # [id number] [facility] Unit Status released [facility] Product [facility] [id number] [facility] Blood Type Barcode 8400 [facility] Expiration Date [phone] [facility] Unit Description Thawed Plasma 5D [facility] Unit ABO AB [facility] Unit POS [facility] Product Number [id number] [facility] Unit Donor # [id number] [facility] Unit Status released [facility] Product Code [id number] [facility] Blood Type Barcode 8400 [facility] Expiration Date [phone] S BLOOD BANK LAB Unit Description Thawed Plasma 5D [facility] Unit ABO AB [facility] Unit Rh POS [facility] Product [facility] [id number] [facility] Unit Donor # [id number] [facility] Unit Status released [facility] Product Code [id number] [facility] Blood Type Barcode 8400 [facility] Expiration Date [phone] [facility] Blood Bank BLOOD SPECIMEN / Unknown 09/10/2020 11:30 AM TOURIST AGENT Sergio Vela DO LAB - BLOOD BANK ORD ERABLES [facility] [address] [place] [address], [place] [phone] * PREPARE PLATELET PHERESIS UNIT(S), 1 Units (09/10/2020 1:04 PM TOURIST AGENT) Unit Description LR PLT Phere IRR [facility] Unit ABO O [facility] B[facility] Unit Rh POS [facility] Product Number P11 [facility] Unit Donor # [id number] [facility] Unit Status released [facility] Product Code [id number] [facility] Blood Type Barcode 5100 [facility] Expiration Date [phone] [facility] Blood Bank BLOOD SPECIMEN / Unknown 09/10/2020 11:30 AM TOURIST AGENT Sergio Vela DO LAB - BLOOD BANK ORD ERABLES [facility] [address] [place] [address], [place] [phone] * ETT LINE PERFORMABLE (09/10/2020 11:42 AM TOURIST AGENT) Narrative Angela Duran MD - 09/10/2020 11:42 AM TOURIST AGENT Angela Duran MD 09/10/2020 11:42 AM Endotracheal Tube Placement: Patient Location: OR. Intubation Event Date/Time: 09/10/2020 11:22 AM Procedure: intubation (31912). Procedure Section: Sedation: under general anesthesia. Indications [...] RIGHT 2VW OR MORE (09/10/2020 11:24 AM TOURIST AGENT) Anatomical Region Laterality Modality Upper Extremity Radiographic Emilee ging 09/10/2020 12:1 3 PM TOURIST AGENT Impressions 09/10/2020 3:29 PM TOURIST AGENT FINDINGS/IMPRESSION: There is a proximal arm tourniquet. A soft tissue defect with subjacent soft tissue swelling and subcutaneous gas is seen in the mid-distal arm. The humerus appears intact. No large embedded radiopaque foreign body is identified. Medial and lateral distal humeral epicondylar enthesopathy. Report dictated by Ke Rodríguez MD (vice president payer). I, Dr. EMIL ALLEN have personally reviewed and interpreted this examination/study. This report was electronically signed by EMIL ALLEN on 09/10/2020 3:29 PM . Narrative 09/10/2020 3:29 PM TOURIST AGENT EXAMINATION: XR HUMERUS RIGHT 2VW OR MORE [...] enthesopathy. Report dictated by Ke Rodríguez MD (vice president payer). I, Dr. EMIL ALLEN have personally reviewed and interpreted this examination/study. This report was electronically signed by EMIL ALLEN on 09/10/2020 3:29 PM . Sergio Vela DO DIAGNOSTIC IMAGING O RDERABLES * PTT [facility] (09/10/2020 11:23 AM TOURIST AGENT) APTT 25.7 23.0 - 38.4 Seconds 09/10/2020 11:39 AM TOURIST AGENT [facility] Comment:Suggested therapeuti c range for full dose I.V. unfractionated heparin therapy for venous thromboembolism is 71 to 109 seconds. Blood BLOOD SPECIMEN / Unknown Venipuncture / Unknown 09/10/2020 11:23 AM TOURIST AGENT 09/10/2020 11:31 AM TOURIST AGENT Sergio Vela DO LAB - COAGULATION OR DERABLES [facility] [address] [place] [address], [facility] [phone] * TYPE + SCREEN PANEL (09/10/2020 11:23 AM TOURIST AGENT) Antibody Screen NEG 12:16 PM TOURIST AGENT [facility] ABO Rh O POS 09/10/2020 12:16 PM TOURIST AGENT [facility] Blood Bank BLOOD SPECIMEN / Unknown Venipuncture / Unknown 09/10/2020 11:23 AM TOURIST AGENT 09/10/2020 11:30 AM TOURIST AGENT Sergio Vela DO LAB - BLOOD BANK ORD SARI Performing Organization Address [facility]/ZIP Co de Phone Number [facility] [address] [place] [address], [facility] [phone] * (ABNORMAL) ALCOHOL ETHYL BLOOD (09/10/2020 11:23 AM TOURIST AGENT) Ethanol (mg/dL) 38(H) None Detected mg/dL 09/10/2020 12:07 PM TOURIST AGENT [facility] Comment:Ethanol in the patie nt's blood will contribute to the osmolar gap. Ethanol's contribution to the osmolar gap can be estimated by dividing the concentration of ethanol in mg/dL by 4.6. Blood BLOOD SPECIMEN / Unknown Venipuncture / Unknown 09/10/2020 11:23 AM TOURIST AGENT 09/10/2020 11:28 AM TOURIST AGENT Sergio Wardper LAB - CHEMISTRY JANETTE SANDHU Performing Organization Address [facility]/ZIP Co de Phone Number [facility] [address] [place] [address], [facility] [phone] * CARDIAC EKG ORDER (02/09/2018 1:53 PM [...] with reconstitution. Dictated by Sondra Dobbins MD (vice president payer). I, Dr. KIM HAMILTON M.D. have personally [...] with reconstitution. Dictated by Sondra Dobbins MD (vice president payer). I, Dr. KIM HAMILTON M.D. have personally reviewed and interpreted this examination/study. This report was electronically signed by KIM HAMILTON M.D. on 02/06/2018 4:38 PM . Nava Morgan MD CT ORDERABLES * (ABNORMAL) CREATININE BLOOD - POCT (IP) [facility] (02/06/2018 7:43 AM CDT) Creatinine POCT 1.51(A) 0.3 - 1.3 mg/dL [facility] eGFR POCT 60 60 ml/min [facility] Blood BLOOD SPECIMEN / Unknown 02/06/2018 7:43 AM CDT Nava Morgan MD LAB - POINT OF CARE ORDERABLES [facility] [address] [phone] Care Teams Residential Treatment Staff Relationship Specialty Start Date End Date Unknown, Provider PCP - General 01/01/18
--- OUTSIDE RECORDS SUMMARY | 2024-10-01 06:51 | XMS_ITS | Clinical Summary ---
Author Organization [facility] Address [address] [place] [address] Phone Care Team Providers Care Toll Line Repairer Name Role Phone Xander, Cecile Godinez APRN, SHARI Primary Care Provider Allergies No known active allergies Medications albuterol (PROVENTIL HFA, VENTOLIN HFA) 108 (90 Base) MCG/ACT Aerosol Solution take 2 Puffs by inhalation every 6 hours as needed for Wheezing. 1 Inhaler 7 Active JANUVIA 100 MG Tablet TK 1 T PO QD 4 8 Active Umeclidinium [place] (INCRUSE ELLIPTA IN) take by inhalation. 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 [place] or callus 10/06/2017 Dermatophytosis of nail 10/06/2017 [...] Comments Blood Pressure 152/90 06/18/2019 12:50 PM CHEMICALS FERMENTATION OPERATOR Pulse 77 06/18/2019 12:50 PM CHEMICALS FERMENTATION OPERATOR Temperature 36.7 C (98.1 F) 06/18/2019 12:50 PM CHEMICALS FERMENTATION OPERATOR Respiratory Rate 17 06/18/2019 12:50 PM CHEMICALS FERMENTATION OPERATOR Oxygen Saturation 94% 06/18/2019 12:50 PM CHEMICALS FERMENTATION OPERATOR Inhaled Oxygen Concentration - - Weight 115.7 kg (255 lb) 06/18/2019 12:50 PM CHEMICALS FERMENTATION OPERATOR Height 185.4 cm (6' 1 ) 06/18/2019 12:50 PM CHEMICALS FERMENTATION OPERATOR Body Mass Index 33.64 06/18/2019 12:50 PM CHEMICALS FERMENTATION OPERATOR Plan of Treatment Health Maintenance Due [...] - 144 mmol/L 03/05/2019 2:07 PM CDT [facility] POTASSIUM 4.0 3.5 - 5.1 mmol/L 03/05/2019 2:07 PM CDT [facility] CHLORIDE 99(L) 100 - 110 mmol/L 03/05/2019 2:07 PM CDT [facility] CO2, VENOUS 28 22 - 32 mmol/L 03/05/2019 2:07 PM CDT [facility] ANION GAP 15.0 8.0 - 20.0 mmol/L 03/05/2019 2:07 PM CDT [facility] GLUCOSE 114(H) 70 - 99 mg/dL 03/05/2019 2:07 PM CDT [facility] BUN 9 8 - 23 mg/dL 03/05/2019 2:07 PM CDT [facility] CREATININE, BLOOD 1.10 0.80 - 1.30 mg/dL 03/05/2019 2:07 PM CDT [facility] BUN/CREATININE RATIO 8(L) 12 - 20 ratio 03/05/2019 2:07 PM [facility] TOTAL PROTEIN 7.6 6.0 - 8.3 g/dL 03/05/2019 2:07 PM T [facility] ALBUMIN 4.1 3.5 - 5.2 g/dL 03/05/2019 2:07 PM T [facility] Comment: The colormetric methods used for the determination of Albumin may lead to falsely elevated test results in patients suffering from renal failure or insufficiency due to interference with other proteins. A/G RATIO 1.2 1.0 - 2.0 03/05/2019 2:07 PM CDT [facility] CALCIUM 9.9 8.9 - 10.3 mg/dL 03/05/2019 2:07 PM [facility] T BILI 0.3 <=1.2 mg/dL 03/05/2019 2:07 PM [facility] SGOT (AST) 22 <=40 U/L 03/05/2019 2:07 PM [facility] SGPT (ALT) 18 <=41 U/L 03/05/2019 2:07 PM T [facility] ALKALINE PHOSPHATASE 76 40 - 130 U/L 03/05/2019 2:07 PM [facility] GFR, EST. NONAFRICAN >60 >=60 03/05/2019 2:07 PM CDT [facility] GFR, EST. >60 >=60 019 2:07 PM [facility] Comment: Creatinine Clearance is the preferred criteria for selecting drug dose adjustments in renally impaired patients. The GFR is provided as additional pertinent clinical information. GFR is reported in mL/min/1.73 sq m. Blood specimen (specimen) Venous Catheter (IV) / Unknown 03/05/2019 1:35 PM CDT 03/05/2019 1:43 PM CDT Sergio Mcgowan MD CHEMISTRY ORDERABLES Final Result [facility] [address] [place] [address] from Last 3 Months or Most Recently Relevant to Health Maintenance Insurance MEDICARE C [employer] Care Teams Toll Line Repairer Relationship Specialty Start Date End Date Cecile Terrell APRN, ANIME ARTIST [address] [place] [address] PCP - General Advanced Practice Nurse 04/22/22
--- OUTSIDE RECORDS SUMMARY | 2024-10-01 06:51 | XMS_ITS | Clinical Summary ---
Author Organization [facility] A Address [address] [place] [address] Care Team Providers Care Board Of Directors Name Role Phone Cecile Terrell NP Primary Care Provider [phone] Allergies No known active allergies Medications albuterol [...] (07/24/2020): Added automatically from request for surgery [id number] Positive colorectal cancer s creening using DNA-based stool test 07/24/2020 Overview (07/24/2020): Added automatically from request for surgery [id number] PVD (peripheral vascular disease) (CMS/HCC) 02/2020 Assessment [...] again stressed the importance of smoking cessation. Encounters Date Type Department Care Team Description 09/21/2024 Orders Only [facility] Cardiology [address] [place] [address] Danielle Gaspar MD from Last 3 Months Surgical History Surgery Date Site/Laterality Comments COLONOSCOPY 08/22/2020 Medical History Medical History Date Comments Shortness of breath Type 2 diabetes mellitus (HCC) Hypertension COPD (chronic obstructive pulmonary disease) (HC C) Carotid artery disease Hyperlipidemia Family History Medical History Relation Name [...] on file Legal Sex Male 9:22 AM LUGGAGE REPAIRER Gender Identity Not on file Sexual Orientation Not on file Obstetrics History Last Filed Vital Signs Vital Sign Reading Time Taken Comments Blood Pressure 114/70 03/13/2021 1:17 PM CDT Pulse 66 03/13/2021 1:17 PM CDT Temperature 36 C (96.8 F) 08/22/2020 2:57 PM LUGGAGE REPAIRER Respiratory Rate 14 03/13/2021 1:17 PM CDT Oxygen Saturation 100% 08/22/2020 2:57 PM LUGGAGE REPAIRER Inhaled Oxygen Concentration - - Weight 112.5 kg (248 lb) 04/03/2023 1:41 PM CDT Height 185.4 cm (6' 1 ) 04/03/2023 1:41 PM CDT Body Mass Index 32.72 04/03/2023 1:41 PM CDT Plan of Treatment Health Maintenance Due Date Last Done Comments Albumin Creatinine Ratio, Urine 1955 Depression Screening 1955 Hepatitis C Screening 1955 Prostate Cancer Screening-PSA 1955 Dilated Eye Exam 1955 Foot Exam 1955 Hepatitis B Screening 1975 Pneumococcal vaccine 65+ (1 of 2 - PCV) 01/14/1976 Zoster Vaccine (1 of 2) 2007 Fall Risk Assessment 08/22/2021 08/22/2020 Abdominal Aortic Aneurysm (A AA) Screen 2022 04/04/2020 Well Visit 65+ 2022 Hemoglobin A1C 09/24/2022 03/27/2022, 04/0 12/2021, 09/11/2020 Lipid Panel 10/31/2022 10/31/2021, 04/04/2020 eGFR 03/27/2023 [...] Procedure Name Priority Date/Time Associated Diagnosis Comments CARDIOLOGY DOCUMENT SCAN Routine 09/08/2024 5:11 PM LUGGAGE REPAIRER EGFR Routine 03/27/2022 12:52 PM CDT HEMOGLOBIN A1C Routine 03/27/2022 12:52 PM CDT LIPID PANEL Routine 10/31/2021 11:45 AM CDT COLONOSCOPY 08/22/2020 1:47 PM LUGGAGE REPAIRER CTA ABDOMINAL AORTA AND BILATERAL ILIOFEMORAL RUNOFF Schedule Routine, Read Routine (OP Routine) 04/04/2020 4:17 PM CDT Claudication from Last 3 Months or Most Recently Relevant to Health Maintenance Results * Cardiology Document Scan (09/08/2024 5:11 PM LUGGAGE REPAIRER) Anatomical Region Laterality Modality Other us Danielle Gaspar MD CV CARDIAC SERVICES PRO CEDURES Final Result * eGFR (03/27/2022 12:52 PM CDT) eGFR [...] BLOOD ORDERABL ES Final Result [facility] 1 [facility] [place] [address] * (ABNORMAL) Hemoglobin A1c (03/27/2022 12:52 PM CDT) Hgb A1C 6.6(H) 4.0 - 5.6 % [facility] Estimated Average Glucose 143 mg/dL [facility] Comment: The ADA recommends reporting an estimated Average Glucose (eAG) with all Hemoglobin A1c results using the equation derived from a study of 507 normal and diabetic adults. Minority populations were underrepresented and children were not included. (Diabetes Care 31:2504-8720, 2008). The eAG is not equivalent to a fasting glucose. Blood 03/27/2022 12:5 2 PM CDT 03/27/2022 3:20 PM CDT Jt Banegas MD LAB BLOOD ORDERABL ES Final Result [facility] 1 [facility] [place] [address] * Lipid panel (10/31/2021 11:45 AM CDT) Cholesterol 159 30 - 199 mg/dL [facility] Comment: Interpretive Data Ages < or = [...] on 2018. HDL 46 >=40 mg/dL [facility]) Comment: Interpretive Data Ages < or = [...] revised on 2018. Chol/HDL ratio 3 ANGELA Lainez [facility] ([place]) Blood 10/31/2021 11:4 5 AM CDT 10/31/2021 12:09 PM CDT us Jt Banegas MD LAB BLOOD ORDERABL ES Final Result [facility] ([place]) 1 [employer] [facility] [place] [address] * COLONOSCOPY (08/22/2020 1:47 PM LUGGAGE REPAIRER) Anatomical Region Laterality Modality Other Narrative Procedure Note Ignacio Landers MD - 08/22/2020 1:47 PM CST [facility] Patient Name: Philip Barron Procedure Date: 08/22/2020 1:47 PM Date of : 1955 Admit Type: Outpatient Age: 65 Gender: Male Attending MD: Ignacio Landers M.D. Room: [facility] ENDOSCOPY ROOM 1 Note Status: Finalized Patient Profile: This is a 65 year old male. No family history ofcolon cancer. Noted recently positive Cologuard test. Procedure: Colonoscopy Indications: Screening for colorectal malignant neoplasm, This is the patient's first colonoscopy Referring MD: CATHLEEN Cordero Providers: Ignacio Landers M.D. Impression: - Diverticulosis [...] passed under direct vision.The Pediatric Colonoscope [id number] was introduced through the anus and advanced [...] 1:47 PM Procedure Code(s): --- Professional --- 80375, Colonoscopy, flexible; with biopsy, single or multiple Diagnosis Code(s): --- Professional --- Z12.11, Encounter for screening for malignant neoplasm of colon K64.8, Other hemorrhoids D12.5, Benign neoplasm of sigmoid colon K57.30, Diverticulosis of large intestine without perforation orabscess without bleeding CPT copyright 2017 [employer] [place] [employer]. All rights reserved. The codes documented in this report are preliminary and upon spring forger reviewmay be revised to meet current compliance requirements. Recognized by the [place] [employer] for promoting quality [...] Recently Relevant to Health Maintenance Insurance [facility]IC[facility] MANAGED MEDICARE GENERIC RISK OTHER WELLCARE MEDICARE HMO [facility] [place] Advance Directives For more information, please contact: [phone] * Full Code (Latest Code Status on File) Date Activated Date Inactivated Comments 08/22/2020 1:38 PM 08/22/2020 7:14 PM * Full Code Date Activated Date Inactivated Comments 08/22/2020 1:38 PM 08/22/2020 1:38 PM Care Teams Board Of Directors Relationship Specialty Start Date End Date Ceciel Terrell NP [address] [address] PCP - General Family Medicine 03/13/21
--- OUTSIDE RECORDS SUMMARY | 2024-10-01 06:51 | XMS_ITS | Encounter Summary ---
Author Organization [facility] Address [address] [facility] [place] [address] Phone Care Team Providers Care Regional Wildlife Agent Name Role Phone Cecile Terrell APRN, CNP Primary Care Provider Reason for Referral * PT/OT/ST (Routine) - Closed Specialty Diagnoses / Procedures Referred By Contdave t Referred To Contact Occupational Therapy Diagnoses Wrist drop, right wrist Cecile Terrell APRN, CNP [address] [place] [address] Phone: tel: fax: [facility] at [address] [address] Phone: tel: fax: Referral ID Status Reason Start Date Expiration Date Visits Re quested Visits Authorized [id number] Closed 03/11/2024 50 3 Scheduling Instructions Encounter Details Date Type Department Care Team (Latest Contact Info) Description 03/11/2024 Transcribe Orders [facility] [address] [place] [address] Cecile Terrell APRN, CNP [address] [place] [address] Wrist drop, right wrist (Primary [...] Primary documented in this encounter Care Teams Regional Wildlife Agent Relationship Specialty Start Date End Date Cecile Terrell APRN, WORK OVER RIG OPERATOR [address] [place] [address] PCP - General Advanced Practice Nurse 04/22/22 documented as of this encounter
--- OUTSIDE RECORDS SUMMARY | 2024-10-01 06:51 | XMS_ITS | Encounter Summary ---
Author Organization [facility] Address [address] [facility] [place] [address] Phone Care Team Providers Care Acute Care Nursing Assistant Name Role Phone Cecile Terrell APRN, CNP Primary Care Provider Reason for Referral * PT/OT/ST (Routine) - Closed Specialty Diagnoses / Procedures Referred By Contdave t Referred To Contact Physical Therapy Diagnoses Cerebrovascular accident (CVA), unspecified mechanism (HCC) Cecile Terrell APRN, CNP [address] [place] [address] Phone: tel: fax: [facility] at [address] [address] Phone: tel: fax: Referral ID Status Reason Start Date Expiration Date Visits Re quested Visits Authorized [id number] Closed 02/11/2024 50 11 Scheduling Instructions Encounter Details Date Type Department Care Team (Latest Contact Info) Description 02/11/2024 Transcribe Orders [facility] [address] [place] [address] Cecile Terrell APRN, CNP [address] [place] [address] Cerebrovascular accident (CVA), unspecified mechanism [...] Primary documented in this encounter Care Teams Acute Care Nursing Assistant Relationship Specialty Start Date End Date Cecile Terrell APRN, GLOBAL CREATIVE CHAIRMAN [address] [place] [address] PCP - General Advanced Practice Nurse 04/22/22 documented as of this encounter
--- OUTSIDE RECORDS SUMMARY | 2024-10-01 06:51 | XMS_ITS | Encounter Summary ---
Author Organization [facility] Healthcare Address [address] [place] [address] Care Team Providers Care Process Engineering Technician Name Role Phone Vineet Conklin WANT AD RECEIVER Primary Care Provider [phone] Cecile Terrell WANT AD RECEIVER Primary Care Provider [phone] Encounter Details Date Type Department Care Team ([facility] Contact Info) Description 03/21/[address] [address] Pacheco Pelayo, Social History Tobacco Use Types Packs/Day Years Used Date Smoking Tobacco: Every Day Sex and Gender Information Value Date Recorded Sex Assigned at Not on file Legal Sex Male 9:22 AM PRINCIPAL ARCHAEOLOGIST Gender Identity Not on file Sexual Orientation Not on file documented as of this encounter Plan of Treatment Not on file documented as of this encounter Visit Diagnoses Not on filedocumented in this encounter Care Teams Process Engineering Technician Relationship Specialty Start Date End Date Vineet Conklin NP PCP - General Internal Medicine 12/09/19 03/12/21 Cecile Terrell NP [address] [address] PCP - General Family Medicine 03/13/21 documented as of this encounter
--- OUTSIDE RECORDS SUMMARY | 2024-10-01 06:51 | XMS_ITS | Referral Summary ---
Author Organization [facility] Address [address] [place] [address] Care Team Providers Care Lead Java Developer Architect Name Role Phone Unknown, Provider Primary Care Provider Unavaila ble Source Comments [facility],non-owned Affiliates and Associated Physician Practices is amultiple site organization consisting of ambulatory clinics and hospital sitesin [place], [place], [place] and [place]. This disclosure is being madepursuant to the Care Everywhere program and may not contain all information available regarding this patient. 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 [...] file Gender Identity Male 09/11/2020 8:16 AM [facility] Sexual Orientation Not on file Last Filed Vital Signs Vital Sign Reading Time Taken Comments Blood Pressure 143/89 08/19/2023 3:24 PM [facility] Pulse 71 08/19/2023 3:24 PM [facility] Temperature 36.6 C (97.9 F) 08/19/2023 3:24 PM [facility] Respiratory Rate 18 08/19/2023 3:24 PM [facility] Oxygen Saturation 98% 08/19/2023 3:24 PM [facility] Inhaled Oxygen Concentration - - Weight 110.5 kg (243 lb 9.6 oz) 08/19/2023 3:24 PM [facility] Height 185.4 cm (6' 1 ) 08/19/2023 3:24 PM [facility] Body Mass Index 32.14 08/19/2023 3:24 PM [facility] Functional Status Functional Status Response Date of [...] Interventions: PT Medical Devices Implanted Type Area Air Drier Device Identifier Shelf Expiration Date Model / Serial / Lot Graft Tissue Avance Nrv 30mm Algrf 4-5mm Implanted:Qty: 1 on 09/12/2020 by Per Glze MD at [facility] Right: Arm [employer] 05/27/2023 [id number] / / [id number] Description:CC Procedures Procedure Name Priority Date/Time Associated Diagnosis Comments BASIC METABOLIC PANEL (CALCIUM TOTAL) Routine 12/16/2022 8:35 AM CDT 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) HEMOGLOBIN A1C Routine 09/11/2020 8:14 AM [facility] from Last 3 Months or Most Recently Relevant to Health Maintenance Results * (ABNORMAL) BASIC METABOLIC PANEL (CALCIUM TOTAL) (12/16/2022 8:35 AM [facility]) BUN 10 7 - 26 mg/dL 12/16/2022 9:29 AM [facility] Creatinine 0.94 0.71 - 1.16 mg/dL 12/16/2022 9:29 AM [facility] Sodium 143 136 - 145 mmol/L 12/16/2022 9:29 AM [facility] Potassium 4.4 3.5 - 4.5 mmol/L 12/16/2022 9:29 AM [facility] Chloride 105 98 - 107 mmol/L 12/16/2022 9:29 AM [facility] CO2 27 22 - 29 mmol/L 12/16/2022 9:29 AM [facility] Glucose 129(H) 70 - 115 mg/dL 12/16/2022 9:29 AM [facility] Calcium 9.3 8.4 - 10.2 mg/dL 12/16/2022 9:29 AM [facility] Anion Gap 15 8 - 18 12/16/2022 9:29 AM [facility] BUN/Creatinine Ratio 11 7 - 23 12/16/2022 9:29 AM [facility] Osmolality Calculated 297 270 - 300 mOsm/kg 12/16/2022 9:29 AM [facility] eGFR by CKD-EPI 90 >=90 mL/min/1.7 3 m2 12/16/2022 9:29 AM [facility] Blood BLOOD SPECIMEN / Unknown Venipuncture / Unknown 12/16/2022 8:35 AM T 12/16/2022 9:02 AM [facility] Fanta Grubbs PA-C LAB - CHEMISTRY O RDERABLES [facility] [address] [place] [address], [facility] [phone] * (ABNORMAL) HEMOGLOBIN A1C (09/11/2020 8:14 AM [facility]) Hemoglobin A1c 7.1(H) 4.4 - 6.3 % 09/11/2020 10:41 AM [facility] Estimated Average Glucose 157 mg/dL 09/11/2020 10:41 AM [facility] Comment: HbA1c Interpretation: Treatment target values recommended by ADA and other clinical organizations should be used to evaluate metabolic control in patients. Treatment Target Values: Normal : < 5.7% Pre-diabetes: 5.7-6.4% Diabetes: Equal to or greater than 6.5% Reference: [place] Diabetes Association Standards of Care in Diabetes [...] Mikhail Godinez, et al. J [place] Medical Directors Association. 2012 Test results diagnostic of diabetes should be repeated for confirmation. The Sebia Capillary 2 assay for the measurement of HbA1c is a National Glycohemoglobin Standardization Program (NGSP)certified method. Blood BLOOD SPECIMEN / Unknown Venipuncture / Unknown 09/11/2020 8:14 AM [facility] 09/11/2020 8:18 AM [facility] Narrative [facility] - 09/11/2020 10:41 AM [facility] note^<nlbl:[email or web address]_changed> Margarita Plata APRN-[employer]ING [employer] LAB - CHEMISTRY ORDERABLES [facility] [address] [place] [address], [facility] [phone] from Last 3 Months or Most Recently Relevant to Health Maintenance Insurance Payer Benefit Plan / Group Subscriber ID Effective Dates Phone Address Type [facility] [employer] [facility] [place] [employer] [place] [id number] 02/25/2023-Pres ent [address] [place] [address] Medicaid Managed Care [facility] HMO POS MEDICARE ADV [id number] 07/28/2022-Pres ent [employer] [address] [address] [place] [address] Medicare-Man aged Care MEDICAID - OUT OF STATE [place] [id number] Effective for all dates [address] [address] [place] [address] Medicaid MEDICAID - OUT OF STATE [place] [id number] Effective for all dates [address] [address] [place] [address] Medicaid MEDICARE WPS MEDICARE PART B [id number] 06/27/2020-Pre sent [address] [address] [place] [address] Medicare MEDICAID - OUT OF STATE [place] [id number] Effective for all dates [address] [address] [place] [address] Medicaid MEDICARE WPS MEDICARE PART B [id number] 06/27/2020-Pre sent [address] [address] [place] [address] Medicare MEDICAID - OUT OF STATE [place] [id number] Effective for all dates [address] [address] [place] [address] Medicaid MEDICAID - OUT OF [place] [id number] Effective for all dates [address] [address] [place] [address] Medicaid MEDICAID - OUT OF [place] [id number] Effective for all dates [address] [address] [place] [address] Medicaid [employer] WE[employer] HMO POS MEDICARE ADV [id number] 07/28/2022-Pres ent [employer] [address] [address] [place] [address] Medicare-Man aged Care MEDICAID - OUT OF STATE [place] [id number] Effective for all dates [address] [address] [place] [address] Medicaid MEDICARE WPS MEDICARE PART B [id number] 06/27/2020-Pre sent [address] [address] [place] [address] Medicare [employer] WELLCARE HMO POS MEDICARE ADV [id number] 07/28/2021-Pres ent [employer] [address] [address] [place] [address] Medicare-Man aged Care MEDICAID - OUT OF STATE MEDICAID [facility] PUBLIC AID [id number] Effective for all dates [address] [address] [place] [address] Medicaid MEDICARE WPS MEDICARE PART B [id number] 06/27/2020-Pre sent [address] [address] [place] [address] Medicare [employer] WELLCARE HMO POS MEDICARE ADV [id number] 07/28/2021-Pres ent [employer] [address] [address] [place] [address] Medicare-Man aged Care MEDICAID - OUT OF STATE MED[place] PUBLIC AID [id number] Effective for all dates [address] [address] [place] [address] Medicaid MEDICARE WPS MEDICARE PART B [id number] 06/27/2020-Pre sent [address] [address] [place] [address] Medicare [employer] WELLCARE HMO POS MEDICARE ADV [id number] 07/28/2021-Pres ent [employer] [address] [address] [place] [address] Medicare-Man aged Care MEDICAID - OUT OF STATE MED[place] PUBLIC [place] [id number] Effective for all dates [address] [address] [place] [address] Medicaid MEDICARE WPS MEDICARE PART B [id number] 06/27/2020-Pre sent [address] [address] [place] [address] Medicare [employer] WELLCARE HMO POS MEDICARE ADV [id number] 07/28/2021-Pres ent [employer] [address] [address] [place] [address] Medicare-Man aged Care MEDICAID - OUT OF STATE [place] [id number] Effective for all dates [address] [address] [place] [address] Medicaid MEDICARE WPS MEDICARE PART B [id number] 06/27/2020-Pre sent [address] [address] [place] [address] Medicare [employer] WELLCARE HMO POS MEDICARE ADV [id number] 07/28/2021-Pres ent [employer] [address] [address] [place] [address] Medicare-Man aged Care MEDICAID - OUT OF STATE MEDICAID [facility] PUBLIC AID [id number] Effective for all dates [address] [address] [place] [address] Medicaid MEDICARE WPS MEDICARE PART B [id number] 06/27/2020-Pre sent [address] [address] [place] [address] Medicare [employer]LL[employer] WELLCARE HMO POS MEDICARE ADV [id number] 07/28/2021-Pres ent [employer] [address] [address] [place] [address] Medicare-Man aged Care MEDICAID - OUT OF STATE MED[place] PUBLIC [place] [id number] Effective for all dates [address] [address] [place] [address] Medicaid MEDICARE WPS MEDICARE PART B [id number] 06/27/2020-Pre sent [address] [address] [place] [address] Medicare [employer] WELLCARE HMO POS MEDICARE ADV [id number] 07/28/2021-Pres ent [employer] [address] [address] [place] [address] Medicare-Man aged Care MEDICAID - OUT OF STATE MED[place] PUBLIC [place] [id number] Effective for all dates [address] [address] [place] [address] Medicaid MEDICARE WPS MEDICARE PART B [id number] 06/27/2020-Pre sent [address] [address] [place] [address] Medicare [employer]LL[employer] WELLCARE HMO POS MEDICARE ADV [id number] 07/28/2021-Pres ent [employer] [address] [address] [place] [address] Medicare-Man aged Care MEDICAID - OUT OF STATE MED[place] PUBLIC AID [id number] Effective for all dates [address] [address] [place] [address] Medicaid [employer] WELLCARE HMO POS MEDICARE ADV [id number] 07/28/2022-Pres ent [employer] [address] [address] [place] [address] Medicare-Man aged Care [employer] WELLCARE HMO POS MEDICARE ADV [id number] 07/28/2021-Pres ent [employer] [address] [address] [place] [address] Medicare-Man aged Care MEDICAID - OUT OF STATE [place] [id number] Effective for all dates [address] [address] [place] [address] Medicaid WELL[employer]ARE WELLCARE HMO POS MEDICARE ADV [id number] 07/28/2021-Pres ent [employer] [address] [address] [place] [address] Medicare-Man aged Care MEDICAID - OUT OF STATE MED[place] [id number] Effective for all dates [address] [address] [place] [address] Medicaid [employer]LL[employer]ARE WELLCARE HMO POS MEDICARE ADV [id number] 07/28/2021-Pres ent [employer] [address] [address] [place] [address] Medicare-Man aged Care MEDICAID - OUT OF STATE MED[place] [id number] Effective for all dates [address] [address] [place] [address] Medicaid [employer]LL[employer]ARE WELLCARE HMO POS MEDICARE ADV [id number] 07/28/2021-Pres ent [employer] [address] [address] [place] [address] Medicare-Man aged Care MEDICAID - OUT OF STATE MEDICAID [facility] PUBLIC AID [id number] Effective for all dates [address] [place] [address] Medicaid WELLCARE WELLCARE HMO POS MEDICARE ADV [id number] 07/28/2021-Pres ent [employer] [address] [address] [place] [address] Medicare-Man aged Care MEDICAID - OUT OF STATE MED[place] [id number] Effective for all dates [address] [address] [place] [address] Medicaid WELLCARE WELLCARE HMO POS MEDICARE ADV [id number] 07/28/2021-Pres ent [employer] [address] [address] [place] [address] Medicare-Man aged Care MEDICAID - OUT OF STATE MEDICAID [facility] PUBLIC AID [id number] Effective for all dates [address] [address] [place] [address] Medicaid WELLCARE WELLCARE HMO POS MEDICARE ADV [id number] 07/28/2021-Pres ent [employer] [address] [address] [place] [address] Medicare-Man aged Care MEDICAID - OUT OF STATE MEDICAID [facility] PUBLIC AID [id number] Effective for all dates [address] [address] [place] [address] Medicaid WELLCARE WELLCARE HMO POS MEDICARE ADV [id number] 07/28/2021-Pres ent [employer] [address] [address] [place] [address] Medicare-Man aged Care MEDICAID - OUT OF STATE MEDICAID [facility] PUBLIC AID [id number] Effective for all dates [address] [address] [place] [address] Medicaid WELLCARE WELLCARE HMO POS MEDICARE ADV [id number] 07/28/2021-Pres ent [employer] [address] [address] [place] [address] Medicare-Man aged Care MEDICAID - OUT OF STATE MED[place] PUBLIC AID [id number] Effective for all dates [address] [address] [place] [address] Medicaid WELLCARE WELLCARE HMO POS MEDICARE ADV [id number] 07/28/2021-Pres ent [employer] [address] [address] [place] [address] Medicare-Man aged Care MEDICAID - OUT OF STATE MEDICAID [facility] PUBLIC AID [id number] Effective for all dates [address] [address] [place] [address] Medicaid WELLCARE WELLCARE HMO POS MEDICARE ADV [id number] 07/28/2021-Pres ent [employer] [address] [address] [place] [address] Medicare-Man aged Care MEDICAID - OUT OF STATE MEDICAID [facility] PUBLIC AID [id number] Effective for all dates [address] [address] [place] [address] Medicaid WELLCARE WELLCARE HMO POS MEDICARE ADV [id number] 07/28/2021-Pres ent [employer] [address] [address] [place] [address] Medicare-Man aged Care MEDICAID - OUT OF STATE MEDICAID [facility] PUBLIC AID [id number] Effective for all dates [address] [address] [place] [address] Medicaid WELLCARE WELLCARE HMO POS MEDICARE ADV [id number] 07/28/2021-Pres ent [employer] [address] [address] [place] [address] Medicare-Man aged Care MEDICAID - OUT OF STATE MED[place] [id number] Effective for all dates [address] [address] [place] [address] Medicaid WELLCARE WELLCARE HMO POS MEDICARE ADV [id number] 07/28/2021-Pres ent [employer] [address] [address] [place] [address] Medicare-Man aged Care MEDICAID - OUT OF STATE MED[place] PUBLIC AID [id number] Effective for all dates [address] [address] [place] [address] Medicaid WELLCARE WELLCARE HMO POS MEDICARE ADV [id number] 07/28/2021-Pres ent [employer] [address] [address] [place] [address] Medicare-Man aged Care MEDICAID - OUT OF STATE MED[place] PUBLIC AID [id number] Effective for all dates [address] [address] [place] [address] Medicaid WELLCARE WELLCARE HMO POS MEDICARE ADV [id number] 07/28/2021-Pres ent [employer] [address] [address] [place] [address] Medicare-Man aged Care MEDICAID - OUT OF STATE MED[place] A[place] [id number] Effective for all dates [address] [address] [place] [address] Medicaid [employer]LLCARE WELLCARE HMO POS MEDICARE ADV [id number] 07/28/2021-Pres ent [employer] [address] [address] [place] [address] Medicare-Man aged Care MEDICAID - OUT OF STATE MED[place] A[place] [id number] Effective for all dates [address] [address] [place] [address] Medicaid MEDICARE WPS MEDICARE PART B [id number] 06/27/2020-Pre sent [address] [address] [place] [address] Medicare MEDICAID - OUT OF STATE [place] [id number] Effective for all dates [address] [address] [place] [address] Medicaid MEDICARE WPS MEDICARE PART B [id number] 06/27/2020-Pre sent [address] [address] [place] [address] Medicare MEDICAID - OUT OF STATE MED[place] [id number] Effective for all dates [address] [address] [place] [address] Medicaid MEDICARE WPS MEDICARE PART B [id number] 06/27/2020-Pre sent [address] [address] [place] [address] Medicare MEDICAID - OUT OF STATE MED[place] [id number] Effective for all dates [address] [address] [place] [address] Medicaid MEDICARE WPS MEDICARE PART B [id number] 06/27/2020-Pre sent [address] [address] [place] [address] Medicare MEDICAID - OUT OF STATE MED[place] [id number] Effective for all dates [address] [address] [place] [address] Medicaid MEDICARE WPS MEDICARE PART B [id number] 06/27/2020-Pre sent [address] [address] [place] [address] Medicare MEDICAID - OUT OF STATE MEDICAID [facility] PUBLIC AID [id number] Effective for all dates [address] [address] [place] [address] Medicaid MEDICARE WPS MEDICARE PART B [id number] 06/27/2020-Pre sent [address] [address] [place] [address] Medicare MEDICAID - OUT OF STATE MED[place] [id number] Effective for all dates [address] [address] [place] [address] Medicaid MEDICAID - OUT OF STATE MEDICAID [place] [id number] Effective for all dates [address] [address] [place] [address] Medicaid MEDICAID - OUT OF STATE MEDICAID [place] AID [id number] Effective for all dates [address] [address] [place] [address] Medicaid MEDICAID - OUT OF STATE MED[place] [id number] Effective for all dates [address] [address] [place] [address] Medicaid MEDICAID - OUT OF [facility] MEDICAID [place] [id number] Effective for all dates [address] [address] [place] [address] Medicaid MEDICAID - OUT OF [facility] MEDICAID - [place] PUBLIC [place] [id number] Effective for all dates [address] [place] [address] Medicaid MEDICAID - OUT OF [facility] MEDICAID - [place] [id number] Effective for all dates [address] [address] [place] [address] Medicaid MEDICAID - OUT OF [facility] MEDICAID - [place]ID [id number] Effective for all dates [address] [address] [place] [address] Medicaid MEDICARE WPS MEDICARE PART B [id number] 06/27/2020-Pre sent [address] [address] [place] [address] Medicare MEDICARE WPS MEDICARE PART B [id number] 06/27/2020-Pre sent [address] [address] [place] [address] Medicare Advance Directives * Full Code (Latest Code Status on File) Date Activated Date Inactivated Comments 09/11/2020 11:47 PM 09/13/2020 3:46 PM * Full Code Date Activated Date Inactivated Comments 09/10/2020 11:11 AM 09/11/2020 7:25 PM Care Teams Lead Java Developer Architect Relationship Specialty Start Date End Date Unknown, Provider PCP - General 01/01/18
--- OUTSIDE RECORDS SUMMARY | 2024-10-01 06:51 | XMS_ITS | Clinical Summary ---
Author Organization [facility] Address [address] [place] [address] Care Team Providers Care Sanitary Napkin Machine Tender Name Role Phone Unknown, Provider Primary Care Provider Unavaila ble Source Comments [facility],non-owned Affiliates and Associated Physician Practices is amultiple site organization consisting of ambulatory clinics and hospital sitesin [place], [place]. This disclosure is being madepursuant to the Care Everywhere program and may not contain all information available regarding this patient. 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 [...] file Gender Identity Male 09/11/2020 8:16 AM DRY CHAIN OPERATOR Sexual Orientation Not on file Last Filed Vital Signs Vital Sign Reading Time Taken Comments Blood Pressure 143/89 08/19/2023 3:24 PM DRY CHAIN OPERATOR Pulse 71 08/19/2023 3:24 PM DRY CHAIN OPERATOR Temperature 36.6 C (97.9 F) 08/19/2023 3:24 PM DRY CHAIN OPERATOR Respiratory Rate 18 08/19/2023 3:24 PM DRY CHAIN OPERATOR Oxygen Saturation 98% 08/19/2023 3:24 PM DRY CHAIN OPERATOR Inhaled Oxygen Concentration - - Weight 110.5 kg (243 lb 9.6 oz) 08/19/2023 3:24 PM DRY CHAIN OPERATOR Height 185.4 cm (6' 1 ) 08/19/2023 3:24 PM DRY CHAIN OPERATOR Body Mass Index 32.14 08/19/2023 3:24 PM DRY CHAIN OPERATOR Plan of Treatment Health Maintenance Due Date Last Done Comments COLON MONITORING [address] CT COLONOGRAPHY - COLON [...] years 1-dose series) 2017 AAA SCREENING 2022 COLOGUARD (AGES 45-75) - COLON CA SCREENING 06/14/2023 06/14/2020 DIABETES RETINOPATHY SCREENING 07/04/2023 DIABETES-FOOT EXAM WITH [...] Interventions: PT Medical Devices Implanted Type Area Advertiser Device Identifier Shelf Expiration Date Model / Serial / Lot Graft Tissue Avance Nrv 30mm Algrf 4-5mm Implanted:Qty: 1 on 09/12/2020 by Per Glez MD at [facility] Right: Arm [employer] 05/27/2023 [id number] / / [id number] Description:CC Procedures Procedure Name Priority Date/Time Associated Diagnosis Comments BASIC METABOLIC PANEL (CALCIUM TOTAL) Routine 12/16/2022 8:35 AM CDT 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) HEMOGLOBIN A1C Routine 09/11/2020 8:14 AM DRY CHAIN OPERATOR from Last 3 Months or Most Recently Relevant to Health Maintenance Results * (ABNORMAL) BASIC METABOLIC PANEL (CALCIUM TOTAL) (12/16/2022 8:35 AM CDT) BUN 10 7 - 26 mg/dL 12/16/2022 9:29 AM CDT [facility] Creatinine 0.94 0.71 - 1.16 mg/dL 12/16/2022 9:29 AM CDT [facility] Sodium 143 136 - 145 mmol/L 12/16/2022 9:29 AM [facility] Potassium 4.4 3.5 - 4.5 mmol/L 12/16/2022 9:29 AM [facility] Chloride 105 98 - 107 mmol/L 12/16/2022 9:29 AM [facility] CO2 27 22 - 29 mmol/L 12/16/2022 9:29 AM [facility] Glucose 129(H) 70 - 115 mg/dL 12/16/2022 9:29 AM [facility] Calcium 9.3 8.4 - 10.2 mg/dL 12/16/2022 9:29 AM [facility] Anion Gap 15 8 - 18 12/16/2022 9:29 AM [facility] BUN/Creatinine Ratio 11 7 - 23 12/16/2022 9:29 AM [facility] Osmolality Calculated 297 270 - 300 mOsm/kg 12/16/2022 9:29 AM [facility] eGFR by CKD-EPI 90 >=90 mL/min/1.7 3 m2 12/16/2022 9:29 AM [facility] Blood BLOOD SPECIMEN / Unknown Venipuncture / Unknown 12/16/2022 8:35 AM [facility] 12/16/2022 9:02 AM [facility] Fanta Grubbs PA-C LAB - CHEMISTRY O RDERABLES [facility] [address] [place] [address], [facility] [phone] * (ABNORMAL) HEMOGLOBIN A1C (09/11/2020 8:14 AM [facility]) Hemoglobin A1c 7.1(H) 4.4 - 6.3 [...] Equal to or greater than 6.5% Reference: [place] Diabetes Association Standards of Care in Diabetes -2014 In patients 70 years and older consider HbA1c target range of 7.0-7.5% Reference: Diabetes Mellitus in Older People: Position Statement on behalf of the International Association of Gerontology and Geriatrics (IAGG), the Diabetes Working Green Party for Older People (EDWPOP), and the International Task Force of Experts in Diabetes. Mikhail Godinez, et al. J [place] Medical Directors Association. 2012 Test results diagnostic of diabetes should be repeated for confirmation. The Sebia Capillary 2 assay for the measurement of HbA1c is a National Glycohemoglobin Standardization Program (NGSP)certified method. Blood BLOOD SPECIMEN / Unknown Venipuncture / Unknown 09/11/2020 8:14 AM DRY CHAIN OPERATOR 09/11/2020 8:18 AM DRY CHAIN OPERATOR Narrative [facility] - 09/11/2020 10:41 AM DRY CHAIN OPERATOR note^<nlbl:demographic_changed> Margarita Plata APRN-OTA LAB - CHEMISTRY ORDERABLES Performing Organization Address City/State/[facility] Co de Phone Number [facility] [address] [place] [address], [facility] [phone] from Last 3 Months or Most Recently Relevant to Health Maintenance Insurance Payer Benefit Plan / Group Subscriber ID Effective Dates Phone Address Type [facility] [place] [facility] [place] [id number] 02/25/2023-Pres ent [address] [place] [address] Medicaid Managed Care WELLCARE WELLCARE HMO POS MEDICARE ADV [id number] 07/28/2022-Pres ent [employer] [address] [address] [place] [address] Medicare-Man aged Care MEDICAID - OUT OF [facility] [place]ICAID - [place] [id number] Effective for all dates [address] [address] [place] [address] Medicaid MEDICAID - OUT OF [facility] [place]ID [place] [id number] Effective for all dates [address] [address] [place] [address] Medicaid MEDICARE WPS MEDICARE PART B [id number] 06/27/2020-Pre sent [address] [address] [place] [address] Medicare MEDICAID - OUT OF STATE MEDICAID [place] [id number] Effective for all dates [address] [address] [place] [address] Medicaid MEDICARE WPS MEDICARE PART B [id number] 06/27/2020-Pre sent [address] [address] [place] [address] Medicare MEDICAID - OUT OF STATE MEDICAID [place] [id number] Effective for all dates [address] [address] [place] [address] Medicaid MEDICAID - OUT OF STATE MEDICA[place] [id number] Effective for all dates [address] [address] [place] [address] Medicaid MEDICAID - OUT OF [facility] [place]ICAID - [place] [id number] Effective for all dates [address] [address] [place] [address] Medicaid WELLCARE WELLCARE HMO POS MEDICARE ADV [id number] 07/28/2022-Pres ent [employer] PLANS [address] [address] [place] [address] Medicare-Man aged Care MEDICAID - OUT OF [facility] [place]ICAID [place] [id number] Effective for all dates [address] [address] [place] [address] Medicaid MEDICARE WPS MEDICARE PART B [id number] 06/27/2020-Pre sent [address] [address] [place] [address] Medicare WELLCARE WELLCARE HMO POS MEDICARE ADV [id number] 07/28/2021-Pres ent [employer] PLANS [address] [address] [place] [address] Medicare-Man aged Care MEDICAID - OUT OF STATE MED[place]ID [place] [id number] Effective for all dates [address] [address] [place] [address] Medicaid MEDICARE WPS MEDICARE PART B [id number] 06/27/2020-Pre sent [address] [address] [place] [address] Medicare WELLCARE WELLCARE HMO POS MEDICARE ADV [id number] 07/28/2021-Pres ent [employer] PLANS [address] [address] [place] [address] Medicare-Man aged Care MEDICAID - OUT OF STATE MEDICAID [facility] PUBLIC AID [id number] Effective for all dates [address] [address] [place] [address] Medicaid MEDICARE WPS MEDICARE PART B [id number] 06/27/2020-Pre sent [address] [address] [place] [address] Medicare WELLCARE WELLCARE HMO POS MEDICARE ADV [id number] 07/28/2021-Pres ent [employer] PLANS [address] [address] [place] [address] Medicare-Man aged Care MEDICAID - OUT OF STATE MEDICAID - [place] PUBLIC [place] [id number] Effective for all dates [address] [address] [place] [address] Medicaid MEDICARE WPS MEDICARE PART B [id number] 06/27/2020-Pre sent [address] [address] [place] [address] Medicare WELLCARE WELLCARE HMO POS MEDICARE ADV [id number] 07/28/2021-Pres ent [employer] PLANS [address] [address] [place] [address] Medicare-Man aged Care MEDICAID - OUT OF STATE MEDICAID - [place] [id number] Effective for all dates [address] [address] [place] [address] Medicaid MEDICARE WPS MEDICARE PART B [id number] 06/27/2020-Pre sent [address] [address] [place] [address] Medicare WELLCARE WELLCARE HMO POS MEDICARE ADV [id number] 07/28/2021-Pres ent [employer] PLANS [address] [address] [place] [address] Medicare-Man aged Care MEDICAID - OUT OF STATE MEDICAID [place] [id number] Effective for all dates [address] [address] [place] [address] Medicaid MEDICARE WPS MEDICARE PART B [id number] 06/27/2020-Pre sent [address] [address] [place] [address] Medicare WELLCARE WELLCARE HMO POS MEDICARE ADV [id number] 07/28/2021-Pres ent [employer] PLANS [address] [address] [place] [address] Medicare-Man aged Care MEDICAID - OUT OF STATE MEDICAID - [place] [id number] Effective for all dates [address] [address] [place] [address] Medicaid MEDICARE WPS MEDICARE PART B [id number] 06/27/2020-Pre sent [address] [address] [place] [address] Medicare WELLCARE WELLCARE HMO POS MEDICARE ADV [id number] 07/28/2021-Pres ent [employer] PLANS [address] [address] [place] [address] Medicare-Man aged Care MEDICAID - OUT OF STATE MEDICAID - [place] [id number] Effective for all dates [address] [address] [place] [address] Medicaid MEDICARE WPS MEDICARE PART B [id number] 06/27/2020-Pre sent [address] [address] [place] [address] Medicare WELLCARE WELLCARE HMO POS MEDICARE ADV [id number] 07/28/2021-Pres ent [employer] PL[employer] [address] [address] [place] [address] Medicare-Man aged Care MEDICAID - OUT OF STATE MEDICAID - [place] PUBLIC [place] [id number] Effective for all dates [address] [address] [place] [address] Medicaid WELLCARE WELLCARE HMO POS MEDICARE ADV [id number] 07/28/2022-Pres ent [employer] PLANS [address] [address] [place] [address] Medicare-Man aged Care WELLCARE WELLCARE HMO POS MEDICARE ADV [id number] 07/28/2021-Pres ent [employer] PLANS [address] [address] [place] [address] Medicare-Man aged Care MEDICAID - OUT OF STATE MEDICAID - [place] [id number] Effective for all dates [address] [address] [place] [address] Medicaid WELLCARE WELLCARE HMO POS MEDICARE ADV [id number] 07/28/2021-Pres ent [employer] PLANS [address] [address] [place] [address] Medicare-Man aged Care MEDICAID - OUT OF STATE MEDICAID - [place] PUBLIC [place] [id number] Effective for all dates [address] [address] [place] [address] Medicaid WELLCARE WELLCARE HMO POS MEDICARE ADV [id number] 07/28/2021-Pres ent [employer] PLANS [address] [address] [place] [address] Medicare-Man aged Care MEDICAID - OUT OF STATE MEDICAID - [place] [id number] Effective for all dates [address] [address] [place] [address] Medicaid WELLCARE WELLCARE HMO POS MEDICARE ADV [id number] 07/28/2021-Pres ent [employer] PLANS [address] [address] [place] [address] Medicare-Man aged Care MEDICAID - OUT OF STATE MEDICAID [place] [id number] Effective for all dates [address] [address] [place] [address] Medicaid WELLCARE WELLCARE HMO POS MEDICARE ADV [id number] 07/28/2021-Pres ent [employer] PLANS [address] [address] [place] [address] Medicare-Man aged Care MEDICAID - OUT OF STATE MEDICAID [place] [id number] Effective for all dates [address] [address] [place] [address] Medicaid WELLCARE WELLCARE HMO POS MEDICARE ADV [id number] 07/28/2021-Pres ent [employer] PLANS [address] [address] [place] [address] Medicare-Man aged Care MEDICAID - OUT OF STATE MEDICAID - [place] [id number] Effective for all dates [address] [address] [place] [address] Medicaid WELLCARE WELLCARE HMO POS MEDICARE ADV [id number] 07/28/2021-Pres ent [employer] PL[employer] [address] [address] [place] [address] Medicare-Man aged Care MEDICAID - OUT OF STATE MEDICAID - [place] [id number] Effective for all dates [address] [address] [place] [address] Medicaid WELLCARE WELLCARE HMO POS MEDICARE ADV [id number] 07/28/2021-Pres ent [employer] PLANS [address] [address] [place] [address] Medicare-Man aged Care MEDICAID - OUT OF STATE MEDICAID - [place] [id number] Effective for all dates [address] [address] [place] [address] Medicaid WELLCARE WELLCARE HMO POS MEDICARE ADV [id number] 07/28/2021-Pres ent [employer] PL[employer] [address] [address] [place] [address] Medicare-Man aged Care MEDICAID - OUT OF STATE MEDICAID - [place] [id number] Effective for all dates [address] [address] [place] [address] Medicaid WELLCARE WELLCARE HMO POS MEDICARE ADV [id number] 07/28/2021-Pres ent [employer] PL[employer] [address] [address] [place] [address] Medicare-Man aged Care MEDICAID - OUT OF STATE MEDICAID - [place] [id number] Effective for all dates [address] [address] [place] [address] Medicaid WELLCARE WELLCARE HMO POS MEDICARE ADV [id number] 07/28/2021-Pres ent [employer] PLANS [address] [address] [place] [address] Medicare-Man aged Care MEDICAID - OUT OF STATE MEDICAID [facility] PUBLIC AID [id number] Effective for all dates [address] [address] [place] [address] Medicaid WELLCARE WELLCARE HMO POS MEDICARE ADV [id number] 07/28/2021-Pres ent [employer] PLANS [address] [address] [place] [address] Medicare-Man aged Care MEDICAID - OUT OF STATE MEDICAID - [place] [id number] Effective for all dates [address] [address] [place] [address] Medicaid WELLCARE WELLCARE HMO POS MEDICARE ADV [id number] 07/28/2021-Pres ent [employer] PLANS [address] [address] [place] [address] Medicare-Man aged Care MEDICAID - OUT OF STATE MEDICAID [facility] PUBLIC AID [id number] Effective for all dates [address] [address] [place] [address] Medicaid WELLCARE WELLCARE HMO POS MEDICARE ADV [id number] 07/28/2021-Pres ent [employer] PL[employer] [address] [address] [place] [address] Medicare-Man aged Care MEDICAID - OUT OF STATE MEDICAID - [place] [id number] Effective for all dates [address] [address] [place] [address] Medicaid WELLCARE WELLCARE HMO POS MEDICARE ADV [id number] 07/28/2021-Pres ent [employer] PL[employer] [address] [address] [place] [address] Medicare-Man aged Care MEDICAID - OUT OF STATE MEDICAID - [place] [id number] Effective for all dates [address] [address] [place] [address] Medicaid WELLCARE WELLCARE HMO POS MEDICARE ADV [id number] 07/28/2021-Pres ent [employer] PL[employer] [address] [address] [place] [address] Medicare-Man aged Care MEDICAID - OUT OF STATE MEDICAID - [place] [id number] Effective for all dates [address] [address] [place] [address] Medicaid WELLCARE WELLCARE HMO POS MEDICARE ADV [id number] 07/28/2021-Pres ent [employer] PL[employer] [address] [address] [place] [address] Medicare-Man aged Care MEDICAID - OUT OF STATE MEDICAID - [place] [id number] Effective for all dates [address] [address] [place] [address] Medicaid MEDICARE WPS MEDICARE PART B [id number] 06/27/2020-Pre sent [address] [address] [place] [address] Medicare MEDICAID - OUT OF STATE MEDICAID - [place] [id number] Effective for all dates [address] [address] [place] [address] Medicaid MEDICARE WPS MEDICARE PART B [id number] 06/27/2020-Pre sent [address] [address] [place] [address] Medicare MEDICAID - OUT OF STATE MEDICAID - [place] [id number] Effective for all dates [address] [address] [place] [address] Medicaid MEDICARE WPS MEDICARE PART B [id number] 06/27/2020-Pre sent [address] [address] [place] [address] Medicare MEDICAID - OUT OF STATE MEDICAID - [place] [id number] Effective for all dates [address] [address] [place] [address] Medicaid MEDICARE WPS MEDICARE PART B [id number] 06/27/2020-Pre sent [address] [address] [place] [address] Medicare MEDICAID - OUT OF STATE MEDICAID - [place] [id number] Effective for all dates [address] [address] [place] [address] Medicaid MEDICARE WPS MEDICARE PART B [id number] 06/27/2020-Pre sent [address] [address] [place] [address] Medicare MEDICAID - OUT OF STATE MEDICAID - [place] [id number] Effective for all dates [id number] [place] [address] Medicaid MEDICARE WPS MEDICARE PART B [id number] 06/27/2020-Pre sent [address] [address] [place] [address] Medicare MEDICAID - OUT OF STATE MEDICAID - [place] [id number] Effective for all dates [address] [place] [address] Medicaid MEDICAID - OUT OF STATE MEDICAID - [place] [id number] Effective for all dates [address] [place] [address] Medicaid MEDICAID - OUT OF STATE MEDICAID - [place] [id number] Effective for all dates [id number] [place] [address] Medicaid MEDICAID - OUT OF STATE MEDICAID - [place] [id number] Effective for all dates [id number] [place] [address] Medicaid MEDICAID - OUT OF STATE MEDICAID - [place] [id number] Effective for all dates [id number] [place] [address] Medicaid MEDICAID - OUT OF STATE MEDICAID - [place] [id number] Effective for all dates [address] [place] [address] Medicaid MEDICAID - OUT OF STATE MEDICAID - [place] [id number] Effective for all dates [address] [address] [place] [address] Medicaid MEDICAID - OUT OF STATE MEDICAID - [place] [id number] Effective for all dates [address] [address] [place] [address] Medicaid MEDICARE WPS MEDICARE PART B [id number] 06/27/2020-Pre sent [address] [address] [place] [address] Medicare MEDICARE WPS MEDICARE PART B [id number] 06/27/2020-Pre sent [address] [address] [place] [address] Medicare Advance Directives * Full Code (Latest Code Status on File) Date Activated Date Inactivated Comments 09/11/2020 11:47 PM 09/13/2020 3:46 PM * Full Code Date Activated Date Inactivated Comments 09/10/2020 11:11 AM 09/11/2020 7:25 PM Care Teams Sanitary Napkin Machine Tender Relationship Specialty Start Date End Date Unknown, Provider PCP - General 01/01/18
--- OUTSIDE RECORDS SUMMARY | 2024-10-01 06:51 | XMS_ITS | Encounter Summary ---
Author Organization [facility] Address [address] [place] [address] Phone Care Team Providers Care Explosive Ordnance Technician Name Role Phone Xander, Cecile Godinez APRN, SHARI Primary Care Provider Reason for Visit * Reason Onset Date Comments Appointment 04/01/2024 Encounter Details Date Type Department Care Team (Late st Contact Info) Description 04/01/2024 Telephone [facility] [address] [place] [address] Carlos Patino PTA [place] Appointment Social History Tobacco Use Types Packs/Day [...] on filedocumented in this encounter Care Teams Explosive Ordnance Technician Relationship Specialty Start Date End Date Cecile Terrell, HIGH SCHOOL MUSIC DIRECTOR, INSERTING MACHINE OPERATOR [address] [place] [address] PCP - General Advanced Practice Nurse 04/22/22 documented as of this encounter
--- OUTSIDE RECORDS SUMMARY | 2024-10-01 06:51 | XMS_ITS | Referral Summary ---
Author Organization [facility] A Address [address] [place] [address] Care Team Providers Care Home Restoration Service Supervisor Name Role Phone Cecile Terrell NP Primary Care Provider Encounters Date Type Department Care Team Description 09/21/2024 Orders Only [facility] Cardiology [address] [place] [address] Danielle Gaspar MD from Last 3 Months Allergies No known active allergies Medications albuterol [...] (07/24/2020): Added automatically from request for surgery [id number] Positive colorectal cancer s creening using DNA-based stool test 07/24/2020 Overview (07/24/2020): Added automatically from request for surgery [id number] PVD (peripheral vascular disease) (CMS/HCC) 02/2020 Assessment [...] on file Legal Sex Male 9:22 AM PHYSICAL TESTING SUPERVISOR Gender Identity Not on file Sexual Orientation Not on file Last Filed Vital Signs Vital Sign Reading Time Taken Comments Blood Pressure 114/70 03/13/2021 1:17 PM CDT Pulse 66 03/13/2021 1:17 PM CDT Temperature 36 C (96.8 F) 08/22/2020 2:57 PM PHYSICAL TESTING SUPERVISOR Respiratory Rate 14 03/13/2021 1:17 PM CDT Oxygen Saturation 100% 08/22/2020 2:57 PM PHYSICAL TESTING SUPERVISOR Inhaled Oxygen Concentration - - Weight 112.5 kg (248 lb) 04/03/2023 1:41 PM CDT Height 185.4 cm (6' 1 ) 04/03/2023 1:41 PM CDT Body Mass Index 32.72 04/03/2023 1:41 PM CDT Plan of Treatment Not on file Procedures Procedure Name Priority Date/Time Associated Diagnosis Comments CARDIOLOGY DOCUMENT SCAN Routine 09/08/2024 5:11 PM PHYSICAL TESTING SUPERVISOR EGFR Routine 03/27/2022 12:52 PM CDT HEMOGLOBIN A1C Routine 03/27/2022 12:52 PM CDT LIPID PANEL Routine 10/31/2021 11:45 AM CDT COLONOSCOPY 08/22/2020 1:47 PM PHYSICAL TESTING SUPERVISOR CTA ABDOMINAL AORTA AND BILATERAL ILIOFEMORAL RUNOFF Schedule Routine, Read Routine (OP Routine) 04/04/2020 4:17 PM CDT Claudication from Last 3 Months or Most Recently Relevant to Health Maintenance Results * Cardiology Document Scan (09/08/2024 5:11 PM PHYSICAL TESTING SUPERVISOR) Anatomical Region Laterality Modality Other us Danielle Gaspar MD [facility] PRO CEDURES Final Result * eGFR (03/27/2022 12:52 PM CDT) eGFR 77 mL/min/1. 73 m2 DALLIN WILCOX (TERRY) Comment: Interpretive Data Reference Interval Normal >/= [...] ES Final Result DALLIN WILCOX ([place]) 1 [facility] Department [place] [address] * (ABNORMAL) Hemoglobin A1c (03/27/2022 12:52 PM [...] and children were not included. (Diabetes Care 31:6866-9721, 2008). The eAG is not equivalent to a fasting glucose. Blood 03/27/2022 12:5 2 PM CDT 03/27/2022 3:20 PM CDT Jt Banegas MD LAB BLOOD ORDERABL ES Final Result DALLIN WILCOX ([place]) 1 [facility] Department [place] [address] * Lipid panel (10/31/2021 11:45 AM CDT) Cholesterol 159 30 - 199 mg/dL TAYLORGISELL BRENDEN ([place]) Comment: Interpretive Data Ages < or [...] on 2018. HDL 46 >=40 mg/dL DALLIN BROOKS H ([place]) Comment: Interpretive Data Ages < or [...] 2018. Chol/HDL ratio 3 ANGELA Lainez BRENDEN ([place]) Blood 10/31/2021 11:4 5 AM CDT 10/31/2021 12:09 PM CDT Jt Banegas MD LAB BLOOD ORDERABL ES Final Result DALLIN BRENDEN (TERRY) 1 [facility] Department [place] [address] * COLONOSCOPY (08/22/2020 1:47 PM PHYSICAL TESTING SUPERVISOR) Anatomical Region Laterality Modality Other Narrative Procedure Note Ignacio Landers MD - 08/22/2020 1:47 PM CST [facility] Patient Name: Philip Barron Procedure Date: 08/22/2020 1:47 PM Date of : 1955 Admit Type: Outpatient Age: 65 Gender: Male Attending MD: Ignacio Landers M.D. Room: [facility] ENDOSCOPY ROOM 1 Note Status: [...] passed under direct vision.The Pediatric Colonoscope [id number] was introduced through the anus and advanced [...] 1:47 PM Procedure Code(s): --- Professional --- 02191, Colonoscopy, flexible; with biopsy, single or multiple Diagnosis Code(s): --- Professional --- Z12.11, Encounter for screening for malignant neoplasm of colon K64.8, Other hemorrhoids D12.5, Benign neoplasm of sigmoid colon K57.30, Diverticulosis of large intestine without perforation orabscess without bleeding CPT copyright 2017 [employer]. All rights reserved. The codes documented in this report are preliminary and upon bulbs farmworker reviewmay be revised to meet current compliance requirements. Recognized by the [employer] for promoting quality [...] Recently Relevant to Health Maintenance Insurance MEDICARE [facility] Address: [address] [address] [place] [address] [facility] MANAGED MEDICARE GENERIC RISK OTHER [employer] MEDICARE HMO [facility] [place] Advance Directives For more information, please contact: [phone] * Full Code (Latest Code Status on File) Date Activated Date Inactivated Comments 08/22/2020 1:38 PM 08/22/2020 7:14 PM * Full Code Date Activated Date Inactivated Comments 08/22/2020 1:38 PM 08/22/2020 1:38 PM Care Teams Home Restoration Service Supervisor Relationship Specialty Start Date End Date Cecile Terrell NP [address] [address] PCP - General Family Medicine 03/13/21
--- OUTSIDE RECORDS SUMMARY | 2024-10-01 06:52 | XMS_ITS | Data Portability ---
Author Organization [facility] AMIESugar Address [address] [place] [address] Care Team Providers Care Form Raiser Name Role Phone RYLEE, CECILE Primary Care [...] office today, accompanied by caregiver, for a khix-pr-qved appointment regarding the need for a powered [...] DO Not Attach Compendium, Do Not Delete/merge, [id number] 12:31:30 HbA1c (hemoglob in A1c), blood 2023 024 [facility], [address] [facility] [address], [place], [address], 11:14:59 lipid panel, serum 2023 024 [facility], [address] [place] [address] 2, [place], [address], 4 11:14:59 PSA, total, serum or plasma 2023 024 [facility], [address] [place] [address] 2, [place], [address], 11:14:59 CMP, serum or plasma 2023 024 [facility], [address] [place] [address], [place], [address], 11:14:59 CBC w/ auto diff 2023 024 [facility], [address] [place] [address], [place], [address], 11:14:59 CBC w/ auto diff 2023 024 [email or web address] [facility] [address] [place], [address], 12:56:51 ige, total, serum 2023 024 [email or web address] [facility] [address] [place], [address], 12:57:29 Referral podiatris t referral 2023 024 [email or web address] [facility], [facility], [address] [place] [address], [address], 13:38:43 gastroent erologist referral 2023 024 [email or web address] Singletary MD, [address] [facility], [address], [place], [address], 4 12:59:51 physical therapist referral [address] [facility], [address] [facility], [address], [place], [address], 4 12:06:29 podiatris t referral 2023 024 SOCO Prado DPM, [address] [facility], [facility] [address], [place], [address], 4 15:08:08 Procedures pulmonary stress test, simple (PROC) - 6 Minute Walk Test 2023 024 [facility], [address] [place] [address], [address], 5 05:01:11 polysomno graphy, split night (PROC) 2023 024 [facility], [address] [place] [address], [address], 5 05:01:11 Surgeries None recorded. Imaging LDCT, chest, for lung cancer screening 2023 024 [facility], [address] [place] [address], [address], 4 09:55:58 PFT, complete - W/ Post Bronchodi lator Spirometr y 2023 024 [facility], [address] [place] [address], [address], 4 05:01:06 Medication Orders amoxicill in 875 mg tablet 2023 024 [facility]478, [address] , [place], [place], [id number], 4 12:19:48 bupropion HCl XL 150 mg 24 hr tablet, extended release [address] [facility]83898, [address] [facility], [place], [place], [id number], 4 12:24:31 albuterol sulfate HFA 90 mcg/actua tion aerosol inhaler 2023 024 [facility] #48931, [address] [facility], [place], [place], [id number], 4 11:01:18 bupropion HCl XL 150 mg 24 hr tablet, extended release [address] [facility] #33736, [address] [facility], [place], [place], [id number], 4 14:33:14 Symbicort 160 mcg-4.5 mcg/actua tion HFA aerosol inhaler 2023 024 [facility] #07789, [address] [facility], [place], [place], [id number], 4 10:46:50 doxycycli ne monohydra te 100 mg tablet 2023 024 [facility], [address] [facility], [place], [place], [id number], 4 10:46:01 prednison e 10 mg tablets in a dose pack 2023 024 [facility] #69445, [address] [place], [place], [id number], 4 10:46:55 albuterol sulfate HFA 90 mcg/actua tion aerosol inhaler 2023 024 [facility] #51329, [address] [place] [address], [id number], 12:02:57 Patient TargetsNo targets recorded. Patient Instructions Encounter Date Encounter Id Patient Instructions Last Modified By Organization Details Last Modified Time 08/21/2023 [id number] - Always present to ER or Urgent Care with any progression of/alarming symptoms, significant changes in symptoms or any concerning or urgent matters Not available 08/23/2023 13:17:26 10/27/2023 [id number] Quitting Tobacco : Care Instructions ajamous Not available 10/27/2023 10:46:37 chronic obstructive pulmonary disease (COPD): care instructions ajamous Not available 10/27/2023 10:46:37 learning about chronic bronchitis ajamous Not available 10/27/2023 10:46:38 12/18/2023 [id number] Quitting Tobacco : Care Instructions Not available 12/20/2023 19:55:20 advance care planning: care instructions Not available 12/18/2023 11:08:50 preventing falls : care instructions Not available 12/18/2023 11:08:51 Quitting Tobacco : Care Instructions Not available 12/18/2023 11:08:51 [facility] Prevent[facility] Checklist Not available 12/18/2023 11:08:51 eating healthy foods: care instructions Not available 12/18/2023 11:08:51 AD8 Dementia Screening Interview Not available 12/18/2023 11:08:51 A healthy lifestyle: care instructions Not available 12/18/2023 11:08:50 - Always present to ER or Urgent Care with any progression of/alarming symptoms, significant changes in symptoms or any concerning or urgent matters Not available 12/18/2023 11:00:29 01/20/2024 [id number] - Always present to ER or Urgent Care with any progression of/alarming symptoms, significant changes in symptoms or any concerning or urgent matters Not available 01/20/2024 10:39:56 02/19/2024 [id number] - Always present to ER or Urgent Care with any progression of/alarming symptoms, significant changes in symptoms or any concerning or urgent matters Not available 02/19/2024 12:17:04 Reason for Referral Window Draper Referral for Type 2 diabetes mellitus Referring Physician: Cecile Mckee [facility] [place], Encounter Date: 08/21/2023 Physical Therapist Referral for Cerebrovascular accident Referring Physician: Cecile Mckee [facility] [place], Encounter Date: 08/21/2023 Engineering Teacher Referral for History of polyp of colon Referring Physician: Cecile Mckee [facility] [place], Encounter Date: 12/18/2023 Window Draper Referral for Type 2 diabetes mellitus Referring Physician: Cecile Mckee [facility] [place], Encounter Date: 12/18/2023 Results Created Date Observation Date Name Description Value Unit Range Abnormal Flag Note LastModifiedBy Organization Detail LastModifiedTime 02/19/20 24 02/19/2024 HbA1c (hemo globi n A1c), blood HbA1c 6.6 Not Available In-Office Order Internal Use Only DO Not Attach Compendium DO Not Attach Compendium, Do Not Delete/merge, [id number] 02/19/2024 12:12:02 09/08/1909/07/2024 XR, chest , 2 view No observ ation record ed. [facility] [address] [facility] [address], [place], [address], 09/22/2024 21:32:08 Result Notes None recorded. Problems Name Problem SNOMED Code Status Onset Date Resolution Date Notes Provider Name and Address Organization Details Recorded Time Type 2 diabetes mellitus 52130519 Active 2017 Not Available [facility] 2 22:01:02 Well controlled type 2 diabetes mellitus 567552161 Active 2017 Not Available [facility] 2 22:01:02 Feeling suicidal 453131507 Active 2017 Not Available [facility] 2 22:01:02 Pain in bilateral legs 5351482056868 9108 Active 2017 Not Available [facility] 2 22:01:02 Foot callus 234039038 Active 2017 Not Available [facility] 2 22:01:02 Neuropathy 691597541 Active 2018 Not Available [facility] 22:01:02 Pain in bilateral lower legs 0250508093345 9106 Active 2018 Not Available [facility] 22:01:02 Insomnia 024340022 Active 2019 Not Available [facility] 22:01:02 Peripheral vascular disease 925859500 Active 2019 Not Available [facility] 2 22:01:02 Body mass index 30+ - obesity 556299456 Active 2021 Not Available [facility] 22:01:02 Dizziness 441141677 Active 2022 CECILE MCKEE NP Attn: Accounting ,[address] [place], [address] , [place] [facility] 3 11:55:08 Cerebrovas cular accident 548466525 Active 2022 CECILE MCKEE NP Attn: Accounting ,[address] [place], [address] , [place] [facility] 4 16:28:56 Hyperlipid emia 01353830 Active 2023 CECILE MCKEE NP Attn: Accounting ,[address] [place], [address] , [place] [facility] 4 11:08:40 Impaired mobility 94218334 Active 2023 CECILE MCKEE NP Attn: Accounting ,[address] [place], [address] , [place] [facility] 4 14:34:08 Chronic obstructiv e pulmonary disease 49599131 Active Not Available [facility] 2 22:01:02 Essential hypertensi on 81476288 Active Not Available [facility] 2 22:01:02 Tobacco user 702170631 Active Not Available [facility] 2 22:01:02 Blood glucose outside reference range 872945903 Active Not Available [facility] 22:01:02 Dyspnea 846707744 Active Not Available [facility] 22:01:02 Problem Notes None recorded. Procedures Surgical History None recorded. Imaging Results Imaging Date Name Status LastModified by Organiz ation Details LastModified Time 09/07/2024 XR, chest, [address] [facility] [address], [place], [address], 09/22/2024 21:32:08 Procedure Notes None recorded. Medical Equipment None [...] Not Available Not Available No t Available betamethaso ne dipropionat e 0.05 % topical [...] BY MOUTH EVERY DAY, NEEDS TO SCHEDULE AND KEEP APPOINTME NT WITH PCP FOR ADDITIONA L REFILLS 2024 active Not Available Not Available Not Avai lable hydrochloro thiazide 12.5 mg tablet TAKE 1 TABLET BY MOUTH EVERY DAY, NEED TO SCHEDULE APPOINTME NT WITH PCP FOR ADDITIONA L REFILLS 2024 active Not Available Not Available Not Avai lable Symbicort 80 mcg-4.5 mcg/actuati on HFA aerosol [...] twice a day by inhalatio n route. 2024 active Not Available Not Available Not Avai lable Vitals Date Recorded Body height Body mass index (BMI) Body weight Oxygen saturation Oxygen saturation in Arterial blood by Pulse oximetry Heart rate Respiratory rate Body temperature Systolic blood pressure Diastolic blood pressure Provider Name and Address Organization Details Last Updated DateTime 4 186.69 cm 31.8 kg/m2 933022. 89 g 97 % 97 % 78 [...] 185.42 cm 0 98.4 [degF] 31.4 kg/m2 774132. 98 g 96 % 96 % 76 /min 18 /min 120 mm[Hg] 72 mm[Hg] Cecile Jasso LPN [facility] 4 10:00:23 Date Recorded Body height Respiratory rate Body mass index (BMI) Body weight Body temperature Heart rate Oxygen saturation Oxygen saturation in Arterial blood by Pulse oximetry Systolic blood pressure Diastolic blood pressure Provider Name and Address Organization Details Last Updated DateTime 4 185.42 cm 16 /min 31.6 kg/m2 713145. 73 g 97.1 [degF] 77 /min 94 % 94 % 115 mm[Hg] 70 mm[Hg] Kallie [facility] 4 10:53:57 Date Recorded Body height Respiratory rate Body mass index (BMI) Body weight Body temperature Heart rate Oxygen saturation Oxygen saturation in Arterial blood by Pulse oximetry Systolic blood pressure Diastolic blood pressure Provider Name and Address Organization Details Last Updated DateTime 4 185.42 cm 16 /min 31.8 kg/m2 179166. 11 g 96.9 [degF] 89 /min 91 % 91 % 126 mm[Hg] 75 mm[Hg] [facility] 4 10:36:24 Date Recorded Body height Respiratory rate Body mass index (BMI) Body weight Body temperature Heart rate Oxygen saturation Oxygen saturation in Arterial blood by Pulse oximetry Systolic blood pressure Diastolic blood pressure Provider Name and Address Organization Details Last Updated DateTime 4 185.42 cm 16 /min 30.7 kg/m2 751892. 88 g 96.9 [degF] 68 /min 97 % 97 % 147 mm[Hg] 84 mm[Hg] Kallie Loera [facility] 4 12:06:25 Date Recorded Systolic blood pressure Diastolic blood pressure Provider Name and Address Organization Details Last Updated DateTime 02/19/2024 131 mm[Hg] 82 mm[Hg] CECILE MCKEE NP Attn: Accounting,[address] [place], [address], [facility] 02/19/2024 12:24:27 Social History Question Answer Notes LastModified by Organizat ion Details LastModified Time Tobacco Smoking Status Current Every Day Smoker Yesy Aguirre MA null, [facility] 04/26/2015 10:19:30 Do You Have An [...] Do You Have A Medical Power Of Hand Washer? No Information not available 10/27/2023 What Was [...] Anxious, Or Unable To Sleep At Night)? [id number] Information not available 10/26/2020 Do You Use [...] virus, quadrivalent, preservative 8 completed Not Available [facility] 02/12/2022 22:01:02 Influenza, split virus, quadrivalent, preservative 9 completed Not Available [facility] 08/21/2023 11:12:24 Influenza, split virus, quadrivalent, preservative 0 completed Not Available [facility] 08/21/2023 11:12:24 COVID-19, mRNA, LNP-S, PF, 100 mcg/0.5mL dose or 50 mcg/0.25mL dose 1 completed CECILE MCKEE, POWER BRAKE OPERATOR Attn: Accounting,[address] [facility], [place], [address] [place] [address], [place] [facility] 07/16/2022 12:34:00 Influenza, split virus, quadrivalent, preservative 1 completed Not Available [facility] 08/21/2023 11:12:24 pneumococcal polysaccharide PPV23 2 completed CECILE MCKEE POWER BRAKE OPERATOR Attn: Accounting,[address] [place], [address] [place] [address], [place] [facility] 07/16/2022 12:34:00 Influenza, split virus, quadrivalent, preservative 5 completed CECILE MCKEE POWER BRAKE OPERATOR Attn: Accounting,[address] [place], [address], [place] [facility] 07/16/2022 12:34:00 Influenza, split virus, quadrivalent, preservative 9 completed CECILE MCKEE, POWER BRAKE OPERATOR Attn: Accounting[address] [place], [address] [place] [address], [place] [facility] 07/16/2022 12:34:00 Tdap 8 completed CECILE MCKEE, POWER BRAKE OPERATOR Attn: Accounting[address] [place], [address] [place] [address], [place] [facility] 07/16/2022 12:34:00 Influenza, split virus, quadrivalent, PF 1 completed CECILE MCKEE, POWER BRAKE OPERATOR Attn: Accounting,[address] [place], [address] [place] [address], [place] [facility] 07/16/2022 12:34:00 Influenza, split virus, quadrivalent, PF 0 completed CECILE MCKEE, POWER BRAKE OPERATOR Attn: Accounting,[address] [place], [address] [place] [address], [place] [facility] 07/16/2022 12:34:00 Tdap 8 completed CECILE MCKEE, POWER BRAKE OPERATOR Attn: Accounting,[address] [place], [address] [place] [address], [place] [facility] 07/16/2022 12:34:00 Influenza, adjuvanted, quadrivalent, PF 2 completed CECILE MCKEE, POWER BRAKE OPERATOR Attn: Accounting[address] [place], [address] [place] [address], [place] [facility] 07/16/2022 12:39:32 Influenza, high-dose, quadrivalent, PF 3 completed CECILE MCKEE, POWER BRAKE OPERATOR Attn: Accounting[address] [place], [address] [place] [address], [place] [facility] 07/03/2023 11:18:46 Pneumococcal conjugate PCV20, polysaccharide [id number] conjugate, adjuvant, PF 3 completed CECILE MCKEE, POWER BRAKE OPERATOR Attn: Accounting,[address] [place], [address] [place] [address], [place] [facility] 07/03/2023 11:18:46 COVID-19, mRNA, LNP-S, PF, haritha-sucrose, 30 mcg/0.3 mL 3 completed CECILE MCKEE, POWER BRAKE OPERATOR Attn: Accounting[address] [place], [address] [place] [address], [place] [facility] 07/03/2023 11:18:46 COVID-19, mRNA, LNP-S, PF, 100 mcg/0.5mL dose or 50 mcg/0.25mL dose 1 completed [place], [place] [facility] 11/03/2020 12:23:21 COVID-19, mRNA, LNP-S, PF, 100 mcg/0.5mL dose or 50 mcg/0.25mL dose completed Ahmet Rodriguez MA [place], [place] [facility] 12/01/2020 16:10:47 Past Encounters Encounter ID Performer Location Encounter Start Date Encounter Closed Date Diagnosis/Indication Diagnosis SNOMED-CT Code Diagnosis ICD10 Code Diagnosis Note [id number] Tatianna Lindsay [facility] [address] [place] [id number] 04/26/2015 10:05:11 04/26/2015 14:16:21 Chronic obstructive pulmonary disease 58730053 Essential hypertension 83941957 Tobacco user 036460655 Adult heal th examination 782081205 Screening for malignant neoplasm of prostate 301799698 Influenza vaccine needed 5901541639 [id number] Vineet Lindsay [facility] [address] [place] [address] 1 11/02/2015 10:18:01 11/02/2015 12:26:48 Dyspnea 008404162 R06.00 Chronic ob structive pulmonary disease 91029397 J44.9 Tobacco user 478056212 Z 72.0 [id number] Vineet Lindsay [facility] [address] [place] [address] 1 11/16/2015 15:08:14 11/17/2015 09:40:13 Dyspnea 900359340 R06.00 Chronic ob structive pulmonary disease 02022119 J44.9 Essential hypertension 24221930 I10 [id number] Vineet Conklin [facility] [address] [place] [address] 03/13/2017 14:24:48 03/14/2017 10:04:56 Chronic obstructive pulmonary disease 77679657 J44.9 Tobacco user 659429687 Z 72.0 Essential hypertension 58793907 I10 Adult heal th examination 583710270 Z00.00 [id number] Lincoln Hollis MD [facility] [address] [place] [address] 08/19/2017 16:17:27 08/21/2017 11:22:41 Essential hypertension 19472198 I10 Blood gluc ose outside reference range 348046990 R73.09 Chronic ob structive pulmonary disease 35500190 J44.9 Hyperglycemia 69468810 R 73.9 Soft tissu e lesion of foot region 667749550 M79.9 Smoker 57368387 F17.372 [id number] Vineet Lindsay [facility] [address] [place] [address] 10/13/2017 14:01:00 10/14/2017 11:16:44 Chronic obstructive pulmonary disease 55723582 J44.9 Tobacco user 595996654 Z 72.0 Essential hypertension 85229014 I10 Well contr olled type 2 diabetes mellitus 530764097 E11.9 Serum crea tinine above reference range 257306579 R79.89 [id number] Vineet Anderson 14 IM [address] [facility] [place] [address] 02/04/2018 14:12:52 02/17/2018 09:42:19 Tobacco user 605198114 Z72.0 Chronic ob structive pulmonary disease 52244533 J44.9 Well contr olled type 2 diabetes mellitus 193559979 E11.9 Essential hypertension 64629283 I10 Pain in bi lateral legs 3635888150 7977007 M79.604 M79.695 [id number] Vineet Anderson 14 IM [address] [facility] [address] [place] [address] 03/09/2018 13:34:57 03/11/2018 10:22:53 Feeling suicidal 540815452 R45.851 Recent hospitaliz ation at [facility] Has f/u with psych gissel. Pain in bi lateral legs 7791330942 2887497 M79.604 M79.605 Has f/u with cardiology [id number] Vineet Anderson 14 IM [address] [facility] [place] [address] 04/01/2018 12:39:27 04/02/2018 14:54:46 Foot callus 803224305 L84 [id number] Vineet Anderson 14 IM 4 [facility] [place] [address] 06/17/2018 15:37:43 06/20/2018 11:14:15 Tobacco user 489338960 Z72.0 Chronic ob structive pulmonary disease 13791139 J44.9 Well contr olled type 2 diabetes mellitus 289208216 E11.9 Essential hypertension 60395731 I10 [id number] Vineet Anderson 14 IM 4 [facility] [place] [address] 10/13/2018 14:32:52 10/14/2018 09:24:56 Tobacco user 055895021 Z72.0 Chronic ob structive pulmonary disease 37749570 J44.9 Well contr olled type 2 diabetes mellitus 573880941 E11.9 Essential hypertension 23825737 I10 Preparatio n of medical certificate 083921611 Z02.79 Surgical clearance for cataract [id number] THU Atkinson 14 IM [address] [facility] [place] [address] 01/25/2019 10:51:18 01/26/2019 11:29:54 Tobacco user 937777244 Z72.0 Chronic ob structive pulmonary disease 48593343 J44.9 Well contr olled type 2 diabetes mellitus 758173510 E11.9 Essential hypertension 44606673 I10 Neuropathy 520336314 G62 .9 Pain in bi lateral lower legs 4290849740 0676220 M79.661 M79.382 [id number] THU Atkinson 14 IM [address] [facility] [place] [address] 03/11/2019 15:09:34 03/12/2019 12:24:54 Pain in bilateral lower legs 7691147980 1600540 M79.661 M79.662 Essential hypertension 25609034 I10 Acute exac erbation of chronic obstructive pulmonary disease 525290721 J44.1 Order nebulizer machine [id number] THU Atkinson 14 IM [address] [facility] [place] [address] 06/10/2019 14:11:23 06/11/2019 10:06:10 Tobacco user 578361883 Z72.0 Chronic ob structive pulmonary disease 37342380 J44.9 Well contr olled type 2 diabetes mellitus 383417248 E11.9 Essential hypertension 07578748 I10 Neuropathy 290301280 G62 .9 [id number] Vineet Anderson 14 IM [address] [facility] [place] [address] 10/27/2019 08:02:43 10/28/2019 14:24:19 Tobacco user 113090575 Z72.0 Chronic ob structive pulmonary disease 28595274 J44.9 Neuropathy 258741859 G62 .9 Type 2 dinorah betes mellitus 84732650 E11.9 Essential hypertension 97621021 I10 Insomnia 624343703 G47.0 0 Peripheral vascular disease 039295426 I73.9 [id number] Vineet Chaneychiki Anderson 14 IM [address] [facility] [address] [place] [address] 01/26/2020 09:21:05 01/31/2020 17:16:46 Tobacco user 788662415 Z72.0 Chronic ob structive pulmonary disease 68246800 J44.9 Insomnia 819197391 G47.0 0 Neuropathy 965935531 G62 .9 Type 2 dinorah betes mellitus 25412064 E11.9 Essential hypertension 99948608 I10 [id number] THU Atkinson 14 IM [address] [facility] [address] [place] [address] 06/08/2020 14:59:58 06/09/2020 21:02:34 Tobacco user 388261940 Z72.0 Chronic ob structive pulmonary disease 18667833 J44.9 Insomnia 852876170 G47.0 0 Neuropathy 065531710 G62 .9 Peripheral vascular disease 138274443 I73.9 Type 2 dinorah betes mellitus 84757409 E11.9 Essential hypertension 20775274 I10 Screening for malignant neoplasm of colon 272070144 Z12.11 [id number] Lea Armenta MA [facility] [address] [place] [address] 10/26/2020 10:35:42 10/30/2020 14:39:24 Essential hypertension 92109149 I10 - b/p in office today 158/100 - Continue medication as prescribed and diet/exerc ise as previously discussed. - Take occasional BP s, call if consistent ly >140/90. - Discussed reasons for sooner f/u than months. - Patient verbalizes understand ing. Type 2 dinorah betes mellitus 35820520 E11.21 - Educated on goal of blood [...] 3 months * 6 months}} Tobacco user 019140052 Z 72.0 - Patient is a current cigarette smoker, states he smokes 1 pk per day and currently has no desire to quit. - Patient advised in the derogatory effects of smoking - Counseling for smoking cessation completed Screening for malignant neoplasm of prostate 926413847 Z12.5 Chronic ob structive pulmonary disease 26716895 J44.9 - Encouraged and educated on the importance of pneumonia and influenza vaccinatio n. - Encouraged good pulmonary hygiene. Patient to notify provider if condition worsens or report immediatel y to ED with respirator y distress. - RTC in 3 months. (unstable 1 month) [id number] EEDN Henning 14 IM 4 [facility] [address] [address] 11/03/2020 11:14:51 11/04/2020 11:11:19 Administration of SARS-CoV-2 antigen vaccine 304477648 Z23 [id number] CECILE MCKEE NP [facility] [address] [place] [address] 11/16/2020 11:38:47 11/17/2020 14:23:23 Complaining of erectile dysfunction 182088808 N52.9 Essential hypertension 19885862 I10 - b/p in office today 156/70 - Continue medication as prescribed and diet/exerc ise as previously discussed. - Take occasional BP s, call if consistent ly >140/90. - Discussed reasons for sooner f/u than months. - Patient verbalizes understand ing. Chronic ob structive pulmonary disease 16523178 J44.9 - Encouraged and educated on the importance of pneumonia and influenza vaccinatio n. - Encouraged good pulmonary hygiene. Patient to notify provider if condition worsens or report immediatel y to ED with respirator y distress. - RTC in 3 months. (unstable 1 month) [id number] Maddi Zambrano LPN [facility] [facility] [address] [place] [address] 12/01/2020 15:54:01 12/18/2020 15:34:43 Administration of SARS-CoV-2 antigen vaccine [id number] Z23 [id number] MILY DAMON 14 IM [address] [facility] [address] [place] [address] 03/12/2021 11:39:24 03/19/2021 15:36:34 Essential hypertension 38506814 I10 - b/p in office today 156/70, patient states he had not taken his medication . - Continue medication as prescribed and diet/exerc ise as previously discussed. - Take occasional BP s, call if consistent ly >140/90. - Discussed reasons for sooner f/u than months. - Patient verbalizes understand ing. Serum thyr oid stimulating hormone level outside reference range 686171503 R79.89 Renewal of prescription 813053284 Z76.0 [id number] MILY DAMON 14 IM [address] [facility] [address] [place] [address] 08/20/2021 11:40:17 08/23/2021 13:13:04 Essential hypertension 00656295 I10 - b/p in office today 130/78 - Continue medication as prescribed and diet/exerc ise as previously discussed. - Take occasional BP s, call if consistent ly >140/90. - Discussed reasons for sooner f/u than months. - Patient verbalizes understand ing. Well contr olled type 2 diabetes mellitus 914080890 E11.9 - Educated on goal of blood [...] month 3 months 6 months*}} Tobacco user 431100194 Z 72.0 - Patient is a current cigarette smoker, states he smokes 1/4 pk per day and currently has no desire to quit. - Patient advised in the derogatory effects of smoking - Counseling for smoking cessation completed Administra tion of pneumococcal vaccine 61329876 Z23 - recommende d annual pneumococc al vaccinatio n Chronic ob structive pulmonary disease 19677641 J44.9 - Encouraged and educated on the importance of pneumonia and influenza vaccinatio n. - Encouraged good pulmonary hygiene. Patient to notify provider if condition worsens or report immediatel y to ED with respirator y distress. - RTC in 3 months. (unstable 1 month) [id number] CECILE MCKEE NP [facility] [address] [place] [address] 10/18/2021 10:05:10 10/23/2021 11:14:29 Pre-surgery evaluation 941412647 Z01.818 - Scheduled for Aif on 11/[address] Waters Chronic ob structive pulmonary disease 18840279 J44.9 - Encouraged and educated on the importance of pneumonia and influenza vaccinatio n. - Encouraged good pulmonary hygiene. Patient to notify provider if condition worsens or report immediatel y to ED with respirator y distress. - RTC in 3 months. (unstable 1 month) Tobacco user 476858090 Z 72.0 - Patient is a current cigarette smoker, states he smokes 1/4 pk per day and currently has no desire to quit. - Patient advised in the derogatory effects of smoking - Counseling for smoking cessation completed [id number] MILY GASTON (Adult Med) [address] [place] [address] 03/15/2022 14:36:11 03/18/2022 12:01:54 Chronic obstructive pulmonary disease 04135065 J44.[address] [facility] Lu pickering, 6 min walk Dyspnea on exertion 6084 5006 R06.09 Echo, r/o PHTN Body mass index 30+ - obesity 473851150 Z68.32 Nicotine dependence 5629 4008 Z87.891 down to 5 cigarettes a day for past 4 months1/2 ppd for 50 years, 25 PYH Snoring 87251347 R06.83 Overnight oximetry study pending, may need sleep study Essential hypertension 03714832 I10 [id number] MILY DAMON [facility] [address] [place] [address] 01/15/2022 11:19:53 01/16/2022 11:29:57 Essential hypertension 73824418 I10 - b/p in office today 128/72 - Continue medication as prescribed and diet/exerc ise as previously discussed. - Take occasional BP s, call if consistent ly >140/90. - Discussed reasons for sooner f/u than months. - Patient verbalizes understand ing. Type 2 dinorah betes mellitus 07241971 E11.21 - Educated on goal of blood [...] month 3 months 6 months*}} Tobacco user 922579171 Z 72.0 - Patient is a current cigarette smoker, states he smokes 1/4 pk per day and currently has no desire to quit. - Patient advised in the derogatory effects of smoking - Counseling for smoking cessation completed Body mass index 30+ - obesity 272435434 Z68.31 advised low fat, low cholestero l, low carb diet, regular exercise and weight reduction. Positive s creening for depression on PHQ-9 (Patient Health Questionnaire 9) 9932320419 09055 Z13.89 - Discussed symptoms of depression /anxiety as well as the different treatment types.- All questions and concerns were addressed. - Pt is to monitor symptoms and RTC sooner if symptoms are worsening or not improving. [id number] CECILE MCKEE NP [facility] [address] [place] [address] 07/16/2022 12:07:46 07/17/2022 14:49:46 Essential hypertension 01608405 I10 - b/p in office today 148/86. Patient states he has not been taking Lisinopril . - Continue medication as prescribed and diet/exerc ise as previously discussed. - Take occasional BP s, call if consistent ly >140/90. - Discussed reasons for sooner f/u than months. - Patient verbalizes understand ing. Tobacco user 370465464 Z 72.0 - Patient is a current cigarette smoker, states he smokes 1/4 pk per day and currently has no desire to quit. - Patient advised in the derogatory effects of smoking - Counseling for smoking cessation completed Obesity 120413517 E66.9 advised low fat, low cholestero l, low carb diet, regular exercise and weight reduction. Type 2 dinorah betes mellitus 97677580 E11.21 - Educated on goal of blood [...] 3 months 6 months*}} Renewal of prescription 339639361 Z76.0 [id number] Lincoln Hollis MD [facility] [address] [place] [address] 09/02/2022 10:40:43 09/04/2022 09:44:15 Tobacco user 569326414 Z72.0 - Patient is a current cigarette smoker, states he smokes 1/4 pk per day and currently has no desire to quit. - Patient advised in the derogatory effects of smoking - Counseling for smoking cessation completed Essential hypertension 27666558 I10 - b/p in office today 148. Patient states he has not been taking Lisinopril . - Continue medication as prescribed and diet/exerc ise as previously discussed. - Take occasional BP s, call if consistent ly >140/90. - Discussed reasons for sooner f/u than months. - Patient verbalizes understand ing. Dizziness 160493302 R42 - Patient reports improvemen t of dizzy spells after he eats sugar.- Patient encourage to check blood sugar and blood pressure the next time he has an episode of dizziness. VU.- RTC for new or worsening symptoms. Type 2 dinorah betes mellitus 10678846 E11.21 - Educated on goal of blood [...] weeks 1 month 3 months 6 months*}} [id number] CECILE MCKEE NP [facility] [address] [place] [address] 09/18/2022 15:06:47 09/19/2022 09:55:38 Essential hypertension 53942519 I10 - b/p in office today 161/92 - Continue medication as prescribed and diet/exerc ise as previously discussed. - Take occasional BP s, call if consistent ly >140/90. - Discussed reasons for sooner f/u than months. - Patient verbalizes understand ing. History of syncope 83624 59460 90952 Z86.79 - r/o cardiac etiology Hemiparesis 08653899 G81 .91 - Patient advised to present to ER to r/o CVA [id number] MILY GASTON (Adult Med) [address] [place] [address] 10/30/2022 11:50:21 10/31/2022 09:15:42 Chronic obstructive pulmonary disease 55970369 J44.9 [facility] 160 mcg Nicotine dependence 5629 4008 Z87.891 1/2 ppd for 50 years, 25 PYWill order LDCT, lung cancer screening. Discussed risk/benef its, importance of annual screening adherence, and smoking cessation. Body mass index 30+ - obesity 261324668 Z68.32 Essential hypertension 43205995 I10 Controlled [id number] CECILE MCKEE NP [facility] [address] [place] [address] 11/19/2022 11:05:52 11/20/2022 11:02:15 Essential hypertension 84640646 I10 - b/p in office today 150/73 - Continue medication as prescribed and diet/exerc ise as previously discussed. - Take occasional BP s, call if consistent ly >140/90. - Discussed reasons for sooner f/u than months. - Patient verbalizes understand ing. Tobacco user 700086480 Z 72.0 - Patient is a current cigarette smoker, states he smokes 1.5 pk per day and currently has no desire to quit. - Patient advised in the derogatory effects of smoking - Counseling for smoking cessation completed Type 2 dinorah betes mellitus 75335066 E11.21 - Educated on goal of blood [...] 3 months 6 months*}} Cerebrovas cular accident 306668297 I63.9 - Bettye, the patient's niece, reports that the patient has an appointmen t with a neurologis t on 12/21/2022 but cannot recollect the name. [id number] CECILE MCKEE NP [facility] [address] [place] [address] 12/31/2022 11:05:21 01/03/2023 14:55:02 Essential hypertension 68563465 I10 - b/p in office today 151/82 - Continue medication as prescribed and diet/exerc ise as previously discussed. - Take occasional BP s, call if consistent ly >140/90. - Discussed reasons for sooner f/u than 6 months. - Patient verbalizes understand ing. Type 2 dinorah betes mellitus 23156478 E11.21 - Educated on goal of blood [...] 3 months 6 months*}} Cerebrovas cular accident 096919240 I63.9 - Bettye niece reports patient needs assistance with (cooking, dressing, cleaning) Upper resp iratory infection 54051023 J06.9 [id number] CECILE MCKEE NP [facility] [address] [place] [address] 07/03/2023 11:06:35 07/29/2023 14:05:51 Chronic obstructive pulmonary disease 09391148 J44.9 - Encouraged and educated on the importance of pneumonia and influenza vaccinatio n. - Encouraged good pulmonary hygiene. Patient to notify provider if condition worsens or report immediatel y to ED with respirator y distress. - RTC in 3 months. (unstable 1 month) Essential hypertension 89252534 I10 - b/p in office today 138/84 - Continue medication as prescribed and diet/exerc ise as previously discussed. - Take occasional BP s, call if consistent ly >140/90. - Discussed reasons for sooner f/u than 6 months. - Patient verbalizes understand ing. Type 2 dinorah betes mellitus 83006291 E11.21 - Educated on goal of blood [...] month 3 months 6 months*}} Tobacco user 983172407 Z 72.0 - Patient is a current cigarette smoker, states he smokes 1.5 pk per day and currently has no desire to quit. - Patient advised in the derogatory effects of smoking - Counseling for smoking cessation completed [id number] CECILE MCKEE NP [facility] [address] [place] [address] 08/21/2023 10:53:19 08/28/2023 16:08:48 Essential hypertension 96811220 I10 - b/p in office today 138/84 - Continue medication as prescribed and diet/exerc ise as previously discussed. - Take occasional BP s, call if consistent ly >140/90. - Discussed reasons for sooner f/u than 6 months. - Patient verbalizes understand ing. Type 2 dinorah betes mellitus 08672807 E11.21 - Educated on goal of blood [...] 3 months 6 months*}} Cerebrovas cular accident 742608624 I63.9 - Bettye binghamece reports patient needs assistance with (cooking, dressing, cleaning) Tobacco user 474399700 Z 72.0 - Patient is a current cigarette smoker, states he smokes 1.5 pk per day and currently has no desire to quit. - Patient advised in the derogatory effects of smoking - Counseling for smoking cessation completed Chronic ob structive pulmonary disease 67645323 J44.9 - Encouraged and educated on the importance of pneumonia and influenza vaccinatio n. - Encouraged good pulmonary hygiene. Patient to notify provider if condition worsens or report immediatel y to ED with respirator y distress. - RTC in 3 months. (unstable 1 month) [id number] Rajni Jordan MD [facility] [address] [address] 10/27/2023 09:12:41 10/29/2023 16:10:28 Chronic bronchitis 12805281 J42 I will check PFTs, 6MWT, CBC and IgE Pulmonary emphysema 8743 3001 J43.9 I will add Symbicort to Albuterol and give steroids and doxy Sleep disorder 19272755 G47.9 I will check Split sleep study Nicotine dependence 5629 4008 F17.200 30 PYH, I will check LDCT [id number] CECILE MCKEE NP [facility] [address] [place] [address] 12/18/2023 10:31:00 12/23/2023 16:01:46 Tobacco user 527012668 Z72.0 - Patient is a current cigarette smoker, states he smokes 1.5 pk per day and currently has no desire to quit. - Patient advised in the derogatory effects of smoking - Counseling for smoking cessation completed Essential hypertension 44500054 I10 - b/p in office today 115/70 - Continue medication as prescribed and diet/exerc ise as previously discussed. - Take occasional BP s, call if consistent ly >140/90. - Discussed reasons for sooner f/u than 6 months. - Patient verbalizes understand ing. Type 2 dinorah betes mellitus 59814740 E11.21 - Educated on goal of blood [...] months*}} Screening for malignant neoplasm of prostate 361709055 Z12.5 Obesity 703410970 E66.9 advised low fat, low cholestero l, low carb diet, regular exercise and weight reduction. History of polyp of colon 698722532 Z86.010 - 5 mm polyp removed 07/2020, repeat colonoscop y was recommende d at 5 years Adult heal th examination 767606513 Z00.00 Health Risk Assessment collected and reviewed Hyperlipidemia 33504528 E78.5 [id number] CECILE MCKEE NP [facility] [address] [place] [address] 01/20/2024 10:06:28 01/26/2024 13:40:47 Depressive disorder 60276212 F32.A Chronic ob structive pulmonary disease 97882163 J44.9 - Encouraged and educated on the importance of pneumonia and influenza vaccinatio n. - Encouraged good pulmonary hygiene. Patient to notify provider if condition worsens or report immediatel y to ED with respirator y distress. - RTC in 3 months. (unstable 1 month) [id number] [facility] [address] [place] [address] 02/19/2024 11:56:39 02/23/2024 09:55:15 Type 2 diabetes mellitus 78697133 E11.21 - Educated on goal of blood [...] month 3 months 6 months*}} Essential hypertension 72153124 I10 - b/p in office today 147/84, repeat pressure 131/82 - Continue medication as prescribed and diet/exerc ise as previously discussed. - Take occasional BP s, call if consistent ly >140/90. - Discussed reasons for sooner f/u than 4 months. - Patient verbalizes understand ing. Depressive disorder 8716 9007 F32.A - Discussed symptoms of depression /anxiety as well as the different treatment types.- Pt to started on Hydroxyzin e daily as directed.- Encouraged psychother apy in adjunct with medication therapy,.- All questions and concerns were addressed. - Pt to take meds as directed.- Pt is to monitor symptoms and RTC sooner if symptoms are worsening or not improving. Infection of tooth 11553 8007 K04.7 - Apply ice/cold pack on [...] Concerns Section Related Observation LastModified by Organization Yaneth germain LastModified Time None Recorded Concern Status LastModified by Organization Details LastModified Time None Recorded Advance Directives Directive N: Payers Encounter Date Sequence Insurance Name Policy Number Policy Palma Covered Member ID Palma Member ID Guarantor Name 08/21/2023 1 [facility] - DOS ON OR AFTER 2020 - DUAL ELIGIBLE (MEDICARE REPLACEMENT/AD VANTAGE - HMO) [id number] Philip Barron [id number] Philip Barron 10/27/2023 2 MEDICA[place] (SECONDARY PLAN WHEN MEDICARE OR MEDICARE REPLACEMENT PRIMARY) Philip Barron [id number] Philip Barron 10/27/2023 1 [facility] ON OR AFTER 07/28/2020 - DUAL ELIGIBLE (MEDICARE REPLACEMENT/AD VANTAGE - HMO) [id number] Philip Barron [id number] Philip Barron 12/18/2023 1 [facility] ON OR AFTER 07/28/2020 - DUAL ELIGIBLE (MEDICARE REPLACEMENT/AD VANTAGE - HMO) [id number] Philip Braron [id number] Philip Barron 01/20/2024 1 [facility] AFTER 07/28/2020 - DUAL ELIGIBLE (MEDICARE REPLACEMENT/AD VANTAGE - HMO) [id number] Philip Barron [id number] Philip Barron 02/19/2024 1 [facility] ON OR AFTER 07/28/2020 - DUAL ELIGIBLE (MEDICARE REPLACEMENT/AD VANTAGE - HMO) [id number] Philip Barron [id number] Philip Braron Notes Date Note Type Note Provider Name and Address Organization Details Recorded Time 08/21/2023 text/html Diabetes F/UReported bypatient.Labs:last A1C result: 7.0 (07/03/23)Hypertens ion F/UReported bypatient.Associate d Symptoms:no dizziness; no lightheadedness; no chest pain; no shortness of breath; no palpitations Medications:taking medications as directed CECILE MCKEE NP Attn: [address]ing,[address] [place], [address], [facility] 08/23/2023 13:18:13 10/27/2023 text/html Patient is here for evaluation of SOB. He has 30 PYH of smoking. He lives in [facility], He's up to date with COVID-19 vaccine. He has history of wheezing, cough and exertional dyspnea. he sleeps OK. Rajni Jordan MD [address] [facility], [place], [address], [facility] 10/27/2023 10:47:07 12/18/2023 text/html Diabetes F/UReported bypatient.Labs:last [...] wellness exam. CECILE MCKEE NP Attn: [address],[address] [place], [address], [facility] 12/20/2023 19:57:42 01/20/2024 text/html Mr. Barron arrived in the office today, accompanied by caregiver, for a thke-zq-okhx appointment regarding the need for a powered wheelchair to assist with mobility. CECILE MCKEE NP Attn: Accounting,[address] [facility], [place], [address], [facility] 01/22/2024 14:43:52 02/19/2024 text/html Anxiety/Depressi onR eported [...] last visit. CECILE MCKEE NP Attn: Accounting,[address] [facility], [place], [address], [facility], [facility] 02/22/2024 23:37:17
--- OUTSIDE RECORDS SUMMARY | 2024-10-01 06:52 | XMS_ITS | Encounter Summary ---
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 Name Role Phone Unknown, Provider Primary Care Provider Unavaila ble Reason for Visit * Reason Comments Refill Request Encounter Details Date Type Department Care Team (Late st Contact Info) Description 10/14/2018 Refill [facility] [address] [facility] [address] [place] [address] Nava Morgan MD [address] [place] [address] Refill Request Social History Tobacco Use Types Packs/Day Years Used Date Smoking Tobacco: Every Day Cigarettes 0.5 35 Smokeless Tobacco: Never Alcohol Use Standard Drinks/Week Comments No 0 (1 standard drink = 0.6 oz pur e alcohol) Sex and Gender Information Value Date Recorded Sex Assigned at Not on file Gender Identity Male 09/11/2020 8:16 AM [employer] Sexual Orientation Not on file documented as of this encounter Plan of Treatment Not on file documented as of this encounter Visit Diagnoses Not on filedocumented in this encounter Additional Health Concerns Infection Onset Date Last Indicated Resolved Time COVID-19 Under Investigation 09/10/2020 09/10/2020 09/10/2020 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
--- OUTSIDE RECORDS SUMMARY | 2024-10-01 06:52 | XMS_ITS | Data Portability ---
Author Organization [facility]) Address [address] [place] [address] Care Team Providers Care Laboratory Administrative Director Name Role Phone ALLEN GILMORE Primary Care Provider [phone] Assessment Encounter Date Assessment Date Assessment LastModified [...] Appointments None recorded. Lab None recorded. 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 Surgeries None recorded. Imaging None recorded. Medication Orders Adult Low Dose Aspirin 81 mg tablet,wendie yed release 2021 022 [id number], [address] , [place], [place], [phone], 12:02:24 Plavix 75 mg tablet 2021 022 [facility] #[id number], [address], [place], [place], [phone], 12:02:25 Patient TargetsNo targets recorded. Patient InstructionsNo instructions recorded. 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 [email or web address] Not Available 2021 17:00:54 Result Notes None recorded. Problems Name Problem SNOMED Code Status Onset Date Resolution Date Notes Provider Name and Address Organization Details Recorded Time Essential hypertension 60655524 Active 2021 donovan rodriguez, [place] - [facility] and 2 07:17:04 Diabetes mellitus 42654152 Active 2021 donovan june null, [place] - [facility] 07:17:01 Moderate chronic obstructive pulmonary disease 504446766 Active 2021 donovan june null, [place] - [facility] and 07:17:09 Problem Notes None recorded. Procedures Surgical History Date Name Laterality Status Provider Name and Address Organization Details Recorded Time OA LE revascularization completed Jt Banegas MD [address] [place] [address], [phone], [place] - [facility] 11/19/2021 12:01:11 OA LE revascularization [place] Jt Banegas [place] [id number] [place] [address], [phone], [place] - [facility] and 11/11/2021 03:47:29 [email or web address] completed Anahy Karthik [place] - [facility] and 10/05/2021 12:55:33 OA LE Quantiflow study completed [facility] - [facility] and 10/05/2021 11:26:41 procedure on upper arm completed [facility] - [facility] and 10/05/2021 11:34:13 Imaging Results Imaging Date Name Status LastModified by [facility] Details LastModified Time 10/04/2021 US, doppler, venous completed [email or web address] Information not available 12/12/2021 17:00:54 Procedure Notes [...] Updated DateTime 2 185.42 cm 33.8 kg/m2 039199. 65 g 70 /min 60 /min 160 mm[Hg] 89 mm[Hg] 142 mm[Hg] 76 mm[Hg] Sarah Oquendo [facility] 2 12:17:14 Date Recorded Body height Body mass index (BMI) Body weight Heart rate Systolic blood pressure Diastolic blood pressure Provider Name and Address Organization Details Last Updated DateTime 2 185.42 cm 33.8 kg/m2 152593. 65 g 60 /min 142 mm[Hg] 76 mm[Hg] Anahy Angeles [facility] 2 12:55:47 Date Recorded Body height Body mass index (BMI) Body weight Heart rate Systolic blood pressure Diastolic blood pressure Provider Name and Address Organization Details Last Updated DateTime 2 185.42 cm 33.4 kg/m2 085957. 87 g 74 /min 98 mm[Hg] 58 mm[Hg] donovan june [place] - [facility] 2 08:38:06 Date Recorded Body height Body mass index (BMI) Body weight Heart rate Systolic blood pressure Diastolic blood pressure Provider Name and Address Organization Details Last Updated DateTime 2 185.42 cm 31 kg/m2 601852. 21 g 78 /min 123 mm[Hg] 77 [...] Social History Question Answer Notes LastModified by Integrity Tracking ion Details LastModified Time Tobacco Smoking Status Current Every Day Smoker Sarah rodriguez, [place] - [facility] and 10/05/2021 11:31:45 Are You Blind Or Do You Have Difficulty Seeing? Yes Difficulty Seeing. Went To Eye Doctor Yesterday And Will Be Getting Glasses. [email or web address] Information not available 10/05/2021 In The 14 Days Before Symptom Onset, Have You Had Close Contact With A Laboratory-confi rmed COVID-19 While That Case Was Ill? No [email or web address] Information not available 10/05/2021 In The 14 Days Before Symptom Onset, Have You Had Close Contact With A Person Who Is Under Investigation For COVID-19 While That Person Was Ill? No Information not available 10/05/2021 Have You Been To An Area Known To Be High Risk For COVID-19? No [email or web address] Information not available 10/05/2021 Are You Deaf Or Do You Have Serious Difficulty Hearing? No [email or web address] Information not available 10/05/2021 What Type Of Diet Are You Following? DIABETIC Patient Is Supposed To Be On A Diabetic Diet, But States He Eats What He Wants. Information not available 10/05/2021 Have You Processed Blood Or Body Fluids From An Ebola Virus Disease Patient Without Appropriate PPE? No [email or web address] Information not available 10/05/2021 Do You Reside In Or Have You Traveled To An Area Where Ebola Virus Transmission Is Active? No [email or web address] Information not available 10/05/2021 What Is The Highest Grade Or Level Of School You Have Completed Or The Highest Degree You Have Received? JR40326-8 [email or web address] Information not available 10/05/2021 What Was The Date Of Your Most Recent Tobacco Screening? 03/22/2022 [email or web address] Information not available 03/22/2022 How Much Tobacco Do You Smoke? 0.5 PPD [email or web address] Information not available 03/22/2022 Do You Or Have You Ever Used Any Other Forms Of Tobacco Or Nicotine? No [email or web address] Information not available 03/22/2022 Sex: Unknown Functional Status Question Answer Note LastModified by Organizat ion Details LastModified Time Do you have difficulty walking or climbing stairs? Yes Has issues because of the pain in his legs and the callouses on his feet. [email or web address] Information not available 10/05/2021 Are you able to walk? YESWOREST Stops frequently to issues with his legs. States It's like they lose energy. [email or web address] Information not available 10/05/2021 Do you have difficulty doing errands alone? No [email or web address] Information not available 10/05/2021 Do you have difficulty dressing or bathing? No [email or web address] Information not available 10/05/2021 What is your exercise level? None [email or web address] Information not available 10/05/2021 Mental Status Question Answer Note LastModified by Organization D etails LastModified Time Do you have difficulty concentrating, remembering or making decisions? No [email or web address] Information no t available 10/05/2021 Family History Nothing Reported. Medical History Condition Response Diabetes Y Varicose Veins N Anxiety Disorder N Anticoagulation therapy N Coronary Artery Disease N Bleeding Disorder N Hyperlipidemia N Cancer N Stroke N Asthma N COPD Y Clotting Disorder N Pacemaker N Anemia N Neurologic Disorder N Hepatitis N Genitourinary Disease N Ulcers N Gastrointestinal Disease N Heart Disease N Pulmonary Embolism N Deep Vein Thrombosis N Hypertension Y Kidney Disease N Past Encounters Encounter ID Performer Location Encounter Start Date Encounter Closed Date Diagnosis/Indication Diagnosis SNOMED-CT Code Diagnosis ICD10 Code Diagnosis Note [id number] J[address] ( [facility] [address] [place] [address] 10/05/2021 10:50:39 10/09/2021 10:42:19 Peripheral vascular disease 650031976 I73.9 Varicose v eins of lower extremity 88449628 I83.893 Primary ve nous insufficiency of leg 560191032 I87.2 Bilateral lower limb pain at rest due to atherosclerosis 3150252374 3851792 I70.223 Complicati on due to diabetes mellitus 70198341 E11.59 [id number] [place] [address] [place] [address] 10/05/2021 12:45:41 10/10/2021 11:13:53 Bilateral lower limb pain at rest due to atherosclerosis 9476125097 7643498 I70.223 [id number] ( [facility] ) [address] [place] [address] 11/07/2021 08:11:12 11/19/2021 12:50:05 Bilateral lower limb pain at rest due to atherosclerosis 8926521429 5786931 I70.223 [id number] Jt [place]as [place] [address] ( [place] ) [address] [place] [address] 11/19/2021 06:55:59 11/19/2021 17:47:49 Bilateral lower limb pain at rest due to atherosclerosis 7458976315 4236355 I70.[id number] [address] [facility] ,[facility] [address] [place] [address] 12/04/2021 09:46:32 12/04/2021 10:19:40 Bilateral lower limb pain at rest due to atherosclerosis 4394972222 4462982 I70.223 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 053561564 L97.509 [id number] ( [place] ) [address] [facility] [place] [address] 03/22/2022 09:29:10 03/22/2022 10:04:47 Bilateral lower limb pain at rest due to atherosclerosis 3915973211 5229540 I70.223 Health Concerns Section Related Observation LastModified by Organization Detai ls LastModified Time None Recorded Concern Status LastModified by Organization Details LastModified Time None Recorded Advance Directives Directive None Recorded Payers Encounter Date Sequence Insurance Name Policy Number Policy Palma Covered Member ID Palma Member ID Guarantor Name 10/05/2021 1 [employer] (MEDICARE REPLACEMENT/A DVANTAGE - PPO) Philip Barron [id number] Philip Barron 11/07/2021 1 [employer] (MEDICARE REPLACEMENT/A DVANTAGE - PPO) Philip Barron [id number] Philip Barron 11/19/2021 1 [employer] (MEDICARE REPLACEMENT/A DVANTAGE - PPO) Philip Barron [id number] Philip Barron 12/04/2021 1 [employer] (MEDICARE REPLACEMENT/A DVANTAGE - PPO) Philip Anderson [id number] Philip Anderson 03/22/2022 1 [employer] (MEDICARE REPLACEMENT/A DVANTAGE - PPO) Philip Anderson [id number] Philip Anderson Notes Date Note Type Note Provider Name and Address Organization Details Recorded Time 10/05/2021 text/html Arterial Occlusi ve Disease: Lower ExtremityReported bypatient.Location[facility] Quality:cramping; burning; aching; tingling; pain with exertion; cramping with exertion Severity:severe Duration:has noted for years Onset/Timing:continuou s; at rest; with exercise begins at <1/2 block; with exercise begins at 1 block Context:tobacco use Aggravating Factors:walking; standing Associated Symptoms:weakness;numb ness/tingling;paresthe susan;[place] [address], [address], [facility] and 10/05/2021 13:31:13 11/07/2021 text/html Patient with a h istory of {{right left bilateral *}}{{claudication rest pain* tissue loss/ulcer}}, presenting for angiogram with possible intervention Jt Banegas MD [address] [place] [address], [address], [address], [facility] and 11/11/2021 03:58:24 11/19/2021 text/html Patient with a h istory of {{right left bilateral *}}{{claudication rest pain* tissue loss/ulcer}}, presenting for angiogram with possible intervention Jt Banegas MD [address] [place] [address], [address], [facility] and 11/19/2021 12:02:39 12/04/2021 text/html [...] for the first time ever). Divina rodriguez, [facility] and 12/04/2021 10:05:08 03/22/2022 text/html [...] been taking his plavix. Jt Banegas [place] [address] [place] [address], [address], [address], [facility] and 03/22/2022 09:58:15
[2024-10-01 07:07] LABS: NT Pro B Type Natriuretic Pept 1100 pg/mL (19.9-100); Troponin I 0.044 ng/mL (0.000-0.034)
[2024-10-01 07:10] LABS: Influenza A QL RT-PCR Negative (Negative); Influenza B QL RT-PCR Negative (Negative); RSV RNA, RT-PCR Negative (Negative); SARS-CoV-2 RNA PCR Negative (Negative)
--- NOTE | 2024-10-01 08:47 | PC.NURSE ---
this RN asked the pt to provide a urine sample and pt refused. this RN asked if the pt would allow a straight catheter and pt also refused the catheter. EDP aware
--- NOTE | 2024-10-01 09:30 | ECG_ITS ---
Test Date: 2024-10-01 09:53:52 Measurements Intervals [place] Rate: 77 P: 267 FL: 104 QRS: 42 QRSD: 86 T: 39 QT: 397 QTc: 451 Interpretive Statements ECTOPIC ATRIAL RHYTHM MODERATE T-WAVE ABNORMALITY Compared to ECG 10/01/2024 05:42:28 NO SIGNIFICANT CHANGES Electronically Signed On 10-01-2024 16:33:45 PRODUCT OWNER by Danielle Gaspar M.D.
[2024-10-01 10:10] LABS: Add Urine Microscopic? YES; Appearance Urine Clear (Clear); Bacteria Urine None Seen /hpf; Bilirubin Urine Negative (Negative); Blood Urine Negative (Negative); Color Urine Dark Yellow (Yellow); Glucose Urine UA Negative (Negative); Ketones Urine Trace mg/dL (Negative); Leukocyte Esterase Ur Negative LEU/UL (Negative); Need Manual Microscopic Reviewed; Nitrate Urine Negative (Negative); Protein Urine 3+ mg/dL (Negative); RBC Urine 0-2 /hpf (0-2); Specific Grav Ur > 1.045 (1.001-1.035); Squamous Epithelial Cell Urine None Seen /hpf (Few); WBC Urine 0-5 /hpf (0-3); pH Urine 5.5 (5.0-9.0)
--- NOTE | 2024-10-01 10:57 | ADMGEN ---
This patient, Philip Barron, was admitted to IMU Room 205-02. Patient/family oriented to hospital policies and general routines including ID bracelet, bed and alarms, visiting hours, pain management, procedures, bathroom and other care routines, personal items, smoking policy, room service/diet, and visiting hours. Information on how to activate the Rapid Response Team has been discussed. Patient/Family are encouraged to report perceived risks to care and to ask questions if they do not understand what they are told or what they should do. No report was received from the ED
[2024-10-01 10:59] LABS: Troponin I 0.045 ng/mL (0.000-0.034)
--- NOTE | 2024-10-01 15:26 | P.HP_ITS ---
H&P: HPI History of Present Illness Date/Time: 10/01/24 15:26 Chief Complaint: Shortness of breath. Narrative: CC 9-year-old male past medical history of hypertension, COPD on 2 L oxygen, type 2 diabetes who presented to the ER on account of shortness of breath the patient is poor historian unable to report due to history. Number denies any chest pain, vomiting, diarrhea dysuria. Er eval notable for temperature 7.6, post recent 6, respiratory 28, saturating 100% on room air. Blood pressure 157/91. Labs ABG 7.42/41.5/57.9/26.4, troponin 0.04 full repeated 0.045. CTA chest negative. Cardiology consulted from the ER. Review of Systems Review of Systems: All other systems are reviewed and negative except as noted in history above. [facility] Past Medical History Medical History Subclinical hyperthyroidism Alcoholism Diabetes mellitus with peripheral autonomic neuropathy Insomnia COPD (chronic obstructive pulmonary disease) HTN (hypertension) Family History Family History Sibling Diabetes mellitus Mother Hypertension Father Liver failure Social History Social History Smoking packs per day: 1 Smoking cigarettes per day: 20.0 Years smoked: 50 Smoking pack-years: 50.00 Smoking status: Current every day smoker Tobacco type: cigarettes Second hand tobacco smoke exposure: Yes Alcohol intake: current Drinks per week: 4 Substance use: never Substance use type: does not use Do You Feel Safe in your Home?: Yes Lack of Transportation: No Lack of Food: Often True Current Housing: I Have Housing Concerned About Future Housing: No Difficulty Paying Gas/Electric Bills: No Difficulty Paying for Meds: No Currently Unemployed: No Education: High School Diploma/GED Difficulty w/ Childcare or Family Care: No Living arrangements: alone Occupation/Education: unemployed Additional occupation/education comments: Disabled Gender identity (if verbalized by the patient): Male Spiritual care concerns: No Meds Home Medications and Allergies Home Medications ?Medication ?Instructions ?Recorded ?Confirmed ?Type atorvastatin 40 mg tablet 80 mg (2 x 40 mg) PO DAILY 1 month 10/08/22 10/01/24 Rx #60 tabs gabapentin 300 mg capsule See Rx Instructions .Route 05/14/23 10/01/24 Rx .COMPLEX #60 caps nebulizer accessories #1 ea 09/09/24 10/01/24 Rx nebulizer and compressor #1 ea 09/09/24 10/01/24 Rx albuterol sulfate 90 mcg/actuation See Rx Instructions .Route 09/10/24 10/01/24 Rx aerosol inhaler .COMPLEX PRN Shortness Of Breath #2 grams amlodipine 5 mg tablet 5 mg PO DAILY #60 tabs 09/10/24 10/01/24 Rx budesonide-formoterol HFA 160 1 inh inhalation DAILY #1 g 09/10/24 10/01/24 Rx mcg-4.5 mcg/actuation aerosol inhaler (Symbicort) empagliflozin 10 mg tablet 10 mg PO DAILY 1 month #30 tabs 09/10/24 10/01/24 Rx (Jardiance) ipratropium 0.5 mg-albuterol 3 mg 3 ml inhalation Q6HRT PRN Dyspnea 09/10/24 10/01/24 Rx (2.5 mg base)/3 mL nebulization #60 mL soln lisinopril 30 mg tablet 30 mg PO DAILY #60 tabs 09/10/24 10/01/24 Rx Allergies Allergy/AdvReac Type Severity Reaction Status Date / Time No Known Allergies Allergy Verified 09/07/24 21:05 Vital Signs Vital Signs - 24 hr 10/01/24 05:37 10/01/24 05:41 10/01/24 06:00 Temperature 98.4 F 98.4 F Pulse Rate 89 84 85 Respiratory Rate 22 H 22 H 22 H Blood Pressure 172/97 H 172/97 H 120/97 H Pulse Oximetry 98 98 Oxygen Delivery Room Air Oxygen Flow Rate 10/01/24 07:20 10/01/24 07:30 10/01/24 07:45 Temperature Pulse Rate 78 79 79 Respiratory Rate 23 H 24 H 22 H Blood Pressure 155/92 H 164/94 H 141/57 H Pulse Oximetry 100 100 100 Oxygen Delivery Oxygen Flow Rate 10/01/24 07:54 10/01/24 10:45 10/01/24 11:15 Temperature 97.6 F Pulse Rate 76 Respiratory Rate 28 H Blood Pressure 157/91 H Pulse Oximetry 98 100 100 Oxygen Delivery Nasal Cannula Nasal Cannula Oxygen Flow Rate 2 2 10/01/24 12:00 10/01/24 14:00 Temperature Pulse Rate 92 76 Respiratory Rate Blood Pressure Pulse Oximetry Oxygen Delivery Oxygen Flow Rate Exam Narrative: General: alert and comfortable Eyes: EOMI, PERRLA ENNT External ears normal, Neck is supple, no masses, Respiratory systems: Clear to auscultation Cardiovascular S1, S2, normal rhythm, no murmur, rub, or gallop; no thrill or palpable murmurs on palpation. Gastrointestinal: soft, non-tender, and non-distended abdomen with no masses; BS present Skin: no rash, lesions, ulcerations, subcutaneous nodules or induration Musculoskeletal: no abnormality and no tenderness, normal ROM Neurologic: Alert and oriented x3, non focal Mental Status Exam: normal affect H&P: Results Labs Labs: Short CBC 10/01/24 Range/Units 06:22 WBC 6.8 (4.5-10.0) K/mm3 Hgb 13.8 L (14.0-18.0) g/dL Hct 42.8 (42.0-52.0) % Plt Count 263 (150-375) k/mm3 BMP 10/01/24 06:22 Sodium 140 Potassium 4.4 Chloride 102 Carbon Dioxide 31 H BUN 8 L D Creatinine 0.90 Glucose 155 H Calcium 9.4 Cardiac Enzymes 10/01/24 10/01/24 Range/Units 06:22 09:50 Troponin I 0.044 H* 0.045 H* (0.000-0.034) ng/mL Liver Function 10/01/24 Range/Units 06:22 Total Bilirubin 0.6 (0.2-1.3) mg/dL AST 32 (17-59) U/L ALT 32 (6-50) U/L Alkaline Phosphatase 73 (38-126) U/L Albumin 3.7 (3.5-5.1) g/dL Urine 10/01/24 Range/Units 09:51 Urine Color Dark yellow (Yellow) Urine Appearance Clear (Clear) Urine pH 5.5 (5.0-9.0) Ur Specific [place] > 1.045 H (1.001-1.035) Urine Protein 3+ H (Negative) mg/dL Urine Glucose (UA) Negative (Negative) mg/dL Assessment and Plan Assessment and plan (1) Elevated troponin: Code(s): R79.89 - Other specified abnormal findings of blood chemistry Status: Acute Plan Elevated troponin Rule out ACS Continue aspirin Lipitor Echo ordered. Cardiology consulted. COPD with chronic respiratory failure on 2 L oxygen at baseline Continue oxygen. Continue home bronchodilators. Hypertension Continue home medications. Type 2 diabetes Sliding scale insulin with Accu-Cheks and adjust with clinical course. DVT prophylaxis subQ Lovenox. Full code Reassess for surrogate decision maker. Hospitalist [facility] Advance Care Plan I have confirmed that the patient's Advanced Care Plan is present, code status i s documented, or surrogate decision maker is listed in patient medical record.: Yes Medication Reconciliation I have utilized all available resources to obtain, update and review the patients current medications (includes all prescriptions, OTC, herbals, cannabis, and nutritional supplements).: Yes
--- NOTE | 2024-10-01 16:03 | P.CONCA_ITS ---
Assessment and Plan Assessment and plan (1) Elevated troponin: Code(s): R79.89 - Other specified abnormal findings of blood chemistry Status: Acute Plan 1. Elevated troponin 2. COPD with chronic hypoxic respiratory failure 3. Non-insulin dependent diabetes 4. Hypertension 5. Alcohol use 6. Peripheral neuropathy 7. History of CVA PLAN: -Troponin elevation is mild and flat. EKGs are unchanged compared to prior. Recent echocardiogram from last month without significant abnormality. He is not endorsing any specific cardiac complaints to me (although he is a poor historian). NT pro BNP elevated, however chest imaging without any pulmonary edema, pleural effusions. No lower extremity edema. He does not appear to be volume overloaded and in CHF. At this time, no additional cardiac testing or workup recommended. Cardiology will sign off, please call us if needed. History of Present Illness History of Present Illness Consult date/time: 10/01/24 16:03 Requesting physician: Markus Zacarias MD Consult reason: Other (Elevated troponin) Reason For Visit: Elevated Troponin/Hypoxia/Shortness of Breath/Weak Narrative: We are consulted for elevated troponin. This is a 69 year old male who presented to the ED after a ground level fall. Per notes, he has been falling more frequently. In the ED, ABG showed hypoxia at 87%. Patient is a poor historian and difficult to obtain history from. He denies chest pain, shortness of breath to me. Workup shows troponins of 0.044, 0.045. NT pro BNP elevated at 1100. CTA with mild emphysema, no pulmonary edema, no pleural effusions. Echocardiogram done last month shows LVEF 60-65%, no significant valvular disease. Review of Systems 2 Cardiovascular: Cardiovascular: Reports as per [facility] Past Medical History Medical History Subclinical hyperthyroidism Alcoholism Diabetes mellitus with peripheral autonomic neuropathy Insomnia COPD (chronic obstructive pulmonary disease) HTN (hypertension) Family History Family History Sibling Diabetes mellitus Mother Hypertension Father Liver failure Social History Social History Smoking packs per day: 1 Smoking cigarettes per day: 20.0 Years smoked: 50 Smoking pack-years: 50.00 Smoking status: Current every day smoker Tobacco type: cigarettes Second hand tobacco smoke exposure: Yes Alcohol intake: current Drinks per week: 4 Substance use: never Substance use type: does not use Do You Feel Safe in your Home?: Yes Lack of Transportation: No Lack of Food: Often True Current Housing: I Have Housing Concerned About Future Housing: No Difficulty Paying Gas/Electric Bills: No Difficulty Paying for Meds: No Currently Unemployed: No Education: High School Diploma/GED Difficulty w/ Childcare or Family Care: No Living arrangements: alone Occupation/Education: unemployed Additional occupation/education comments: Disabled Gender identity (if verbalized by the patient): Male Spiritual care concerns: No Meds Home Medications and Allergies Home Medications ?Medication ?Instructions ?Recorded ?Confirmed ?Type atorvastatin 40 mg tablet 80 mg (2 x 40 mg) PO DAILY 1 month 10/08/22 10/01/24 Rx #60 tabs gabapentin 300 mg capsule See Rx Instructions .Route 05/14/23 10/01/24 Rx .COMPLEX #60 caps nebulizer accessories #1 ea 09/09/24 10/01/24 Rx nebulizer and compressor #1 ea 09/09/24 10/01/24 Rx albuterol sulfate 90 mcg/actuation See Rx Instructions .Route 09/10/24 10/01/24 Rx aerosol inhaler .COMPLEX PRN Shortness Of Breath #2 grams amlodipine 5 mg tablet 5 mg PO DAILY #60 tabs 09/10/24 10/01/24 Rx budesonide-formoterol HFA 160 1 inh inhalation DAILY #1 g 09/10/24 10/01/24 Rx mcg-4.5 mcg/actuation aerosol inhaler (Symbicort) empagliflozin 10 mg tablet 10 mg PO DAILY 1 month #30 tabs 09/10/24 10/01/24 Rx (Jardiance) ipratropium 0.5 mg-albuterol 3 mg 3 ml inhalation Q6HRT PRN Dyspnea 09/10/24 10/01/24 Rx (2.5 mg base)/3 mL nebulization #60 mL soln lisinopril 30 mg tablet 30 mg PO DAILY #60 tabs 09/10/24 10/01/24 Rx Allergies Allergy/AdvReac Type Severity Reaction Status Date / Time No Known Allergies Allergy Verified 09/07/24 21:05 Vital Signs Vital Signs - 24 hr 10/01/24 05:37 10/01/24 05:41 10/01/24 06:00 Temperature 36.9 C 36.9 C Pulse Rate 89 84 85 Respiratory Rate 22 H 22 H 22 H Blood Pressure 172/97 H 172/97 H 120/97 H Pulse Oximetry 98 98 Oxygen Delivery Room Air Oxygen Flow Rate 10/01/24 07:20 10/01/24 07:30 10/01/24 07:45 Temperature Pulse Rate 78 79 79 Respiratory Rate 23 H 24 H 22 H Blood Pressure 155/92 H 164/94 H 141/57 H Pulse Oximetry 100 100 100 Oxygen Delivery Oxygen Flow Rate 10/01/24 07:54 10/01/24 10:45 10/01/24 11:15 Temperature 36.4 C Pulse Rate 76 Respiratory Rate 28 H Blood Pressure 157/91 H Pulse Oximetry 98 100 100 Oxygen Delivery Nasal Cannula Nasal Cannula Oxygen Flow Rate 2 2 10/01/24 12:00 10/01/24 14:00 Temperature Pulse Rate 92 76 Respiratory Rate Blood Pressure Pulse Oximetry Oxygen Delivery Oxygen Flow Rate Exam 2 Const: General: no acute distress HENMT: Mouth: Yes moist mucous membranes Eyes: Sclera: scleral abnormality (Jaundiced sclera ) Resp: Effort & Inspection: normal respiratory effort Other: Mild end expiratory wheezing Cardio: Rate: regular rate Rhythm: regular rhythm Heart sounds: no murmurs Other: No lower extremity edema Psych: Affect: normal affect Results Labs and Meds 10/01/24 06:22 10/01/24 06:22 Lab results: Cardiac Enzymes 10/01/24 10/01/24 Range/Units 06:22 09:50 AST 32 (17-59) U/L Troponin I 0.044 H* 0.045 H* (0.000-0.034) ng/mL Coagulation 10/01/24 Range/Units 06:22 PT 16.3 H (11.1-14.7) Seconds APTT 27.5 (22.3-36.8) Seconds CBC 10/01/24 Range/Units 06:22 WBC 6.8 (4.5-10.0) K/mm3 RBC 4.60 (4.6-6.20) M/mm3 Hgb 13.8 L (14.0-18.0) g/dL Hct 42.8 (42.0-52.0) % Plt Count 263 (150-375) k/mm3 Lymph # (Auto) 1.10 (0.9-3.2) K/mm3 [place] # (Auto) 0.7 H (0.1-0.6) K/mm3 Eos # (Auto) 0.1 (0-0.3) K/mm3 Baso # (Auto) 0.0 (0.0-0.1) K/mm3 Comprehensive Metabolic Panel 10/01/24 Range/Units 06:22 Sodium 140 (137-145) mmol/L Potassium 4.4 (3.4-5.0) mmol/L Chloride 102 (98-107) mmol/L Carbon Dioxide 31 H (22-30) mmol/L BUN 8 L D (9-20) mg/dL Creatinine 0.90 (0.7-1.3) mg/dL Glucose 155 H (65-110) mg/dL Calcium 9.4 (8.4-10.2) mg/dL AST 32 (17-59) U/L ALT 32 (6-50) U/L Alkaline Phosphatase 73 (38-126) U/L Total Protein 7.0 (6.3-8.2) g/dL Albumin 3.7 (3.5-5.1) g/dL Intake and Output 10/01/24 10/01/24 10/01/24 07:59 15:59 23:59 Output Total 115 Balance -115 Output: Urine 115 Patient Weight 10/01/24 23:59 Weight 97.4 kg
[2024-10-01] MEDS: IPRATROPIUM 0.5 MG/ALBUTEROL SULFATE 2.5 MG AMPUL.NEB 3 ML INHALATION ×2 (16:18→20:18)
[2024-10-01 16:47] LABS: Glucose Point of Care 125 mg/dl (65-105)
--- NOTE | 2024-10-01 18:11 | PC.NURSE ---
This patient, Philip Barron, was transferred to [[id number] ] on 10/01/24 at 1812. Personal belongings sent with patient. Report given to [LAVELL Rodgers @[phone] ]. Appropriate documentation sent with patient.
--- NOTE | 2024-10-01 18:32 | PC.NURSE ---
This patient, Philip Barron, was received from IMU on 10/01/24 at 1832. Patient/family oriented to unit policies and routines
[2024-10-01] MEDS: FLUTICASONE/SALMETEROL 115-21 MCG INHALER 1 PUFF 2 PUFF INHALATION (20:20)
[2024-10-02] VITALS (8 sets, daily range): BP systolic 130–139; BP diastolic 62–77; PULSE 68–98; RESP 16–20; TEMP 36.1–36.6; O2SAT 93–100
[2024-10-02] MEDS: IPRATROPIUM 0.5 MG/ALBUTEROL SULFATE 2.5 MG AMPUL.NEB 3 ML INHALATION ×4 (02:46→20:12)
--- NOTE | 2024-10-02 02:46 | PCRCNOTE ---
0200 treatment omitted, patient was sleeping. RN notified to call RT if patient needs a treatment later.
[2024-10-02 05:41] LABS: Basophils Percent Auto 0.3 % (0.2-1.2); Eosinophils Absolute Auto 0.2 K/mm3 (0-0.3); Eosinophils Percent Auto 2.6 % (0-4.4); Hematocrit 39.5 % (42.0-52.0); Hemoglobin 12.5 g/dL (14.0-18.0); Immature Granulocyte Absolute 0.05 K/mm3 (0.00-0.031); Immature Granulocyte Percent A 0.8 % (0-0.5); Lymphocytes Absolute Auto 1.15 K/mm3 (0.9-3.2); Lymphocytes Percent Auto 18.9 % (18.3-44.2); Mean Corpuscular HGB Conc 31.6 g/dl (32-36); Mean Corpuscular Hemoglobin 29.6 pg (26-34); Mean Corpuscular Volume 93.4 fl (80-100); Mean Platelet Volume 9.9 fl (7.4-10.4); Monocytes Absolute Auto 0.7 K/mm3 (0.1-0.6); Neutrophils Absolute Auto 4.1 K/mm3 (1.3-6.7); Neutrophils Percent Auto 66.4 % (45.5-73.1); Platelet Count Result 246 k/mm3 (150-375); Red Blood Count 4.23 M/mm3 (4.6-6.20); Red Cell Distribution Width 13.5 % (11.5-14.5); White Blood Count 6.1 K/mm3 (4.5-10.0)
[2024-10-02 05:53] LABS: Alanine Aminotransferase 26 U/L (6-50); Albumin Level 3.4 g/dL (3.5-5.1); Alkaline Phosphatase 70 U/L (38-126); Anion Gap 7 mmol/L (4-12); Aspartate Amino Transferase 28 U/L (17-59); Bilirubin,Total 0.5 mg/dL (0.2-1.3); Blood Urea Nitrogen 8 mg/dL (9-20); Calcium 8.8 mg/dL (8.4-10.2); Carbon Dioxide 32 mmol/L (22-30); Chloride 101 mmol/L (98-107); Cholesterol 108 mg/dL (0-200); Estimated CRCL calculation 69 ml/min; Estimated Glomerular Filt Rate > 60; Glucose 125 mg/dL (65-110); HDL Direct 29 mg/dL; Magnesium 1.9 mg/dL (1.6-2.3); Sodium 140 mmol/L (137-145); Triglycerides 114 mg/dL (<150)
[2024-10-02 06:04] LABS: LDL Cholesterol Direct 49 mg/dL
[2024-10-02] MEDS: FLUTICASONE/SALMETEROL 115-21 MCG INHALER 1 PUFF 2 PUFF INHALATION ×2 (07:59→20:12)
--- NOTE | 2024-10-02 08:26 | PM.IMPN ---
Progress Note: A&P Assessment and Plan (1) HTN (hypertension): Code(s): I10 - Essential (primary) hypertension Status: Acute Assessment and Plan: -continue home medication (2) Acute exacerbation of chronic obstructive pulmonary disease (COPD): Code(s): J44.1 - Chronic obstructive pulmonary disease with (acute) exacerbation Status: Acute Assessment and Plan: ? COPD, stable, acute exacerbation ? continue telemetry monitoring ? continue oxygen titration keep Spo2 >93% ? continue Duoneb tx q 4hrs as needed for wheezing or SOB ? activity as tolerated ? check vitals q 4 hrs (3) Tobacco dependence: Code(s): F17.200 - Nicotine dependence, unspecified, uncomplicated Status: Acute (4) Alcoholism: Code(s): F10.20 - Alcohol dependence, uncomplicated Status: Acute (5) Elevated troponin: Code(s): R79.89 - Other specified abnormal findings of blood chemistry Status: Acute Assessment and Plan: Troponin elevated mild right flat, EKG unchanged compared to prior, echocardiogram from last month without any significant abnormality -cardiology consulted -continue telemetry monitoring -chest imaging without any pulmonary edema, or pleural effusion (6) Cerebrovascular accident, old: Code(s): Z86.73 - Personal history of transient ischemic attack (TIA), and cerebral infarction without residual deficits Status: Acute Plan Continue home medications: VTE Prophylaxis: SCDs DIET: Heart healthy Anticipated hospital stay: >2 days 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 Patient is a poor historian, he denies any chest pain nausea vomiting fevers or chills at this time. CTA chest negative, cardiology consulted in the ED 10/02/2024: Patient seen this morning sitting chair side in no acute distress denies any chest pain, nausea vomiting fever chills. Patient unable to provide reliable HPI at this time. Waiting to be seen by Cardiology this morning. Review of Systems Review of Systems: ROS unobtainable: Yes unobtainable due to medical condition Exam Narrative: GENERAL: Well-appearing, well-nourished, and in no acute distress. HEAD: Normocephalic, atraumatic. EYES: PERRLA and EOMI. ENT: Nares clear, no rhinorrhea or epistaxis. Mucous membranes moist. NECK: Supple. CHEST: Clear to auscultation. No respiratory distress. HEART: Regular rate and rhythm. No murmur heard. Normal peripheral pulses. ABDOMEN: Soft, nontender, nondistended, normal active bowel sounds. EXTREMITIES: Normal range of motion right upper extremity is contracted. No edema. SKIN: Warm, dry, no rash. NEURO: No focal deficits. Alert and oriented x3. PSYCH: Normal mood and affect. Objective Data Vital Signs Vital Signs: Vital Signs - 24 hr 10/01/24 10:45 10/01/24 11:15 10/01/24 12:00 Temperature 97.6 F Pulse Rate 76 92 Respiratory Rate 28 H Blood Pressure 157/91 H Pulse Oximetry 100 100 Oxygen Delivery Nasal Cannula Oxygen Flow Rate 2 Fraction of Inspired Oxygen 10/01/24 14:00 10/01/24 16:00 10/01/24 16:15 Temperature 98.5 F Pulse Rate 76 74 72 Respiratory Rate 28 H 20 Blood Pressure 149/84 H Pulse Oximetry 100 Oxygen Delivery Oxygen Flow Rate Fraction of Inspired Oxygen 10/01/24 16:25 10/01/24 20:18 10/01/24 20:18 Temperature Pulse Rate 76 77 Respiratory Rate 20 20 Blood Pressure Pulse Oximetry 95 Oxygen Delivery Nasal Cannula Oxygen Flow Rate 2 Fraction of Inspired Oxygen 28 10/01/24 20:29 10/01/24 21:06 10/02/24 06:00 Temperature 97.1 F L 97.0 F L Pulse Rate 75 69 73 Respiratory Rate 20 18 20 Blood Pressure 155/71 H 136/77 Pulse Oximetry 100 100 Oxygen Delivery Oxygen Flow Rate Fraction of Inspired Oxygen 10/02/24 08:00 Temperature Pulse Rate 78 Respiratory Rate 20 Blood Pressure Pulse Oximetry Oxygen Delivery Oxygen Flow Rate Fraction of Inspired Oxygen Intake/Output Intake/Output: Intake & Output 09/29/24 09/30/24 10/01/24 10/02/24 23:59 23:59 23:59 23:59 Intake Total 200 200 Output Total 565 Balance -365 200 Meds/Results Medications: Active Medications Generic Name Dose Route Start Last Admin Trade Name Freq PRN Reason Stop Dose Admin Albuterol/Ipratropium 3 ml 10/01/24 15:25 Ipratropium 0.5 Mg/Albuterol Sulfate 2.5 Mg Ampul.Neb 3 Ml INHALATION Q6HRT PRN Dyspnea Albuterol/Ipratropium 3 ml 10/01/24 20:00 10/02/24 07:59 Ipratropium 0.5 Mg/Albuterol Sulfate 2.5 Mg Ampul.Neb 3 Ml INHALATION 3 ml Q6HRT KELVIN Administration Amlodipine Besylate 5 mg 10/02/24 09:00 Amlodipine Besylate 5 Mg Tablet PO DAILY [facility] Aspirin 81 mg 10/02/24 08:00 Aspirin 81 Mg Chewable Tablet PO DAILY@0800 [facility] Atorvastatin Calcium 80 mg 10/02/24 09:00 Atorvastatin 40 Mg Tablet PO DAILY [facility] Dextrose 12.5 gm 10/01/24 15:38 Dextrose 50% 25 Gm/50 Ml Syringe IV PUSH PRN PRN Hypoglycemia Protocol Empagliflozin 10 mg 10/02/24 09:00 Empagliflozin 10 Mg Tablet PO DAILY [facility] Enoxaparin Sodium 40 mg 10/02/24 09:00 Enoxaparin 40 Mg/0.4 Ml Syringe SUB-Q DAILY [facility] Glucagon 1 mg 10/01/24 15:38 Glucagon For Inj 1 Mg Vial IM PRN PRN Hypoglycemia Protocol Glucose 15 gm 10/01/24 15:38 Glucose Oral Gel 15 Gm Of Glucse In 37.5 Gm Tube PO PRN PRN Hypoglycemia Protocol Dextrose 1,000 mls @ 100 mls/hr 10/01/24 15:38 Dextrose 5% 1,000 Ml IVPB PRN PRN Hypoglycemia Protocol Insulin Aspart 1 - 2 units 10/01/24 21:00 10/01/24 20:21 Insulin Aspart (*Bkc) 100 Units/Ml SUB-Q Not Given HS [facility] Protocol Insulin Aspart 2 - 5 units 10/01/24 17:00 10/01/24 16:46 Insulin Aspart (*Bkc) 100 Units/Ml SUB-Q Not Given TIDWM [facility] Protocol Lisinopril 30 mg 10/02/24 09:00 Lisinopril 10 Mg Tablet PO DAILY [facility] Fluticasone/Salmeterol 2 puff 10/01/24 20:00 10/02/24 07:59 Fluticasone/Salmeterol 115-21 Mcg Inhaler 1 Puff INHALATION 2 puff Q12HRT [facility] Administration Radiology Results: ITS Impressions Cervical Spine CT 10/01/24 06:39 IMPRESSION: 1. No fracture. 2. Mild cervical spondylosis. Head CT 10/01/24 06:42 IMPRESSION: 1. Old infarcts in the brain. Chest X-Ray 10/01/24 06:59 IMPRESSION: 1. No acute cardiopulmonary disease. Wrist X-Ray 10/01/24 07:00 IMPRESSION: 1. No acute fracture. Hip/Pelvis X-Ray 10/01/24 07:01 IMPRESSION: 1. No acute fracture. Chest CTA 10/01/24 08:42 IMPRESSION: 1. No pulmonary embolism or other acute cardiopulmonary disease. Sensitivity decreased in some of the segmental and subsegmental pulmonary arteries in the lower lungs due to respiratory motion artifact. 2. Mild emphysema. Labs Labs: Laboratory Results - last 24 hr 10/01/24 10/01/24 10/01/24 09:50 09:51 16:43 WBC RBC Hgb Hct MCV MCH MCHC RDW Plt Count MPV Immature Gran % (Auto) Neut % (Auto) Lymph % (Auto) [place] % (Auto) Eos % (Auto) Baso % (Auto) Lymph # (Auto) [place] # (Auto) Eos # (Auto) Baso # (Auto) Abs Immat Gran (auto) Absolute Neuts (auto) Absolute Nucleated RBC Nucleated RBC % Sodium Potassium Chloride Carbon Dioxide Anion Gap BUN Creatinine Estim Creat Clear Calc Estimated GFR Glucose POC Capillary Glucose 125 H Hemoglobin A1c Calcium Magnesium Total Bilirubin AST ALT Alkaline Phosphatase Troponin I 0.045 H* Total Protein Albumin Triglycerides Cholesterol LDL Cholesterol Direct HDL Direct Urine Color Dark yellow Urine Appearance Clear Urine pH 5.5 Ur Specific [place] > 1.045 H Urine Protein 3+ H Urine Glucose (UA) Negative Urine Ketones Trace H Ur Blood (Man) Negative Urine Nitrate Negative Urine Bilirubin Negative Urine Urobilinogen 1.0 Add Ur Microanalysis Reviewed Leukocyte Esterase Rfl Negative Urine RBC 0-2 Urine WBC 0-5 Ur Squamous Epith Cells None seen Urine Bacteria None seen Urine Casts 6-10 10/02/24 05:27 WBC 6.1 RBC 4.23 L Hgb 12.5 L Hct 39.5 L MCV 93.4 MCH 29.6 MCHC 31.6 L RDW 13.5 Plt Count 246 MPV 9.9 Immature Gran % (Auto) 0.8 H Neut % (Auto) 66.4 Lymph % (Auto) 18.9 [place] % (Auto) 11.0 H Eos % (Auto) 2.6 Baso % (Auto) 0.3 Lymph # (Auto) 1.15 [place] # (Auto) 0.7 H Eos # (Auto) 0.2 Baso # (Auto) 0.0 Abs Immat Gran (auto) 0.05 H Absolute Neuts (auto) 4.1 Absolute Nucleated RBC 0.000 Nucleated RBC % 0.0 Sodium 140 Potassium 4.0 Chloride 101 Carbon Dioxide 32 H Anion Gap 7 BUN 8 L Creatinine 1.04 Estim Creat Clear Calc 69 Estimated GFR > 60 Glucose 125 H POC Capillary Glucose Hemoglobin A1c 7.0 H Calcium 8.8 Magnesium 1.9 Total Bilirubin 0.5 AST 28 ALT 26 Alkaline Phosphatase 70 Troponin I Total Protein 7.0 Albumin 3.4 L Triglycerides 114 Cholesterol 108 LDL Cholesterol Direct 49 HDL Direct 29 Urine Color Urine Appearance Urine pH Ur Specific [place] Urine Protein Urine Glucose (UA) Urine Ketones Ur Blood (Man) Urine Nitrate Urine Bilirubin Urine Urobilinogen Add Ur Microanalysis Leukocyte Esterase Rfl Urine RBC Urine WBC Ur Squamous Epith Cells Urine Bacteria Urine Casts
[2024-10-02] MEDS: amLODIPine BESYLATE 5 MG TABLET PO (08:39)
[2024-10-02] MEDS: EMPAGLIFLOZIN 10 MG TABLET PO (08:40)
[2024-10-02] MEDS: ATORVASTATIN 40 MG TABLET 80 MG PO (08:40)
[2024-10-02] MEDS: lisinopriL 10 MG TABLET 30 MG PO (08:40)
[2024-10-02] MEDS: ENOXAPARIN 40 MG/0.4 ML SYRINGE SUB-Q (08:40)
[2024-10-02] MEDS: ASPIRIN 81 MG CHEWABLE TABLET PO (08:40)
[2024-10-02 08:59] LABS: Glucose Point of Care 125 mg/dl (65-105)
[2024-10-02 11:39] LABS: Glucose Point of Care 187 mg/dl (65-105)
[2024-10-02 12:40] LABS: Glucose Point of Care 167 mg/dl (65-105)
[2024-10-02] MEDS: GABAPENTIN 300 MG CAPSULE BY MOUTH (17:08)
[2024-10-02 17:41] LABS: Glucose Point of Care 115 mg/dl (65-105)
[2024-10-03] VITALS (10 sets, daily range): BP systolic 143; BP diastolic 80; PULSE 72–82; RESP 16–20; TEMP 36.7; O2SAT 89–99
[2024-10-03] MEDS: IPRATROPIUM 0.5 MG/ALBUTEROL SULFATE 2.5 MG AMPUL.NEB 3 ML INHALATION ×2 (01:16→07:38)
[2024-10-03 04:42] LABS: Glucose Point of Care 163 mg/dl (65-105)
[2024-10-03] MEDS: FLUTICASONE/SALMETEROL 115-21 MCG INHALER 1 PUFF 2 PUFF INHALATION (07:48)
[2024-10-03 08:48] LABS: Glucose Point of Care 126 mg/dl (65-105)
--- NOTE | 2024-10-03 08:49 | PM.IMPN ---
Progress Note: A&P Assessment and Plan (1) HTN (hypertension): Code(s): I10 - Essential (primary) hypertension Status: Acute Assessment and Plan: -continue home medication (2) Acute exacerbation of chronic obstructive pulmonary disease (COPD): Code(s): J44.1 - Chronic obstructive pulmonary disease with (acute) exacerbation Status: Acute Assessment and Plan: ? COPD, stable, acute exacerbation ? continue telemetry monitoring ? continue oxygen titration keep Spo2 >93% ? continue Duoneb tx q 4hrs as needed for wheezing or SOB ? activity as tolerated ? check vitals q 4 hrs (3) Tobacco dependence: Code(s): F17.200 - Nicotine dependence, unspecified, uncomplicated Status: Acute (4) Alcoholism: Code(s): F10.20 - Alcohol dependence, uncomplicated Status: Acute (5) Elevated troponin: Code(s): R79.89 - Other specified abnormal findings of blood chemistry Status: Acute Assessment and Plan: Troponin elevated mild right flat, EKG unchanged compared to prior, echocardiogram from last month without any significant abnormality -cardiology consulted -continue telemetry monitoring -chest imaging without any pulmonary edema, or pleural effusion (6) Cerebrovascular accident, old: Code(s): Z86.73 - Personal history of transient ischemic attack (TIA), and cerebral infarction without residual deficits Status: Acute Plan Continue home medications: VTE Prophylaxis: SCDs DIET: Heart healthy Anticipated hospital stay: >2 days Code Status: full Subjective Date/time seen: 10/03/24 08:49 Interval history: 79-year-old male with PMHx: Of HTN, COPD on 2 L oxygen type 2 diabetes presented to the ER with complaints of SOB. Patient is a poor historian, he denies any chest pain nausea vomiting fevers or chills at this time. CTA chest negative, cardiology consulted in the ED 10/02/2024: Patient seen this morning sitting chair side in no acute distress denies any chest pain, nausea vomiting fever chills. Patient unable to provide reliable HPI at this time. Waiting to be seen by Cardiology this morning. 10/03 pt is seen and examined. Cardiology saw pt on 10/01 and signed off. Review of Systems Review of Systems: All other systems are reviewed and negative except as noted in history above. ROS unobtainable: Yes unobtainable due to medical condition Exam Narrative: GENERAL: Well-appearing, well-nourished, and in no acute distress. HEAD: Normocephalic, atraumatic. EYES: PERRLA and EOMI. ENT: Nares clear, no rhinorrhea or epistaxis. Mucous membranes moist. NECK: Supple. CHEST: Clear to auscultation. No respiratory distress. HEART: Regular rate and rhythm. No murmur heard. Normal peripheral pulses. ABDOMEN: Soft, nontender, nondistended, normal active bowel sounds. EXTREMITIES: Normal range of motion right upper extremity is contracted. No edema. SKIN: Warm, dry, no rash. NEURO: No focal deficits. Alert and oriented x3. PSYCH: Normal mood and affect. Objective Data Vital Signs Vital Signs: Vital Signs - 24 hr 10/02/24 08:00 10/02/24 08:18 10/02/24 10:08 Temperature Pulse Rate 78 Respiratory Rate 20 Blood Pressure Pulse Oximetry Oxygen Delivery Room Air Room Air Fraction of Inspired Oxygen 10/02/24 13:10 10/02/24 13:30 10/02/24 14:00 Temperature 97.8 F Pulse Rate 76 Respiratory Rate 20 16 Blood Pressure 139/65 Pulse Oximetry 97 Oxygen Delivery Room Air Fraction of Inspired Oxygen 10/02/24 16:07 10/02/24 20:12 10/02/24 20:22 Temperature Pulse Rate 68 98 93 Respiratory Rate 20 20 Blood Pressure Pulse Oximetry Oxygen Delivery Fraction of Inspired Oxygen 10/02/24 22:00 10/03/24 01:16 10/03/24 01:27 Temperature 97.1 F L Pulse Rate 78 79 82 Respiratory Rate 16 18 18 Blood Pressure 130/62 Pulse Oximetry 93 Oxygen Delivery Fraction of Inspired Oxygen 10/03/24 06:00 10/03/24 07:38 10/03/24 07:38 Temperature 98.1 F Pulse Rate 76 72 Respiratory Rate 16 20 Blood Pressure 143/80 H Pulse Oximetry 95 94 Oxygen Delivery Room Air Fraction of Inspired Oxygen 21 10/03/24 07:48 Temperature Pulse Rate 74 Respiratory Rate 20 Blood Pressure Pulse Oximetry Oxygen Delivery Fraction of Inspired Oxygen Intake/Output Intake/Output: Intake & Output 09/30/24 10/01/24 10/02/24 10/04/24 23:59 23:59 23:59 00:59 Intake Total 200 920 300 Output Total 565 Balance -365 920 300 Meds/Results Medications: Active Medications Generic Name Dose Route Start Last Admin Trade Name Freq PRN Reason Stop Dose Admin Albuterol/Ipratropium 3 ml 10/01/24 15:25 Ipratropium 0.5 Mg/Albuterol Sulfate 2.5 Mg Ampul.Neb 3 Ml INHALATION Q6HRT PRN Dyspnea Albuterol/Ipratropium 3 ml 10/01/24 20:00 10/03/24 07:38 Ipratropium 0.5 Mg/Albuterol Sulfate 2.5 Mg Ampul.Neb 3 Ml INHALATION 3 ml Q6HRT KELVIN Administration Amlodipine Besylate 5 mg 10/02/24 09:00 10/02/24 08:39 Amlodipine Besylate 5 Mg Tablet PO 5 mg DAILY KELVIN Administration Aspirin 81 mg 10/02/24 08:00 10/02/24 08:40 Aspirin 81 Mg Chewable Tablet PO 81 mg DAILY@0800 KELVIN Administration Atorvastatin Calcium 80 mg 10/02/24 09:00 10/02/24 08:40 Atorvastatin 40 Mg Tablet PO 80 mg DAILY KELVIN Administration Dextrose 12.5 gm 10/01/24 15:38 Dextrose 50% 25 Gm/50 Ml Syringe IV PUSH PRN PRN Hypoglycemia Protocol Empagliflozin 10 mg 10/02/24 09:00 10/02/24 08:40 Empagliflozin 10 Mg Tablet PO 10 mg DAILY KELVIN Administration Enoxaparin Sodium 40 mg 10/02/24 09:00 10/02/24 08:40 Enoxaparin 40 Mg/0.4 Ml Syringe SUB-Q 40 mg DAILY KELVIN Administration Gabapentin 300 mg 10/02/24 17:00 10/02/24 17:08 Gabapentin 300 Mg Capsule BY MOUTH 300 mg BID KELVIN Administration Glucagon 1 mg 10/01/24 15:38 Glucagon For Inj 1 Mg Vial IM PRN PRN Hypoglycemia Protocol Glucose 15 gm 10/01/24 15:38 Glucose Oral Gel 15 Gm Of Glucse In 37.5 Gm Tube PO PRN PRN Hypoglycemia Protocol Dextrose 1,000 mls @ 100 mls/hr 10/01/24 15:38 Dextrose 5% 1,000 Ml IVPB PRN PRN Hypoglycemia Protocol Insulin Aspart 1 - 2 units 10/01/24 21:00 10/03/24 00:25 Insulin Aspart (*Bkc) 100 Units/Ml SUB-Q Not Given HS KELVIN Protocol Insulin Aspart 2 - 5 units 10/01/24 17:00 10/02/24 17:29 Insulin Aspart (*Bkc) 100 Units/Ml SUB-Q Not Given TIDWM [facility] Protocol Lisinopril 30 mg 10/02/24 09:00 10/02/24 08:40 Lisinopril 10 Mg Tablet PO 30 mg DAILY KELVIN Administration Fluticasone/Salmeterol 2 puff 10/01/24 20:00 10/03/24 07:48 Fluticasone/Salmeterol 115-21 Mcg Inhaler 1 Puff INHALATION 2 puff Q12HRT KELVIN Administration Radiology Results: ITS Impressions Cervical Spine CT 10/01/24 06:39 IMPRESSION: 1. No fracture. 2. Mild cervical spondylosis. Head CT 10/01/24 06:42 IMPRESSION: 1. Old infarcts in the brain. Chest X-Ray 10/01/24 06:59 IMPRESSION: 1. No acute cardiopulmonary disease. Wrist X-Ray 10/01/24 07:00 IMPRESSION: 1. No acute fracture. Hip/Pelvis X-Ray 10/01/24 07:01 IMPRESSION: 1. No acute fracture. Chest CTA 10/01/24 08:42 IMPRESSION: 1. No pulmonary embolism or other acute cardiopulmonary disease. Sensitivity decreased in some of the segmental and subsegmental pulmonary arteries in the lower lungs due to respiratory motion artifact. 2. Mild emphysema. Labs Labs: Laboratory Results - last 24 hr 10/01/24 10/02/24 10/02/24 20:16 08:43 12:34 POC Capillary Glucose 187 H 125 H 167 H 10/02/24 10/02/24 10/03/24 17:25 20:57 08:42 POC Capillary Glucose 115 H 163 H 126 H
[2024-10-03 09:12] LABS: Hematocrit 39.6 % (42.0-52.0); Hemoglobin 12.4 g/dL (14.0-18.0); Mean Corpuscular HGB Conc 31.3 g/dl (32-36); Mean Corpuscular Hemoglobin 29.1 pg (26-34); Mean Platelet Volume 10.1 fl (7.4-10.4); Platelet Count Result 258 k/mm3 (150-375); Red Blood Count 4.26 M/mm3 (4.6-6.20); Red Cell Distribution Width 13.5 % (11.5-14.5); White Blood Count 6.3 K/mm3 (4.5-10.0)
[2024-10-03 09:25] LABS: Anion Gap 5 mmol/L (4-12); Blood Urea Nitrogen 9 mg/dL (9-20); Calcium 9.1 mg/dL (8.4-10.2); Carbon Dioxide 33 mmol/L (22-30); Chloride 103 mmol/L (98-107); Estimated CRCL calculation 58 ml/min; Estimated Glomerular Filt Rate 58; Glucose 141 mg/dL (65-110); Potassium 4.1 mmol/L (3.4-5.0); Sodium 141 mmol/L (137-145)
[2024-10-03] MEDS: ENOXAPARIN 40 MG/0.4 ML SYRINGE SUB-Q (09:37)
[2024-10-03] MEDS: lisinopriL 10 MG TABLET 30 MG PO (09:37)
[2024-10-03] MEDS: amLODIPine BESYLATE 5 MG TABLET PO (09:38)
[2024-10-03] MEDS: EMPAGLIFLOZIN 10 MG TABLET PO (09:38)
[2024-10-03] MEDS: ASPIRIN 81 MG CHEWABLE TABLET PO (09:38)
[2024-10-03] MEDS: ATORVASTATIN 40 MG TABLET 80 MG PO (09:38)
[2024-10-03] MEDS: GABAPENTIN 300 MG CAPSULE BY MOUTH (09:38)
--- NOTE | 2024-10-03 10:18 | P.DS_ITS ---
DS: Admitting Diagnosis Discharge Date 10/03 Admitting Diagnosis sob DS: Discharge Diagnosis Discharge Diagnosis (1) HTN (hypertension): Code(s): I10 - Essential (primary) hypertension Status: Acute Assessment and Plan: -continue home medication (2) Acute exacerbation of chronic obstructive pulmonary disease (COPD): Code(s): J44.1 - Chronic obstructive pulmonary disease with (acute) exacerbation Status: Acute Assessment and Plan: ? (3) Tobacco dependence: Code(s): F17.200 - Nicotine dependence, unspecified, uncomplicated Status: Acute (4) Alcoholism: Code(s): F10.20 - Alcohol dependence, uncomplicated Status: Acute (5) Elevated troponin: Code(s): R79.89 - Other specified abnormal findings of blood chemistry Status: Acute (6) Cerebrovascular accident, old: Code(s): Z86.73 - Personal history of transient ischemic attack (TIA), and cerebral infarction without residual deficits Status: Acute DS: Summary Hospital Course Hospital Course: CC 9-year-old male past medical history of hypertension, COPD on 2 L oxygen, type 2 diabetes who presented to the ER on account of shortness of breath the patient is poor historian unable to report due to history. Number denies any chest pain, vomiting, diarrhea dysuria. Er eval notable for temperature 7.6, post recent 6, respiratory 28, saturating 100% on room air. Blood pressure 157/91. Labs ABG 7.42/41.5/57.9/26.4, troponin 0.04 full repeated 0.045. CTA chest negative. Cardiology consulted from the ER. Pt worked with pt/ot- home health is recommended Several issues were addressed: #copd acute exacerbation ?continue telemetry monitoring ?continue oxygen titration keep Spo2 >93%- pt remained on ra during his hospital staty. Today-during rounds, he reports subjective SOB but oxygenation is well maintained and pt is not in any distress. He is very talkative as well and able to speak in full sentences with no issues. 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 - smoking cessation is imperative # elev trop Troponin elevated mild right flat, EKG unchanged compared to prior, echocardiogram from last month without any significant abnormality -cardiology consulted -continue telemetry monitoring -chest imaging without any pulmonary edema, or pleural effusion cardiology was consulted: Troponin elevation is mild and flat. EKGs are unchanged compared to prior. Recent echocardiogram from last month without significant abnormality. He is not endorsing any specific cardiac complaints to me (although he is a poor historian). NT pro BNP elevated, however chest imaging without any pulmonary edema, pleural effusions. No lower extremity edema. He does not appear to be volume overloaded and in CHF. At this time, no additional cardiac testing or workup recommended. Cardiology will sign off, please call us if needed. Time spent discussing smoking cessation with patient: more than 10 minutes Status at Discharge Functional status at discharge: independent ambulation Overall status at discharge: patient is progressing back to baseline Time Spent with Patient Time attestation: Total time spent providing and/or coordinating discharge services: Time spent: Greater than 30 minutes Exam Narrative: GENERAL: Well-appearing, well-nourished, and in no acute distress. HEAD: Normocephalic, atraumatic. EYES: PERRLA and EOMI. ENT: Nares clear, no rhinorrhea or epistaxis. Mucous membranes moist. NECK: Supple. CHEST: Clear to auscultation. No respiratory distress. HEART: Regular rate and rhythm. No murmur heard. Normal peripheral pulses. ABDOMEN: Soft, nontender, nondistended, normal active bowel sounds. EXTREMITIES: Normal range of motion right upper extremity is contracted. No edema. SKIN: Warm, dry, no rash. NEURO: No focal deficits. Alert and oriented x3. PSYCH: Normal mood and affect. Const: General: comfortable DS: Data Data Completed and Pending Completed studies during hospitalization: chets CTA, chets xray, pelvis/hip xray, wrist xray Labs on day of discharge: Labs from last 24 hours 10/03/24 10/03/24 10/02/24 09:07 08:42 20:57 WBC 6.3 RBC 4.26 L Hgb 12.4 L Hct 39.6 L MCV 93.0 MCH 29.1 MCHC 31.3 L RDW 13.5 Plt Count 258 MPV 10.1 Sodium 141 Potassium 4.1 Chloride 103 Carbon Dioxide 33 H Anion Gap 5 BUN 9 Creatinine 1.25 Estim Creat Clear Calc 58 Estimated GFR 58 L Glucose 141 H POC Capillary Glucose 126 H 163 H Calcium 9.1 10/02/24 10/02/24 10/01/24 17:25 12:34 20:16 WBC RBC Hgb Hct MCV MCH MCHC RDW Plt Count MPV Sodium Potassium Chloride Carbon Dioxide Anion Gap BUN Creatinine Estim Creat Clear Calc Estimated GFR Glucose POC Capillary Glucose 115 H 167 H 187 H Calcium Discharge Plan Discharge Attending physician on discharge: Agustín Caraballo Consulting providers: Jono Medrano Discharging Clinician: Misty Fernandez Patient Disposition: Home Health Service Activity: november shower Diet: heart healthy Discharge Instructions: you were admitted for shortness of breath. your cardiac enzymes were elavted and we consulted cardiology. Recent echocardiogram from last month wdidnot show any significant abnormality. Chest imaging did not show any pulmonary edema, pleural effusions. No lower extremity edema. No additional cardiac testing or workup recommended. WE will provide phone number for pulmonology group- it is improtant that you schedule follow up. Please stop smoking- it doensot help your lung and makes you short of breat which only will get worse. WE will send you refills for your breathing treatment and inhaler to [facility]. Patient Instructions: Antibiotic Form Patient Language: [place] Citizen Stand Alone Forms: General Discharge Information Follow-up/Referrals: [facility] [Provider Group] - 1 Week Xander,YAN Huber [Primary Care Provider] - 2 Weeks Discharge Medications: Continued amlodipine 5 mg tablet 5 mg PO DAILY Qty: 60 1RF lisinopril 30 mg tablet 30 mg PO DAILY Qty: 60 0RF Jardiance 10 mg Tablet 10 mg PO DAILY 30 Days Qty: 30 2RF atorvastatin 40 mg Tablet 80 mg PO DAILY 30 Days Qty: 60 0RF ipratropium-albuterol 0.5 mg-3 mg(2.5 mg base)/3 mL Solution For Nebulization 3 ml inhalation Q6HRT PRN (Reason: Dyspnea) Qty: 60 1RF albuterol sulfate 90 mcg/actuation HFA aerosol inhaler See Rx Instructions .ROUTE .COMPLEX PRN (Reason: Shortness Of Breath) Qty: 2 2RF Rx Instructions: 1 inh inhaled (DME) nebulizer accessories Kit See Rx Instructions .Route Qty: 1 0RF Rx Instructions: As directed (DME) nebulizer and compressor Device See Rx Instructions .Route Qty: 1 0RF Rx Instructions: As directed budesonide-formoterol [Symbicort] 160-4.5 mcg/actuation HFA aerosol inhaler 1 inh INHALATION DAILY Qty: 1 1RF gabapentin 300 mg capsule See Rx Instructions .ROUTE .COMPLEX Qty: 60 3RF Dose Instruction: TAKE 1 CAPSULE BY MOUTH TWICE DAILY Rx Instructions: TAKE 1 CAPSULE BY MOUTH TWICE DAILY Date of admission: 10/01/24 09:22 Primary Care Provider: NashCecile Admitting Provider: Jacinto Booker Attending physician on admission: Jacinto Booker Condition: Serious Hospitalist MIPS Heart Failure (Exclusion) Patient has history of Heart Transplant or Left Ventricular Assistive Device?: No IF YES, STOP HERE Heart Failure (Qualifier) Patient has current or prior documentation of LVEF less than or equal to 40%, or mod/servere depressed LVSF?: No IF NO, STOP HERE
[2024-10-03 12:06] LABS: Glucose Point of Care 234 mg/dl (65-105)
== END 2024-10-03 14:10 | disposition home health service (06) ==
LOC: ANHED 09:56 → ANHIMU 15:34 → ANH3MED 10-03 10:35 → ANHIMU 10-04 12:24
PROVIDERS: Nurse Practitioner; Admitting Provider Internal Medicine; Emergency Provider Emergency Medicine; PCP Nurse Practitioner Family; Visit Provider Internal Medicine
DX: J44.1 Chronic obstructive pulmonary disease with (acute) exacerbation (principal); S09.90XA Unspecified injury of head, initial encounter; W18.30XA Fall on same level, unspecified, initial encounter; M25.531 Pain in right wrist; R79.89 Other specified abnormal findings of blood chemistry; E05.90 Thyrotoxicosis, unspecified without thyrotoxic crisis or storm; Z86.73 Personal history of transient ischemic attack (TIA), and cerebral infarction without residual deficits; F10.20 Alcohol dependence, uncomplicated; E11.43 Type 2 diabetes mellitus with diabetic autonomic (poly)neuropathy; I10 Essential (primary) hypertension; F17.210 Nicotine dependence, cigarettes, uncomplicated; Z20.822 Contact with and (suspected) exposure to COVID-19
CPT/HCPCS: 36415; 36600; 70450; 71045; 71275; 72125; 73110; 73502; 80048; 80053; 80061; 81001; 82805; 82948; 83036; 83605; 83735; 83880; 84484; 85018; 85025; 85027; 85610; 85730; 87637; 93005; 94618; 94640; 96372; 97161; 97165; 99285; A9270; G0378; J1650; Q9967